=== PATIENT | female | born 1940 | race Caucasian/White ===

== ENCOUNTER 2017-03-14 10:34 | Outpatient (RCR) | payer MEDICARE, BC, SELFPAY ==
[2017-02-20 01:15] VITALS: BP 124/70; BP 152/80
[2017-03-14 12:25] LABS: International Normalized Ratio 3.5; Prothrombin Time (Protime)PT. 33.7 SECONDS (11.7-14.9)
== END 2017-03-14 10:50 | disposition home or self-care (01) ==
LOC: LAB 10:34
PROVIDERS: Family Provider Family Medicine; PCP Family Medicine; Visit Provider Internal Medicine Cardiovascular Disease
DX: I48.3 Typical atrial flutter (principal); Z79.01 Long term (current) 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
CPT/HCPCS: 36415; 85610

== ENCOUNTER 2017-04-17 10:40 | Outpatient (RCR) | payer MEDICARE, BC, SELFPAY ==
[2017-03-31 12:05] LABS: International Normalized Ratio 3.2; Prothrombin Time (Protime)PT. 31.7 SECONDS (11.7-14.9)
[2017-04-07 12:40] LABS: Prothrombin Time (Protime)PT. 29.9 SECONDS (11.7-14.9)
[2017-04-17 11:19] LABS: Prothrombin Time (Protime)PT. 33.7 SECONDS (11.7-14.9)
[2017-04-17 11:27] LABS: International Normalized Ratio 3.5
== END 2017-04-17 11:15 | disposition home or self-care (01) ==
LOC: LAB 10:40
PROVIDERS: Family Provider Family Medicine; PCP Family Medicine; Visit Provider Internal Medicine Cardiovascular Disease
DX: I48.3 Typical atrial flutter (principal); Z79.01 Long term (current) 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
CPT/HCPCS: 36415; 85610

== ENCOUNTER 2017-05-15 11:57 | Outpatient (RCR) | payer MEDICARE, BC, SELFPAY ==
[2017-05-15 12:55] LABS: Prothrombin Time (Protime)PT. 39.3 SECONDS (11.7-14.9)
== END 2017-05-15 12:00 | disposition home or self-care (01) ==
LOC: LAB 11:57
PROVIDERS: Family Provider Family Medicine; PCP Family Medicine; Visit Provider Internal Medicine Cardiovascular Disease
DX: I48.3 Typical atrial flutter (principal); Z79.01 Long term (current) 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
CPT/HCPCS: 36415; 85610

== ENCOUNTER 2017-06-09 10:38 | Outpatient (RCR) | payer MEDICARE, BC, SELFPAY ==
[2017-05-26 11:30] LABS: Prothrombin Time (Protime)PT. 36.3 SECONDS (11.7-14.9)
[2017-05-26 11:32] LABS: International Normalized Ratio 3.6
[2017-06-09 11:31] LABS: International Normalized Ratio 2.7; Prothrombin Time (Protime)PT. 28.9 SECONDS (11.7-14.9)
== END 2017-06-09 11:00 | disposition home or self-care (01) ==
LOC: LAB 10:38
PROVIDERS: Family Provider Family Medicine; PCP Family Medicine; Visit Provider Internal Medicine Cardiovascular Disease
DX: I48.3 Typical atrial flutter (principal); Z79.01 Long term (current) 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
CPT/HCPCS: 36415; 85610

== ENCOUNTER → 2017-06-20 08:43 | Outpatient (CLI) | payer MEDICARE, BC, SELFPAY ==
[2017-06-20 09:13] LABS: Absolute Lymphocyte Count 0.84 X10^3/ul (0.83-4.51); Absolute Neutrophil Count 3.1 X10^3/uL (2.0-7.7); Basophil# 0.07 X10^3/uL; Basophil% 1.3 % (0-1); Eosinophil# 0.28 X10^3/uL; Eosinophils% 5.3 % (0-5); Hematocrit 38.9 % (37-47); Hemoglobin 12.8 g/dl (12.0-15.0); Lymphocyte # 0.84 X10^3/ul (4.0); Mean Corp Hgb Conc 32.9 g/gl (32-36); Mean Corpuscular Hgb 32.8 pg (27.0-32.0); Mean Corpuscular Volume 99.7 fL (81-99); Mean Platelet Vol. 9.9 fl (6.2-12.0); Monocyte# 0.94 X10^3/uL; Monocyte% 17.9 % (0-10); Neutrophil # 3.12 X10^3/uL (2.7-7.7); Neutrophil % 59.3 % (47-70); Platelet Count 224 K/mm3 (150-450); RBC Distribution Width CV 15.4 % (11.6-14.6); RBC Distribution Width SD 56.1 fl (35.1-43.9); White Blood Count 5.3 K/mm3 (4.4-11.0)
[2017-06-20 09:22] LABS: POSITIVE COUNT NO; POSITIVE DIFFERENTIAL NO; POSITIVE MORPHOLOGY NO
[2017-06-20 10:02] LABS: AST(SGOT) 38 U/L (15-37); Alanine Aminotransfer ALT/SGPT 38 U/L (13-56); Albumin, Serum 3.5 g/dL (3.2-5.0); Alkaline Phosphatase 119 U/L (45-117); Anion Gap 6 (5-15); BUN 26 mg/dL (7-18); BUN/Creat Ratio 16.5 RATIO (10-20); Bilirubin, Direct 0.11 mg/dL (0.00-0.30); Calcium,Total 9.1 mg/dL (8.5-10.1); Chloride 109 mmol/L (98-107); Cholesterol 253 mg/dL (200); Creatinine, Serum 1.58 mg/dL (0.55-1.02); EST Glomerular Filtration Rate 34 mL/min (>60); Est Glom Filt Rate - Afr Amer 41 mL/min (>60); Globulin 3.7 g/dL (2.2-4.2); Glucose 87 mg/dL (74-106); High Density Lipoprotein 59 mg/dL; Protein, Total 7.2 g/dL (6.4-8.2); Sodium Level 141 mmol/L (136-145); T4 Free Direct 1.57 ng/dL (0.76-1.46); Thyroid Stim Hormone (TSH) 3.79 uIU/mL (0.358-3.74); Triglycerides 190 mg/dL; Very Low Density Lipoprotein 38 mg/dL (5-40)
== END ==
PROVIDERS: Family Provider Family Medicine; PCP Family Medicine; Visit Provider Internal Medicine Cardiovascular Disease
DX: E78.5 Hyperlipidemia, unspecified (principal); R06.09 Other forms of dyspnea; Z95.2 Presence of prosthetic heart valve; I05.1 Rheumatic mitral insufficiency; R53.83 Other fatigue; G47.10 Hypersomnia, unspecified; I48.92 Unspecified atrial flutter; I35.1 Nonrheumatic aortic (valve) insufficiency
CPT/HCPCS: 36415; 80048; 80061; 80076; 84439; 84443; 85025

== ENCOUNTER → 2017-06-30 09:50 | Outpatient (CLI) | payer MEDICARE, BC, SELFPAY ==
--- NOTE | 2017-06-30 09:51 | ECHOD_ITS ---
Reason For Study: Eval Valve Replacement Procedure This was a 2D Doppler, Color Flow transthoracic echocardiogram. Exam performed in department. Left Ventricle Normal size and thickness. The estimated ejection fraction is 60 %. Septal motion consistent with IVCD. No regional wall motion abnormalities noted. Right Ventricle Normal size and thickness. Normal systolic function. Atria The left atrium is moderately enlarged. Normal right atrium. Normal atrial septum. Mitral Valve Peak transmitral valve gradient 6 mmHg. Mean transmitral valve gradient 2 mmHg. Trivial mitral valve insufficiency. Stable appearing mechanical mitral valve apparatus. Tricuspid Valve Normal tricuspid valve. Mild (1+) tricuspid valve insufficiency. Right ventricular systolic pressure estimated to be 25 mmHg. Aortic Valve Bioprosthetic aortic valve. Pulmonic Valve Normal pulmonic valve. Trivial pulmonic valve insufficiency. Great Vessels Normal aortic root. Normal arch. Normal inferior vena cava. Inferior vena cava collapse with sniff. Pericardium/Pleural No pericardial effusion. MMode/2D Measurements & Calculations LVIDd: 5.3 cm IVSd: 0.86 cm LVOT diam: 2.1 cm LVIDs: 3.2 cm LVPWd: 0.77 cm LVOT area: 3.6 cm2 RVDd: 3.1 cm FS: 38.9 % Ao root diam: 4.0 cm LAV(MOD-bp): 76.3 ml EDV(MOD-sp4): 87.3 ml LA dimension: 3.7 cm LAV(MOD-bp) Indexed: 44.6 ml/m2 ESV(MOD-sp4): 37.9 ml LAV(MOD-sp2): 77.6 ml EF(MOD-sp4): 56.6 % LAV(MOD-sp4): 56.3 ml SV(MOD-sp4): 49.4 ml LA A4 area: 21.9 cm2 RA A4 area: 14.7 cm2 Time Measurements MV dec time: 0.13 sec Doppler Measurements & Calculations MV E max iván: 110.3 cm/sec Lat Peak E' Iván: 3.7 cm/sec Med Peak E' Iván: 3.1 cm/sec MV A max iván: 62.4 cm/sec E/E' lat: 29.5 E/E' med: 35.6 MV E/A: 1.8 MV V2 max: 125.1 cm/sec MV P1/2t max iván: 123.5 cm/sec Ao V2 max: 215.8 cm/sec MV max P.3 mmHg MV P1/2t: 93.7 msec Ao max P.6 mmHg MV V2 mean: 57.7 cm/sec MV dec slope: 386.1 cm/sec2 Ao V2 mean: 144.6 cm/sec MV mean P.6 mmHg MVA(P1/2t): 2.3 cm2 Ao mean P.3 mmHg MV V2 VTI: 47.1 cm Ao V2 VTI: 50.9 cm MVA(VTI): 2.3 cm2 CHRISTINA(I,D): 2.1 cm2 CHRISTINA(V,D): 2.1 cm2 LV V1 max: 128.7 cm/sec SV(LVOT): 108.7 ml PA V2 max: 93.2 cm/sec LV V1 max P.6 mmHg LV V1 mean P.8 mmHg LV V1 mean: 93.4 cm/sec LV V1 VTI: 30.5 cm PI end-d iván: 84.0 cm/sec TR max iván: 221.9 cm/sec TR max P.7 mmHg Interpretation Summary The estimated ejection fraction is 60 %. The left atrium is moderately enlarged. Mild (1+) tricuspid valve insufficiency. Right ventricular systolic pressure estimated to be 25 mmHg. Stable appearing mechanical mitral valve apparatus with peak/mean gradients of 6 and 2 mm Hg respectively. Normal bioprosthetic aortic valve with peak/mean gradients of 19 and 9 mm Hg respectively. Compared to echo report dated 01/21/2016, no appreciable changes noted. Ordering Physician: Reed Monet Referring Physician: Newton Gibbs Performed By: Bella Bush RDCS, RVT
== END ==
PROVIDERS: Family Provider Family Medicine; PCP Family Medicine; Visit Provider Internal Medicine Cardiovascular Disease
DX: Z98.890 Other specified postprocedural states (principal)
CPT/HCPCS: 93306

== ENCOUNTER → 2017-07-04 08:41 | Outpatient (CLI) | payer MEDICARE, BC, SELFPAY ==
--- NOTE | 2017-07-04 10:54 | PFTCOMP ---
COMPLETE PULMONARY FUNCTION TEST INTERPRETATION Brief HPI: Patient is a 76 year old female, currently under the care of Dr. Monet, who presents to [facility] for complete pulmonary function tests secondary to diagnosis of high risk med use. Respiratory therapist reports good effort and reproducible results. Interpretation: Forced expiration spirometry shows no large airways obstructive ventilatory defect with an FEV1 of 101% predicted. There is no significant bronchodilator response by ATS criteria. Spirograms are of good quality and plateau normally. The respiratory flow volume loop shows a normal pattern. Lung volumes by body plethysmography show a normal total lung capacity at or 4.21 L, 92% predicted. All other lung volumes are within normal limits. Diffusion capacity by carbon monoxide is decreased at 44% predicted. The airway resistance is normal. No previous pulmonary function tests were available for review. Impression: Isolated defect in diffusion capacity consistent with pulmonary hypertension or possible medication side effect. Will need to be followed closely if patient continues on amiodarone.
== END ==
PROVIDERS: Family Provider Family Medicine; PCP Family Medicine; Visit Provider Internal Medicine Cardiovascular Disease
DX: I48.92 Unspecified atrial flutter (principal)
CPT/HCPCS: 94060; 94726; 94729

== ENCOUNTER 2017-07-19 11:20 | Outpatient (RCR) | payer MEDICARE, BC, SELFPAY ==
[2017-07-19 13:12] LABS: International Normalized Ratio 3.5
== END 2017-07-19 12:00 | disposition home or self-care (01) ==
LOC: LAB 11:20
PROVIDERS: Family Provider Family Medicine; PCP Family Medicine; Visit Provider Internal Medicine Cardiovascular Disease
DX: I48.3 Typical atrial flutter (principal); Z79.01 Long term (current) 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
CPT/HCPCS: 36415; 85610

== ENCOUNTER 2017-08-14 09:10 | Outpatient (RCR) | payer MEDICARE, BC, SELFPAY ==
[2017-08-14 10:08] LABS: Prothrombin Time (Protime)PT. 40.2 SECONDS (11.7-14.9)
[2017-08-14 10:11] LABS: International Normalized Ratio 4.1
[2017-08-14 10:33] LABS: AST(SGOT) 33 U/L (15-37); Alanine Aminotransfer ALT/SGPT 35 U/L (13-56); Albumin, Serum 3.4 g/dL (3.2-5.0); Alkaline Phosphatase 116 U/L (45-117); Bilirubin, Direct 0.15 mg/dL (0.00-0.30); Cholesterol 198 mg/dL (200); Globulin 3.8 g/dL (2.2-4.2); High Density Lipoprotein 61 mg/dL; Protein, Total 7.2 g/dL (6.4-8.2); Triglycerides 170 mg/dL; Very Low Density Lipoprotein 34 mg/dL (5-40)
== END 2017-08-14 10:00 | disposition home or self-care (01) ==
LOC: LAB 09:10
PROVIDERS: Family Provider Family Medicine; PCP Family Medicine; Visit Provider Internal Medicine Cardiovascular Disease
DX: I48.3 Typical atrial flutter (principal); E78.5 Hyperlipidemia, unspecified; Z95.2 Presence of prosthetic heart valve; Z79.01 Long term (current) 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
CPT/HCPCS: 36415; 80061; 80076; 85610

== ENCOUNTER 2017-09-15 12:32 | Outpatient (RCR) | payer MEDICARE, BC, SELFPAY ==
[2017-08-21 11:15] LABS: Prothrombin Time (Protime)PT. 36.2 SECONDS (11.7-14.9)
[2017-08-21 11:17] LABS: International Normalized Ratio 3.6
[2017-08-28 11:43] LABS: Prothrombin Time (Protime)PT. 30.9 SECONDS (11.7-14.9)
[2017-09-11 12:18] LABS: International Normalized Ratio 2.3
[2017-09-15 14:00] LABS: International Normalized Ratio 2.4; Prothrombin Time (Protime)PT. 26.1 SECONDS (11.7-14.9)
== END 2017-09-15 14:00 | disposition home or self-care (01) ==
LOC: LAB 12:32
PROVIDERS: Family Provider Family Medicine; PCP Family Medicine; Visit Provider Internal Medicine Cardiovascular Disease
DX: I48.3 Typical atrial flutter (principal); Z79.01 Long term (current) 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
CPT/HCPCS: 36415; 85610

== ENCOUNTER 2017-10-20 10:43 | Outpatient (RCR) | payer MEDICARE, BC, SELFPAY ==
[2017-09-22 12:56] LABS: International Normalized Ratio 3.1; Prothrombin Time (Protime)PT. 32.4 SECONDS (11.7-14.9)
[2017-09-22 13:50] LABS: T4 Free Direct 1.42 ng/dL (0.76-1.46); Thyroid Stim Hormone (TSH) 1.79 uIU/mL (0.358-3.74)
[2017-10-06 12:36] LABS: International Normalized Ratio 2.7; Prothrombin Time (Protime)PT. 28.9 SECONDS (11.7-14.9)
[2017-10-20 11:30] LABS: International Normalized Ratio 3.1; Prothrombin Time (Protime)PT. 31.9 SECONDS (11.7-14.9)
== END 2017-10-20 12:00 | disposition home or self-care (01) ==
LOC: LAB 10:43
PROVIDERS: Family Provider Family Medicine; PCP Family Medicine; Visit Provider Internal Medicine Cardiovascular Disease
DX: I48.3 Typical atrial flutter (principal); R06.09 Other forms of dyspnea; R53.83 Other fatigue; G47.10 Hypersomnia, unspecified; E78.5 Hyperlipidemia, unspecified; I48.92 Unspecified atrial flutter; I05.1 Rheumatic mitral insufficiency; I35.1 Nonrheumatic aortic (valve) insufficiency; Z95.2 Presence of prosthetic heart valve; Z98.890 Other specified postprocedural states; Z79.01 Long term (current) 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
CPT/HCPCS: 36415; 84439; 84443; 85610

== ENCOUNTER → 2017-10-26 15:18 | Outpatient (CLI) | payer MEDICARE, BC, SELFPAY | PROVIDERS: Family Provider Family Medicine; PCP Family Medicine; Visit Provider Nurse Practitioner Women's Health | DX: Z78.0 Asymptomatic menopausal state (principal); Z12.31 Encounter for screening mammogram for malignant neoplasm of breast | CPT/HCPCS: 77063; 77067; 77080 ==

== ENCOUNTER 2017-11-10 10:20 | Outpatient (RCR) | payer MEDICARE, BC, SELFPAY ==
[2017-11-10 11:07] LABS: International Normalized Ratio 2.9; Prothrombin Time (Protime)PT. 30.7 SECONDS (11.7-14.9)
== END 2017-11-10 12:00 | disposition home or self-care (01) ==
LOC: LAB 10:20
PROVIDERS: Family Provider Family Medicine; PCP Family Medicine; Visit Provider Internal Medicine Cardiovascular Disease
DX: I48.3 Typical atrial flutter (principal); Z79.01 Long term (current) 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
CPT/HCPCS: 36415; 85610

== ENCOUNTER 2017-12-15 11:06 | Outpatient (RCR) | payer MEDICARE, BC, SELFPAY ==
[2017-11-24 15:06] LABS: International Normalized Ratio 2.9; Prothrombin Time (Protime)PT. 30.3 SECONDS (11.7-14.9)
[2017-12-15 11:34] LABS: International Normalized Ratio 2.6; Prothrombin Time (Protime)PT. 27.7 SECONDS (11.7-14.9)
== END 2017-12-15 12:00 | disposition home or self-care (01) ==
LOC: LAB 11:06
PROVIDERS: Family Provider Family Medicine; PCP Family Medicine; Referring Provider Internal Medicine Cardiovascular Disease; Visit Provider Internal Medicine Cardiovascular Disease
DX: I48.3 Typical atrial flutter (principal); Z79.01 Long term (current) 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
CPT/HCPCS: 36415; 85610

== ENCOUNTER 2018-01-05 11:39 | Outpatient (RCR) | payer MEDICARE, BC, SELFPAY ==
[2017-12-29 12:02] LABS: International Normalized Ratio 2.3
[2018-01-05 12:51] LABS: International Normalized Ratio 2.9; Prothrombin Time (Protime)PT. 30.7 SECONDS (11.7-14.9)
== END 2018-01-19 10:38 | disposition home or self-care (01) ==
LOC: LAB 11:39
PROVIDERS: Family Provider Family Medicine; PCP Family Medicine; Referring Provider Internal Medicine Cardiovascular Disease; Visit Provider Internal Medicine Cardiovascular Disease
DX: I48.3 Typical atrial flutter (principal); Z79.01 Long term (current) 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
CPT/HCPCS: 36415; 85610

== ENCOUNTER 2018-02-09 10:02 | Outpatient (RCR) | payer MEDICARE, BC, SELFPAY ==
[2018-01-05 10:57] VITALS: BMI 27.8
[2018-01-25 09:54] LABS: International Normalized Ratio 2.4; Prothrombin Time (Protime)PT. 26.6 SECONDS (11.7-14.9)
[2018-02-09 11:21] LABS: Prothrombin Time (Protime)PT. 35.2 SECONDS (11.7-14.9)
[2018-02-09 11:24] LABS: International Normalized Ratio 3.5
[2018-02-09 12:20] LABS: AST(SGOT) 28 U/L (15-37); Alanine Aminotransfer ALT/SGPT 24 U/L (13-56); Albumin, Serum 3.6 g/dL (3.2-5.0); Alkaline Phosphatase 116 U/L (45-117); Bilirubin, Direct 0.22 mg/dL (0.00-0.30); Cholesterol 191 mg/dL (200); Globulin 3.7 g/dL (2.2-4.2); High Density Lipoprotein 63 mg/dL; Protein, Total 7.3 g/dL (6.4-8.2); Triglycerides 133 mg/dL; Very Low Density Lipoprotein 27 mg/dL (5-40)
== END 2018-02-09 10:30 | disposition home or self-care (01) ==
LOC: LAB 10:02
PROVIDERS: Physician Assistant Medical; Family Provider Family Medicine; PCP Family Medicine; Referring Provider Internal Medicine Cardiovascular Disease; Visit Provider Internal Medicine Cardiovascular Disease
DX: I48.3 Typical atrial flutter (principal); Z79.01 Long term (current) 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; E78.5 Hyperlipidemia, unspecified
CPT/HCPCS: 36415; 80061; 80076; 85610

== ENCOUNTER 2018-03-16 12:02 | Outpatient (RCR) | payer MEDICARE, BC, SELFPAY ==
[2018-01-05 10:57] VITALS: BMI 27.8
[2018-02-23 10:33] LABS: International Normalized Ratio 3.3; Prothrombin Time (Protime)PT. 34.1 SECONDS (11.7-14.9)
[2018-03-16 12:50] LABS: International Normalized Ratio 3.1
== END 2018-03-16 13:02 | disposition home or self-care (01) ==
LOC: LAB 12:02
PROVIDERS: Family Provider Family Medicine; PCP Family Medicine; Referring Provider Internal Medicine Cardiovascular Disease; Visit Provider Internal Medicine Cardiovascular Disease
DX: I35.1 Nonrheumatic aortic (valve) insufficiency (principal); Z79.01 Long term (current) 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; Z95.2 Presence of prosthetic heart valve
CPT/HCPCS: 36415; 85610

== ENCOUNTER 2018-04-16 10:56 | Outpatient (RCR) | payer MEDICARE, BC, SELFPAY ==
[2018-01-05 10:57] VITALS: BMI 27.8
[2018-04-03 14:06] VITALS: BMI 27.8
[2018-04-06 11:03] LABS: Prothrombin Time (Protime)PT. 36.8 SECONDS (11.7-14.9)
[2018-04-06 11:20] LABS: International Normalized Ratio 3.7
[2018-04-16 11:58] LABS: International Normalized Ratio 2.5; Prothrombin Time (Protime)PT. 27.3 SECONDS (11.7-14.9)
== END 2018-04-19 14:06 | disposition home or self-care (01) ==
LOC: LAB 10:56
PROVIDERS: Family Provider Family Medicine; PCP Family Medicine; Referring Provider Internal Medicine Cardiovascular Disease; Visit Provider Internal Medicine Cardiovascular Disease
DX: I35.1 Nonrheumatic aortic (valve) insufficiency (principal); Z79.01 Long term (current) 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; Z95.2 Presence of prosthetic heart valve
CPT/HCPCS: 36415; 85610

== ENCOUNTER 2018-05-14 11:27 | Outpatient (RCR) | payer MEDICARE, BC, SELFPAY ==
[2018-04-03 14:06] VITALS: BMI 27.8
[2018-04-30 12:37] LABS: International Normalized Ratio 2.4; Prothrombin Time (Protime)PT. 26.4 SECONDS (11.7-14.9)
[2018-05-14 12:44] LABS: International Normalized Ratio 2.8; Prothrombin Time (Protime)PT. 29.2 SECONDS (11.7-14.9)
== END 2018-05-14 12:00 | disposition home or self-care (01) ==
LOC: LAB 11:27
PROVIDERS: Family Provider Family Medicine; PCP Family Medicine; Referring Provider Internal Medicine Cardiovascular Disease; Visit Provider Internal Medicine Cardiovascular Disease
DX: I35.1 Nonrheumatic aortic (valve) insufficiency (principal); Z79.01 Long term (current) 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; Z95.2 Presence of prosthetic heart valve
CPT/HCPCS: 36415; 85610

== ENCOUNTER 2018-06-11 09:21 | Outpatient (RCR) | payer MEDICARE, BC, SELFPAY ==
[2018-04-03 14:06] VITALS: BMI 27.8
[2018-05-28 11:51] LABS: International Normalized Ratio 2.4
[2018-06-11 10:55] LABS: International Normalized Ratio 3.2; Prothrombin Time (Protime)PT. 33.3 SECONDS (11.7-14.9)
== END 2018-06-19 16:00 | disposition home or self-care (01) ==
LOC: LAB 09:21
PROVIDERS: Family Provider Family Medicine; PCP Family Medicine; Referring Provider Internal Medicine Cardiovascular Disease; Visit Provider Internal Medicine Cardiovascular Disease
DX: I35.1 Nonrheumatic aortic (valve) insufficiency (principal); Z79.01 Long term (current) 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; Z95.2 Presence of prosthetic heart valve
CPT/HCPCS: 36415; 85610

== ENCOUNTER 2018-07-17 12:00 | Outpatient (RCR) | payer MEDICARE, BC, SELFPAY ==
[2018-04-03 14:06] VITALS: BMI 27.8
[2018-07-03 12:46] LABS: Prothrombin Time (Protime)PT. 42.2 SECONDS (11.7-14.9)
[2018-07-03 12:55] LABS: International Normalized Ratio 4.4
[2018-07-10 10:31] LABS: International Normalized Ratio 4.2
== END 2018-07-17 13:00 | disposition home or self-care (01) ==
LOC: LAB 12:00
PROVIDERS: Family Provider Family Medicine; PCP Family Medicine; Referring Provider Internal Medicine Cardiovascular Disease; Visit Provider Internal Medicine Cardiovascular Disease
DX: I35.1 Nonrheumatic aortic (valve) insufficiency (principal); Z79.01 Long term (current) 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; Z95.2 Presence of prosthetic heart valve
CPT/HCPCS: 36415; 85610

== ENCOUNTER 2018-07-24 10:49 | Outpatient (RCR) | payer MEDICARE, BC, SELFPAY ==
[2018-04-03 14:06] VITALS: BMI 27.8
[2018-07-24 11:47] LABS: International Normalized Ratio 2.8; Prothrombin Time (Protime)PT. 29.6 SECONDS (11.7-14.9)
== END 2018-08-19 12:00 | disposition home or self-care (01) ==
LOC: LAB 10:49
PROVIDERS: Family Provider Family Medicine; PCP Family Medicine; Referring Provider Internal Medicine Cardiovascular Disease; Visit Provider Internal Medicine Cardiovascular Disease
DX: I35.1 Nonrheumatic aortic (valve) insufficiency (principal); Z79.01 Long term (current) 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; Z95.2 Presence of prosthetic heart valve
CPT/HCPCS: 36415; 85610

== ENCOUNTER → 2018-07-30 12:21 | Outpatient (CLI) | payer MEDICARE, BC, SELFPAY ==
[2018-07-26 11:34] VITALS: BMI 26.5
[2018-07-30 13:38] LABS: International Normalized Ratio 2.7; Prothrombin Time (Protime)PT. 28.5 SECONDS (11.7-14.9)
[2018-07-30 14:01] LABS: T4 Total, Thyroxin 11.2 ug/dL (4.8-13.9); Thyroid Stim Hormone (TSH) 2.11 uIU/mL (0.358-3.74)
--- NOTE | 2018-07-30 14:34 | PFTCOMP ---
COMPLETE PULMONARY FUNCTION TEST INTERPRETATION Brief HPI: Patient is a 77 year old female, currently under the care of Dr. Monet, who presents to [facility] for complete pulmonary function tests secondary to diagnosis of dyspnea and high risk meds. Respiratory therapist reports good effort and reproducible results. Interpretation: Forced expiration spirometry shows no large airways obstructive ventilatory defect with an FEV1 of 113% predicted. There is no significant bronchodilator response by strict ATS criteria. Spirograms are of good quality and plateau normally. The respiratory flow volume loop shows decreased expiratory flow rates at high lung volumes consistent with small airways obstruction. Lung volumes by body plethysmography show a normal total lung capacity at 4.21 L, 96% predicted. All other lung volumes are within normal limits. Diffusion capacity by carbon monoxide is decreased at 51% predicted. The airway resistance is normal. Compared to previous pulmonary function tests from 07/04/2017, there is been a slight increase in DLCO by 10%. Impression: Isolated reduction diffusion capacity consistent with a pulmonary vascular disorder. There has been slight improvement compared to previous study.
== END ==
PROVIDERS: Family Provider Family Medicine; PCP Family Medicine; Referring Provider Internal Medicine Cardiovascular Disease; Visit Provider Internal Medicine Cardiovascular Disease
DX: R06.09 Other forms of dyspnea (principal); I48.92 Unspecified atrial flutter; Z95.2 Presence of prosthetic heart valve
CPT/HCPCS: 36415; 84436; 84443; 85610; 94060; 94726; 94729

== ENCOUNTER → 2018-08-16 10:50 | Outpatient (CLI) | payer MEDICARE, BC, SELFPAY ==
[2018-07-26 11:34] VITALS: BMI 26.5
--- NOTE | 2018-08-16 10:51 | ECHOD_ITS ---
Reason For Study: Valve Replacement Eval Procedure This was a 2D Doppler, Color Flow transthoracic echocardiogram. Exam performed in department. Left Ventricle Mildly dilated left ventricle. The estimated ejection fraction is 55 %. No regional wall motion abnormalities noted. Right Ventricle Normal size and thickness. Normal systolic function. Atria The left atrium is mildly enlarged. Normal right atrium. Normal atrial septum. Mitral Valve Peak transmitral valve gradient 10 mmHg. Mean transmitral valve gradient 2 mmHg. Stable appearing mechanical mitral valve apparatus. Tricuspid Valve Normal tricuspid valve. Mild (1+) tricuspid valve insufficiency. Right ventricular systolic pressure estimated to be 28 mmHg. Aortic Valve Peak aortic valve gradient 16 mmHg. Mean aortic valve gradient 9 mmHg. Stable appearing bioprosthetic aortic valve apparatus. Pulmonic Valve Normal pulmonic valve. Mild (1+) pulmonic valve insufficiency. Great Vessels Normal aortic root. Mild atherosclerosis of the aortic arch. Normal inferior vena cava. Inferior vena cava collapse with sniff. Pericardium/Pleural No pericardial effusion. MMode/2D Measurements & Calculations LVIDd: 5.0 cm IVSd: 1.0 cm LVOT diam: 2.1 cm LVIDs: 3.4 cm LVPWd: 0.96 cm LVOT area: 3.5 cm2 RVDd: 3.0 cm FS: 30.5 % Ao root diam: 3.8 cm LAV(MOD-bp): 79.7 ml LVAd ap4: 25.2 cm2 LAV(MOD-bp) Indexed: 46.0 ml/m2 EDV(MOD-sp4): 70.5 ml LAV(MOD-sp2): 90.7 ml EDV(sp4-el): 71.5 ml LAV(MOD-sp4): 66.3 ml LVAs ap4: 15.4 cm2 ESV(MOD-sp4): 31.7 ml ESV(sp4-el): 32.1 ml EF(MOD-sp4): 55.0 % EF(sp4-el): 55.1 % SV(MOD-sp4): 38.8 ml SV(sp4-el): 39.3 ml LA A4 area: 22.4 cm2 LA dimension(2D): 4.1 cm RA A4 area: 15.8 cm2 Time Measurements MV dec time: 0.13 sec Doppler Measurements & Calculations MV E max iván: 142.4 cm/sec Lat Peak E' Iván: 8.9 cm/sec Med Peak E' Iván: 3.5 cm/sec MV A max iván: 67.9 cm/sec E/E' lat: 16.0 E/E' med: 40.1 MV E/A: 2.1 MV V2 max: 157.6 cm/sec MV P1/2t max iván: 164.6 cm/sec Ao V2 max: 202.1 cm/sec MV max P.9 mmHg MV P1/2t: 76.0 msec Ao max P.3 mmHg MV V2 mean: 67.4 cm/sec Ao V2 mean: 140.9 cm/sec MV mean P.3 mmHg MV dec slope: 634.6 cm/sec2 Ao mean P.7 mmHg MV V2 VTI: 46.8 cm MVA(P1/2t): 2.9 cm2 Ao V2 VTI: 49.8 cm MVA(VTI): 2.3 cm2 CHRISTINA(I,D): 2.1 cm2 CHRISTINA(V,D): 2.1 cm2 LV V1 max: 124.0 cm/sec SV(LVOT): 106.8 ml PA V2 max: 99.2 cm/sec LV V1 max P.2 mmHg LV V1 mean P.2 mmHg LV V1 mean: 85.4 cm/sec LV V1 VTI: 30.5 cm PI end-d iván: 102.1 cm/sec TR max iván: 237.3 cm/sec TR max P.5 mmHg Interpretation Summary Mildly dilated left ventricle. The estimated ejection fraction is 55 %. The left atrium is mildly enlarged. Mild (1+) tricuspid valve insufficiency. Right ventricular systolic pressure estimated to be 28 mmHg. Stable appearing bioprosthetic aortic valve apparatus. Mild (1+) pulmonic valve insufficiency. Compared to echo report dated 06/30/2017, no appreciable changes noted. Ordering Physician: Reed Monet Referring Physician: Newton Fonseca Performed By: Bella Bush RDCS, RVT
== END ==
PROVIDERS: Family Provider Family Medicine; PCP Family Medicine; Referring Provider Internal Medicine Cardiovascular Disease; Visit Provider Internal Medicine Cardiovascular Disease
DX: R06.09 Other forms of dyspnea (principal)
CPT/HCPCS: 93306

== ENCOUNTER 2018-09-17 08:57 | Outpatient (RCR) | payer MEDICARE, BC, SELFPAY ==
[2018-07-26 11:34] VITALS: BMI 26.5
[2018-08-21 10:35] LABS: International Normalized Ratio 2.2; Prothrombin Time (Protime)PT. 24.7 SECONDS (11.7-14.9)
[2018-08-28 11:56] LABS: International Normalized Ratio 2.4; Prothrombin Time (Protime)PT. 26.1 SECONDS (11.7-14.9)
[2018-09-05 10:41] LABS: Prothrombin Time (Protime)PT. 22.8 SECONDS (11.7-14.9)
[2018-09-12 11:57] LABS: International Normalized Ratio 1.9; Prothrombin Time (Protime)PT. 21.9 SECONDS (11.7-14.9)
[2018-09-17 10:10] LABS: Prothrombin Time (Protime)PT. 22.8 SECONDS (11.7-14.9)
== END 2018-09-17 09:00 | disposition home or self-care (01) ==
LOC: LAB 08:57
PROVIDERS: Family Provider Family Medicine; PCP Family Medicine; Referring Provider Internal Medicine Cardiovascular Disease; Visit Provider Internal Medicine Cardiovascular Disease
DX: I35.1 Nonrheumatic aortic (valve) insufficiency (principal); Z79.01 Long term (current) 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; Z95.2 Presence of prosthetic heart valve
CPT/HCPCS: 36415; 85610

== ENCOUNTER 2018-10-18 10:33 | Outpatient (RCR) | payer MEDICARE, BC, SELFPAY ==
[2018-07-26 11:34] VITALS: BMI 26.5
[2018-09-21 10:06] LABS: International Normalized Ratio 2.3; Prothrombin Time (Protime)PT. 24.9 SECONDS (11.7-14.9)
[2018-09-27 10:44] LABS: International Normalized Ratio 2.4
[2018-10-04 12:24] LABS: International Normalized Ratio 2.3; Prothrombin Time (Protime)PT. 24.9 SECONDS (11.7-14.9)
[2018-10-11 12:51] LABS: International Normalized Ratio 2.9; Prothrombin Time (Protime)PT. 30.4 SECONDS (11.7-14.9)
[2018-10-18 11:30] LABS: International Normalized Ratio 2.8; Prothrombin Time (Protime)PT. 29.7 SECONDS (11.7-14.9)
== END 2018-10-18 13:00 | disposition home or self-care (01) ==
LOC: LAB 10:33
PROVIDERS: Family Provider Family Medicine; PCP Family Medicine; Referring Provider Internal Medicine Cardiovascular Disease; Visit Provider Internal Medicine Cardiovascular Disease
DX: I35.1 Nonrheumatic aortic (valve) insufficiency (principal); Z79.01 Long term (current) 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; Z95.2 Presence of prosthetic heart valve
CPT/HCPCS: 36415; 85610

== ENCOUNTER 2018-11-01 10:58 | Outpatient (RCR) | payer MEDICARE, BC, SELFPAY ==
[2018-07-26 11:34] VITALS: BMI 26.5
[2018-11-01 11:45] LABS: International Normalized Ratio 2.9; Prothrombin Time (Protime)PT. 30.6 SECONDS (11.7-14.9)
== END 2018-11-01 13:00 | disposition home or self-care (01) ==
LOC: LAB 10:58
PROVIDERS: Family Provider Family Medicine; PCP Family Medicine; Referring Provider Internal Medicine Cardiovascular Disease; Visit Provider Internal Medicine Cardiovascular Disease
DX: I35.1 Nonrheumatic aortic (valve) insufficiency (principal); Z79.01 Long term (current) 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; Z95.2 Presence of prosthetic heart valve
CPT/HCPCS: 36415; 85610

== ENCOUNTER → 2018-11-02 09:57 | Outpatient (CLI) | payer MEDICARE, BC, SELFPAY ==
[2018-07-26 11:34] VITALS: BMI 26.5
--- NOTE | 2018-11-02 10:34 | BI_ITS ---
MAMMOGRAPHY - BILATERAL SCREENING REASON FOR EXAM: Female, 77 years old. Routine annual screening examination. PERTINENT HISTORY: Aunt with breast cancer. TECHNIQUE: Digital bilateral breast edda (3D mammographic acquisition) in the CC and MLO projections. 2-D mediolateral oblique (MLO) and craniocaudad (CC) views of both breasts were obtained. CAD: Full Field Digital Mammography with Computer Added Detection was performed. COMPARISON: Comparison is made with prior study dated October 26, 2017 and August 05, 2016. FINDINGS: Breast Composition: There are scattered areas of fibroglandular density. There are no dominant masses or suspicious calcifications. No other significant abnormalities are identified. There has been no significant change since the prior study. BI/SCREEN MAMM (CAD) W/EDDA BILAT IMPRESSION: Stable bilateral screening mammogram. Yearly follow-up mammogram recommended. (A) ASSESSMENT CATEGORY: BIRADS Category 1: Negative. A letter regarding these results will be sent to the patient by the facility within 30 days. Approximately 10% of breast cancers are not detected by mammography. A normal mammogram should not delay biopsy of a clinically suspicious abnormality. [id number] Electronically Signed: Walter Vickers, at 11:28 EDT , Service support ,
== END ==
PROVIDERS: Family Provider Family Medicine; PCP Family Medicine; Referring Provider Nurse Practitioner Women's Health; Visit Provider Nurse Practitioner Women's Health
DX: Z12.31 Encounter for screening mammogram for malignant neoplasm of breast (principal); Z80.3 Family history of malignant neoplasm of breast
CPT/HCPCS: 77063; 77067

== ENCOUNTER → 2018-11-19 09:23 | Outpatient (CLI) | payer MEDICARE, BC, SELFPAY ==
[2018-07-26 11:34] VITALS: BMI 26.5
== END ==
PROVIDERS: Family Provider Family Medicine; PCP Family Medicine; Referring Provider Nurse Practitioner Family; Visit Provider Nurse Practitioner Family
DX: I48.92 Unspecified atrial flutter (principal); R00.2 Palpitations
CPT/HCPCS: 93225; 93226

== ENCOUNTER 2018-12-20 10:48 | Outpatient (RCR) | payer MEDICARE, BC, SELFPAY ==
[2018-07-26 11:34] VITALS: BMI 26.5
[2018-11-22 11:39] LABS: International Normalized Ratio 4.7
[2018-11-22 11:41] LABS: Prothrombin Time (Protime)PT. 44.8 SECONDS (11.7-14.9)
[2018-11-29 13:24] LABS: International Normalized Ratio 3.1; Prothrombin Time (Protime)PT. 31.8 SECONDS (11.7-14.9)
[2018-12-13 13:11] LABS: International Normalized Ratio 3.8; Prothrombin Time (Protime)PT. 37.9 SECONDS (11.7-14.9)
[2018-12-20 12:10] LABS: Prothrombin Time (Protime)PT. 37.9 SECONDS (11.7-14.9)
[2018-12-20 12:35] LABS: Anion Gap 6 (5-15); BUN 32 mg/dL (7-18); BUN/Creat Ratio 19.6 RATIO (10-20); Calcium,Total 9.2 mg/dL (8.5-10.1); Chloride 109 mmol/L (98-107); Creatinine, Serum 1.63 mg/dL (0.55-1.02); EST Glomerular Filtration Rate 33 mL/min (>60); Est Glom Filt Rate - Afr Amer 39 mL/min (>60); Glucose 83 mg/dL (74-106); Potassium 4.1 mmol/L (3.5-5.1); Sodium Level 140 mmol/L (136-145)
[2018-12-20 13:18] LABS: International Normalized Ratio 3.8
== END 2018-12-20 18:00 | disposition home or self-care (01) ==
LOC: LAB 10:48
PROVIDERS: Family Provider Family Medicine; PCP Family Medicine; Referring Provider Internal Medicine Cardiovascular Disease; Visit Provider Internal Medicine Cardiovascular Disease
DX: I35.1 Nonrheumatic aortic (valve) insufficiency (principal); Z79.01 Long term (current) 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; Z95.2 Presence of prosthetic heart valve
CPT/HCPCS: 36415; 80048; 85610

== ENCOUNTER 2018-12-28 11:09 | Day surgery (SDC) | payer MEDICARE, BC, SELFPAY ==
[2018-12-03 10:02] VITALS: BMI 26.5
--- NOTE | 2018-12-20 11:15 | RAD_ITS ---
STUDY: X-RAY CHEST REASON FOR EXAM: Female, 78 years old. NO CHEST COMPLAINTS- HAVING A CARDIOVERSION PROCEDURE DONE SOON TECHNIQUE: PA and lateral views of the chest. COMPARISON: July 07, 2015 FINDINGS: Mild chronic interstitial scarring is seen in the bilateral lower lobes. No new opacity is seen. Sternal cerclage wires are present from a prior sternotomy. Normal heart size. Stable mediastinal structures. Stable visualized osseous structures. RAD/Chest PA and Lateral IMPRESSION: No acute process Electronically Signed: Petr Soler MD at 20:15 EDT , Service support ,
--- NOTE | 2018-12-28 10:55 | HP.PCM_ITS ---
History and Physical Date of Admission: 12/28/18 Mrs. 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 She had no associated bypass surgeries. She has no previous coronary disease or stenting. In addition she has had previously known mild aortic insufficiency, and occasional PVCs. Her previous echocardiogram in July 2011 demonstrated an LVEF of 53%, a normal functioning prosthetic #31 mm [place] mitral valve, and 2+ aortic insufficiency. Her RVSP was 27 mmHg. her more recent echocardiogram done after I saw her on 02/11/13 demonstrated an EF of 65%, moderately severe 3+ aortic insufficiency, RVSP of 22 mmHg, and normal functioning prosthetic mitral valve with a peak/mean gradientof 7/2 mmHg respectively. Her echocardiogram in January 2014 demonstrated an LVEF of 65%, normal pulmonary pressures, normal functioning prosthetic mitral valve, and 3+ aortic insufficiency, moderate to severe AI. repeat echocardiogram on 06/10/14 demonstrated an EF of 65%, normal prosthetic mitral valvular gradients, and mild aortic insufficiency. Patient underwent a EGD and see scope Dr. Gerard since her last visit both of which were negative. Patient was found to have significant 3-4+ aortic insufficiency and underwent successful bioprosthetic aortic valvular replacement by Dr. Nunez at [facility] on 01/21/15. Her coronary arteries were normal and did not require bypass surgery. This was complicated by a left pleural effusion which required percutaneous drainage several days after discharge. This was also done by Dr. Nunez at [facility]. Patient is now here for follow-up. She developed atrial flutter prior to cardiac rehab, was placed on beta eloy and amiodarone. She underwent successful DC cardioversion on 07/10/15. She completed all but 3 sessions of cardiac rehab. In early July 2015 she had a spontaneous mechanical fracture of her right lower leg at the ankle and underwent surgical correction. Postoperatively she developed hypotension and her Toprol was held for several days. She was found to have infected ankle hardware, and underwent complete hardware removal. she is now walking under own power and appears that her orthopedic issues have healed. She was on subsequent antibiotics for many weeks.She is now here in follow-up. Her main complaint now is fatigue, shortness of breath. She never completed her sleep study as requested last time. She denies any fevers, chills, chest pain, presyncope or syncope or palpitations. Patient had a repeat echocardiogram on 06/30/17 which demonstrated LVEF of 60%, RVSP of 25 mmHg, normal functioning bioprosthetic aortic valve. Patient is currently battling shingles over her right side, with both cream and Lyrica, and although it is improved since her last visit, it is still present. It occasionally limits her ability to take deep breaths in. She has been struggling with this for many months she has not tried prednisone therapy as of yet. Pulmonary function test on 07/04/2017 which showed a DLCO of 44% predicted. No COPD noted. Normal lung volume. TSH and T4 pending. Her main complaint today is dyspnea on exertion and shortness of breath, which appears to been present for many months. She is no longer on lisinopril but still continues to have a dry hacking cough. Pt denies chest, arm, jaw, or neck discomfort. Her exercise tolerance is stable. Pt denies symptoms of CHF, lightheadedness, dizziness, near syncopal or syncopal episodes. Pt denies edema or claudication issues. Pt. denies orthopnea, PND, fever, chills, blood in urine, blood in stool, or myalgia. She states intermittent palpitations most noted in the evening. She states intermittent fatigue. Intake Vital Signs: See EMR Intake Visit Reasons: DCCV Allergies latex Allergy Itching Penicillins Allergy Rash Medications Aspirin [Aspirin, Baby] 81 mg PO DAILY@0800 08/12/14 [History Confirmed 12/28/18] Acetaminophen [Tylenol Extra Strength] 500 mg PO Q6H PRN PRN 05/25/16 [History Confirmed 12/28/18] Coumadin 1 mg tablet See Rx Instructions PO .COMPLEX #180 tab NS 07/26/18 [Rx Confirmed 12/27/18] Lasix 20 mg tablet 20 mg PO .COMPLEX #90 tab NS 07/26/18 [Rx Confirmed 12/28/18] ascorbic acid (vitamin C) 1,000 mg tablet 1 g PO DAILY tab 07/26/18 [History Confirmed 12/28/18] cholecalciferol (vitamin D3) 1,000 unit (25 mcg) tablet 1,000 unit PO BID tab 07/26/18 [History Confirmed 12/28/18] lysine 500 mg tablet 500 mg PO BID tab 07/26/18 [History Confirmed 12/28/18] simvastatin 20 mg tablet 20 mg PO QPM #90 tab 07/26/18 [Rx Confirmed 12/28/18] Coumadin 3 mg tablet See Rx Instructions PO .COMPLEX #90 tab NS 10/04/18 [Rx Confirmed 12/27/18] Toprol XL 25 mg tablet,extended release 25 mg PO BID #180 tab NS 10/16/18 [Rx C onfirmed 12/28/18] Amiodarone 200 mg tablet 200 mg PO DAILY 11/23/18 [History Confirmed 12/28/18] PFSH Medical History Hyperlipidemia (Chronic) Atrial flutter, paroxysmal (Chronic) 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) Shingles (Acute) 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 (Chronic) Migraines (Chronic) Psoriasis (Chronic) Surgical History History of cardioversion (Chronic 05/26/16) H/O mitral valve replacement (Chronic 07/12/00) H/O aortic valve replacement (Chronic 01/20/15) History of right and left heart catheterization (Chronic 12/26/14) History of thoracentesis (Chronic 02/01/15) Hx of cholecystectomy (Chronic) Right Tibial ORIF (Resolved) Social History Smoking Status: Never smoker alcohol intake: never substance use type: does not use caffeine: Yes what type of physical activity do you participate in: none seatbelt use: sometimes do you feel safe at home: Yes additional social history: - Joey Patient and retired ROS Const Const: Negative for fatigue, weakness, body ache, fever(s), headache(s), chills, frequent falls, night sweats, daytime sleepiness, difficulty sleeping, excessive sweating, weight gain, weight loss, increased appetite, poor appetite or anorexia Eyes Eyes: Negative for blind spots, loss of peripheral vision, transient loss of vision, blurry vision, change in vision, double vision, floaters, tunnel vision or other ENT ENT: Negative for headache(s), dizziness, hearing loss, tinnitus, Nosebleed/epistaxis, balance problems, post nasal drip, lip swelling, tongue swelling, bleeding gums, hoarseness, neck pain, dry mouth or other Cardio Chest Pain: No Palpitations: Yes Edema: Bilateral (Mild, chronic, nonpitting) Muscle aches with walking: None Resp Respiratory: negative for SOB with activity, SOB at rest, SOB orthopnea\SOB lying down, Coughing up blood/hemoptysis, chest congestion, pain on inspiration, snoring, stridor, wheezing, crackles, paroxysmal nocturnal dyspnea or other GI GI: Negative nausea, vomiting, heartburn, constipation, belching, bloating, cramping, vomiting blood/hematemesis, bright, red blood in stools, black,tarry stools, loose stools, Difficulty Swallowing or other : Negative for hematuria, frequent nighttime urination/ nocturia, erectile dysfunction or abnormal vaginal bleeding Musc Musc: Negative for muscle aches/ myalgia, muscle weakness, joint pain or balance problems Skin Skin: Negative redness, non-healing lesions, rash, unusual bruising, skin ulcer, wounds, jaundice or other Neuro Neuro: Negative for dizziness, lightheadedness, near syncope, syncope, orthostatic symptoms, frequent falls, headache(s), weakness, confusion, memory loss, restless legs, blurry vision, double vision, vertigo, seizures, lack of coordination or other Adrian Hematologic/Lymphatic: Negative for easy bleeding, easy bruising, enlarged lymph nodes or other Endo Endo: Positive for fatigue. Negative for cold intolerance, heat intolerance, excessive sweating, flushing, increased thirst/drinking, increased hunger, hair loss, hair growth or other Psych Psych: Negative for anxiety, depression, thoughts of harming anyone, thoughts of harming yourself, visual hallucinations, panic attacks or audible hallucinations Allergy Allergy/Immunology: Negative for throat swelling, Negative for tongue swelling, Negative for hives, Negative for rash, Negative for lip swelling Cardiology Exam Const Appearance: cooperative, healthy appearing and no acute distress Nutritional Appearance: well nourished Orientation: alert, oriented x3 and oriented to person Head Head: normal to inspection, normocephalic and atraumatic Nose: external nose normal Face and Sinus: face symmetric Mouth: oral mucosae normal Eyes General: appearance normal, both eyes and all related structures Eyelids: eyelids normal Conjunctivae: conjunctivae normal Pupils: PERRL and normal by confrontation EOM: EOM intact bilaterally Neck Neck: normal visual inspection and full ROM Carotids: normal carotid upstroke Chest Chest inspection: normal inspection of the chest Auscultation: Bilateral: Clear to Auscultation Cardio Palpation: normal PMI Rate: regular rate Rhythm: regular rhythm Heart sounds: S1 normal and S2 normal, crisp prosthetic click GI GI: normal to inspection, no hepatosplenomegaly and bowel sounds present Neuro General: alert, awake, oriented x3, CN's II-XI intact bilaterally and moves all extremities Skin Skin: no rashes or lesions noted Extremities Pulses: Normal: Right Dorsalis Pedis Pulse, Left Dorsalis Pedis Pulse, Right Radial Pulse, Left Radial Pulse Lower Extremity Edema: None: Bilateral Psych Psychological: normal affect Assessment & Plan 1. Atrial flutter, paroxysmal I48.92 Plan 1. Atrial flutter: She underwent a Holter monitor in November 2018 that showed a trial fibrillation with PVCs. Amiodarone 200 mg was restarted. Her INRs have remained therapeutic. She will proceed with cardioversion. Given her history of mitral valve replacement with a mechanical valve, she will continue with Coumadin therapy. If this is unsuccessful we can consider electrophysiology consult for ablation procedure. 2. Hyperlipidemia: Her most recent LDL was 101 on 02/09/2018, and HDL was 63. Repeat lipids are pending. Continue Zocor. 3. H/O mitral valve replacement Z95.[address] [place] Prosthetic Valve 07/12/2000 @ [facility] History of mitral valve and aortic valve replacement: Her echocardiogram in July 2018 showed ejection fraction of 55% and stable appearing bioprosthetic aortic valve apparatus. Her mitral valve showed peak valve gradient of 10 mmHg and a m cassandra valve gradient 2 mmHg and stable appearing mechanical mitral valve apparatus. She will continue current medical therapy. We will continue to monitor. Thank you for allowing us to participate in the patients plan of care, if you have any questions please do not hesitate to call. This note was generated using a voice recognition system and there may be incorrect words, spelling or punctuation that were not noted when reviewing the office note prior to saving.
[2018-12-28 11:16] VITALS: BMI 26.5
--- NOTE | 2018-12-28 13:06 | CARDIOVERS ---
Cardioversion Cardioversion: DC cardioversion: Patient was brought to the Squaring [facility] Operator holding area in the fasting state.The risk/benefits of the procedure were thoroughly explained the patient and informed consent was obtained. Defibrillator pads were placed in the AP position. With the assistance of Dr. Jhon Butterfield the patient was given 40 mg of IV propofol. Once adequate sedation was obtained, the patient received a single biphasic synchronized shock of 200 J which converted from atrial fibrillation/flutter to sinus bradycardia. This rhythm remained durable, and EKG confirmed sinus bradycardia, no acute changes. The patient spontaneously awoke, moves all 4 extremity's and tolerated the procedure well. Conclusions: Successful Coumadin and amiodarone assisted DC cardioversion with a single biphasic 200 J shockWhich converted her from atrial fibrillation/atrial flutter to normal sinus rhythm/sinus bradycardia. Recommendations: The patient will continue on her current antihypertensive and anticoagulant regimenGoing forward. She will see us in the office in 1 week's time for an EKG. Many thanks to Dr. Jhon Butterfield for his assistance during the cardioversion. Patient tolerated the procedure well. No complications.
--- NOTE | 2018-12-28 13:14 | PRO.PCM_ITS ---
Procedure Report Date of Procedure: 12/28/18 CONSCIOUS SEDATION REPORT DATE OF SERVICE: December 28, 2018 BRIEF HISTORY OF PRESENT ILLNESS: The patient is a 78-year-old female who presented to [facility] for an elective outpatient cardioversion due to underlying atrial fibrillation. The patient did undergo a prior cardioversion in 2017, during which time, she required 40 mg of propofol to achieve an appropriate level of sedation. Her last surface echocardiogram revealed an ejection fraction of approximately 53%. She is currently anticoagulated on Coumadin with an INR of 3.2. She denies any previous anesthetic complications. PHYSICAL EXAMINATION: VITAL SIGNS: Reviewed and were acceptable. GENERAL: The patient is a female, in no apparent distress, speaking in full sentences. HEENT: Normocephalic, atraumatic. Mucous membranes are moist and pink. Good mouth opening noted. Trachea is midline. Good neck mobility. CHEST: S1, S2 irregularly irregular. No murmurs, rubs or gallops were noted. LUNGS: Clear to auscultation bilaterally without appreciable wheezes, rales or rhonchi. ABDOMEN: Soft, nontender, nondistended. Positive bowel sounds. EXTREMITIES: There is no clubbing, cyanosis or edema. ASA Class: II DESCRIPTION OF PROCEDURE: After confirmation of informed consent, the patient's anesthesia plan was reviewed in detail. Propofol was chosen. Risks and benefits were reviewed and the patient agreed to proceed. At 1239, the patient was given 40 mg of propofol. The patient achieved an appropriate level of sedation and was given a 200 joule synchronized cardioversion by Dr. Monet at the bedside. This was successful in achieving normal sinus rhythm. The patient was monitored until 1249, at which time she reached her baseline mental status and function. The patient tolerated the procedure well. COMPLICATIONS: None ESTIMATED BLOOD LOSS: None RECOMMENDATIONS: Okay to recover in usual fashion. Code Visit 9xxxx: Other Procedure See Report - [id number]
== END 2018-12-28 13:55 | disposition home or self-care (01) ==
PROVIDERS: Family Provider Family Medicine; PCP Family Medicine; Referring Provider Internal Medicine Cardiovascular Disease; Visit Provider Internal Medicine Cardiovascular Disease
DX: I48.92 Unspecified atrial flutter (principal); I10 Essential (primary) hypertension; E78.5 Hyperlipidemia, unspecified; E78.00 Pure hypercholesterolemia, unspecified; Z95.2 Presence of prosthetic heart valve; Z79.01 Long term (current) 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; Z79.82 Long term (current) use of aspirin; Z79.899 Other long term (current) drug therapy
CPT/HCPCS: 36416; 71046; 85610; 92960; 93005; J7040

== ENCOUNTER 2019-01-11 12:09 | Outpatient (RCR) | payer MEDICARE, BC, SELFPAY ==
[2018-12-03 10:02] VITALS: BMI 26.5
[2018-12-24 12:44] LABS: Prothrombin Time (Protime)PT. 36.3 SECONDS (11.7-14.9)
[2018-12-24 13:05] LABS: International Normalized Ratio 3.6
[2019-01-04 13:01] LABS: Prothrombin Time (Protime)PT. 38.7 SECONDS (11.7-14.9)
[2019-01-04 13:04] LABS: International Normalized Ratio 3.9
[2019-01-11 13:46] LABS: International Normalized Ratio 3.2; Prothrombin Time (Protime)PT. 32.9 SECONDS (11.7-14.9)
[2019-01-11 13:58] LABS: Anion Gap 7 (5-15); BUN 28 mg/dL (7-18); BUN/Creat Ratio 17.8 RATIO (10-20); Calcium,Total 9.1 mg/dL (8.5-10.1); Chloride 108 mmol/L (98-107); Creatinine, Serum 1.57 mg/dL (0.55-1.02); EST Glomerular Filtration Rate 34 mL/min (>60); Est Glom Filt Rate - Afr Amer 41 mL/min (>60); Glucose 68 mg/dL (74-106); Sodium Level 142 mmol/L (136-145)
== END 2019-01-11 18:00 | disposition home or self-care (01) ==
LOC: LAB 12:09
PROVIDERS: Nurse Practitioner Family; Family Provider Family Medicine; PCP Family Medicine; Referring Provider Internal Medicine Cardiovascular Disease; Visit Provider Internal Medicine Cardiovascular Disease
DX: I35.1 Nonrheumatic aortic (valve) insufficiency (principal); Z79.01 Long term (current) 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; Z95.2 Presence of prosthetic heart valve
CPT/HCPCS: 36415; 80048; 85610

== ENCOUNTER 2019-02-11 11:35 | Outpatient (RCR) | payer MEDICARE, BC, SELFPAY ==
[2019-01-04 13:17] VITALS: BMI 26.5
[2019-01-25 09:17] LABS: International Normalized Ratio 3.7
[2019-01-25 09:29] LABS: Prothrombin Time (Protime)PT. 36.7 SECONDS (11.7-14.9)
[2019-02-01 10:41] LABS: International Normalized Ratio 2.8; Prothrombin Time (Protime)PT. 29.6 SECONDS (11.7-14.9)
[2019-02-11 12:36] LABS: Prothrombin Time (Protime)PT. 31.1 SECONDS (11.7-14.9)
== END 2019-02-11 18:00 | disposition home or self-care (01) ==
LOC: LAB 11:35
PROVIDERS: Family Provider Family Medicine; PCP Family Medicine; Referring Provider Internal Medicine Cardiovascular Disease; Visit Provider Internal Medicine Cardiovascular Disease
DX: I35.1 Nonrheumatic aortic (valve) insufficiency (principal); Z79.01 Long term (current) 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; Z95.2 Presence of prosthetic heart valve
CPT/HCPCS: 36415; 85610

== ENCOUNTER 2019-03-11 11:40 | Outpatient (RCR) | payer MEDICARE, BC, SELFPAY ==
[2019-02-14 11:45] VITALS: BMI 26.5
[2019-02-25 12:47] LABS: Prothrombin Time (Protime)PT. 35.6 SECONDS (11.7-14.9)
[2019-02-25 12:54] LABS: International Normalized Ratio 3.5
[2019-03-11 13:53] LABS: International Normalized Ratio 2.8; Prothrombin Time (Protime)PT. 29.8 SECONDS (11.7-14.9)
== END 2019-03-11 18:00 | disposition home or self-care (01) ==
LOC: LAB 11:40
PROVIDERS: Family Provider Family Medicine; PCP Family Medicine; Referring Provider Internal Medicine Cardiovascular Disease; Visit Provider Internal Medicine Cardiovascular Disease
DX: C47.1 Malignant neoplasm of peripheral nerves of upper limb, including shoulder (principal); R53.83 Other fatigue; E78.5 Hyperlipidemia, unspecified; I48.92 Unspecified atrial flutter; Z79.01 Long term (current) 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; Z98.890 Other specified postprocedural states
CPT/HCPCS: 36415; 85610

== ENCOUNTER 2019-04-01 09:44 | Outpatient (RCR) | payer MEDICARE, BC, SELFPAY ==
[2019-02-28 10:53] VITALS: BMI 27.4
[2019-04-01 11:21] LABS: Prothrombin Time (Protime)PT. 31.5 SECONDS (11.7-14.9)
[2019-04-01 11:49] LABS: AST(SGOT) 24 U/L (15-37); Alanine Aminotransfer ALT/SGPT 26 U/L (13-56); Albumin, Serum 3.5 g/dL (3.2-5.0); Alkaline Phosphatase 85 U/L (45-117); Bilirubin, Direct 0.16 mg/dL (0.00-0.30); Cholesterol 207 mg/dL (200); Globulin 3.8 g/dL (2.2-4.2); High Density Lipoprotein 63 mg/dL; Protein, Total 7.3 g/dL (6.4-8.2); Triglycerides 149 mg/dL; Very Low Density Lipoprotein 30 mg/dL (5-40)
== END 2019-04-01 18:00 | disposition home or self-care (01) ==
LOC: LAB 09:44
PROVIDERS: Family Provider Family Medicine; PCP Family Medicine; Referring Provider Internal Medicine Cardiovascular Disease; Visit Provider Internal Medicine Cardiovascular Disease
DX: R53.83 Other fatigue (principal); G47.10 Hypersomnia, unspecified; E78.5 Hyperlipidemia, unspecified; I48.92 Unspecified atrial flutter; Z79.01 Long term (current) 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; Z98.890 Other specified postprocedural states
CPT/HCPCS: 36415; 80061; 80076; 85610

== ENCOUNTER 2019-05-06 10:46 | Outpatient (RCR) | payer MEDICARE, BC, SELFPAY ==
[2019-02-28 10:53] VITALS: BMI 27.4
[2019-04-22 11:53] LABS: Prothrombin Time (Protime)PT. 36.8 SECONDS (11.7-14.9)
[2019-04-22 11:55] LABS: International Normalized Ratio 3.7
[2019-05-06 11:45] LABS: International Normalized Ratio 3.1; Prothrombin Time (Protime)PT. 32.1 SECONDS (11.7-14.9)
== END 2019-05-06 18:00 | disposition home or self-care (01) ==
LOC: LAB 10:46
PROVIDERS: Family Provider Family Medicine; PCP Family Medicine; Referring Provider Internal Medicine Cardiovascular Disease; Visit Provider Internal Medicine Cardiovascular Disease
DX: G47.10 Hypersomnia, unspecified (principal); R53.83 Other fatigue; E78.5 Hyperlipidemia, unspecified; I48.92 Unspecified atrial flutter; Z79.01 Long term (current) 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; Z98.890 Other specified postprocedural states
CPT/HCPCS: 36415; 85610

== ENCOUNTER 2019-06-03 10:06 | Outpatient (RCR) | payer MEDICARE, BC, SELFPAY ==
[2019-02-28 10:53] VITALS: BMI 27.4
[2019-06-03 11:22] LABS: International Normalized Ratio 2.7; Prothrombin Time (Protime)PT. 27.8 SECONDS (11.7-14.9)
== END 2019-06-20 18:00 | disposition home or self-care (01) ==
LOC: LAB 10:06
PROVIDERS: Family Provider Family Medicine; PCP Family Medicine; Referring Provider Internal Medicine Cardiovascular Disease; Visit Provider Internal Medicine Cardiovascular Disease
DX: R53.83 Other fatigue (principal); G47.10 Hypersomnia, unspecified; E78.5 Hyperlipidemia, unspecified; I48.92 Unspecified atrial flutter; Z79.01 Long term (current) 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; Z98.890 Other specified postprocedural states
CPT/HCPCS: 36415; 85610

== ENCOUNTER 2019-07-01 11:19 | Outpatient (RCR) | payer MEDICARE, BC, SELFPAY ==
[2019-02-28 10:53] VITALS: BMI 27.4
[2019-07-01 12:23] LABS: International Normalized Ratio 2.8; Prothrombin Time (Protime)PT. 28.9 SECONDS (11.7-14.9)
== END 2019-07-01 18:00 | disposition home or self-care (01) ==
LOC: LAB 11:19
PROVIDERS: Family Provider Family Medicine; PCP Family Medicine; Referring Provider Internal Medicine Cardiovascular Disease; Visit Provider Internal Medicine Cardiovascular Disease
DX: I48.92 Unspecified atrial flutter (principal); G47.10 Hypersomnia, unspecified; R53.83 Other fatigue; E78.5 Hyperlipidemia, unspecified; Z79.01 Long term (current) 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; Z98.890 Other specified postprocedural states
CPT/HCPCS: 36415; 85610

== ENCOUNTER → 2019-08-05 | Outpatient (CLI) | payer MEDICARE, BC, SELFPAY ==
[2019-07-04 10:18] VITALS: BMI 27.8
--- NOTE | 2019-08-05 12:59 | PFT ---
INTRODUCTION: The patient is a 78-year-old female that presents for pulmonary function studies secondary to a diagnosis of high risk medication use. Respiratory therapy reports good patient effort. Bronchodilators were used during testing. INTERPRETATION: Forced expiration spirometry demonstrates no evidence of a large airways obstructive ventilatory defect. There was no significant response to aerosolized bronchodilators. Spirograms are of good quality and plateau normally. Body plethysmography was performed and reveals lung volumes to be within normal limits. Diffusing capacity by single breath CO is reduced to 51% of predicted. IMPRESSION: Isolated reduction in diffusing capacity, which has remained stable since PFTs were completed in July 2018.
== END | disposition home or self-care (01) ==
LOC: PSN 07:43
PROVIDERS: PCP Family Medicine; Referring Provider Internal Medicine Cardiovascular Disease; Visit Provider Internal Medicine Cardiovascular Disease
DX: I48.92 Unspecified atrial flutter (principal); Z98.890 Other specified postprocedural states
CPT/HCPCS: 94060; 94726; 94729

== ENCOUNTER → 2019-08-07 10:45 | Outpatient (CLI) | payer MEDICARE, BC, SELFPAY ==
[2019-07-04 10:18] VITALS: BMI 27.8
--- NOTE | 2019-08-07 10:46 | ECHOD_ITS ---
Reason For Study: VALVE REPL Procedure This was a 2D Doppler, Color Flow transthoracic echocardiogram. Exam performed in department. Left Ventricle Mildly dilated left ventricle. The estimated ejection fraction is 55 %. Septal motion consistent with IVCD. There is borderline global hypokinesis of the left ventricle. Right Ventricle Mildly dilated right ventricle. Normal systolic function. Atria The left atrium is severely enlarged. The right atrium is mildly enlarged. Normal atrial septum. Mitral Valve Peak transmitral valve gradient 9 mmHg. Mean transmitral valve gradient 2 mmHg. Trivial mitral valve insufficiency. Stable appearing mechanical mitral valve apparatus. Tricuspid Valve Normal tricuspid valve. Mild (1+) tricuspid valve insufficiency. Right ventricular systolic pressure estimated to be 35 mmHg. Aortic Valve Peak aortic valve gradient 14 mmHg. Mean aortic valve gradient 8 mmHg. Trivial aortic valve insufficiency. Stable appearing bioprosthetic aortic valve apparatus. Pulmonic Valve Normal pulmonic valve. Great Vessels Normal aortic root. Normal arch. Normal inferior vena cava. Inferior vena cava collapse with sniff. Pericardium/Pleural No pericardial effusion. MMode/2D Measurements & Calculations LVIDd: 5.0 cm IVSd: 0.88 cm LVOT diam: 2.0 cm LVIDs: 3.5 cm LVPWd: 1.0 cm LVOT area: 3.2 cm2 RVDd: 3.8 cm FS: 29.5 % Ao root diam: 4.1 cm LAV(MOD-bp): 94.9 ml LVAd ap4: 37.5 cm2 LAV(MOD-bp) Indexed: 55.5 ml/m2 EDV(MOD-sp4): 142.7 ml LAV(MOD-sp2): 89.6 ml EDV(sp4-el): 148.5 ml LAV(MOD-sp4): 94.7 ml LVAs ap4: 21.9 cm2 ESV(MOD-sp4): 61.7 ml ESV(sp4-el): 62.8 ml EF(MOD-sp4): 56.8 % EF(sp4-el): 57.7 % SV(MOD-sp4): 81.0 ml SV(sp4-el): 85.7 ml LA A4 area: 27.3 cm2 LA dimension(2D): 4.1 cm RA A4 area: 18.1 cm2 Time Measurements MV dec time: 0.46 sec Doppler Measurements & Calculations MV E max iván: 134.9 cm/sec Lat Peak E' Iván: 10.2 cm/sec Med Peak E' Iván: 4.8 cm/sec MV A max iván: 47.6 cm/sec E/E' lat: 13.2 E/E' med: 28.2 MV E/A: 2.8 MV V2 max: 150.2 cm/sec Ao V2 max: 186.3 cm/sec LV V1 max: 103.6 cm/sec MV max P.0 mmHg Ao max P.9 mmHg LV V1 max P.3 mmHg MV V2 mean: 61.8 cm/sec Ao V2 mean: 132.1 cm/sec LV V1 mean P.7 mmHg MV mean P.9 mmHg Ao mean P.6 mmHg LV V1 mean: 78.7 cm/sec MV V2 VTI: 42.3 cm Ao V2 VTI: 45.8 cm LV V1 VTI: 24.8 cm MVA(VTI): 1.9 cm2 CHRISTINA(I,D): 1.7 cm2 CHRISTINA(V,D): 1.8 cm2 SV(LVOT): 78.8 ml TR max iván: 253.6 cm/sec MV P1/2t-pr_phl: 143.9 msec TR max P.9 mmHg Interpretation Summary Mildly dilated left ventricle. The estimated ejection fraction is 55 %. There is borderline global hypokinesis of the left ventricle. Mildly dilated right ventricle. The left atrium is severely enlarged. The right atrium is mildly enlarged. Stable appearing and normal functioning mechanical mitral valve apparatus. Mild (1+) tricuspid valve insufficiency. Right ventricular systolic pressure estimated to be 35 mmHg. Stable appearing and normal functioning bioprosthetic aortic valve apparatus. Trivial aortic valve insufficiency. Compared to echo report dated 08/18/2018, no appreciable changes noted. Ordering Physician: Reed Monet Referring Physician: FAN PANDEY Performed By: Estefani Shepherd, LUC, RVT
== END ==
PROVIDERS: PCP Family Medicine; Referring Provider Internal Medicine Cardiovascular Disease; Visit Provider Internal Medicine Cardiovascular Disease
DX: R06.09 Other forms of dyspnea (principal)
CPT/HCPCS: 93306

== ENCOUNTER 2019-08-12 12:09 | Outpatient (RCR) | payer MEDICARE, BC, SELFPAY ==
[2019-07-04 10:18] VITALS: BMI 27.8
--- NOTE | 2019-07-29 11:36 | RAD_ITS ---
STUDY: X-RAY CHEST REASON FOR EXAM: Female, 78 years old. Chest pain/pressure TECHNIQUE: PA and lateral views of the chest. COMPARISON: 12/20/2018 FINDINGS: There are interstitial changes of the lungs. There is no demonstrated pleural abnormality. Sternal cerclage wires and vascular clips are present from a prior sternotomy and coronary artery bypass graft procedure (CABG). Normal mediastinum and katie. Normal visualized pulmonary arteries. Normal visualized aortic arch and descending thoracic aorta. There are diffuse degenerative changes of the visualized thoracic spine. Normal visualized ribs, clavicles, and shoulders. There is no demonstrated abnormality of the visualized soft tissue structures of the upper abdomen. RAD/Chest PA and Lateral IMPRESSION: Chronic interstitial changes, no superimposed acute pulmonary process Electronically Signed: Esa Rangel MD at 19:29 EDT , Service support ,
[2019-07-29 12:25] LABS: International Normalized Ratio 2.4
[2019-07-29 13:03] LABS: T4 Free Direct 1.34 ng/dL (0.76-1.46); Thyroid Stim Hormone (TSH) 3.16 uIU/mL (0.358-3.74)
[2019-08-12 12:36] LABS: Prothrombin Time (Protime)PT. 37.5 SECONDS (11.7-14.9)
[2019-08-12 12:50] LABS: International Normalized Ratio 3.8
== END 2019-08-12 18:00 | disposition home or self-care (01) ==
LOC: LAB 12:09
PROVIDERS: Family Provider Family Medicine; PCP Family Medicine; Referring Provider Internal Medicine Cardiovascular Disease; Visit Provider Internal Medicine Cardiovascular Disease
DX: I48.92 Unspecified atrial flutter (principal); G47.10 Hypersomnia, unspecified; E78.5 Hyperlipidemia, unspecified; R53.83 Other fatigue; Z79.01 Long term (current) 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; Z98.890 Other specified postprocedural states
CPT/HCPCS: 36415; 71046; 84439; 84443; 85610

== ENCOUNTER 2019-09-16 10:13 | Outpatient (RCR) | payer MEDICARE, BC, SELFPAY ==
[2019-07-04 10:18] VITALS: BMI 27.8
[2019-08-26 12:09] LABS: International Normalized Ratio 3.2; Prothrombin Time (Protime)PT. 32.4 SECONDS (11.7-14.9)
[2019-09-16 11:42] LABS: Prothrombin Time (Protime)PT. 30.5 SECONDS (11.7-14.9)
[2019-09-16 12:43] LABS: AST(SGOT) 33 U/L (15-37); Alanine Aminotransfer ALT/SGPT 32 U/L (13-56); Albumin, Serum 3.4 g/dL (3.2-5.0); Alkaline Phosphatase 82 U/L (45-117); Bilirubin, Direct 0.15 mg/dL (0.00-0.30); Cholesterol 189 mg/dL (200); Globulin 3.4 g/dL (2.2-4.2); High Density Lipoprotein 68 mg/dL; Protein, Total 6.8 g/dL (6.4-8.2); Triglycerides 124 mg/dL; Very Low Density Lipoprotein 25 mg/dL (5-40)
== END 2019-09-16 18:00 | disposition home or self-care (01) ==
LOC: LAB 10:13
PROVIDERS: Family Provider Family Medicine; PCP Family Medicine; Referring Provider Internal Medicine Cardiovascular Disease; Visit Provider Internal Medicine Cardiovascular Disease
DX: I48.92 Unspecified atrial flutter (principal); G47.10 Hypersomnia, unspecified; E78.5 Hyperlipidemia, unspecified; R53.83 Other fatigue; Z79.01 Long term (current) 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; Z98.890 Other specified postprocedural states
CPT/HCPCS: 36415; 80061; 80076; 85610

== ENCOUNTER 2019-10-14 10:56 | Outpatient (RCR) | payer MEDICARE, BC, SELFPAY ==
[2019-07-04 10:18] VITALS: BMI 27.8
[2019-10-14 11:19] LABS: International Normalized Ratio 3.3; Prothrombin Time (Protime)PT. 33.5 SECONDS (11.7-14.9)
== END 2019-10-21 18:00 | disposition home or self-care (01) ==
LOC: LAB 10:56
PROVIDERS: Family Provider Family Medicine; PCP Family Medicine; Referring Provider Internal Medicine Cardiovascular Disease; Visit Provider Internal Medicine Cardiovascular Disease
DX: I48.92 Unspecified atrial flutter (principal); I35.1 Nonrheumatic aortic (valve) insufficiency; C47.1 Malignant neoplasm of peripheral nerves of upper limb, including shoulder; E78.5 Hyperlipidemia, unspecified; Z95.2 Presence of prosthetic heart valve; Z79.01 Long term (current) 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; Z98.890 Other specified postprocedural states
CPT/HCPCS: 36415; 85610

== ENCOUNTER → 2019-11-11 15:33 | Outpatient (CLI) | payer MEDICARE, BC, SELFPAY ==
[2019-10-24 13:22] VITALS: BMI 27.8
--- NOTE | 2019-11-11 15:34 | BI_ITS ---
MAMMOGRAPHY - BILATERAL SCREENING REASON FOR EXAM: Female, 78 years old. Routine annual screening examination. PERTINENT HISTORY: Aunt with breast cancer. TECHNIQUE: Digital bilateral breast edda (3D mammographic acquisition) in the CC and MLO projections. 2-D mediolateral oblique (MLO) and craniocaudad (CC) views of both breasts were obtained. CAD: Full Field Digital Mammography with Computer Added Detection was performed. COMPARISON: Comparison is made with prior study dated 11/02/2018 and 10/26/2017. FINDINGS: Breast Composition: There are scattered areas of fibroglandular density. There are no dominant masses or suspicious calcifications. Stable small benign appearing bilateral axillary lymph nodes. No other significant abnormalities are identified. There has been no significant change since the prior study. BI/SCREEN MAMM (CAD) W/EDDA BILAT IMPRESSION: Stable bilateral screening mammogram. Yearly follow-up mammogram recommended. (A) ASSESSMENT CATEGORY: BIRADS Category 2: Benign. A letter regarding these results will be sent to the patient by the facility within 30 days. Approximately 10% of breast cancers are not detected by mammography. A normal mammogram should not delay biopsy of a clinically suspicious abnormality. [id number] Electronically Signed: Walter Vickers, at 8:25 EDT , Service support ,
== END ==
PROVIDERS: PCP Family Medicine; Referring Provider Nurse Practitioner Women's Health; Visit Provider Nurse Practitioner Women's Health
DX: Z12.31 Encounter for screening mammogram for malignant neoplasm of breast (principal); Z79.01 Long term (current) 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; I48.92 Unspecified atrial flutter; I35.1 Nonrheumatic aortic (valve) insufficiency; C47.1 Malignant neoplasm of peripheral nerves of upper limb, including shoulder; E78.5 Hyperlipidemia, unspecified; Z95.2 Presence of prosthetic heart valve; Z98.890 Other specified postprocedural states
CPT/HCPCS: 36415; 77063; 77067; 85610

== ENCOUNTER 2019-11-18 09:49 | Outpatient (RCR) | payer MEDICARE, BC, SELFPAY ==
[2019-07-04 10:18] VITALS: BMI 27.8
[2019-10-24 13:22] VITALS: BMI 27.8
[2019-11-11 12:27] LABS: Prothrombin Time (Protime)PT. 38.5 SECONDS (11.7-14.9)
[2019-11-18 10:21] LABS: International Normalized Ratio 3.4; Prothrombin Time (Protime)PT. 34.1 SECONDS (11.7-14.9)
== END 2019-11-18 18:00 | disposition home or self-care (01) ==
LOC: LAB 09:49
PROVIDERS: Family Provider Family Medicine; PCP Family Medicine; Referring Provider Internal Medicine Cardiovascular Disease; Visit Provider Internal Medicine Cardiovascular Disease
DX: I48.92 Unspecified atrial flutter (principal); I35.1 Nonrheumatic aortic (valve) insufficiency; E78.5 Hyperlipidemia, unspecified; Z95.2 Presence of prosthetic heart valve; Z79.01 Long term (current) 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; Z98.890 Other specified postprocedural states
CPT/HCPCS: 36415; 85610

== ENCOUNTER 2019-12-16 11:56 | Outpatient (RCR) | payer MEDICARE, BC, SELFPAY ==
[2019-11-18 10:40] VITALS: BMI 27.8
[2019-12-02 12:37] LABS: International Normalized Ratio 2.7; Prothrombin Time (Protime)PT. 28.3 SECONDS (11.7-14.9)
[2019-12-16 12:55] LABS: International Normalized Ratio 3.2; Prothrombin Time (Protime)PT. 32.2 SECONDS (11.7-14.9)
== END 2019-12-16 18:00 | disposition home or self-care (01) ==
LOC: LAB 11:56
PROVIDERS: Family Provider Family Medicine; PCP Family Medicine; Referring Provider Specialist; Visit Provider Specialist
DX: I35.1 Nonrheumatic aortic (valve) insufficiency (principal); Z95.2 Presence of prosthetic heart valve; Z79.01 Long term (current) 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
CPT/HCPCS: 36415; 85610

== ENCOUNTER 2020-01-06 09:34 | Outpatient (RCR) | payer MEDICARE, BC, SELFPAY ==
[2019-11-18 10:40] VITALS: BMI 27.8
[2019-12-23 13:31] LABS: Prothrombin Time (Protime)PT. 35.8 SECONDS (11.7-14.9)
[2019-12-23 13:36] LABS: International Normalized Ratio 3.6
[2020-01-06 10:14] LABS: International Normalized Ratio 3.4; Prothrombin Time (Protime)PT. 34.3 SECONDS (11.7-14.9)
== END 2020-01-06 18:00 | disposition home or self-care (01) ==
LOC: LAB 09:34
PROVIDERS: Family Provider Family Medicine; PCP Family Medicine; Referring Provider Specialist; Visit Provider Specialist
DX: I35.1 Nonrheumatic aortic (valve) insufficiency (principal); Z79.01 Long term (current) 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; Z95.2 Presence of prosthetic heart valve
CPT/HCPCS: 36415; 85610

== ENCOUNTER 2020-02-10 11:11 | Outpatient (RCR) | payer MEDICARE, BC, SELFPAY ==
[2019-11-18 10:40] VITALS: BMI 27.8
[2020-01-27 11:41] LABS: International Normalized Ratio 2.6; Prothrombin Time (Protime)PT. 27.4 SECONDS (11.7-14.9)
[2020-02-10 11:47] LABS: Prothrombin Time (Protime)PT. 30.4 SECONDS (11.7-14.9)
== END 2020-02-10 18:00 | disposition home or self-care (01) ==
LOC: LAB 11:11
PROVIDERS: Family Provider Family Medicine; PCP Family Medicine; Referring Provider Specialist; Visit Provider Specialist
DX: I48.91 Unspecified atrial fibrillation (principal); Z79.01 Long term (current) 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; Z95.2 Presence of prosthetic heart valve
CPT/HCPCS: 36415; 85610

== ENCOUNTER → 2020-02-20 11:25 | Outpatient (CLI) | payer MEDICARE, BC, SELFPAY ==
[2020-02-20 10:32] VITALS: BMI 27.6
[2020-02-20 12:06] LABS: Absolute Lymphocyte Count 0.82 X10^3/uL (0.83-4.51); Absolute Neutrophil Count 3.8 X10^3/uL (2.0-7.7); Basophil# 0.08 X10^3/uL; Basophil% 1.4 % (0-1); Eosinophil# 0.29 X10^3/uL; Eosinophils% 5.1 % (0-5); Hematocrit 36.8 % (37-47); Hemoglobin 11.7 g/dL (12.0-15.0); Lymphocyte # 0.82 X10^3/ul (4.0); Lymphocyte % 14.3 % (19-41); Mean Corp Hgb Conc 31.8 g/dL (32-36); Mean Corpuscular Volume 103.7 fL (81-99); Mean Platelet Vol. 10.3 fl (6.2-12.0); Monocyte# 0.78 X10^3/uL; Monocyte% 13.6 % (0-10); NRBC Flagged by Analyzer 0 % (0-5); Neutrophil # 3.75 X10^3/uL (2.7-7.7); Neutrophil % 65.4 % (47-70); Platelet Count 240 K/mm3 (150-450); RBC Distribution Width CV 14.6 % (11.6-14.6); RBC Distribution Width SD 56.1 fl (35.1-43.9); Red Blood Count 3.55 M/mm3 (4.2-5.4); White Blood Count 5.7 K/mm3 (4.4-11.0)
[2020-02-20 12:40] LABS: Vitamin B12 390 pg/mL (211-911); Vitamin D,25 Hydroxy 47.6 ng/mL
== END ==
PROVIDERS: PCP Family Medicine; Referring Provider Nurse Practitioner Family; Visit Provider Nurse Practitioner Family
DX: R53.83 Other fatigue (principal); R06.09 Other forms of dyspnea; I48.92 Unspecified atrial flutter; Z95.2 Presence of prosthetic heart valve; Z79.01 Long term (current) 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; E55.9 Vitamin D deficiency, unspecified
CPT/HCPCS: 36415; 82306; 82607; 85025

== ENCOUNTER 2020-03-02 10:07 | Outpatient (RCR) | payer MEDICARE, BC, SELFPAY ==
[2020-02-20 10:32] VITALS: BMI 27.6
[2020-03-02 10:43] LABS: International Normalized Ratio 2.6; Prothrombin Time (Protime)PT. 27.6 SECONDS (11.7-14.9)
== END 2020-03-02 18:00 | disposition home or self-care (01) ==
LOC: LAB 10:07
PROVIDERS: Family Provider Family Medicine; PCP Family Medicine; Referring Provider Specialist; Visit Provider Specialist
DX: I48.92 Unspecified atrial flutter (principal); Z79.01 Long term (current) 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; Z95.2 Presence of prosthetic heart valve
CPT/HCPCS: 36415; 85610

== ENCOUNTER 2020-04-13 09:56 | Outpatient (RCR) | payer MEDICARE, BC, SELFPAY ==
[2020-02-20 10:32] VITALS: BMI 27.6
[2020-03-23 11:17] LABS: International Normalized Ratio 3.4; Prothrombin Time (Protime)PT. 34.3 SECONDS (11.7-14.9)
[2020-04-13 10:53] LABS: International Normalized Ratio 2.8
[2020-04-13 11:02] LABS: AST(SGOT) 42 U/L (15-37); Alanine Aminotransfer ALT/SGPT 49 U/L (13-56); Albumin, Serum 3.3 g/dL (3.2-5.0); Alkaline Phosphatase 104 U/L (45-117); Cholesterol 204 mg/dL (200); Globulin 3.5 g/dL (2.2-4.2); High Density Lipoprotein 69 mg/dL; Protein, Total 6.8 g/dL (6.4-8.2); Triglycerides 139 mg/dL; Very Low Density Lipoprotein 28 mg/dL (5-40)
== END 2020-04-13 18:00 | disposition home or self-care (01) ==
LOC: LAB 09:56
PROVIDERS: Internal Medicine Cardiovascular Disease; Family Provider Family Medicine; PCP Family Medicine; Referring Provider Specialist; Visit Provider Specialist
DX: I48.92 Unspecified atrial flutter (principal); Z79.01 Long term (current) 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; Z95.2 Presence of prosthetic heart valve; E78.00 Pure hypercholesterolemia, unspecified; E78.5 Hyperlipidemia, unspecified
CPT/HCPCS: 36415; 80061; 80076; 85610

== ENCOUNTER 2020-05-11 10:29 | Outpatient (RCR) | payer MEDICARE, BC, SELFPAY ==
[2020-02-20 10:32] VITALS: BMI 27.6
[2020-05-11 11:32] LABS: Prothrombin Time (Protime)PT. 30.8 SECONDS (11.7-14.9)
== END 2020-05-11 18:00 | disposition home or self-care (01) ==
LOC: LAB 10:29
PROVIDERS: Family Provider Family Medicine; PCP Family Medicine; Referring Provider Specialist; Visit Provider Specialist
DX: I48.92 Unspecified atrial flutter (principal); Z79.01 Long term (current) 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; Z95.2 Presence of prosthetic heart valve
CPT/HCPCS: 36415; 85610

== ENCOUNTER 2020-06-08 09:51 | Outpatient (RCR) | payer MEDICARE, BC, SELFPAY ==
[2020-02-20 10:32] VITALS: BMI 27.6
[2020-06-08 10:26] LABS: International Normalized Ratio 3.1
== END 2020-06-08 18:00 | disposition home or self-care (01) ==
LOC: LAB 09:51
PROVIDERS: Family Provider Family Medicine; PCP Family Medicine; Referring Provider Specialist; Visit Provider Specialist
DX: I48.92 Unspecified atrial flutter (principal); Z95.2 Presence of prosthetic heart valve; Z79.01 Long term (current) 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
CPT/HCPCS: 36415; 85610

== ENCOUNTER 2020-07-06 11:58 | Outpatient (RCR) | payer MEDICARE, BC, SELFPAY ==
[2020-02-20 10:32] VITALS: BMI 27.6
[2020-07-06 13:36] LABS: International Normalized Ratio 3.6; Prothrombin Time (Protime)PT. 34.7 SECONDS (11.7-14.9)
== END 2020-07-06 18:00 | disposition home or self-care (01) ==
LOC: LAB 11:58
PROVIDERS: PCP Family Medicine; Referring Provider Specialist; Visit Provider Specialist
DX: I48.92 Unspecified atrial flutter (principal); Z95.2 Presence of prosthetic heart valve; Z79.01 Long term (current) 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
CPT/HCPCS: 36415; 85610

== ENCOUNTER → 2020-07-27 12:51 | Outpatient (CLI) | payer MEDICARE, BC, SELFPAY ==
[2020-07-21 10:28] VITALS: BMI 27.6
--- NOTE | 2020-07-27 12:52 | ECHOD_ITS ---
Version 2 Reason For Study: Valve replacement Procedure This was a 2D Doppler, Color Flow transthoracic echocardiogram. The study was technically difficult. Exam performed in department. Left Ventricle Normal LV size. Left ventricular systolic function is normal. The estimated ejection fraction is 55 %. Post operative septal motion. No regional wall motion abnormalities noted. Right Ventricle Normal RV size. Normal systolic function. Atria The left atrium is mildly enlarged. Normal right atrium. No doppler evidence for ASD. Mitral Valve Stable appearing mechanical mitral valve apparatus. Trivial transvalvular insufficiency of the mitral valve. Tricuspid Valve Normal tricuspid valve. Mild tricuspid valve insufficiency. Right ventricular systolic pressure estimated to be 28 mmHg. Aortic Valve Stable appearing mechanical aortic valve apparatus. Trivial transvalvular insufficiency of the aortic valve. Pulmonic Valve The pulmonic valve is not well visualized. Mild (1+) pulmonic valve insufficiency. Great Vessels Normal sized aortic root. Pericardium/Pleural No pericardial effusion. MMode/2D Measurements & Calculations LVIDd: 4.8 cm IVSd: 1.3 cm LVOT diam: 2.0 cm LVIDs: 3.5 cm LVPWd: 1.1 cm LVOT area: 3.2 cm2 RVDd: 3.8 cm FS: 26.8 % Ao root diam: 3.8 cm LAV(MOD-bp): 72.4 ml LVAd ap4: 29.1 cm2 LAV(MOD-bp) Indexed: 41.1 ml/m2 LVLd ap4: 7.3 cm LAV(MOD-sp2): 68.0 ml EDV(MOD-sp4): 96.8 ml LAV(MOD-sp4): 77.6 ml EDV(sp4-el): 98.7 ml LVAs ap4: 18.3 cm2 LVLs ap4: 6.3 cm ESV(MOD-sp4): 44.3 ml ESV(sp4-el): 44.6 ml EF(MOD-sp4): 54.3 % EF(sp4-el): 54.8 % SV(MOD-sp4): 52.5 ml SV(sp4-el): 54.1 ml LA A4 area: 24.0 cm2 LA dimension(2D): 4.5 cm RA A4 area: 14.9 cm2 Time Measurements MV dec time: 0.29 sec Doppler Measurements & Calculations MV E max iván: 108.0 cm/sec Lat Peak E' Iván: 11.5 cm/sec Med Peak E' Iván: 3.6 cm/sec MV A max iván: 61.1 cm/sec E/E' lat: 9.4 E/E' med: 29.9 MV E/A: 1.8 MV V2 max: 115.5 cm/sec MV P1/2t max iván: 121.3 cm/sec Ao V2 max: 214.8 cm/sec MV max P.4 mmHg MV P1/2t: 86.8 msec Ao max P.4 mmHg MV V2 mean: 63.7 cm/sec Ao V2 mean: 147.6 cm/sec MV mean P.8 mmHg MV dec slope: 409.3 cm/sec2 Ao mean P.6 mmHg MV V2 VTI: 36.5 cm MVA(P1/2t): 2.5 cm2 Ao V2 VTI: 44.9 cm MVA(VTI): 3.1 cm2 CHRISTINA(I,D): 2.5 cm2 CHRISTINA(V,D): 2.2 cm2 LV V1 max: 143.3 cm/sec SV(LVOT): 112.5 ml PA V2 max: 101.1 cm/sec LV V1 max P.2 mmHg LV V1 mean P.2 mmHg LV V1 mean: 109.3 cm/sec LV V1 VTI: 34.8 cm PI end-d iván: 120.4 cm/sec TR max iván: 248.7 cm/sec TR max P.7 mmHg ECHO/Echo Complete Interpretation Summary The study was technically difficult. Left ventricular systolic function is normal. The estimated ejection fraction is 55 %. Post operative septal motion. The left atrium is mildly enlarged. Stable appearing mechanical mitral valve apparatus. Trivial transvalvular insufficiency of the mitral valve. Mild tricuspid valve insufficiency. Stable appearing mechanical aortic valve apparatus. Trivial transvalvular insufficiency of the aortic valve. Mild (1+) pulmonic valve insufficiency. Right ventricular systolic pressure estimated to be 28 mmHg. Transmitral diastolic flow velocities suggest diastolic dysfunction (pseudonorm al pattern). Ordering Physician: Newton Bush Referring Physician: Newton Freedman Performed By: Bella Bush, LUC, RVT
== END ==
PROVIDERS: PCP Family Medicine; Referring Provider Nurse Practitioner Family; Visit Provider Nurse Practitioner Family
DX: I48.92 Unspecified atrial flutter (principal); Z95.2 Presence of prosthetic heart valve; E78.5 Hyperlipidemia, unspecified; Z79.01 Long term (current) 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
CPT/HCPCS: 93306

== ENCOUNTER → 2020-08-17 10:47 | Outpatient (CLI) | payer MEDICARE, BC, SELFPAY ==
[2020-07-21 10:28] VITALS: BMI 27.6
[2020-08-17 12:30] LABS: AST(SGOT) 45 U/L (15-37); Alanine Aminotransfer ALT/SGPT 59 U/L (13-56); Albumin, Serum 3.4 g/dL (3.2-5.0); Alkaline Phosphatase 115 U/L (45-117); Bilirubin, Direct 0.16 mg/dL (0.00-0.30); Cholesterol 187 mg/dL (200); Globulin 3.5 g/dL (2.2-4.2); High Density Lipoprotein 54 mg/dL; Protein, Total 6.9 g/dL (6.4-8.2); Triglycerides 160 mg/dL; Very Low Density Lipoprotein 32 mg/dL (5-40)
== END ==
PROVIDERS: PCP Family Medicine; Visit Provider Internal Medicine Cardiovascular Disease
DX: E78.5 Hyperlipidemia, unspecified (principal); E78.00 Pure hypercholesterolemia, unspecified
CPT/HCPCS: 36415; 80061; 80076

== ENCOUNTER 2020-08-18 11:13 | Outpatient (RCR) | payer MEDICARE, BC, SELFPAY ==
[2020-02-20 10:32] VITALS: BMI 27.6
[2020-07-21 10:28] VITALS: BMI 27.6
[2020-07-21 12:01] LABS: Prothrombin Time (Protime)PT. 40.8 SECONDS (11.7-14.9)
[2020-07-21 12:05] LABS: International Normalized Ratio 4.3
[2020-07-28 13:56] LABS: International Normalized Ratio 3.1; Prothrombin Time (Protime)PT. 30.8 SECONDS (11.7-14.9)
[2020-08-18 12:51] LABS: International Normalized Ratio 3.2; Prothrombin Time (Protime)PT. 32.2 SECONDS (11.7-14.9)
== END 2020-08-18 18:00 | disposition home or self-care (01) ==
LOC: LAB 11:13
PROVIDERS: PCP Family Medicine; Referring Provider Specialist; Visit Provider Specialist
DX: I48.92 Unspecified atrial flutter (principal); Z95.2 Presence of prosthetic heart valve; Z79.01 Long term (current) 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
CPT/HCPCS: 36415; 85610

== ENCOUNTER 2020-09-11 09:15 | Outpatient (RCR) | payer MEDICARE, BC, SELFPAY ==
[2020-07-21 10:28] VITALS: BMI 27.6
[2020-08-21 11:30] LABS: International Normalized Ratio 2.5; Prothrombin Time (Protime)PT. 26.2 SECONDS (11.7-14.9)
[2020-08-28 11:34] LABS: International Normalized Ratio 2.5; Prothrombin Time (Protime)PT. 26.1 SECONDS (11.7-14.9)
[2020-09-11 09:56] LABS: Prothrombin Time (Protime)PT. 30.4 SECONDS (11.7-14.9)
== END 2020-09-11 18:00 | disposition home or self-care (01) ==
LOC: LAB 09:15
PROVIDERS: PCP Family Medicine; Referring Provider Specialist; Visit Provider Specialist
DX: I48.92 Unspecified atrial flutter (principal); Z95.2 Presence of prosthetic heart valve; Z79.01 Long term (current) 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
CPT/HCPCS: 36415; 85610

== ENCOUNTER 2020-10-20 10:49 | Outpatient (RCR) | payer MEDICARE, BC, SELFPAY ==
[2020-07-21 10:28] VITALS: BMI 27.6
[2020-10-02 10:20] LABS: International Normalized Ratio 1.8; Prothrombin Time (Protime)PT. 20.3 SECONDS (11.7-14.9)
[2020-10-05 12:36] LABS: International Normalized Ratio 2.1; Prothrombin Time (Protime)PT. 22.7 SECONDS (11.7-14.9)
[2020-10-09 11:42] LABS: International Normalized Ratio 2.6; Prothrombin Time (Protime)PT. 26.7 SECONDS (11.7-14.9)
[2020-10-20 12:40] LABS: International Normalized Ratio 2.6; Prothrombin Time (Protime)PT. 27.2 SECONDS (11.7-14.9)
== END 2020-10-20 18:00 | disposition home or self-care (01) ==
LOC: LAB 10:49
PROVIDERS: PCP Family Medicine; Referring Provider Specialist; Visit Provider Specialist
DX: I48.92 Unspecified atrial flutter (principal); Z95.2 Presence of prosthetic heart valve; Z79.01 Long term (current) 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
CPT/HCPCS: 36415; 85610

== ENCOUNTER 2020-11-09 12:05 | Outpatient (RCR) | payer MEDICARE, BC, SELFPAY ==
[2020-10-20 23:23] VITALS: BMI 27.6
[2020-11-02 12:05] LABS: Absolute Lymphocyte Count 0.83 X10^3/uL (0.83-4.51); Absolute Neutrophil Count 4.6 X10^3/uL (2.0-7.7); Basophil# 0.09 X10^3/uL; Basophil% 1.3 % (0-1); Eosinophils% 5.9 % (0-5); Hematocrit 38.9 % (37-47); Hemoglobin 12.2 g/dL (12.0-15.0); Lymphocyte # 0.83 X10^3/ul (0.83-4.51); Lymphocyte % 12.2 % (19-41); Mean Corp Hgb Conc 31.4 g/dL (32-36); Mean Corpuscular Hgb 31.8 pg (27.0-32.0); Mean Corpuscular Volume 101.3 fL (81-99); Mean Platelet Vol. 9.6 fl (6.2-12.0); Monocyte# 0.81 X10^3/uL; Monocyte% 11.9 % (0-10); NRBC Flagged by Analyzer 0 % (0-5); Neutrophil # 4.62 X10^3/uL (2.7-7.7); Neutrophil % 68.1 % (47-70); Platelet Count 261 K/mm3 (150-450); RBC Distribution Width CV 15.2 % (11.6-14.6); RBC Distribution Width SD 56.9 fl (35.1-43.9); Red Blood Count 3.84 M/mm3 (4.2-5.4); White Blood Count 6.8 K/mm3 (4.4-11.0)
[2020-11-02 12:12] LABS: International Normalized Ratio 3.3
[2020-11-02 12:33] LABS: BNP,B-Type NATRIURETIC PEPTIDE 153.6 pg/mL (0-100)
[2020-11-02 12:50] LABS: Anion Gap 6 (5-15); BUN 38 mg/dL (7-18); BUN/Creat Ratio 21.8 RATIO (10-20); Chloride 111 mmol/L (98-107); Creatinine, Serum 1.74 mg/dL (0.55-1.02); EST Glomerular Filtration Rate 30 mL/min (>60); Est Glom Filt Rate - Afr Amer 36 mL/min (>60); Free T3 1.8 pg/mL (2.18-3.98); Glucose 72 mg/dL (74-106); Magnesium 2.3 mg/dL (1.6-2.6); Potassium 3.9 mmol/L (3.5-5.1); Sodium Level 143 mmol/L (136-145); T4 Free Direct 1.31 ng/dL (0.76-1.46); Thyroid Stim Hormone (TSH) 3.94 uIU/mL (0.358-3.74)
[2020-11-09 13:13] LABS: International Normalized Ratio 2.5; Prothrombin Time (Protime)PT. 26.5 SECONDS (11.7-14.9)
== END 2020-11-09 18:00 | disposition home or self-care (01) ==
LOC: LAB 12:05
PROVIDERS: Physician Assistant Medical; PCP Family Medicine; Referring Provider Specialist; Visit Provider Specialist
DX: I48.92 Unspecified atrial flutter (principal); E78.5 Hyperlipidemia, unspecified; R06.00 Dyspnea, unspecified; Z95.2 Presence of prosthetic heart valve; Z79.01 Long term (current) 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
CPT/HCPCS: 36415; 80048; 83735; 83880; 84439; 84443; 84481; 85025; 85610

== ENCOUNTER 2020-11-13 10:14 | Day surgery (SDC) | payer MEDICARE, BC, SELFPAY ==
[2020-11-12 08:01] VITALS: BMI 27.4
--- NOTE | 2020-11-12 18:34 | HP.PCM_ITS ---
History and Physical Date of Admission: 11/13/20 [facility] [address] [place] [address] [phone] OFFICE VISITDate of Service: 11/05/20 MR#:[id number]: DONNA NARANJO IRep #[id number] Provider: AB Fowler RoofAge/Sex: 79/F [facility] HPI History of Present Illness Surgical H&P: Yes Details: Mrs. 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 She had no associated bypass surgeries. She has no previous coronary disease or stenting. In addition she has had previously known mild aortic insufficiency, and occasional PVCs. Patient was found to have significant 3-4+ aortic insufficiency and underwent successful bioprosthetic aortic valvular replacement by Dr. Nunez at [facility] on 01/21/15. Her coronary arteries were normal and did not require bypass surgery. This was complicated by a left pleural effusion which required percutaneous drainage several days after discharge. This was also done by Dr. Nunez at [facility]. Patient is now here for follow-up. She underwent successful DC cardioversion on 07/10/15 and amiodarone assisted cardioversion on 12/28/2018. Patient contacted our office on 11/02/2020 with concerns that her heart was racing. She underwent ECG that showed atrial fibrillation rate of 76 bpm. She denies chest, arm, jaw, or neck discomfort. Her exercise tolerance is stable. She states shortness of breath with activity. She denies symptoms of palpitations, lightheadedness, dizziness, near syncope, or syncopal episodes. She denies claudication issues. She continues with bilateral lower extremity edema in her ankles. She feels this to be worse since last office. She denies orthopnea, PND, cough, blood in urine, blood in stool, epistaxis, or myalgia. She state feeling fatigued, which is unchanged from previous. 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 Medications aspirin 81 mg PO DAILY@0800 08/12/14 [History Confirmed 11/05/20] acetaminophen 500 mg PO Q6H PRN PRN 05/25/16 [History Confirmed 11/05/20] ascorbic acid (vitamin C) 1,000 mg tablet 1 g PO DAILY tab 07/26/18 [History Confirmed 11/05/20] cholecalciferol (vitamin D3) 25 mcg (1,000 unit) tablet 1,000 unit PO BID tab 07/26/18 [History Confirmed 11/05/20] Lasix 20 mg tablet 20 mg PO .COMPLEX #90 tab NS 04/15/20 [Rx Confirmed 11/05/20] amiodarone 200 mg tablet 200 mg PO DAILY #90 tab 04/15/20 [Rx Confirmed 11/05/20] metoprolol succinate 25 mg tablet,extended release 24 hr 25 mg PO DAILY #90 tab 04/15/20 [Rx Confirmed 11/05/20] simvastatin 20 mg tablet 20 mg PO QPM #90 tab 04/15/20 [Rx Confirmed 11/05/20] warfarin 1 mg tablet 1 mg PO .COMPLEX #135 tab 04/22/20 [Rx Confirmed 11/05/20] oxyquinoline 0.025 %-sodium lauryl sulfate 0.01 % vaginal gel 0.025 ea VAGINAL Q2W g 11/02/20 [History Confirmed 11/05/20] PFSH Medical History Atrial flutter, paroxysmal Hyperlipidemia 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 Migraines Nonrheumatic aortic valve insufficiency Psoriasis Rheumatic mitral insufficiency Shingles Surgical History H/O aortic valve replacement (01/20/15) H/O mitral valve replacement (07/12/00) History of cardioversion (12/28/18) History of right and left heart catheterization (12/26/14) History of thoracentesis (02/01/15) Hx of cholecystectomy Right Tibial ORIF Social History Smoking Status: Never smoker alcohol intake: never substance use type: does not use caffeine: Yes what type of physical activity do you participate in: none seatbelt use: sometimes do you feel safe at home: Yes additional social history: - Joey Patient and retired ROS Const Const: Positive for fatigue; Negative for weakness, body ache, fever(s) or chills ENT ENT: Negative for dizziness or Nosebleed/epistaxis Cardio Chest Pain: No Palpitations: No Edema: None Muscle aches with walking: None Resp Respiratory: Positive for SOB with activity; Negative for SOB at rest, SOB orthopnea\SOB lying down, Cough or paroxysmal nocturnal dyspnea GI GI: Negative nausea, vomiting blood/hematemesis, bright, red blood in stools or black,tarry stools : Negative for hematuria or frequent nighttime urination/ nocturia Musc Musc: Negative for muscle aches/ myalgia Skin Skin: Negative non-healing lesions or rash Neuro Neuro: Negative for dizziness, lightheadedness, near syncope, syncope, orthostatic symptoms or weakness Endo Endo: Positive for fatigue Allergy Allergy/Immunology: Negative for rash Cardiology Exam Const Appearance: cooperative, healthy appearing, comfortable and no acute distress Nutritional Appearance: average body habitus and well nourished Orientation: alert, awake and oriented x3 Head Head: normal to inspection Ears: hearing grossly normal bilaterally Nose: external nose normal Face and Sinus: face symmetric Mouth: oral mucosae normal Eyes General: appearance normal, both eyes and all related structures Eyelids: eyelids normal EOM: EOM intact bilaterally Neck Neck: normal visual inspection and no JVD Carotids: normal carotid upstroke Chest Chest inspection: normal inspection of the chest, symmetric chest movement and normal respiratory effort; Negative cough Auscultation: Bilateral: Clear to Auscultation Cardio Rate: regular rate Rhythm: irregular rhythm Heart sounds: S1 normal, S2 normal and crisp prosthetic S1; Negative rub, gallop or murmur GI GI: normal to inspection Neuro General: patient alert, patient awake, patient oriented x3 and CN's II-XI intact bilaterally Skin Skin: no rashes or lesions noted Extremities Pulses: Normal: Right Posterior Tibial Pulse, Left Posterior Tibial Pulse, Right Radial Pulse and Left Radial Pulse Lower Extremity Edema: None: Bilateral Psych Psychological: normal affect Assessment and Plan Assessment and Plan (1) Atrial flutter, paroxysmal: Status: Chronic Plan: She appears to be in an irregular rhythm on exam. Her last ECG on 11/02/2020 showed atrial fibrillation. She has been consistently anticoagulated greater than INR of 2. She will continue to have her INR checked on a weekly basis. She will continue current medical therapy which includes amiodarone for rate and rhythm control, amd Toprol for rate control, and warfarin for CVA protection. She will proceed with cardioversion. (2) H/O mitral valve replacement: Status: Chronic Comment: [address] [place] Prosthetic Valve 07/12/2000 @ [facility] Plan: Her most recent echocardiogram from 07/27/2020 showed ejection unction of 55% and stable appearing mechanical mitral valve apparatus with trivial transvalvular insufficiency of the mitral valve. This remained stable on exam. She will continue current medical therapy and we will continue to monitor. (3) H/O aortic valve replacement: Status: Chronic Comment: 23 On-X Aortic Valve @ [place] 01/20/15 Plan: Her echocardiogram on 07/27/2020 showed ejection unction of 55% and stable appearing mechanical aortic valve apparatus with trivial transvalvular insufficiency of the aortic valve. This too appears stable. She will continue current medical therapy and we will continue to monitor. COVID (Procedure Consent) Procedure Criteria Procedure Criteria: Yes Elective The surgeon/proceduralist and patient have discussed in detail the risk of exposure to and/or potential harm posed by the COVID-19 virus with having a surgery/procedure at this time versus the risk of delaying the surgery/procedure. It is not possible to know either the risk of delaying the surgery or procedure or chance of getting an infection with perfect accuracy, but a joint decision was made between the patient and the surgeon/proceduralist to proceed at this time with the scheduled surgery/procedure as indicated on the consent form. Coding Level of Care Code Off vis,est,level 3 Diagnoses Atrial flutter, paroxysmal I48.92 H/O mitral valve replacement Z95.2 H/O aortic valve replacement Z95.2 Coding Level of Care Code Off vis,est,level 3 Diagnoses Atrial flutter, paroxysmal I48.92 H/O mitral valve replacement Z95.2 H/O aortic valve replacement Z95.2 Supplemental Info Supplemental Information Echocardiogram from 07/27/2020: Interpretation Summary The study was technically difficult. Left ventricular systolic function is normal. The estimated ejection fraction is 55 %. Post operative septal motion. The left atrium is mildly enlarged. Stable appearing mechanical mitral valve apparatus. Trivial transvalvular insufficiency of the mitral valve. Mild tricuspid valve insufficiency. Stable appearing mechanical aortic valve apparatus. Trivial transvalvular insufficiency of the aortic valve. Mild (1+) pulmonic valve insufficiency. Right ventricular systolic pressure estimated to be 28 mmHg. Transmitral diastolic flow velocities suggest diastolic dysfunction (pseudonormal pattern). Heart catheterization from 12/26/2014: CONCLUSIONS: 1. Angiographically normal coronary arteries. 2. Normal pulmonary pressures. 3. Probably 3 to 4+ centrally directed aortic insufficiency. 4. Normal LV function by echocardiogram and indirect assessment of the ascending aortogram. 5. Normal pulmonary capillary wedge pressure. 6. Normal functioning prosthetic [place] mitral valve by both fluoroscopic ev aluation as well as transesophageal echocardiogram gradient assessment. RECOMMENDATIONS: At this point, the patient appears to have symptomatic aortic insufficiency with exertion. Her mitral valve repaired 14 years ago appears to be functioning normally. She has no concomitant coronary artery disease which requires bypassing at this time and her pulmonary pressures are normal. At this point, I believe the patient requires aortic valve replacement either by redo surgical sternotomy or percutaneous TAVR placement. I am unsure whether she is a candidate for this given her previous prosthetic mitral valve, however. Nonetheless, her insurance is somewhat limiting as to where she can go, and the 3 institutions which included on the sheet were [facility], or [facility] do not do TAVR procedures at this time. For that reason, I recommend that she be referred to Dr. Jaycob Nunez to evaluate her candidacy for redo sternotomy and aortic valve replacement to assist with her aortic insufficiency. In the meantime, she will resume her Coumadin and Lovenox therapy this evening to protect her prosthetic mitral valve, and she will continue Lovenox therapy for the next several days with concomitant Coumadin therapy to achieve an INR above 2.5. She will return on Monday for an INR check of 2.5. The sheaths were removed in the laborer tin can and hemostasis obtained. The patient tolerated the procedure well. There were no complications. Labs: LDL Cholesterol 101 mg/dL (0-130) HDL Cholesterol 54 mg/dL (40-) Triglycerides 160 mg/dL (-199) VLDL Cholesterol 32 mg/dL (5-40) Diagnostics: Electrocardiogram Echocardiogram Transesophageal Echocardiogram Stress Echocardiogram Cardiac Catheterization Chest X-Ray Pulmonary: Pulmonary Function Test 11/05/20 [id number]<Electronically signed by Newton Bush NP, NP-C>Date Newton Bush NP [facility]-C Cosigner Signature:Date (if applicable) CC: Dr. Newton Freedman MD ~ Assessment & Plan Addt'l Comments I have re-examined the patient. There are no clinical changes since date of exam.
[2020-11-13 10:25] LABS: INR Fingerstick 3.5; Prothrombin Time Fingerstick 38.1 SEC (11.9-14.4)
--- NOTE | 2020-11-13 12:23 | CARDIOVERS ---
Cardioversion Cardioversion: Date: 11-13-2020 Procedure: Synchronized Biphasic DC Cardioversion Indications: Atrial fibrillation Consent: Per the Patient Anesthesia: per Dr. Butterfield of pulmonology and critical care medicine with propofol 40 mg IV push total Procedure: Synchronized Biphasic DC Cardioversion: 200 J x 1: Result: Sinus rhythm/sinus bradycardia Complications: no apparent complications This note was generated with [employer] software. It may contain incorrect words, spelling, and punctuation that were not noted in checking the note before signing.
--- NOTE | 2020-11-13 13:41 | PRO.PCM_ITS ---
Procedure Report Date of Procedure: 11/13/20 CONSCIOUS SEDATION REPORT DATE OF SERVICE: November 13, 2020 BRIEF HISTORY OF PRESENT ILLNESS: The patient is a 79-year-old female who presented to [facility] for an elective outpatient cardioversion due to underlying atrial fibrillation. The patient did undergo a prior cardioversion in December 2018, during which time, she required 40 mg of propofol to achieve an appropriate level of sedation. Her last surface echocardiogram revealed an ejection fraction of approximately 55%. The patient is systemically anticoagulated on Coumadin with an INR of 3.5 today. She denies any prior anesthetic complications. PHYSICAL EXAMINATION: VITAL SIGNS: Reviewed and were acceptable. GENERAL: The patient is a female, in no apparent distress, speaking in full sentences. HEENT: Normocephalic, atraumatic. Mucous membranes are moist and pink. Good mouth opening noted. Trachea is midline. Good neck mobility. CHEST: S1, S2 irregularly irregular. No murmurs, rubs or gallops were noted. LUNGS: Clear to auscultation bilaterally without appreciable wheezes, rales or rhonchi. ABDOMEN: Soft, nontender, nondistended. Positive bowel sounds. EXTREMITIES: There is no clubbing, cyanosis or edema. ASA Class: II DESCRIPTION OF PROCEDURE: After confirmation of informed consent, the patient's anesthesia plan was reviewed in detail. Propofol was chosen. Risks and benefits were reviewed and the patient agreed to proceed. At 1205, the patient was given 40 mg of p ropofol. The patient achieved an appropriate level of sedation and was given a 200 joule synchronized cardioversion by Dr. Martines at the bedside. This was successful in achieving normal sinus rhythm. The patient was monitored until 1216, at which time she reached her baseline mental status and function. The patient tolerated the procedure well. COMPLICATIONS: None ESTIMATED BLOOD LOSS: None RECOMMENDATIONS: Okay to recover in usual fashion. Procedures Pulmonary CF Procedures Pulmonary: [id number] Con Sedation
== END 2020-11-13 13:10 | disposition home or self-care (01) ==
LOC: CLSP 10:15
PROVIDERS: PCP Family Medicine; Visit Provider Internal Medicine Cardiovascular Disease
DX: I48.92 Unspecified atrial flutter (principal); I35.1 Nonrheumatic aortic (valve) insufficiency; I10 Essential (primary) hypertension; E78.00 Pure hypercholesterolemia, unspecified; Z95.2 Presence of prosthetic heart valve; Z79.01 Long term (current) 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; Z79.82 Long term (current) use of aspirin; Z79.899 Other long term (current) drug therapy
CPT/HCPCS: 36416; 85610; 92960; 93005; J7040

== ENCOUNTER → 2020-11-18 10:37 | Outpatient (CLI) | payer MEDICARE, BC, SELFPAY ==
--- NOTE | 2020-11-18 10:38 | BI_ITS ---
MAMMOGRAPHY - BILATERAL SCREENING REASON FOR EXAM: Female, 80 years old. Routine annual screening examination. PERTINENT HISTORY: Non-contributory. TECHNIQUE: Digital bilateral breast edda (3D mammographic acquisition) in the CC and MLO projections. 2-D mediolateral oblique (MLO) and craniocaudad (CC) views of both breasts were obtained. CAD: Full Field Digital Mammography with Computer Added Detection was performed. COMPARISON: Comparison is made with prior study dated 11/11/2019 11/02/2018. FINDINGS: Breast Composition: There are scattered areas of fibroglandular density. There are no dominant masses or suspicious calcifications. Stable small benign appearing bilateral axillary lymph nodes. No other significant abnormalities are identified. There has been no significant change since the prior study. BI/SCRN MAMM (CAD)W/EDDA BILAT IMPRESSION: Stable bilateral screening mammogram. Yearly follow-up mammogram recommended. (A) ASSESSMENT CATEGORY: BIRADS Category 2: Benign. A letter regarding these results will be sent to the patient by the facility within 30 days. Approximately 10% of breast cancers are not detected by mammography. A normal mammogram should not delay biopsy of a clinically suspicious abnormality. [id number] Electronically Signed: Walter Vickers MD at 12:02 EDT , Service support ,
== END ==
PROVIDERS: PCP Family Medicine; Referring Provider Nurse Practitioner Women's Health; Visit Provider Nurse Practitioner Women's Health
DX: Z12.31 Encounter for screening mammogram for malignant neoplasm of breast (principal)
CPT/HCPCS: 77063; 77067

== ENCOUNTER 2020-12-18 11:19 | Outpatient (RCR) | payer MEDICARE, BC, SELFPAY ==
[2020-11-19 20:44] VITALS: BMI 27.6
[2020-11-20 10:51] LABS: International Normalized Ratio 3.5; Prothrombin Time (Protime)PT. 34.5 SECONDS (11.7-14.9)
[2020-12-04 09:29] LABS: International Normalized Ratio 3.6; Prothrombin Time (Protime)PT. 34.9 SECONDS (11.7-14.9)
[2020-12-18 12:18] LABS: International Normalized Ratio 3.9
== END 2020-12-20 19:47 | disposition home or self-care (01) ==
LOC: LAB 11:19
PROVIDERS: PCP Family Medicine; Referring Provider Specialist; Visit Provider Specialist
DX: I48.92 Unspecified atrial flutter (principal); Z95.2 Presence of prosthetic heart valve; Z79.01 Long term (current) 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
CPT/HCPCS: 36415; 85610

== ENCOUNTER → 2020-12-21 11:20 | Outpatient (CLI) | payer MEDICARE, BC, SELFPAY ==
--- NOTE | 2020-12-21 11:26 | RAD_ITS ---
STUDY: X-RAY CHEST REASON FOR EXAM: Female, 80 years old. amiodarone therapy TECHNIQUE: PA and lateral views of the chest. COMPARISON: 07/29/2019. FINDINGS: Midline sternotomy wires seen. The lungs are normally expanded with mild interstitial prominence and minimal atelectasis involving the bilateral mid lower lung shaikh, stable in the interval. Remainder of the lung parenchyma is clear. There is no demonstrated pleural abnormality. Normal size heart. Normal mediastinum and katie. Normal visualized pulmonary arteries. Normal visualized aortic arch and descending thoracic aorta. Normal visualized thoracic spine. Normal visualized ribs, clavicles, and shoulders. There is no demonstrated abnormality of the visualized soft tissue structures of the upper abdomen. RAD/Chest PA and Lateral IMPRESSION: Chronic interstitial changes and minimal mid lower lung field atelectasis, stable study in the interval. No acute cardiopulmonary disease. Electronically Signed: Vanessa Wilson MD at 0:15 EDT , Service support ,
== END ==
PROVIDERS: Referring Provider Internal Medicine Cardiovascular Disease; Visit Provider Internal Medicine Cardiovascular Disease
DX: R53.83 Other fatigue (principal); E78.5 Hyperlipidemia, unspecified; I48.92 Unspecified atrial flutter; Z95.2 Presence of prosthetic heart valve
CPT/HCPCS: 71046

== ENCOUNTER 2021-01-08 10:49 | Outpatient (RCR) | payer MEDICARE, BC, SELFPAY ==
[2020-12-20 19:47] VITALS: BMI 27.6
[2020-12-25 10:58] LABS: International Normalized Ratio 3.6; Prothrombin Time (Protime)PT. 34.9 SECONDS (11.7-14.9)
[2020-12-25 11:34] LABS: T4 Total, Thyroxin 14.2 ug/dL (4.8-13.9); Thyroid Stim Hormone (TSH) 4.88 uIU/mL (0.358-3.74)
[2021-01-08 11:59] LABS: AST(SGOT) 31 U/L (15-37); Alanine Aminotransfer ALT/SGPT 40 U/L (13-56); Albumin, Serum 3.1 g/dL (3.2-5.0); Alkaline Phosphatase 109 U/L (45-117); Bilirubin, Direct 0.19 mg/dL (0.00-0.30); Cholesterol 179 mg/dL (200); Globulin 3.5 g/dL (2.2-4.2); High Density Lipoprotein 67 mg/dL; Protein, Total 6.6 g/dL (6.4-8.2); Triglycerides 117 mg/dL; Very Low Density Lipoprotein 23 mg/dL (5-40)
== END 2021-01-19 18:00 | disposition home or self-care (01) ==
LOC: LAB 10:49
PROVIDERS: PCP Family Medicine; Referring Provider Internal Medicine Cardiovascular Disease; Visit Provider Internal Medicine Cardiovascular Disease
DX: I48.92 Unspecified atrial flutter (principal); Z95.2 Presence of prosthetic heart valve; Z79.01 Long term (current) 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; E78.5 Hyperlipidemia, unspecified; R53.83 Other fatigue
CPT/HCPCS: 36415; 80061; 80076; 84436; 84443; 85610

== ENCOUNTER → 2021-01-15 | Outpatient (CLI) | payer MEDICARE, BC, SELFPAY | END | disposition home or self-care (01) | LOC: LABSPEC 14:55 | PROVIDERS: Visit Provider Family Medicine | DX: U07.1 COVID-19 (principal) | CPT/HCPCS: 87635; U0005; U0003 ==

== ENCOUNTER 2021-02-09 10:28 | Outpatient (RCR) | payer MEDICARE, BC, SELFPAY ==
[2021-01-20 03:24] VITALS: BMI 27.6
[2021-01-21 09:46] LABS: Prothrombin Time (Protime)PT. 48.4 SECONDS (11.7-14.9)
[2021-01-21 09:50] LABS: International Normalized Ratio 5.4
[2021-01-25 12:35] LABS: International Normalized Ratio 3.4; Prothrombin Time (Protime)PT. 33.6 SECONDS (11.7-14.9)
[2021-02-02 10:52] LABS: International Normalized Ratio 3.6; Prothrombin Time (Protime)PT. 35.3 SECONDS (11.7-14.9)
[2021-02-09 11:19] LABS: International Normalized Ratio 3.4; Prothrombin Time (Protime)PT. 33.8 SECONDS (11.7-14.9)
== END 2021-02-20 18:00 | disposition home or self-care (01) ==
LOC: LAB 10:28
PROVIDERS: Referring Provider Internal Medicine Cardiovascular Disease; Visit Provider Internal Medicine Cardiovascular Disease
DX: I48.92 Unspecified atrial flutter (principal); Z95.2 Presence of prosthetic heart valve; Z79.01 Long term (current) 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
CPT/HCPCS: 36415; 85610

== ENCOUNTER → 2021-02-15 08:07 | Outpatient (CLI) | payer MEDICARE, BC, SELFPAY ==
--- NOTE | 2021-02-16 10:42 | PFT ---
INTRODUCTION: The patient is a 80-year-old female that presents for pulmonary function studies secondary to a diagnosis of shortness of breath. Respiratory therapy reported good patient effort. Bronchodilators were used during testing. INTERPRETATION: Forced expiration spirometry demonstrates no evidence of a large airways obstructive ventilatory defect. There was no significant response to aerosolized bronchodilators. Spirograms are of good quality and plateau normally. Body plethysmography was performed and reveals lung volumes to be within normal limits. Diffusing capacity by single breath CO is reduced at 54% of predicted. IMPRESSION: Isolated moderate reduction in diffusing capacity.
== END ==
PROVIDERS: Visit Provider Internal Medicine Cardiovascular Disease
DX: R53.83 Other fatigue (principal); E78.5 Hyperlipidemia, unspecified; I48.92 Unspecified atrial flutter; Z95.2 Presence of prosthetic heart valve
CPT/HCPCS: 93225; 93226; 94060; 94726; 94729

== ENCOUNTER 2021-03-17 10:33 | Outpatient (RCR) | payer MEDICARE, BC, SELFPAY ==
[2021-02-21 04:21] VITALS: BMI 27.6
[2021-02-23 12:12] LABS: International Normalized Ratio 3.6; Prothrombin Time (Protime)PT. 34.7 SECONDS (11.7-14.9)
[2021-03-03 11:39] LABS: International Normalized Ratio 3.1; Prothrombin Time (Protime)PT. 30.8 SECONDS (11.7-14.9)
[2021-03-17 11:28] LABS: International Normalized Ratio 3.1; Prothrombin Time (Protime)PT. 30.9 SECONDS (11.7-14.9)
== END 2021-03-22 18:00 | disposition home or self-care (01) ==
LOC: LAB 10:33
PROVIDERS: Referring Provider Internal Medicine Cardiovascular Disease; Visit Provider Internal Medicine Cardiovascular Disease
DX: I48.92 Unspecified atrial flutter (principal); Z79.01 Long term (current) 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
CPT/HCPCS: 36415; 85610

== ENCOUNTER 2021-04-06 12:59 | Outpatient (RCR) | payer MEDICARE, BC, SELFPAY ==
[2021-03-23 01:14] VITALS: BMI 27.6
[2021-04-06 13:48] LABS: International Normalized Ratio 2.4; Prothrombin Time (Protime)PT. 25.6 SECONDS (11.7-14.9)
== END 2021-04-06 23:59 | disposition home or self-care (01) ==
LOC: LAB 12:59
PROVIDERS: Referring Provider Internal Medicine Cardiovascular Disease; Visit Provider Internal Medicine Cardiovascular Disease
DX: I48.92 Unspecified atrial flutter (principal); Z79.01 Long term (current) 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
CPT/HCPCS: 36415; 85610

== ENCOUNTER 2021-05-04 12:26 | Outpatient (RCR) | payer MEDICARE, BC, SELFPAY ==
[2021-04-20 09:44] VITALS: BMI 27.6
[2021-04-20 11:39] LABS: Prothrombin Time (Protime)PT. 30.7 SECONDS (11.7-14.9)
[2021-05-04 13:26] LABS: International Normalized Ratio 3.3; Prothrombin Time (Protime)PT. 32.4 SECONDS (11.7-14.9)
== END 2021-05-20 18:00 | disposition home or self-care (01) ==
LOC: LAB 12:26
PROVIDERS: Referring Provider Internal Medicine Cardiovascular Disease; Visit Provider Internal Medicine Cardiovascular Disease
DX: I48.92 Unspecified atrial flutter (principal); Z79.01 Long term (current) 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
CPT/HCPCS: 36415; 85610

== ENCOUNTER 2021-05-25 13:22 | Outpatient (RCR) | payer MEDICARE, BC, SELFPAY ==
[2021-05-21 02:30] VITALS: BMI 27.6
[2021-05-25 13:43] LABS: International Normalized Ratio 2.9; Prothrombin Time (Protime)PT. 29.5 SECONDS (11.7-14.9)
== END 2021-05-25 18:00 | disposition home or self-care (01) ==
LOC: LAB 13:22
PROVIDERS: Referring Provider Internal Medicine Cardiovascular Disease; Visit Provider Internal Medicine Cardiovascular Disease
DX: I48.92 Unspecified atrial flutter (principal); Z79.01 Long term (current) 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
CPT/HCPCS: 36415; 85610

== ENCOUNTER 2021-06-23 12:41 | Outpatient (RCR) | payer MEDICARE, BC, SELFPAY ==
[2021-06-20 03:25] VITALS: BMI 27.6
[2021-06-23 13:56] LABS: Prothrombin Time (Protime)PT. 30.7 SECONDS (11.7-14.9)
== END 2021-06-23 18:00 | disposition home or self-care (01) ==
LOC: LAB 12:41
PROVIDERS: Referring Provider Internal Medicine Cardiovascular Disease; Visit Provider Internal Medicine Cardiovascular Disease
DX: I48.92 Unspecified atrial flutter (principal); Z79.01 Long term (current) 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
CPT/HCPCS: 36415; 85610

== ENCOUNTER → 2021-06-28 | Outpatient (CLI) | payer MEDICARE, BC, SELFPAY ==
[2021-06-28 14:56] LABS: T4 Free Direct 1.33 ng/dL (0.76-1.46); Thyroid Stim Hormone (TSH) 4.68 uIU/mL (0.358-3.74)
== END | disposition home or self-care (01) ==
LOC: LAB 11:24
PROVIDERS: PCP Family Medicine; Referring Provider Nurse Practitioner Family; Visit Provider Nurse Practitioner Family
DX: E78.5 Hyperlipidemia, unspecified (principal); R53.83 Other fatigue; Z79.899 Other long term (current) drug therapy
CPT/HCPCS: 36415; 84439; 84443

== ENCOUNTER 2021-08-18 12:20 | Outpatient (RCR) | payer MEDICARE, BC, SELFPAY ==
[2021-07-20 20:46] VITALS: BMI 27.6
[2021-07-21 13:04] LABS: Prothrombin Time (Protime)PT. 30.6 SECONDS (11.7-14.9)
[2021-07-21 13:30] LABS: AST(SGOT) 32 U/L (15-37); Alanine Aminotransfer ALT/SGPT 33 U/L (13-56); Albumin, Serum 3.3 g/dL (3.2-5.0); Alkaline Phosphatase 111 U/L (45-117); Bilirubin, Direct 0.19 mg/dL (0.00-0.30); Cholesterol 197 mg/dL (200); Globulin 3.5 g/dL (2.2-4.2); High Density Lipoprotein 75 mg/dL; Protein, Total 6.8 g/dL (6.4-8.2); Triglycerides 95 mg/dL; Very Low Density Lipoprotein 19 mg/dL (5-40)
[2021-08-18 12:57] LABS: Prothrombin Time (Protime)PT. 44.4 SECONDS (11.7-14.9)
[2021-08-18 13:50] LABS: International Normalized Ratio 4.8
== END 2021-08-18 23:59 | disposition home or self-care (01) ==
LOC: LAB 12:20
PROVIDERS: PCP Family Medicine; Referring Provider Internal Medicine Cardiovascular Disease; Visit Provider Internal Medicine Cardiovascular Disease
DX: I48.92 Unspecified atrial flutter (principal); Z79.01 Long term (current) 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; E78.00 Pure hypercholesterolemia, unspecified
CPT/HCPCS: 36415; 80061; 80076; 85610

== ENCOUNTER 2021-09-10 12:35 | Outpatient (RCR) | payer MEDICARE, BC, SELFPAY ==
[2021-08-20 07:04] VITALS: BMI 27.6
[2021-08-20 11:25] LABS: International Normalized Ratio 4.1; Prothrombin Time (Protime)PT. 39.4 SECONDS (11.7-14.9)
[2021-08-27 12:21] LABS: International Normalized Ratio 3.3; Prothrombin Time (Protime)PT. 33.3 SECONDS (11.7-14.9)
[2021-09-10 14:38] LABS: International Normalized Ratio 3.7; Prothrombin Time (Protime)PT. 36.2 SECONDS (11.7-14.9)
== END 2021-09-19 02:40 | disposition home or self-care (01) ==
LOC: LAB 12:35
PROVIDERS: PCP Family Medicine; Referring Provider Internal Medicine Cardiovascular Disease; Visit Provider Internal Medicine Cardiovascular Disease
DX: I48.92 Unspecified atrial flutter (principal); Z79.01 Long term (current) 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
CPT/HCPCS: 36415; 85610

== ENCOUNTER 2021-10-08 12:23 | Outpatient (RCR) | payer MEDICARE, BC, SELFPAY ==
[2021-09-19 02:40] VITALS: BMI 27.6
[2021-09-24 10:07] LABS: International Normalized Ratio 3.3; Prothrombin Time (Protime)PT. 33.2 SECONDS (11.7-14.9)
[2021-10-08 13:49] LABS: International Normalized Ratio 3.4; Prothrombin Time (Protime)PT. 33.7 SECONDS (11.7-14.9)
== END 2021-10-08 18:00 | disposition home or self-care (01) ==
LOC: LAB 12:23
PROVIDERS: PCP Family Medicine; Referring Provider Internal Medicine Cardiovascular Disease; Visit Provider Internal Medicine Cardiovascular Disease
DX: I48.92 Unspecified atrial flutter (principal); Z79.01 Long term (current) 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
CPT/HCPCS: 36415; 85610

== ENCOUNTER → 2021-10-15 | Outpatient (CLI) | payer MEDICARE, BC, SELFPAY ==
--- NOTE | 2021-10-15 12:39 | US_ITS ---
STUDY: ULTRASOUND OF THE FEMALE PELVIS - COMPLETE REASON FOR EXAM: Female, 80 years old. AUB -SLIGHT DISCHARGE -- PATIENT HAS A PESSARY TECHNIQUE: Transabdominal TECHNICAL QUALITY: Adequate. COMPARISON: None. FINDINGS: The uterus is anteverted and is in a midline position. The uterus measures 4.8 x 6.3 x 1.9 cm. Normal uterine cervix. There is a pessary in place. The endometrium measures 3.3 mm in thickness, and is hyperechoic. There is no demonstrated endometrial mass. There is no demonstrated myometrial mass. I.U.D. - The patient does not have an I.U.D. The right ovary is visualized. The right ovary measures 2.5 x 1.1 x 1.6 cm. There is no right ovarian cyst or ovarian mass. There is no visualized right adnexal mass or complex lesion. There is normal arterial and normal venous vascularity. The left ovary is non-visualized. There is minimal fluid in the cul-de-sac. The volume of the bladder is 29.22 ml. Polycystic ovary disease: No. US/Pelvic (Non ) IMPRESSION: Nonvisualization of the left ovary secondary to overlying bowel gas. Pessary in a grossly satisfactory position. Electronically Signed: Ruby Dumont MD at 10:10 EDT ,
== END | disposition home or self-care (01) ==
PROVIDERS: PCP Internal Medicine; Visit Provider Urology
DX: N93.9 Abnormal uterine and vaginal bleeding, unspecified (principal)
CPT/HCPCS: 76856

== ENCOUNTER 2021-11-05 09:55 | Outpatient (RCR) | payer MEDICARE, BC, SELFPAY ==
[2021-10-20 23:05] VITALS: BMI 27.6
[2021-10-22 13:26] LABS: International Normalized Ratio 3.7; Prothrombin Time (Protime)PT. 36.3 SECONDS (11.7-14.9)
[2021-11-05 10:36] LABS: Prothrombin Time (Protime)PT. 30.6 SECONDS (11.7-14.9)
== END 2021-11-05 18:00 | disposition home or self-care (01) ==
LOC: LAB 09:55
PROVIDERS: PCP Internal Medicine; Referring Provider Internal Medicine Cardiovascular Disease; Visit Provider Internal Medicine Cardiovascular Disease
DX: I48.92 Unspecified atrial flutter (principal); Z79.01 Long term (current) 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
CPT/HCPCS: 36415; 85610

== ENCOUNTER → 2021-11-30 | Outpatient (CLI) | payer MEDICARE, BC, SELFPAY ==
--- NOTE | 2021-11-30 08:17 | RAD_ITS ---
STUDY: X-RAY - LUMBAR SPINE REASON FOR EXAM: Female, 81 years old. fall, low back pain TECHNIQUE: 3 view(s) of the lumbar spine were obtained. COMPARISON: None FINDINGS: Straightening of lumbar lordosis. Severe anterior osteophyte formation L1-to moderate remainder of lumbar spine. Severe loss of disc space height throughout the lumbar spine. Status post cholecystectomy. RAD/Lumbar Spine 2 or 3 Views IMPRESSION: Severe degenerative disc disease as above. Electronically Signed: Torrey Marsh MD, [place] at 12:15 EDT ,
--- NOTE | 2021-11-30 08:17 | RAD_ITS ---
STUDY: X-RAY - RIGHT KNEE REASON FOR EXAM: Female, 81 years old. fall, right leg pain TECHNIQUE: 4 view(s) of the knee. COMPARISON: None. FINDINGS: Moderate joint space narrowing medial and patellofemoral compartments. Mild joint space narrowing lateral compartment. Moderate chondrocalcinosis periphery of medial and lateral compartments. Soft tissues demonstrate moderate prepatellar soft tissue swelling. There is oblique lucency of the proximal fibular metaphysis medially. This could be due to old fracture. Acute fracture less likely. Distal femur and proximal tibia are intact. RAD/Knee 4 or More Views IMPRESSION: Fracture versus developmental anomaly of the proximal fibular metaphysis. Acute fracture less likely. Tricompartmental osteoarthritis. Chondrocalcinosis. Moderate prepatellar soft tissue swelling. Electronically Signed: Torrey Marsh MD, [place] at 12:17 EDT ,
--- NOTE | 2021-11-30 08:17 | CT_ITS ---
STUDY: CT BRAIN WITHOUT CONTRAST REASON FOR EXAM: Female, 81 years old. Fall, on warfarin, headache RADIATION DOSAGE (If Supplied By Facility): CTDIvol = ( 44.99 ) mGy, DLP = ( 779.24 ) mGycm TECHNIQUE: Transaxial CT imaging of the brain was performed without administration of intravenous contrast material. Individualized dose optimization techniques were used for this CT. COMPARISON: No relevant priors. FINDINGS: Normal soft tissue structures. Normal calvarium. There is mild cerebral atrophy with widening of the extra-axial spaces and ventricular dilatation. Normal white matter tracts of the cerebral hemispheres. Normal basal ganglia and thalami. Normal brainstem. Normal cerebellum. There is no intracranial hemorrhage. There are no findings of an acute ischemic infarction. Atherosclerotic plaque formation of the cavernous portions of the internal carotid arteries. Mucosal thickening of the right sphenoid sinus. CT/Brain/Head without Contrast IMPRESSION: Chronic involutional changes of the brain. Electronically Signed: Walter Vickers MD at 15:05 EDT ,
--- NOTE | 2021-11-30 08:17 | RAD_ITS ---
STUDY: X-RAY - PELVIS AND RIGHT HIP REASON FOR EXAM: Female, 81 years old. fall, right leg pain TECHNIQUE: 3 views of the pelvis and hip. COMPARISON: None. FINDINGS: Moderate joint space narrowing right hip symmetric as compared to left. Mild osteophytic spurring base of right femoral head symmetric as compared to left. Moderate osteophytic spurring right acetabular rim and symmetric as compared to left. No evidence of fracture, subluxation or dislocation. Severe degenerative disc disease L3-S1. RAD/HIP, UNI W/ Pelvis 2-3 Views IMPRESSION: Moderate right hip osteoarthritis as above. Electronically Signed: Torrey Marsh MD, [place] at 12:16 EDT ,
== END | disposition home or self-care (01) ==
LOC: CT 08:15
PROVIDERS: PCP Internal Medicine; Referring Provider Internal Medicine; Visit Provider Internal Medicine
DX: G44.309 Post-traumatic headache, unspecified, not intractable (principal); Z79.01 Long term (current) 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; M25.551 Pain in right hip; M25.561 Pain in right knee; M54.50 Low back pain, unspecified
CPT/HCPCS: 70450; 72100; 73502; 73564

== ENCOUNTER → 2021-12-09 | Outpatient (CLI) | payer MEDICARE, SELFPAY ==
--- NOTE | 2021-12-09 12:23 | BI_ITS ---
MAMMOGRAPHY - BILATERAL SCREENING 3-D TOMOSYNTHESIS REASON FOR EXAM: Female, 81 years old. Routine screening PERTINENT HISTORY: No significant family history. TECHNIQUE: 2-D mammograms and 3-D Tomosynthesis of the breast (s) were performed. CAD was performed. COMPARISON: 11/18/2020 FINDINGS: The breast composition is composed of scattered fibroglandular density. Scattered benign calcifications are seen. No dense spiculated masses or suspicious microcalcifications are identified. No architectural distortion is identified. There is no skin thickening or retraction. There has been no significant change since the prior study. BI/SCRN MAMM (CAD)W/EDDA BILAT IMPRESSION: No mammographic signs of malignancy. Routine yearly mammograms recommended. ASSESSMENT CATEGORY: BIRADS Category 1: Negative. A letter regarding these results will be sent to the patient by the facility within 30 days. FOLLOW UP RECOMMENDATION: Yearly follow up mammogram recommended. (A) Approximately 10% of breast cancers are not detected by mammography. A normal mammogram should not delay biopsy of a clinically suspicious abnormality. Electronically Signed: Esa Rangel MD at 13:18 EDT ,
--- NOTE | 2021-12-09 12:27 | BD_ITS ---
STUDY: DUAL ENERGY X-RAY ABSORPTIOMETRY / DXA REASON FOR EXAM: Female, 81 years old. Postmenopausal TECHNIQUE: Bone Mineral Density (BMD) measurements of lumbar spine and left hip were obtained. COMPARISON: Comparison is made with prior study dated 10/26/2017. FINDINGS: Lumbar Spine (L1-L4): g/cm2 (1.072) / T-score (-0.1) / Z-score (2.7) Findings are suggestive of normal bone density with a low fracture risk. Left Femur Total: g/cm2 (0.781) / T-score (-1.3) / Z-score (0.7) Left Femoral Neck: g/cm2 (0.656) / T-score (-1.7) / Z-score (0.6) The T-Scores on the most recent prior examination were: Lumbar Spine (L1-L4): There has been improvement of bone density since the previous examination. Left Femur Total: which represents an improvement of 3%. BD/Dexa Bone Density Study IMPRESSION: The patient is considered osteopenic as outlined below according to World Eriberto Organization (WHO) criteria with a moderate fracture risk. There has been improvement of bone density since the previous examination. Reference Information: The T-score is the number of standard deviations above or below the standard which is normal for young adults at their peak bone mineral density. The World Health Organization (WHO) interprets the T-scores as follows: Above -1 Normal bone density Between -1 and -2.5 Osteopenia Equal to / or below -2.5 Osteoporosis As a practical clinical guideline, osteopenia may be graded as follows: Mild -1 through -1.5 Moderate -1.6 through -2.0 Severe -2.1 through -2.4 The Z-score is the number of standard deviations above or below age-matched controls. A Z-score of less than -1.5 would be considered abnormal. References: 1. NIH Osteoporosis and Related Bone Diseases www osteo.org 2. International Society for Clinical Densitometry www iscd.org 3. National Osteoporosis Foundation www nof.org Electronically Signed: Walter Vickers MD at 13:26 EDT ,
== END | disposition home or self-care (01) ==
LOC: OPBD 12:20
PROVIDERS: PCP Internal Medicine; Visit Provider Nurse Practitioner Women's Health
DX: Z13.820 Encounter for screening for osteoporosis (principal); Z78.0 Asymptomatic menopausal state; Z12.31 Encounter for screening mammogram for malignant neoplasm of breast
CPT/HCPCS: 77063; 77067; 77080

== ENCOUNTER 2021-12-20 12:08 | Outpatient (RCR) | payer MEDICARE, BC, SELFPAY ==
[2021-11-19 21:37] VITALS: BMI 27.6
[2021-11-26 13:57] LABS: International Normalized Ratio 2.8; Prothrombin Time (Protime)PT. 29.2 SECONDS (11.7-14.9)
[2021-12-20 13:38] LABS: International Normalized Ratio 2.9; Prothrombin Time (Protime)PT. 29.7 SECONDS (11.7-14.9)
== END 2021-12-20 18:00 | disposition home or self-care (01) ==
LOC: LAB 12:08
PROVIDERS: PCP Internal Medicine; Referring Provider Internal Medicine Cardiovascular Disease; Visit Provider Internal Medicine Cardiovascular Disease
DX: I48.92 Unspecified atrial flutter (principal); Z79.01 Long term (current) 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
CPT/HCPCS: 36415; 85610

== ENCOUNTER → 2022-01-11 | Outpatient (CLI) | payer MEDICARE, BC, SELFPAY ==
--- NOTE | 2022-01-11 11:07 | CDU_ITS ---
Reason For Study: Lightheadedness Rt. Velocities/BP Lt. Velocities/BP Prox CCA 74.9/19.2 cm/sec. Prox CCA 68.8/12.7 cm/sec. Mid CCA 69.5/17.5 cm/sec. Mid CCA 53.4/16.0 cm/sec. Dist CCA 55.4/17.6 cm/sec. Dist CCA 52.3/11.7 cm/sec. Prox ICA 46.9/13.8 cm/sec. Prox ICA 55.6/13.8 cm/sec. Mid ICA 82.8/24.2 cm/sec. Mid ICA 60.0/17.1 cm/sec. Dist ICA 67.5/19.8 cm/sec. Dist ICA 79.8/25.3 cm/sec. Rt. ICA/CCA = 1.2. Lt. ICA/CCA = 1.5. Prox ECA 52.5/8.1 cm/sec. Prox ECA 45.7/8.4 cm/sec. Rt. Vert. 34.6/10.9 cm/sec. Lt. Vert. 51.1/11.8 cm/sec. Right Extracranial There is heterogeneous, irregular atherosclerotic plaque noted in the right common carotid artery. There is heterogeneous, irregular atherosclerotic plaque noted in the right internal carotid artery. There is intimal thickening but no significant atherosclerotic plaque noted in the right external carotid artery. Antegrade flow is noted in the right vertebral artery. Left Extracranial There is intimal thickening but no significant atherosclerotic plaque noted in the left common carotid artery. There is heterogeneous, irregular atherosclerotic plaque noted in the left internal carotid artery. There is heterogeneous, irregular atherosclerotic plaque noted in the left external carotid artery. Antegrade flow is noted in the left vertebral artery. Procedure Carotid Duplex [id number]. This is a Carotid Duplex examination using B-mode, color flow and specral Doppler. The exam was diagnostic. Exam performed in department. VL/Carotid Duplex Ultrasound Interpretation Summary Mild (<50%) stenosis right extracranial internal carotid. Mild (<50%) stenosis left extracranial internal carotid. Patent and antegrade vertebrals bilaterally. Ordering Physician: Newton Bush Referring Physician: Marian Jackson Performed By: Jame Jonas RVT
== END | disposition home or self-care (01) ==
LOC: CVS 11:06
PROVIDERS: PCP Internal Medicine; Referring Provider Nurse Practitioner Family; Visit Provider Nurse Practitioner Family
DX: I65.23 Occlusion and stenosis of bilateral carotid arteries (principal); R42 Dizziness and giddiness
CPT/HCPCS: 93880

== ENCOUNTER 2022-01-17 12:07 | Outpatient (RCR) | payer MEDICARE, BC, SELFPAY ==
[2021-12-21 09:40] VITALS: BMI 27.6
[2022-01-17 14:48] LABS: International Normalized Ratio 2.7; Prothrombin Time (Protime)PT. 28.3 SECONDS (11.7-14.9)
== END 2022-01-19 18:00 | disposition home or self-care (01) ==
LOC: LAB 12:07
PROVIDERS: PCP Internal Medicine; Referring Provider Internal Medicine Cardiovascular Disease; Visit Provider Internal Medicine Cardiovascular Disease
DX: I48.92 Unspecified atrial flutter (principal); Z79.01 Long term (current) 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
CPT/HCPCS: 36415; 85610

== ENCOUNTER 2022-01-19 14:30 | Outpatient (RCR) | payer MEDICARE, SELFPAY ==
--- NOTE | 2021-12-14 13:59 | HP.PTEVAL ---
Patient's Visit Information DONNA NARANJO is a 81 year old F referred to Physical Therapy by Dr. 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 Date of Evaluation: 12/14/21 Physical Therapist: Fatuma Guevara DPT - Visit Plan Frequency: 2x /Week Duration: 4 Weeks Plan: Focus on LE and core strength/stabilization- recommended cane for AD. *Allergy to Latex. HEP Given IE: TA Contraction, Bridge, SLR, Hip add - Subjective Fell 2-3 months ago- she turned and lost her balance- her back was bothering her and she was compensating and since then its been her back and her whole right side has been bothering her. She is now having groin pain. She went to see the ortho who took x-rays and medication. She has been taking medication for about 5 days and is unsure if its really helping. She has a lot of groin pains. Today the pain is right in the joint- but it does radiate to the whole leg into the [place]. She has had back pain on/off for a long time. She does have OA with DDD in her lumbar spine. Describes the pain as dull pains. Worst:4/10 Aggravated: walking, standing- and pressure on that leg. That's how her back is as well especially with standing. Ease: sitting down Best: 0/10. As soon as she sits the pain goes away. The back is the same way. She does not use an AD. She broke her right leg in 2016- at the ankle. No N/T in the leg. Sleep: not disturbed. She has had x-rays: Lumbar: Severe degenerative disc disease L3-S1. Hip: moderate OA. Declined injections. She is not very active- they got a puppy so she is more active. PMHx/Meds: no changes since ortho 12/08/21. - Objective Posture: Fh, RS- can correct but does not maintain. Gait: antalgic- no AD- decreased stance on the right LE with trunk lean to the right. HR/TR: able with UE A. SLS: weight shift but does not SLS. Stairs: asc/desc 8 recip with 2 HR- desc turns to the side- asc leans off the right LE. Sensation: WNL to gross touch. ROM: Flexion: 90 degrees, Abd: 30 degrees, IR: neutral, ER: 30 degrees, Extn: 10 degrees. Strength: Core: fair minus, Hip: 4/5 throughout, Knee: 4+/5, Ankle: 5/5. Palpation: tender along ITBand - Special Tests R Hip Scour: Positive R Hip PINKY - Intraarticular Pathology: Positive R Hip FADDIR - Labrum: Positive R Hip Trendelenberg - Glut Medius: Positive - Balance/Special Test Scores Lower Extremity Functional Score: 37 - Goals Goal 1:: Patient will be I with HEP and progression Goal Time Frame: 4-6 Weeks Goal 2:: Patient will ambulate >300 feet with a normalized gait pattern with LRD Goal Time Frame: 4-6 Weeks Goal 3:: Patient will asc/desc 8 recip with 1 HR Goal Time Frame: 4-6 Weeks Goal 4:: Patient will report 80% improvement Goal Time Frame: 4-6 Weeks - Rehabilitation Potential Physical Therapy Diagnosis: Patient presents with hypomobility s/p fall- she has decreased LE and core strength/stabilization, flex and muscular endurance leading to poor posture, decreased proprioception and inability to perform ADL's. Rehabilitation Potential: Fair - Anticipated Interventions Patient/Client Instruction: Educate patient on: Benefits of Fitness Program Therapeutic Exercise to Include: Strength training, Endurance training, Balance training, Coordination, Agility training, Body mechanics, Postural training, Flexibilty training, Gait and locomotor training, Neuromotor development, Dynamic Lumbar Stabilization, Scapular Strength/Stabilization Cryotherapy (ice pack, ice massage): Yes Thermo therapy (hot pack): Yes Thank you for the opportunity to evaluate your patient. For Medicare and Medicare HMO plans, please review the plan of care and approve it. It will need to be FAXED BACK to us at [phone] for Medicare purposes. For Medicare only, by signing this I certify the plan of care. Please let me know if there are questions or concerns regarding this plan of care. Physician Signature: Date:
--- NOTE | 2022-01-19 16:38 | HP.PTDCSUM ---
It has been my pleasure to treat DONNA Guille NARANJO referred by Dr. Hossein Lee DO, with the diagnosis of ITBand Syndrome for a total of 9 visit(s). Discharge Date: Please see the following information for a summary of their discharge status. Subjective: Patient reports that she is doing better- she is wearing a heart monitor for 2 weeks or up to 30 days- due to being winded at home. Her hip is getting better but she knows the OA will make it never great. She is just using the cane in the community but not at home. Right Hip Pain Intensity (Out of 10): 5 % Improvement: 80 Objective/Function: Posture: fair throughout Gait: much improve with straight cane- mild Trendelenburg HR/TR: able with UE A. SLS: weight shift but does not SLS. Stairs: asc/desc 8 recip with 1 Sensation: WNL to gross touch. ROM: Flexion: 90 degrees, Abd: 30 degrees, IR: neutral, ER: 30 degrees, Extn: 10 degrees. Strength: Core: fair minus, Hip: 4+/5 throughout, Knee: 4+/5, Ankle: 5/5. Palpation: tender along ITBand. - Special Tests. R Hip Scour: Positive. R Hip PINKY - Intraarticular Pathology: Positive. R Hip FADDIR - Labrum: Positive. R Hip Trendelenberg - Glut Medius: Positive Goal 1:: Patient will be I with HEP and progression Goal Progress: Goal Met Goal 2:: Patient will ambulate >300 feet with a normalized gait pattern with LRD Goal Progress: Goal Met Goal 3:: Patient will asc/desc 8 recip with 1 HR Goal Progress: Goal Met Goal 4:: Patient will report 80% improvement Goal Progress: Goal Met Plan: 01/19/22: Discharge to I HEP. IE:Focus on LE and core strength/stabilization- recommended cane for AD. *Allergy to Latex. HEP Given IE: TA Contraction, Bridge, SLR, Hip add If there are questions or concerns regarding this patient's physical therapy, please feel free to call me at [phone]. Thank you for the referral of this patient. Sincerely, Fatuma Guevara, DPT Balance/Gait/Functional tests - Balance/Special Test Scores Lower Extremity Functional Score: 20 Tug Test: <20 sec.=mostly independent
== END 2022-01-19 19:00 | disposition home or self-care (01) ==
LOC: PT 14:30
PROVIDERS: PCP Internal Medicine; Referring Provider Orthopaedic Surgery; Visit Provider Orthopaedic Surgery
DX: M76.30 Iliotibial band syndrome, unspecified leg (principal); M70.60 Trochanteric bursitis, unspecified hip
CPT/HCPCS: 97110; 97162; 97164

== ENCOUNTER 2022-01-31 08:26 | Outpatient (RCR) | payer MEDICARE, BC, SELFPAY ==
[2022-01-19 23:13] VITALS: BMI 27.6
[2022-01-31 09:07] LABS: Absolute Lymphocyte Count 1.09 X10^3/uL (0.83-4.51); Absolute Neutrophil Count 4.2 X10^3/uL (2.0-7.7); Basophil# 0.09 X10^3/uL; Basophil% 1.3 % (0-1); Eosinophil# 0.39 X10^3/uL; Eosinophils% 5.8 % (0-5); Hemoglobin 11.1 g/dL (12.0-15.0); Lymphocyte # 1.09 X10^3/ul (0.83-4.51); Lymphocyte % 16.2 % (19-41); Mean Corp Hgb Conc 31.7 g/dL (32-36); Mean Corpuscular Volume 104.2 fL (81-99); Mean Platelet Vol. 9.6 fl (6.2-12.0); Monocyte# 0.91 X10^3/uL; Monocyte% 13.6 % (0-10); NRBC Flagged by Analyzer 0 % (0-5); Neutrophil % 62.7 % (47-70); Platelet Count 258 K/mm3 (150-450); RBC Distribution Width CV 15.8 % (11.6-14.6); RBC Distribution Width SD 60.8 fl (35.1-43.9); Red Blood Count 3.36 M/mm3 (4.2-5.4); White Blood Count 6.7 K/mm3 (4.4-11.0)
[2022-01-31 09:23] LABS: International Normalized Ratio 2.4; Prothrombin Time (Protime)PT. 25.8 SECONDS (11.7-14.9)
[2022-01-31 09:45] LABS: AST(SGOT) 26 U/L (15-37); Alanine Aminotransfer ALT/SGPT 30 U/L (13-56); Albumin, Serum 3.5 g/dL (3.2-5.0); Alkaline Phosphatase 88 U/L (45-117); Anion Gap 3 (5-15); BUN 34 mg/dL (7-18); BUN/Creat Ratio 19.4 RATIO (10-20); Bilirubin, Direct 0.21 mg/dL (0.00-0.30); Calcium,Total 9.4 mg/dL (8.5-10.1); Chloride 111 mmol/L (98-107); Cholesterol 190 mg/dL (200); Creatinine, Serum 1.75 mg/dL (0.55-1.02); EST Glomerular Filtration Rate 30 mL/min (>60); Est Glom Filt Rate - Afr Amer 36 mL/min (>60); Globulin 3.3 g/dL (2.2-4.2); Glucose 92 mg/dL (74-106); High Density Lipoprotein 74 mg/dL; Potassium 4.3 mmol/L (3.5-5.1); Protein, Total 6.8 g/dL (6.4-8.2); Sodium Level 141 mmol/L (136-145); Thyroid Stim Hormone (TSH) 4.79 uIU/mL (0.358-3.74); Triglycerides 111 mg/dL; Very Low Density Lipoprotein 22 mg/dL (5-40)
== END 2022-01-31 18:00 | disposition home or self-care (01) ==
LOC: LAB 08:26
PROVIDERS: Nurse Practitioner Family; PCP Internal Medicine; Referring Provider Internal Medicine Cardiovascular Disease; Visit Provider Internal Medicine Cardiovascular Disease
DX: I48.92 Unspecified atrial flutter (principal); Z79.01 Long term (current) 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; R53.83 Other fatigue; E78.00 Pure hypercholesterolemia, unspecified
CPT/HCPCS: 36415; 80048; 80061; 80076; 84443; 85025; 85610

== ENCOUNTER → 2022-02-02 | Outpatient (CLI) | payer MEDICARE, BC, SELFPAY ==
[2022-02-02 15:56] LABS: Vitamin B12 388 pg/mL (211-911); Vitamin D,25 Hydroxy 56.4 ng/mL
[2022-02-02 16:03] LABS: Ferritin 96 ng/mL (8-252); Free T3 1.9 pg/mL (2.18-3.98); Iron 63 ug/dL (50-170); Iron Binding Capacity,Total 339 ug/dL (250-450); Magnesium 2.6 mg/dL (1.6-2.6); PERCENT IRON SATURATION 18.6 % (15.0-55.0); T4 Total, Thyroxin 12.1 ug/dL (4.8-13.9)
[2022-02-02 16:10] LABS: Homocysteine 19.2 umol/L (3.2-10.7)
== END | disposition home or self-care (01) ==
LOC: BIMLAB 11:59
PROVIDERS: PCP Internal Medicine; Referring Provider Internal Medicine; Visit Provider Internal Medicine
DX: D53.9 Nutritional anemia, unspecified (principal); I48.92 Unspecified atrial flutter; R79.89 Other specified abnormal findings of blood chemistry; I10 Essential (primary) hypertension; M85.80 Other specified disorders of bone density and structure, unspecified site; Z78.0 Asymptomatic menopausal state
CPT/HCPCS: 36415; 82306; 82607; 82728; 82746; 83090; 83540; 83550; 83735; 84436; 84481

== ENCOUNTER 2022-03-08 10:28 | Outpatient (RCR) | payer MEDICARE, BC, SELFPAY ==
[2022-02-20 03:57] VITALS: BMI 27.6
[2022-02-22 11:36] LABS: International Normalized Ratio 2.2; Prothrombin Time (Protime)PT. 24.1 SECONDS (11.7-14.9)
[2022-03-08 11:04] LABS: International Normalized Ratio 2.4
== END 2022-03-08 12:00 | disposition home or self-care (01) ==
LOC: LAB 10:28
PROVIDERS: PCP Internal Medicine; Referring Provider Internal Medicine Cardiovascular Disease; Visit Provider Internal Medicine Cardiovascular Disease
DX: I48.92 Unspecified atrial flutter (principal); Z79.01 Long term (current) 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; Z95.2 Presence of prosthetic heart valve
CPT/HCPCS: 36415; 85610

== ENCOUNTER → 2022-03-08 | Outpatient (CLI) | payer MEDICARE, BC, SELFPAY ==
--- NOTE | 2022-03-08 10:32 | MRI_ITS ---
HISTORY: progressive leg weakness, chronic back pain. TECHNIQUE: Multiplanar and multisequence MR images of the lumbar spine were obtained without intravenous contrast. 135 images. COMPARISON: XR 11/30/2021. FINDINGS: VERTEBRAE: Vertebral body heights maintained. Degenerative bone marrow endplate changes of L1-2, L3-4, L4-5, and L5-S1. ALIGNMENT: No anterior or posterior subluxation. CONUS: Normal morphology and position of the conus medullaris at L1. INTERVERTEBRAL DISCS: Posterior disc bulge osteophyte complexes with facet arthropathy at multiple levels. T12-L1: No significant central canal stenosis. Mild right foraminal narrowing based on the sagittal images. L1-2: Minimal narrowing of the thecal sac. Moderate bilateral foraminal narrowing with probable impingement of the left L1 nerve root. L2-3: Disc bulge eccentric to the left with abutment of the left L3 nerve root and minimal narrowing of the thecal sac. Mild-moderate left and mild right foraminal narrowing. L3-4: Disc bulge with superimposed left subarticular extruded component resulting in left L4 nerve root abutment, moderate central canal stenosis, mild right foraminal narrowing, and severe left foraminal narrowing with left L3 nerve root impingement. L4-5: Right paracentral disc protrusion with abutment of the right L5 nerve root, minimal narrowing of the thecal sac, and moderate bilateral foraminal narrowing. L5-S1: No significant central canal stenosis. Mild bilateral foraminal narrowing. SOFT TISSUES: Mild posterior subcutaneous edema. MRI/Spine Lumbar (Routine) IMPRESSION: Multilevel degenerative disc disease resulting in moderate spinal canal stenosis, severe left foraminal narrowing, and left nerve root impingement at L3-4. Moderate foraminal narrowing with nerve root abutment/impingement at other levels. Electronically Signed: Megan Arroyo MD at 14:52 EST ,
== END | disposition home or self-care (01) ==
LOC: MRI 10:32
PROVIDERS: PCP Internal Medicine; Referring Provider Internal Medicine; Visit Provider Internal Medicine
DX: M51.36 Other intervertebral disc degeneration, lumbar region (principal); I48.92 Unspecified atrial flutter; Z79.01 Long term (current) 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
CPT/HCPCS: 36415; 72148; 85610

== ENCOUNTER → 2022-03-16 | Outpatient (CLI) | payer MEDICARE, BC, SELFPAY ==
[2022-03-16 13:03] LABS: BNP,B-Type NATRIURETIC PEPTIDE 161.6 pg/mL (0-100)
[2022-03-16 13:06] LABS: Anion Gap 9 (5-15); BUN 38 mg/dL (7-18); Chloride 106 mmol/L (98-107); Creatinine, Serum 1.81 mg/dL (0.55-1.02); EST Glomerular Filtration Rate 29 mL/min (>60); Est Glom Filt Rate - Afr Amer 35 mL/min (>60); Glucose 91 mg/dL (74-106); Potassium 4.2 mmol/L (3.5-5.1); Sodium Level 139 mmol/L (136-145)
== END | disposition home or self-care (01) ==
LOC: LAB 11:15
PROVIDERS: PCP Internal Medicine; Referring Provider Nurse Practitioner Family; Visit Provider Nurse Practitioner Family
DX: R06.00 Dyspnea, unspecified (principal); I48.92 Unspecified atrial flutter; Z79.899 Other long term (current) drug therapy
CPT/HCPCS: 36415; 80048; 83880

== ENCOUNTER → 2022-04-05 | Outpatient (CLI) | payer MEDICARE, BC, SELFPAY ==
--- NOTE | 2022-04-05 12:43 | ECHOD_ITS ---
Reason For Study: VALVE EVAL Procedure This was a 2D Doppler, Color Flow transthoracic echocardiogram. The study was technically difficult. Exam performed in department. Left Ventricle Normal LV size. Left ventricular systolic function is normal. The estimated ejection fraction is 55 %. Post operative septal motion. Stage 2 diastolic dysfunction. Right Ventricle Normal RV size. Normal systolic function. Atria The left atrium is moderately enlarged. Normal right atrium. No doppler evidence for ASD. Mitral Valve Stable appearing mechanical mitral valve apparatus. Trivial transvalvular insufficiency of the mitral valve. Tricuspid Valve Normal tricuspid valve. Mild tricuspid valve insufficiency. Right ventricular systolic pressure estimated to be 40 mmHg. Aortic Valve Stable appearing mechanical aortic valve apparatus. Trivial transvalvular insufficiency of the aortic valve. Pulmonic Valve The pulmonic valve is not well visualized. Mild-Moderate (1-2+) pulmonic valve insufficiency. Great Vessels Mildly dilated aortic root. Pericardium/Pleural No pericardial effusion. MMode/2D Measurements & Calculations LVIDd: 5.0 cm IVSd: 1.3 cm LVOT diam: 2.0 cm LVIDs: 3.7 cm LVPWd: 1.0 cm LVOT area: 3.1 cm2 RVDd: 3.5 cm FS: 25.2 % Ao root diam: 4.3 cm LAV(MOD-sp4): 144.0 ml LVAd ap4: 36.3 cm2 LVLd ap4: 8.2 cm EDV(MOD-sp4): 135.7 ml EDV(sp4-el): 136.5 ml LVAs ap4: 19.8 cm2 LVLs ap4: 7.1 cm ESV(MOD-sp4): 48.0 ml ESV(sp4-el): 47.1 ml EF(MOD-sp4): 64.6 % EF(sp4-el): 65.5 % SV(MOD-sp4): 87.7 ml SV(sp4-el): 89.4 ml LA A4 area: 36.6 cm2 LA dimension(2D): 5.1 cm RA A4 area: 17.1 cm2 Time Measurements MV dec time: 0.38 sec Doppler Measurements & Calculations MV E max iván: 95.5 cm/sec Lat Peak E' Iván: 15.6 cm/sec Med Peak E' Iván: 3.1 cm/sec MV A max iván: 56.3 cm/sec E/E' lat: 6.1 E/E' med: 30.5 MV E/A: 1.7 MV V2 max: 159.8 cm/sec Ao V2 max: 223.3 cm/sec MV max P.2 mmHg MV dec slope: 260.0 cm/sec2 Ao max P.1 mmHg MV V2 mean: 72.7 cm/sec Ao V2 mean: 144.9 cm/sec MV mean P.5 mmHg Ao mean P.1 mmHg MV V2 VTI: 53.7 cm Ao V2 VTI: 59.5 cm AV (velocity ratio): 0.77 MVA(VTI): 2.6 cm2 CHRISTINA(I,D): 2.4 cm2 CHRISTINA(V,D): 2.2 cm2 LV V1 max: 163.2 cm/sec SV(LVOT): 140.0 ml PA V2 max: 107.8 cm/sec LV V1 max P.7 mmHg PA V2 mean: 67.4 cm/sec LV V1 mean P.8 mmHg LV V1 mean: 113.0 cm/sec LV V1 VTI: 45.7 cm PI dec slope: 78.5 cm/sec2 TR max iván: 304.7 cm/sec TR max P.1 mmHg ECHO/Echo Complete Interpretation Summary The study was technically difficult. Left ventricular systolic function is normal. The estimated ejection fraction is 55 %. Post operative septal motion. The left atrium is moderately enlarged. Stable appearing mechanical mitral valve apparatus. Trivial transvalvular insufficiency of the mitral valve. Mild tricuspid valve insufficiency. Stable appearing mechanical aortic valve apparatus. Trivial transvalvular insufficiency of the aortic valve. Mild-Moderate (1-2+) pulmonic valve insufficiency. Mildly dilated aortic root. Right ventricular systolic pressure estimated to be 40 mmHg. Stage 2 diastolic dysfunction. Ordering Physician: Newton Bush Referring Physician: Newton Bush Performed By: Kathi Napier RCS
== END | disposition home or self-care (01) ==
LOC: PSN 12:42
PROVIDERS: PCP Internal Medicine; Referring Provider Nurse Practitioner Family; Visit Provider Nurse Practitioner Family
DX: R06.09 Other forms of dyspnea (principal); I48.92 Unspecified atrial flutter; I35.1 Nonrheumatic aortic (valve) insufficiency; Z95.2 Presence of prosthetic heart valve; Z79.01 Long term (current) 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; Z79.899 Other long term (current) drug therapy
CPT/HCPCS: 36415; 85610; 93225; 93226; 93306

== ENCOUNTER 2022-04-14 12:16 | Outpatient (RCR) | payer MEDICARE, BC, SELFPAY ==
[2022-03-23 08:19] VITALS: BMI 27.6
[2022-03-23 14:23] LABS: Prothrombin Time (Protime)PT. 30.5 SECONDS (11.7-14.9)
[2022-04-05 13:38] LABS: International Normalized Ratio 2.3; Prothrombin Time (Protime)PT. 25.3 SECONDS (11.7-14.9)
[2022-04-14 13:23] LABS: International Normalized Ratio 2.8
== END 2022-04-14 18:00 | disposition home or self-care (01) ==
LOC: LAB 12:16
PROVIDERS: PCP Internal Medicine; Referring Provider Internal Medicine Cardiovascular Disease; Visit Provider Internal Medicine Cardiovascular Disease
DX: I48.92 Unspecified atrial flutter (principal); Z95.2 Presence of prosthetic heart valve; Z79.01 Long term (current) 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
CPT/HCPCS: 36415; 85610

== ENCOUNTER 2022-05-06 10:49 | Outpatient (RCR) | payer MEDICARE, BC, SELFPAY ==
[2022-04-19 23:02] VITALS: BMI 27.6
[2022-04-27 15:32] LABS: International Normalized Ratio 2.1; Prothrombin Time (Protime)PT. 23.5 SECONDS (11.7-14.9)
== END 2022-05-20 23:00 | disposition home or self-care (01) ==
LOC: LAB 10:49
PROVIDERS: PCP Internal Medicine; Referring Provider Internal Medicine Cardiovascular Disease; Visit Provider Internal Medicine Cardiovascular Disease
DX: I48.92 Unspecified atrial flutter (principal); Z95.2 Presence of prosthetic heart valve; Z79.01 Long term (current) 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
CPT/HCPCS: 36415; 85610

== ENCOUNTER 2022-06-03 12:48 | Outpatient (RCR) | payer MEDICARE, BC, SELFPAY ==
[2022-05-21 00:33] VITALS: BMI 27.6
[2022-06-03 14:10] LABS: International Normalized Ratio 2.7; Prothrombin Time (Protime)PT. 28.5 SECONDS (11.7-14.9)
== END 2022-06-19 01:21 | disposition home or self-care (01) ==
LOC: LAB 12:48
PROVIDERS: PCP Internal Medicine; Referring Provider Internal Medicine Cardiovascular Disease; Visit Provider Internal Medicine Cardiovascular Disease
DX: I48.92 Unspecified atrial flutter (principal); Z95.2 Presence of prosthetic heart valve; Z79.01 Long term (current) 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
CPT/HCPCS: 36415; 85610

== ENCOUNTER 2022-07-01 11:59 | Outpatient (RCR) | payer MEDICARE, BC, SELFPAY ==
[2022-06-19 01:21] VITALS: BMI 27.6
[2022-07-01 12:36] LABS: International Normalized Ratio 3.2; Prothrombin Time (Protime)PT. 33.2 SECONDS (11.7-14.9)
== END 2022-07-20 18:00 | disposition home or self-care (01) ==
LOC: LAB 11:59
PROVIDERS: PCP Internal Medicine; Referring Provider Internal Medicine Cardiovascular Disease; Visit Provider Internal Medicine Cardiovascular Disease
DX: I48.92 Unspecified atrial flutter (principal); Z95.2 Presence of prosthetic heart valve; Z79.01 Long term (current) 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
CPT/HCPCS: 36415; 85610

== ENCOUNTER 2022-08-09 11:40 | Outpatient (RCR) | payer MEDICARE, BC, SELFPAY ==
[2022-07-21 09:41] VITALS: BMI 27.6
[2022-07-29 12:19] LABS: International Normalized Ratio 6.5
[2022-07-29 12:28] LABS: T4 Free Direct 1.32 ng/dL (0.76-1.46)
[2022-08-01 10:29] LABS: International Normalized Ratio 3.8; Prothrombin Time (Protime)PT. 37.8 SECONDS (11.7-14.9)
[2022-08-09 12:41] LABS: International Normalized Ratio 2.6; Prothrombin Time (Protime)PT. 28.2 SECONDS (11.7-14.9)
== END 2022-08-09 18:00 | disposition home or self-care (01) ==
LOC: LAB 11:40
PROVIDERS: PCP Internal Medicine; Referring Provider Nurse Practitioner Family; Visit Provider Nurse Practitioner Family
DX: I48.92 Unspecified atrial flutter (principal); Z95.2 Presence of prosthetic heart valve; Z79.01 Long term (current) 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
CPT/HCPCS: 36415; 84439; 85610

== ENCOUNTER 2022-08-30 11:36 | Outpatient (RCR) | payer MEDICARE, BC, SELFPAY ==
[2022-08-19 22:22] VITALS: BMI 27.6
[2022-08-30 12:53] LABS: International Normalized Ratio 3.4; Prothrombin Time (Protime)PT. 34.9 SECONDS (11.7-14.9)
== END 2022-09-19 18:00 | disposition home or self-care (01) ==
LOC: LAB 11:36
PROVIDERS: PCP Internal Medicine; Referring Provider Nurse Practitioner Family; Visit Provider Nurse Practitioner Family
DX: I48.92 Unspecified atrial flutter (principal); Z95.2 Presence of prosthetic heart valve; Z79.01 Long term (current) 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
CPT/HCPCS: 36415; 85610

== ENCOUNTER 2022-09-27 10:19 | Outpatient (RCR) | payer MEDICARE, BC, SELFPAY ==
[2022-09-20 00:44] VITALS: BMI 27.6
[2022-09-27 11:50] LABS: International Normalized Ratio 2.9; Prothrombin Time (Protime)PT. 30.5 SECONDS (11.7-14.9)
== END 2022-09-27 18:00 | disposition home or self-care (01) ==
LOC: LAB 10:19
PROVIDERS: PCP Internal Medicine; Referring Provider Nurse Practitioner Family; Visit Provider Nurse Practitioner Family
DX: I48.92 Unspecified atrial flutter (principal); Z95.2 Presence of prosthetic heart valve; Z79.01 Long term (current) 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
CPT/HCPCS: 36415; 85610

== ENCOUNTER 2022-10-25 13:40 | Outpatient (RCR) | payer MEDICARE, BC, SELFPAY ==
[2022-10-20 22:57] VITALS: BMI 27.6
[2022-10-25 15:27] LABS: International Normalized Ratio 2.9
== END 2022-10-25 18:00 | disposition home or self-care (01) ==
LOC: LAB 13:40
PROVIDERS: PCP Internal Medicine; Referring Provider Nurse Practitioner Family; Visit Provider Nurse Practitioner Family
DX: I48.92 Unspecified atrial flutter (principal); Z95.2 Presence of prosthetic heart valve; Z79.01 Long term (current) 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
CPT/HCPCS: 36415; 85610

== ENCOUNTER → 2022-11-03 | Outpatient (CLI) | payer MEDICARE, BC, SELFPAY ==
--- NOTE | 2022-11-03 14:10 | RAD_ITS ---
STUDY: X-RAY - LEFT ANKLE REASON FOR EXAM: Female, 81 years old. L ankle pain x 1 week post fall, potential hematoma/fracture. sw TECHNIQUE: 4 view(s) of the ankle. COMPARISON: None. FINDINGS: Normal visualized distal tibia and fibula. Normal medial and lateral malleoli. Normal tibiotalar articulation and ankle mortise. Normal visualized talus and calcaneus. The visualized subtalar, talonavicular, calcaneocuboid and tarsal articulations are normal. There is no demonstrated fracture. There is diffuse soft tissue swelling. RAD/Ankle min 3 Views IMPRESSION: Normal x-ray examination of the ankle. Electronically Signed: Huey Diaz MD at 17:41 EDT ,
== END | disposition home or self-care (01) ==
LOC: MTRAD 14:10
PROVIDERS: PCP Family Medicine; Visit Provider Family Medicine
DX: M25.572 Pain in left ankle and joints of left foot (principal)
CPT/HCPCS: 73610

== ENCOUNTER → 2022-12-12 | Outpatient (CLI) | payer MEDICARE, BC, SELFPAY ==
--- NOTE | 2022-12-12 08:19 | BI_ITS ---
MAMMOGRAPHY - UNILATERAL SCREENING: RIGHT BREAST REASON FOR EXAM: Female, 82 years old. Routine annual screening examination (unilateral). PERTINENT HISTORY: Aunt with breast cancer. TECHNIQUE: Digital unilateral breast edda (3D mammographic acquisition) in the CC and MLO projections. 2-D mediolateral oblique (MLO) and craniocaudad (CC) views of both breasts were obtained. CAD: Full Field Digital Mammography with Computer Added Detection was performed. COMPARISON: Comparison is made with prior study December 09, 2021 and November 18, 2020. FINDINGS: Breast Composition: There are scattered areas of fibroglandular density. There are no dominant masses or suspicious calcifications. No other significant abnormalities are identified. There has been no significant change since the prior study. BI/SCREEN MAMM (CAD) W/EDDA UNI R IMPRESSION: Stable unilateral screening mammogram. Yearly follow-up mammogram recommended. (A) ASSESSMENT CATEGORY: BIRADS Category 1: Negative. A letter regarding these results will be sent to the patient by the facility within 30 days. Approximately 10% of breast cancers are not detected by mammography. A normal mammogram should not delay biopsy of a clinically suspicious abnormality. [id number] Electronically Signed: Walter Vickers MD at 9:13 EDT ,
== END | disposition home or self-care (01) ==
LOC: OPBI 08:18
PROVIDERS: PCP Family Medicine; Referring Provider Nurse Practitioner Women's Health; Visit Provider Nurse Practitioner Women's Health
DX: Z12.31 Encounter for screening mammogram for malignant neoplasm of breast (principal)
CPT/HCPCS: 77063; 77067

== ENCOUNTER 2022-12-20 09:02 | Outpatient (RCR) | payer MEDICARE, BC, SELFPAY ==
[2022-11-20 02:47] VITALS: BMI 27.6
[2022-11-22 12:28] LABS: International Normalized Ratio 3.7
[2022-12-06 10:07] LABS: International Normalized Ratio 2.4
[2022-12-20 09:53] LABS: International Normalized Ratio 2.4; Prothrombin Time (Protime)PT. 26.7 SECONDS (11.7-14.9)
== END 2022-12-20 18:00 | disposition home or self-care (01) ==
LOC: LAB 09:02
PROVIDERS: PCP Family Medicine; Referring Provider Nurse Practitioner Family; Visit Provider Nurse Practitioner Family
DX: I48.92 Unspecified atrial flutter (principal); Z95.2 Presence of prosthetic heart valve; Z79.01 Long term (current) 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
CPT/HCPCS: 36415; 85610

== ENCOUNTER 2023-01-17 12:52 | Outpatient (RCR) | payer MEDICARE, BC, SELFPAY ==
[2022-12-20 22:50] VITALS: BMI 27.6
[2023-01-03 12:46] LABS: International Normalized Ratio 2.6; Prothrombin Time (Protime)PT. 28.4 SECONDS (11.7-14.9)
[2023-01-17 13:29] LABS: International Normalized Ratio 2.2; Prothrombin Time (Protime)PT. 24.7 SECONDS (11.7-14.9)
== END 2023-01-19 18:00 | disposition home or self-care (01) ==
LOC: LAB 12:52
PROVIDERS: PCP Family Medicine; Referring Provider Nurse Practitioner Family; Visit Provider Nurse Practitioner Family
DX: I48.92 Unspecified atrial flutter (principal); Z95.2 Presence of prosthetic heart valve; Z79.01 Long term (current) 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
CPT/HCPCS: 36415; 85610

== ENCOUNTER → 2023-01-17 | Outpatient (CLI) | payer MEDICARE, BC, SELFPAY ==
[2023-01-17 14:49] LABS: Anion Gap 3 (5-15); BUN 41 mg/dL (7-18); BUN/Creat Ratio 20.9 RATIO (10-20); Calcium,Total 9.3 mg/dL (8.5-10.1); Chloride 109 mmol/L (98-107); Creatinine, Serum 1.96 mg/dL (0.55-1.02); EST Glomerular Filtration Rate 26 mL/min (>60); Est Glom Filt Rate - Afr Amer 32 mL/min (>60); Glucose 95 mg/dL (74-106); Potassium 3.6 mmol/L (3.5-5.1); Sodium Level 140 mmol/L (136-145)
== END | disposition home or self-care (01) ==
LOC: LAB 13:53
PROVIDERS: PCP Family Medicine; Referring Provider Internal Medicine Cardiovascular Disease; Visit Provider Internal Medicine Cardiovascular Disease
DX: R06.00 Dyspnea, unspecified (principal); I10 Essential (primary) hypertension; E78.5 Hyperlipidemia, unspecified; Z79.01 Long term (current) 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
CPT/HCPCS: 36415; 80048

== ENCOUNTER → 2023-01-26 | Outpatient (CLI) | payer MEDICARE, BC, SELFPAY ==
--- NOTE | 2023-01-27 13:39 | PFTCOMP_ITS ---
COMPLETE PULMONARY FUNCTION TEST INTERPRETATION Brief HPI: Patient is an 82-year-old female, currently under the care of Dr. Santizo, who presents to [facility] for complete pulmonary function tests secondary to diagnosis of dyspnea. Respiratory therapist reports good effort and reproducible results. Interpretation: Forced expiration spirometry shows no large airways obstructive ventilatory defect with an FEV1 of 110% predicted. There is no significant bronchodilator response by strict ATS criteria. Spirograms are of good quality and plateau normally. The respiratory flow volume loop shows a normal pattern. Lung volumes by body plethysmography show a normal total lung capacity at 4.22 L, 92% predicted. All other lung volumes are within normal limits. Diffusion capacity by carbon monoxide is decreased at 52% predicted. The airway resistance is normal. Compared to previous pulmonary function tests from 02/15/2021, there has been no significant change. Impression: Isolated reduction diffusion capacity, but no significant change compared to 2020
== END | disposition home or self-care (01) ==
LOC: PSN 07:53
PROVIDERS: PCP Family Medicine; Referring Provider Internal Medicine Cardiovascular Disease; Visit Provider Internal Medicine Cardiovascular Disease
DX: R06.09 Other forms of dyspnea (principal)
CPT/HCPCS: 94060; 94726; 94729

== ENCOUNTER 2023-02-07 13:17 | Outpatient (RCR) | payer MEDICARE, BC, SELFPAY ==
[2023-01-20 03:16] VITALS: BMI 27.6
[2023-01-24 12:38] LABS: International Normalized Ratio 2.7; Prothrombin Time (Protime)PT. 29.3 SECONDS (11.7-14.9)
[2023-01-24 13:17] LABS: AST(SGOT) 25 U/L (15-37); Alanine Aminotransfer ALT/SGPT 22 U/L (13-56); Thyroid Stim Hormone (TSH) 4.81 uIU/mL (0.358-3.74)
[2023-02-07 13:58] LABS: International Normalized Ratio 2.7; Prothrombin Time (Protime)PT. 29.1 SECONDS (11.7-14.9)
== END 2023-02-19 18:00 | disposition home or self-care (01) ==
LOC: LAB 13:17
PROVIDERS: Internal Medicine Cardiovascular Disease; PCP Family Medicine; Referring Provider Nurse Practitioner Family; Visit Provider Nurse Practitioner Family
DX: I48.92 Unspecified atrial flutter (principal); Z95.2 Presence of prosthetic heart valve; Z79.01 Long term (current) 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; E78.5 Hyperlipidemia, unspecified; R06.00 Dyspnea, unspecified; I10 Essential (primary) hypertension
CPT/HCPCS: 36415; 84443; 84450; 84460; 85610

== ENCOUNTER 2023-03-07 09:13 | Outpatient (RCR) | payer MEDICARE, BC, SELFPAY ==
[2023-02-19 20:53] VITALS: BMI 27.6
[2023-03-07 10:27] LABS: International Normalized Ratio 2.6; Prothrombin Time (Protime)PT. 27.7 SECONDS (11.7-14.9)
== END 2023-03-07 18:00 | disposition home or self-care (01) ==
LOC: LAB 09:13
PROVIDERS: PCP Family Medicine; Referring Provider Nurse Practitioner Family; Visit Provider Nurse Practitioner Family
DX: I48.92 Unspecified atrial flutter (principal); Z95.2 Presence of prosthetic heart valve; Z79.01 Long term (current) 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
CPT/HCPCS: 36415; 85610

== ENCOUNTER 2023-04-05 10:02 | Outpatient (RCR) | payer MEDICARE, BC, SELFPAY ==
[2023-03-22 22:41] VITALS: BMI 27.6
[2023-04-05 11:11] LABS: International Normalized Ratio 2.6; Prothrombin Time (Protime)PT. 28.2 SECONDS (11.7-14.9)
== END 2023-04-20 18:00 | disposition home or self-care (01) ==
LOC: LAB 10:02
PROVIDERS: Physician Assistant Medical; PCP Family Medicine; Referring Provider Nurse Practitioner Family; Visit Provider Nurse Practitioner Family
DX: I48.92 Unspecified atrial flutter (principal); Z95.2 Presence of prosthetic heart valve; Z79.01 Long term (current) 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
CPT/HCPCS: 36415; 85610

== ENCOUNTER 2023-05-02 11:37 | Outpatient (RCR) | payer MEDICARE, BC, SELFPAY ==
[2023-04-20 23:50] VITALS: BMI 27.6
[2023-05-02 16:04] LABS: International Normalized Ratio 2.5; Prothrombin Time (Protime)PT. 26.6 SECONDS (11.7-14.9)
== END 2023-05-20 18:00 | disposition home or self-care (01) ==
LOC: LAB 11:37
PROVIDERS: PCP Family Medicine; Referring Provider Nurse Practitioner Family; Visit Provider Nurse Practitioner Family
DX: I48.92 Unspecified atrial flutter (principal); Z95.2 Presence of prosthetic heart valve; Z79.01 Long term (current) 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
CPT/HCPCS: 36415; 85610

== ENCOUNTER 2023-06-14 11:49 | Outpatient (RCR) | payer MEDICARE, BC, SELFPAY ==
[2023-05-20 22:38] VITALS: BMI 27.6
[2023-05-30 11:27] LABS: International Normalized Ratio 2.2; Prothrombin Time (Protime)PT. 24.4 SECONDS (11.7-14.9)
[2023-06-14 12:49] LABS: International Normalized Ratio 2.3; Prothrombin Time (Protime)PT. 24.8 SECONDS (11.7-14.9)
== END 2023-06-20 23:09 | disposition home or self-care (01) ==
LOC: LAB 11:49
PROVIDERS: PCP Family Medicine; Referring Provider Nurse Practitioner Family; Visit Provider Nurse Practitioner Family
DX: I48.92 Unspecified atrial flutter (principal); Z95.2 Presence of prosthetic heart valve; Z79.01 Long term (current) 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
CPT/HCPCS: 36415; 85610

== ENCOUNTER 2023-06-28 12:39 | Outpatient (RCR) | payer MEDICARE, BC, SELFPAY ==
[2023-06-20 23:10] VITALS: BMI 27.6
[2023-06-28 13:43] LABS: International Normalized Ratio 2.9; Prothrombin Time (Protime)PT. 30.2 SECONDS (11.7-14.9)
== END 2023-06-28 18:00 | disposition home or self-care (01) ==
LOC: LAB 12:39
PROVIDERS: PCP Family Medicine; Referring Provider Nurse Practitioner Family; Visit Provider Nurse Practitioner Family
DX: I48.92 Unspecified atrial flutter (principal); Z95.2 Presence of prosthetic heart valve; Z79.01 Long term (current) 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
CPT/HCPCS: 36415; 85610

== ENCOUNTER → 2023-07-12 | Outpatient (CLI) | payer MEDICARE, BC, SELFPAY | END | disposition home or self-care (01) | LOC: CVS 08:19 | PROVIDERS: PCP Family Medicine; Referring Provider Nurse Practitioner Family; Visit Provider Nurse Practitioner Family | DX: I48.92 Unspecified atrial flutter (principal); R00.0 Tachycardia, unspecified; Z79.899 Other long term (current) drug therapy | CPT/HCPCS: 93225; 93226 ==

== ENCOUNTER 2023-08-01 12:13 | Outpatient (RCR) | payer MEDICARE, BC, SELFPAY ==
[2023-07-24 09:38] VITALS: BMI 27.6
[2023-08-01 12:32] LABS: International Normalized Ratio 3.5; Prothrombin Time (Protime)PT. 34.6 SECONDS (11.7-14.9)
== END 2023-08-01 18:00 | disposition home or self-care (01) ==
LOC: LAB 12:13
PROVIDERS: PCP Family Medicine; Referring Provider Nurse Practitioner Family; Visit Provider Nurse Practitioner Family
DX: I48.92 Unspecified atrial flutter (principal); Z95.2 Presence of prosthetic heart valve; Z79.01 Long term (current) 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
CPT/HCPCS: 36415; 85610

== ENCOUNTER 2023-08-29 11:06 | Outpatient (RCR) | payer MEDICARE, BC, SELFPAY ==
[2023-08-20 22:43] VITALS: BMI 27.6
[2023-08-29 12:30] LABS: International Normalized Ratio 2.7; Prothrombin Time (Protime)PT. 28.3 SECONDS (11.7-14.9)
== END 2023-09-20 18:00 | disposition home or self-care (01) ==
LOC: LAB 11:06
PROVIDERS: PCP Family Medicine; Referring Provider Nurse Practitioner Family; Visit Provider Nurse Practitioner Family
DX: I48.92 Unspecified atrial flutter (principal); Z95.2 Presence of prosthetic heart valve; Z79.01 Long term (current) 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
CPT/HCPCS: 36415; 85610

== ENCOUNTER 2023-10-19 12:27 | Outpatient (RCR) | payer MEDICARE, BC, SELFPAY ==
[2023-09-20 21:49] VITALS: BMI 27.6
[2023-09-26 13:30] LABS: International Normalized Ratio 1.8; Prothrombin Time (Protime)PT. 20.3 SECONDS (11.7-14.9)
[2023-09-28 07:54] LABS: International Normalized Ratio 2.2
[2023-10-05 09:57] LABS: International Normalized Ratio 2.3
[2023-10-19 13:15] LABS: International Normalized Ratio 2.4; Prothrombin Time (Protime)PT. 25.9 SECONDS (11.7-14.9)
== END 2023-10-19 18:00 | disposition home or self-care (01) ==
LOC: LAB 12:27
PROVIDERS: PCP Family Medicine; Referring Provider Nurse Practitioner Family; Visit Provider Nurse Practitioner Family
DX: I48.92 Unspecified atrial flutter (principal); Z95.2 Presence of prosthetic heart valve; Z79.01 Long term (current) 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
CPT/HCPCS: 36415; 85610

== ENCOUNTER 2023-11-02 12:51 | Outpatient (RCR) | payer MEDICARE, BC, SELFPAY ==
[2023-10-22 04:06] VITALS: BMI 27.6
[2023-11-02 13:24] LABS: International Normalized Ratio 2.7; Prothrombin Time (Protime)PT. 28.9 SECONDS (11.7-14.9)
== END 2023-11-02 18:00 | disposition home or self-care (01) ==
LOC: LAB 12:51
PROVIDERS: PCP Family Medicine; Referring Provider Nurse Practitioner Family; Visit Provider Nurse Practitioner Family
DX: I48.92 Unspecified atrial flutter (principal); Z95.2 Presence of prosthetic heart valve; Z79.01 Long term (current) 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
CPT/HCPCS: 36415; 85610

== ENCOUNTER → 2023-12-20 | Outpatient (CLI) | payer MEDICARE, BC, SELFPAY ==
--- NOTE | 2023-12-20 13:08 | BI_ITS ---
MAMMOGRAPHY - BILATERAL SCREENING REASON FOR EXAM: Female, 83 years old. Routine annual screening examination. PERTINENT HISTORY: Aunt with breast cancer. TECHNIQUE: Digital bilateral breast edda (3D mammographic acquisition) in the CC and MLO projections. 2-D mediolateral oblique (MLO) and craniocaudad (CC) views of both breasts were obtained. CAD: Full Field Digital Mammography with Computer Added Detection was performed. COMPARISON: Comparison is made with prior study December 12, 2022 and December 10, 2019. FINDINGS: Breast Composition: There are scattered areas of fibroglandular density. There are no dominant masses or suspicious calcifications. Stable small fat-containing bilateral axillary lymph nodes. No other significant abnormalities are identified. There has been no significant change since the prior study. BI/SCRN MAMM (CAD)W/EDDA BILAT IMPRESSION: Stable bilateral screening mammogram. Yearly follow-up mammogram recommended. (A) ASSESSMENT CATEGORY: BIRADS Category 2: Benign. A letter regarding these results will be sent to the patient by the facility within 30 days. Approximately 10% of breast cancers are not detected by mammography. A normal mammogram should not delay biopsy of a clinically suspicious abnormality. [id number] Electronically Signed: Walter Vickers MD at 14:01 EDT ,
== END | disposition home or self-care (01) ==
LOC: OPBI 13:08
PROVIDERS: PCP Family Medicine; Referring Provider Nurse Practitioner Women's Health; Visit Provider Nurse Practitioner Women's Health
DX: Z12.31 Encounter for screening mammogram for malignant neoplasm of breast (principal)
CPT/HCPCS: 77063; 77067

== ENCOUNTER 2023-12-21 13:04 | Outpatient (RCR) | payer MEDICARE, BC, SELFPAY ==
[2023-11-21 04:11] VITALS: BMI 27.6
[2023-11-23 14:09] LABS: International Normalized Ratio 2.5; Prothrombin Time (Protime)PT. 26.8 SECONDS (11.7-14.9)
[2023-12-21 14:14] LABS: International Normalized Ratio 3.1; Prothrombin Time (Protime)PT. 31.9 SECONDS (11.7-14.9)
== END 2023-12-21 18:00 | disposition home or self-care (01) ==
LOC: LAB 13:04
PROVIDERS: PCP Family Medicine; Referring Provider Nurse Practitioner Family; Visit Provider Nurse Practitioner Family
DX: I48.92 Unspecified atrial flutter (principal); Z95.2 Presence of prosthetic heart valve; Z79.01 Long term (current) 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
CPT/HCPCS: 36415; 85610

== ENCOUNTER → 2023-12-28 | Outpatient (CLI) | payer MEDICARE, BC, SELFPAY ==
[2023-12-28 13:39] LABS: Absolute Lymphocyte Count 1.05 X10^3/uL (0.83-4.51); Absolute Neutrophil Count 4.8 X10^3/uL (2.0-7.7); Basophil# 0.07 X10^3/uL; Eosinophil# 0.32 X10^3/uL; Eosinophils% 4.5 % (0-5); Hematocrit 35.5 % (37-47); Hemoglobin 11.3 g/dL (12.0-15.0); Lymphocyte # 1.05 X10^3/ul (0.83-4.51); Lymphocyte % 14.7 % (19-41); Mean Corp Hgb Conc 31.8 g/dL (32-36); Mean Corpuscular Volume 106.9 fL (81-99); Mean Platelet Vol. 9.5 fl (6.2-12.0); Monocyte# 0.94 X10^3/uL; Monocyte% 13.1 % (0-10); NRBC Flagged by Analyzer 0 % (0-5); Neutrophil # 4.76 X10^3/uL (2.7-7.7); Neutrophil % 66.4 % (47-70); Platelet Count 239 K/mm3 (150-450); RBC Distribution Width CV 15.3 % (11.6-14.6); RBC Distribution Width SD 60.4 fl (35.1-43.9); Red Blood Count 3.32 M/mm3 (4.2-5.4); White Blood Count 7.2 K/mm3 (4.4-11.0)
[2023-12-28 14:00] LABS: BNP,B-Type NATRIURETIC PEPTIDE 620.7 pg/mL (0-100)
[2023-12-28 14:11] LABS: ALB/GLOB Ratio 1.2 RATIO (0.9-2.4); AST(SGOT) 27 U/L (15-37); Alanine Aminotransfer ALT/SGPT 23 U/L (13-56); Albumin, Serum 3.7 g/dL (3.2-5.0); Alkaline Phosphatase 85 U/L (45-117); Anion Gap 4 (5-15); BUN 37 mg/dL (7-18); BUN/Creat Ratio 20.3 RATIO (10-20); Calcium,Total 9.3 mg/dL (8.5-10.1); Chloride 111 mmol/L (98-107); Creatinine, Serum 1.82 mg/dL (0.55-1.02); EST Glomerular Filtration Rate 28 mL/min (>60); Est Glom Filt Rate - Afr Amer 34 mL/min (>60); Globulin 3.2 g/dL (2.2-4.2); Glucose 87 mg/dL (74-106); Magnesium 2.8 mg/dL (1.6-2.6); Potassium 4.6 mmol/L (3.5-5.1); Protein, Total 6.9 g/dL (6.4-8.2); Sodium Level 141 mmol/L (136-145); T4 Free Direct 1.01 ng/dL (0.76-1.46)
== END | disposition home or self-care (01) ==
PROVIDERS: PCP Family Medicine; Referring Provider Nurse Practitioner Family; Visit Provider Nurse Practitioner Family
DX: R06.00 Dyspnea, unspecified (principal); I48.0 Paroxysmal atrial fibrillation
CPT/HCPCS: 36415; 80053; 83735; 83880; 84439; 84443; 85025

== ENCOUNTER → 2024-01-12 | Outpatient (CLI) | payer MEDICARE, BC, SELFPAY ==
--- NOTE | 2024-01-12 08:50 | ECHOD_ITS ---
Reason For Study: SOB Procedure This was a 2D Doppler, Color Flow transthoracic echocardiogram. Exam performed in department. Left Ventricle Normal LV size. Mild assymetric septal hypertrophy. The estimated ejection fraction is 15-20 %. Severe global left ventricular systolic dysfunction. Right Ventricle Normal RV size. Normal systolic function. Atria The left atrium is moderately enlarged. The right atrium is mildly enlarged. Mitral Valve Trivial mitral valve insufficiency. Stable appearing mechanical mitral valve apparatus. Tricuspid Valve Normal tricuspid valve. Mild to moderate (1-2+) tricuspid valve insufficiency. Pulmonary artery systolic pressure is 28 mmHg. Aortic Valve Mild (1+) aortic valve insufficiency. Stable appearing mechanical aortic valve apparatus. Pulmonic Valve Normal pulmonic valve. Mild (1+) pulmonic valve insufficiency. Great Vessels Mildly dilated aortic root. Pericardium/Pleural No pericardial effusion. MMode/2D Measurements & Calculations LVIDd: 5.2 cm IVSd: 1.2 cm LVOT diam: 2.0 cm LVIDs: 4.3 cm LVPWd: 0.93 cm LVOT area: 3.3 cm2 RVDd: 3.6 cm FS: 16.3 % Ao root diam: 4.1 cm LAV(MOD-bp): 110.2 ml LVAd ap4: 29.9 cm2 LAV(MOD-bp) Indexed: 66.9 ml/m2 LVLd ap4: 7.1 cm LAV(MOD-sp2): 100.9 ml EDV(MOD-sp4): 105.6 ml LAV(MOD-sp4): 105.4 ml EDV(sp4-el): 107.2 ml LVAs ap4: 26.7 cm2 LVLs ap4: 6.9 cm ESV(MOD-sp4): 87.1 ml ESV(sp4-el): 88.0 ml EF(MOD-sp4): 17.5 % EF(sp4-el): 17.9 % LVAd ap2: 36.7 cm2 SV(MOD-sp4): 18.5 ml SV(MOD-sp2): 41.6 ml LVLd ap2: 7.8 cm SI(MOD-sp4): 11.2 ml/m2 SI(MOD-sp2): 25.3 ml/m2 EDV(MOD-sp2): 144.9 ml EDV(sp2-el): 145.5 ml LVAs ap2: 30.9 cm2 LVLs ap2: 7.6 cm ESV(MOD-sp2): 103.2 ml ESV(sp2-el): 106.6 ml EF(MOD-sp2): 28.7 % SV(sp4-el): 19.2 ml LA dimension(2D): 4.4 cm LA A4 area: 29.0 cm2 RA A4 area: 23.0 cm2 Doppler Measurements & Calculations MV E max iván: 114.7 cm/sec Lat Peak E' Iván: 7.2 cm/sec Med Peak E' Iván: 3.4 cm/sec E/E' lat: 16.0 E/E' med: 34.2 MV V2 max: 122.5 cm/sec MV P1/2t max iván: 118.6 cm/sec Ao V2 max: 137.5 cm/sec MV max P.0 mmHg MV P1/2t: 61.4 msec Ao max P.6 mmHg MV V2 mean: 82.7 cm/sec MV dec slope: 565.8 cm/sec2 Ao V2 mean: 95.9 cm/sec MV mean P.0 mmHg Ao mean P.4 mmHg MV V2 VTI: 17.4 cm MVA(P1/2t): 3.6 cm2 Ao V2 VTI: 21.0 cm MVA(VTI): 4.1 cm2 AV (velocity ratio): 1.0 CHRISTINA(I,D): 3.4 cm2 CHRISTINA(V,D): 3.2 cm2 LV V1 max: 134.2 cm/sec SV(LVOT): 71.6 ml PA V2 max: 67.4 cm/sec LV V1 max P.2 mmHg PA V2 mean: 44.4 cm/sec LV V1 mean P.1 mmHg LV V1 mean: 95.4 cm/sec LV V1 VTI: 21.9 cm TR max iván: 250.7 cm/sec TR max P.3 mmHg ECHO/Echo Complete Interpretation Summary The estimated ejection fraction is 15-20 %. Severe global left ventricular systolic dysfunction. Mild assymetric septal hypertrophy. The left atrium is moderately enlarged. The right atrium is mildly enlarged. Stable appearing mechanical mitral valve apparatus. Stable appearing mechanical aortic valve apparatus. Mild (1+) aortic valve insufficiency. Mildly dilated aortic root. Compared to prior echo, the LV function has worsened. Ordering Physician: Newton Bush Referring Physician: NURY GARNICA Performed By: Kathi Napier RCS
== END | disposition home or self-care (01) ==
LOC: CVS 08:49
PROVIDERS: PCP Family Medicine; Referring Provider Nurse Practitioner Family; Visit Provider Nurse Practitioner Family
DX: R06.00 Dyspnea, unspecified (principal); I48.0 Paroxysmal atrial fibrillation
CPT/HCPCS: 93225; 93226; 93306

== ENCOUNTER 2024-02-10 01:07 | Emergency (ER) | payer MEDICARE, BC, SELFPAY ==
[2024-02-10 01:08] VITALS: BP 122/92; PULSE 100; RESP 18; TEMP 37.6; O2SAT 96; BMI 25.7
[2024-02-10 01:49] LABS: Absolute Lymphocyte Count 0.69 X10^3/uL (0.83-4.51); Absolute Neutrophil Count 7.7 X10^3/uL (2.0-7.7); Basophil# 0.04 X10^3/uL; Basophil% 0.4 % (0-1); Eosinophil# 0.26 X10^3/uL; Eosinophils% 2.6 % (0-5); Hematocrit 33.5 % (37-47); Lymphocyte # 0.69 X10^3/ul (0.83-4.51); Lymphocyte % 6.9 % (19-41); Mean Corp Hgb Conc 32.8 g/dL (32-36); Mean Corpuscular Hgb 34.1 pg (27.0-32.0); Mean Corpuscular Volume 103.7 fL (81-99); Mean Platelet Vol. 9.7 fl (6.2-12.0); Monocyte# 1.22 X10^3/uL; Monocyte% 12.2 % (0-10); NRBC Flagged by Analyzer 0 % (0-5); Neutrophil # 7.72 X10^3/uL (2.7-7.7); Neutrophil % 77.3 % (47-70); Platelet Count 228 K/mm3 (150-450); RBC Distribution Width CV 14.6 % (11.6-14.6); RBC Distribution Width SD 56.1 fl (35.1-43.9); Red Blood Count 3.23 M/mm3 (4.2-5.4)
--- NOTE | 2024-02-10 01:50 | RAD_ITS ---
INDICATION: cough EXAMINATION/TECHNIQUE: X-RAY - XR Chest 2 Views COMPARISON: Prior study dated: 12/21/2020 FINDINGS: LINES/DEVICES: None. LUNGS: No consolidation. No pneumothorax. MEDIASTINUM: Aorta is atherosclerotic. CARDIAC SILHOUETTE: Enlarged. Stable size. Sternal wires. Valve prosthesis. BONES AND SOFT TISSUES: No acute abnormalities. RAD/Chest PA and Lateral IMPRESSION: No evidence of active intrathoracic disease. Electronically Signed: Estefani Mayes MD at 2:09 EST ,
--- NOTE | 2024-02-10 01:56 | EDS_ITS ---
HPI History of Present Illness Chief Complaint: Cold Sx Informant: patient, spouse/S.O. and family Narrative Narrative: Here with spouse 2 children for evaluation. Nonproductive cough for the past week. Subjective fevers and chills. Increasing dyspnea. No wheeze. No asthma or COPD history. No tobacco history. She is on warfarin history of paroxysmal A-fib and mechanical valve. INR checked today was 3.7. Sick contacts with spouse. She had 1 posttussive emesis today. No hematemesis. No diarrhea. No urinary symptoms. 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 RUIZ (dyspnea on exertion) Lichen sclerosus Cystocele with uterine descensus Shingles Hypersomnia, unspecified Migraines Psoriasis 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 Hyperlipidemia Atrial flutter, paroxysmal 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 Home Medications ?Medication ?Instructions ?Recorded ?Last Taken ?Type aspirin 81 mg chewable tablet 81 mg PO DAILY@0800 15 11/13/20 History ascorbic acid (vitamin C) 1,000 mg 1 g PO DAILY 07/26/18 Unknown History tablet BP Machine and Cuff #1 ea 02/24/21 Unknown Rx acetaminophen 650 mg 1,300 mg PO Q12H 01/03/22 Unknown History tablet,extended release cholecalciferol (vitamin D3) 125 125 mcg PO DAILY 01/03/22 Unknown History mcg (5,000 unit) tablet losartan 25 mg tablet 25 mg PO DAILY #90 tabs 05/02/23 Unknown Rx simvastatin 20 mg tablet 20 mg PO QPM #90 tabs 05/02/23 Unknown Rx enoxaparin 60 mg/0.6 mL 60 mg subcut Q12H PRN 12/28/23 Unknown History subcutaneous syringe warfarin 1 mg tablet 1 mg PO .COMPLEX #180 tabs 12/28/23 Unknown Rx furosemide 20 mg tablet (Lasix) 40 mg (2 x 20 mg) PO DAILY #90 tabs 12/29/23 Unknown Rx metoprolol tartrate 100 mg tablet 100 mg PO BID #180 tabs 01/22/24 Unknown Rx amiodarone 200 mg tablet 200 mg PO QDAY #30 tabs 01/26/24 Unknown Rx Allergy/AdvReac Type Severity Reaction Status Date / Time latex Allergy Itching Verified 02/10/24 01:12 Penicillins Allergy Rash Verified 02/10/24 01:12 Family History Other Adopted Surgical History History of mitral valve replacement with mechanical valve (~07/12/00) History of mechanical aortic valve replacement (~01/20/15) History of surgery on arm History of right and left heart catheterization (12/26/14) History of thoracentesis (02/01/15) Hx of cholecystectomy Right Tibial ORIF History of cardioversion (12/28/18) H/O mitral valve replacement (07/12/00) H/O aortic valve replacement (01/20/15) Social History household members: significant other housing: house current occupational status: retired current occupation: worked at [employer] sexually active: Yes Smoking Status: Never smoker Electronic Cigarette Use: not used alcohol intake: never substance use type: does not use caffeine: Yes what type of physical activity do you participate in: none seatbelt use: sometimes do you feel safe at home: Yes additional social history: - Joey Patient and retired ROS ROS ED Constitutional Constitutional ED: Reports chills and fever(s); Denies sweats ENT ENT ED: Denies sore throat Cardiovascular Cardiovascular: Denies chest pain, leg edema, palpitations or racing heartbeat Respiratory/Chest Respiratory/Chest: Reports cough and dyspnea; Denies dyspnea on exertion Gastrointestinal Gastrointestinal: Reports vomiting; Denies abdominal pain, diarrhea or nausea Genitourinary Genitourinary ED: Denies dysuria, hematuria or urinary frequency Musculoskeletal Musculoskeletal: Denies back pain, extremity pain or neck pain Integumentary Denies rash or wounds Neurologic Neurologic: Denies headache(s), paresthesias or weakness EXAM Physical Exam Const Vital Signs: 02/10/24 01:08 02/10/24 01:12 02/10/24 03:08 Temperature 99.7 F H Temperature Source Oral Pulse Rate 100 90 Respiratory Rate 18 16 Respiratory Effort Normal Respiratory Pattern Normal Blood Pressure 122/92 H 123/74 H Blood Pressure Mean 102 90 Pulse Ox 96 98 Oxygen Delivery Method Room Air Room Air 02/10/24 03:14 Temperature 98.9 F Temperature Source Pulse Rate 93 Respiratory Rate 108 H Respiratory Effort Respiratory Pattern Blood Pressure 123/74 H Blood Pressure Mean 90 Pulse Ox 98 Oxygen Delivery Method Positive well nourished and well developed General Appearance ED: well developed and NAD HEENT Reports moist mucous membranes normocephalic and atraumatic Eyes General Eye ED: Yes normal appearance of both eyes Neck full ROM Chest Wall Chest: Negative for tenderness Resp normal respiratory effort and normal air movement Effort and Inspection: symmetric chest movement; Negative for respiratory distress Cardio regular rate, regular rhythm and no murmurs Peripheral Pulses: pulses 2+ throughout GI normal to inspection, nondistended, normoactive bowel sounds and non-tender Palpation: Negative for guarding or rebound tenderness present Extremity normal to inspection General Extremety ED: Negative for edema or tenderness General Extremity: Negative for edema Neuro oriented x3 and no sensory deficits noted Sensorium / Orientation: awake and alert Skin no rashes or lesions noted and no wounds MDM MDM MDM Narrative Medical decision making narrative: Interventions / MDM: Differential diagnosis: Viral upper respiratory infection, CKD, chronic anticoagulation Diagnosis considered but do not suspect: PE however on chronic anticoagulation reported INR of 3.7 outpatient. My EKG interpretation: N/A Imaging independently reviewed and interpreted by myself: 2 view chest x-ray: No acute process also read by radiology. External documents reviewed: N/A Test considered but not ordered:N/A ED course: Temp of 99.7 on arrival. 96% room air. No respiratory distress. Family concerns with symptoms and underlying health problems. Chest x-ray ordered basic labs ordered COVID flu and RSV ordered. INR reported 3.7 today. Chest x-ray negative. Labs are stable creatinine 2.08. White count normal at 10. COVID, influenza, RSV negative. I discussed viral syndrome with patient and family. Discussed adjunct therapies with vapor rubs and emitted fires. Per spouse primary care office has sent in for cough suppressants to her pharmacy yesterday. Outpatient follow-up with return precautions. All questions were answered. Re-evaluation: stable Disposition discussed with patient/family/significant other: Patient and family Case discussed with consulting clinician: N/A This note was generated with [employer] dictation software. It may contain incorrect words, spelling, and punctuation that were not noted in checking the note before signing. Lab Data Attestation: I reviewed the patient's lab results. Labs: Laboratory Results - last 24 hr 02/10/24 01:43 WBC 10.0 RBC 3.23 L Hgb 11.0 L Hct 33.5 L MCV 103.7 H MCH 34.1 H MCHC 32.8 RDW Std Deviation 56.1 H RDW Coeff of Stefan 14.6 Plt Count 228 MPV 9.7 Immature Gran % (Auto) 0.600 Neut % (Auto) 77.3 H Lymph % (Auto) 6.9 L [place] % (Auto) 12.2 H Eos % (Auto) 2.6 Baso % (Auto) 0.4 Absolute Neuts (auto) 7.7 Absolute Lymphs (auto) 0.69 L Nucleated RBC % 0 Sodium 141 Potassium 3.8 Chloride 110 H Carbon Dioxide 23.0 Anion Gap 7 BUN 47 H Creatinine 2.08 H Estim Creat Clear Calc 19.00 Est GFR (MDRD) Af Amer 29 L Est GFR (MDRD) Non-Af 24 L BUN/Creatinine Ratio 22.6 H Glucose 106 Calcium 9.5 Radiography Diagnostic Testing: Clinical Impression(s) from Imaging Studies Chest X-Ray 02/10/24 01:50 IMPRESSION: No evidence of active intrathoracic disease. Electronically Signed: Estefani Mayes MD at 2:09 EST , Discharge Plan Triage Chief Complaint: Cold Sx ED Provider: Avtar Ervin Dx/Rx/DC Orders Clinical Impression: Viral URI with cough, CKD (chronic kidney disease) Instructions: ED URI, Viral, No Abx (Adult) Prescriptions: No Action ascorbic acid (vitamin C) 1,000 mg tablet 1 g PO DAILY acetaminophen 650 mg tablet extended release 1,300 mg PO Q12H cholecalciferol (vitamin D3) 125 mcg (5,000 unit) tablet 125 mcg PO DAILY enoxaparin 60 mg/0.6 mL syringe 60 mg subcut Q12H PRN aspirin 81 MG tablet,chewable 81 mg PO DAILY@0800 [place] Comments[place] [place] Machine and Cuff See Rx Instructions .Route .MEDSUPPLY Qty: 1 0RF Rx Instructions: Monitor BP and HR losartan 25 mg tablet 25 mg PO DAILY Qty: 90 3RF simvastatin 20 mg tablet 20 mg PO QPM Qty: 90 4RF Rx Instructions: Use acct. number [id number] for proper billing (pt has 2 accounts) warfarin 1 mg tablet 1 mg PO .COMPLEX Qty: 180 3RF Protocol: Dose Management Condition: Monday Dose/Route: 1 mg Instruction: 1 x 1 mg tablet Condition: Monday Dose/Route: 2 mg Instruction: 2 x 1 mg tablets Condition: Monday Dose/Route: 2 mg Instruction: 2 x 1 mg tablets Condition: Monday Dose/Route: 2 mg Instruction: 2 x 1 mg tablets Condition: Dose/Route: 2 mg Instruction: 2 x 1 mg tablets Condition: Monday Dose/Route: 1 mg Instruction: 1 x 1 mg tablet Condition: Monday Dose/Route: 1 mg Instruction: 1 x 1 mg tablet Protocol Text: Adjustment Start Date: Monday02/09/24 INR Value: 3.8 INR Date: 02/09/24 Recheck Date: 02/15/24 Rx Instructions: 1.5 mg (1.5 tablets) every Monday; 2 tablets (2mg) all other days of the week OR DIRECTED; Use acct. number [id number] for proper billing furosemide [Lasix] 20 mg tablet 40 mg PO DAILY Qty: 90 3RF metoprolol tartrate 100 mg tablet 100 mg PO BID Qty: 180 3RF amiodarone 200 mg tablet 200 mg PO QDAY Qty: 30 11RF Primary Care Provider: Mireille Scales Referrals: Mireille Scales MD [Primary Care Provider] - 1 Week Activity Restrictions/Additional Instructions: Chest x-ray negative for any pneumonia findings. Labs normal white count 10. Creatinine 2 today. Continue oral fluids for hydration. COVID, influenza, RSV negative. Discussed using vapor rubs and humidifier to help with cough symptoms. Follow- up with your doctor. Print Language: Greenlandic Disposition Disposition: Home, Self Care Discharge Date/Time: 02/10/24 03:17
[2024-02-10 02:07] LABS: Anion Gap 7 (5-15); BUN 47 mg/dL (7-18); BUN/Creat Ratio 22.6 RATIO (10-20); Calcium,Total 9.5 mg/dL (8.5-10.1); Chloride 110 mmol/L (98-107); Creatinine, Serum 2.08 mg/dL (0.55-1.02); EST Glomerular Filtration Rate 24 mL/min (>60); Est Glom Filt Rate - Afr Amer 29 mL/min (>60); Glucose 106 mg/dL (74-106); Potassium 3.8 mmol/L (3.5-5.1); Sodium Level 141 mmol/L (136-145)
[2024-02-10 03:08] VITALS: BP 123/74; PULSE 90; RESP 16; O2SAT 98
[2024-02-10 03:14] VITALS: BP 123/74; PULSE 93; RESP 108; TEMP 37.2; O2SAT 98
== END 2024-02-10 03:17 | disposition home or self-care (01) ==
PROVIDERS: Emergency Provider Emergency Medicine; PCP Family Medicine; Visit Provider Emergency Medicine
DX: J06.9 Acute upper respiratory infection, unspecified (principal); N18.9 Chronic kidney disease, unspecified
CPT/HCPCS: 71046; 80048; 85025; 87631; 99283; A4216

== ENCOUNTER 2024-02-19 13:03 | Outpatient (RCR) | payer MEDICARE, BC, SELFPAY ==
[2023-12-21 20:51] VITALS: BMI 27.6
[2024-01-25 13:02] LABS: International Normalized Ratio 2.7; Prothrombin Time (Protime)PT. 28.4 SECONDS (11.7-14.9)
[2024-02-01 12:13] LABS: International Normalized Ratio 2.3; Prothrombin Time (Protime)PT. 25.4 SECONDS (11.7-14.9)
[2024-02-09 12:21] LABS: International Normalized Ratio 3.8; Prothrombin Time (Protime)PT. 36.8 SECONDS (11.7-14.9)
[2024-02-15 13:28] LABS: International Normalized Ratio 4.4; Prothrombin Time (Protime)PT. 41.5 SECONDS (11.7-14.9)
[2024-02-19 14:52] LABS: International Normalized Ratio 4.7; Prothrombin Time (Protime)PT. 45.4 SECONDS (11.7-14.9)
== END 2024-02-19 18:00 | disposition home or self-care (01) ==
LOC: LAB 13:03
PROVIDERS: Internal Medicine Cardiovascular Disease; PCP Family Medicine; Referring Provider Nurse Practitioner Family; Visit Provider Nurse Practitioner Family
DX: I48.92 Unspecified atrial flutter (principal); Z95.2 Presence of prosthetic heart valve; Z79.01 Long term (current) 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

== ENCOUNTER 2024-03-14 12:54 | Outpatient (RCR) | payer MEDICARE, BC, SELFPAY ==
[2024-02-21 04:26] VITALS: BMI 27.6
[2024-02-22 08:31] LABS: International Normalized Ratio 1.8
[2024-02-23 11:23] LABS: International Normalized Ratio 1.7; Prothrombin Time (Protime)PT. 20.1 SECONDS (11.7-14.9)
[2024-02-26 11:39] LABS: International Normalized Ratio 2.2; Prothrombin Time (Protime)PT. 24.9 SECONDS (11.7-14.9)
[2024-03-04 12:54] LABS: Prothrombin Time (Protime)PT. 47.1 SECONDS (11.7-14.9)
[2024-03-04 13:14] LABS: International Normalized Ratio 4.9
[2024-03-08 13:34] LABS: Prothrombin Time (Protime)PT. 42.8 SECONDS (11.7-14.9)
[2024-03-08 13:58] LABS: International Normalized Ratio 4.4
[2024-03-14 13:34] LABS: International Normalized Ratio 3.1; Prothrombin Time (Protime)PT. 32.6 SECONDS (11.7-14.9)
== END 2024-03-14 18:00 | disposition home or self-care (01) ==
LOC: LAB 12:54
PROVIDERS: PCP Family Medicine; Referring Provider Nurse Practitioner Family; Visit Provider Nurse Practitioner Family
DX: Z95.2 Presence of prosthetic heart valve; Z79.01 Long term (current) 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; I48.19 Other persistent atrial fibrillation
CPT/HCPCS: 36415; 85610

== ENCOUNTER 2024-04-15 11:57 | Outpatient (RCR) | payer MEDICARE, BC, SELFPAY ==
[2024-03-23 02:00] VITALS: BMI 27.6
[2024-03-28 14:40] LABS: Prothrombin Time (Protime)PT. 23.2 SECONDS (11.7-14.9)
[2024-04-01 12:31] LABS: International Normalized Ratio 2.7; Prothrombin Time (Protime)PT. 28.9 SECONDS (11.7-14.9)
[2024-04-15 12:44] LABS: International Normalized Ratio 3.2; Prothrombin Time (Protime)PT. 33.2 SECONDS (11.7-14.9)
== END 2024-04-19 18:00 | disposition home or self-care (01) ==
LOC: LAB 11:57
PROVIDERS: PCP Family Medicine; Referring Provider Nurse Practitioner Family; Visit Provider Nurse Practitioner Family
DX: I48.92 Unspecified atrial flutter (principal); Z95.2 Presence of prosthetic heart valve; Z79.01 Long term (current) 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
CPT/HCPCS: 36415; 85610

== ENCOUNTER 2024-05-16 13:15 | Outpatient (RCR) | payer MEDICARE, BC, SELFPAY ==
[2024-04-20 04:52] VITALS: BMI 27.6
[2024-05-16 13:48] LABS: International Normalized Ratio 4.1; Prothrombin Time (Protime)PT. 40.6 SECONDS (11.7-14.9)
== END 2024-05-16 18:00 | disposition home or self-care (01) ==
LOC: LAB 13:15
PROVIDERS: PCP Family Medicine; Referring Provider Nurse Practitioner Family; Visit Provider Nurse Practitioner Family
DX: I48.19 Other persistent atrial fibrillation (principal); Z95.2 Presence of prosthetic heart valve; Z79.01 Long term (current) 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
CPT/HCPCS: 36415; 85610

== ENCOUNTER → 2024-05-16 | Outpatient (CLI) | payer MEDICARE, BC, SELFPAY ==
--- NOTE | 2024-05-16 13:30 | ECHOL_ITS ---
Reason For Study Reason For Study: CHF Procedure This was a limited 2D transthoracic echocardiogram. Exam performed in department. Left Ventricle Normal LV size. Mild concentric left ventricular hypertrophy. The left ventricular ejection fraction is 40 %. There is mild to moderate global hypokinesis of the left ventricle. Right Ventricle Normal RV size. Normal systolic function. Atria The left atrium is moderately enlarged. Normal right atrium. Mitral Valve Stable appearing mechanical mitral valve apparatus. Aortic Valve Bioprosthetic aortic valve. Pulmonic Valve Normal pulmonic valve. Pericardium/Pleural No pericardial effusion. MMode/2D Measurements & Calculations LVIDd: 5.4 cm IVSd: 1.2 cm LVOT diam: 2.0 cm LVIDs: 4.0 cm LVPWd: 1.4 cm LVOT area: 3.0 cm2 FS: 25.9 % LAV(MOD-bp): 81.8 ml SV(MOD-sp4): 57.9 ml LVAd ap4: 35.4 cm2 LAV(MOD-bp) Indexed: 51.4 ml/m2 LVLd ap4: 8.1 cm SI(MOD-sp4): 36.4 ml/m2 LAV(MOD-sp2): 76.8 ml EDV(MOD-sp4): 130.0 ml LAV(MOD-sp4): 81.4 ml EDV(sp4-el): 131.0 ml LVAs ap4: 24.2 cm2 LVLs ap4: 7.1 cm ESV(MOD-sp4): 72.1 ml ESV(sp4-el): 70.8 ml EF(MOD-sp4): 44.5 % EF(sp4-el): 46.0 % SV(sp4-el): 60.2 ml LA A4 area: 25.4 cm2 RA A4 area: 17.0 cm2 ECHO/Echo, Limited Study Interpretation Summary Normal LV size. Mild concentric left ventricular hypertrophy. The left ventricular ejection fraction is 40 %. There is mild to moderate global hypokinesis of the left ventricle. Stable appearing mechanical mitral valve apparatus. Bioprosthetic aortic valve. Ordering Physician: Newton Bush Referring Physician: Newton Bush Performed By: Kathi Napier RCS
== END | disposition home or self-care (01) ==
LOC: CVS 13:29
PROVIDERS: PCP Family Medicine; Referring Provider Nurse Practitioner Family; Visit Provider Nurse Practitioner Family
DX: I42.8 Other cardiomyopathies (principal)
CPT/HCPCS: 93308

== ENCOUNTER 2024-06-07 10:25 | Outpatient (RCR) | payer MEDICARE, BC, SELFPAY ==
[2024-05-20 22:15] VITALS: BMI 27.6
[2024-05-24 14:07] LABS: International Normalized Ratio 3.3; Prothrombin Time (Protime)PT. 34.1 SECONDS (11.7-14.9)
[2024-06-07 11:20] LABS: International Normalized Ratio 3.4; Prothrombin Time (Protime)PT. 35.4 SECONDS (11.7-14.9)
== END 2024-06-19 18:00 | disposition home or self-care (01) ==
LOC: LAB 10:25
PROVIDERS: PCP Family Medicine; Referring Provider Nurse Practitioner Family; Visit Provider Nurse Practitioner Family
DX: Z95.2 Presence of prosthetic heart valve; Z79.01 Long term (current) 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; I48.19 Other persistent atrial fibrillation
CPT/HCPCS: 36415; 85610

== ENCOUNTER 2024-07-12 13:00 | Outpatient (RCR) | payer MEDICARE, BC, SELFPAY ==
[2024-06-19 21:34] VITALS: BMI 27.6
[2024-06-28 11:24] LABS: International Normalized Ratio 2.8; Prothrombin Time (Protime)PT. 30.2 SECONDS (11.7-14.9)
[2024-06-28 12:11] LABS: Absolute Lymphocyte Count 0.83 X10^3/uL (0.83-4.51); Absolute Neutrophil Count 5.4 X10^3/uL (2.0-7.7); Basophil% 1.2 % (0-1); Eosinophil# 0.39 X10^3/uL; Eosinophils% 4.8 % (0-5); Hematocrit 34.3 % (37-47); Hemoglobin 11.3 g/dL (12.0-15.0); Lymphocyte # 0.83 X10^3/ul (0.83-4.51); Lymphocyte % 10.2 % (19-41); Mean Corp Hgb Conc 32.9 g/dL (32-36); Mean Corpuscular Hgb 33.7 pg (27.0-32.0); Mean Corpuscular Volume 102.4 fL (81-99); Mean Platelet Vol. 9.6 fl (6.2-12.0); Monocyte# 1.37 X10^3/uL; Monocyte% 16.8 % (0-10); NRBC Flagged by Analyzer 0 % (0-5); Neutrophil # 5.43 X10^3/uL (2.7-7.7); Neutrophil % 66.5 % (47-70); Platelet Count 281 K/mm3 (150-450); RBC Distribution Width CV 14.2 % (11.6-14.6); RBC Distribution Width SD 53.1 fl (35.1-43.9); Red Blood Count 3.35 M/mm3 (4.2-5.4); White Blood Count 8.2 K/mm3 (4.4-11.0)
[2024-06-28 13:00] LABS: Anion Gap 14 (5-15); BUN 59 mg/dL (4-19); BUN/Creat Ratio 21.5 RATIO (10-20); Calcium,Total 10.1 mg/dL (7.6-11.0); Carbon Dioxide 21.4 mmol/L (21.0-32.0); Chloride 104 mmol/L (98-108); Creatinine, Serum 2.75 mg/dL (0.70-1.20); EST Glomerular Filtration Rate 17 (>60); Glucose 83 mg/dL (70-99); Pro- Brain NATRIURETIC PEPTIDE 4501 pg/mL (<=1800); Sodium Level 139 mmol/L (133-145)
[2024-07-05 12:55] LABS: International Normalized Ratio 3.9; Prothrombin Time (Protime)PT. 38.7 SECONDS (11.7-14.9)
[2024-07-05 13:24] LABS: Anion Gap 12 (5-15); BUN 62 mg/dL (4-19); BUN/Creat Ratio 22.3 RATIO (10-20); Calcium,Total 11.2 mg/dL (7.6-11.0); Carbon Dioxide 26.5 mmol/L (21.0-32.0); Chloride 100 mmol/L (98-108); Creatinine, Serum 2.79 mg/dL (0.70-1.20); EST Glomerular Filtration Rate 16 (>60); Glucose 93 mg/dL (70-99); Potassium 4.2 mmol/L (3.3-5.1); Sodium Level 139 mmol/L (133-145)
[2024-07-12 13:52] LABS: Prothrombin Time (Protime)PT. 32.1 SECONDS (11.7-14.9)
== END 2024-07-12 18:00 | disposition home or self-care (01) ==
LOC: LAB 13:00
PROVIDERS: PCP Family Medicine; Referring Provider Nurse Practitioner Gerontology; Visit Provider Nurse Practitioner Family
DX: I48.19 Other persistent atrial fibrillation (principal); Z95.2 Presence of prosthetic heart valve; Z79.01 Long term (current) 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; R06.09 Other forms of dyspnea
CPT/HCPCS: 36415; 80048; 83880; 85025; 85610

== ENCOUNTER → 2024-07-19 | Outpatient (CLI) | payer MEDICARE, BC, SELFPAY ==
[2024-07-19 14:44] LABS: Anion Gap 11 (5-15); BUN 50 mg/dL (4-19); BUN/Creat Ratio 19.2 RATIO (10-20); Calcium,Total 12.3 mg/dL (7.6-11.0); Carbon Dioxide 23.4 mmol/L (21.0-32.0); Chloride 106 mmol/L (98-108); EST Glomerular Filtration Rate 18 (>60); Glucose 88 mg/dL (70-99); Potassium 4.1 mmol/L (3.3-5.1); Sodium Level 140 mmol/L (133-145)
== END | disposition home or self-care (01) ==
LOC: LAB 13:18
PROVIDERS: PCP Family Medicine; Referring Provider Nurse Practitioner Gerontology; Visit Provider Nurse Practitioner Gerontology
DX: N28.9 Disorder of kidney and ureter, unspecified (principal)
CPT/HCPCS: 36415; 80048

== ENCOUNTER 2024-08-13 12:27 | Outpatient (RCR) | payer MEDICARE, BC, SELFPAY ==
[2024-07-20 22:10] VITALS: BMI 27.6
[2024-07-26 10:24] LABS: Prothrombin Time (Protime)PT. 47.4 SECONDS (11.7-14.9)
[2024-08-02 13:42] LABS: International Normalized Ratio 3.9; Prothrombin Time (Protime)PT. 39.4 SECONDS (11.7-14.9)
[2024-08-09 12:49] LABS: Prothrombin Time (Protime)PT. 41.6 SECONDS (11.7-14.9)
[2024-08-09 12:55] LABS: International Normalized Ratio 4.2
[2024-08-13 14:13] LABS: International Normalized Ratio 3.7; Prothrombin Time (Protime)PT. 37.5 SECONDS (11.7-14.9)
== END 2024-08-13 18:00 | disposition home or self-care (01) ==
LOC: LAB 12:27
PROVIDERS: Internal Medicine Cardiovascular Disease; PCP Family Medicine; Referring Provider Nurse Practitioner Gerontology; Visit Provider Nurse Practitioner Family
DX: I48.92 Unspecified atrial flutter (principal); Z95.2 Presence of prosthetic heart valve; Z79.01 Long term (current) 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
CPT/HCPCS: 36415; 85610

== ENCOUNTER 2024-09-03 11:05 | Outpatient (RCR) | payer MEDICARE, BC, SELFPAY ==
[2024-08-21 13:28] LABS: Hematocrit 32.8 % (37-47); Hemoglobin 10.6 g/dL (12.0-15.0); Immature Granulocytes Count 0.070 X10^3/uL (0.0-0.0); Mean Corp Hgb Conc 32.3 g/dL (32-36); Mean Corpuscular Volume 104.8 fL (81-99); Mean Platelet Vol. 9.6 fl (6.2-12.0); NRBC Flagged by Analyzer 0 % (0-5); Platelet Count 269 K/mm3 (150-450); RBC Distribution Width CV 15.9 % (11.6-14.6); RBC Distribution Width SD 61.3 fl (35.1-43.9); Red Blood Count 3.13 M/mm3 (4.2-5.4); White Blood Count 10.1 K/mm3 (4.4-11.0)
[2024-08-21 13:39] LABS: Prothrombin Time (Protime)PT. 28.0 SECONDS (11.7-14.9)
[2024-08-21 14:03] LABS: Anion Gap 11 (5-15); BUN 65 mg/dL (4-19); BUN/Creat Ratio 17.5 RATIO (10-20); Calcium,Total 10.3 mg/dL (7.6-11.0); Carbon Dioxide 24.2 mmol/L (21.0-32.0); Chloride 107 mmol/L (98-108); Glucose 89 mg/dL (70-99); Potassium 4.5 mmol/L (3.3-5.1); Pro- Brain NATRIURETIC PEPTIDE 2111 pg/mL (<=1800)
[2024-08-26 13:12] LABS: Prothrombin Time (Protime)PT. 26.2 SECONDS (11.7-14.9)
[2024-08-26 13:29] LABS: AST(SGOT) 33 U/L (<=31); Alanine Aminotransfer ALT/SGPT 17 U/L (<=34); Albumin, Serum 4.2 g/dL (3.4-4.8); Alkaline Phosphatase 90 U/L (35-104); Anion Gap 14 (5-15); BUN 52 mg/dL (4-19); BUN/Creat Ratio 17.5 RATIO (10-20); Calcium,Total 10.6 mg/dL (7.6-11.0); Carbon Dioxide 21.3 mmol/L (21.0-32.0); Chloride 104 mmol/L (98-108); Globulin 3.0 g/dL (2.2-4.2); Glucose 97 mg/dL (70-99); Magnesium 2.6 mg/dL (1.5-2.2); Potassium 4.2 mmol/L (3.3-5.1)
[2024-09-03 11:49] LABS: Prothrombin Time (Protime)PT. 28.2 SECONDS (11.7-14.9)
== END 2024-09-19 21:11 | disposition home or self-care (01) ==
LOC: LAB 11:05
PROVIDERS: PCP Family Medicine; Referring Provider Nurse Practitioner Gerontology; Visit Provider Nurse Practitioner Family
DX: Z79.01 Long term (current) 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; I48.92 Unspecified atrial flutter; Z95.2 Presence of prosthetic heart valve; N28.9 Disorder of kidney and ureter, unspecified; R06.09 Other forms of dyspnea; Z79.899 Other long term (current) drug therapy
CPT/HCPCS: 36415; 80048; 80053; 83735; 83880; 84443; 85025; 85610

== ENCOUNTER → 2024-09-10 | Outpatient (CLI) | payer MEDICARE, BC, SELFPAY ==
--- NOTE | 2024-09-10 06:51 | ECHOL_ITS ---
Reason For Study : Re evaluate EF Procedure This was a limited 2D transthoracic echocardiogram. Exam performed in department. Left Ventricle Normal LV size. Moderate concentric left ventricular hypertrophy. The left ventricular ejection fraction is 30 %. There is moderate to severe global hypokinesis of the left ventricle. Right Ventricle Normal RV size. Normal systolic function. Mitral Valve Stable appearing mechanical mitral valve apparatus. Tricuspid Valve Normal tricuspid valve. Moderate (2+) tricuspid valve insufficiency. Pulmonary artery systolic pressure is 56 mmHg. Aortic Valve Bioprosthetic aortic valve. Great Vessels Normal aortic root. Pericardium/Pleural No pericardial effusion. MMode/2D Measurements & Calculations LVIDd: 4.5 cm IVSd: 1.4 cm LVAd ap4: 29.8 cm2 LVIDs: 4.0 cm LVPWd: 1.4 cm LVLd ap4: 7.6 cm FS: 11.3 % EDV(MOD-sp4): 95.9 ml EDV(sp4-el): 99.2 ml LVAs ap4: 23.5 cm2 LVLs ap4: 7.0 cm ESV(MOD-sp4): 66.3 ml ESV(sp4-el): 67.0 ml EF(MOD-sp4): 30.9 % EF(sp4-el): 32.4 % SV(MOD-sp4): 29.6 ml SV(MOD-sp2): 21.6 ml LVAd ap2: 25.1 cm2 LVLd ap2: 7.1 cm SI(MOD-sp4): 18.6 ml/m2 SI(MOD-sp2): 13.6 ml/m2 EDV(MOD-sp2): 74.0 ml EDV(sp2-el): 75.7 ml LVAs ap2: 20.9 cm2 LVLs ap2: 6.8 cm ESV(MOD-sp2): 52.4 ml ESV(sp2-el): 54.6 ml EF(MOD-sp2): 29.2 % SV(sp4-el): 32.1 ml Doppler Measurements & Calculations TR max paris: 356.1 cm/sec TR max P.7 mmHg ECHO/Echo, Limited Study Interpretation Summary Normal LV size. The left ventricular ejection fraction is 30 %. Moderate concentric left ventricular hypertrophy. There is moderate to severe global hypokinesis of the left ventricle. Pulmonary artery systolic pressure is 56 mmHg. Ordering Physician: Newton Bush Referring Physician: Mireille Scales Performed By: Bella Bush RVT, RDCS and Student
--- OUTSIDE RECORDS SUMMARY | 2024-09-10 06:55 | XMS RPT_ITS | CCD ---
Author Organization [facility] ion [facility] Care Team Providers Care Bridge Painter Name Role Phone Vi HILL, Scarlett Rojas Unavailable Unavailable SERGIO Hooker, Kylah Goldberg Unavailable Unavailabl livier Hooker RN, Kylah M Unavailable Unavailabl livier Hooker RN, Kylah M Unavailable Unavailabl e [facility] Nurse Unavailable Unavailable SERGIO Hooker, Kylah M Unavailable UnavailScarlett Ventura RN A Unavailable Unavailable SERGIO Hooker, Kylah M Unavailable Unavailabl livier Hooker RN, Kylah M Unavailable Unavailabl livier Lebron RN, Scarlett A Unavailable Unavailable SERGIO Hooker, Kylah M Unavailable Unavailabl livier Hooker RN, Kylah M Unavailable Unavailabl e DeFinis, Harumi Y Unavailable Unavailable DeFinis, Harumi Y Unavailable Unavailable DeFinis, Harumi Y Unavailable Unavailable Hassan, Chetna Unavailable Unavailable BETH CONDON (GLAZE HANDLER) Unavailable Unavailable Hassan, Chetna Unavailable Unavailable SERGIO Hooker, Kylah M Unavailable Unavailjeb Hooker RN, Kylah M Unavailable Unavailabl livier Hooker RN, Kylah M Unavailable Unavailabl livier Hooker RN, Kylah M Unavailable Unavailabl e Care Physician, No Primary Primary Care Provider Unavailable Dr. oJey Martines Referring Provider Dr. Joey Martines Other Provider Dr. Jhon Butterfield Attending Provider Dr. Alfa Freedman Referring Provider Roof GLAZE HANDLER, GLAZE HANDLER-Leyda Fowler Attending Provider Care Physician, No Primary Primary Care Provider Unavailable Dr. Alfa Oakes Primary Care Provider [phone] Dr. Alfa Oakes Attending Provider Dr. Alfa Oakes Referring Provider Dr. Marian Jackson Attending Provider Care Physician, No Primary Referring Provider Un available Roseanna GLAZE HANDLER, GLAZE HANDLER-C Beth Attending Provider Dr. Marian Jackson Primary Care Provider Dr. Marian Jackson Referring Provider [phone] Dr. Hossein Lee Attending Provider Dr. Alfa Oakes Primary Care Provider Dr. Alfa Oakes Primary Care Provider Dr. Alfa Oakes Referring Provider 1([facility])[phone] Dr. Marian Jackson Attending Provider 1([facility]) Care Physician, No Primary Referring Provider Un available [place] GLAZE HANDLER, GLAZE HANDLER-C Beth Attending Provider Dr. Marian Jackson Primary Care Provider Dr. Marian Jackson Referring Provider 1([facility]) Dr. Hossein Lee Attending Provider 1([facility])[phone] Roof GLAZE HANDLER, GLAZE HANDLER-C Alfa Fowler Attending Provider 1([facility])[phone] Dr. Reggie Garcia Attending Provider 1([facility])[phone] Marian Jackson Attending Provider 1([facility]) [phone] [facility] GLAZE HANDLER, GLAZE HANDLER-C Alfa Janeth Referring Provider 1([facility])[phone] Dr. Tunde Monet Attending Provider 1([facility])[phone] Dr. Alex Sol Attending Provider 1([facility])[phone] Marian Jackson Primary Care Provider Care Physician, No Primary Referring Provider Un available Dr. Marian Jackson Primary Care Provider Dr. Marian Jackson Referring Provider [phone] Dr. Marian Jackson Attending Provider [phone] Dr. Marian Jackson Primary Care Provider Dr. Marian Jackson Referring Provider [phone] Dr. Joey Martines Attending Provider FELIPA James Referring Provider Dr. Marian Jackson Primary Care Provider Dr. Marian Jackson Attending Provider [phone] Dr. Marian Jackson Referring Provider [phone] Dr. Joey Martines Attending Provider [phone] FELIPA James Referring Provider Roof GLAZE HANDLER, GLAZE HANDLER-Leyda Fowler Attending Provider Dr. Tunde Monet Attending Provider [phone] Dr. Alex Sol Attending Provider [phone] Dr. Marian Jackson Primary Care Provider Dr. Marian Jackson Referring Provider [phone] Dr. Joey Martines Attending Provider [phone] Dr. Marian Jackson Primary Care Provider Roof GLAZE HANDLER, GLAZE HANDLER-Leyda Fowler Attending Provider Dr. Marian Jackson Primary Care Provider Dr. Marian Jackson Attending Provider [phone] Care Physician, No Primary Referring Provider Un available Roof GLAZE HANDLER, GLAZE HANDLER-Leyda Fowler Attending Provider Dr. Marian Jackson Primary Care Provider Dr. Marian Jackson Referring Provider [phone] [place] [facility] GLAZE HANDLER, GLAZE HANDLER-Leyda De La Paz Attending Provider DO Dee Azevedo Primary Care Provider Care Physician, No Primary Referring Provider Un available Roof GLAZE HANDLER, GLAZE HANDLER-Leyda Fowler Attending Provider Dr. Marian Jackson Primary Care Provider Dr. Marian Jackson Referring Provider Roseanna GLAZE HANDLER, GLAZE HANDLER-C Beth Attending Provider [phone] DO Dee Azevedo Primary Care Provider DO Dee Azevedo Referring Provider Sukhdev, Dr. Montero Attending Provider Sukhdev, Dr. Montero Referring Provider Sukhdev, Dr. Montero Other Provider Dr. Vlad Orellana Attending Provider DO Dee Azevedo Primary Care Provider DO Dee Azevedo Primary Care Provider Sukhdev, Dr. Montero Referring Provider Sukhdev, Dr. Montero Other Provider Dr. Vlad Orellana Attending Provider Nahun GORE, Mireille Primary Care Provider [phone] Nahun GORE, Mireille Referring Provider [phone] Alfa Spears Attending Provider Dr. Avtar Ervin DO Attending Provider Dr. Avtar Ervin DO Emergency Provider Roof Alfa BERGER Referring Provider Dr. Kylah Santizo MD Other Provider Becca Azevedo DO Primary Care Provider Ebenezer GORE, Dr. Johnson Attending Provider NAHUN GORE, MIREILLE Primary Care Physician [phone] MIREILLE GARNICA MD Primary Care Unavailable LINA ALCANTARA DO Consulting Unavailable JAIME GORE, EMMANUEL Rojas Admitting Unavailable JAIME GORE, EMMANUEL Rojas Attending Unavailable MIREILLE GARNICA MD Primary Care Unavailable JAIME GORE, EMMANUEL Rojas Attending Unavailable Nahun MD, Chalon Primary Care Provider Nahun GORE, Chalon Referring Provider [phone] Roof GLAZE HANDLER-C, Alfa H Attending Provider [phone] Roof GLAZE HANDLER-C, Alfa H Referring Provider [phone] Sukhdev GORE, Dr. Montero Other Provider [phone] Louie GLAZE HANDLER-C, Cortez Attending Provider [phone] Louie GLAZE HANDLER-C, Cortez Referring Provider [phone] Nahun GORE, [facility] Primary Care Provider [phone] Nahun GORE, Mireille Referring Provider [phone] Roof GLAZE HANDLER-C, Alfa Fowler Attending Provider [phone] Roof GLAZE HANDLER-C, Alfa H Referring Provider [phone] Sukhdev GORE, Dr. Montero Other Provider [phone] Colleen Alegria Attending Unavailable Nahun, Chalon Primary Care Unavailable Alex Sol Attending Unavailable Anhun, Chalon Primary Care Unavailable Roof GLAZE HANDLER, Alfa Fowler Attending Unavailable Roof GLAZE HANDLER, Alfa Fowler Referring Unavailable Sukhdev, Yklah Consulting Unavailable Nahun, Chalon Primary Care Unavailable Roof GLAZE HANDLER, Alfa Fowler Referring Unavailable Roof GLAZE HANDLER, Alfa Fowler Attending Unavailable Nahun, Chalon Primary Care Unavailable Nahun, Chalon Primary Care Unavailable Roof GLAZE HANDLER, Alfa Fowler Attending Unavailable Louie GLAZE HANDLER, Cortez Referring Unavailable Sukhdev, Kylah Consulting Unavailable Roof GLAZE HANDLER, Alfa Fowler Attending Unavailable Nahun, Chalon Referring Unavailable Nahun, Chalon Primary Care Unavailable Roof GLAZE HANDLER, Alfa Fowler Attending Unavailable Nahun, Chalon Referring Unavailable Nahun, Chalon Primary Care Unavailable Roof GLAZE HANDLER, Alfa Fowler Attending Unavailable Nahun, Chalon Primary Care Unavailable Nahun, Chalon Referring Unavailable Nahun, Chalon Primary Care Unavailable Louie GLAZE HANDLER, Cortez Attending Unavailable Nahun, Chalon Referring Unavailable Roof GLAZE HANDLER, Alfa H Referring Unavailable Roof GLAZE HANDLER, Alfa Fowler Attending Unavailable Nahun, Chalon Primary Care Unavailable Nahun, Chalon Primary Care Unavailable Roof GLAZE HANDLER, Alfa Fowler Attending Unavailable Louie GLAZE HANDLER, Cortez Referring Unavailable Sukhdev, Kylah Consulting Unavailable Roberto Carlos VSC, Becca Primary Care Unavailable Roof GLAZE HANDLER, Alfa H Referring Unavailable Roof GLAZE HANDLER, Alfa Fowler Attending Unavailable Sukhdev, Kylah Consulting Unavailable Roberto Carlos VSC, Becca Primary Care Unavailable Roof GLAZE HANDLER, Alfa H Referring Unavailable Roof GLAZE HANDLER, Alfa H Attending Unavailable Sukhdev, Kylah Consulting Unavailable Roof GLAZE HANDLER, Alfa H Referring Unavailable Roof GLAZE HANDLER, Alfa H Attending Unavailable Nahun, Chalon Primary Care Unavailable Roberto Carlos VSC, Becca Primary Care Unavailable Roof GLAZE HANDLER, Alfa H Referring Unavailable Roof GLAZE HANDLER, Alfa H Attending Unavailable Sukhdev, Kylah Consulting Unavailable Roberto Carlos VSC, Becca Primary Care Unavailable Roseanna GLAZE HANDLER, Beth Attending Unavailable [place] GLAZE HANDLER, Beth Referring Unavailable Roof GLAZE HANDLER, Alfa H Referring Unavailable Roof GLAZE HANDLER, Alfa H Attending Unavailable Nahun, Chalon Primary Care Unavailable Roberto Carlos VSC, Becca Primary Care Unavailable Roof GLAZE HANDLER, Alfa H Referring Unavailable Roof GLAZE HANDLER, Alfa H Attending Unavailable Sukhdev, Kylah Consulting Unavailable Nahun, Chalon Primary Care Unavailable Roof GLAZE HANDLER, Alfa H Attending Unavailable Louie GLAZE HANDLER, Cortez Referring Unavailable Sukhdev, Kylah Consulting Unavailable Roof GLAZE HANDLER, Alfa H Referring Unavailable Roof GLAZE HANDLER, Alfa H Attending Unavailable Nahun, Chalon Primary Care Unavailable Sukhdev, Kylah Consulting Unavailable Nahun, Chalon Primary Care Unavailable Louie GLAZE HANDLER, Cortez Referring Unavailable Louie GLAZE HANDLER, Cortez Attending Unavailable Roberto Carlos VSC, Becca Referring Unavailable Roof GLAZE HANDLER, Alfa H Attending Unavailable Nahun, Chalon Primary Care Unavailable Roof GLAZE HANDLER, Alfa H Attending Unavailable Nahun, Chalon Primary Care Unavailable Nahun, Chalon Referring Unavailable Roof GLAZE HANDLER, Alfa H Referring Unavailable Roof GLAZE HANDLER, Alfa H Attending Unavailable Nahun, Chalon Primary Care Unavailable Sukhdev, Kylah Consulting Unavailable Roof GLAZE HANDLER, Alfa H Referring Unavailable Roof GLAZE HANDLER, Alfa H Attending Unavailable Sukhdev, Kylah Consulting Unavailable Nahun, Chalon Primary Care Unavailable Avtar Ervin Attending Unavailable Nahun, Chalon Primary Care Unavailable Roof GLAZE HANDLER, Alfa H Attending Unavailable Nahun, Chalon Referring Unavailable Nahun, Chalon Primary Care Unavailable Allergies Allergy Classification Reported Allergen(s) Allergy Type Date of Onset Reaction(s) Facility (20 sources) atorvastatin drug allergy 6 myalgias [facility] Work Phone: (20 sources) Penicillins (Antibiotic) drug allergy 1 Hives [facility] Work Phone: (1 source) ampicillin; 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: [AMPICILLIN] Drug Allergy 6 AOF [facility] Repository (20 sources) Latex; 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: [LATEX] Propensity to adverse reactions to drug (disorder) 6 Eruption of skin (disorder) [facility] Repository (20 sources) Penicillins; 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: [PENICILLINS] Propensity to adverse reactions to drug (disorder) 6 AOF, Rash [facility] Repository (6 sources) Amiodarone Drug Allergy 1 shortness of breath with senior care use [facility] Work Phone: (2 sources) Penicillin; 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: [penicillins] Drug Allergy Unknown [facility] Medications Current Medications Medication Drug Class(es) Dates Sig (Normalized) Sig (Original) 8 hr acetaminophen 650 mg extended release oral tablet (20 sources) Start: 06-17-2024 Tylenol 8 HR Arthritis Pain 650 mg oral tablet, extended release Dose : 1,300 mg = 2 tab(s), Oral, BID Start Date: 06/17/24 Status: Ordered Repeat number: 1 Start: 01-03-2022 take 2 tablets by mo uth every twelve hours Acetaminophen 650 mg tablet extended release Active 1300 mg PO Q12H January 03, 2022 1:00am Start: 01-03-2022 take 1300 mg by mout h every twelve hours Acetaminophen Active 1300 MG PO Q12H January 03, 2022 1:00am Start: 07-30-2015 End: 01-03-2022 take 1 tablet by mouth every six hours as needed for pain Acetaminophen 500 MG tablet Discontinued 500 mg PO EVERY 6 HOURS NEEDED as needed for Pain May 25, 2016 12:00am January 03, 2022 12:37pm Start: 07-30-2015 TYLENOL 325 MG TABS as needed ACETAMINOPHEN [id number] Scarlett Lebron RN amiodarone hydrochloride 200 mg oral tablet (20 sources) Antiarrhythmic Start: 01-26-2024 take 1 tablet by mouth once daily Amiodarone 200 mg tablet Active 200 mg PO daily 30 January 26, 2024 1:00am Start: 05-02-2023 End: 07-24-2023 take 2 tablets by mouth once daily Amiodarone 200 mg tablet Discontinued 100 mg PO DAILY 45 3 May 02, 2023 3:10pm July 24, 2023 11:05am Use acct. number [id number] for proper billing (pt has 2 accounts) Start: 05-02-2023 Amiodarone Act jolie 100 MG PO DAILY 45 May 02, 2023 3:10pm Use acct. number [id number] for proper billing (pt has 2 accounts) Start: 01-19-2022 End: 05-02-2023 Amiodarone 200 mg tablet Discontinued 100 mg PO DAILY 45 March 16, 2022 11:55am May 02, 2023 3:14pm Order Number: [id number] Start: 01-19-2022 End: 05-02-2023 take 100 mg by mouth once daily Amiodarone Discontinue d 100 MG PO DAILY 45 March 16, 2022 11:55am May 02, 2023 3:14pm Order Number: [id number] Start: 11-23-2018 End: 01-19-2022 take 1 tablet by mouth once daily Amiodarone 200 mg tablet Discontinued 200 mg PO DAILY 90 4 March 18, 2021 2:48pm June 28, 2021 10:35am Start: 07-07-2017 End: 07-26-2018 Amiodarone (Pacerone) 200 mg tablet Discontinued 100 mg PO .COMPLEX 45 3 July 26, 2018 11:46am July 26, 2018 12:19pm Bill 's 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 [employer] 100 mg PO daily: NEEDS PACERONE NELLY, pt cannot tolerate generic Start: 07-07-2017 End: 07-26-2018 take 100 mg by mouth once daily Amiodarone Discontinue d 100 MG PO .COMPLEX 1 July 07, 2017 12:50pm July 26, 2018 11:54am 100 mg PO daily: NEEDS PACERONE NELLY, pt cannot tolerate generic Start: 06-01-2015 End: 07-07-2017 take 1 tablet by mouth once daily Amiodarone 200 mg tablet Discontinued 200 mg PO .COMPLEX 90 3 June 28, 2017 10:47am July 07, 2017 12:50pm 200 mg PO daily: NEEDS PACERONE NELLY, pt cannot tolerate generic Start: 06-01-2015 AMIODARONE HCL 200 MG TABS Two tablets by mouth three times daily for five days then AMIODARONE HCL [id number] Kylah Hooker RN ascorbic acid 1000 mg oral tablet (20 sources) Vitamin C Start: 07-26-2018 take 1 g by mouth once daily Ascorbic Acid (Vitamin C) 1,000 mg tablet Active 1 g PO DAILY July 26, 2018 12:00am Start: 07-26-2018 take 1 g by mouth once daily A scorbic Acid (Vitamin C) Active 1 GM PO DAILY July 26, 2018 12:00am aspirin 81 mg chewable tablet (20 sources) Platelet Aggregation Inhibitor, Nonsteroidal Anti-inflammatory Drug Start: 08-12-2014 take 1 tablet by mouth once daily Aspirin 81 MG tablet,chewable Active 81 mg PO DAILY@0800 August 12, 2014 12:00am Start: 12-10-2007 take 1 tablet by derrick th once daily ECOTRIN LOW STRENGTH 81 MG TBEC One tablet by mouth daily ASPIRIN [id number] Denisemichael Resendez Start: 12-10-2007 take 1 tablet by derrick th once daily ECOTRIN LOW STRENGTH 81 MG TBEC One tablet by mouth daily ASPIRIN [id number] Kylah Hooker RN Aspirin EC 81 mg oral delaye d release tablet (2 sources) Start: 06-17-2024 Aspirin EC 81 mg oral delayed release tablet Dose : 81 mg = 1 tab(s), Oral, qDay Start Date: 06/17/24 Status: Ordered Repeat number: 1 BP Machine and Cuff (20 sources) Start: 02-24-2021 BP Machine and Cuff Active 0 .Route .MEDSUPPLY 1 0 February 24, 2021 1:04pm 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 Monitor BP and HR Start: 02-24-2021 BP Machine and Cuff Active 0 .Route .MEDSUPPLY February 24, 2021 12:04pm Monitor BP and HR Start: 02-24-2021 BP Machine and Cuff Active 0 .Route .MEDSUPPLY 1 February 24, 2021 1:04pm Monitor BP and HR Start: 02-22-2021 End: 02-24-2021 BP Machine and Cuff Disconti nued 0 .Route .MEDSUPPLY 1 0 February 22, 2021 5:23pm February 24, 2021 1:04pm 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 Monitor BP and HR Start: 02-22-2021 End: 02-24-2021 BP Machine and Cuff Disconti nued 0 .Route .MEDSUPPLY 1 February 22, 2021 4:23pm February 24, 2021 12:04pm Monitor BP and HR Start: 02-22-2021 End: 02-24-2021 BP Machine and Cuff Disconti nued 0 .Route .MEDSUPPLY 1 February 22, 2021 5:23pm February 24, 2021 1:04pm Monitor BP and HR Start: 02-22-2021 End: 02-22-2021 BP Machine and Cuff Disconti nued 0 .Route .MEDSUPPLY 1 February 22, 2021 5:21pm February 22, 2021 5:23pm Monitor BP and HR Start: 02-22-2021 End: 02-22-2021 BP Machine and Cuff Disconti nued 0 .Route .MEDSUPPLY 1 February 22, 2021 1:00am February 22, 2021 5:23pm 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 Monitor BP and HR Start: 02-22-2021 End: 02-22-2021 BP Machine and Cuff Disconti nued 0 .Route .MEDSUPPLY 1 February 22, 2021 12:00am February 22, 2021 4:23pm Monitor BP and HR Start: 02-22-2021 End: 02-22-2021 BP Machine and Cuff Disconti nued 0 .Route .MEDSUPPLY 1 February 22, 2021 1:00am February 22, 2021 5:23pm Monitor BP and HR cholecalciferol 0.125 mg oral capsule (20 sources) Vitamin D Start: 05-09-2024 cholecalcifero l 125 mcg (5000 intl units) oral capsule Dose : 125 mcg = 1 cap(s), Oral, qDay, 0 Refill(s) Start Date: 05/09/24 Status: Ordered Repeat number: 1 Start: 01-03-2022 take 1 tablet by derrick th once daily Cholecalciferol (Vitamin D3) 125 mcg (5,000 unit) tablet Active 125 ug PO DAILY January 03, 2022 1:00am Start: 07-26-2018 End: 09-28-2021 take 1 tablet by mouth twice daily Cholecalciferol (Vitamin D3) 1,000 unit tablet Discontinued 1000 U PO TWICE A DAY July 26, 2018 12:00am September 28, 2021 10:00am 0.6 ml enoxaparin sodium 100 mg/ml prefilled syringe (20 sources) Low Molecular Weight Heparin Start: 02-22-2024 Enoxaparin 60 mg/0.6 mL syringe Active 60 mg SC .COMPLEX as needed for Bridging 07 23February 22, 2024 10:20am 60 mg subcutaneously every 12 hours for low INR bridging: patient has TWO mechanical heart valves PRN; Start: 09-26-2023 End: 02-22-2024 Enoxaparin 60 mg/0.6 mL syri nge Discontinued 60 mg SC Q12H as needed December 28, 2023 12:41pm February 22, 2024 10:22am Start: 01-22-2016 End: 05-02-2016 ENOXAPARIN SODIUM 60 MG/0.6M L SOLN inject subcu twice daily on Monday01/25/16 for surgery on Monday01/26/16 and then postop as directed ENOXAPARIN SODIUM [id number] Reed Monet MD Start: 07-30-2015 End: 08-11-2015 LOVENOX 60 MG/0.6ML SOLN Pt actually taking 70 mg sc twice daily until INR it therapeutic ENOXAPARIN SODIUM [id number] Kylah Hooker RN Start: 07-30-2015 End: 08-11-2015 LOVENOX 60 MG/0.6ML SOLN Pt actually taking 70 mg sc twice daily until INR it therapeutic ENOXAPARIN SODIUM [id number] Kylah Hooker RN Start: 07-30-2015 LOVENOX 60 MG/ 0.6ML SOLN Pt actually taking 70 mg sc twice daily until INR it therapeutic ENOXAPARIN SODIUM [id number] Reed Monet MD Start: 07-30-2015 End: 08-11-2015 LOVENOX 60 MG/0.6ML SOLN Pt actually taking 70 mg sc twice daily until INR it therapeutic ENOXAPARIN SODIUM [id number] Kylah Hooker RN Start: 07-30-2015 LOVENOX 60 MG/ 0.6ML SOLN Pt actually taking 70 mg sc twice daily until INR it therapeutic ENOXAPARIN SODIUM [id number] Reed Monet MD Start: 12-16-2014 LOVENOX 80 MG/ 0.8ML SOLN one injection twice daily as directed ENOXAPARIN SODIUM [id number] Reed Monet MD Start: 12-16-2014 LOVENOX 80 MG/ 0.8ML SOLN one injection twice daily as directed ENOXAPARIN SODIUM [id number] Kylah Hooker RN Start: 12-16-2014 End: 02-09-2015 LOVENOX 80 MG/0.8ML SOLN one injection twice daily as directed ENOXAPARIN SODIUM [id number] Reed Monet MD Start: 12-16-2014 LOVENOX 80 MG/ 0.8ML SOLN one injection twice daily as directed ENOXAPARIN SODIUM [id number] Reed Monet MD Start: 12-16-2014 LOVENOX 80 MG/ 0.8ML SOLN one injection twice daily as directed ENOXAPARIN SODIUM [id number] Kylah Hooker RN Start: 12-16-2014 End: 02-09-2015 LOVENOX 80 MG/0.8ML SOLN one injection twice daily as directed ENOXAPARIN SODIUM [id number] Reed Monet MD Start: 01-27-2014 End: 02-09-2015 LOVENOX 80 MG/0.8ML SOLN one injection twice daily as directed ENOXAPARIN SODIUM [id number] Reed Monet MD Start: 01-27-2014 take 1 tablet by derrick th twice daily LOVENOX 80 MG/0.8ML SOLN One tablet by mouth twice daily ENOXAPARIN SODIUM [id number] Kylah Hooker RN Start: 01-27-2014 End: 12-16-2014 LOVENOX 80 MG/0.8ML SOLN One subcutaneous injection twice daily. ENOXAPARIN SODIUM [id number] Reed Monet MD Start: 01-27-2014 LOVENOX 80 MG/ 0.8ML SOLN One subcutaneous injection twice daily. ENOXAPARIN SODIUM [id number] Reed Monet MD Start: 01-27-2014 take 1 tablet by derrick th twice daily LOVENOX 80 MG/0.8ML SOLN One tablet by mouth twice daily ENOXAPARIN SODIUM [id number] Kylah Hooker RN Start: 01-27-2014 End: 12-16-2014 LOVENOX 80 MG/0.8ML SOLN One subcutaneous injection twice daily. ENOXAPARIN SODIUM [id number] Reed Monet MD Start: 01-27-2014 LOVENOX 80 MG/ 0.8ML SOLN One subcutaneous injection twice daily. ENOXAPARIN SODIUM [id number] Reed Monet MD furosemide 40 mg oral tablet (20 sources) Loop Diuretic Start: 03-29-2024 Furosemide 40 mg tablet Active 40 mg PO .COMPLEX 90 March 29, 2024 1:00am 40 mg orally DAILY: Pharmacy Please use account [id number]; Start: 12-29-2023 End: 03-29-2024 take 2 tablets by mouth once daily Furosemide (Lasix) 20 mg tablet Discontinued 40 mg PO DAILY December 29, 2023 12:01pm March 29, 2024 12:05pm Start: 06-19-2017 End: 12-29-2023 take 1 tablet by mouth once daily Furosemide (Lasix) 20 mg tablet Discontinued 20 mg PO DAILY May 02, 2023 3:10pm December 29, 2023 12:02pm Start: 12-12-2016 take 1 tablet by derrick th once daily LASIX 20 MG TABS One tablet by mouth daily FUROSEMIDE [id number] Reed Monet MD Vitamin C 250 mg oral tablet (2 sources) Start: 06-17-2024 Vitamin C 250 mg oral tablet Dose : 500 mg = 2 tab(s), Oral, qDay Start Date: 06/17/24 Status: Ordered Repeat number: 1 warfarin sodium 1 mg oral tablet (20 sources) Vitamin K Antagonist Start: 05-20-2024 End: 05-21-2024 take 1.5 mg by mouth once daily Warfarin 1 mg tablet Active 1 mg PO .COMPLEX 180 3 May 21, 2024 9:49am 1.5 mg (1.5 tablets) every day; OR DIRECTED; Use acct. number [id number] for proper billing Please contact the information source for Protocol details. Start: 05-09-2024 warfarin 1 mg oral tablet Dose : 1.5 mg = 1.5 tab(s), Oral, qDay, 0 Refill(s) Start Date: 05/09/24 Status: Ordered Repeat number: 1 Start: 12-28-2023 End: 05-20-2024 take 2 tablets by mouth every week Warfarin 1 mg tablet Discontinued 1 mg PO .COMPLEX 180 3 December 28, 2023 1:56pm May 20, 2024 3:20pm 1.5 mg (1.5 tablets) every Monday; 2 tablets (2mg) all other days of the week OR DIRECTED; Use acct. number [id number] for proper billing Please contact the information source for Protocol details. Start: 09-28-2021 End: 05-02-2023 take 1.5 mg by mouth once daily Warfarin Discontinued 1.5 MG PO .COMPLEX 120 March 16, 2022 11:57am May 02, 2023 3:13pm 1.5 mg orally; 1.5 mg daily or as directed; Order Number: [id number] Start: 09-28-2021 End: 12-28-2023 Warfarin 1 mg tablet Discont inued 1 mg PO .COMPLEX 135 3 May 02, 2023 3:13pm December 28, 2023 1:57pm 1 mg orally 1.5 mg (1.5 tablets) every day except 2 tablets (2mg) on Tuesdays; OR DIRECTED; Use acct. number [id number] for proper billing (pt has 2 accounts) Please contact the information source for Protocol details. Start: 04-22-2020 End: 05-02-2023 take 1.5 mg by mouth once daily Warfarin 1 mg tablet Discontinued 1 mg PO DAILY 135 4 March 18, 2021 2:47pm September 28, 2021 10:03am Pt agrees to generic:aware brand no longer made 1.5 mg daily or as directed Please contact the information source for Protocol details. Start: 09-26-2019 End: 04-22-2020 Warfarin 3 mg tablet Discont inued 3 mg PO .COMPLEX 90 3 April 22, 2020 2:05pm April 22, 2020 2:08pm pt aware Name brand no longer made 3 mg PO 1.5 mg daily or as directed; Please contact the information source for Protocol details. Start: 09-23-2019 End: 04-22-2020 Warfarin 1 mg tablet Discont inued 1 mg PO .COMPLEX 180 3 April 15, 2020 2:26pm April 22, 2020 2:08pm Pt agrees to generic:aware brand no longer made 1 mg PO 1.5 mg daily except on Wednesdays, take 3mg or as directed Please contact the information source for Protocol details. Start: 09-11-2019 End: 09-23-2019 take 1.5 mg by mouth every month Warfarin (Coumadin) 1 mg tablet Discontinued 1.5 mg PO .COMPLEX 180 3 September 11, 2019 12:23pm September 23, 2019 10:36am 1.5 mg on ANDRADE, MO, TU, TH, FR, SA 3 mg on WE Please contact the information source for Protocol details. Start: 06-28-2017 End: 09-11-2019 Warfarin (Coumadin) 1 mg tab let Discontinued 1.5 mg PO .COMPLEX December 29, 2017 3:20pm July 26, 2018 11:54am 1.5 mg PO 5XW: Coumadin must be NELLY, pt cannot take generic Please contact the information source for Protocol details. Start: 06-28-2017 End: 09-23-2019 take 1 tablet by mouth every month Warfarin 3 mg tablet Discontinued 3 mg PO .COMPLEX 48 3 September 18, 2019 12:02pm September 23, 2019 10:39am Coumadin 3 mg (0.5 Tab) on ANDRADE, MO, TU, TH, FR, SA Coumadin 3 mg (1 Tab) on WE Please contact the information source for Protocol details. Start: 06-14-2017 End: 06-28-2017 take 1.5 mg by mouth five times weekly Warfarin (Coumadin) 1 mg tablet Discontinued 1.5 mg PO 5 times per week 45 0 June 28, 2017 10:14am June 28, 2017 10:54am Start: 05-25-2016 End: 06-14-2017 Warfarin 3 MG tablet Discont inued 3 mg PO DIRECTED May 25, 2016 12:00am June 14, 2017 6:39pm Please contact the information source for Protocol details. Start: 08-10-2015 COUMADIN 3 MG TABS Take as directed: 3.5 mg daily WARFARIN SODIUM [id number] Chante Paige RN Start: 07-23-2015 End: 06-19-2017 take 1 mg by mouth once daily Warfarin 2 MG tablet Dis continued 1 mg PO DAILY July 23, 2015 12:00am June 19, 2017 1:20pm Please contact the information source for Protocol details. Start: 07-23-2015 End: 06-19-2017 take 1 mg by mouth once daily Warfarin Discontinued 1 MG PO DAILY July 23, 2015 12:00am June 19, 2017 1:20pm Start: 04-02-2013 COUMADIN 1 MG TABS NELLY take as directed: 1.5mg x3 days a week and 3mg x 4 days a week WARFARIN SODIUM [id number] Reed Monet MD Start: 11-23-2012 COUMADIN 1 MG TABS 3.5 mg daily four days per week; take 4 mg the other 3 days per week NELLY WARFARIN SODIUM [id number] Reed Monet MD Start: 11-23-2012 COUMADIN 3 MG TABS 3.5 mg daily four days per week; take 4 mg the other 3 days per week WARFARIN SODIUM [id number] Reed Monet MD Start: 08-01-2012 COUMADIN 1 MG TABS 3.5 mg every day: use with 2 mg tablets to = 3.5 NELLY WARFARIN SODIUM [id number] Alex Sol MD Start: 05-02-2011 End: 06-19-2015 COUMADIN 2 MG TABS 3 tablets by mouth Monday, 2 tablets by mouth Monday thru Monday in the [id number] generic WARFARIN SODIUM [id number] Kylah Hooker RN Start: 04-20-2010 End: 09-18-2019 take 1 tablet by mouth two times weekly Warfarin (Coumadin) 3 mg tablet Discontinued 3 mg PO TWICE A WEEK 30 0 June 28, 2017 10:11am June 28, 2017 10:54am Start: 04-20-2010 COUMADIN 1 MG TABS take as directed WARFARIN SODIUM [id number] Kylah Hooker RN Start: 04-20-2010 End: 07-30-2015 COUMADIN 4 MG TABS One table t by mouth four days a week and one and one half tablet three days a week. Take as directed WARFARIN SODIUM [id number] Reed Monet MD Start: 04-20-2010 End: 01-18-2016 take 1 tablet by mouth once daily COUMADIN 4 MG TABS NELLY One tablet by mouth daily WARFARIN SODIUM [id number] Reed Monet MD Completed/Discontinued Medications Medication Drug Class(es) Dates Sig (Normalized) Sig (Original) atorvastatin 80 mg oral tablet (20 sources) HMG-CoA Reductase Inhibitor Start: 04-20-2010 End: 06-19-2015 take 1 tablet by mouth once daily LIPITOR 80 MG TABS One tablet by mouth daily NELLY ATORVASTATIN CALCIUM [id number] Reed Monet MD calcium carbonate / vitamin D (20 sources) Start: 07-24-2007 End: 01-29-2013 take 1 tablet by mouth twice daily CALCIUM CARBONATE-VITAMIN D 600-125 MG-UNIT TABS One tablet by mouth twice daily CALCIUM CARBONATE-VITAMIN D [id number] Reed Monet MD Start: 07-24-2007 take 1 tablet by derrick th twice daily CALCIUM CARBONATE-VITAMIN D 600-125 MG-UNIT TABS One tablet by mouth twice daily CALCIUM CARBONATE-VITAMIN D [id number] Denise Resendez Start: 07-24-2007 End: 01-29-2013 take 1 tablet by mouth twice daily CALCIUM CARBONATE-VITAMIN D 600-125 MG-UNIT TABS One tablet by mouth twice daily CALCIUM CARBONATE-VITAMIN D [id number] Reed Monet MD Start: 07-24-2007 take 1 tablet by derrick th twice daily CALCIUM CARBONATE-VITAMIN D 600-125 MG-UNIT TABS One tablet by mouth twice daily CALCIUM CARBONATE-VITAMIN D [id number] Denise Resendez clobetasol propionate 0.0005 mg/mg topical ointment (20 sources) Corticosteroid Start: 11-09-2020 End: 09-28-2021 Clobetasol 0.05 % ointment Discontinued 1 NMA TOPICAL .COMPLEX 15 November 09, 2020 12:00am September 28, 2021 10:00am 1 applic topical apply bid X 2 weeks, daily X 2 weeks then prn. Small amount and massge in; Start: 10-24-2019 End: 02-20-2020 Clobetasol 0.05 % cream Disc ontinued 1 NMA TOPICAL .COMPLEX 15 October 24, 2019 12:00am February 20, 2020 11:34am 1 applic TOPICAL apply thin layer as directed bid X 2 weeks then daily X 2 weeks; apply thin layer; massage in to cover area Start: 01-29-2013 CLOBEX SPRAY L IQD take as directed CLOBETASOL PROPIONATE LIQD [id number] Reed Monet MD Start: 01-29-2013 End: 01-27-2014 CLOBEX SPRAY LIQD take as di rected CLOBETASOL PROPIONATE LIQD [id number] Reed Monet MD Start: 01-29-2013 CLOBEX SPRAY L IQD take as directed CLOBETASOL PROPIONATE LIQD [id number] Reed Monet MD Start: 01-29-2013 End: 01-27-2014 CLOBEX SPRAY LIQD take as di rected CLOBETASOL PROPIONATE LIQD [id number] Reed Monet MD desonide 0.5 mg/ml topical cream (20 sources) Corticosteroid Start: 01-07-2002 End: 01-29-2013 DESOWEN CREAM W/CETAPHIL LOT 0.05 % KIT Take as directed DESONIDE CREA-MOISTURIZING LOT [id number] Reed Monet MD Start: 01-07-2002 End: 01-29-2013 DESOWEN CREAM W/CETAPHIL LOT 0.05 % KIT Take as directed DESONIDE CREA-MOISTURIZING LOT [id number] Reed Monet MD Start: 01-07-2002 DESOWEN CREAM W/CETAPHIL LOT 0.05 % KIT Take as directed DESONIDE CREA-MOISTURIZING LOT [id number] Denise Resendez oxyquinoline sulfate 0.74975 mg/mg / sodium dodecyl sulfate 0.0001 mg/mg vaginal gel (20 sources) Start: 11-02-2020 End: 09-28-2021 Oxyquinoline-Sod.Lauryl Sulf at (Trimo-Jacinto Jelly) 0.025-0.01 % gel Discontinued 0.025 NMA VAGINAL every 2 weeks November 02, 2020 12:00am September 28, 2021 10:00am Start: 11-02-2020 End: 09-28-2021 Oxyquinoline-Sod.Lauryl Sulf at (Trimo-Jacinto Jelly) 0.025-0.01 % gel Discontinued 0.025 EACH VAGINAL every 2 weeks November 02, 2020 12:00am September 28, 2021 10:00am estrogens, conjugated (fci) 0.625 mg/ml vaginal cream (20 sources) Estrogen Start: 04-03-2019 End: 02-20-2020 Conjugated Estrogens (Premarin) 0.625 mg/gram cream Discontinued 0.625 mg VAGINAL DAILY April 03, 2019 1:00am February 20, 2020 11:34am off 5 days; repeat cycle hydroCHLOROthiazide 12.5 mg oral tablet (20 sources) Thiazide Diuretic Start: 01-27-2014 End: 07-30-2015 take 1 tablet by mouth once daily HYDROCHLOROTHIAZIDE 12.5 MG TABS One tablet by mouth daily HYDROCHLOROTHIAZIDE [id number] Scarlett Lebron RN ketoconazole 20 mg/ml medicated shampoo (20 sources) Azole Antifungal Start: 01-07-2002 End: 01-29-2013 NIZORAL 2 % SHAM Take as directed KETOCONAZOLE [id number] Denise Resendez Start: 01-07-2002 NIZORAL 2 % SH AM Take as directed KETOCONAZOLE [id number] Denise Resendez Start: 01-07-2002 End: 01-29-2013 NIZORAL 2 % SHAM Take as dir ected KETOCONAZOLE [id number] Reed Monet MD LACTOBACILLUS CAPS (20 sources) Start: 12-16-2014 End: 02-09-2015 take 1 tablet by mouth once daily ACIDOPHILUS CAPS One tablet by mouth daily LACTOBACILLUS CAPS [id number] Reed Monet MD Start: 12-16-2014 take 1 tablet by derrick th once daily ACIDOPHILUS CAPS One tablet by mouth daily LACTOBACILLUS CAPS [id number] Reed Monet MD Start: 12-16-2014 take 1 tablet by derrick th once daily ACIDOPHILUS CAPS One tablet by mouth daily LACTOBACILLUS CAPS [id number] Reed Monet MD Start: 12-16-2014 End: 02-09-2015 take 1 tablet by mouth once daily ACIDOPHILUS CAPS One tablet by mouth daily LACTOBACILLUS CAPS [id number] Reed Monet MD LACTOBACILLUS CAPS (10 sources) Start: 12-16-2014 take 1 tablet by mouth once daily ACIDOPHILUS CAPS One tablet by mouth daily LACTOBACILLUS CAPS [id number] Reed Monet MD Start: 12-16-2014 End: 02-09-2015 take 1 tablet by mouth once daily ACIDOPHILUS CAPS One tablet by mouth daily LACTOBACILLUS CAPS [id number] Reed Monet MD Start: 12-16-2014 take 1 tablet by derrick th once daily ACIDOPHILUS CAPS One tablet by mouth daily LACTOBACILLUS CAPS [id number] Reed Monet MD Start: 12-16-2014 End: 02-09-2015 take 1 tablet by mouth once daily ACIDOPHILUS CAPS One tablet by mouth daily LACTOBACILLUS CAPS [id number] Reed Monet MD lisinopril 2.5 mg oral tablet (20 sources) Angiotensin Converting Enzyme Inhibitor Start: 04-20-2010 End: 02-09-2015 ZESTRIL 2.5 MG TABS on hold post AVR LISINOPRIL [id number] Reed Monet MD losartan potassium 25 mg oral tablet (20 sources) Angiotensin 2 Receptor Eloy Start: 01-17-2023 End: 03-29-2024 take 1 tablet by mouth once daily Losartan 25 mg tablet Discontinued 25 mg PO DAILY 90 May 02, 2023 3:11pm March 29, 2024 12:09pm Start: 01-17-2023 End: 02-06-2023 Losartan 25 mg tablet Discon tinued 25 mg PO DAILY 30 0 January 17, 2023 1:00am February 06, 2023 12:50pm Pt waiting to see response before 90 day RX lysine 500 mg oral tablet (20 sources) Start: 07-26-2018 End: 02-28-2019 take 1 tablet by mouth twice daily Lysine 500 mg tablet Discontinued 500 mg PO TWICE A DAY July 26, 2018 11:44am February 28, 2019 12:06pm Start: 12-22-2017 End: 07-26-2018 take 1 tablet by mouth once daily Lysine 500 mg tablet Discontinued 500 mg PO DAILY December 22, 2017 12:00am July 26, 2018 11:46am metoprolol tartrate 50 mg oral tablet (20 sources) beta-Adrenergic Eloy Start: 05-07-2024 End: 05-13-2024 take 1 tablet by mouth twice daily Metoprolol Tartrate 50 mg tablet Discontinued 50 mg PO TWICE A DAY 180 May 07, 2024 2:39pm May 13, 2024 3:02pm Start: 01-22-2024 End: 05-07-2024 take 1 tablet by mouth twice daily Metoprolol Tartrate 100 mg tablet Discontinued 100 mg PO TWICE A DAY 180 January 22, 2024 1:00am May 07, 2024 2:40pm Start: 01-15-2024 End: 01-22-2024 take 2 tablets by mouth twice daily Metoprolol Tartrate 50 mg tablet Discontinued 50 mg PO .COMPLEX 180 January 15, 2024 5:00pm January 22, 2024 12:03pm 50 mg orally twice a day, this is a dose increase; Use acct. number [id number] for proper billing (pt has 2 accounts); Start: 09-26-2023 End: 01-15-2024 take 2 tablets by mouth twice daily Metoprolol Tartrate 25 mg tablet Discontinued 37.5 mg PO .COMPLEX 270 September 26, 2023 1:46pm January 15, 2024 5:01pm 37.5 mg orally twice a day, this is a dose increase; Use acct. number [id number] for proper billing (pt has 2 accounts) Start: 08-07-2023 End: 09-26-2023 Metoprolol Tartrate 25 mg ta blet Discontinued 37.5 mg PO TWICE A DAY 270 3 September 26, 2023 1:44pm September 26, 2023 1:47pm this is a dose increase Start: 08-01-2023 End: 08-07-2023 take 1 tablet by mouth twice daily Metoprolol Tartrate 25 mg tablet Discontinued 25 mg PO TWICE A DAY 180 August 01, 2023 12:00am August 07, 2023 12:08pm Start: 07-24-2023 End: 08-01-2023 take 1 tablet by mouth twice daily Metoprolol Succinate 25 mg tablet extended release 24 hr Discontinued 25 mg PO TWICE A DAY 180 July 24, 2023 11:10am August 01, 2023 3:52pm Start: 07-05-2023 End: 07-24-2023 take 1 tablet by mouth every twenty-four hours at bedtime Metoprolol Succinate 25 mg tablet extended release 24 hr Discontinued 25 mg PO AT BEDTIME 1 July 05, 2023 12:00am July 24, 2023 11:07am Start: 09-28-2021 End: 01-19-2022 take 2 tablets by mouth once daily Metoprolol Succinate (Toprol Xl) 25 mg tablet extended release 24 hr Discontinued 12.5 mg PO DAILY September 28, 2021 10:00am January 19, 2022 5:30pm Must be name brand: generic causes palpitations. Start: 03-22-2021 End: 09-28-2021 take 1 tablet by mouth once daily Metoprolol Succinate (Toprol Xl) 25 mg tablet extended release 24 hr Discontinued 25 mg PO DAILY 90 3 March 25, 2021 10:09am September 28, 2021 10:03am Must be name brand: generic causes palpitations. 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 Start: 06-28-2017 End: 10-16-2018 take 1 tablet by mouth every twenty-four hours Metoprolol Succinate (Toprol Xl) 25 mg tablet extended release 24 hr Discontinued 25 mg PO .COMPLEX 90 3 July 26, 2018 11:49am October 16, 2018 9:49am BILL 's INSURANCE [employer] 25 mg PO daily: must be NAME BRAND TOPROL, pt cannot tolerate generic Start: 06-27-2017 End: 07-26-2018 take 1 tablet by mouth once daily Metoprolol Succinate 25 mg tablet extended release 24 hr Discontinued 25 mg PO daily 30 0 June 28, 2017 10:22am June 28, 2017 10:54am Start: 06-14-2017 End: 06-27-2017 take 2 tablets by mouth once daily Metoprolol Succinate 50 mg tablet extended release 24 hr Discontinued 25 mg PO DAILY 45 3 June 20, 2017 10:29am June 27, 2017 4:29pm NELLY Start: 07-31-2015 take 1 tablet by derrick th once daily TOPROL XL 50 MG [id number] (ER) One half tablet by mouth daily METOPROLOL SUCCINATE [id number] Torrey BRODERICK Start: 07-31-2015 take 1 tablet by derrick th once daily TOPROL XL 50 MG [id number] (ER) One half tablet by mouth daily METOPROLOL SUCCINATE [id number] Kylah Hooker RN Start: 07-31-2015 take 1 tablet by derrick th once daily TOPROL XL 50 MG [id number] (ER) One half tablet by mouth daily METOPROLOL SUCCINATE [id number] Torrey Michael ENVIRONMENTAL OFFICER-C Start: 07-31-2015 take 1 tablet by derrick th once daily TOPROL XL 50 MG [id number] (ER) One half tablet by mouth daily METOPROLOL SUCCINATE [id number] Kylah Hooker RN Start: 05-16-2014 End: 06-14-2017 Metoprolol Succinate 50 MG t ablet Discontinued 25 mg PO DAILY May 16, 2014 12:00am June 14, 2017 6:44pm Start: 04-20-2010 End: 06-27-2017 take 25 mg by mouth once daily Metoprolol Succinate Di scontinued 25 MG PO DAILY June 14, 2017 6:41pm June 20, 2017 10:30am Start: 04-20-2010 End: 07-30-2015 take 1 tablet by mouth twice daily TOPROL XL 50 MG [id number] One tablet by mouth twice daily METOPROLOL SUCCINATE [id number] Scarlett Lebron RN Start: 04-20-2010 take 1 tablet by derrick th once daily TOPROL XL 50 MG [id number] One tablet by mouth daily METOPROLOL SUCCINATE [id number] Reed Monet MD Start: 04-20-2010 End: 07-30-2015 take 1 tablet by mouth twice daily TOPROL XL 50 MG [id number] One tablet by mouth twice daily METOPROLOL SUCCINATE [id number] Scarlett Lerbon RN Start: 04-20-2010 take 1 tablet by derrick th twice daily TOPROL XL 50 MG [id number] One tablet by mouth twice daily METOPROLOL SUCCINATE [id number] Reed Monet MD Start: 04-20-2010 take 1 tablet by derrick th twice daily TOPROL XL 50 MG [id number] One half tablet by mouth twice daily METOPROLOL SUCCINATE [id number] Reed Monet MD Start: 04-20-2010 take 1 tablet by derrick th once daily TOPROL XL 50 MG [id number] One tablet by mouth daily METOPROLOL SUCCINATE [id number] Reed Monet MD Start: 04-20-2010 End: 07-30-2015 take 1 tablet by mouth twice daily TOPROL XL 50 MG [id number] One tablet by mouth twice daily METOPROLOL SUCCINATE [id number] Scarlett Lebron RN Start: 04-20-2010 take 1 tablet by derrick th twice daily TOPROL XL 50 MG [id number] One tablet by mouth twice daily NELLY METOPROLOL SUCCINATE [id number] Reed Monet MD Start: 04-20-2010 take 1 tablet by derrick th twice daily TOPROL XL 50 MG [id number] One half tablet by mouth twice daily METOPROLOL SUCCINATE [id number] Reed Monet MD mometasone furoate 0.001 mg/mg topical ointment (20 sources) Corticosteroid Start: 01-07-2002 End: 01-29-2013 ELOCON 0.1 % OINT Take as directed MOMETASONE FUROATE [id number] Reed Monet MD Start: 01-07-2002 End: 01-29-2013 ELOCON 0.1 % OINT Take as di rected MOMETASONE FUROATE [id number] Reed Monet MD Start: 01-07-2002 ELOCON 0.1 % O INT Take as directed MOMETASONE FUROATE [id number] Denise Resendez Start: 01-07-2002 End: 01-29-2013 ELOCON 0.1 % OINT Take as di rected MOMETASONE FUROATE [id number] Reed Monet MD Start: 01-07-2002 ELOCON 0.1 % O INT Take as directed MOMETASONE FUROATE [id number] Denise Resendez MULTIPLE VITAMIN (20 sources) Start: 02-06-2015 End: 07-16-2015 take 1 tablet by mouth once daily MULTIVITAMINS TABS One tablet by mouth daily MULTIPLE VITAMIN Chante Paige RN Start: 02-06-2015 take 1 tablet by derrick th once daily MULTIVITAMINS TABS One tablet by mouth daily MULTIPLE VITAMIN Kylah Hooker RN Start: 02-06-2015 take 1 tablet by derrick th once daily MULTIVITAMINS TABS One tablet by mouth daily MULTIPLE VITAMIN Kylah Hooker RN Start: 02-06-2015 End: 07-16-2015 take 1 tablet by mouth once daily MULTIVITAMINS TABS One tablet by mouth daily MULTIPLE VITAMIN Chante Paige RN olopatadine 1 mg/ml ophthalmic solution (20 sources) Histamine-1 Receptor Inhibitor Start: 01-07-2002 End: 07-26-2011 PATANOL 0.1 % SOLN 1 drop OU QD OLOPATADINE HCL [id number] Denise Resendez Start: 01-07-2002 PATANOL 0.1 % SOLN 1 drop OU QD OLOPATADINE HCL [id number] Denise Resendez Start: 01-07-2002 End: 07-26-2011 PATANOL 0.1 % SOLN 1 drop OU QD OLOPATADINE HCL [id number] Valeriy Gonzalez MD Start: 01-07-2002 PATANOL 0.1 % SOLN 1 drop OU QD OLOPATADINE HCL [id number] Denise Resendez Start: 01-07-2002 End: 07-26-2011 PATANOL 0.1 % SOLN 1 drop OU QD OLOPATADINE HCL [id number] Valeriy Gonzalez MD pregabalin 75 mg oral capsule (20 sources) Start: 12-22-2017 End: 04-03-2018 take 1 capsule by mouth twice daily Pregabalin (Lyrica) 75 mg capsule Discontinued 75 mg PO TWICE A DAY December 22, 2017 12:00am April 03, 2018 2:28pm simvastatin 20 mg oral tablet (20 sources) HMG-CoA Reductase Inhibitor Start: 05-09-2024 simvastatin 20 mg oral tablet Dose : 20 mg = 1 tab(s), Oral, qHS, 0 Refill(s) Start Date: 05/09/24 Status: Ordered Repeat number: 1 Start: 05-02-2023 End: 07-17-2024 take 2 tablets by mouth once daily in the evening Simvastatin 20 mg tablet Discontinued 20 mg PO EVERY EVENING 90 4 July 11, 2024 4:09pm July 17, 2024 8:06am Use acct. number [id number] for proper billing (pt has 2 accounts) Start: 07-03-2017 End: 05-02-2023 take 1 tablet by mouth once daily in the evening Simvastatin 20 mg tablet Discontinued 20 mg PO EVERY EVENING 90 4 March 18, 2021 2:47pm March 16, 2022 11:59am triamcinolone acetonide 5 mg/ml topical cream (20 sources) Corticosteroid Start: 04-17-2023 End: 12-28-2023 Triamcinolone Acetonide 0.5 % cream Discontinued 1 NMA TOPICAL TWICE A DAY 15 7 2 September 26, 2023 1:23pm December 28, 2023 12:42pm peasized amount as instructed Start: 10-26-2022 End: 01-17-2023 Triamcinolone Acetonide 0.5 % cream Discontinued 1 NMA TOPICAL TWICE A DAY 15 7 2 October 26, 2022 12:26pm January 17, 2023 2:15pm peasized amount as instructed Start: 11-22-2021 End: 01-17-2023 Triamcinolone Acetonide 0.5 % cream Discontinued 1 NMA TOPICAL TWICE A DAY 15 7 2 November 22, 2021 12:00am October 26, 2022 12:26pm peasized amount as instructed Start: 01-07-2002 End: 06-02-2014 TRIAMCINOLONE ACETONIDE 0.1 % OINT Apply as directed TRIAMCINOLONE ACETONIDE [id number] Denise Resendez Vitamin B Complex (20 sources) Start: 02-02-2022 End: 01-17-2023 take 1 tablet by mouth once daily Vitamin B Complex Discontinued 1 TABLET PO DAILY February 02, 2022 1:00am January 17, 2023 2:14pm Start: 02-02-2022 End: 01-17-2023 take 1 tablet by mouth once daily Vitamin B Complex Discontinued 1 TABLET PO DAILY February 02, 2022 12:00am January 17, 2023 1:14pm Start: 02-02-2022 take 1 tablet by derrick th once daily Vitamin B Complex Active 1 TABLET PO DAILY February 02, 2022 1:00am Start: 02-02-2022 take 1 tablet by derrick th once daily Vitamin B Complex Active 1 TABLET PO DAILY February 02, 2022 12:00am Vitamin B Complex tablet (6 sources) Start: 02-02-2022 End: 01-17-2023 Vitamin B Complex tablet Dis continued 1 {tbl} PO DAILY February 02, 2022 1:00am January 17, 2023 2:14pm Start: 02-02-2022 End: 01-17-2023 Vitamin B Complex tablet Dis continued 1 {tbl} PO DAILY February 02, 2022 1:00am January 17, 2023 2:14pm Problems Active Problems Problem Classification Problem Date Documented Da te Episodic/Chronic Administrative/social admission (7 sources) Persons encountering health services in other specified circumstances; 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: [Other reasons for seeking consultation] Episodic Allergic reactions (2 sources) Allergy status to penicillin; 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: [Latex allergy status] Onset: 5 Episodic Cardiac dysrhythmias (20 sources) Ventricular premature beats; 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: [Atrial flutter] Onset: 1 04-28-2010 Chronic Cardiac dysrhythmias (20 sources) Palpitations; 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: [Tachycardia, unspecified] Onset: 3 01-29-2013 Episodic Chronic kidney disease (6 sources) Chronic kidney disease; 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: [Chronic kidney disease, unspecified] 02-18-2024 Chronic Conditions associated with dizziness or vertigo (20 sources) Lightheadedness; 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: [Dizziness and giddiness] Episodic Congestive heart failure; nonhypertensive (1 source) Chronic systolic (congestive) heart failure; 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: [Chronic systolic (congestive) heart failure] Onset: 5 Chronic Deficiency and other anemia (8 sources) Nutritional anemia, unspecified; 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: [Unspecified deficiency anemia] Episodic Disorders of lipid metabolism (20 sources) Hyperlipidemia; 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: [Hyperlipidemia, unspecified] Onset: 1 04-28-2010 Chronic Comment on above: Last lipids 02/09/20 22 that I have on record total cholesterol 190 HDL 74 LDL 94 triglycerides 111. This represents adequate control for someone with no known atherosclerotic disease. E Codes: Fall (10 sources) Unspecified fall, initial encounter; 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: [Unspecified fall] Episodic Essential hypertension (20 sources) Hypertensive disorder; 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: [Essential (primary) hypertension] 09-28-2021 Chronic Genitourinary symptoms and ill-defined conditions (20 sources) History of urinary tract infection; 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: [Personal history of urinary (tract) infections] 09-28-2021 Episodic Gout and other crystal arthropathies (20 sources) Chondrocalcinosis of knee joint; 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: [Other chondrocalcinosis, unspecified knee] Chronic Headache; including migraine (10 sources) Post-traumatic headache, unspecified, not intractable; 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: [Post-traumatic headache, unspecified] Episodic Heart valve disorders (20 sources) Aortic valve regurgitation; 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: [Mitral valve disorder] Onset: 1 Resolved: 6 12-15-2014 Chronic Comment on above: [address] [place] Prosth etic Valve 07/12/2000 @ [facility] 23 On-X Aortic Valve @ [facility] 01/20/15 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 with complications and secondary hypertension (1 source) Hypertensive heart disease with heart failure; 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: [Hypertensive heart disease with heart failure] Onset: 5 Chronic Osteoarthritis (20 sources) Osteoarthritis of right hip joint; 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: [Unilateral primary osteoarthritis, right hip] Onset: 5 Chronic Other aftercare (20 sources) Other 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) drug therapy; 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: [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 Other bone disease and musculoskeletal deformities (20 sources) Postmenopausal osteopenia; 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: [Other specified disorders of bone density and structure, unspecified site] 12-15-2021 Episodic Comment on above: Moderate fx risk. re peat BMD in 2 years. calcium, vit D3 and weight bearing exercise. fu with PCP for management. Other bone disease and musculoskeletal deformities (2 sources) Osteopenia 08-14-2015 Episodic Other bone disease and musculoskeletal deformities (1 source) Other specified disorders of bone density and structure, unspecified site; 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: [Other specified disorders of bone density and structure, unspecified site] Onset: 5 Episodic Other connective tissue disease (20 sources) History of osteopenia; 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: [Personal history of other diseases of the musculoskeletal system and connective tissue] 09-28-2021 Episodic Other connective tissue disease (20 sources) Trochanteric bursitis; 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: [Trochanteric bursitis, unspecified hip] 12-08-2021 Episodic Other connective tissue disease (20 sources) Iliotibial band friction syndrome; 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: [Iliotibial band syndrome, unspecified leg] 12-08-2021 Episodic Other connective tissue disease (10 sources) Trochanteric bursitis, unspecified hip; 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: [Enthesopathy of hip region] Episodic Other connective tissue disease (10 sources) Iliotibial band syndrome, unspecified leg; 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: [Other disorders of muscle, ligament, and fascia] Episodic Other connective tissue disease (8 sources) Other symptoms and signs involving the musculoskeletal system; 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: [Other musculoskeletal symptoms referable to limbs] Episodic Other connective tissue disease (6 sources) H/O: back problem; 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: [Personal history of other diseases of the musculoskeletal system and connective tissue] 09-28-2021 Episodic Other diseases of kidney and ureters (5 sources) Renal impairment; 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: [Disorder of kidney and ureter, unspecified] 07-10-2024 Episodic Other diseases of kidney and ureters (1 source) Disorder of kidney and ureter, unspecified; 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: [Disorder of kidney and ureter, unspecified] Onset: 5 Episodic Other female genital disorders (15 sources) Other specified noninflammatory disorders of vagina; 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: [Leukorrhea, not specified as infective] Episodic Other female genital disorders (9 sources) Other specified noninflammatory disorders of vulva and perineum; 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: [Other specified noninflammatory disorders of vulva and perineum] Episodic Other gastrointestinal disorders (20 sources) H/O: gallstones; 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: [Personal history of other diseases of the digestive system] 09-28-2021 Episodic Other lower respiratory disease (20 sources) Dyspnea on exertion; 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: [Snoring] Onset: 5 12-16-2014 Episodic Other lower respiratory disease (8 sources) Other forms of dyspnea; 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: [Other respiratory abnormalities] Onset: 5 03-16-2022 Episodic Other lower respiratory disease (1 source) Dyspnea, unspecified; 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: [Dyspnea, unspecified] Onset: 5 Episodic Other nervous system disorders (20 sources) H/O: cataract; 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: [Personal history of other diseases of the nervous system and sense organs] 09-28-2021 Episodic Other non-epithelial cancer of skin (20 sources) History of malignant neoplasm of skin; 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: [Personal history of other malignant neoplasm of skin] 09-28-2021 Episodic Other non-traumatic joint disorders (10 sources) Pain in right knee; 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: [Pain in joint, lower leg] Episodic Other non-traumatic joint disorders (10 sources) Pain in right hip; 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: [Pain in joint, pelvic region and thigh] Episodic Other skin disorders (20 sources) Lichen sclerosus et atrophicus; 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: [Lichen sclerosus et atrophicus] 11-09-2020 Chronic Comment on above: clobetesol Other upper respiratory infections (6 sources) Viral upper respiratory tract infection; 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: [Acute upper respiratory infection, unspecified] 02-18-2024 Episodic Keiry-; endo-; and myocarditis; cardiomyopathy (except that caused by tuberculosis or sexually transmitted disease) (7 sources) Cardiomyopathy; 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: [Cardiomyopathy, unspecified] Onset: 5 02-12-2024 Chronic Prolapse of female genital organs (20 sources) Uterovaginal prolapse; 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: [Uterovaginal prolapse, unspecified] Chronic Comment on above: pessary Residual codes; unclassified (20 sources) Hypersomnia; 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: [Hypersomnia, unspecified] 06-19-2017 Chronic Residual codes; unclassified (1 source) Acquired absence of other specified parts of digestive tract; 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: [Acquired absence of other specified parts of digestive tract] Onset: 5 Episodic Spondylosis; intervertebral disc disorders; other back problems (20 sources) Degeneration of lumbar intervertebral disc; 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: [Other intervertebral disc degeneration, lumbar region] Chronic Spondylosis; intervertebral disc disorders; other back problems (20 sources) Low back pain; 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: [Chronic lumbosacral pain] Episodic Unclassified (16 sources) Replacement of mitral valve ; 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: [Other specified postprocedural states] Onset: 3 01-29-2013 Unclassified (16 sources) Replacement of aortic valve ; 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: [Presence of prosthetic heart valve] Onset: 5 02-06-2015 Unclassified (10 sources) Long-term drug therapy; 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: [Other 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) drug therapy] Onset: 1 04-28-2010 Unclassified (10 sources) Warfarin therapy started; 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: [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] Onset: 5 08-27-2014 Unclassified (1 source) Unknown / UNK(Unknown) Onset: 7 Unclassified (20 sources) H/O: back problem; 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: [History of back problems] 09-28-2021 Unclassified (2 sources) I48.19 - Other persistent atrial fibrillation,Z95.2 - Presence of prosthetic heart valve,I42.9 - Cardiomyopathy, unspecified Unclassified (2 sources) Mitral valve prosthesis, device (physical object) 01-20-2015 Comment on above: normal functioning S t Diego MV inserted in 2000 Unclassified (2 sources) Right handed 01-20-2015 Unclassified (2 sources) Other persistent atrial fibrillation; 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: [Other persistent atrial fibrillation] Onset: 5 Unclassified (1 source) Cough, unspecified; 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: [Cough, unspecified] Onset: 5 Past or Other Problems Problem Classification Problem Date Documented Da te Episodic/Chronic Coma, stupor, brain damage (20 sources) Daytime somnolence; 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: [Somnolence] Onset: 05-02-2016 05-02-2016 Episodic Malaise and fatigue (20 sources) Other fatigue; 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: [Fatigue] Onset: 12-16-2014 12-16-2014 Episodic Other lower respiratory disease (5 sources) Snoring; 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: [Snoring] Onset: 05-02-2016 05-02-2016 Episodic Other nutritional; endocrine; and metabolic disorders (20 sources) Body mass index (BMI) 25.0-25.9, adult; 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: [Body mass index (BMI) 25.0-25.9, adult] Onset: 01-29-2013 01-29-2013 Episodic Other screening for suspected conditions (not mental disorders or infectious disease) (20 sources) Raised TSH level; 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: [Other specified abnormal findings of blood chemistry] Onset: 01-08-2024 Episodic Results Test Name Value Interpretation Reference Range Facility Prothrombin Time w/INRon INR Coag (PPP) [Relative time] 2.6 {INR} Normal [facility] Comment on above: Performed By: #### L [id number] #### [facility] [address] [place], [address] PT Coag (PPP) [Time] 28.2 s High 11.7-14.9 [facility] Comment on above: Performed By: #### L [id number] #### [facility] [address] [place], [address] Cardiology Visit Reporton Cardiology Visit Report [facility] [address] [place], [place] [address] OFFICE VISIT Date of Service: 08/26/24 MR#: [id number] Acct: [id number] Name: DONNA NARANJO I Rep #: [id number] : 1940 Provider: AB manrique Age/Sex: 83/F Location: [email or web address] Status: Signed HPI HPI History of Present Illness Details: This is an 83-year-old female who presents to the office today for cardiovascular follow-up visit. She has a past medical history significant for rheumatic heart disease status post mitral and aortic valve replacements with prosthetic valves. She has history of paroxysmal atrial fibrillation/flutte r. She has had multiple cardioversions done in the past. Echocardiogram in April 2024 showed an ejection fraction of 40% and stable mechanical mitral valve apparatus. She proceed with EP evaluation and atrial fibrillation ablation in June [address] De La Cruz at [facility]. She denies chest, arm, jaw, or neck discomfort. She denies palpitations. She denies bilateral lower extremity edema. She denies claudication. She states shortness of breath with activity. She denies shortness of breath at rest, orthopnea, or PND. She denies chronic cough. She denies significant, sudden weight gain. She acknowledges occasional lightheadedness. She denies dizziness, near-syncope, or syncope. She denies blood in urine, blood in stool, or epistaxis. He denies fever with chills. She denies myalgia. She acknowledges fatigue and weakness since atrial fibrillation ablation. Her exercise level has remained stable. 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 Accompanied by: Is patient in pain?: No Allergies latex Allergy (Verified 08/26/24 11:03) Itching Penicillins Allergy (Verified 08/26/24 11:03) Rash Medications ???Medication ???Instructions ???Recorded ???Confirmed ???Type aspirin 81 mg chewable tablet 81 mg PO DAILY@0800 08/12/1408/26 History ascorbic acid (vitamin C) 1,000 mg 1 g PO DAILY 07/26/18 08/26/24 H istory tablet BP Machine and Cuff #1 ea 02/24/21 06/28/24 Rx acetaminophen 650 mg 1,300 mg PO Q12H 01/03/22 08/26/24 History tablet,extended release cholecalciferol (vitamin D3) 125 125 mcg PO DAILY 01/03/22 08/26/24 History mcg (5,000 unit) tablet amiodarone 200 mg tablet 200 mg PO QDAY #30 tabs 01/26/24 0 08/26/24 Rx enoxaparin 60 mg/0.6 mL 60 mg (0.6 mL) subcut .COMPLEX PRN 02/22/24 08/26/24 Rx subcutaneous syringe Bridging #6 mL furosemide 40 mg tablet 40 mg PO .COMPLEX #90 tabs 5 08/26/24 Rx losartan 25 mg tablet 25 mg PO DAILY #90 tabs 03/29/24 0 08/26/24 Rx Held on 08/26/24. Instructions: Kidney function warfarin 1 mg tablet 1 mg PO .COMPLEX #180 tabs 5 08/26/24 Rx simvastatin 20 mg tablet 20 mg PO QPM #90 tabs 07/17/2409/13 Rx Ejection fraction %: 40 Have you fallen in the past year?: No PFSH Medical History Fatigue Bradycardia Sacroiliitis Dyspnea on exertion Low back pain Lightheadedness Osteopenia after menopause Right knee DJD Chondrocalcinosis of knee Lumbar degenerative disc disease 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 Greater trochanteric bursitis Elevated TSH History of skin cancer Hx of osteopenia Hx of gallstones Hx of cataract Hx: UTI (urinary tract infection) History of back problems senior care current use of amiodarone RUIZ (dyspnea on exertion) Lichen sclerosus Cystocele with uterine descensus Shingles Hypersomnia, unspecified Migraines Psoriasis 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 Hyperlipidemia Atrial flutter, paroxysmal 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 Surgical History History of cardiac ablation for atrial fibrillation (07/01/24) History of mitral valve replacement with mechanical valve ( 07/12/00) History of mechanical aortic valve replacement ( 01/20/15) History of surgery on arm History of right and left heart catheterization (12/26/14) History of thoracentesis (02/01/15) Hx of cholecystectomy Right Tibial ORIF History of cardioversion (12/28/18) H/O mitral valve replacement (07/12/00) H/O aortic valve replacement (01/20/15) Family History Other Adopted Social History household members: significant other housing: house current occupational status: retired current occupati (more content not included)... Normal [facility] Comprehensive Metabolic Prof ilon 08-26-2024 Albumin [Mass/Vol] 4.2 g/dL Normal 3.4-4.8 [facility] Comment on above: Performed By: #### L [id number] #### [facility] [address] [place], [address] Albumin/Globulin [Mass ratio] 1.4 {ratio} Normal 0.9-2.4 [facility] Comment on above: Performed By: #### L [id number] #### [facility] [address] [place], [address] ALK PHOS 90 U/L Normal 35-104 [facility] Comment on above: Performed By: #### [id number] #### [facility] [address] [place], [address] ALT [Catalytic activity/Vol] 17 U/L Normal <=34 [facility] Comment on above: Performed By: #### [id number] #### [facility] [address] [place], [address] AST [Catalytic activity/Vol] 33 U/L High <=31 [facility] Comment on above: Performed By: #### [id number] #### [facility] [address] [place], [address] Bilirubin [Mass/Vol] 0.61 mg/dL Normal 0.00-1.30 [facility] Comment on above: Performed By: #### L [id number] #### [facility] [address] [place], [address] BUN/CRE 17.5 RATIO Normal 10-20 [facility] Comment on above: Performed By: #### L [id number] #### [facility] [address] [place], [address] Calcium [Mass/Vol] 10.6 mg/dL Normal 7.6-11.0 [facility] Comment on above: Performed By: #### L [id number] #### [facility] [address] [place], [address] Chloride [Moles/Vol] 104 mmol/L Normal 98-108 [facility] Comment on above: Performed By: #### L [id number] #### [facility] [address] [place], [address] CO2 [Moles/Vol] 21.3 mmol/L Normal 21.0-32.0 [facility] Comment on above: Performed By: #### L [id number] #### [facility] [address] [place], [address] Creatinine [Mass/Vol] 2.98 mg/dL High 0.70-1.20 [facility] Comment on above: Performed By: #### L [id number] #### [facility] [address] [place], [address] GAP 14 Normal 5-15 [facility] Comment on above: Performed By: #### L [id number] #### [facility] [address] [place], [address] GFR/1.73 sq M.predicted among non-blacks MDRD (S/P/Bld) [Vol rate/Area] 15 mL/min/{1.73_m2} Low >60 [facility] Comment on above: Result Comment: mL/m in/1.73m2 CKD-EPI Creatinine Equation (2020) Performed By: #### L [id number] #### [facility] [address] [place], [address] Globulin (S) [Mass/Vol] 3.0 g/dL Normal 2.2-4.2 [facility] Comment on above: Performed By: #### L [id number] #### [facility] [address] [place], [address] Glucose [Mass/Vol] 97 mg/dL Normal 70-99 [facility] Comment on above: Performed By: #### L [id number] #### [facility] [address] [place], [address] Potassium [Moles/Vol] 4.2 mmol/L Normal 3.3-5.1 [facility] Comment on above: Performed By: #### L [id number] #### [facility] [address] [place], [address] Sodium [Moles/Vol] 140 mmol/L Normal 133-145 [facility] Comment on above: Performed By: #### L [id number] #### [facility] [address] [place], [address] T PROT 7.2 g/dL Normal 5.9-8.4 [facility] Comment on above: Performed By: #### L [id number] #### [facility] [address] [place], [address] Urea nitrogen [Mass/Vol] 52 mg/dL High 4-19 [facility] Comment on above: Performed By: #### L [id number] #### [facility] [address] [place], [address] Magnesiumon 07-07-2025 Magnesium [Mass/Vol] 2.6 mg/dL High 1.5-2.2 [facility] Comment on above: Performed By: #### L [id number] #### [facility] [address] [place], [address] Prothrombin Time w/INRon INR Coag (PPP) [Relative time] 2.4 {INR} Normal [facility] Comment on above: Performed By: #### L [id number] #### [facility] [address] [place], [address] PT Coag (PPP) [Time] 26.2 s High 11.7-14.9 [facility] Comment on above: Performed By: #### L [id number] #### [facility] [address] [place], [address] Absolute lymphocyte countOrd ered By: Cortez Louie on 08-21-2024 Lymphocytes Auto (Unsp spec) [#/Vol] 0.75 10*3/uL Low 0.83-4.51 [facility] Absolute neutrophil countOrd ered By: Cortez Louie on 08-21-2024 Neutrophils (Bld) [#/Vol] 6.4 10*3/uL 2.0-7.7 [facility] Anion gap in Serum or Plasma Ordered By: Cortez Louie on 08-21-2024 Anion gap [Moles/Vol] 11 mmol/L 5-15 [facility] Automated lymphocyte count a s percentage of total leukocytesOrdered By: Cortez Louie on 08-21-2024 Lymphocytes/100 WBC Auto (Unsp spec) 7.5 % Low 19-41 [facility] BUN/creatinine ratioOrdered By: Cortez Louie on 08-21-2024 Urea nitrogen/Creatinine [Mass ratio] 17.5 mg/mg 10- [facility] Basic Metabolic Profile (BMP )on 08-21-2024 BUN/CRE 17.5 RATIO Normal - [facility] Comment on above: Performed By: #### L [id number] #### [facility] [address] [place], [address] Calcium [Mass/Vol] 10.3 mg/dL Normal 7.6-11.0 [facility] Comment on above: Performed By: #### L [id number] #### [facility] [address] [place], [address] Chloride [Moles/Vol] 107 mmol/L Normal 98-108 [facility] Comment on above: Performed By: #### L [id number] #### [facility] [address] [place], [address] CO2 [Moles/Vol] 24.2 mmol/L Normal 21.0-32.0 [facility] Comment on above: Performed By: #### L [id number] #### [facility] [address] [place], [address] Creatinine [Mass/Vol] 3.72 mg/dL High 0.70-1.20 [facility] Comment on above: Performed By: #### L [id number] #### [facility] [address] [place], [address] GAP 11 Normal 5-15 [facility] Comment on above: Performed By: #### L [id number] #### [facility] [address] [place], [address] GFR/1.73 sq M.predicted among non-blacks MDRD (S/P/Bld) [Vol rate/Area] 12 mL/min/{1.73_m2} Low >60 [facility] Comment on above: Result Comment: mL/m in/1.73m2 CKD-EPI Creatinine Equation (2020) Performed By: #### L [id number] #### [facility] [address] [place], [address] Glucose [Mass/Vol] 89 mg/dL Normal 70-99 [facility] Comment on above: Performed By: #### L [id number] #### [facility] [address] [place], [address] Potassium [Moles/Vol] 4.5 mmol/L Normal 3.3-5.1 [facility] Comment on above: Performed By: #### L [id number] #### [facility] [address] [place], [address] Sodium [Moles/Vol] 143 mmol/L Normal 133-145 [facility] Comment on above: Performed By: #### L [id number] #### [facility] [address] [place], [address] Urea nitrogen [Mass/Vol] 65 mg/dL High 4-19 [facility] Comment on above: Performed By: #### L [id number] #### [facility] [address] [place], [address] Basophil percentageOrdered B y: Cortez Louie on 08-21-2024 Basophils/100 WBC (Bld) 0.6 % 0-1 [facility] CBC W/Diff, Automatedon Absolute Lymph 0.75 X10 3/uL Low 0.83-4.51 [facility] Comment on above: Performed By: #### L [id number] #### [facility] [address] [place], [address] Absolute Neut 6.4 X10 3/uL Normal 2.0-7.7 [facility] Comment on above: Performed By: #### L [id number] #### [facility] [address] [place], [address] Basophils/100 WBC (Bld) 0.6 % Normal 0-1 [facility] Comment on above: Performed By: #### L [id number] #### [facility] [address] [place], [address] Eosinophils/100 WBC (Bld) 14.5 % High 0-5 [facility] Comment on above: Performed By: #### L [id number] #### [facility] [address] [place], [address] Erythrocyte distribution width (RBC) [Ratio] 15.9 % High 11.6-14.6 [facility] Comment on above: Performed By: #### L [id number] #### [facility] [address] [place], [address] Hematocrit (Bld) [Volume fraction] 32.8 % Low 37-47 [facility] Comment on above: Performed By: #### L [id number] #### [facility] [address] [place], [address] Hemoglobin (Bld) [Mass/Vol] 10.6 g/dL Low 12.0-15.0 [facility] Comment on above: Performed By: #### L [id number] #### [facility] [address] [place], [address] IG% 0.700 Normal 0.0-0.9 [facility] Comment on above: Result Comment: IG% - Immature Granulocytes (promyelocytes, myelocytes and metamyelocytes) > 1% indicates that a LEFT SHIFT is Present. Performed By: #### L [id number] #### [facility] [address] [place], [address] Lymphocytes/100 WBC (Bld) 7.5 % Low 19-41 [facility] Comment on above: Performed By: #### L [id number] #### [facility] [address] [place], [address] MCH (RBC) [Entitic mass] 33.9 pg High 27.0-32.0 [facility] Comment on above: Performed By: #### L [id number] #### [facility] [address] [place], [address] MCHC (RBC) [Mass/Vol] 32.3 g/dL Normal 32-36 [facility] Comment on above: Performed By: #### L [id number] #### [facility] [address] [place], [address] MCV (RBC) [Entitic vol] 104.8 fL High 81-99 [facility] Comment on above: Performed By: #### L [id number] #### [facility] [address] [place], [address] Monocytes/100 WBC (Bld) 13.3 % High 0-10 [facility] Comment on above: Performed By: #### L [id number] #### [facility] [address] [place], [address] Neutrophils/100 WBC (Bld) 63.4 % Normal 47-70 [facility] Comment on above: Performed By: #### L [id number] #### [facility] [address] [place], [address] Nucleated RBC (Bld) [#/Vol] 0 10*3/uL Normal 0-5 [facility] Comment on above: Performed By: #### L [id number] #### [facility] [facility] [address] [place], [address] Platelet mean volume (Bld) [Entitic vol] 9.6 fL Normal 6.2-12.0 [facility] Comment on above: Performed By: #### L 300.3900 #### [facility] [address] [place], [address] Platelets (Bld) [#/Vol] 269 10*3/uL Normal 150-450 [facility] Comment on above: Performed By: #### L 300.3900 #### [facility] [address] [place], [address] RBC (Bld) [#/Vol] 3.13 10*6/uL Low 4.2-5.4 [facility] Comment on above: Performed By: #### L 300.3900 #### [facility] [address] [place], [address] RDW SD 61.3 fl High 35.1-43.9 [facility] Comment on above: Performed By: #### L 300.3900 #### [facility] [address] [place], [address] WBC (Bld) [#/Vol] 10.1 10*3/uL Normal 4.4-11.0 [facility] Comment on above: Performed By: #### L 300.3900 #### [facility] [address] [place], [address] Carbon dioxide, total [Moles /volume] in Central venous bloodOrdered By: Cortez Louie on 08-21-2024 CO2 [Moles/Vol] 24.2 mmol/L 21.0-32.0 [facility] Chloride assayOrdered By: Lei Louie on 08-21-2024 Chloride [Moles/Vol] 107 mmol/L 98-108 [facility] Eosinophil percentageOrdered By: Cortez Louie on 08-21-2024 Eosinophils/100 WBC (Bld) 14.5 % High 0-5 [facility] Erythrocyte distribution wid th ratioOrdered By: Cortez Louie on 08-21-2024 Erythrocyte distribution width (RBC) [Ratio] 15.9 % High 11.6-14.6 [facility] Erythrocyte distribution wid th standard deviationOrdered By: Cortez Louie on 08-21-2024 Erythrocyte distribution width (RBC) [Ratio] 61.3 fl High 35.1-43.9 [facility] Glomerular filtration rate ( GFR) estimation/1.73 sq m using serum, plasma, or whole bOrdered By: Cortez Louie on 08-21-2024 GFR/1.73 sq M.predicted among non-blacks MDRD (S/P/Bld) [Vol rate/Area] 12 mL/min/{1.73_m2} Low >60 [facility] Comment on above: mL/min/1.73m2 CKD-EP I Creatinine Equation (2020) Hematocrit Auto (Bld) [Volum e fraction]Ordered By: Cortez Louie on 08-21-2024 Hematocrit (Bld) [Volume fraction] 32.8 % Low 37-47 [facility] Hemoglobin measurementOrdere d By: Cortez Louie on 08-21-2024 Hemoglobin (Bld) [Mass/Vol] 10.6 g/dL Low 12.0-15.0 [facility] Immature granulocytes/100 WB C Auto (Bld)Ordered By: Cortez Louie on 08-21-2024 Immature granulocytes/100 WBC (Bld) 0.700 % 0.0-0.9 [facility] Comment on above: IG% - Immature Granu locytes (promyelocytes, myelocytes and metamyelocytes) > 1% indicates that a LEFT SHIFT is Present. International normalized rat io (INR) calculationOrdered By: Coretz Louie on 08-21-2024 INR Coag (Bld) [Relative time] 2.6 {INR} [facility] L503.7505on 08-21-2024 Natriuretic peptide B (Bld) [Mass/Vol] 2111 pg/mL High <=1800 [facility] Comment on above: Result Comment: Hear t Failure Unlikely: < 300 pg/mL Heart Failure Likely < 50 Years: > 450 pg/mL 50-75 Years: > 900 pg/mL >75 Years: > 1800 pg/mL Performed By: #### L 300.9364 #### [facility] [place], [address] MCV (mean corpuscular volume ) determinationOrdered By: Cortez Louie on 08-21-2024 MCV (RBC) [Entitic vol] 104.8 fL High 81-99 [facility] Mean corpuscular hemoglobin (MCH) determinationOrdered By: Cortez Louie on 08-21-2024 MCH (RBC) [Entitic mass] 33.9 pg High 27.0-32.0 [facility] Mean corpuscular hemoglobin concentration (MCHC) determinationOrdered By: Cortez Louie on 08-21-2024 MCHC (RBC) [Mass/Vol] 32.3 g/dL 32-36 [facility] Mean platelet volume determi nationOrdered By: Cortez Louie on 08-21-2024 Platelet mean volume (Bld) [Entitic vol] 9.6 fL 6.2-12.0 [facility] Monocyte percentageOrdered B y: Cortez Louie on 08-21-2024 Monocytes/100 WBC (Bld) 13.3 % High 0-10 [facility] Natriuretic peptide.B prohor rolanda N-Terminal [Mass/volume] in Serum or PlasmaOrdered By: Cortez Louie on 08-21-2024 Natriuretic peptide.B prohormone N-Terminal [Mass/Vol] 2111 pg/mL High <1800 [facility] Comment on above: Heart Failure Unlike ly: < 300 pg/mLHeart Failure Likely< 50 Years: > 450 pg/mL50-75 Years: > 900 pg/mL>75 Years: > 1800 pg/mL Neutrophil percentageOrdered By: Cortez Louie on 08-21-2024 Neutrophils/100 WBC (Bld) 63.4 % 47-70 [facility] Nucleated red blood cell per centageOrdered By: Cortez Louie on 08-21-2024 Nucleated RBC/100 WBC (Bld) [Ratio] 0 % 0-5 [facility] Platelet countOrdered By: Lei Louie on 08-21-2024 Platelets (Bld) [#/Vol] 269 10*3/uL 150-450 [facility] Potassium measurement (mass/ volume)Ordered By: Cortez Louie on 08-21-2024 Potassium (Unsp spec) [Mass/Vol] 4.5 mmol/L 3.3-5.1 [facility] Prothrombin Time w/INRon INR Coag (PPP) [Relative time] 2.6 {INR} Normal [facility] Comment on above: Performed By: #### L 300.3900 #### [facility] [address] [place], [place], [id number] PT Coag (PPP) [Time] 28.0 s High 11.7-14.9 [facility] Comment on above: Performed By: #### L 300.3900 #### [facility] [address] [place], [place], [id number] Prothrombin timeOrdered By: Cortez Louie on 08-21-2024 PT Coag (PPP) [Time] 28.0 s High 11.7-14.9 [facility] RBC Auto (Bld) [#/Vol]Ordere d By: Cortez Louie on 08-21-2024 RBC (Bld) [#/Vol] 3.13 10*6/uL Low 4.2-5.4 [facility] Serum creatinine measurement (mass/volume)Ordered By: Cortez Louie on 08-21-2024 Creatinine [Mass/Vol] 3.72 mg/dL High 0.70-1.20 [facility] Serum glucose measurement (m ass/volume)Ordered By: Cortez Louie on 08-21-2024 Glucose [Mass/Vol] 89 mg/dL 70-99 [facility] Serum or plasma calcium geoffrey urement (mass/volume)Ordered By: Cortez Louie on 08-21-2024 Calcium [Mass/Vol] 10.3 mg/dL 7.6-11.0 [facility] Serum or plasma urea nitroge n measurement (mass/volume)Ordered By: Cortez Louie on 08-21-2024 Urea nitrogen [Mass/Vol] 65 mg/dL High 4-19 [facility] Sodium levelOrdered By: Sarita Louie on 08-21-2024 Sodium [Moles/Vol] 143 mmol/L 133-145 [facility] TSH DL <= 0.005 mIU/L QnOrde red By: Cortez Louie on 08-21-2024 TSH Qn 3.540 uIU/mL 0.300-4.200 [facility] Thyroid Stim Hormone (TSH)on 08-21-2024 TSH 3.540 uIU/mL Normal 0.300-4.200 [facility] Comment on above: Performed By: #### L 300.3900 #### [facility] [address] [place], [place], [id number] White blood cell (WBC) count Ordered By: Cortez Louie on 08-21-2024 WBC (Bld) [#/Vol] 10.1 10*3/uL 4.4-11.0 [facility] International normalized rat io (INR) calculationOrdered By: Alfa Bush on 08-13-2024 INR Coag (Bld) [Relative time] 3.7 {INR} [facility] Prothrombin Time w/INRon INR Coag (PPP) [Relative time] 3.7 {INR} Normal [facility] Comment on above: Performed By: #### L 300.3900 #### [facility] [address] [place], [address] PT Coag (PPP) [Time] 37.5 s High 11.7-14.9 [facility] Comment on above: Performed By: #### L 300.3900 #### [facility] [address] [place], [address] Prothrombin timeOrdered By: Alfa Bush on 08-13-2024 PT Coag (PPP) [Time] 37.5 s High 11.7-14.9 [facility] Prothrombin Time w/INRon INR Coag (PPP) [Relative time] 4.2 {INR} Invalid Interpretation Code [facility] Comment on above: Order Comment: Comme nts: STANDING ORDER Result Comment: CRIT ICAL VALUE CALLED TO RICHIE HILL ([facility]) 08/09/24 1254 Handy Mena. RESULTS READ BACK BY SAME. Performed By: #### L 300.3900 #### [facility] [address] [place], [address] PT Coag (PPP) [Time] 41.6 s High 11.7-14.9 [facility] Comment on above: Order Comment: Comme nts: STANDING ORDER Performed By: #### L 300.3900 #### [facility] [address] [place], [address] Prothrombin Time w/INRon INR Coag (PPP) [Relative time] 3.9 {INR} Normal [facility] Comment on above: Performed By: #### L 300.3900 #### [facility] [address] [place], [address] PT Coag (PPP) [Time] 39.4 s High 11.7-14.9 [facility] Comment on above: Performed By: #### L 300.3900 #### [facility] [address] [place], [address] Prothrombin Time w/INRon INR Coag (PPP) [Relative time] 5.0 {INR} Invalid Interpretation Code [facility] Comment on above: Order Comment: CRITI PAUL VALUE CALLED TO [facility]07/26/24 1412 Aislinn Cardenas.RESULTS READ BACK BY LNOLT Performed By: #### L 300.3900 #### [facility] [address] [place], [address] PT Coag (PPP) [Time] 47.4 s High 11.7-14.9 [facility] Comment on above: Order Comment: CRITI PAUL VALUE CALLED TO [facility]07/26/24 Ho2 Aislinn Cardenas.RESULTS READ BACK BY LNOLT Performed By: #### L 300.3900 #### [facility] [address] [place], [address] Anion gap in Serum or Plasma Ordered By: Cortez Louie on 07-19-2024 Anion gap [Moles/Vol] 11 mmol/L 07-04 [facility] BUN/creatinine ratioOrdered By: Cortez Louie on 07-19-2024 Urea nitrogen/Creatinine [Mass ratio] 19.2 mg/mg 12-09 [facility] Basic Metabolic Profile (BMP )on 07-19-2024 BUN/CRE 19.2 RATIO Normal 12-09 [facility] Comment on above: Performed By: #### L 300.3900 #### [facility] [address] [place], [phone] Calcium [Mass/Vol] 12.3 mg/dL High 7.6-11.0 [facility] Comment on above: Performed By: #### L 300.3900 #### [facility] [address] [place], [address] Chloride [Moles/Vol] 106 mmol/L Normal 98-108 [facility] Comment on above: Performed By: #### L 300.3900 #### [facility] [address] [place], [address] CO2 [Moles/Vol] 23.4 mmol/L Normal 21.0-32.0 [facility] Comment on above: Performed By: #### L 300.3900 #### [facility] [address] [place], [address] Creatinine [Mass/Vol] 2.60 mg/dL High 0.70-1.20 [facility] Comment on above: Performed By: #### L 300.3900 #### [facility] [address] [place], [address] GAP 11 Normal 5-15 [facility] Comment on above: Performed By: #### L 300.3900 #### [facility] [address] [place], [address] GFR/1.73 sq M.predicted among non-blacks MDRD (S/P/Bld) [Vol rate/Area] 18 mL/min/{1.73_m2} Low >60 [facility] Comment on above: Result Comment: mL/m in/1.73m2 CKD-EPI Creatinine Equation (2020) Performed By: #### L 300.3900 #### [facility] [address] [place], [address] Glucose [Mass/Vol] 88 mg/dL Normal 70-99 [facility] Comment on above: Performed By: #### L 300.3900 #### [facility] [address] [place], [address] Potassium [Moles/Vol] 4.1 mmol/L Normal 3.3-5.1 [facility] Comment on above: Performed By: #### L 300.3900 #### [facility] [address], [address] Sodium [Moles/Vol] 140 mmol/L Normal 133-145 [facility] Comment on above: Performed By: #### L 300.3900 #### [facility] [address], [address] Urea nitrogen [Mass/Vol] 50 mg/dL High 4-19 [facility] Comment on above: Performed By: #### L 300.3900 #### [facility] [address] [place], [address] Carbon dioxide, total [Moles /volume] in Central venous bloodOrdered By: Cortez Louie on 07-19-2024 CO2 [Moles/Vol] 23.4 mmol/L 21.0-32.0 [facility] Chloride assayOrdered By: Lei Louie on 07-19-2024 Chloride [Moles/Vol] 106 mmol/L 98-108 [facility] Glomerular filtration rate ( GFR) estimation/1.73 sq m using serum, plasma, or whole bOrdered By: Cortez Louie on 07-19-2024 GFR/1.73 sq M.predicted among non-blacks MDRD (S/P/Bld) [Vol rate/Area] 18 mL/min/{1.73_m2} Low >60 [facility] Comment on above: mL/min/1.73m2 CKD-EP I Creatinine Equation (2020) Potassium measurement (mass/ volume)Ordered By: Cortez Louie on 07-19-2024 Potassium (Unsp spec) [Mass/Vol] 4.1 mmol/L 3.3-5.1 [facility] Serum creatinine measurement (mass/volume)Ordered By: Cortez Louie on 07-19-2024 Creatinine [Mass/Vol] 2.60 mg/dL High 0.70-1.20 [facility] Serum glucose measurement (m ass/volume)Ordered By: Cortez Louie on 07-19-2024 Glucose [Mass/Vol] 88 mg/dL 70-99 [facility] Serum or plasma calcium geoffrey urement (mass/volume)Ordered By: Cortez Louie on 07-19-2024 Calcium [Mass/Vol] 12.3 mg/dL High 7.6-11.0 [facility] Serum or plasma urea nitroge n measurement (mass/volume)Ordered By: Cortez Louie on 07-19-2024 Urea nitrogen [Mass/Vol] 50 mg/dL High 06-08 [facility] Sodium levelOrdered By: Sarita Louie on 07-19-2024 Sodium [Moles/Vol] 140 mmol/L 133-145 [facility] Basic Metabolic Profile (BMP )on 07-12-2024 BUN Normal 06-08 [facility] Comment on above: Result Comment: PT R EFUSED Performed By: #### L 300.3900 #### [facility] [address] [place], [address] BUN/CRE Normal - [facility] Comment on above: Result Comment: PT R EFUSED Performed By: #### L 300.3900 #### [facility] [address] [place], [address] Calcium Normal 7.6-11.0 [facility] Comment on above: Result Comment: PT R EFUSED Performed By: #### L 300.3900 #### [facility] [address] [place], [address] CL Normal 98-108 [facility] Comment on above: Result Comment: PT R EFUSED Performed By: #### L 300.3900 #### [facility] [address] [place], [address] CO2 Normal 21.0-32.0 [facility] Comment on above: Result Comment: PT R EFUSED Performed By: #### L 300.3900 #### [facility] [address] [place], [address] CREAT,SERUM Normal 0.70-1.20 [facility] Comment on above: Result Comment: PT R EFUSED Performed By: #### L 300.3900 #### [facility] [address] [place], [address] eGFR Normal >60 [facility] Comment on above: Result Comment: PT R EFUSED Performed By: #### L 300.3900 #### [facility] [address] [place], [address] GAP Normal 5-15 [facility] Comment on above: Result Comment: PT R EFUSED Performed By: #### L 300.3900 #### [facility] [address] [place], [address] GLU Normal 70-99 [facility] Comment on above: Result Comment: PT R EFUSED Performed By: #### L 300.3900 #### [facility] [address] [place], [address] Potassium Normal 3.3-5.1 [facility] Comment on above: Result Comment: PT R EFUSED Performed By: #### L 300.3900 #### [facility] [address] [place], [address] Basic Metabolic Profile (BMP) Normal 133-145 [facility] Comment on above: Result Comment: PT R EFUSED Performed By: #### L 300.3900 #### [facility] [address] [place], [address] International normalized rat io (INR) calculationOrdered By: Cortez Louie on 07-12-2024 INR Coag (Bld) [Relative time] 3.0 {INR} [facility] Prothrombin Time w/INRon INR Coag (PPP) [Relative time] 3.0 {INR} Normal [facility] Comment on above: Performed By: #### L 300.3900 #### [facility] [address] [place], [address] PT Coag (PPP) [Time] 32.1 s High 11.7-14.9 [facility] Comment on above: Performed By: #### L 300.3900 #### [facility] [address] [place], [address] Prothrombin timeOrdered By: Cortez Louie on 07-12-2024 PT Coag (PPP) [Time] 32.1 s High 11.7-14.9 [facility] Anion gap in Serum or Plasma Ordered By: Cortez Louie on 07-05-2024 Anion gap [Moles/Vol] 12 mmol/L - [facility] BUN/creatinine ratioOrdered By: Cortez Louie on 07-05-2024 Urea nitrogen/Creatinine [Mass ratio] 22.3 mg/mg High - [facility] Basic Metabolic Profile (BMP )on 07-05-2024 BUN/CRE 22.3 RATIO High 12-09 [facility] Comment on above: Order Comment: DO AL AMARI WITH BMP Performed By: #### L 100.0100, L500.2500 #### [facility] [address] [place], [address] Calcium [Mass/Vol] 11.2 mg/dL High 7.6-11.0 [facility] Comment on above: Order Comment: DO AL AMARI WITH BMP Performed By: #### L 100.0100, L500.2500 #### [facility] [address] [place], [address] Chloride [Moles/Vol] 100 mmol/L Normal 98-108 [facility] Comment on above: Order Comment: DO AL AMARI WITH BMP Performed By: #### L 100.0100, L500.2500 #### [facility] [address] [place], [address] CO2 [Moles/Vol] 26.5 mmol/L Normal 21.0-32.0 [facility] Comment on above: Order Comment: DO AL AMARI WITH BMP Performed By: #### L 100.0100, L500.2500 #### [facility] [address] [place], [address] Creatinine [Mass/Vol] 2.79 mg/dL High 0.70-1.20 [facility] Comment on above: Order Comment: DO AL AMARI WITH BMP Performed By: #### L 100.0100, L500.2500 #### [facility] [address] [place], [address] GAP 12 Normal 5-15 [facility] Comment on above: Order Comment: DO AL AMARI WITH BMP Performed By: #### L 100.0100, L500.2500 #### [facility] [address] [place], [address] GFR/1.73 sq M.predicted among non-blacks MDRD (S/P/Bld) [Vol rate/Area] 16 mL/min/{1.73_m2} Low >60 [facility] Comment on above: Order Comment: DO AL AMARI WITH BMP Result Comment: mL/m in/1.73m2 CKD-EPI Creatinine Equation (2020) Performed By: #### L 100.0100, L500.2500 #### [facility] [address] [place], [address] Glucose [Mass/Vol] 93 mg/dL Normal 70-99 [facility] Comment on above: Order Comment: DO AL AMARI WITH BMP Performed By: #### L 100.0100, L500.2500 #### [facility] [address] [place], [address] Potassium [Moles/Vol] 4.2 mmol/L Normal 3.3-5.1 [facility] Comment on above: Order Comment: DO AL AMARI WITH BMP Performed By: #### L 100.0100, L500.2500 #### [facility] [address] [place], [address] Sodium [Moles/Vol] 139 mmol/L Normal 133-145 [facility] Comment on above: Order Comment: DO AL AMARI WITH BMP Performed By: #### L 100.0100, L500.2500 #### [facility] [address], [address] Urea nitrogen [Mass/Vol] 62 mg/dL High 4-19 [facility] Comment on above: Order Comment: DO AL AMARI WITH BMP Performed By: #### L 100.0100, L500.2500 #### [facility] [address] [place], [address] Carbon dioxide, total [Moles /volume] in Central venous bloodOrdered By: Cortez Louie on 07-05-2024 CO2 [Moles/Vol] 26.5 mmol/L 21.0-32.0 [facility] Chloride assayOrdered By: Lei Louie on 07-05-2024 Chloride [Moles/Vol] 100 mmol/L 98-108 [facility] Glomerular filtration rate ( GFR) estimation/1.73 sq m using serum, plasma, or whole bOrdered By: Cortez Louie on 07-05-2024 GFR/1.73 sq M.predicted among non-blacks MDRD (S/P/Bld) [Vol rate/Area] 16 mL/min/{1.73_m2} Low >60 [facility] Comment on above: mL/min/1.73m2 CKD-EP I Creatinine Equation (2020) Potassium measurement (mass/ volume)Ordered By: Cortez Louie on 07-05-2024 Potassium (Unsp spec) [Mass/Vol] 4.2 mmol/L 3.3-5.1 [facility] Prothrombin Time w/INRon INR Coag (PPP) [Relative time] 3.9 {INR} Normal [facility] Comment on above: Order Comment: Comme nts: DO ALONG WITH BMP Performed By: #### L 100.0100, L500.2500 #### [facility] [address] [place], [address] PT Coag (PPP) [Time] 38.7 s High 11.7-14.9 [facility] Comment on above: Order Comment: Comme nts: DO ALONG WITH BMP Performed By: #### L 100.0100, L500.2500 #### [facility] [address] [place], [address] Serum creatinine measurement (mass/volume)Ordered By: Cortez Louie on 07-05-2024 Creatinine [Mass/Vol] 2.79 mg/dL High 0.70-1.20 [facility] Serum glucose measurement (m ass/volume)Ordered By: Cortez Louie on 07-05-2024 Glucose [Mass/Vol] 93 mg/dL 70-99 [facility] Serum or plasma calcium geoffrey urement (mass/volume)Ordered By: Cortez Louie on 07-05-2024 Calcium [Mass/Vol] 11.2 mg/dL High 7.6-11.0 [facility] Serum or plasma urea nitroge n measurement (mass/volume)Ordered By: Cortez Louie on 07-05-2024 Urea nitrogen [Mass/Vol] 62 mg/dL High 4-19 [facility] Sodium levelOrdered By: Sarita Louie on 07-05-2024 Sodium [Moles/Vol] 139 mmol/L 133-145 [facility] .Auto Diffon 07-02-2024 Basophil, Absolute 0.0 10 3/mcL Normal 0.0-0.3 [facility] Comment on above: Performed By: #### A SEDRICK, CBC, ADIFF #### [address] [address] Basophils/100 WBC (Bld) 0.2 % Normal 0.0-2.5 [facility] Comment on above: Performed By: #### A SEDRICK, CBC, ADIFF #### [address] [address] Eosinophil, Absolute 0.0 10 3/mcL Normal 0.0-0.7 [facility] Comment on above: Performed By: #### A SEDRICK, CBC, ADIFF #### [address] [address] Eosinophils/100 WBC (Bld) 0.0 % Normal 0.0-6.[address] [facility] Comment on above: Performed By: #### A SEDRICK, CBC, ADIFF #### [facility] [address] [place] [address] Lymphocyte, Absolute 0.4 10 3/mcL Low 0.9-4.3 [facility] Comment on above: Performed By: #### A SEDRICK, CBC, ADIFF #### [facility] [address] [place] [address] Lymphocytes/100 WBC (Bld) 9.4 % Low 20.0-40.[address] [facility] Comment on above: Performed By: #### A SEDRICK, CBC, ADIFF #### [facility] [address] [place] [address] Monocyte, Absolute 0.1 10 3/mcL Normal 0.1-1.4 [facility] Comment on above: Performed By: #### A SEDRICK, CBC, ADIFF #### [address] [address] Monocytes/100 WBC (Bld) 1.1 % Low 2.0-13.0 [facility] Comment on above: Performed By: #### A SEDRICK, CBC, ADIFF #### [facility] [address] [place] [address] Neutrophils/100 WBC (Bld) 89.3 % High 50.0-75.[address] [facility] Comment on above: Performed By: #### A SEDRICK, CBC, ADIFF #### [address] [address] .GFRon 07-02-2024 Estimated Glomerular Filtration Rate 18 ml/min/1.73sqm [facility] MAIN Comment on above: Result Comment: Stages of Chronic Kidney Disease (CKD) Stage Description eGFR(ml/min/1.73 sq.m.) CKD 1 Normal kidney function or >=90 normal kindney function with possible kidney damage (ex. Proteinuria) CKD 2 Kidney damage with mild loss 60-89 of kidney function CKD 3a Mild to moderate loss of kidney 45-59 function CKD 3b Moderate to severe loss of 30-44 of kindey function CKD 4 Severe loss of kidney function 15-29 CKD 5 Kidney failure <15 Note: (go live 2024) the eGFR calculation was updated to the 2020 CKD-EPI creatinine equation without a race factor to calculate the eGFR results. Performed By: #### A SEDRICK, CBC, ADIFF #### [address] [address] .NEUABSon 07-02-2024 Neutrophil, Absolute 4.1 10 3/mcL Normal 2.3-8.1 [facility] MAIN Comment on above: Performed By: #### A SEDRICK, CBC, ADIFF #### [address] [address] BMPon 07-02-2024 BUN/Creatinine Ratio 23.1 ratio High 10.0-22.0 [facility] MAIN Comment on above: Performed By: #### A SEDRICK, CBC, ADIFF #### [address] [address] Calcium [Mass/Vol] 9.4 mg/dL Normal 8.7-10.4 [facility] MAIN Comment on above: Performed By: #### A SEDRICK, CBC, ADIFF #### [address] [address] Chloride [Moles/Vol] 109 mmol/L Normal 98-110 [facility] MAIN Comment on above: Performed By: #### A SEDRICK, CBC, ADIFF #### [address] [address] CO2 [Moles/Vol] 22 mmol/L Normal 22-[address] [facility] MAIN Comment on above: Performed By: #### A SEDRICK, CBC, ADIFF #### [address] [address] Creatinine [Mass/Vol] 2.64 mg/dL High 0.50-1.20 [facility] MAIN Comment on above: Result Comment: Test ing performed on [employer] analyzer using enzymatic creatinine methodology. Performed By: #### A SEDIRCK, CBC, ADIFF #### [address] [address] Electrolyte Balance 8.0 mEq/L Normal 4.0-15.0 [facility] MAIN Comment on above: Performed By: #### A SEDRICK, CBC, ADIFF #### [address] [address] Glucose [Mass/Vol] 128 mg/dL High 82-115 [facility] MAIN Comment on above: Performed By: #### A SEDRICK, CBC, ADIFF #### [address] [address] Potassium [Moles/Vol] 4.5 mmol/L Normal 3.5-5.0 [facility] MAIN Comment on above: Performed By: #### A SEDRICK, CBC, ADIFF #### [address] [address] Sodium [Moles/Vol] 139 mmol/L Normal 136-145 [facility] MAIN Comment on above: Performed By: #### A SEDRICK, CBC, ADIFF #### [address] [address] Urea nitrogen [Mass/Vol] 61.0 mg/dL High 8.0-22.[address] [facility] MAIN Comment on above: Performed By: #### A SEDRICK, CBC, ADIFF #### [address] [address] CBCon 07-02-2024 Erythrocyte distribution width (RBC) [Ratio] 14.8 % Normal 11.5-15.[address] [facility] MAIN Comment on above: Order Comment: order ed secondary to warfarin order Performed By: #### A SEDRICK, CBC, ADIFF #### [address] [address] Hematocrit (Bld) [Volume fraction] 28.5 % Low 34.0-46.[address] [facility] MAIN Comment on above: Order Comment: order ed secondary to warfarin order Performed By: #### A SEDRICK, CBC, ADIFF #### [address] [address] Hgb 9.6 G/dL Low 12.0-16.[address] [facility] MAIN Comment on above: Order Comment: order ed secondary to warfarin order Performed By: #### A SEDRICK, CBC, ADIFF #### [address] [address] MCH (RBC) [Entitic mass] 34.4 pg High 27.0-33.[address] [facility] MAIN Comment on above: Order Comment: order ed secondary to warfarin order Performed By: #### A SEDRICK CBC, ADIFF #### [place] [address] MCHC 33.8 G/dL Normal 32.0-36.[address] [facility] MAIN Comment on above: Order Comment: order ed secondary to warfarin order Performed By: #### A SEDRICK CBC, ADIFF #### [place] [address] MCV (RBC) [Entitic vol] 101.9 fL High 80.0-99.0 [facility] MAIN Comment on above: Order Comment: order ed secondary to warfarin order Performed By: #### A SEDRICK CBC, ADIFF #### [place] [address] Platelet 227 10 3/mcL Normal 150-[address] [facility] MAIN Comment on above: Order Comment: order ed secondary to warfarin order Performed By: #### A SEDRICK CBC, ADIFF #### [place] [address] Platelet mean volume (Bld) [Entitic vol] 7.5 fL Normal 6.6-10.[address] [facility] MAIN Comment on above: Order Comment: order ed secondary to warfarin order Performed By: #### A SEDRICK CBC, ADIFF #### [place] [address] RBC 2.80 10 6/mcL Low 4.10-5.[address] [facility] MAIN Comment on above: Order Comment: order ed secondary to warfarin order Performed By: #### A SEDRICK CBC, ADIFF #### [place] [address] WBC 4.6 10 3/mcL Normal 4.5-10.[address] [facility] MAIN Comment on above: Order Comment: order ed secondary to warfarin order Performed By: #### A SEDRICK CBC, ADIFF #### [place] [address] LABORATORYOrdered By: SYSTEM SYSTEM on 07-02-2024 Basophils (Bld) [#/Vol] 0.0 103/mcL Normal 0.0 - 0.3 10^3/mcL AH Workflow SS Basophils/100 WBC (Bld) 0.2 % Normal 0.0 - 2.5 % AH Workflow SS Calcium [Mass/Vol] 9.4 mg/dL Normal 8.7 - 10. 4 mg/dL ADM SS Chloride [Moles/Vol] 109 mmol/L Normal 98 - 11 0 mEq/L ADM SS CO2 [Moles/Vol] 22 mmol/L Normal 22 - 32 mEq/L ADM SS Creatinine [Mass/Vol] 2.64 mg/dL High 0.50 - 1.20 mg/dL ADM SS Comment on above: Interpretive Data: T esting performed on [employer] analyzer using enzymatic creatinine methodology. Electrolyte Balance 8.0 mEq/L Normal 4.0 - 15 .0 mEq/L ADM SS Eosinophils (Bld) [#/Vol] 0.0 103/mcL Normal 0.0 - 0.7 10^3/mcL Workflow SS Eosinophils/100 WBC (Bld) 0.0 % Normal 0.0 - 6.0 % Workflow SS Erythrocyte distribution width (RBC) [Ratio] 14.8 % Normal 11.5 - 15.5 % Workflow SS Estimated Glomerular Filtration Rate 18 ml/min/1.73sqm Invalid Interpretation Code Chemistry S Comment on above: Interpretive Data: Stages of Chronic Kidney Disease (CKD) Stage Description eGFR(ml/min/1.73 sq.m.) CKD 1 Normal kidney function or >=90 normal kindney function with possible kidney damage (ex. Proteinuria) CKD 2 Kidney damage with mild loss 60-89 of kidney function CKD 3a Mild to moderate loss of kidney 45-59 function CKD 3b Moderate to severe loss of 30-44 of kindey function CKD 4 Severe loss of kidney function 15-29 CKD 5 Kidney failure <15 Note: (go live 2024) the eGFR calculation was updated to the 2020 CKD-EPI creatinine equation without a race factor to calculate the eGFR results. Glucose [Mass/Vol] 128 mg/dL High 82 - 115 mg/dL ADM SS Hematocrit (Bld) [Volume fraction] 28.5 % Low 34.0 - 46.0 % Workflow SS Hemoglobin (Bld) [Mass/Vol] 9.6 G/dL Low 12.0 - 16.0 G/dL Workflow SS Lymphocytes (Bld) [#/Vol] 0.4 103/mcL Low 0.9 - 4.3 10^3/mcL AH Workflow SS Lymphocytes/100 WBC (Bld) 9.4 % Low 20.0 - 40.0 % Workflow SS MCH (RBC) [Entitic mass] 34.4 pg High 27. 0 - 33.0 pg AH Workflow SS MCHC 33.8 G/dL Normal 32.0 - 36.0 G/dL Workflow SS MCV (RBC) [Entitic vol] 101.9 fL High 80.0 - 99.0 fL Workflow SS Monocytes (Bld) [#/Vol] 0.1 103/mcL Normal 0.1 - 1.4 10^3/mcL Workflow SS Monocytes/100 WBC (Bld) 1.1 % Low 2.0 - 13.0 % AH Workflow SS Neutrophils (Bld) [#/Vol] 4.1 103/mcL Normal 2.3 - 8.1 10^3/mcL Workflow SS Neutrophils/100 WBC (Bld) 89.3 % High 50.0 - 75.0 % Workflow SS Platelet mean volume (Bld) [Entitic vol] 7.5 fL Normal 6.6 - 10.5 fL Workflow SS Platelets (Bld) [#/Vol] 227 103/mcL Normal 150 - 450 10^3/mcL Workflow SS Potassium [Moles/Vol] 4.5 mmol/L Normal 3.5 - 5.0 mEq/L ADM SS PT Coag (PPP) [Time] 35.6 s High 9.0 - 1 4.4 seconds [facility] Comment on above: Interpretive Data: E ffective 09/04/07, Protime results may be affected by some antibiotics (i.e. Ciprofloxacin, Azithromycin, Bactrim) which may potentiate the action of oral anticoagulants, with further increases in Protime/INR. PT International Ratio 3.1 ratio Invalid Interpretation Code [facility] Comment on above: Interpretive Data: Lowell gomez [employer] (CHEST, 1992, 102:312S-25S) recommended therapeutic range for oral anticoagulant therapy is: LOW RISK: Prophylaxis of venous thrombosis INR: 2.0-3.0 Treatment of pulmonary embolism 2.0-3.0 Prevention of systemic embolism 2.0-3.0 HIGH RISK: Mechanical prosthetic valves 2.5-3.5 RBC (Bld) [#/Vol] 2.80 106/mcL Low 4.10 - 5.3 0 10^6/mcL Workflow SS Sodium [Moles/Vol] 139 mmol/L Normal 136 - 145 mEq/L AH ADM SS Urea nitrogen [Mass/Vol] 61.0 mg/dL High 8.0 - 22.0 mg/dL AH ADM SS Urea nitrogen/Creatinine [Mass ratio] 23.1 ratio High 10.0 - 22.0 ratio AH ADM SS WBC (Bld) [#/Vol] 4.6 103/mcL Normal 4.5 - 10.8 10^3/mcL AH Workflow SS PROon 07-02-2024 INR Coag (PPP) [Relative time] 3.1 {INR} Normal [facility] MAIN Comment on above: Order Comment: order ed secondary to warfarin order Result Comment: [employer] (CHEST, 1992, 102:312S-25S) recommended therapeutic range for oral anticoagulant therapy is: LOW RISK: Prophylaxis of venous thrombosis INR: 2.0-3.0 Treatment of pulmonary embolism 2.0-3.0 Prevention of systemic embolism 2.0-3.0 HIGH RISK: Mechanical prosthetic valves 2.5-3.5 Performed By: #### A SEDRICK, CBC, ADIFF #### [place] [address] PT Coag (PPP) [Time] 35.6 s High 9.0-14.4 [facility] MAIN Comment on above: Order Comment: order ed secondary to warfarin order Result Comment: Effe ctive 09/04/07, Protime results may be affected by some antibiotics (i.e. Ciprofloxacin, Azithromycin, Bactrim) which may potentiate the action of oral anticoagulants, with further increases in Protime/INR. Performed By: #### A SEDRICK, CBC, ADIFF #### [address] [address] .GFRon 07-01-2024 Estimated Glomerular Filtration Rate 19 ml/min/1.73sqm [facility] MAIN Comment on above: Result Comment: Stages of Chronic Kidney Disease (CKD) Stage Description eGFR(ml/min/1.73 sq.m.) CKD 1 Normal kidney function or >=90 normal kindney function with possible kidney damage (ex. Proteinuria) CKD 2 Kidney damage with mild loss 60-89 of kidney function CKD 3a Mild to moderate loss of kidney 45-59 function CKD 3b Moderate to severe loss of 30-44 of kindey function CKD 4 Severe loss of kidney function 15-29 CKD 5 Kidney failure <15 Note: (go live 2024) the eGFR calculation was updated to the 2020 CKD-EPI creatinine equation without a race factor to calculate the eGFR results. Performed By: #### P RO, ABSGEL, BMP, ABOGEL, GFR #### [address] [address] ABO/Rh (Gel)on 07-01-2024 ABO/Rh Interp Positive Invalid Interpretation Code [facility] MAIN Comment on above: Performed By: #### A SEDRICK, CBC, ADIFF #### [address] [address] ABS (Gel)on 07-01-2024 ABSC Interp (Gel) Negative Normal [facility] MAIN Comment on above: Performed By: #### A SEDRICK, CBC, ADIFF #### [address] [address] BMPon 07-01-2024 BUN/Creatinine Ratio 20.7 ratio Normal 10.0-22.0 [facility] MAIN Comment on above: Performed By: #### P RO, ABSGEL, BMP, ABOGEL, GFR #### [address] [address] Calcium [Mass/Vol] 8.5 mg/dL Low 8.7-10.4 [facility] MAIN Comment on above: Performed By: #### P RO, ABSGEL, BMP, ABOGEL, GFR #### [address] [address] Chloride [Moles/Vol] 112 mmol/L High 98-110 [facility] MAIN Comment on above: Performed By: #### P RO, ABSGEL, BMP, ABOGEL, GFR #### [address] [address] CO2 [Moles/Vol] 20 mmol/L Low 22-[address] [facility] MAIN Comment on above: Performed By: #### P RO, ABSGEL, BMP, ABOGEL, GFR #### [address] [address] Creatinine [Mass/Vol] 2.51 mg/dL High 0.50-1.20 [facility] MAIN Comment on above: Result Comment: Test ing performed on [employer] analyzer using enzymatic creatinine methodology. Performed By: #### P RO, ABSGEL, BMP, ABOGEL, GFR #### [address] [address] Electrolyte Balance 12.0 mEq/L Normal 4.0-15.0 [facility] MAIN Comment on above: Performed By: #### P RO, ABSGEL, BMP, ABOGEL, GFR #### [address] [address] Glucose [Mass/Vol] 69 mg/dL Low 82-115 [facility] MAIN Comment on above: Performed By: #### P RO, ABSGEL, BMP, ABOGEL, GFR #### [address] [address] Potassium [Moles/Vol] 3.0 mmol/L Low 3.5-5.0 [facility] MAIN Comment on above: Performed By: #### P RO, ABSGEL, BMP, ABOGEL, GFR #### [address] [address] Sodium [Moles/Vol] 144 mmol/L Normal 136-145 [facility] MAIN Comment on above: Performed By: #### P RO, ABSGEL, BMP, ABOGEL, GFR #### [address] [address] Urea nitrogen [Mass/Vol] 52.0 mg/dL High 8.0-22.[address] [facility] MAIN Comment on above: Performed By: #### P RO, ABSGEL, BMP, ABOGEL, GFR #### [address] [address] LABORATORYOrdered By: Stacy Worthington on 07-01-2024 ABO and Rh group Nom (Bld) Blood group A Rh(D) positive Invalid Interpretation Code AH BB Auto SS Blood group antibody screen Ql Negative ABSC (07/01/24 12:14 PM) Normal AH BB Auto SS LABORATORYOrdered By: [employer] SYSTEM on 07-01-2024 Calcium [Mass/Vol] 8.5 mg/dL Low 8.7 - 10. 4 mg/dL ADM SS Chloride [Moles/Vol] 112 mmol/L High 98 - 11 0 mEq/L ADM SS CO2 [Moles/Vol] 20 mmol/L Low 22 - 32 mEq/L ADM SS Creatinine [Mass/Vol] 2.51 mg/dL High 0.50 - 1.20 mg/dL ADM SS Comment on above: Interpretive Data: T esting performed on [employer] analyzer using enzymatic creatinine methodology. Electrolyte Balance 12.0 mEq/L Normal 4.0 - 15 .0 mEq/L ADM SS Estimated Glomerular Filtration Rate 19 ml/min/1.73sqm Invalid Interpretation Code Chemistry S Comment on above: Interpretive Data: Stages of Chronic Kidney Disease (CKD) Stage Description eGFR(ml/min/1.73 sq.m.) CKD 1 Normal kidney function or >=90 normal kindney function with possible kidney damage (ex. Proteinuria) CKD 2 Kidney damage with mild loss 60-89 of kidney function CKD 3a Mild to moderate loss of kidney 45-59 function CKD 3b Moderate to severe loss of 30-44 of kindey function CKD 4 Severe loss of kidney function 15-29 CKD 5 Kidney failure <15 Note: (go live 2024) the eGFR calculation was updated to the 2020 CKD-EPI creatinine equation without a race factor to calculate the eGFR results. Glucose [Mass/Vol] 69 mg/dL Low 82 - 115 mg/dL ADM SS Potassium [Moles/Vol] 3.0 mmol/L Low 3.5 - 5.0 mEq/L ADM SS PT Coag (PPP) [Time] 29.1 s High 9.0 - 1 4.4 seconds [facility] SS Comment on above: Interpretive Data: E ffective 09/04/07, Protime results may be affected by some antibiotics (i.e. Ciprofloxacin, Azithromycin, Bactrim) which may potentiate the action of oral anticoagulants, with further increases in Protime/INR. PT International Ratio 2.5 ratio Invalid Interpretation Code [facility] SS Comment on above: Interpretive Data: T patricia [employer] (CHEST, 1992, 102:312S-25S) recommended therapeutic range for oral anticoagulant therapy is: LOW RISK: Prophylaxis of venous thrombosis INR: 2.0-3.0 Treatment of pulmonary embolism 2.0-3.0 Prevention of systemic embolism 2.0-3.0 HIGH RISK: Mechanical prosthetic valves 2.5-3.5 Sodium [Moles/Vol] 144 mmol/L Normal 136 - 145 mEq/L ADM SS Urea nitrogen [Mass/Vol] 52.0 mg/dL High 8.0 - 22.0 mg/dL AH ADM SS Urea nitrogen/Creatinine [Mass ratio] 20.7 ratio Normal 10.0 - 22.0 ratio AH ADM SS PROon 07-01-2024 INR Coag (PPP) [Relative time] 2.5 {INR} Normal [facility] MAIN Comment on above: Result Comment: [employer] (CHEST, 1992, 102:312S-25S) recommended therapeutic range for oral anticoagulant therapy is: LOW RISK: Prophylaxis of venous thrombosis INR: 2.0-3.0 Treatment of pulmonary embolism 2.0-3.0 Prevention of systemic embolism 2.0-3.0 HIGH RISK: Mechanical prosthetic valves 2.5-3.5 Performed By: #### A SEDRICK, CBC, ADIFF #### [address] [address] PT Coag (PPP) [Time] 29.1 s High 9.0-14.4 [facility] MAIN Comment on above: Result Comment: Effe ctive 09/04/07, Protime results may be affected by some antibiotics (i.e. Ciprofloxacin, Azithromycin, Bactrim) which may potentiate the action of oral anticoagulants, with further increases in Protime/INR. Performed By: #### A SEDRICK, CBC, ADIFF #### [address] [address] 12 Lead EKG performed [place] [facility] [place] 06-28-2024 12 Lead EKG performed by [facility] [address] [place] [address] 12 Lead EKG performed by [facility] 06/28/24 0600 MR#: [id number] Acct: [id number] Name: DONNA NARANJO I Rep #: [id number] : 1940 83 From: Cortez Louie NP [employer]C Attending Dr: Cortez Louie, [employer] Status: DEP A MB Ordering Dr: Cortez Louie NP [employer] Date: 06/28/24 [place] [facility] Sex: F C Admitted: BMS/12 Lead EKG performed by [facility] ECG Report Interpretation -------Sinus Rhythm -Intraventricular conduction defect and left axis -possible anterior fascicular block consider ventricular hypertrophy. - Anteroseptal -lateral infarct Old. -Nonspecific ST depression -Seen with left ventricular hypertrophy (strain). ABNORMAL Electronically signed on 07/02/2024 at 08:13 by Alex [employer] Version [id number] 07/02/2416 Date Cortez Louie [employer] CC: Dr. Mireille Garnica MD Date Dictated: 06/28/24599 Date Transcribed: 06/28/24599 Lead Qa Analyst: GENNARO Signed Normal [facility] Absolute lymphocyte countOrd ered By: Cortez Louie on 06-28-2024 Lymphocytes Auto (Unsp spec) [#/Vol] 0.83 10*3/uL 0.83-4.51 [facility] Absolute neutrophil countOrd ered By: Cortez Louie on 06-28-2024 Neutrophils (Bld) [#/Vol] 5.4 10*3/uL 2.0-7.7 [facility] Automated lymphocyte count a s percentage of total leukocytesOrdered By: Cortez Louie on 06-28-2024 Lymphocytes/100 WBC Auto (Unsp spec) 10.2 % Low 19-41 [facility] Basic Metabolic Profile (BMP )on 06-28-2024 BUN/CRE 21.5 RATIO High 10-20 [facility] Comment on above: Performed By: #### L [id number] #### [facility] [address] [place], [address] Calcium [Mass/Vol] 10.1 mg/dL Normal 7.6-11.0 [facility] Comment on above: Performed By: #### L [id number] #### [facility] [address] [place], [address] Chloride [Moles/Vol] 104 mmol/L Normal 98-108 [facility] Comment on above: Performed By: #### L [id number] #### [facility] [address] [place], [address] CO2 [Moles/Vol] 21.4 mmol/L Normal 21.0-32.0 [facility] Comment on above: Performed By: #### L [id number] #### [facility] [address] [place], [address] Creatinine [Mass/Vol] 2.75 mg/dL High 0.70-1.20 [facility] Comment on above: Performed By: #### L [id number] #### [facility] [address] [place], [address] GAP 14 Normal 5-15 [facility] Comment on above: Performed By: #### L [id number] #### [facility] [address] [place], [address] GFR/1.73 sq M.predicted among non-blacks MDRD (S/P/Bld) [Vol rate/Area] 17 mL/min/{1.73_m2} Low >60 [facility] Comment on above: Result Comment: mL/m in/1.73m2 CKD-EPI Creatinine Equation (2020) Performed By: #### L [id number] #### [facility] [address] [place], [address] Glucose [Mass/Vol] 83 mg/dL Normal 70-99 [facility] Comment on above: Performed By: #### L [id number] #### [facility] [address] [place], [address] Potassium [Moles/Vol] 4.0 mmol/L Normal 3.3-5.1 [facility] Comment on above: Performed By: #### L [id number] #### [facility] [address], [address] Sodium [Moles/Vol] 139 mmol/L Normal 133-145 [facility] Comment on above: Performed By: #### L [id number] #### [facility] [address] [place], [address] Urea nitrogen [Mass/Vol] 59 mg/dL High 4-19 [facility] Comment on above: Performed By: #### L [id number] #### [facility] [address] [place], [address] Basophil percentageOrdered B y: Cortez Louie on 06-28-2024 Basophils/100 WBC (Bld) 1.2 % High 0-1 [facility] CBC W/Diff, Automatedon 05-0 Absolute Lymph 0.83 X10 3/uL Normal 0.83-4.51 [facility] Comment on above: Performed By: #### L [id number] #### [facility] [address] [place], [address] Absolute Neut 5.4 X10 3/uL Normal 2.0-7.7 [facility] Comment on above: Performed By: #### L 300.3900 #### [facility] [address] [place], [address] Basophils/100 WBC (Bld) 1.2 % High 0-1 [facility] Comment on above: Performed By: #### L [id number] #### [facility] [address] [place], [address] Eosinophils/100 WBC (Bld) 4.8 % Normal 0-5 [facility] Comment on above: Performed By: #### L [id number] #### [facility] [address] [place], [address] Erythrocyte distribution width (RBC) [Ratio] 14.2 % Normal 11.6-14.6 [facility] Comment on above: Performed By: #### L [id number] #### [facility] [address] [place], [address] Hematocrit (Bld) [Volume fraction] 34.3 % Low 37-47 [facility] Comment on above: Performed By: #### L [id number] #### [facility] [address] [place], [address] Hemoglobin (Bld) [Mass/Vol] 11.3 g/dL Low 12.0-15.0 [facility] Comment on above: Performed By: #### L 300.3900 #### [facility] [address] [place], [address] IG% 0.500 Normal 0.0-0.9 [facility] Comment on above: Result Comment: IG% - Immature Granulocytes (promyelocytes, myelocytes and metamyelocytes) > 1% indicates that a LEFT SHIFT is Present. Performed By: #### L [id number] #### [facility] [address] [place], [address] Lymphocytes/100 WBC (Bld) 10.2 % Low 19-41 [facility] Comment on above: Performed By: #### L [id number] #### [facility] [address] [place], [address] MCH (RBC) [Entitic mass] 33.7 pg High 27.0-32.0 [facility] Comment on above: Performed By: #### L [id number] #### [facility] [address] [place], [address] MCHC (RBC) [Mass/Vol] 32.9 g/dL Normal 32-36 [facility] Comment on above: Performed By: #### L [id number] #### [facility] [address] [place], [address] MCV (RBC) [Entitic vol] 102.4 fL High 81-99 [facility] Comment on above: Performed By: #### L [id number] #### [facility] [address] [place], [address] Monocytes/100 WBC (Bld) 16.8 % High 0-10 [facility] Comment on above: Performed By: #### L [id number] #### [facility] [address] [place], [address] Neutrophils/100 WBC (Bld) 66.5 % Normal 47-70 [facility] Comment on above: Performed By: #### L [id number] #### [facility] [place], [address] Nucleated RBC (Bld) [#/Vol] 0 10*3/uL Normal 0-5 [facility] Comment on above: Performed By: #### L [id number] #### [facility] [place], [address] Platelet mean volume (Bld) [Entitic vol] 9.6 fL Normal 6.2-12.0 [facility] Comment on above: Performed By: #### L 300.3900 #### [facility] [address] [place], [address] Platelets (Bld) [#/Vol] 281 10*3/uL Normal 150-450 [facility] Comment on above: Performed By: #### L 300.3900 #### [facility] [address] [place], [address] RBC (Bld) [#/Vol] 3.35 10*6/uL Low 4.2-5.4 [facility] Comment on above: Performed By: #### L 300.3900 #### [facility] [address] [place], [address] RDW SD 53.1 fl High 35.1-43.9 [facility] Comment on above: Performed By: #### L 300.3900 #### [facility] [address] [place], [address] WBC (Bld) [#/Vol] 8.2 10*3/uL Normal 4.4-11.0 [facility] Comment on above: Performed By: #### L 300.3900 #### [facility] [address] [place], [address] Cardiology Visit Reporton Cardiology Visit Report [facility] [address] [place], [place] [address] OFFICE VISIT Date of Service: 06/28/24 MR#: [id number] Acct: [id number] Name: DONNA NARANJO I Rep #: [id number] : 1940 Provider: AB rivas Age/Sex: 83/F Location: [facility] Status: Signed HPI HPI History of Present Illness Details: This is an 83-year-old female who presents to the office today for cardiovascular follow-up visit. She has a past medical history significant for rheumatic heart disease status post mitral and aortic valve replacements with prosthetic valves. She has history of paroxysmal atrial fibrillation/flutte r. She has had multiple cardioversions done in the past. Echocardiogram in April 2024 showed an ejection fraction of 40% and stable mechanical mitral valve apparatus. From a cardiac standpoint, the patient is doing well. She does have occasional palpitations-she describes this as a rapid/heart beat. She states she is scheduled for an ablation at [facility] on Monday. She denies chest pain, pressure or heaviness. She does have SOB with exertion-this is nothing new or worsening. She denies Orthopnea, and PND. She does not have bleeding issues; no blood in urine, stool, or nosebleeds. She does acknowledge fatigue. She denies myalgias, or claudication. She does not have edema, or sudden weight gain. She does have occasional lightheadedness with quick positional changes. She denies dizziness, syncopal or near syncopal episodes, and headaches. Intake Vital Signs 12/28/23 11:25 05/07/24 13:05 06/28/24 06:00 Height 5 ft 3 in 5 ft 3 in 5 ft 3 in Weight: 138 lb BMI 24.4 BP 114/76 Blood Pressure Location Lt brachial Position Sitting Respiration 18 Pulse 89 Pulse Source Monitor Pulse Oximetry (%) 96 Intake Visit Reasons: 6 M Intelligence Research Specialist Required: No Is patient in pain?: No Allergies latex Allergy (Verified 06/28/24 12:34) Itching Penicillins Allergy (Verified 06/28/24 12:34) Rash Medications ???Medication ???Instructions ???Recorded ???Confirmed ???Type aspirin 81 mg chewable tablet 81 mg PO DAILY@0800 08/12/1406/28 History ascorbic acid (vitamin C) 1,000 mg 1 g PO DAILY 07/26/18 06/28/24 H istory tablet BP Machine and Cuff #1 ea 02/24/21 06/28/24 Rx acetaminophen 650 mg 1,300 mg PO Q12H 01/03/22 06/28/24 History tablet,extended release cholecalciferol (vitamin D3) 125 125 mcg PO DAILY 01/03/22 06/28/24 History mcg (5,000 unit) tablet simvastatin 20 mg tablet 20 mg PO QPM #90 tabs 05/02/2311/14 Rx amiodarone 200 mg tablet 200 mg PO QDAY #30 tabs 01/26/24 0 06/28/24 Rx enoxaparin 60 mg/0.6 mL 60 mg (0.6 mL) subcut .COMPLEX PRN 02/22/24 06/28/24 Rx subcutaneous syringe Bridging #6 mL furosemide 40 mg tablet 40 mg PO .COMPLEX #90 tabs 5 06/28/24 Rx losartan 25 mg tablet 25 mg PO DAILY #90 tabs 03/29/24 0 06/28/24 Rx warfarin 1 mg tablet 1 mg PO .COMPLEX #180 tabs 5 06/28/24 Rx Ejection fraction %: 40 Have you fallen in the past year?: Yes PFSH Medical History Fatigue Bradycardia Sacroiliitis Dyspnea on exertion Low back pain Lightheadedness Osteopenia after menopause Right knee DJD Chondrocalcinosis of knee Lumbar degenerative disc disease 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 Greater trochanteric bursitis Elevated TSH History of skin cancer Hx of osteopenia Hx of gallstones Hx of cataract Hx: UTI (urinary tract infection) History of back problems senior care current use of amiodarone RUIZ (dyspnea on exertion) Lichen sclerosus Cystocele with uterine descensus Shingles Hypersomnia, unspecified Migraines Psoriasis 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 Hyperlipidemia Atrial flutter, paroxysmal 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 Surgical History History of mitral valve replacement with mechanical valve ( 07/12/00) History of mechanical aortic valve replacement ( 01/20/15) History of surgery on arm History of right and left heart catheterization (12/26/14) History of thoracentesis (02/01/15) Hx of cholecystectomy Right Tibial ORIF History of cardioversion (12/28/18) H/O mitral valve replacement (07/12/00) H/O aortic valve replacement (01/20/15) Family History Other Adopted Social History household members: significant other housing: house current occupational status: retired current occupation: worked at [employer] sexually active: Yes Smoking Status: Never smoker Elec (more content not included)... Normal [facility] Eosinophil percentageOrdered By: Cortez Louie on 06-28-2024 Eosinophils/100 WBC (Bld) 4.8 % 0-5 [facility] Erythrocyte distribution wid th ratioOrdered By: Cortez Louie on 06-28-2024 Erythrocyte distribution width (RBC) [Ratio] 14.2 % 11.6-14.6 [facility] Erythrocyte distribution wid th standard deviationOrdered By: Cortez Louie on 06-28-2024 Erythrocyte distribution width (RBC) [Ratio] 53.1 fl High 35.1-43.9 [facility] Hematocrit Auto (Bld) [Volum e fraction]Ordered By: Cortez Louie on 06-28-2024 Hematocrit (Bld) [Volume fraction] 34.3 % Low 37-47 [facility] Hemoglobin measurementOrdere d By: Cortez Louie on 06-28-2024 Hemoglobin (Bld) [Mass/Vol] 11.3 g/dL Low 12.0-15.0 [facility] Immature granulocytes/100 WB C Auto (Bld)Ordered By: Cortez Louie on 06-28-2024 Immature granulocytes/100 WBC (Bld) 0.500 % 0.0-0.9 [facility] Comment on above: IG% - Immature Granu locytes (promyelocytes, myelocytes and metamyelocytes) > 1% indicates that a LEFT SHIFT is Present. L503.7505on 06-28-2024 Natriuretic peptide B (Bld) [Mass/Vol] 4501 pg/mL High <=1800 [facility] Comment on above: Result Comment: Hear t Failure Unlikely: < 300 pg/mL Heart Failure Likely < 50 Years: > 450 pg/mL 50-75 Years: > 900 pg/mL >75 Years: > 1800 pg/mL Performed By: #### L 300.3900 #### [facility] [address] [place], [address] MCV (mean corpuscular volume ) determinationOrdered By: Cortez Louie on 06-28-2024 MCV (RBC) [Entitic vol] 102.4 fL High 81-99 [facility] Mean corpuscular hemoglobin (MCH) determinationOrdered By: Cortez Louie on 06-28-2024 MCH (RBC) [Entitic mass] 33.7 pg High 27.0-32.0 [facility] Mean corpuscular hemoglobin concentration (MCHC) determinationOrdered By: Cortez Louie on 06-28-2024 MCHC (RBC) [Mass/Vol] 32.9 g/dL 32-36 [facility] Mean platelet volume determi nationOrdered By: Cortez Louie on 06-28-2024 Platelet mean volume (Bld) [Entitic vol] 9.6 fL 6.2-12.0 [facility] Monocyte percentageOrdered B y: Cortez Louie on 06-28-2024 Monocytes/100 WBC (Bld) 16.8 % High 0-10 [facility] Natriuretic peptide.B prohor rolanda N-Terminal [Mass/volume] in Serum or PlasmaOrdered By: Cortez Louie on 06-28-2024 Natriuretic peptide.B prohormone N-Terminal [Mass/Vol] 4501 pg/mL High <1800 [facility] Comment on above: Heart Failure Unlike ly: < 300 pg/mLHeart Failure Likely< 50 Years: > 450 pg/mL50-75 Years: > 900 pg/mL>75 Years: > 1800 pg/mL Neutrophil percentageOrdered By: Cortez Louie on 06-28-2024 Neutrophils/100 WBC (Bld) 66.5 % 47-70 [facility] Nucleated red blood cell per centageOrdered By: Cortez Louie on 06-28-2024 Nucleated RBC/100 WBC (Bld) [Ratio] 0 % 0-5 [facility] Platelet countOrdered By: Lei Louie on 06-28-2024 Platelets (Bld) [#/Vol] 281 10*3/uL 150-450 [facility] Prothrombin Time w/INRon INR Coag (PPP) [Relative time] 2.8 {INR} Normal [facility] Comment on above: Performed By: #### L 300.3900 #### [facility] [address] [place], [place], [id number] PT Coag (PPP) [Time] 30.2 s High 11.7-14.9 [facility] Comment on above: Performed By: #### L 300.3900 #### [facility] [address] [place], [address] RBC Auto (Bld) [#/Vol]Ordere d By: Cortez Louie on 06-28-2024 RBC (Bld) [#/Vol] 3.35 10*6/uL Low 4.2-5.4 [facility] White blood cell (WBC) count Ordered By: Cortez Louie on 06-28-2024 WBC (Bld) [#/Vol] 8.2 10*3/uL 4.4-11.0 [facility] .Auto Diffon 06-17-2024 Basophil, Absolute 0.1 10 3/mcL Normal 0.0-0.3 [facility] Comment on above: Performed By: #### G FR, CBC, ADIFF, ANEU, BMP #### [address] [address] Basophils/100 WBC (Bld) 1.4 % Normal 0.0-2.5 [facility] Comment on above: Performed By: #### G FR, CBC, ADIFF, ANEU, BMP #### [address] [address] Eosinophil, Absolute 0.4 10 3/mcL Normal 0.0-0.7 [facility] Comment on above: Performed By: #### G FR, CBC, ADIFF, ANEU, BMP #### [address] [address] Eosinophils/100 WBC (Bld) 6.5 % High 0.0-6.[address] [facility] Comment on above: Performed By: #### G FR, CBC, ADIFF, ANEU, BMP #### [address] [address] Lymphocyte, Absolute 0.7 10 3/mcL Low 0.9-4.3 [facility] Comment on above: Performed By: #### G FR, CBC, ADIFF, ANEU, BMP #### [address] [address] Lymphocytes/100 WBC (Bld) 11.8 % Low 20.0-40.[address] [facility] Comment on above: Performed By: #### G FR, CBC, ADIFF, ANEU, BMP #### [address] [address] Monocyte, Absolute 1.1 10 3/mcL Normal 0.1-1.4 [facility] Comment on above: Performed By: #### G FR, CBC, ADIFF, ANEU, BMP #### [address] [address] Monocytes/100 WBC (Bld) 18.0 % High 2.0-13.0 [facility] Comment on above: Performed By: #### G FR, CBC, ADIFF, ANEU, BMP #### [address] [address] Neutrophils/100 WBC (Bld) 62.3 % Normal 50.0-75.[address] [facility] Comment on above: Performed By: #### G FR, CBC, ADIFF, ANEU, BMP #### [address] [address] .GFRon 06-17-2024 Estimated Glomerular Filtration Rate 20 ml/min/1.73sqm Normal [facility] Comment on above: Result Comment: Stages of Chronic Kidney Disease (CKD) Stage Description eGFR(ml/min/1.73 sq.m.) CKD 1 Normal kidney function or >=90 normal kindney function with possible kidney damage (ex. Proteinuria) CKD 2 Kidney damage with mild loss 60-89 of kidney function CKD 3a Mild to moderate loss of kidney 45-59 function CKD 3b Moderate to severe loss of 30-44 of kindey function CKD 4 Severe loss of kidney function 15-29 CKD 5 Kidney failure <15 Note: (go live 2024) the eGFR calculation was updated to the 2020 CKD-EPI creatinine equation without a race factor to calculate the eGFR results. Performed By: #### G FR, CBC, ADIFF, ANEU, BMP #### [address] [address] .NEUABSon 06-17-2024 Neutrophil, Absolute 3.9 10 3/mcL Normal 2.3-8.1 [facility] Comment on above: Performed By: #### G FR, CBC, ADIFF, ANEU, BMP #### [address] [address] BMPon 06-17-2024 BUN/Creatinine Ratio 25.0 ratio High 10.0-22.0 [facility] Comment on above: Performed By: #### G FR, CBC, ADIFF, ANEU, BMP #### [address] [address] Calcium [Mass/Vol] 9.6 mg/dL Normal 8.7-10.4 [facility] Comment on above: Performed By: #### G FR, CBC, ADIFF, ANEU, BMP #### [address] [address] Chloride [Moles/Vol] 106 mmol/L Normal 98-110 [facility] Comment on above: Performed By: #### G FR, CBC, ADIFF, ANEU, BMP #### [address] [address] CO2 [Moles/Vol] 25 mmol/L Normal 22-[address] [facility] Comment on above: Performed By: #### G FR, CBC, ADIFF, ANEU, BMP #### [place] [id number] Creatinine [Mass/Vol] 2.32 mg/dL High 0.50-1.20 [facility] Comment on above: Result Comment: Test ing performed on [employer] analyzer using enzymatic creatinine methodology. Performed By: #### G FR, CBC, ADIFF, ANEU, BMP #### [place] [address] Electrolyte Balance 10.0 mEq/L Normal 4.0-15.0 [facility] Comment on above: Performed By: #### G FR, CBC, ADIFF, ANEU, BMP #### [place] [address] Glucose [Mass/Vol] 92 mg/dL Normal 82-115 [facility] Comment on above: Performed By: #### G FR, CBC, ADIFF, ANEU, BMP #### [place] [id number] Potassium [Moles/Vol] 5.0 mmol/L Normal 3.5-5.0 [facility] Comment on above: Performed By: #### G FR, CBC, ADIFF, ANEU, BMP #### [place] [id number] Sodium [Moles/Vol] 141 mmol/L Normal 136-145 [facility] Comment on above: Performed By: #### G FR, CBC, ADIFF, ANEU, BMP #### [facility] [address] [place], [place] [address] Urea nitrogen [Mass/Vol] 58.0 mg/dL High 8.0-22.[address] [facility] Comment on above: Performed By: #### G FR, CBC, ADIFF, ANEU, BMP #### [place] [address] CBCon 06-17-2024 Erythrocyte distribution width (RBC) [Ratio] 14.3 % Normal 11.5-15.[address] [facility] Comment on above: Performed By: #### G FR, CBC, ADIFF, ANEU, BMP #### [place] [address] Hematocrit (Bld) [Volume fraction] 34.9 % Normal 34.0-46.[address] [facility] Comment on above: Performed By: #### G FR, CBC, ADIFF, ANEU, BMP #### [place] [address] Hgb 11.6 G/dL Low 12.0-16.[address] [facility] Comment on above: Performed By: #### G FR, CBC, ADIFF, ANEU, BMP #### [place] [address] MCH (RBC) [Entitic mass] 33.7 pg High 27.0-33.[address] [facility] Comment on above: Performed By: #### G FR, CBC, ADIFF, ANEU, BMP #### [place] [address] MCHC 33.2 G/dL Normal 32.0-36.[address] [facility] Comment on above: Performed By: #### G FR, CBC, ADIFF, ANEU, BMP #### [place] [address] MCV (RBC) [Entitic vol] 101.4 fL High 80.0-99.0 [facility] Comment on above: Performed By: #### G FR, CBC, ADIFF, ANEU, BMP #### [place] [address] Platelet 273 10 3/mcL Normal 150-[address] [facility] Comment on above: Performed By: #### G FR, CBC, ADIFF, ANEU, BMP #### [facility] [address] [place] [address] Platelet mean volume (Bld) [Entitic vol] 7.4 fL Normal 6.6-10.[address] [facility] Comment on above: Performed By: #### G FR, CBC, ADIFF, ANEU, BMP #### [facility] [address] [place] [address] RBC 3.44 10 6/mcL Low 4.10-5.[address] [facility] Comment on above: Performed By: #### G FR, CBC, ADIFF, ANEU, BMP #### [facility] [address] [place] [address] WBC 6.2 10 3/mcL Normal 4.5-10.[address] [facility] Comment on above: Performed By: #### G FR, CBC, ADIFF, ANEU, BMP #### [place] [id number] LABORATORYOrdered By: SYSTEM SYSTEM on 06-17-2024 Basophils (Bld) [#/Vol] 0.1 103/mcL Normal 0.0 - 0.3 10^3/mcL [facility] Workflow SS Basophils/100 WBC (Bld) 1.4 % Normal 0.0 - 2.5 % [facility] Workflow [facility] Calcium [Mass/Vol] 9.6 mg/dL Normal 8.7 - 10. 4 mg/dL ADM SS Chloride [Moles/Vol] 106 mmol/L Normal 98 - 11 0 mEq/L AH ADM SS CO2 [Moles/Vol] 25 mmol/L Normal 22 - 32 mEq/L ADM SS Creatinine [Mass/Vol] 2.32 mg/dL High 0.50 - 1.20 mg/dL AH ADM SS Comment on above: Interpretive Data: T esting performed on [employer] analyzer using enzymatic creatinine methodology. Electrolyte Balance 10.0 mEq/L Normal 4.0 - 15 .0 mEq/L AH ADM SS Eosinophils (Bld) [#/Vol] 0.4 103/mcL Normal 0.0 - 0.7 10^3/mcL [facility] Workflow [facility] Eosinophils/100 WBC (Bld) 6.5 % High 0.0 - 6.0 % AH Workflow SS Erythrocyte distribution width (RBC) [Ratio] 14.3 % Normal 11.5 - 15.5 % AH Workflow SS Estimated Glomerular Filtration Rate 20 ml/min/1.73sqm Invalid Interpretation Code Chemistry S Comment on above: Interpretive Data: Stages of Chronic Kidney Disease (CKD) Stage Description eGFR(ml/min/1.73 sq.m.) CKD 1 Normal kidney function or >=90 normal kindney function with possible kidney damage (ex. Proteinuria) CKD 2 Kidney damage with mild loss 60-89 of kidney function CKD 3a Mild to moderate loss of kidney 45-59 function CKD 3b Moderate to severe loss of 30-44 of kindey function CKD 4 Severe loss of kidney function 15-29 CKD 5 Kidney failure <15 Note: (go live 2024) the eGFR calculation was updated to the 2020 CKD-EPI creatinine equation without a race factor to calculate the eGFR results. Glucose [Mass/Vol] 92 mg/dL Normal 82 - 115 mg/dL ADM SS Hematocrit (Bld) [Volume fraction] 34.9 % Normal 34.0 - 46.0 % AH Workflow SS Hemoglobin (Bld) [Mass/Vol] 11.6 G/dL Low 12.0 - 16.0 G/dL AH Workflow SS Lymphocytes (Bld) [#/Vol] 0.7 103/mcL Low 0.9 - 4.3 10^3/mcL [facility] Workflow SS Lymphocytes/100 WBC (Bld) 11.8 % Low 20.0 - 40.0 % AH Workflow SS MCH (RBC) [Entitic mass] 33.7 pg High 27. 0 - 33.0 pg AH Workflow SS MCHC 33.2 G/dL Normal 32.0 - 36.0 G/dL AH Workflow SS MCV (RBC) [Entitic vol] 101.4 fL High 80.0 - 99.0 fL AH Workflow SS Monocytes (Bld) [#/Vol] 1.1 103/mcL Normal 0.1 - 1.4 10^3/mcL AH Workflow SS Monocytes/100 WBC (Bld) 18.0 % High 2.0 - 13.0 % AH Workflow SS Neutrophils (Bld) [#/Vol] 3.9 103/mcL Normal 2.3 - 8.1 10^3/mcL AH Workflow SS Neutrophils/100 WBC (Bld) 62.3 % Normal 50.0 - 75.0 % AH Workflow SS Platelet mean volume (Bld) [Entitic vol] 7.4 fL Normal 6.6 - 10.5 fL Workflow SS Platelets (Bld) [#/Vol] 273 103/mcL Normal 150 - 450 10^3/mcL AH Workflow SS Potassium [Moles/Vol] 5.0 mmol/L Normal 3.5 - 5.0 mEq/L ADM SS RBC (Bld) [#/Vol] 3.44 106/mcL Low 4.10 - 5.3 0 10^6/mcL Workflow SS Sodium [Moles/Vol] 141 mmol/L Normal 136 - 145 mEq/L ADM SS Urea nitrogen [Mass/Vol] 58.0 mg/dL High 8.0 - 22.0 mg/dL ADM SS Urea nitrogen/Creatinine [Mass ratio] 25.0 ratio High 10.0 - 22.0 ratio ADM SS WBC (Bld) [#/Vol] 6.2 103/mcL Normal 4.5 - 10.8 10^3/mcL Workflow SS International normalized rat io (INR) calculationOrdered By: Alfa Bush on 06-07-2024 INR Coag (Bld) [Relative time] 3.4 {INR} [facility] Prothrombin Time w/INRon INR Coag (PPP) [Relative time] 3.4 {INR} Normal [facility] Comment on above: Performed By: #### L 300.3900 #### [facility] [address] [place], [address] PT Coag (PPP) [Time] 35.4 s High 11.7-14.9 [facility] Comment on above: Performed By: #### L 300.3900 #### [facility] [address] [place], [place], [address] Prothrombin timeOrdered By: Alfa Bush on 06-07-2024 PT Coag (PPP) [Time] 35.4 s High 11.7-14.9 [facility] Prothrombin Time w/INRon INR Coag (PPP) [Relative time] 3.3 {INR} Normal [facility] Comment on above: Performed By: #### L 300.3900 #### [facility] [address] [place], [address] PT Coag (PPP) [Time] 34.1 s High 11.7-14.9 [facility] Comment on above: Performed By: #### L 300.3900 #### [facility] [address] [place], [place], [address] Echo, Limited Studyon 2024 Echo, Limited Study [facility] [address] [place] [address] Echo, Limited Study 05/16/24 1358 MR#: [id number] Acct: [id number] Name: DONNA NARANJO I Rep #: [id number] : 1940 83 From: Alex Sol MD Attending Dr: Alfa Bush GLAZE HANDLER-C Status: REG CLI Ordering Dr: Alfa Bush GLAZE HANDLER GLAZE HANDLER-C Date: 05/16/24 Location: [facility] Sex: F C Admitted: Reason For Study Reason For Study: CHF Procedure This was a limited 2D transthoracic echocardiogram. Exam performed in department. Left Ventricle Normal LV size. Mild concentric left ventricular hypertrophy. The left ventricular ejection fraction is 40 %. There is mild to moderate global hypokinesis of the left ventricle. Right Ventricle Normal RV size. Normal systolic function. Atria The left atrium is moderately enlarged. Normal right atrium. Mitral Valve Stable appearing mechanical mitral valve apparatus. Aortic Valve Bioprosthetic aortic valve. Pulmonic Valve Normal pulmonic valve. Pericardium/Pleural No pericardial effusion. MMode/2D Measurements Calculations LVIDd: 5.4 cm IVSd: 1.2 cm LVOT diam: 2.0 cm LVIDs: 4.0 cm LVPWd: 1.4 cm LVOT area: 3.0 cm2 FS: 25.9 % __ LAV(MOD-bp): 81.8 ml SV(MOD-sp4): 57.9 ml LVAd ap4: 35.4 cm2 LAV(MOD-bp) Indexed: 51.4 ml/m2 LVLd ap4: 8.1 cm SI(MOD-sp4): 36.4 ml/m2 LAV(MOD-sp2): 76.8 ml EDV(MOD-sp4): 130.0 ml LAV(MOD-sp4): 81.4 ml EDV(sp4-el): 131.0 ml LVAs ap4: 24.2 cm2 LVLs ap4: 7.1 cm ESV(MOD-sp4): 72.1 ml ESV(sp4-el): 70.8 ml EF(MOD-sp4): 44.5 % EF(sp4-el): 46.0 % __ SV(sp4-el): 60.2 ml LA A4 area: 25.4 cm2 RA A4 area: 17.0 cm2 ECHO/Echo, Limited Study Interpretation Summary Normal LV size. Mild concentric left ventricular hypertrophy. The left ventricular ejection fraction is 40 %. There is mild to moderate global hypokinesis of the left ventricle. Stable appearing mechanical mitral valve apparatus. Bioprosthetic aortic valve. __ Ordering Physician: Alfa Bush Referring Physician: Alfa Bush Performed By: Kathi Napier RCS 05/16/24 1546 Date Alex Sol MD CC: AB Bush; Dr. Mireille Garnica MD Date Dictated: 05/16/24 1358 Date Transcribed: 05/16/24 1546 Lead Qa Analyst: Signed Normal [facility] International normalized rat io (INR) calculationOrdered By: Alfa Bush on 05-16-2024 INR Coag (Bld) [Relative time] 4.1 {INR} High [facility] Limited echocardiogram repor tOrdered By: Alex Sol on 05-16-2024 Study report [facility] [address] [place] [address] Echo, Limited Study 05/16/24 1358 MR#: [id number] Acct: [id number] Name: DONNA NARANJO I Rep #:[id number] : 1940 83 From: Alex House Attending Dr: AB Salazar Sta tus: REG CLI Ordering Dr: Alfa Bush NP Date: 05/16/24 Location: [facility] Sex: F C Admitted: Reason For Study Reason For Study: CHF Procedure This was a limited 2D transthoracic echocardiogram. Exam performed in department. Left Ventricle Normal LV size. Mild concentric left ventricular hypertrophy. The left ventricular ejection fraction is 40 %. There is mild to moderate global hypokinesis of the left ventricle. Right Ventricle Normal RV size. Normal systolic function. Atria The left atrium is moderately enlarged. Normal right atrium. Mitral Valve Stable appearing mechanical mitral valve apparatus. Aortic Valve Bioprosthetic aortic valve. Pulmonic Valve Normal pulmonic valve. Pericardium/Pleural No pericardial effusion. MMode/2D Measurements & Calculations LVIDd: 5.4 cm IVSd: 1.2 cm LVOT diam: 2.0 cm LVIDs: 4.0 cm LVPWd: 1.4 cm LVOT area: 3.0 cm2 FS: 25.9 % ____ LAV(MOD-bp): 81.8 ml SV(MOD-sp4): 57.9 ml LVAd ap4: 35.4 cm2 LAV(MOD-bp) Indexed: 51.4 ml/m2 LVLd ap4: 8.1 cm SI(MOD-sp4): 36.4 ml/m2 LAV(MOD-sp2): 76.8 ml EDV(MOD-sp4): 130.0 ml LAV(MOD-sp4): 81.4 ml EDV(sp4-el): 131.0 ml LVAs ap4: 24.2 cm2 LVLs ap4: 7.1 cm ESV(MOD-sp4): 72.1 ml ESV(sp4-el): 70.8 ml EF(MOD-sp4): 44.5 % EF(sp4-el): 46.0 % ____ SV(sp4-el): 60.2 ml LA A4 area: 25.4 cm2 RA A4 area: 17.0 cm2 ECHO/Echo, Limited Study Interpretation Summary Normal LV size. Mild concentric left ventricular hypertrophy. The left ventricular ejection fraction is 40 %. There is mild to moderate global hypokinesis of the left ventricle. Stable appearing mechanical mitral valve apparatus. Bioprosthetic aortic valve. __ Ordering Physician: Alfa Bush Referring Physician: Alfa Bush Performed By: Kathi Napier RCS 05/16/24 1546 Date _ Alex Sol MD CC: GLAZE HANDLER-C Alfa Bush; Dr. Mireille Garnica MD ~ Date Dictated: 05/16/24 1358 Date Transcribed: 05/16/241545 Lead Qa Analyst: Signed [facility] Work Phone: Prothrombin Time w/INRon INR Coag (PPP) [Relative time] 4.1 {INR} Invalid Interpretation Code [facility] Comment on above: Order Comment: CRITI PAUL VALUE CALLED TO SHANIA AIMEE05/16/24 1351 Aislinn Cardenas.RESULTS READ BACK BY SAME. Performed By: #### L 300.3900 #### [facility] [address] [place], [address] PT Coag (PPP) [Time] 40.6 s High 11.7-14.9 [facility] Comment on above: Order Comment: CRITI PAUL VALUE CALLED TO SHANIA YU05/16/24 [facility] Aislinn Cardenas.RESULTS READ BACK BY SAME. Performed By: #### L 300.3900 #### [facility] [address] [place], [address] Prothrombin timeOrdered By: Alfa Bush on 05-16-2024 PT Coag (PPP) [Time] 40.6 s High 11.7-14.9 [facility] International normalized rat io (INR) calculationOrdered By: Alfa Bush on 04-15-2024 INR Coag (Bld) [Relative time] 3.2 {INR} [facility] Prothrombin Time w/INRon INR Coag (PPP) [Relative time] 3.2 {INR} Normal [facility] Comment on above: Performed By: #### L 300.3900 #### [facility] [address] [place], [place], [address] (690) PT Coag (PPP) [Time] 33.2 s High 11.7-14.9 [facility] Comment on above: Performed By: #### L 300.3900 #### [facility] [address] [place], [address] Prothrombin timeOrdered By: Alfa Bush on 04-15-2024 PT Coag (PPP) [Time] 33.2 s High 11.7-14.9 [facility] 12 Lead EKG performed [place] [facility] [place] 04-11-2024 12 Lead EKG performed by [facility] [address] [place] [address] 12 Lead EKG performed by [facility] 04/11/24 1051 MR#: [id number] Acct: [id number] Name: DONNA NARANJO I Rep #: [id number] : 1940 83 From: Alfa Bush GLAZE HANDLER GLAZE HANDLER-C Attending Dr: Alfa Bush, GLAZE HANDLER-C Status: DEP AMB Ordering Dr: Alfa Bush NP GLAZE HANDLER-C Date: 04/11/24 [place] [facility] [place] Sex: F C Admitted: [facility]12 Lead EKG performed by [facility] ECG Report Interpretation -------Atrial Rhythm -First degree A-V block P:QRS - 1:1, Abnormal P axis, H Rate 83 Mona = 238-Intraventricula r conduction defect and left axis -possible anterior fascicular block consider ventricular hypertrophy. -Anteroseptal infarct -age undetermined. ABNORMAL Electronically signed on 04/12/2024 at 12:02 by Alex Solwood Software Version [id number] 04/12/24 1203 Date Alfa BERGER CC: Dr. Mireille Garnica MD Date Dictated: 04/11/241050 Date Transcribed: 04/11/241050 Lead Qa Analyst: BRENT Signed Normal [facility] Cardiology Visit Reporton Cardiology Visit Report [facility] [address] [place] [address] OFFICE VISIT Date of Service: 04/11/24 MR#: [id number] Acct: [id number] Name: DONNA NARANJO I Rep #: [id number] : 1940 Provider: AB manrique Age/Sex: 83/F Location[place] [facility] Status: Signed HPI HPI History of Present Illness Details: This lady has past medical history significant for rheumatic heart disease status post mitral and aortic valve replacements with prosthetic valves. She has history of paroxysmal atrial fibrillation/flutte r. She has had multiple cardioversions done in the past. She denies chest, arm, jaw, or chest discomfort. She acknowledges palpitations that she describes as fast. She acknowledges bilateral lower extremity edema that is improving with Lasix. She denies claudication. She continues with shortness of breath with activity. She does not feel this to be worsening. She denies shortness of breath at rest or Ortho pi???a. She acknowledges nausea. She denies lightheadedness, dizziness, near-syncope, or syncope. She continues with fatigue. Intake Vital Signs 02/09/24 10:41 04/11/24 10:06 Height 5 ft 3 in 5 ft 3 in Weight: 141 lb BMI 25.0 BP 98/60 Blood Pressure Location Lt brachial Position Sitting Respiration 16 Pulse 84 Pulse Source NIBP Intake Visit Reasons: 2 M FU Intelligence Research Specialist Required: No Accompanied by: Is patient in pain?: No Allergies latex Allergy (Verified 04/11/24 10:11) Itching Penicillins Allergy (Verified 04/11/24 10:11) Rash Medications ???Medication ???Instructions ???Recorded ???Confirmed ???Type aspirin 81 mg chewable tablet 81 mg PO DAILY@0800 08/12/1404/11 History ascorbic acid (vitamin C) 1,000 mg 1 g PO DAILY 07/26/18 04/11/24 H istory tablet BP Machine and Cuff #1 ea 02/24/21 01/12/24 Rx acetaminophen 650 mg 1,300 mg PO Q12H 01/03/22 04/11/24 History tablet,extended release cholecalciferol (vitamin D3) 125 125 mcg PO DAILY 01/03/22 04/11/24 History mcg (5,000 unit) tablet simvastatin 20 mg tablet 20 mg PO QPM #90 tabs 05/02/23 Rx warfarin 1 mg tablet 1 mg PO .COMPLEX #180 tabs 4 04/11/24 Rx metoprolol tartrate 100 mg tablet 100 mg PO BID #180 tabs 01/22/24 04/11/24 Rx amiodarone 200 mg tablet 200 mg PO QDAY #30 tabs 01/26/24 0 04/11/24 Rx enoxaparin 60 mg/0.6 mL 60 mg (0.6 mL) subcut .COMPLEX PRN 02/22/24 04/11/24 Rx subcutaneous syringe Bridging #6 mL furosemide 40 mg tablet 40 mg PO .COMPLEX #90 tabs 5 04/11/24 Rx losartan 25 mg tablet 25 mg PO DAILY #90 tabs 03/29/24 0 04/11/24 Rx Ejection fraction %: 15 (15-20) Have you fallen in the past year?: Yes (Tripped and fell) PFSH Medical History Fatigue Bradycardia Sacroiliitis Dyspnea on exertion Low back pain Lightheadedness Osteopenia after menopause Right knee DJD Chondrocalcinosis of knee Lumbar degenerative disc disease 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 Greater trochanteric bursitis Elevated TSH History of skin cancer Hx of osteopenia Hx of gallstones Hx of cataract Hx: UTI (urinary tract infection) History of back problems senior care current use of amiodarone RUIZ (dyspnea on exertion) Lichen sclerosus Cystocele with uterine descensus Shingles Hypersomnia, unspecified Migraines Psoriasis 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 Hyperlipidemia Atrial flutter, paroxysmal 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) 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 Surgical History History of mitral valve replacement with mechanical valve ( 07/12/00) History of mechanical aortic valve replacement ( 01/20/15) History of surgery on arm History of right and left heart catheterization (12/26/14) History of thoracentesis (02/01/15) Hx of cholecystectomy Right Tibial ORIF History of cardioversion (12/28/18) H/O mitral valve replacement (07/12/00) H/O aortic valve replacement (01/20/15) Family History Other Adopted Social History household members: significant other housing: house current occupational status: retired current occupation: worked at [employer] sexually active: Yes Smoking Status: Never smoker Electronic Cigarette Use: not used alcohol intake: never substance use type: does not use caffeine: Yes what type of physical activity do you participate in: none seatbelt use: sometimes do you feel safe at home: Yes additional social history: - Joey Patient and retired ROS Const Const: Positive for fatigue and weakness Eyes Eyes: Negative (more content not included)... Normal [facility] Prothrombin Time w/INRon INR Coag (PPP) [Relative time] 2.7 {INR} Normal [facility] Comment on above: Performed By: #### L 300.3900 #### [facility] [address] [place], [address] PT Coag (PPP) [Time] 28.9 s High 11.7-14.9 [facility] Comment on above: Performed By: #### L 300.3900 #### [facility] [address] [place], [address] Prothrombin Time w/INRon INR Coag (PPP) [Relative time] 2.0 {INR} Normal [facility] Comment on above: Performed By: #### L 300.3900 #### [facility] [address] [place], [address] PT Coag (PPP) [Time] 23.2 s High 11.7-14.9 [facility] Comment on above: Performed By: #### L 300.3900 #### [facility] [address] [place], [address] International normalized rat io (INR) calculationOrdered By: Alfa Bush on 03-14-2024 INR Coag (Bld) [Relative time] 3.1 {INR} [facility] Prothrombin Time w/INRon INR Coag (PPP) [Relative time] 3.1 {INR} Normal [facility] Comment on above: Performed By: #### L 300.3900 #### [facility] [address] [place], [address] PT Coag (PPP) [Time] 32.6 s High 11.7-14.9 [facility] Comment on above: Performed By: #### L 300.3900 #### [facility] [address] [place], [address] Prothrombin timeOrdered By: Alfa Bush on 03-14-2024 PT Coag (PPP) [Time] 32.6 s High 11.7-14.9 [facility] Prothrombin Time w/INRon INR Coag (PPP) [Relative time] 4.4 {INR} Invalid Interpretation Code [facility] Comment on above: Result Comment: CRIT ICAL VALUE CALLED TO Monroe YU 03/08/24 1357 Carla Reis. RESULTS READ BACK BY . Performed By: #### L 300.3900 #### [facility] [address] [place], [address] PT Coag (PPP) [Time] 42.8 s High 11.7-14.9 [facility] Comment on above: Performed By: #### L 300.3900 #### [facility] [address] [place], [address] Prothrombin Time w/INRon INR Coag (PPP) [Relative time] 4.9 {INR} Invalid Interpretation Code [facility] Comment on above: Result Comment: CRIT ICAL VALUE CALLED TO Jessica CHAPPELL RN 03/04/24 1313 Carla Reis. RESULTS READ BACK BY . Performed By: #### L 300.3900 #### [facility] [address] [place], [address] PT Coag (PPP) [Time] 47.1 s High 11.7-14.9 [facility] Comment on above: Performed By: #### L 300.3900 #### [facility] [address] [place], [address] Prothrombin Time w/INRon INR Coag (PPP) [Relative time] 2.2 {INR} Normal [facility] Comment on above: Performed By: #### L 300.3900 #### [facility] [address] [place], [address] PT Coag (PPP) [Time] 24.9 s High 11.7-14.9 [facility] Comment on above: Performed By: #### L 300.3900 #### [facility] [address] [place], [address] Prothrombin Time w/INRon INR Coag (PPP) [Relative time] 1.7 {INR} Normal [facility] Comment on above: Performed By: #### L 300.3900 #### [facility] [address] [place], [address] PT Coag (PPP) [Time] 20.1 s High 11.7-14.9 [facility] Comment on above: Performed By: #### L 300.3900 #### [facility] [address] [place], [address] Prothrombin Time w/INRon INR Coag (PPP) [Relative time] 1.8 {INR} Normal [facility] Comment on above: Performed By: #### L 300.3900 #### [facility] [address] [place], [address] PT Coag (PPP) [Time] 21.0 s High 11.7-14.9 [facility] Comment on above: Performed By: #### L 300.3900 #### [facility] [address] [place], [address] International normalized rat io (INR) calculationOrdered By: Alfa Bush on 02-19-2024 INR Coag (Bld) [Relative time] 4.7 {INR} High [facility] Prothrombin Time w/INRon INR Coag (PPP) [Relative time] 4.7 {INR} Invalid Interpretation Code [facility] Comment on above: Performed By: #### L 300.3900 #### [facility] [address] [place], [address] PT Coag (PPP) [Time] 45.4 s High 11.7-14.9 [facility] Comment on above: Performed By: #### L 300.3900 #### [facility] [address] [place], [address] Prothrombin timeOrdered By: Alfa Bush on 02-19-2024 PT Coag (PPP) [Time] 45.4 s High 11.7-14.9 [facility] Prothrombin Time w/INRon INR Coag (PPP) [Relative time] 4.4 {INR} Invalid Interpretation Code [facility] Comment on above: Order Comment: Comme nts: STANDING ORDER: Fax to [phone] VALUE CALLED TO VIDAL JONES02/15/24 Guero Cardenas.RESULTS READ BACK BY SAME. Performed By: #### L 300.3900 #### [facility] [address] [place], [address] PT Coag (PPP) [Time] 41.5 s High 11.7-14.9 [facility] Comment on above: Order Comment: Comme nts: STANDING ORDER: Fax to [phone] VALUE CALLED TO VIDAL JONES02/15/24 1332 Aislinn Cardenas.RESULTS READ BACK BY SAME. Performed By: #### L 300.3900 #### [facility] [address] [place], [address] Absolute neutrophil countOrd ered By: Avtar Ervin on 02-10-2024 Neutrophils (Bld) [#/Vol] 7.7 10*3/uL 2.0-7.7 [facility] Basic Metabolic Profile (BMP )on 02-10-2024 BUN/CRE 22.6 RATIO High 10-20 [facility] Comment on above: Performed By: #### L 100.0100, L500.2500 #### [facility] [address] [place], [address] CA,Total 9.5 mg/dL Normal 8.5-10.1 [facility] Comment on above: Performed By: #### L 100.0100, L500.2500 #### [facility] [address] [place], [address] Chloride [Moles/Vol] 110 mmol/L High 98-107 [facility] Comment on above: Performed By: #### L 100.0100, L500.2500 #### [facility] [address] [place], [address] CO2 [Moles/Vol] 23.0 mmol/L Normal 21.0-32.0 [facility] Comment on above: Performed By: #### L 100.0100, L500.2500 #### [facility] [address] [place], [address] Creatinine [Mass/Vol] 2.08 mg/dL High 0.55-1.02 [facility] Comment on above: Result Comment: The validity of the calculated GFR GFRAA in patients over 70 years has not been determined. Clinical correlation is essential. Performed By: #### L 100.0100, L500.2500 #### [facility] [address] [place], [address] ECRCL 19.00 ml/min Normal [facility] Comment on above: Performed By: #### L 100.0100, L500.2500 #### [facility] [address] [place], [address] EST GFR - AA 29 mL/min Low >60 [facility] Comment on above: Result Comment: Afri can S[place] GFR Calc Performed By: #### L 100.0100, L500.2500 #### [facility] [address] [place], [address] GAP 7 Normal 5-15 [facility] Comment on above: Performed By: #### L 100.0100, L500.2500 #### [facility] [address] [place], [address] GFR/1.73 sq M.predicted among non-blacks MDRD (S/P/Bld) [Vol rate/Area] 24 mL/min/{1.73_m2} Low >60 [facility] Comment on above: Result Comment: Non- GFR Calc Performed By: #### L 100.0100, L500.2500 #### [facility] [address] [place], [address] Glucose [Mass/Vol] 106 mg/dL Normal 74-106 [facility] Comment on above: Result Comment: Fast ing Glucose result from 100 to 125 mg/dL suggests IMPAIRED HOMEOSTASIS per A.D.A. criteria. Performed By: #### L 100.0100, L500.2500 #### [facility] [address] [place], [address] Potassium [Moles/Vol] 3.8 mmol/L Normal 3.5-5.1 [facility] Comment on above: Performed By: #### L 100.0100, L500.2500 #### [facility] [address] [place], [address] Sodium [Moles/Vol] 141 mmol/L Normal 136-145 [facility] Comment on above: Performed By: #### L 100.0100, L500.2500 #### [facility] [address] [place], [address] Urea nitrogen [Mass/Vol] 47 mg/dL High 09-06 [facility] Comment on above: Performed By: #### L 100.0100, L500.2500 #### [facility] [address] [place], [address] Basophil percentageOrdered B y: Avtar Ervin on 02-10-2024 Basophils/100 WBC (Bld) 0.4 % 0-1 [facility] Blood urea nitrogen (BUN)/cr eatinine ratioOrdered By: Avtar Ervin on 02-10-2024 Urea nitrogen/Creatinine [Mass ratio] 22.6 mg/mg High - [facility] CBC W/Diff, Automatedon 01-21 Absolute Lymph 0.69 X10 3/uL Low 0.83-4.51 [facility] Comment on above: Performed By: #### L 100.0100, L500.2500 #### [facility] [address] [place], [address] Absolute Neut 7.7 X10 3/uL Normal 2.0-7.7 [facility] Comment on above: Performed By: #### L 100.0100, L500.2500 #### [facility] [address] [place], [address] Basophils/100 WBC (Bld) 0.4 % Normal 0-1 [facility] Comment on above: Performed By: #### L 100.0100, L500.2500 #### [facility] [address] [place], [address] Eosinophils/100 WBC (Bld) 2.6 % Normal 0-5 [facility] Comment on above: Performed By: #### L 100.0100, L500.2500 #### [facility] [address] [place], [address] Erythrocyte distribution width (RBC) [Ratio] 14.6 % Normal 11.6-14.6 [facility] Comment on above: Performed By: #### L 100.0100, L500.2500 #### [facility] [address] [place], [address] Hematocrit (Bld) [Volume fraction] 33.5 % Low 37-47 [facility] Comment on above: Performed By: #### L 100.0100, L500.2500 #### [facility] [address] [place], [address] Hemoglobin (Bld) [Mass/Vol] 11.0 g/dL Low 12.0-15.0 [facility] Comment on above: Performed By: #### L 100.0100, L500.2500 #### [facility] [address] [place], [address] IG% 0.600 Normal 0.0-0.9 [facility] Comment on above: Result Comment: IG% - Immature Granulocytes (promyelocytes, myelocytes and metamyelocytes) > 1% indicates that a LEFT SHIFT is Present. Performed By: #### L 100.0100, L500.2500 #### [facility] [address] [place], [address] Lymphocytes/100 WBC (Bld) 6.9 % Low 19-41 [facility] Comment on above: Performed By: #### L 100.0100, L500.2500 #### [facility] [address] [place], [address] MCH (RBC) [Entitic mass] 34.1 pg High 27.0-32.0 [facility] Comment on above: Performed By: #### L 100.0100, L500.2500 #### [facility] [address] [place], [address] MCHC (RBC) [Mass/Vol] 32.8 g/dL Normal 32-36 [facility] Comment on above: Performed By: #### L 100.0100, L500.2500 #### [facility] [address] [place], [address] MCV (RBC) [Entitic vol] 103.7 fL High 81-99 [facility] Comment on above: Performed By: #### L 100.0100, L500.2500 #### [facility] [address] [place], [address] Monocytes/100 WBC (Bld) 12.2 % High 0-10 [facility] Comment on above: Performed By: #### L 100.0100, L500.2500 #### [facility] [address] [place], [address] Neutrophils/100 WBC (Bld) 77.3 % High 47-70 [facility] Comment on above: Performed By: #### L 100.0100, L500.2500 #### [facility] [address] [place], [address] Nucleated RBC (Bld) [#/Vol] 0 10*3/uL Normal 0-5 [facility] Comment on above: Performed By: #### L 100.0100, L500.2500 #### [facility] [address] [place], [address] Platelet mean volume (Bld) [Entitic vol] 9.7 fL Normal 6.2-12.0 [facility] Comment on above: Performed By: #### L 100.0100, L500.2500 #### [facility] [address] [place], [address] Platelets (Bld) [#/Vol] 228 10*3/uL Normal 150-450 [facility] Comment on above: Performed By: #### L 100.0100, L500.2500 #### [facility] [address] [place], [address] RBC (Bld) [#/Vol] 3.23 10*6/uL Low 4.2-5.4 [facility] Comment on above: Performed By: #### L 100.0100, L500.2500 #### [facility] [address] [place], [address] RDW SD 56.1 fl High 35.1-43.9 [facility] Comment on above: Performed By: #### L 100.0100, L500.2500 #### [facility] [address] [place], [address] WBC (Bld) [#/Vol] 10.0 10*3/uL Normal 4.4-11.0 [facility] Comment on above: Performed By: #### L 100.0100, L500.2500 #### [facility] [address], [address] Carbon dioxide measurementOr dered By: Avtar Schroeder 02-10-2024 CO2 [Moles/Vol] 23.0 mmol/L 21.0-32.0 [facility] Chest PA and Lateralon 02-09 Chest PA and Lateral [facility] Imaging Services [address] [place] [address] Chest PA and Lateral MR#: [id number] Acct: [id number] Name: DONNA NARANJO I Rep #: [id number] : 1940 F 83 From: [facility] PCP: Dr. Mireille Garnica MD Status: PRE ER Study: Chest PA and Lateral Date of Exam: 02/10/24 Exam# [id number] Ordering Dr: Avtar Ervin DO -[id number] INDICATION: cough EXAMINATION/TECHNIQ UE: X-RAY - XR Chest 2 Views COMPARISON: Prior study dated: 12/21/2020 FINDINGS: LINES/DEVICES: None. LUNGS: No consolidation. No pneumothorax. MEDIASTINUM: Aorta is atherosclerotic. CARDIAC SILHOUETTE: Enlarged. Stable size. Sternal wires. Valve prosthesis. BONES AND SOFT TISSUES: No acute abnormalities. RAD/Chest PA and Lateral IMPRESSION: No evidence of active intrathoracic disease. Electronically Signed: Estefani Mayes MD at 2:09 EST , CC: Dr. Mireille Garnica MD; Dr. Avtar Ervin DO Lead Qa Analyst: Signed Normal [facility] Chloride measurementOrdered By: Avtar Ervin on 02-10-2024 Chloride [Moles/Vol] 110 mmol/L High 98-107 [facility] Emergency Department Summary on 02-10-2024 Emergency Department Summary [facility] Medical Records Department [address] [place] [address] Emergency Department Summary 02/10/24 MR#: [id number] Acct: [id number] Name: DONNA NARANJO I Rep #: [id number] : 1940 83 From: Avtar Bustamante PCP: Dr. Mireille Garnica MD Status:DEP ER Location: ED HPI History of Present Illness Chief Complaint: Cold Sx Informant: patient, spouse/S.O. and family Narrative Narrative: Here with spouse 2 children for evaluation. Nonproductive cough for the past week. Subjective fevers and chills. Increasing dyspnea. No wheeze. No asthma or COPD history. No tobacco history. She is on warfarin history of paroxysmal A-fib and mechanical valve. INR checked today was 3.7. Sick contacts with spouse. She had 1 posttussive emesis today. No hematemesis. No diarrhea. No urinary symptoms. Prior similar symptoms: Yes PFSH PFSH Medical History Fatigue Bradycardia Sacroiliitis Dyspnea on exertion Low back pain Lightheadedness Osteopenia after menopause Right knee DJD Chondrocalcinosis of knee Lumbar degenerative disc disease 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 Greater trochanteric bursitis Elevated TSH History of skin cancer Hx of osteopenia Hx of gallstones Hx of cataract Hx: UTI (urinary tract infection) History of back problems senior care current use of amiodarone RUIZ (dyspnea on exertion) Lichen sclerosus Cystocele with uterine descensus Shingles Hypersomnia, unspecified Migraines Psoriasis 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 Hyperlipidemia Atrial flutter, paroxysmal 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) 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 Home Medications ???Medication ???Instructions ???Recorded ???Last Taken ???Type aspirin 81 mg chewable tablet 81 mg PO DAILY@0800 15 11/13/20 History ascorbic acid (vitamin C) 1,000 mg 1 g PO DAILY 07/26/18 Unknown History tablet BP Machine and Cuff #1 ea 02/24/21 Unknown Rx acetaminophen 650 mg 1,300 mg PO Q12H 01/03/22 Unknown History tablet,extended release cholecalciferol (vitamin D3) 125 125 mcg PO DAILY 01/03/22 Unknown History mcg (5,000 unit) tablet losartan 25 mg tablet 25 mg PO DAILY #90 tabs 05/02/23 Unknown Rx simvastatin 20 mg tablet 20 mg PO QPM #90 tabs 05/02/23 Unknown Rx enoxaparin 60 mg/0.6 mL 60 mg subcut Q12H PRN 12/28/23 Unknown History subcutaneous syringe warfarin 1 mg tablet 1 mg PO .COMPLEX #180 tabs 12/28/23 Unknown Rx furosemide 20 mg tablet (Lasix) 40 mg (2 x 20 mg) PO DAILY #90 tabs 12/29/23 Unknown Rx metoprolol tartrate 100 mg tablet 100 mg PO BID #180 tabs 01/22/24 Unknown Rx amiodarone 200 mg tablet 200 mg PO QDAY #30 tabs 01/26/24 Unknown Rx Allergy/AdvReac Type Severity Reaction Status Date / Time latex Allergy Itching Verified 02/10/24 01:12 Penicillins Allergy Rash Verified 02/10/24 01:12 Family History Other Adopted Surgical History History of mitral valve replacement with mechanical valve ( 07/12/00) History of mechanical aortic valve replacement ( 01/20/15) History of surgery on arm History of right and left heart catheterization (12/26/14) History of thoracentesis (02/01/15) Hx of cholecystectomy Right Tibial ORIF History of cardioversion (12/28/18) H/O mitral valve replacement (07/12/00) H/O aortic valve replacement (01/20/15) Social History household members: significant other housing: house current occupational status: retired current occupation: worked at [employer] sexually active: Yes Smoking Status: Never smoker Electronic Cigarette Use: not used alcohol intake: never substance use type: does not use caffeine: Yes what type of physical activity do you participate in: none seatbelt use: sometimes do you feel safe at home: Yes additional social history: - Joey Patient and retired ROS [facility] [employer] [employer] [facility] ED Constitutional Constitutional ED: Reports chills and fever(s); Denies sweats ENT ENT ED: Denies sore throat Cardiovascular Cardiovascular: Denies chest pain, leg edema, palpitations or racing heartbeat Respiratory/Chest Respiratory/Chest: Reports cough and dyspnea; Denies dyspnea on exertion Gastrointestinal Gastrointestinal: Reports vomiting; Denies abdominal pain, diarrhea or nausea Genitourinary Genitourinary ED: Denies dysuria, hematuria or urinary frequency Musculoskeletal Musculoskeletal: Denies back pain, extremity pain or neck pain Integumentary Denies rash or wounds Neurologic Neurologic: Denies headache(s), paresthesias or weakness EXAM Physical Exam Const Vital Signs: 02/10/24 (more content not included)... Normal [facility] Eosinophil percentageOrdered By: Avtar Ervin on 02-10-2024 Eosinophils/100 WBC (Bld) 2.6 % 0-5 [facility] Erythrocyte distribution wid th ratioOrdered By: Avtar Ervin on 02-10-2024 Erythrocyte distribution width (RBC) [Ratio] 14.6 % 11.6-14.6 [facility] Erythrocyte distribution wid th standard deviationOrdered By: Avtar Ervin on 02-10-2024 Erythrocyte distribution width (RBC) [Entitic vol] 56.1 fL High 35.1-43.9 [facility] Estimated glomerular filtrat ion rate (GFR) AmericanOrdered By: Avtar Ervin on 02-10-2024 Estimated GFR (MDRD) Amer 29 mL/min Low >60 [facility] Comment on above: GFR Calc Estimation of creatinine emmy aranceOrdered By: Avtar Ervin on 02-10-2024 Estimated Creatinine Clearance Calc 19.00 ml/min [facility] Glomerular filtration rate ( GFR) estimationOrdered By: Avtar Ervin on 02-10-2024 Estimated GFR (MDRD) Non-Af Amer 24 mL/min Low >60 [facility] Comment on above: Non- GFR Calc Glucose measurementOrdered B y: Avtar Ervin on 02-10-2024 Glucose [Mass/Vol] 106 mg/dL 74-106 [facility] Comment on above: Fasting Glucose resu lt from 100 to 125 mg/dL suggests IMPAIRED HOMEOSTASIS per A.D.A. criteria. Hematocrit Auto (Bld) [Volum e fraction]Ordered By: Avtar Ervin on 02-10-2024 Hematocrit (Bld) [Volume fraction] 33.5 % Low 37-47 [facility] Hemoglobin measurementOrdere d By: Avtar Ervin on 02-10-2024 Hemoglobin (Bld) [Mass/Vol] 11.0 g/dL Low 12.0-15.0 [facility] Immature granulocytes/100 WB C Auto (Bld)Ordered By: Avtar Ervin on 02-10-2024 Immature granulocytes/100 WBC (Bld) 0.600 % 0.0-0.9 [facility] Comment on above: IG% - Immature Granu locytes (promyelocytes, myelocytes and metamyelocytes) > 1% indicates that a LEFT SHIFT is Present. Influenza virus A and B and SARS-CoV-2 (COVID-19) and Respiratory syncytial virus RNAOrdered By: Avtar Ervin on 02-10-2024 SARS-CoV-2 (COVID-19) RNA DIGNA+probe Ql (Unsp spec) [facility] Lymphocytes Auto (Unsp spec) [#/Vol]Ordered By: Avtar Ervin on 02-10-2024 Lymphocytes (Bld) [#/Vol] 0.69 10*3/uL Low 0.83-4.51 [facility] Lymphocytes/100 WBC Auto (Un sp spec)Ordered By: Avtar Ervin on 02-10-2024 Lymphocytes/100 WBC (Bld) 6.9 % Low 19-41 [facility] M100.678on 02-10-2024 M100.678 Pending SARS-CoV-2 (COVID 19) Negative INFLUENZA A Negative INFLUENZA B Negative RSV PCR Negative Normal [facility] Comment on above: Performed By: #### L 300.5304 #### [facility] [address] [place] [address], [id number] MCV (mean corpuscular volume ) determinationOrdered By: Avtar Ervin on 02-10-2024 MCV (RBC) [Entitic vol] 103.7 fL High 81-99 [facility] Mean corpuscular hemoglobin (MCH) determinationOrdered By: Avtar Ervin on 02-10-2024 MCH (RBC) [Entitic mass] 34.1 pg High 27.0-32.0 [facility] Mean corpuscular hemoglobin concentration (MCHC) determinationOrdered By: Avtar Ervin on 02-10-2024 MCHC (RBC) [Mass/Vol] 32.8 g/dL 32-36 [facility] Mean platelet volume determi nationOrdered By: Avtar Ervin on 02-10-2024 Platelet mean volume (Bld) [Entitic vol] 9.7 fL 6.2-12.0 [facility] Monocyte percentageOrdered B y: Avtar Ervin on 02-10-2024 Monocytes/100 WBC (Bld) 12.2 % High 0-10 [facility] Neutrophil percentageOrdered By: Avtar Ervin on 02-10-2024 Neutrophils/100 WBC (Bld) 77.3 % High 47-70 [facility] Nucleated red blood cell per centageOrdered By: Avtar Le on 02-10-2024 Nucleated RBC/100 WBC (Bld) [Ratio] 0 % 0-5 [facility] Platelet countOrdered By: Alan elmore Aziza on 02-10-2024 Platelets (Bld) [#/Vol] 228 10*3/uL 150-450 [facility] Potassium measurementOrdered By: Avtar Ervin on 02-10-2024 Potassium [Moles/Vol] 3.8 mmol/L 3.5-5.1 [facility] RBC Auto (Bld) [#/Vol]Ordere d By: Avtar Le on 02-10-2024 RBC (Bld) [#/Vol] 3.23 10*6/uL Low 4.2-5.4 [facility] Serum anion gap measurementO rdered By: Avtar Ervin on 02-10-2024 Anion gap [Moles/Vol] 7 mmol/L 5-15 [facility] Serum or plasma calcium geoffrey urement (mass/volume)Ordered By: Avtar Ervin on 02-10-2024 Calcium [Mass/Vol] 9.5 mg/dL 8.5-10.1 [facility] Serum or plasma creatinine m easurement (mass/volume)Ordered By: Avtar Ervin on 02-10-2024 Creatinine [Mass/Vol] 2.08 mg/dL High 0.55-1.02 [facility] Comment on above: The validity of the calculated GFR & GFRAA in patients over 70 years has not been determined. Clinical correlation is essential. Serum or plasma urea nitroge n measurement (mass/volume)Ordered By: Avtar Ervin on 02-10-2024 Urea nitrogen [Mass/Vol] 47 mg/dL High 7-18 [facility] Sodium levelOrdered By: Avtar Ervin on 02-10-2024 Sodium [Moles/Vol] 141 mmol/L 136-145 [facility] White blood cell (WBC) count Ordered By: Avtar Ervin on 02-10-2024 WBC (Bld) [#/Vol] 10.0 10*3/uL 4.4-11.0 [facility] 12 Lead [place] [facility] [place]-09-2024 12 Lead EKG performed by [facility] [address] [place] [address] 12 Lead EKG performed by [facility] 02/09/24 0834 MR#: [id number] Acct: [id number] Name: DONNA NARANJO I Rep #: [id number] : 1940 83 From: Alfa Bush GLAZE HANDLER GLAZE HANDLER-C Attending Dr: Alfa Bush, GLAZE HANDLER-C Status: DEP AMB Ordering Dr: Alfa Bush GLAZE HANDLER GLAZE HANDLER-C Date: 02/09/24 [place] [facility] Sex: F C Admitted: BMS/12 Lead EKG performed by [facility] ECG Report Interpretation -------Atrial Fibrillation Rate 99-Nonspecific QRS widening and anterior fascicular block. -Poor R-wave progression -nonspecific -consider old anterior infarct. -Nonspecific ST depression + Nonspecific T-abnormality -Nondiagnostic. ABNORMAL compared to 08/21/2023 ECG no significant changesElectronical ly signed on 02/26/2024 at 11:[address] Douglas Oglesby Software Version 8610 02/26/24 1125 Date Alfa Bush GLAZE HANDLER GLAZE HANDLER-C CC: Dr. Mireille Garnica MD Date Dictated: 02/09/24833 Date Transcribed: 02/09/24833 Lead Qa Analyst: BRENT Signed Normal [facility] Cardiology Visit Reporton Cardiology Visit Report [facility] [address] [place] [address] OFFICE VISIT Date of Service: 02/09/24 MR#: [id number] Acct: [id number] Name: DONNA NARANJO I Rep #: [id number] : 1940 Provider: AB manrique Age/Sex: 83/F [place] [facility] Status: Signed HPI HPI History of Present Illness Details: This lady has past medical history significant for rheumatic heart disease status post mitral and aortic valve replacements with prosthetic valves. She has history of paroxysmal atrial fibrillation/flutte r. She has had multiple cardioversions done in the past. She denies chest, arm, jaw, or chest discomfort. She denies palpitations. She acknowledges bilateral lower extreme edema that is worse on the left than the right. She denies claudication. She continues with shortness of breath with activity. She does not feel this to be worsening. She denies shortness of breath at rest or Ortho pi???a. She acknowledges nausea. She denies lightheadedness, dizziness, near-syncope, or syncope. She continues with fatigue. Intake Vital Signs 01/12/24 10:29 02/09/24 10:41 Height 5 ft 3 in 5 ft 3 in Weight: 139 lb BMI 24.6 BP 92/61 Blood Pressure Location Lt brachial Position Sitting Respiration 18 Pulse 93 Pulse Source Monitor Pulse Oximetry (%) 96 Oxygen Delivery Method room air Intake Visit Reasons: 4 W FU Intelligence Research Specialist Required: No Accompanied by: Is patient in pain?: No Allergies latex Allergy (Verified 02/10/24 01:12) Itching Penicillins Allergy (Verified 02/10/24 01:12) Rash Medications ???Medication ???Instructions ???Recorded ???Confirmed ???Type aspirin 81 mg chewable tablet 81 mg PO DAILY@0800 08/12/14 02/09/24 History ascorbic acid (vitamin C) 1,000 mg 1 g PO DAILY 07/26/18 02/09/24 History tablet BP Machine and Cuff #1 ea 02/24/21 01/12/24 Rx acetaminophen 650 mg 1,300 mg PO Q12H 01/03/22 02/09/24 History tablet,extended release cholecalciferol (vitamin D3) 125 125 mcg PO DAILY 01/03/22 02/09/24 History mcg (5,000 unit) tablet losartan 25 mg tablet 25 mg PO DAILY #90 tabs 05/02/23 02/09/24 Rx simvastatin 20 mg tablet 20 mg PO QPM #90 tabs 05/02/23 02/09/24 Rx enoxaparin 60 mg/0.6 mL 60 mg subcut Q12H PRN 12/28/23 02/09/24 History subcutaneous syringe warfarin 1 mg tablet 1 mg PO .COMPLEX #180 tabs 12/28/23 02/09/24 Rx furosemide 20 mg tablet (Lasix) 40 mg (2 x 20 mg) PO DAILY #90 tabs 12/29/23 02/09/24 Rx metoprolol tartrate 100 mg tablet 100 mg PO BID #180 tabs 01/22/24 02/09/24 Rx amiodarone 200 mg tablet 200 mg PO QDAY #30 tabs 01/26/24 02/09/24 Rx Have you fallen in the past year?: No PFSH Medical History Fatigue Bradycardia Sacroiliitis Dyspnea on exertion Low back pain Lightheadedness Osteopenia after menopause Right knee DJD Chondrocalcinosis of knee Lumbar degenerative disc disease 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 Greater trochanteric bursitis Elevated TSH History of skin cancer Hx of osteopenia Hx of gallstones Hx of cataract Hx: UTI (urinary tract infection) History of back problems senior care current use of amiodarone RUIZ (dyspnea on exertion) Lichen sclerosus Cystocele with uterine descensus Shingles Hypersomnia, unspecified Migraines Psoriasis 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 Hyperlipidemia Atrial flutter, paroxysmal 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 Surgical History History of mitral valve replacement with mechanical valve ( 07/12/00) History of mechanical aortic valve replacement ( 01/20/15) History of surgery on arm History of right and left heart catheterization (12/26/14) History of thoracentesis (02/01/15) Hx of cholecystectomy Right Tibial ORIF History of cardioversion (12/28/18) H/O mitral valve replacement (07/12/00) H/O aortic valve replacement (01/20/15) Family History Other Adopted Social History household members: significant other housing: house current occupational status: retired current occupation: worked at [employer] sexually active: Yes Smoking Status: Never smoker Electronic Cigarette Use: not used alcohol intake: never substance use type: does not use caffeine: Yes what type of physical activity do you participate in: none seatbelt use: sometimes do you feel safe at home: Yes additional social history: - Joey Patient and retired ROS Const Const: Positive for fatigue and weakness ENT ENT: Negative for dizziness or balance (more content not included)... Normal [facility] Prothrombin Time w/INRon INR Coag (PPP) [Relative time] 3.8 {INR} Normal [facility] Comment on above: Performed By: #### L 300.3900 #### [facility] [address] [place], [address] PT Coag (PPP) [Time] 36.8 s High 11.7-14.9 [facility] Comment on above: Performed By: #### L 300.3900 #### [facility] [address] [place], [address] Prothrombin Time w/INRon INR Coag (PPP) [Relative time] 2.3 {INR} Normal [facility] Comment on above: Performed By: #### L 300.3900 #### [facility] [address] [place], [address] PT Coag (PPP) [Time] 25.4 s High 11.7-14.9 [facility] Comment on above: Performed By: #### L 300.3900 #### [facility] [address] [place], [address] Prothrombin Time w/INRon INR Coag (PPP) [Relative time] 2.7 {INR} Normal [facility] Comment on above: Performed By: #### L 300.3900 #### [facility] [address] [place], [place], [address] PT Coag (PPP) [Time] 28.4 s High 11.7-14.9 [facility] Comment on above: Performed By: #### L 429.3902 #### [facility] [address] [place], [address] Cardiology Visit Reporton Cardiology Visit Report [facility] [address] [place] [address] OFFICE VISIT Date of Service: 01/12/24 MR#: [id number] Acct: [id number] Name: DONNA NARANJO I Rep #: [id number] : 1940 Provider: AB manrique Age/Sex: 83/F [place] [facility] Status: Signed HPI HPI History of Present Illness Details: This lady has past medical history significant for rheumatic heart disease status post mitral and aortic valve replacements with prosthetic valves. She has history of paroxysmal atrial fibrillation/flutte r. She has had multiple cardioversions done in the past. She underwent an echocardiogram on 01/12/2024. Phone call was received from cardiovascular diagnostic department expressing concerns that ejection fraction is reduced compared to previous. Patient was asked to present to the office. Twelve-lead ECG showed sinus rhythm with rate variation at 100 bpm. She acknowledges ongoing weakness, nausea, and lightheadedness since last office visit. She denies any new chest pain. She continues with shortness of breath with activity. She is overall all concerned that symptoms seem to progress since office visit. Intake Vital Signs 12/28/23 11:25 01/12/24 10:29 Height 5 ft 3 in 5 ft 3 in Weight: 141 lb 140 lb BMI 25.0 24.7 BP 111/71 110/74 Blood Pressure Location Lt brachial Lt brachial Position Sitting Sitting Respiration 18 18 Pulse 99 107 H Pulse Source NIBP Monitor Pulse Oximetry (%) 96 Intake Visit Reasons: F/U ABN ACHO - OK PER [employer] Intelligence Research Specialist Required: No Is patient in pain?: No Allergies latex Allergy (Verified 01/12/24 10:29) Itching Penicillins Allergy (Verified 01/12/24 10:29) Rash Medications ???Medication ???Instructions ???Recorded ???Confirmed ???Type aspirin 81 mg chewable tablet 81 mg PO DAILY@0800 08/12/14 01/12/24 History ascorbic acid (vitamin C) 1,000 mg 1 g PO DAILY 07/26/18 01/12/24 History tablet BP Machine and Cuff #1 ea 02/24/21 01/12/24 Rx acetaminophen 650 mg 1,300 mg PO Q12H 01/03/22 01/12/24 History tablet,extended release cholecalciferol (vitamin D3) 125 125 mcg PO DAILY 01/03/22 01/12/24 History mcg (5,000 unit) tablet losartan 25 mg tablet 25 mg PO DAILY #90 tabs 05/02/23 01/12/24 Rx simvastatin 20 mg tablet 20 mg PO QPM #90 tabs 05/02/23 01/12/24 Rx metoprolol tartrate 25 mg tablet 37.5 mg (1.5 x 25 mg) PO .COMPLEX 09/26/23 01/12/24 Rx #270 tabs enoxaparin 60 mg/0.6 mL 60 mg subcut Q12H PRN 12/28/23 01/12/24 History subcutaneous syringe warfarin 1 mg tablet 1 mg PO .COMPLEX #180 tabs 12/28/23 01/12/24 Rx furosemide 20 mg tablet (Lasix) 40 mg (2 x 20 mg) PO DAILY #90 tabs 12/29/23 01/12/24 Rx Have you fallen in the past year?: No PFSH Medical History (Updated 12/28/23 @ 13:16 by Alfa Bush GLAZE HANDLER, GLAZE HANDLER-C) Fatigue Bradycardia Sacroiliitis Dyspnea on exertion Low back pain Lightheadedness Osteopenia after menopause Right knee DJD Chondrocalcinosis of knee Lumbar degenerative disc disease 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 Greater trochanteric bursitis Elevated TSH History of skin cancer Hx of osteopenia Hx of gallstones Hx of cataract Hx: UTI (urinary tract infection) 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 RUIZ (dyspnea on exertion) Lichen sclerosus Cystocele with uterine descensus Shingles Hypersomnia, unspecified Migraines Psoriasis 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 Hyperlipidemia Atrial flutter, paroxysmal 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) 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 Surgical History History of mitral valve replacement with mechanical valve ( 07/12/00) History of mechanical aortic valve replacement ( 01/20/15) History of surgery on arm History of right and left heart catheterization (12/26/14) History of thoracentesis (02/01/15) Hx of cholecystectomy Right Tibial ORIF History of cardioversion (12/28/18) H/O mitral valve replacement (07/12/00) H/O aortic valve replacement (01/20/15) Family History Other Adopted Social History household members: significant other housing: house current occupational status: retired current occupation: worked at [employer] sexually active: Yes Smoking Status: Never smoker Electronic Cigarette Use: not used alcohol intake: never substance use type: does not use caffeine: Yes what type of physical activity do you participate in: none seatbelt use: sometimes do you feel safe at home: Yes additional social history: - Joey Patient and retired ROS Const Const: Po (more content not included)... Normal [facility] Echo Completeon 01-12-2024 Echo Complete [facility] [address] [place] [address] Echo Complete 01/12/24 0906 MR#: [id number] Acct: [id number] Name: DONNA NARANJO I Rep #: [id number] : 1940 83 From: Colleen Alegria MD Attending Dr: MARTY SalazarC Status: REG CLI Ordering Dr: Alfa Bush NP GLAZE HANDLER-C Date: 01/12/24 Location: [facility] Sex: F C Admitted: Reason For Study: SOB Procedure This was a 2D Doppler, Color Flow transthoracic echocardiogram. Exam performed in department. Left Ventricle Normal LV size. Mild assymetric septal hypertrophy. The estimated ejection fraction is 15-20 %. Severe global left ventricular systolic dysfunction. Right Ventricle Normal RV size. Normal systolic function. Atria The left atrium is moderately enlarged. The right atrium is mildly enlarged. Mitral Valve Trivial mitral valve insufficiency. Stable appearing mechanical mitral valve apparatus. Tricuspid Valve Normal tricuspid valve. Mild to moderate (1-2+) tricuspid valve insufficiency. Pulmonary artery systolic pressure is 28 mmHg. Aortic Valve Mild (1+) aortic valve insufficiency. Stable appearing mechanical aortic valve apparatus. Pulmonic Valve Normal pulmonic valve. Mild (1+) pulmonic valve insufficiency. Great Vessels Mildly dilated aortic root. Pericardium/Pleural No pericardial effusion. MMode/2D Measurements Calculations LVIDd: 5.2 cm IVSd: 1.2 cm LVOT diam: 2.0 cm LVIDs: 4.3 cm LVPWd: 0.93 cm LVOT area: 3.3 cm2 RVDd: 3.6 cm FS: 16.3 % Ao root diam: 4.1 cm LAV(MOD-bp): 110.2 ml LVAd ap4: 29.9 cm2 LAV(MOD-bp) Indexed: 66.9 ml/m2 LVLd ap4: 7.1 cm LAV(MOD-sp2): 100.9 ml EDV(MOD-sp4): 105.6 ml LAV(MOD-sp4): 105.4 ml EDV(sp4-el): 107.2 ml LVAs ap4: 26.7 cm2 LVLs ap4: 6.9 cm ESV(MOD-sp4): 87.1 ml ESV(sp4-el): 88.0 ml EF(MOD-sp4): 17.5 % EF(sp4-el): 17.9 % LVAd ap2: 36.7 cm2 SV(MOD-sp4): 18.5 ml SV(MOD-sp2): 41.6 ml LVLd ap2: 7.8 cm SI(MOD-sp4): 11.2 ml/m2 SI(MOD-sp2): 25.3 ml/m2 EDV(MOD-sp2): 144.9 ml EDV(sp2-el): 145.5 ml LVAs ap2: 30.9 cm2 LVLs ap2: 7.6 cm ESV(MOD-sp2): 103.2 ml ESV(sp2-el): 106.6 ml EF(MOD-sp2): 28.7 % SV(sp4-el): 19.2 ml LA dimension(2D): 4.4 cm LA A4 area: 29.0 cm2 RA A4 area: 23.0 cm2 Doppler Measurements Calculations MV E max paris: 114.7 cm/sec Lat Peak E' Paris: 7.2 cm/sec Med Peak E' Paris: 3.4 cm/sec E/E' lat: 16.0 E/E' med: 34.2 MV V2 max: 122.5 cm/sec MV P1/2t max paris: 118.6 cm/sec Ao V2 max: 137.5 cm/sec MV max P.0 mmHg MV P1/2t: 61.4 msec Ao max P.6 mmHg MV V2 mean: 82.7 cm/sec MV dec slope: 565.8 cm/sec2 Ao V2 mean: 95.9 cm/sec MV mean P.0 mmHg Ao mean P.4 mmHg MV V2 VTI: 17.4 cm MVA(P1/2t): 3.6 cm2 Ao V2 VTI: 21.0 cm MVA(VTI): 4.1 cm2 AV (velocity ratio): 1.0 CHRISTINA(I,D): 3.4 cm2 CHRISTINA(V,D): 3.2 cm2 LV V1 max: 134.2 cm/sec SV(LVOT): 71.6 ml PA V2 max: 67.4 cm/sec LV V1 max P.2 mmHg PA V2 mean: 44.4 cm/sec LV V1 mean P.1 mmHg LV V1 mean: 95.4 cm/sec LV V1 VTI: 21.9 cm TR max paris: 250.7 cm/sec TR max P.3 mmHg ECHO/Echo Complete Interpretation Summary The estimated ejection fraction is 15-20 %. Severe global left ventricular systolic dysfunction. Mild assymetric septal hypertrophy. The left atrium is moderately enlarged. The right atrium is mildly enlarged. Stable appearing mechanical mitral valve apparatus. Stable appearing mechanical aortic valve apparatus. Mild (1+) aortic valve insufficiency. Mildly dilated aortic root. Compared to prior echo, the LV function has worsened. __ Ordering Physician: Alfa Bush Referring Physician: MIREILLE GARNICA Performed By: Kathi Napier RCS 01/12/24 1531 Date Colleen Alegria MD CC: GLAZE HANDLER-C Alfa Bush; Dr. Mireille Garnica MD Date Dictated: 01/12/24905 Date Transcribed: 01/12/241530 Lead Qa Analyst: Signed Normal [facility] BNP,B-Type NATRIURETIC PEPTI Lauri 12-28-2023 Natriuretic peptide B (Bld) [Mass/Vol] 620.7 pg/mL High 0-100 [facility] Comment on above: Performed By: #### L 300.3900 #### [facility] [address] [place], [address] CBC W/Diff, Automatedon 11-0 Absolute Lymph 1.05 X10 3/uL Normal 0.83-4.51 [facility] Comment on above: Performed By: #### L 300.3900 #### [facility] [address] [place], [address] Absolute Neut 4.8 X10 3/uL Normal 2.0-7.7 [facility] Comment on above: Performed By: #### L 300.3900 #### [facility] [address] [place], [address] Basophils/100 WBC (Bld) 1.0 % Normal 0-1 [facility] Comment on above: Performed By: #### L 300.3900 #### [facility] [address] [place], [address] Eosinophils/100 WBC (Bld) 4.5 % Normal 0-5 [facility] Comment on above: Performed By: #### L 300.3900 #### [facility] [address] [place], [address] Erythrocyte distribution width (RBC) [Ratio] 15.3 % High 11.6-14.6 [facility] Comment on above: Performed By: #### L 300.3900 #### [facility] [address] [place], [address] Hematocrit (Bld) [Volume fraction] 35.5 % Low 37-47 [facility] Comment on above: Performed By: #### L 300.3900 #### [facility] [address] [place], [address] Hemoglobin (Bld) [Mass/Vol] 11.3 g/dL Low 12.0-15.0 [facility] Comment on above: Performed By: #### L 300.3900 #### [facility] [address] [place], [address] IG% 0.300 Normal 0.0-0.9 [facility] Comment on above: Result Comment: IG% - Immature Granulocytes (promyelocytes, myelocytes and metamyelocytes) > 1% indicates that a LEFT SHIFT is Present. Performed By: #### L 300.3900 #### [facility] [address] [place], [address] Lymphocytes/100 WBC (Bld) 14.7 % Low 19-41 [facility] Comment on above: Performed By: #### L 300.3900 #### [facility] [address] [place], [address] MCH (RBC) [Entitic mass] 34.0 pg High 27.0-32.0 [facility] Comment on above: Performed By: #### L 300.3900 #### [facility] [address] [place], [address] MCHC (RBC) [Mass/Vol] 31.8 g/dL Low 32-36 [facility] Comment on above: Performed By: #### L 300.3900 #### [facility] [address] [place], [address] MCV (RBC) [Entitic vol] 106.9 fL High 81-99 [facility] Comment on above: Performed By: #### L 300.3900 #### [facility] [address] [place], [address] Monocytes/100 WBC (Bld) 13.1 % High 0-10 [facility] Comment on above: Performed By: #### L 300.3900 #### [facility] [address] [place], [address] Neutrophils/100 WBC (Bld) 66.4 % Normal 47-70 [facility] Comment on above: Performed By: #### L 300.3900 #### [facility] [address] [place], [address] Nucleated RBC (Bld) [#/Vol] 0 10*3/uL Normal 0-5 [facility] Comment on above: Performed By: #### L 300.3900 #### [facility] [address] [place], [address] Platelet mean volume (Bld) [Entitic vol] 9.5 fL Normal 6.2-12.0 [facility] Comment on above: Performed By: #### L 300.3900 #### [facility] [address] [place], [address] Platelets (Bld) [#/Vol] 239 10*3/uL Normal 150-450 [facility] Comment on above: Performed By: #### L 300.3900 #### [facility] [address] [place], [address] RBC (Bld) [#/Vol] 3.32 10*6/uL Low 4.2-5.4 [facility] Comment on above: Performed By: #### L 300.3900 #### [facility] [address] [place], [address] RDW SD 60.4 fl High 35.1-43.9 [facility] Comment on above: Performed By: #### L 300.3900 #### [facility] [address] [place], [address] WBC (Bld) [#/Vol] 7.2 10*3/uL Normal 4.4-11.0 [facility] Comment on above: Performed By: #### L 300.3900 #### [facility] [address] [place], [address] Cardiology Visit Reporton Cardiology Visit Report [facility] [address] [place], [place] [address] OFFICE VISIT Date of Service: 12/28/23 MR#: [id number] Acct: [id number] Name: DONNA NARANJO I Rep #: [id number] : 1940 Provider: AB manrique Age/Sex: 83/F Location[place] [facility] Status: Signed HPI HPI History of Present Illness Details: This lady has past medical history significant for rheumatic heart disease status post mitral and aortic valve replacements with prosthetic valves. She has history of paroxysmal atrial fibrillation/flutte r. She has had multiple cardioversions done in the past. She denies chest, arm, jaw, or neck discomfort. She denies palpitations. She continues with bilateral lower extremity edema. She denies claudication. She states shortness of breath with activity. She had to stop 3 times walking to our office to catch her breath. She denies shortness of breath at rest, orthopnea, or PND. She denies chronic cough. She denies significant, sudden weight gain. She denies lightheadedness, dizziness, near-syncope, or syncope. She denies blood in urine, blood in stool, or epistaxis. He denies fever with chills. She denies myalgia. She states fatigue. Her exercise level has remained stable. Intake Vital Signs 07/24/23 10:26 12/28/23 11:25 Height 5 ft 3 in 5 ft 3 in Weight: 141 lb BMI 25.0 BP 111/71 Blood Pressure Location Lt brachial Position Sitting Respiration 18 Pulse 99 Pulse Source NIBP Intake Visit Reasons: 3 m fu Intelligence Research Specialist Required: No Accompanied by: Is patient in pain?: No Allergies latex Allergy (Verified 12/28/23 11:40) Itching Penicillins Allergy (Verified 12/28/23 11:40) Rash Medications ???Medication ???Instructions ???Recorded ???Confirmed ???Type aspirin 81 mg chewable tablet 81 mg PO DAILY@0800 08/12/12/28/23 History ascorbic acid (vitamin C) 1,000 mg 1 g PO DAILY 07/26/18 12/28/23 History tablet BP Machine and Cuff #1 ea 02/24/21 11/23/22 Rx acetaminophen 650 mg 1,300 mg PO Q12H 01/03/22 12/28/23 History tablet,extended release cholecalciferol (vitamin D3) 125 125 mcg PO DAILY 01/03/22 12/28/23 History mcg (5,000 unit) tablet furosemide 20 mg tablet (Lasix) 20 mg PO DAILY #90 tabs 05/02/23 12/28/23 Rx losartan 25 mg tablet 25 mg PO DAILY #90 tabs 05/02/23 12/28/23 Rx simvastatin 20 mg tablet 20 mg PO QPM #90 tabs 05/02/23 12/28/23 Rx metoprolol tartrate 25 mg tablet 37.5 mg (1.5 x 25 mg) PO .COMPLEX 09/26/23 12/28/23 Rx #270 tabs enoxaparin 60 mg/0.6 mL 60 mg subcut Q12H PRN 12/28/23 History subcutaneous syringe warfarin 1 mg tablet 1 mg PO .COMPLEX #180 tabs 12/28/23 Rx Ejection fraction %: 55 Have you fallen in the past year?: No PFSH Medical History (Updated 12/28/23 @ 13:16 by Alfa Bush NP, GLAZE HANDLER-C) Fatigue Bradycardia Sacroiliitis Dyspnea on exertion Low back pain Lightheadedness Osteopenia after menopause Right knee DJD Chondrocalcinosis of knee Lumbar degenerative disc disease 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 Greater trochanteric bursitis Elevated TSH History of skin cancer Hx of osteopenia Hx of gallstones Hx of cataract Hx: UTI (urinary tract infection) 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 RUIZ (dyspnea on exertion) Lichen sclerosus Cystocele with uterine descensus Shingles Hypersomnia, unspecified Migraines Psoriasis 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 Hyperlipidemia Atrial flutter, paroxysmal 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 Surgical History History of mitral valve replacement with mechanical valve ( 07/12/00) History of mechanical aortic valve replacement ( 01/20/15) History of surgery on arm History of right and left heart catheterization (12/26/14) History of thoracentesis (02/01/15) Hx of cholecystectomy Right Tibial ORIF History of cardioversion (12/28/18) H/O mitral valve replacement (07/12/00) H/O aortic valve replacement (01/20/15) Family History Other Adopted Social History household members: significant other housing: house current occupational status: retired current occupation: worked at [employer] sexually active: Yes Smoking Status: Never smoker Electronic Cigarette Use: not used alcohol intake: never substance use type: does not use caffeine: Yes what type of physical activity do you participate in: none seatbelt use: sometimes do you feel safe at home: Yes additional social history: - Joey Patient and retired ROS Const Const: Positive f (more content not included)... Normal [facility] Comprehensive Metabolic Prof [place] 12-28-2023 Albumin [Mass/Vol] 3.7 g/dL Normal 3.2-5.0 [facility] Comment on above: Performed By: #### L 300.3900 #### [facility] [address] [place], [address] Albumin/Globulin [Mass ratio] 1.2 {ratio} Normal 0.9-2.4 [facility] Comment on above: Performed By: #### L 300.3900 #### [facility] [address] [place], [address] ALK P 85 U/L Normal 45-117 [facility] Comment on above: Performed By: #### L 300.3900 #### [facility] [address] [place], [address] ALT [Catalytic activity/Vol] 23 U/L Normal 13-56 [facility] Comment on above: Performed By: #### L 300.3900 #### [facility] [address] [place], [address] AST [Catalytic activity/Vol] 27 U/L Normal 15-37 [facility] Comment on above: Performed By: #### L 300.3900 #### [facility] [address] [place], [address] Bilirubin [Mass/Vol] 0.80 mg/dL Normal 0.20-1.00 [facility] Comment on above: Result Comment: For patients on eltrombopag therapy, use of [place] TBIL is not recommended. Performed By: #### L 300.3900 #### [facility] [address] [place], [address] BUN/CRE 20.3 RATIO High 10-20 [facility] Comment on above: Performed By: #### L 300.3900 #### [facility] [address] [place], [address] CA,Total 9.3 mg/dL Normal 8.5-10.1 [facility] Comment on above: Performed By: #### L 300.3900 #### [facility] [address] [place], [address] Chloride [Moles/Vol] 111 mmol/L High 98-107 [facility] Comment on above: Performed By: #### L 300.3900 #### [facility] [address] [place], [address] CO2 [Moles/Vol] 26.0 mmol/L Normal 21.0-32.0 [facility] Comment on above: Performed By: #### L 300.3900 #### [facility] [address] [place], [address] Creatinine [Mass/Vol] 1.82 mg/dL High 0.55-1.02 [facility] Comment on above: Result Comment: The validity of the calculated GFR GFRAA in patients over 70 years has not been determined. Clinical correlation is essential. Performed By: #### L 300.3900 #### [facility] [address] [place], [address] EST GFR - AA 34 mL/min Low >60 [facility] Comment on above: Result Comment: Afri can [place] GFR Calc Performed By: #### L 300.3900 #### [facility] [address] [place], [address] GAP 4 Low 5-15 [facility] Comment on above: Performed By: #### L 300.3900 #### [facility] [address] [place], [address] GFR/1.73 sq M.predicted among non-blacks MDRD (S/P/Bld) [Vol rate/Area] 28 mL/min/{1.73_m2} Low >60 [facility] Comment on above: Result Comment: Non- GFR Calc Performed By: #### L 300.3900 #### [facility] [address] [place], [address] Globulin (S) [Mass/Vol] 3.2 g/dL Normal 2.2-4.2 [facility] Comment on above: Performed By: #### L 300.3900 #### [facility] [address] [place], [address] Glucose [Mass/Vol] 87 mg/dL Normal 74-106 [facility] Comment on above: Performed By: #### L 300.3900 #### [facility] [address] [place], [address] Potassium [Moles/Vol] 4.6 mmol/L Normal 3.5-5.1 [facility] Comment on above: Performed By: #### L 300.3900 #### [facility] [address] [place], [address] Sodium [Moles/Vol] 141 mmol/L Normal 136-145 [facility] Comment on above: Performed By: #### L 300.3900 #### [facility] [address] [place], [address] T PROT 6.9 g/dL Normal 6.4-8.2 [facility] Comment on above: Performed By: #### L 300.3900 #### [facility] [address] [place], [address] Urea nitrogen [Mass/Vol] 37 mg/dL High 7-18 [facility] Comment on above: Performed By: #### L 300.3900 #### [facility] [address] [place], [address] Magnesiumon 12-28-2023 Magnesium [Mass/Vol] 2.8 mg/dL High 1.6-2.6 [facility] Comment on above: Performed By: #### L 300.3900 #### [facility] [address] [place], [address] T4 Free Directon 12-28-2023 T4 FREE DIRECT 1.01 ng/dL Normal 0.76-1.46 [facility] Comment on above: Performed By: #### L 100.0100, L500.2500 #### [facility] [address] [place], [address] Thyroid Stim Hormone (TSH)on 12-28-2023 TSH 2.570 uIU/mL Normal 0.358-3.740 [facility] Comment on above: Performed By: #### L 100.0100, L500.2500 #### [facility] [address] [place], [address] Prothrombin Time w/INRon INR Coag (PPP) [Relative time] 3.1 {INR} Normal [facility] Comment on above: Performed By: #### L 100.0100, L500.2500 #### [facility] [address] [place], [address] PT Coag (PPP) [Time] 31.9 s High 11.7-14.9 [facility] Comment on above: Performed By: #### L 100.0100, L500.2500 #### [facility] [address] [place], [address] SCRN MAMM (CAD)W/EDDA BILATo n 12-20-2023 SCRN MAMM (CAD)W/EDDA BILAT [facility] Imaging Services [address] [place] [address] SCRN MAMM (CAD)W/EDDA BILAT MR#: [id number] Acct: [id number] Name: DONNA NARANJO I Rep #: [id number] : 1940 F 83 From: Walter henao MD PCP: Becca Azevedo DO Status: REG CLI Study: SCRN MAMM (CAD)W/EDDA BILAT Date of Exam: 11/22 Exam# [id number] Ordering Dr: Beth Condon NP, NP -[id number] MAMMOGRAPHY - BILATERAL SCREENING REASON FOR EXAM: Female, 83 years old. Routine annual screening examination. PERTINENT HISTORY: Aunt with breast cancer. TECHNIQUE: Digital bilateral breast edda (3D mammographic acquisition) in the CC and MLO projections. 2-D mediolateral oblique (MLO) and craniocaudad (CC) views of both breasts were obtained. CAD: Full Field Digital Mammography with Computer Added Detection was performed. COMPARISON: Comparison is made with prior study December 12, 2022 and December 10, 2019. FINDINGS: Breast Composition: There are scattered areas of fibroglandular density. There are no dominant masses or suspicious calcifications. Stable small fat-containing bilateral axillary lymph nodes. No other significant abnormalities are identified. There has been no significant change since the prior study. BI/SCRN MAMM (CAD)W/EDDA BILAT IMPRESSION: Stable bilateral screening mammogram. Yearly follow-up mammogram recommended. (A) ASSESSMENT CATEGORY: BIRADS Category 2: Benign. A letter regarding these results will be sent to the patient by the facility within 30 days. Approximately 10% of breast cancers are not detected by mammography. A normal mammogram should not delay biopsy of a clinically suspicious abnormality. [id number] Electronically Signed: Walter Vickers MD at 14:01 EDT , CC: AB Condon; Becca Azevedo DO Lead Qa Analyst: Signed Normal [facility] Prothrombin Time w/INRon INR Coag (PPP) [Relative time] 2.5 {INR} Normal [facility] Comment on above: Performed By: #### L 300.3900 #### [facility] [address] [place], [address] PT Coag (PPP) [Time] 26.8 s High 11.7-14.9 [facility] Comment on above: Performed By: #### L 300.3900 #### [facility] [address] [place], [address] Prothrombin Time w/INRon INR Coag (PPP) [Relative time] 2.7 {INR} Normal [facility] Comment on above: Performed By: #### L 300.3900 #### [facility] [address] [place], [address] PT Coag (PPP) [Time] 28.9 s High 11.7-14.9 [facility] Comment on above: Performed By: #### L 300.3900 #### [facility] [address] [place], [address] Prothrombin Time w/INRon INR Coag (PPP) [Relative time] 2.4 {INR} Normal [facility] Comment on above: Performed By: #### L 300.3900 #### [facility] [address] [place], [address] PT Coag (PPP) [Time] 25.9 s High 11.7-14.9 [facility] Comment on above: Performed By: #### L 300.3900 #### [facility] [address] [place], [address] Prothrombin Time w/INRon INR Coag (PPP) [Relative time] 2.3 {INR} Normal [facility] Comment on above: Performed By: #### L 100.0100, L500.2500 #### [facility] [address] [place], [address] PT Coag (PPP) [Time] 25.0 s High 11.7-14.9 [facility] Comment on above: Performed By: #### L 100.0100, L500.2500 #### [facility] [address] [place], [address] Prothrombin Time w/INRon - INR Coag (PPP) [Relative time] 2.2 {INR} Normal [facility] Comment on above: Performed By: #### L 300.3900 #### [facility] [address] [place], [address] PT Coag (PPP) [Time] 24.0 s High 11.7-14.9 [facility] Comment on above: Performed By: #### L 300.3900 #### [facility] [address] [place], [address] Prothrombin Time w/INRon INR Coag (PPP) [Relative time] 1.8 {INR} Normal [facility] Comment on above: Performed By: #### L 100.0100, L500.2500 #### [facility] [address] [place], [address] PT Coag (PPP) [Time] 20.3 s High 11.7-14.9 [facility] Comment on above: Performed By: #### L 100.0100, L500.2500 #### [facility] [address] [place], [address] Laboratory - CoagulationOrde red By: Alfa Bush on 06-14-2023 INR Coag (Bld) [Relative time] 2.3 {INR} [facility] PT Coag (PPP) [Time] 24.8 s 11.7-14.9 [facility] Laboratory - CoagulationOrde red By: Alfa Bush on 05-02-2023 INR Coag (Bld) [Relative time] 2.5 {INR} [facility] PT Coag (PPP) [Time] 26.6 s 11.7-14.9 [facility] Laboratory - CoagulationOrde red By: Chante Cao on 04-05-2023 INR Coag (Bld) [Relative time] 2.6 {INR} [facility] PT Coag (PPP) [Time] 28.2 s 11.7-14.9 [facility] International normalized rat io (INR) calculationOrdered By: Alfa Bush on 03-07-2023 INR Coag (PPP) [Relative time] 2.6 {INR} [facility] - CoagulationOrde red By: Alfa Bush on 03-07-2023 PT Coag (PPP) [Time] 27.7 s 11.7-14.9 [facility] - CoagulationOrde red By: Alfa Bush on 02-07-2023 PT Coag (PPP) [Time] 29.1 s 11.7-14.9 [facility] Whole blood international no rmalized ratio (INR)Ordered By: Alfa Bush on 02-07-2023 INR Coag (Bld) [Relative time] 2.7 {INR} [facility] INR in Blood by Coagulation assayOrdered By: Kylah Santizo on 01-24-2023 INR Coag (Bld) [Relative time] 2.7 {INR} [facility] Laboratory - Chemistry and C hemistry - challengeOrdered By: Kylah Santizo on 01-24-2023 ALT [Catalytic activity/Vol] 22 U/L 13-56 [facility] - CoagulationOrde red By: Kylah Santizo on 01-24-2023 PT Coag (PPP) [Time] 29.3 s 11.7-14.9 [facility] No Panel InformationOrdered By: Kylah Santizo on 01-24-2023 Thyroid Stimulating Hormone (TSH) 4.81 uIU/mL 0.358-3.74 [facility] Thin prep Papanicolaou smear with manual screeningOrdered By: Kylah Santizo on 01-24-2023 Thin prep Papanicolaou smear with manual screening 25 U/L 15-37 [facility] Basophil percentageOrdered B y: Kylah Santizo on 01-17-2023 Chloride [Moles/Vol] 109 mmol/L 98-107 [facility] Glucose [Mass/Vol] 95 mg/dL 74-106 [facility] Potassium [Moles/Vol] 3.6 mmol/L 3.5-5.1 [facility] Sodium [Moles/Vol] 140 mmol/L 136-145 [facility] INR in Blood by Coagulation assayOrdered By: Alfa Bush on 01-17-2023 INR Coag (Bld) [Relative time] 2.2 {INR} [facility] Laboratory - Chemistry and C hemistry - challengeOrdered By: Kylah Santizo on 01-17-2023 CO2 [Moles/Vol] 28.0 mmol/L 21.0-32.0 [facility] Urea nitrogen/Creatinine [Mass ratio] 20.9 mg/mg 10-20 [facility] Laboratory - CoagulationOrde red By: Alfa Bush on 01-17-2023 PT Coag (PPP) [Time] 24.7 s 11.7-14.9 [facility] No Panel InformationOrdered By: Kylah Santizo on 01-17-2023 Estimated GFR (MDRD) Amer 32 mL/min >60 [facility] Comment on above: GFR Calc Estimated GFR (MDRD) Non-Af Amer 26 mL/min >60 [facility] Comment on above: Non- GFR Calc Serum or plasma calcium geoffrey urement (mass/volume)Ordered By: Kylah Santizo on 01-17-2023 Calcium [Mass/Vol] 9.3 mg/dL 8.5-10.1 [facility] Serum or plasma creatinine m easurement (mass/volume)Ordered By: Kylah Santizo on 01-17-2023 Creatinine [Mass/Vol] 1.96 mg/dL 0.55-1.02 [facility] Comment on above: The validity of the calculated GFR & GFRAA in patients over 70 years has not been determined. Clinical correlation is essential. Serum or plasma urea nitroge n measurement (mass/volume)Ordered By: Kylah Santizo on 01-17-2023 Urea nitrogen [Mass/Vol] 41 mg/dL 7-18 [facility] Thin prep Papanicolaou smear with manual screeningOrdered By: Kylah Santizo on 01-17-2023 Thin prep Papanicolaou smear with manual screening 3 5-15 [facility] INR in Blood by Coagulation assayOrdered By: Alfa Bush on 12-20-2022 INR Coag (Bld) [Relative time] 2.4 {INR} [facility] Laboratory - CoagulationOrde red By: Alfa Bush on 12-20-2022 PT Coag (PPP) [Time] 26.7 s 11.7-14.9 [facility] INR in Blood by Coagulation assayOrdered By: Alfa Bush on 12-06-2022 INR Coag (Bld) [Relative time] 2.4 {INR} [facility] Laboratory - CoagulationOrde red By: Alfa Bush on 12-06-2022 PT Coag (PPP) [Time] 26.0 s 11.7-14.9 [facility] INR in Blood by Coagulation assayOrdered By: Alfa Bush on 10-25-2022 INR Coag (Bld) [Relative time] 2.9 {INR} [facility] Laboratory - CoagulationOrde red By: Alfa Bush on 10-25-2022 PT Coag (PPP) [Time] 31.0 s 11.7-14.9 [facility] INR in Blood by Coagulation assayOrdered By: Alfa Bush on 09-27-2022 INR Coag (Bld) [Relative time] 2.9 {INR} [facility] Laboratory - CoagulationOrde red By: Alfa Bush on 09-27-2022 PT Coag (PPP) [Time] 30.5 s 11.7-14.9 [facility] INR in Blood by Coagulation assayOrdered By: Alfa Bush on 08-30-2022 INR Coag (Bld) [Relative time] 3.4 {INR} [facility] Laboratory - CoagulationOrde red By: Alfa Bush on 08-30-2022 PT Coag (PPP) [Time] 34.9 s 11.7-14.9 [facility] INR in Blood by Coagulation assayOrdered By: Alfa Bush on 08-09-2022 INR Coag (Bld) [Relative time] 2.6 {INR} [facility] Laboratory - CoagulationOrde red By: Alfa Bush on 08-09-2022 PT Coag (PPP) [Time] 28.2 s 11.7-14.9 [facility] Laboratory - Chemistry and C hemistry - challengeOrdered By: Alfa Bush on 07-29-2022 Free T4 [Mass/Vol] 1.32 ng/dL 0.76-1.46 [facility] No Panel Informationon 07-29 INR International Normalized Ratio 6.5 [facility] INR in Blood by Coagulation assayOrdered By: Dr. Martines on 07-01-2022 INR Coag (Bld) [Relative time] 3.2 {INR} [facility] Laboratory - CoagulationOrde red By: Dr. Martines on 07-01-2022 PT Coag (PPP) [Time] 33.2 s 11.7-14.9 [facility] INR in Blood by Coagulation assayOrdered By: Dr. Martines on 06-03-2022 INR Coag (Bld) [Relative time] 2.7 {INR} [facility] Laboratory - CoagulationOrde red By: Dr. Martines on 06-03-2022 PT Coag (PPP) [Time] 28.5 s 11.7-14.9 [facility] INR in Blood by Coagulation assayOrdered By: Dr. Martines on 05-06-2022 INR Coag (Bld) [Relative time] 3.0 {INR} [facility] Laboratory - CoagulationOrde red By: Dr. Martines on 05-06-2022 PT Coag (PPP) [Time] 31.0 s 11.7-14.9 [facility] INR in Blood by Coagulation assayOrdered By: Dr. Martines on 04-14-2022 INR Coag (Bld) [Relative time] 2.8 {INR} [facility] Laboratory - CoagulationOrde red By: Dr. Martines on 04-14-2022 PT Coag (PPP) [Time] 29.0 s 11.7-14.9 [facility] INR in Blood by Coagulation assayOrdered By: Dr. Martines on 04-05-2022 INR Coag (Bld) [Relative time] 2.3 {INR} [facility] Laboratory - CoagulationOrde red By: Dr. Martines on 04-05-2022 PT Coag (PPP) [Time] 25.3 s 11.7-14.9 [facility] INR in Blood by Coagulation assayOrdered By: Dr. Martines on 03-23-2022 INR Coag (Bld) [Relative time] 3.0 {INR} [facility] Laboratory - CoagulationOrde red By: Dr. Martines on 03-23-2022 PT Coag (PPP) [Time] 30.5 s 11.7-14.9 [facility] Basophil percentageOrdered B y: Alfa Bush on 03-16-2022 Chloride [Moles/Vol] 106 mmol/L 98-107 [facility] Glucose [Mass/Vol] 91 mg/dL 74-106 [facility] Potassium [Moles/Vol] 4.2 mmol/L 3.5-5.1 [facility] Sodium [Moles/Vol] 139 mmol/L 136-145 [facility] Laboratory - Chemistry and C hemistry - challengeOrdered By: Alfa Bush on 03-16-2022 CO2 [Moles/Vol] 24.0 mmol/L 21.0-32.0 [facility] Natriuretic peptide B (Bld) [Mass/Vol] 161.6 pg/mL 0-100 [facility] Urea nitrogen/Creatinine [Mass ratio] 21.0 mg/mg 10-20 [facility] No Panel InformationOrdered By: Alfa Bush on 03-16-2022 Estimated GFR (MDRD) Amer 35 mL/min >60 [facility] Comment on above: GFR Calc Estimated GFR (MDRD) Non-Af Amer 29 mL/min >60 [facility] Comment on above: Non- GFR Calc Serum or plasma calcium geoffrey urement (mass/volume)Ordered By: Alfa Bush on 03-16-2022 Calcium [Mass/Vol] 10.0 mg/dL 8.5-10.1 [facility] Serum or plasma creatinine m easurement (mass/volume)Ordered By: Alfa Bush on 03-16-2022 Creatinine [Mass/Vol] 1.81 mg/dL 0.55-1.02 [facility] Comment on above: The validity of the calculated GFR & GFRAA in patients over 70 years has not been determined. Clinical correlation is essential. Serum or plasma urea nitroge n measurement (mass/volume)Ordered By: Alfa Bush on 03-16-2022 Urea nitrogen [Mass/Vol] 38 mg/dL 7-18 [facility] Thin prep Papanicolaou smear with manual screeningOrdered By: Alfa Bush on 03-16-2022 Thin prep Papanicolaou smear with manual screening 9 5-15 [facility] INR in Blood by Coagulation assayOrdered By: Dr. Martines on 03-08-2022 INR Coag (Bld) [Relative time] 2.4 {INR} [facility] Laboratory - CoagulationOrde red By: Dr. Martines on 03-08-2022 PT Coag (PPP) [Time] 26.0 s 11.7-14.9 [facility] Iron measurement (mass/mass) Ordered By: Dr. Jackson on 02-02-2022 Iron (Unsp spec) [Mass/Mass] 63 ug/dL 50-170 [facility] Laboratory - Chemistry and C hemistry - challengeOrdered By: Dr. Jackson on 02-02-2022 Cobalamin (Vitamin B12) [Mass/Vol] 388 pg/mL 211-911 [facility] Magnesium [Mass/Vol] 2.6 mg/dL 1.6-2.6 [facility] T4 [Mass/Vol] 12.1 ug/dL 4.8-13.9 [facility] No Panel InformationOrdered By: Dr. Jackson on 02-02-2022 Free Triiodothyronine (T3) pg/dL 1.9 pg/mL 2.18-3.98 [facility] Homocysteine 19.2 umol/L 3.2-10.7 [facility] Total Iron Binding Capacity 339 ug/dL 250-450 [facility] Vitamin D 25-Hydroxy 56.4 ng/mL [facility] Comment on above: Vitamin D 25(OH) Sta tus Range Deficiency <20 ng/mL (50nmol/L) Insufficiency 20 - 30 ng/mL (50 - 75 nmol/L) Sufficiency 30 - 100 ng/mL (75 - 250 nmol/L) Toxicity >100 ng/mL (>250 nmol/L) Serum or plasma ferritin lee surement (mass/volume)Ordered By: Dr. Jackson on 02-02-2022 Ferritin [Mass/Vol] 96 ng/mL 8-252 [facility] Serum or plasma folate measu rement (mass/volume)Ordered By: Dr. Jackson on 02-02-2022 Folate [Mass/Vol] 8.30 ng/mL 3.1-55.4 [facility] Serum or plasma iron saturat ion measurement (mass fraction)Ordered By: Dr. Jackson on 02-02-2022 Iron saturation [Mass fraction] 18.6 % 15.0-55.0 [facility] Absolute lymphocyte countOrd ered By: Alfa Bush on 01-31-2022 Lymphocytes Auto (Unsp spec) [#/Vol] 1.09 10*3/uL 0.83-4.51 [facility] Basophil percentageOrdered B y: Alfa Bush on 01-31-2022 Basophils/100 WBC (Bld) 1.3 % 0-1 [facility] Bilirubin [Mass/Vol] 0.70 mg/dL 0.20-1.00 [facility] Comment on above: For patients on eltr ombopag therapy, use of [place] TBIL is not recommended. Chloride [Moles/Vol] 111 mmol/L 98-107 [facility] Cholesterol [Mass/Vol] 190 mg/dL <200 [facility] Comment on above: <200 mg/dL Desirable 200-240 mg/dL Borderline >240 mg/dL High Risk Eosinophils/100 WBC (Bld) 5.8 % 0-5 [facility] Glucose [Mass/Vol] 92 mg/dL 74-106 [facility] Neutrophils (Bld) [#/Vol] 4.2 10*3/uL 2.0-7.7 [facility] Neutrophils/100 WBC (Bld) 62.7 % 47-70 [facility] Potassium [Moles/Vol] 4.3 mmol/L 3.5-5.1 [facility] Protein [Mass/Vol] 6.8 g/dL 6.4-8.2 [facility] Sodium [Moles/Vol] 141 mmol/L 136-145 [facility] Triglyceride [Mass/Vol] 111 mg/dL <199 [facility] Comment on above: The drugs N-Acetylcy steine and Metamizole may falsely depress this assay.Serum Triglycerides Reference Interval Normal <150 mg/dL Borderline high 150 - 199 mg/dL High 200 - 499 mg/dL Very High > or = 500 mg/dL WBC (Bld) [#/Vol] 6.7 10*3/uL 4.4-11.0 [facility] Blood erythrocytes count (nu mber/volume)Ordered By: Alfa Bush on 01-31-2022 RBC (Bld) [#/Vol] 3.36 10*6/uL 4.2-5.4 [facility] Blood hemoglobin measurement (mass/volume)Ordered By: Alfa Bush on 01-31-2022 Hemoglobin (Bld) [Mass/Vol] 11.1 g/dL 12.0-15.0 [facility] Blood lymphocytes/100 leukoc ytesOrdered By: Alfa Bush on 01-31-2022 Lymphocytes/100 WBC (Bld) 16.2 % 19-41 [facility] Blood monocytes/100 leukocyt esOrdered By: Alfa Bush on 01-31-2022 Monocytes/100 WBC (Bld) 13.6 % 0-10 [facility] Blood platelet mean volumeOr dered By: Alfa Bush on 01-31-2022 Platelet mean volume (Bld) [Entitic vol] 9.6 fL 6.2-12.0 [facility] Determination of erythrocyte mean corpuscular volume (MCV)Ordered By: Alfa Bush on 01-31-2022 MCV (RBC) [Entitic vol] 104.2 fL 81-99 [facility] Direct bilirubinOrdered By: Alfa Bush on 01-31-2022 Bilirubin.direct [Mass/Vol] 0.21 mg/dL 0.00-0.30 [facility] Hematocrit Auto (Bld) [Volum e fraction]Ordered By: Alfa Bush on 01-31-2022 Hematocrit (Bld) [Volume fraction] 35.0 % 37-47 [facility] INR in Blood by Coagulation assayOrdered By: Alfa Bush on 01-31-2022 INR Coag (Bld) [Relative time] 2.4 {INR} [facility] Laboratory - Chemistry and C hemistry - challengeOrdered By: Alfa Bush on 01-31-2022 ALP [Catalytic activity/Vol] 88 U/L 45-117 [facility] ALT [Catalytic activity/Vol] 30 U/L 13-56 [facility] CO2 [Moles/Vol] 27.0 mmol/L 21.0-32.0 [facility] Globulin (S) [Mass/Vol] 3.3 g/dL 2.2-4.2 [facility] Urea nitrogen/Creatinine [Mass ratio] 19.4 mg/mg 10-20 [facility] Laboratory - CoagulationOrde red By: Alfa Bush on 01-31-2022 PT Coag (PPP) [Time] 25.8 s 11.7-14.9 [facility] Laboratory - Hematology and Cell countsOrdered By: Alfa Bush on 01-31-2022 Erythrocyte distribution width (RBC) [Entitic vol] 60.8 fL 35.1-43.9 [facility] Erythrocyte distribution width (RBC) [Ratio] 15.8 % 11.6-14.6 [facility] Immature granulocytes/100 WBC (Bld) 0.400 % 0.0-0.9 [facility] Comment on above: IG% - Immature Granu locytes (promyelocytes, myelocytes and metamyelocytes) > 1% indicates that a LEFT SHIFT is Present. MCH (RBC) [Entitic mass] 33.0 pg 27.0-32.0 [facility] Nucleated RBC/100 WBC (Bld) [Ratio] 0 % 0-5 [facility] MCHC Auto (RBC) [Mass/Vol]Or dered By: Alfa Bush on 01-31-2022 MCHC (RBC) [Mass/Vol] 31.7 g/dL 32-36 [facility] No Panel InformationOrdered By: Alfa Bush on 01-31-2022 Estimated GFR (MDRD) Amer 36 mL/min >60 [facility] Comment on above: GFR Calc Estimated GFR (MDRD) Non-Af Amer 30 mL/min >60 [facility] Comment on above: Non- GFR Calc Thyroid Stimulating Hormone (TSH) 4.79 uIU/mL 0.358-3.74 [facility] Platelets bldOrdered By: Tatiana Bush on 01-31-2022 Platelets (Bld) [#/Vol] 258 10*3/uL 150-450 [facility] Serum or plasma albumin geoffrey urement (mass/volume)Ordered By: Alfa Bush on 01-31-2022 Albumin [Mass/Vol] 3.5 g/dL 3.2-5.0 [facility] Serum or plasma calcium geoffrey urement (mass/volume)Ordered By: Alfa Bush on 01-31-2022 Calcium [Mass/Vol] 9.4 mg/dL 8.5-10.1 [facility] Serum or plasma cholesterol in HDL measurement (mass/volume)Ordered By: Alfa Bush on 01-31-2022 Cholesterol in HDL [Mass/Vol] 74 mg/dL >40 [facility] Comment on above: The drugs N-Acetylcy steine and Metamizole may falsely depress this assay. Reference Range HDL <40 mg/dL Low HDL Cholesterol HDL >or= 60 mg/dL High HDL Cholesterol Serum or plasma cholesterol in VLDL measurement (mass/volume)Ordered By: Alfa Bush on 01-31-2022 Cholesterol in VLDL [Mass/Vol] 22 mg/dL 5-40 [facility] Serum or plasma creatinine m easurement (mass/volume)Ordered By: Alfa Bush on 01-31-2022 Creatinine [Mass/Vol] 1.75 mg/dL 0.55-1.02 [facility] Comment on above: The validity of the calculated GFR & GFRAA in patients over 70 years has not been determined. Clinical correlation is essential. Serum or plasma low density lipoprotein (LDL) cholesterol measurement (mass/volume)Ordered By: Alfa Buhs on 01-31-2022 Cholesterol in LDL [Mass/Vol] 94 mg/dL 0-130 [facility] Serum or plasma urea nitroge n measurement (mass/volume)Ordered By: Alfa Bush on 01-31-2022 Urea nitrogen [Mass/Vol] 34 mg/dL 7-18 [facility] Thin prep Papanicolaou smear with manual screeningOrdered By: Alfa Bush on 01-31-2022 Thin prep Papanicolaou smear with manual screening 26 U/L 15-37 [facility] Thin prep Papanicolaou smear with manual screening 3 5-15 [facility] INR in Blood by Coagulation assayOrdered By: Dr. Martines on 01-17-2022 INR Coag (Bld) [Relative time] 2.7 {INR} [facility] Laboratory - CoagulationOrde red By: Dr. Martines on 01-17-2022 PT Coag (PPP) [Time] 28.3 s 11.7-14.9 [facility] INR in Blood by Coagulation assayOrdered By: Dr. Martines on 12-20-2021 INR Coag (Bld) [Relative time] 2.9 {INR} [facility] Laboratory - CoagulationOrde red By: Dr. Martines on 12-20-2021 PT Coag (PPP) [Time] 29.7 s 11.7-14.9 [facility] INR in Blood by Coagulation assayon 11-26-2021 INR Coag (Bld) [Relative time] 2.8 {INR} [facility] Work Phone: Laboratory - Coagulationon 1 PT Coag (PPP) [Time] 29.2 s 11.7-14.9 [facility] Work Phone: INR in Blood by Coagulation assayon 11-05-2021 INR Coag (Bld) [Relative time] 3.0 {INR} [facility] Work Phone: Laboratory - Coagulationon 0 11-05-2021 PT Coag (PPP) [Time] 30.6 s 11.7-14.9 [facility] Work Phone: INR in Blood by Coagulation assayon 10-08-2021 INR Coag (Bld) [Relative time] 3.4 {INR} [facility] Work Phone: Laboratory - Coagulationon 0 10-08-2021 PT Coag (PPP) [Time] 33.7 s 11.7-14.9 [facility] Work Phone: INR in Blood by Coagulation assayon 09-10-2021 INR Coag (Bld) [Relative time] 3.7 {INR} [facility] Work Phone: Laboratory - Coagulationon 0 09-10-2021 PT Coag (PPP) [Time] 36.2 s 11.7-14.9 [facility] Work Phone: INR in Blood by Coagulation assayon 08-18-2021 INR Coag (Bld) [Relative time] 4.8 {INR} [facility] Work Phone: Comment on above: CRITICAL VALUE VERIF IED. [facility]08/18/21 1350 [address].RESULTS READ BACK BY SAME . Laboratory - Coagulationon 0 08-18-2021 PT Coag (PPP) [Time] 44.4 s 11.7-14.9 [facility] Work Phone: No Panel Informationon 08-18 INR International Normalized Ratio 4.5 [facility] Work Phone: Basophil percentageon 2021 Bilirubin [Mass/Vol] 0.60 mg/dL 0.20-1.00 [facility] Work Phone: Comment on above: For patients on eltr ombopag therapy, use of [place] TBIL is not recommended. Cholesterol [Mass/Vol] 197 mg/dL <[address] [facility] Work Phone: Comment on above: <200 mg/dL Desirable 200-240 mg/dL Borderline >240 mg/dL High Risk Protein [Mass/Vol] 6.8 g/dL 6.4-8.2 [facility] Work Phone: Triglyceride [Mass/Vol] 95 mg/dL <199 [facility] Work Phone: [phone] Comment on above: The drugs N-Acetylcy steine and Metamizole may falsely depress this assay.Serum Triglycerides Reference Interval Normal <150 mg/dL Borderline high 150 - 199 mg/dL High 200 - 499 mg/dL Very High > or = 500 mg/dL Direct bilirubinon Bilirubin.direct [Mass/Vol] 0.19 mg/dL 0.00-0.30 [facility] Work Phone: Laboratory - Chemistry and C hemistry - challengeon 07-21-2021 ALP [Catalytic activity/Vol] 111 U/L 45-117 [facility] Work Phone: [phone] ALT [Catalytic activity/Vol] 33 U/L 13-56 [facility] Work Phone: [phone] Globulin (S) [Mass/Vol] 3.5 g/dL 2.2-4.2 [facility] Work Phone: [phone] Serum or plasma albumin geoffrey urement (mass/volume)on 07-21-2021 Albumin [Mass/Vol] 3.3 g/dL 3.2-5.0 [facility] Work Phone: Serum or plasma cholesterol in HDL measurement (mass/volume)on 07-21-2021 Cholesterol in HDL [Mass/Vol] 75 mg/dL >40 [facility] Work Phone: Comment on above: The drugs N-Acetylcy steine and Metamizole may falsely depress this assay. Reference Range HDL <40 mg/dL Low HDL Cholesterol HDL >or= 60 mg/dL High HDL Cholesterol Serum or plasma cholesterol in VLDL measurement (mass/volume)on 07-21-2021 Cholesterol in VLDL [Mass/Vol] 19 mg/dL 5-40 [facility] Work Phone: Serum or plasma low density lipoprotein (LDL) cholesterol measurement (mass/volume)on 07-21-2021 Cholesterol in LDL [Mass/Vol] 103 mg/dL 0-130 [facility] Work Phone: [phone] Thin prep Papanicolaou smear with manual screeningon 07-21-2021 Thin prep Papanicolaou smear with manual screening 32 U/L 15-37 [facility] Work Phone: [phone] Laboratory - Chemistry and C hemistry - challengeon 06-28-2021 Free T4 [Mass/Vol] 1.33 ng/dL 0.76-1.46 [facility] Work Phone: [phone] No Panel Informationon 06-28 Thyroid Stimulating Hormone (TSH) 4.68 uIU/mL 0.358-3.74 [facility] Work Phone: INR in Blood by Coagulation assayon 06-23-2021 INR Coag (Bld) [Relative time] 3.0 {INR} [facility] Work Phone: Laboratory - Coagulationon 0 06-23-2021 PT Coag (PPP) [Time] 30.7 s 11.7-14.9 [facility] Work Phone: INR in Blood by Coagulation assayon 05-25-2021 INR Coag (Bld) [Relative time] 2.9 {INR} [facility] Work Phone: Laboratory - Coagulationon 0 05-25-2021 PT Coag (PPP) [Time] 29.5 s 11.7-14.9 [facility] Work Phone: INR in Blood by Coagulation assayon 05-04-2021 INR Coag (Bld) [Relative time] 3.3 {INR} [facility] Work Phone: Laboratory - Coagulationon 0 05-04-2021 PT Coag (PPP) [Time] 32.4 s 11.7-14.9 [facility] Work Phone: INR in Blood by Coagulation assayon 04-06-2021 INR Coag (Bld) [Relative time] 2.4 {INR} [facility] Work Phone: Laboratory - Coagulationon 0 04-06-2021 PT Coag (PPP) [Time] 25.6 s 11.7-14.9 [facility] Work Phone: INR in Blood by Coagulation assayon 03-17-2021 INR Coag (Bld) [Relative time] 3.1 {INR} [facility] Work Phone: Laboratory - Coagulationon 0 03-17-2021 PT Coag (PPP) [Time] 30.9 s 11.7-14.9 [facility] Work Phone: INR in Blood by Coagulation assayon 02-09-2021 INR Coag (Bld) [Relative time] 3.4 {INR} [facility] Work Phone: Laboratory - Coagulationon 1 04-12-2020 PT Coag (PPP) [Time] 33.8 s 11.7-14.9 [facility] Work Phone: Lab Report: Prothrombin Time w/INRon 04-17-2017 Coagulation tissue factor induced in platelet poor plasma 33.7 s High 11.7-14.9 [facility] Work Phone: [phone] INR in blood by coagulation 3.5 {INR} Critically high [facility] Work Phone: [phone] Lab Report: Prothrombin Time w/INRon 04-07-2017 Coagulation tissue factor induced in platelet poor plasma 29.9 s High 11.7-14.9 [facility] Work Phone: [phone] INR in blood by coagulation 3.0 {INR} Invalid Interpretation Code [facility] Work Phone: [phone] Lab Report: Prothrombin Time w/INRon 03-31-2017 Coagulation tissue factor induced in platelet poor plasma 31.7 s High 11.7-14.9 [facility] Work Phone: [phone] INR in blood by coagulation 3.2 {INR} Invalid Interpretation Code [facility] Work Phone: [phone] Lab Report: Prothrombin Time w/INRon 03-14-2017 Coagulation tissue factor induced in platelet poor plasma 33.7 s High 11.7-14.9 [facility] Work Phone: [phone] INR in blood by coagulation 3.5 {INR} Critically high [facility] Work Phone: [phone] Lab Report: Prothrombin Time w/INRon 02-14-2017 Coagulation tissue factor induced in platelet poor plasma 31.5 s High 11.7-14.9 [facility] Work Phone: [phone] INR in blood by coagulation 3.2 {INR} Invalid Interpretation Code [facility] Work Phone: [phone] Coumadin Management: Dejuan schneider Calcon 01-16-2017 INR Coag RelTime (Bld) [facility] lab Invalid Interpretation Code [facility] Work Phone: [phone] INR Coag RelTime (Bld) 2.5 to 3.5 Invalid Interpretation Code [facility] Work Phone: [phone] INR Coag RelTime (PPP) 3.4 {INR} Invalid Interpretation Code [facility] Work Phone: [phone] Prothrombin time (PT) Coag time (PPP) 32.9 s Invalid Interpretation Code [facility] Work Phone: [phone] Lab Report: Prothrombin Time w/INRon 01-16-2017 Prothrombin time (PT) Coag time (PPP) 32.9 s High 11.7-14.9 [facility] Work Phone: [phone] Coumadin Management: Warfari n Calcon 12-12-2016 INR Coag RelTime (Bld) 2.5 to 3.5 Invalid Interpretation Code [facility] Work Phone: [phone] INR Coag RelTime (Bld) Hospital lab Invalid Interpretation Code [facility] [employer] Work Phone: [phone] INR Coag RelTime (PPP) 2.8 {INR} Invalid Interpretation Code [facility] [employer] Work Phone: [phone] international normalized ratio (INR) range 2.5 to 3.5 Invalid Interpretation Code [facility] Work Phone: [phone] Prothrombin time (PT) Coag time (PPP) 28.2 s Invalid Interpretation Code [facility] [employer] Work Phone: [phone] Lab Report: Prothrombin Time w/INRon 12-12-2016 Prothrombin time (PT) Coag time (PPP) 28.2 s High 11.7-14.9 [facility] [employer] Work Phone: [phone] Office Visiton 12-12-2016 Dietary management education, guidance, and counseling (procedure) yes Invalid Interpretation Code [facility] Work Phone: [phone] Documentation of current medications (procedure) Done Invalid Interpretation Code [facility] [employer] Work Phone: [phone] Fall risk assessment No Invalid Interpretation Code [facility] Work Phone: [phone] Protein mass conc Done Invalid Interpretation Code [facility] Work Phone: Replaced Document: Dorota Whitney 12-12-2016 EKG QRS axis -46 deg Invalid Interpretation Code [employer] Phone: [phone] electrocardiogram interpretation Sinus Rhythm -First degree A-V block Mona = 242-Left axis -anterior fascicular block. -Anteroseptal infarct -age undetermined. -Nonspecific ST depression -Nondiagnostic. ABNORMAL Invalid Interpretation Code [facility] Work Phone: [phone] GE use only - for [employer] import when terms are not otherwise specified 477 ms Invalid Interpretation Code [facility] Work Phone: [phone] Interpretation Sinus Rhythm -First degree A-V block Mona = 242-Left axis -anterior fascicular block. -Anteroseptal infarct -age undetermined. -Nonspecific ST depression -Nondiagnostic. ABNORMAL Invalid Interpretation Code [employer] Phone: [phone] P [place] 90 deg Invalid Interpretation Code [employer] Phone: [phone] P wave axis, electrocardiogram 90 deg Invalid Interpretation Code [facility] Work Phone: [phone] [place] Interval 242 ms Invalid Interpretation Code [employer] Phone: [phone] [place] interval, electrocardiogram 242 ms Invalid Interpretation Code [employer] Phone: [phone] Pulse (Heart Rate) 79 /min Invalid Interpretation Code [employer] Phone: [phone] QRS axis, electrocardiogram -46 deg Invalid Interpretation Code [employer] Phone: [phone] QRS Duration 124 ms Invalid Interpretation Code [employer] Phone: [phone] QRS duration, electrocardiogram 124 ms Invalid Interpretation Code [employer] Phone: [phone] QT Interval new path ms Invalid Interpretation Code [employer] Phone: [phone] QT interval, electrocardiogram new path ms Invalid Interpretation Code [employer] Phone: [phone] QTc Rowe 477 ms Invalid Interpretation Code [employer] Phone: [phone] T [place] 16 deg Invalid Interpretation Code [employer] Phone: [phone] T wave axis, electrocardiogram 16 deg Invalid Interpretation Code [employer] Phone: Chart Maintenanceon 11-18-19 17 Left ventricular Ejection fraction 60 % Invalid Interpretation Code [facility] Work Phone: [phone] Coumadin Management: Warnerari jennie Calcon 11-11-2016 Coagulation tissue factor induced in platelet poor plasma 0 s Invalid Interpretation Code [facility] Work Phone: [phone] INR Coag RelTime (PPP) 3.0 {INR} [facility] Work Phone: [phone] INR in blood by coagulation 2.5 to 3.5 Invalid Interpretation Code [facility] Work Phone: [phone] INR in blood by coagulation Hospital lab Invalid Interpretation Code [facility] Work Phone: [phone] INR in blood by coagulation 3.0 {INR} Invalid Interpretation Code [facility] Work Phone: [phone] international normalized ratio (INR) range 2.5 to 3.5 [facility] Work Phone: [phone] Lab Report: Lipid Profileon 11-11-2016 Cholesterol 218 mg/dL High 200 [facility] Work Phone: [phone] HDL Cholesterol 58 mg/dL Invalid Interpretation Code [facility] Work Phone: [phone] LDL Cholesterol 134 mg/dL High 0-130 [facility] Work Phone: [phone] Triglyceride 130 mg/dL Invalid Interpretation Code [facility] Work Phone: [phone] very low density lipoproteins 26 mg/dL Invalid Interpretation Code 5-40 [facility] Work Phone: [phone] Lab Report: Liver Profileon 11-11-2016 Globulin mass conc (S) 3.6 g/dL High 2.3-3.5 [facility] Work Phone: [phone] Lab Report: Prothrombin Time w/INRon 11-11-2016 Coagulation tissue factor induced in platelet poor plasma 30.2 s High 11.7-14.9 [facility] Work Phone: [phone] Replaced Document: Liver Pro fileon 11-11-2016 Alanine aminotransferase (ALT) 30 U/L Invalid Interpretation Code 12-78 [facility] Work Phone: [phone] Albumin 3.3 g/dL Low 3.4-5.0 [facility] Work Phone: [phone] Alkaline phosphatase (ALP) 108 U/L Invalid Interpretation Code 45-117 [facility] Work Phone: [phone] ALP enzyme act/vol (Bld) 108 U/L Invalid Interpretation Code 45-117 [facility] Work Phone: [phone] Aspartate aminotransferase (AST) 30 U/L Invalid Interpretation Code 15-37 [facility] Work Phone: [phone] Bilirubin (direct) 0.12 mg/dL Invalid Interpretation Code 0.00-0.30 [facility] Work Phone: [phone] Bilirubin (total) 0.50 mg/dL Invalid Interpretation Code 0.20-1.00 [facility] Work Phone: [phone] Globulin 3.6 g/dL High 2.3-3.5 [facility] Work Phone: [phone] Protein 6.9 g/dL Invalid Interpretation Code 6.4-8.2 [facility] Work Phone: [phone] Coumadin Management: Dejuan schneider Calcon 10-25-2016 Coagulation tissue factor induced in platelet poor plasma 30.5 s Invalid Interpretation Code [facility] Work Phone: [phone] INR in blood by coagulation Hospital lab Invalid Interpretation Code [facility] Work Phone: [phone] INR in blood by coagulation 3.1 {INR} Invalid Interpretation Code [facility] Work Phone: [phone] INR in blood by coagulation 2.5 to 3.5 Invalid Interpretation Code [facility] Work Phone: [phone]) Lab Report: Prothrombin Time w/INRon 10-25-2016 Coagulation tissue factor induced in platelet poor plasma 30.5 s High 11.7-14.9 [facility] Work Phone: [phone] Coumadin Management: Warnerari n Calcon 09-27-2016 INR Coag RelTime (Bld) Hospital lab [facility] Work Phone: [phone] INR Coag RelTime (PPP) 3.5 {INR} [facility] Work Phone: [phone] international normalized ratio (INR) range 2.5 to 3.5 [facility] Work Phone: [phone] Prothrombin time (PT) Coag time (PPP) 33.5 s [facility] Work Phone: [phone]) Lab Report: Prothrombin Time w/INRon 09-27-2016 Prothrombin time (PT) Coag time (PPP) 33.5 s High 11.7-14.9 [facility] Work Phone: [phone] Coumadin Management: Dejuan schneider Calcon 08-29-2016 INR Coag RelTime (Bld) Hospital lab [facility] Work Phone: [phone] INR Coag RelTime (PPP) 2.5 {INR} [facility] Work Phone: [phone] international normalized ratio (INR) range 2.5 to 3.5 [facility] Work Phone: [phone] Prothrombin time (PT) Coag time (PPP) 26.3 s [facility] Work Phone: [phone] Lab Report: Prothrombin Time w/INRon 08-29-2016 Prothrombin time (PT) Coag time (PPP) 26.3 s High 11.7-14.9 [facility] Work Phone: [phone] Coumadin Management: Dejuan schneider Calcon 08-02-2016 INR Coag RelTime (Bld) Hospital lab [facility] Work Phone: [phone] INR Coag RelTime (PPP) 2.7 {INR} [facility] Work Phone: [phone] international normalized ratio (INR) range 2.5 to 3.5 [facility] Work Phone: [phone] Prothrombin time (PT) Coag time (PPP) 27.4 s [facility] Work Phone: [phone] Lab Report: Prothrombin Time w/INRon 08-02-2016 Prothrombin time (PT) Coag time (PPP) 27.4 s High 11.7-14.9 [facility] Work Phone: [phone] Coumadin Management: Dejuan schneider Calcon 07-11-2016 Coagulation tissue factor induced in platelet poor plasma 26.8 s Invalid Interpretation Code [facility] Work Phone: [phone] INR in blood by coagulation Hospital lab Invalid Interpretation Code [facility] Work Phone: [phone] INR in blood by coagulation 2.6 {INR} Invalid Interpretation Code [facility] Work Phone: [phone] INR in blood by coagulation 2.5 to 3.5 Invalid Interpretation Code [facility] Work Phone: [phone] Lab Report: Prothrombin Time w/INRon 07-11-2016 Coagulation tissue factor induced in platelet poor plasma 26.8 s High 11.7-14.9 [facility] Work Phone: [phone] Coumadin Management: Warfari n Calcon 06-20-2016 Coagulation tissue factor induced in platelet poor plasma 27.5 s Invalid Interpretation Code [facility] Work Phone: [phone] INR in blood by coagulation Hospital lab Invalid Interpretation Code [facility] Work Phone: [phone] INR in blood by coagulation 2.7 {INR} Invalid Interpretation Code [facility] Work Phone: [phone] INR in blood by coagulation 2.5 to 3.5 Invalid Interpretation Code [facility] Work Phone: [phone] Lab Report: Prothrombin Time w/INRon 06-20-2016 Coagulation tissue factor induced in platelet poor plasma 27.5 s High 11.7-14.9 [facility] Work Phone: [phone] Replaced Document: Dorota Chaves CG Observationson 06-02-2016 EKG QRS axis -31 deg [facility] Work Phone: [phone] electrocardiogram interpretation Marked atrial Bradycardia P:QRS - 1:1, Abnormal P axis, H Rate 48-Anteroseptal infarct -age undetermined. ABNORMAL Invalid Interpretation Code [facility] Work Phone: [phone] GE use only - for [employer] import when terms are not otherwise specified 489 ms Invalid Interpretation Code [facility] Work Phone: [phone] Interpretation Marked atrial Bradycardia P:QRS - 1:1, Abnormal P axis, H Rate 48-Anteroseptal infarct -age undetermined. ABNORMAL [place] [employer] [facility] Work Phone: [phone] P [place] -45 deg [facility] Work Phone: [phone] P wave axis, electrocardiogram -45 deg Invalid Interpretation Code [facility] Work Phone: [phone] [place] Interval 146 ms [facility] Work Phone: [phone] [place] interval, electrocardiogram 146 ms Invalid Interpretation Code [facility] Work Phone: [phone] Pulse (Heart Rate) 48 /min Invalid Interpretation Code [facility] Work Phone: [phone] QRS axis, electrocardiogram -31 deg Invalid Interpretation Code [facility] Work Phone: [phone] QRS Duration 118 ms [facility] Work Phone: [phone] QRS duration, electrocardiogram 118 ms Invalid Interpretation Code [facility] Work Phone: [phone] QT Interval new path ms [facility] Work Phone: [phone] QT interval, electrocardiogram new path ms Invalid Interpretation Code [facility] Work Phone: [phone] QTc Rowe 489 ms [facility] Work Phone: [phone] T [place] -1 deg [facility] Work Phone: [phone] T wave axis, electrocardiogram -1 deg Invalid Interpretation Code [facility] Work Phone: [phone] Lab Report: Prothrombin Time [facility] 05-26-2016 Coagulation tissue factor induced in platelet poor plasma 42.9 s High 11.9-14.4 [facility] Work Phone: [phone] Lab Report: Basic Metabolic Profile (BMP)on 05-20-2016 Anion gap 9 mmol/L Invalid Interpretation Code 5-15 [facility] Work Phone: [phone] Anion gap 4 molar conc 9 Invalid Interpretation Code 5-15 [facility] Work Phone: [phone] Anion gap molar conc 9 mmol/L 5-[address] [facility] Work Phone: [phone] BUN/Creatinine Ratio 20.0 RATIO Invalid Interpretation Code 10-20 [facility] Work Phone: [phone] Calcium 8.6 mg/dL Invalid Interpretation Code 8.5-10.1 [facility] Work Phone: [phone] Chloride 105 mmol/L Invalid Interpretation Code 98-107 [facility] Work Phone: [phone] CO2 25.0 mmol/L Invalid Interpretation Code 21.0-32.0 [facility] Work Phone: [phone] CO2 ppres (BldV) 25.0 mmol/L Invalid Interpretation Code 21.0-32.0 [facility] Work Phone: [phone] Creatinine 1.40 mg/dL High 0.55-1.02 [facility] Work Phone: [phone] eGFR (non-black) 39 mL/min/{1.73_m2} Low >60 [facility] Work Phone: [phone] eGFR (non-black) 47 mL/min/{1.73_m2} Low >60 [facility] Work Phone: [phone] EST GFR - AA 47 mL/min Low >60 [facility] Work Phone: [phone] Glucose 75 mg/dL Invalid Interpretation Code 70-110 [facility] Work Phone: [phone] Glucose mass conc 75 mg/dL Invalid Interpretation Code 70-110 [facility] Work Phone: [phone] Potassium 4.1 mmol/L Invalid Interpretation Code 3.5-5.1 [employer] Phone: [phone] Sodium 139 mmol/L Invalid Interpretation Code 136-145 [facility] Phone: [phone] Urea nitrogen 28 mg/dL High 7-18 [facility] Phone: [phone] Office Visiton 05-02-2016 Documentation of current medications (procedure) Done Invalid Interpretation Code [facility] Work Phone: [phone] Fall risk assessment Yes Invalid Interpretation Code [employer] Phone: [phone] Protein mass conc Done [employer] Phone: [phone] Lab Report: Lipid Profileon 01-13-2016 Cholesterol 197 mg/dL Invalid Interpretation Code 200 [employer] Phone: [phone] HDL Cholesterol 40 mg/dL Invalid Interpretation Code [employer] Phone: [phone] LDL Cholesterol 124 mg/dL Invalid Interpretation Code 0-130 [employer] Phone: [phone] Triglyceride 165 mg/dL Invalid Interpretation Code [facility] Work Phone: [phone] very low density lipoproteins 33 mg/dL Invalid Interpretation Code 5-40 [facility] Work Phone: [phone]) Lab Report: Liver Profileon 01-13-2016 Alanine aminotransferase (ALT) 15 U/L Invalid Interpretation Code 12-78 [facility] Work Phone: [phone] Albumin 2.9 g/dL Low 3.4-5.0 [facility] Work Phone: [phone] Alkaline phosphatase (ALP) 164 U/L High 45-117 [facility] Work Phone: [phone] ALP enzyme act/vol (Bld) 164 U/L High 45-117 [facility] Work Phone: [phone] Aspartate aminotransferase (AST) 17 U/L Invalid Interpretation Code 15-37 [facility] Work Phone: [phone] Bilirubin (direct) 0.12 mg/dL Invalid Interpretation Code 0.00-0.30 [facility] Work Phone: [phone] Bilirubin (total) 0.40 mg/dL Invalid Interpretation Code 0.20-1.00 [facility] Work Phone: [phone] Globulin 4.2 g/dL High 2.3-3.5 [facility] Work Phone: [phone] Globulin mass conc (S) 4.2 g/dL High 2.3-3.5 [facility] Work Phone: [phone] Protein 7.1 g/dL Invalid Interpretation Code 6.4-8.2 [facility] Work Phone: [phone] Office Visiton 08-17-2015 Tobacco smoking status NHIS Tobacco smoking status IAIS Invalid Interpretation Code [facility] Work Phone: [phone] Tobacco smoking status NHIS Never smoker Invalid Interpretation Code [facility] Work Phone: [phone] Tobacco use [facility] Never smoker Invalid Interpretation Code [facility] Work Phone: [phone] Clinical Lists 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: 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 08-11-2015 Left ventricular Ejection fraction 65 % Invalid Interpretation Code [facility] Work Phone: [phone] Lab Report: T4 Total, Thyrox inon 06-05-2015 Thyroxine (T4) 13.0 ug/dL Invalid Interpretation Code 4.8-13.9 [facility] Work Phone: [phone]) Lab Report: Thyroid Stim Hor rolanda (TSH)on 06-05-2015 Thyroid stimulating hormone (TSH) 4.86 u[iU]/mL High 0.358-3.74 [facility] Work Phone: [phone] Office Visiton 02-09-2015 General cardiovascular disease 10Y risk [#] Pray.D'Agostino 5 % Invalid Interpretation Code [facility] Work Phone: [phone] Lab Report: Blood Gas Specim en Typeon 12-26-2014 arterial blood gas MARISEL Invalid Interpretation Code [facility] Work Phone: [phone] BLD GAS TYPE MARISEL Invalid Interpretation Code [facility] Work Phone: [phone]) Lab Report: HH, Hemoglobin A ND Hematocriton 12-26-2014 Hematocrit (HCT) 33.9 % Low 37-47 [facility] Work Phone: [phone] Hematocrit Volume Fraction (Bld) 33.9 % Low 37-47 [facility] Work Phone: [phone] Hemoglobin (HGB) 11.1 g/dL Low 12.0-15.0 [facility] Work Phone: [phone]) Lab Report: PO2 I-Johanne Oxygen in arterial blood 67 mm[Hg] Low 75-100 [facility] Work Phone: [phone] Oxygen ppres (Bld) 67 mm[Hg] Low 75-100 [facility] Work Phone: [phone]) Lab Report: SO2 ISTATon 11-0 O2 saturation 93 % Low 95-99 [facility] Work Phone: [phone] SaO2% mass fraction (BldA) 93 % Low 95-99 [facility] Work Phone: [phone]) Lab Report: VBG PO2 I-Johanne 12-26-2014 oxygen, partial pressure, venous blood 37 mm[Hg] Invalid Interpretation Code 25-40 [facility] Work Phone: [phone] VBG PO2 I-STAT 37 mm[Hg] Invalid Interpretation Code 25-40 [facility] Work Phone: [phone] Lab Report: VBG SO2 ISTATon 12-26-2014 saturation venous oxygen 70 % Invalid Interpretation Code 50-70 [facility] Work Phone: [phone] VBG SO2 ISTAT 70 % Invalid Interpretation Code 50-70 [facility] Work Phone: [phone] Lab Report: CBC-Complete Blo od Cnt No Diffon 12-16-2014 Erythrocyte distribution width Auto Ratio (RBC) 54.0 fL High 35.1-43.9 [facility] Work Phone: [phone] Erythrocyte distribution width Ratio (RBC) 15.0 % High 11.6-14.6 [facility] Work Phone: [phone] Erythrocyte distribution width Ratio (RBC) 54.0 fL High 35.1-43.9 [facility] Work Phone: [phone] Erythrocytes (RBC) 4.02 10*6/uL Low 4.2-5.[address] [facility] Work Phone: [phone] MCH 32.1 pg High 27.0-32.0 [facility] Work Phone: [phone] MCH Entitic mass (RBC) 32.1 pg High 27.0-32.0 [facility] Work Phone: [phone] MCHC 32.6 G/GL Invalid Interpretation Code 32-36 [facility] Work Phone: [phone] MCHC mass conc (RBC) 32.6 G/GL 32-[address] [facility] Work Phone: [phone] MCV 98.5 fL Invalid Interpretation Code 81-99 [facility] Work Phone: [phone] MCV Entitic volume (RBC) 98.5 fL 81-99 [facility] Work Phone: [phone] Platelet mean volume Entitic volume (Bld) 9.7 fL 6.2-12.0 [facility] Work Phone: [phone] Platelets 232 10*3/mm3 Invalid Interpretation Code 150-450 [facility] Work Phone: [phone] Platelets #/vol (Bld) 232 10*3/mm3 150-450 [facility] Work Phone: [phone] PMV by Fredis 9.7 fL Invalid Interpretation Code 6.2-12.0 [facility] Work Phone: [phone] RBC #/vol (Bld) 4.02 10*6/uL Low 4.2-5.4 [facility] Work Phone: [phone] RDW SD 54.0 fL High 35.1-43.9 [facility] Work Phone: [phone] RDW-CA 15.0 % High 11.6-14.6 [facility] Work Phone: [phone] red blood cell distribution width, size density 54.0 fL High 35.1-43.9 [facility] Work Phone: [phone] WBC #/vol (Bld) 6.9 10*3/uL 4.4-11.0 [facility] Work Phone: [phone] WBC (Leukocytes) 6.9 10*3/uL Invalid Interpretation Code 4.4-11.0 [facility] Work Phone: [phone] Lab Report: Partial Thrombop last Timeon 12-16-2014 aPTT 43.7 s High 24.1-36.2 [facility] Work Phone: [phone] Office Visiton 06-02-2014 Dietary management education, guidance, and counseling (procedure) yes Invalid Interpretation Code [facility] Work Phone: [phone] Office Visiton 01-27-2014 cardiac risk group B Invalid Interpretation Code [facility] Work Phone: [phone] Replaced Document: Janaemark E CG Observationson 01-23-2012 Pulse (Heart Rate) 430 ms Invalid Interpretation Code [facility] Work Phone: [phone] Vital Signs Date Time Vital Sign Value Performing Clinician Facility 08-26-2024 11:09-0400 Body height 160.02 cm Mireille Garnica MD Work Phone: [facility] 08-26-2024 11:09-0400 Body mass index (BMI) [Ratio] 23 kg/m2 Mireille Garnica MD Work Phone: [facility] 08-26-2024 11:09-0400 Body weight 58.96 kg Mireille Garnica MD Work Phone: [facility] 08-26-2024 11:09-0400 Diastolic blood pressure 67 mm[Hg] Mireille Garnica MD Work Phone: [facility] 08-26-2024 11:09-0400 Heart rate 91 /min Mireille Garnica MD Work Phone: [facility] 08-26-2024 11:09-0400 Respiratory rate 16 /min Mireille Garnica MD Work Phone: [facility] 08-26-2024 11:09-0400 Systolic blood pressure 108 mm[Hg] Mireille Garnica MD Work Phone: [facility] 07-20-2024 22:10-0400 Body mass index (BMI) [Ratio] 27.6 kg/m2 Mireille Garnica MD Work Phone: [facility] 07-02-2024 04:01-0400 Body temperature 97.34 [degF] EMMANUEL DE LA CRUZ MD [facility] 07-02-2024 04:01-0400 Diastolic Blood Pressure Non-Invasive 62 mm[Hg] EMMANUEL DE LA CRUZ MD [facility] 07-02-2024 04:01-0400 Heart rate 70 /min EMMANUEL DE LA CRUZ MD [facility] 07-02-2024 04:01-0400 Systolic Blood Pressure Non-Invasive 123 mm[Hg] EMMANUEL DE LA CRUZ MD [facility] 07-02-2024 02:11-0400 Heart rate 55 /min EMMANUEL DE LA CRUZ MD [facility] 07-02-2024 02:11-0400 Respiratory rate 12 /min EMMANUEL DE LA CRUZ MD [address] [place] [id number] 07-01-2024 23:00-0400 Heart rate 64 /min EMMANUEL DE LA CRUZ MD [address] [place] [address] 07-01-2024 21:46-0400 Respiratory rate 16 /min EMMANUEL DE LA CRUZ MD [address] [place] [address] 07-01-2024 19:41-0400 Body temperature 97.7 [degF] EMMANUEL DE LA CRUZ MD [address] [place] [address] 07-01-2024 19:41-0400 Diastolic Blood Pressure Non-Invasive 52 mm[Hg] EMMANUEL DE LA CRUZ MD [address] [place] [address] 07-01-2024 19:41-0400 Heart rate 60 /min EMMANUEL DE LA CRUZ MD [address] [place] [address] 07-01-2024 19:41-0400 Reason For Taking VItal Signs EMMANUEL DE LA CRUZ MD [address] [place] [address] 07-01-2024 19:41-0400 Systolic Blood Pressure Non-Invasive 119 mm[Hg] EMMANUEL DE LA CRUZ MD [address] [place] [address] 07-01-2024 15:40-0400 Diastolic Blood Pressure Non-Invasive 51 mm[Hg] EMMANUEL DE LA CRUZ MD [address] [place] [address] 07-01-2024 15:40-0400 Systolic Blood Pressure Non-Invasive 127 mm[Hg] EMMANUEL DE LA CRUZ MD [address] [place] [address] 07-01-2024 14:50-0400 Body temperature 96.62 [degF] EMMANUEL DE LA CRUZ MD [address] [place] [address] 07-01-2024 14:40-0400 Respiratory Rate - Anes 11 br/min EMMANUEL DE LA CRUZ MD [address] [place] [address] 07-01-2024 14:35-0400 Body temperature 96.73 [degF] EMMANUEL DE LA CRUZ MD [address] [place] [address] 07-01-2024 14:35-0400 Respiratory Rate - Anes 12 br/min EMMANUEL DE LA CRUZ MD [address] [place] [address] 07-01-2024 14:30-0400 Body temperature 96.75 [degF] EMMANUEL DE LA CRUZ MD [address] [place] [address] 07-01-2024 14:30-0400 Respiratory Rate - Anes 12 br/min EMMANUEL DE LA CRUZ MD [address] [place] [address] 07-01-2024 14:25-0400 Body temperature 96.66 [degF] EMMANUEL DE LA CRUZ MD [address] [place] [address] 07-01-2024 11:05-0400 Body height 157.5 cm EMMANUEL DE LA CRUZ MD [address] [place] [address] 07-01-2024 11:05-0400 Body temperature 97.88 [degF] EMMANUEL DE LA CRUZ MD [address] [place] [address] 07-01-2024 11:05-0400 Body weight 61.6 kg EMMANUEL DE LA CRUZ MD [address] [place] [address] 07-01-2024 11:05-0400 Heart rate 108 /min EMMANUEL DE LA CRUZ MD [address] [place] [address] 06-28-2024 06:00-0400 Body mass index (BMI) [Ratio] 24.4 kg/m2 Mireille Garnica MD Work Phone: [facility] 06-28-2024 06:00-0400 Body weight 62.59 kg Mireille Garnica MD Work Phone: [facility] 06-28-2024 06:00-0400 Diastolic blood pressure 76 mm[Hg] Mireille Garnica MD Work Phone: [facility] 06-28-2024 06:00-0400 Heart rate 89 /min Mireille Garnica MD Work Phone: [facility] 06-28-2024 06:00-0400 Respiratory rate 18 /min Mireille Garnica MD Work Phone: [facility] 06-28-2024 06:00-0400 SaO2% (BldA) [Mass fraction] 96 % Mireille Garnica MD Work Phone: [facility] 06-28-2024 06:00-0400 Systolic blood pressure 114 mm[Hg] Mireille Garnica MD Work Phone: [facility] 06-19-2024 21:34-0400 Body mass index (BMI) [Ratio] 27.6 kg/m2 Mireille Garnica MD Work Phone: [facility] 06-17-2024 09:17-0400 Blood Pressure Cuff Size EMMANUEL DE LA CRUZ MD [address] [place] [address] 06-17-2024 09:17-0400 Blood Pressure Location EMMANUEL DE LA CRUZ MD [address] [place] [address] 06-17-2024 09:17-0400 Blood Pressure Method EMMANUEL DE LA CRUZ MD [address] [place] [address] 06-17-2024 09:17-0400 Body height 156.2 cm EMMANUEL DE LA CRUZ MD [address] [place] [address] 06-17-2024 09:17-0400 Body temperature 97.88 [degF] EMMANUEL DE LA CRUZ MD [address] [place] [address] 06-17-2024 09:17-0400 Body weight 63.7 kg EMMANUEL DE LA CRUZ MD [address] [place] [address] 06-17-2024 09:17-0400 Body weight 26.11 kg/m2 EMMANUEL DE LA CRUZ MD [address] [place] [address] 06-17-2024 09:17-0400 Diastolic Blood Pressure Non-Invasive 64 mm[Hg] EMMANUEL DE LA CRUZ MD [address] [place] [address] 06-17-2024 09:17-0400 Heart rate 46 /min EMMANUEL DE LA CRUZ MD [address] [place] [address] 06-17-2024 09:17-0400 Systolic Blood Pressure Non-Invasive 136 mm[Hg] EMMANUEL DE LA CRUZ MD [facility] 05-20-2024 22:15-0400 Body mass index (BMI) [Ratio] 27.6 kg/m2 Mireille Garnica MD Work Phone: [facility] 05-07-2024 13:05-0400 Body height 160.02 cm Mireille Garnica MD Work Phone: [facility] 04-20-2024 04:52-0500 Body mass index (BMI) [Ratio] 27.6 kg/m2 Mireille Garnica MD Work Phone: [facility] 04-11-2024 10:06-0500 Body mass index (BMI) [Ratio] 25 kg/m2 Mireille Garnica MD Work Phone: [facility] 04-11-2024 10:06-0500 Body weight 63.95 kg Mireille Garnica MD Work Phone: [facility] 04-11-2024 10:06-0500 Diastolic blood pressure 60 mm[Hg] Mireille Garnica MD Work Phone: [facility] 04-11-2024 10:06-0500 Heart rate 84 /min Mireille Garnica MD Work Phone: [facility] 04-11-2024 10:06-0500 Respiratory rate 16 /min Mireille Garnica MD Work Phone: [facility] 04-11-2024 10:06-0500 Systolic blood pressure 98 mm[Hg] Mireille Garnica MD Work Phone: [facility] 03-23-2024 14:00-0500 Body mass index (BMI) [Ratio] 27.6 kg/m2 Mireille Garnica MD Work Phone: [facility] 02-21-2024 04:26-0500 Body mass index (BMI) [Ratio] 27.6 kg/m2 Mireille Garnica MD Work Phone: [facility] 02-10-2024 03:14-0500 Body temperature 98.9 [degF] Mireille Garnica MD Work Phone: [facility] 02-10-2024 03:14-0500 Diastolic blood pressure 74 mm[Hg] Mireille Garnica MD Work Phone: [facility] 02-10-2024 03:14-0500 Heart rate 93 /min Mireille Garnica MD Work Phone: [facility] 02-10-2024 03:14-0500 Respiratory rate 108 /min Mireille Garnica MD Work Phone: [facility] 02-10-2024 03:14-0500 SaO2% (BldA) [Mass fraction] 98 % Mireille Garnica MD Work Phone: [facility] 02-10-2024 03:14-0500 Systolic blood pressure 123 mm[Hg] Mireille Garnica MD Work Phone: [facility] 02-10-2024 01:08-0500 Body mass index (BMI) [Ratio] 25.7 kg/m2 Mireille Garnica MD Work Phone: [facility] 02-10-2024 01:08-0500 Body weight 65.72 kg Mireille Garnica MD Work Phone: [facility] 02-09-2024 10:41-0500 Body mass index (BMI) [Ratio] 24.6 kg/m2 Mireille Garnica MD Work Phone: [facility] 02-09-2024 10:41-0500 Body weight 63.04 kg Mireille Garnica MD Work Phone: [facility] 02-09-2024 10:41-0500 Diastolic blood pressure 61 mm[Hg] Mireille Garnica MD Work Phone: [facility] 02-09-2024 10:41-0500 Heart rate 93 /min Mireille Garnica MD Work Phone: [facility] 02-09-2024 10:41-0500 Respiratory rate 18 /min Mireille Garnica MD Work Phone: [facility] 02-09-2024 10:41-0500 SaO2% (BldA) [Mass fraction] 96 % Mireille Garnica MD Work Phone: [facility] 02-09-2024 10:41-0500 Systolic blood pressure 92 mm[Hg] Mireille Garnica MD Work Phone: [facility] 12-21-2023 20:51-0400 Body mass index (BMI) [Ratio] 27.6 kg/m2 Mireille Garnica MD Work Phone: [facility] 05-20-2023 22:38-0400 Body mass index (BMI) [Ratio] 27.6 kg/m2 [facility] 04-20-2023 23:50-0500 Body mass index (BMI) [Ratio] 27.6 kg/m2 DO Dee Azevedo Work Phone: [facility] 03-22-2023 22:41-0500 Body mass index (BMI) [Ratio] 27.6 kg/m2 DO Dee Azevedo Work Phone: [facility] 02-19-2023 20:53-0500 Body mass index (BMI) [Ratio] 27.6 kg/m2 Dr. Marian Jackson Work Phone: [facility] 01-20-2023 03:16-0500 Body mass index (BMI) [Ratio] 27.6 kg/m2 No Primary Care Physician [facility] 01-17-2023 12:52-0500 Body height 160.02 cm No Primary Care Physician [facility] 01-17-2023 12:52-0500 Body mass index (BMI) [Ratio] 23.7 kg/m2 No Primary Care Physician [facility] 01-17-2023 12:52-0500 Body weight 60.78 kg No Primary Care Physician [facility] 01-17-2023 12:52-0500 Diastolic blood pressure 70 mm[Hg] No Primary Care Physician [facility] 01-17-2023 12:52-0500 Heart rate 46 /min No Primary Care Physician [facility] 01-17-2023 12:52-0500 Respiratory rate 18 /min No Primary Care Physician [facility] 01-17-2023 12:52-0500 SaO2% (BldA) [Mass fraction] 93 % No Primary Care Physician [facility] 01-17-2023 12:52-0500 Systolic blood pressure 163 mm[Hg] No Primary Care Physician [facility] 12-20-2022 22:50-0400 Body mass index (BMI) [Ratio] 27.6 kg/m2 No Primary Care Physician [facility] 11-23-2022 09:18-0400 Body height 160.02 cm No Primary Care Physician [facility] 11-23-2022 09:18-0400 Body mass index (BMI) [Ratio] 22.6 kg/m2 No Primary Care Physician [facility] 11-23-2022 09:18-0400 Body weight 58.11 kg No Primary Care Physician [facility] 11-23-2022 09:18-0400 Diastolic blood pressure 72 mm[Hg] No Primary Care Physician [facility] 11-23-2022 09:18-0400 Systolic blood pressure 134 mm[Hg] No Primary Care Physician [facility] 11-20-2022 02:47-0400 Body mass index (BMI) [Ratio] 27.6 kg/m2 No Primary Care Physician [facility] 10-20-2022 22:57-0400 Body mass index (BMI) [Ratio] 27.6 kg/m2 Dr. Marian Jackson Work Phone: [facility] 10-18-2022 13:02-0400 Body height 160.[address] Marian Jackson Work Phone: [facility] 10-18-2022 13:02-0400 Body mass index (BMI) [Ratio] 23.3 kg/m2 Dr. Marian Jackson Work Phone: [facility] 10-18-2022 13:02-0400 Body weight 59.[address] Marian Jackson Work Phone: [facility] 10-18-2022 13:02-0400 Diastolic blood pressure 65 mm[Hg] Dr. Marian Jackson Work Phone: [facility] 10-18-2022 13:02-0400 Heart rate 45 /min Dr. Marian Jackson Work Phone: [facility] 10-18-2022 13:02-0400 Respiratory rate 18 /min Dr. Marian Jackson Work Phone: [facility] 10-18-2022 13:02-0400 SaO2% (BldA) [Mass fraction] 96 % Dr. Marian Jackson Work Phone: [facility] 10-18-2022 13:02-0400 Systolic blood pressure 156 mm[Hg] Dr. Marian Jackson Work Phone: [facility] 09-20-2022 00:44-0400 Body mass index (BMI) [Ratio] 27.6 kg/m2 Dr. Marian Jackson Work Phone: [facility] 08-19-2022 22:22-0400 Body mass index (BMI) [Ratio] 27.6 kg/m2 Dr. Marian Jackson Work Phone: [facility] 07-21-2022 09:41-0400 Body mass index (BMI) [Ratio] 27.6 kg/m2 Dr. Marian Jackson Work Phone: [facility] 06-19-2022 01:21-0400 Body mass index (BMI) [Ratio] 27.6 kg/m2 Dr. Marian Jackson Work Phone: [facility] 05-21-2022 00:33-0400 Body mass index (BMI) [Ratio] 27.6 kg/m2 Dr. Marian Jackson Work Phone: [facility] 04-19-2022 23:02-0500 Body mass index (BMI) [Ratio] 27.6 kg/m2 Dr. Marian Jackson Work Phone: [facility] 03-23-2022 08:19-0500 Body mass index (BMI) [Ratio] 27.6 kg/m2 Dr. Marian Jackson Work Phone: [facility] 03-16-2022 13:25-0500 Body height 160.02 cm No Primary Care Physician [facility] 03-16-2022 13:25-0500 Body mass index (BMI) [Ratio] 24.1 kg/m2 No Primary Care Physician [facility] 03-16-2022 13:25-0500 Body weight 61.91 kg No Primary Care Physician [facility] 03-16-2022 09:54-0500 Body mass index (BMI) [Ratio] 23.9 kg/m2 No Primary Care Physician [facility] 03-16-2022 09:54-0500 Body weight 61.23 kg No Primary Care Physician [facility] 03-16-2022 09:54-0500 Diastolic blood pressure 64 mm[Hg] No Primary Care Physician [facility] 03-16-2022 09:54-0500 Heart rate 59 /min No Primary Care Physician [facility] 03-16-2022 09:54-0500 Respiratory rate 18 /min No Primary Care Physician [facility] 03-16-2022 09:54-0500 SaO2% (BldA) [Mass fraction] 94 % No Primary Care Physician [facility] 03-16-2022 09:54-0500 Systolic blood pressure 142 mm[Hg] No Primary Care Physician [facility] 02-20-2022 03:57-0500 Body mass index (BMI) [Ratio] 27.6 kg/m2 No Primary Care Physician [facility] 02-02-2022 11:01-0500 Body height 160.02 cm No Primary Care Physician [facility] Work Phone: 02-02-2022 11:01-0500 Body mass index (BMI) [Ratio] 24.6 kg/m2 No Primary Care Physician [facility] 02-02-2022 11:01-0500 Body temperature 96.6 [degF] No Primary Care Physician [facility] 02-02-2022 11:01-0500 Body weight 63.04 kg No Primary Care Physician [facility] 02-02-2022 11:01-0500 Diastolic blood pressure 68 mm[Hg] No Primary Care Physician [facility] 02-02-2022 11:01-0500 Heart rate 76 /min No Primary Care Physician [facility] 02-02-2022 11:01-0500 Respiratory rate 16 /min No Primary Care Physician [facility] 02-02-2022 11:01-0500 SaO2% (BldA) [Mass fraction] 99 % No Primary Care Physician [facility] 02-02-2022 11:01-0500 Systolic blood pressure 120 mm[Hg] No Primary Care Physician [facility] 01-19-2022 23:13-0500 Body mass index (BMI) [Ratio] 27.6 kg/m2 No Primary Care Physician [facility] 01-03-2022 11:26-0500 Body height 160.[address] Alfa Oakes Work Phone: [facility] Work Phone: 01-03-2022 11:26-0500 Body mass index (BMI) [Ratio] 24.7 kg/m2 Dr. Alfa Oakes Work Phone: [facility] 01-03-2022 11:26-0500 Body weight 63.[address] Alfa Oakes Work Phone: [facility] 01-03-2022 11:26-0500 Diastolic blood pressure 70 mm[Hg] Dr. Alfa Oakes Work Phone: [facility] 01-03-2022 11:26-0500 Heart rate 56 /min Dr. Alfa Oakes Work Phone: [facility] 01-03-2022 11:26-0500 Respiratory rate 20 /min Dr. Alfa Oakes Work Phone: [facility] 01-03-2022 11:26-0500 Systolic blood pressure 140 mm[Hg] Dr. Alfa Oakes Work Phone: [facility] 12-21-2021 09:40-0400 Body mass index (BMI) [Ratio] 27.6 kg/m2 Dr. Alfa Oakes Work Phone: [facility] 12-09-2021 12:23-0400 Body height 160.[address] Alfa Oakes Work Phone: [facility] Work Phone: 11-24-2021 11:19-0400 Body height 160.[address] Alfa Oakes Work Phone: [facility] Work Phone: 11-24-2021 11:19-0400 Body mass index (BMI) [Ratio] 24.7 kg/m2 Dr. Alfa Oakes Work Phone: [facility] 11-24-2021 11:19-0400 Body temperature 97.3 [degF] Dr. Alfa Oakes Work Phone: [facility] 11-24-2021 11:19-0400 Body weight 63.[address] Alfa Oakes Work Phone: [facility] 11-24-2021 11:19-0400 Diastolic blood pressure 64 mm[Hg] Dr. Alfa Oakes Work Phone: [facility] 11-24-2021 11:19-0400 Heart rate 60 /min Dr. Alfa Oakes Work Phone: [facility] 11-24-2021 11:19-0400 Respiratory rate 14 /min Dr. Alfa Oakes Work Phone: [facility] 11-24-2021 11:19-0400 SaO2% (BldA) [Mass fraction] 96 % Dr. Alfa Oakes Work Phone: [facility] 11-24-2021 11:19-0400 Systolic blood pressure 138 mm[Hg] Dr. Alfa Oakes Work Phone: [facility] 11-22-2021 09:27-0400 Body mass index (BMI) [Ratio] 25.2 kg/m2 Dr. Alfa Oakes Work Phone: [facility] 11-22-2021 09:27-0400 Body weight 64.[address] Alfa Oakes Work Phone: [facility] 11-22-2021 09:27-0400 Diastolic blood pressure 59 mm[Hg] Dr. Alfa Oakes Work Phone: [facility] 11-22-2021 09:27-0400 Systolic blood pressure 133 mm[Hg] Dr. Alfa Oakes Work Phone: [facility] 11-19-2021 21:37-0400 Body mass index (BMI) [Ratio] 27.6 kg/m2 Dr. Alfa Oakes Work Phone: [facility] 10-20-2021 23:05-0400 Body mass index (BMI) [Ratio] 27.6 kg/m2 Dr. Alfa Oakes Work Phone: [facility] Work Phone: 09-28-2021 09:55-0400 Body height 160.[address] Alfa Oakes Work Phone: [facility] Work Phone: 09-28-2021 09:55-0400 Body mass index (BMI) [Ratio] 26 kg/m2 Dr. Alfa Oakes Work Phone: [facility] Work Phone: 09-28-2021 09:55-0400 Body temperature 96.8 [degF] Dr. Alfa Oakes Work Phone: [facility] Work Phone: 09-28-2021 09:55-0400 Body weight 66.[address] Alfa Oakes Work Phone: [facility] Work Phone: 09-28-2021 09:55-0400 Diastolic blood pressure 78 mm[Hg] Dr. Alfa Oakes Work Phone: [facility] Work Phone: 09-28-2021 09:55-0400 Heart rate 78 /min Dr. Alfa Oakes Work Phone: [facility] Work Phone: 09-28-2021 09:55-0400 Respiratory rate 16 /min Dr. Alfa Oakes Work Phone: [facility] Work Phone: 09-28-2021 09:55-0400 SaO2% (BldA) [Mass fraction] 98 % Dr. Alfa Oakes Work Phone: [facility] Work Phone: 09-28-2021 09:55-0400 Systolic blood pressure 118 mm[Hg] Dr. Alfa Oakes Work Phone: [facility] Work Phone: 09-19-2021 02:40-0400 Body mass index (BMI) [Ratio] 27.6 kg/m2 Dr. Alfa Oakes Work Phone: [facility] Work Phone: 08-20-2021 07:04-0400 Body mass index (BMI) [Ratio] 27.6 kg/m2 Dr. Alfa Freedman Work Phone: [facility] Work Phone: 07-20-2021 20:46-0400 Body mass index (BMI) [Ratio] 27.6 kg/m2 Dr. Alfa Freedman Work Phone: [facility] Work Phone: 06-28-2021 10:30-0400 Body height 160.[address] Alfa Freedman Work Phone: [facility] Work Phone: 06-28-2021 10:30-0400 Body mass index (BMI) [Ratio] 26.7 kg/m2 Dr. Alfa Freedman Work Phone: [facility] Work Phone: 06-28-2021 10:30-0400 Body weight 68.[address] Alfa Freedman Work Phone: [facility] Work Phone: 06-28-2021 10:30-0400 Diastolic blood pressure 71 mm[Hg] Dr. Alfa Freedman Work Phone: [facility] Work Phone: 06-28-2021 10:30-0400 Heart rate 69 /min Dr. Alfa Freedman Work Phone: [facility] Work Phone: 06-28-2021 10:30-0400 Respiratory rate 18 /min Dr. Alfa Freedman Work Phone: [facility] Work Phone: 06-28-2021 10:30-0400 SaO2% (BldA) [Mass fraction] 94 % Dr. Alfa Freedman Work Phone: [facility] Work Phone: 06-28-2021 10:30-0400 Systolic blood pressure 135 mm[Hg] Dr. Alfa Freedman Work Phone: [facility] Work Phone: 06-28-2021 10:30-0400 Body height 160.[address] Alfa Freedman Work Phone: [facility] Work Phone: 06-28-2021 10:30-0400 Body mass index (BMI) [Ratio] 26.7 kg/m2 Dr. Alfa Freedman Work Phone: [facility] Work Phone: 06-28-2021 10:30-0400 Body weight 68.[address] Alfa Freedman Work Phone: [facility] Work Phone: 06-28-2021 10:30-0400 Diastolic blood pressure 71 mm[Hg] Dr. Alfa Freedman Work Phone: [facility] Work Phone: 06-28-2021 10:30-0400 Heart rate 69 /min Dr. Alfa Freedman Work Phone: [facility] Work Phone: 06-28-2021 10:30-0400 Respiratory rate 18 /min Dr. Alfa Freedman Work Phone: [facility] Work Phone: 06-28-2021 10:30-0400 SaO2% (BldA) [Mass fraction] 94 % Dr. Alfa Freedman Work Phone: [facility] Work Phone: 06-28-2021 10:30-0400 Systolic blood pressure 135 mm[Hg] Dr. Alfa Freedman Work Phone: [facility] Work Phone: 06-20-2021 03:25-0400 Body mass index (BMI) [Ratio] 27.6 kg/m2 Dr. Alfa Freedman Work Phone: [facility] Work Phone: 05-21-2021 02:30-0400 Body mass index (BMI) [Ratio] 27.6 kg/m2 [facility] Work Phone: 04-20-2021 09:44-0500 Body mass index (BMI) [Ratio] 27.6 kg/m2 Dr. Alfa Freedman Work Phone: [facility] Work Phone: 04-20-2021 08:44-0500 Body mass index (BMI) [Ratio] 27.6 kg/m2 No Primary Care Physician [facility] Work Phone: 03-23-2021 00:14-0500 Body mass index (BMI) [Ratio] 27.6 kg/m2 No Primary Care Physician [facility] Work Phone: 02-21-2021 03:21-0500 Body mass index (BMI) [Ratio] 27.6 kg/m2 No Primary Care Physician [facility] Work Phone: 01-20-2021 02:24-0500 Body mass index (BMI) [Ratio] 27.6 kg/m2 No Primary Care Physician [facility] Work Phone: 12-27-2016 10:52-0500 BP Diastolic 68 mm[Hg] [facility]ad[facility] Work Phone: 12-27-2016 10:52-0500 BP Systolic 140 mm[Hg[facility] Work Phone: 12-27-2016 10:52-0500 Pulse (Heart Rate) 52 /min [facility] Work Phone: 12-27-2016 10:52-0500 Respiratory Rate 20 /min [facility] Work Phone: 12-12-2016 16:06-0400 Heart rate 79 /min [facility] Work Phone: 12-12-2016 13:06-0400 BMI (Body Mass Index) 25.29 kg/m2 [facility] Work Phone: 12-12-2016 13:06-0400 BP Diastolic 64 mm[Hg] [facility] Work Phone: 12-12-2016 13:06-0400 BP Systolic 124 mm[Hg] [facility] Work Phone: 12-12-2016 13:06-0400 Height 165.1 cm [facility] Work Phone: 12-12-2016 13:06-0400 Pulse (Heart Rate) 78 /min [facility] Work Phone: 12-12-2016 13:06-0400 Respiratory Rate 18 /min [facility] Work Phone: 12-12-2016 13:06-0400 Weight 68.95 kg [facility] Work Phone: 06-02-2016 10:58-0400 Heart rate 48 /min [facility] Work Phone: 05-02-2016 12:55-0400 BMI (Body Mass Index) 23.13 kg/m2 [facility] Work Phone: 05-02-2016 12:55-0400 BP Diastolic 60 mm[Hg] [facility] Work Phone: 05-02-2016 12:55-0400 BP Systolic 120 mm[Hg] [facility] Work Phone: 05-02-2016 12:55-0400 Height 165.1 cm [facility] Work Phone: 05-02-2016 12:55-0400 Pulse (Heart Rate) 74 /min [facility] Work Phone: 05-02-2016 12:55-0400 Pulse Oximetry 97 % [facility] Work Phone: 05-02-2016 12:55-0400 Respiratory Rate 18 /min [facility] Work Phone: 05-02-2016 12:55-0400 Weight 63.05 kg [facility] Work Phone: 01-18-2016 09:01-0500 BSA (Body Surface Area) 1.7 m2 [facility] Work Phone: 08-17-2015 08:56-0400 Pulse Oximetry 98 % [facility] Work Phone: 01-23-2012 13:30-0500 Heart rate 430 ms [facility] Work Phone: Encounters Encounter Date Encounter Type Care Provider Facility Start: 09-10-2024 ambulatory Alfa Bush NP Facility :[facility] Start: 09-03-2024 ambulatory Chalon Nahun Facility:[facility] Start: 08-26-2024 End: 08-26-2024 Patient encounter procedure Alfa Bush NP-C -[facility] Work Phone: Start: 08-26-2024 End: 08-26-2024 ambulatory Mireille Garnica MD Work Phone: [facility] Start: 08-21-2024 Registered Recurring Alfa Bush [employer]- C -Laboratory Work Phone: Start: 08-13-2024 End: 08-13-2024 ambulatory Mireille Garnica MD Work Phone: -Laboratory Start: 08-13-2024 End: 08-13-2024 Discharged Recurring Alfa Bush [employer]-C -Laboratory Work Phone: Start: 07-19-2024 End: 07-19-2024 ambulatory Mireille Garnica MD Work Phone: [facility] Work Phone: Start: 07-19-2024 End: 07-19-2024 Patient encounter procedure Cortez Louie NP-C -Laboratory Work Phone: Start: 07-19-2024 End: 07-19-2024 ambulatory Mireille Garnica Facility:[facility] Start: 07-12-2024 End: 07-12-2024 ambulatory Mireille Garnica MD Work Phone: [facility] Work Phone: Start: 07-12-2024 End: 07-12-2024 Discharged Recurring Alfa Bush [employer]-C -Laboratory Work Phone: Start: 07-01-2024 End: 07-02-2024 ambulatory MIREILLE GARNICA MD Facility:[facility] Start: 07-01-2024 End: 07-02-2024 Observation EMMANUEL DE LA CRUZ MD [facility] Start: 06-28-2024 End: 06-28-2024 Patient encounter procedure Cortez Louie NP-C -[facility] Work Phone: Start: 06-28-2024 End: 06-28-2024 ambulatory Mireille Garnica Facility:[facility] Start: 06-17-2024 End: 06-17-2024 Admission to establishment EMMANUEL DE LA CRUZ MD [facility] Start: 06-17-2024 End: 06-17-2024 ambulatory MIREILLE GARNICA MD Facility:[facility] Start: 06-07-2024 End: 06-19-2024 ambulatory Alfa Bush [employer] Facility:[facility] Start: 06-07-2024 End: 06-19-2024 Discharged Recurring Alfa Bush [employer]-C -Laboratory Work Phone: Start: 05-16-2024 Non-patient / Non-visit [facility] Start: 05-16-2024 End: 05-16-2024 Patient encounter procedure Alfa Bush [employer]-C -Cardi[facility] Work Phone: Start: 05-16-2024 End: 05-16-2024 Discharged Recurring Alfa Janeth Rachelle [employer]-C -Laboratory Work Phone: Start: 05-16-2024 End: 05-16-2024 ambulatory Mireille Garnica MD Work Phone: [facility] Work Phone: Start: 05-16-2024 End: 05-16-2024 ambulatory Alfa Bush [employer] Facility:[facility] Start: 05-07-2024 End: 05-07-2024 Patient encounter procedure Alfa Janeth Rachelle [employer]-C -[facility] Work Phone: Start: 05-07-2024 End: 05-07-2024 ambulatory Alfa H Rachelle [employer] [facility] Start: 04-15-2024 End: 04-19-2024 ambulatory Alfa H Roof [employer] Facility:[facility] Start: 04-15-2024 End: 04-19-2024 Discharged Recurring Alfa Bush [employer]-C -Laboratory Work Phone: Start: 04-11-2024 End: 04-11-2024 Patient encounter procedure Alfa Bush [employer]-C -[facility] Work Phone: Start: 04-11-2024 End: 04-11-2024 ambulatory Alfa Bush [employer] Facility:[facility] Start: 03-14-2024 End: 03-14-2024 ambulatory Alfa Bush [employer] Facility:[facility] Start: 03-14-2024 End: 03-14-2024 Discharged Recurring Alfa Bush [employer]-C -Laboratory Work Phone: Start: 02-19-2024 End: 02-19-2024 ambulatory Becca Roberto Carlos [facility] Facility:[facility] Start: 02-19-2024 End: 02-19-2024 Discharged Recurring Alfa Bush [employer]-C -Laboratory Work Phone: Start: 02-10-2024 End: 02-10-2024 Emergency department patient visit Dr. Avtar Bustamante -Emergency Department Work Phone: Start: 02-09-2024 End: 02-09-2024 Patient encounter procedure Alfa Bush [employer]-C -[facility] Work Phone: Start: 02-09-2024 End: 02-09-2024 ambulatory Alfa Bush [employer] Facility:[facility] Start: 01-12-2024 End: 01-12-2024 ambulatory Alfa Bush [employer] Facility:[facility] Start: 01-12-2024 ambulatory Colleen Alegria [facility] Start: 01-12-2024 End: 01-12-2024 ambulatory Alfa Fowler Roof [employer] Facility:[facility] Start: 12-28-2023 End: 12-28-2023 ambulatory Becca Roberto Carlos [facility]SC Facility:[facility] Start: 12-28-2023 End: 12-28-2023 ambulatory Alfa Fowler Roof [employer] Facility:[facility] Start: 12-21-2023 End: 12-21-2023 ambulatory Becca Roberto Carlos [facility] Facility:[facility] Start: 12-20-2023 End: 12-20-2023 ambulatory Becca Roberto Carlos [facility] Facility:[facility] Start: 11-02-2023 End: 11-02-2023 ambulatory Becca Roberto Carlos [facility] Facility:[facility] Start: 10-19-2023 End: 10-19-2023 ambulatory Becca Azevedo [facility] Facility:[facility] Start: 06-14-2023 End: 06-20-2023 ambulatory [facility] Work Phone: Start: 06-14-2023 End: 06-20-2023 Discharged Recurring [facility] Work Phone: Start: 05-02-2023 End: 05-20-2023 ambulatory DO Dee Azevedo Work Phone: [facility] Work Phone: Start: 05-02-2023 End: 05-20-2023 Discharged Recurring DO Dee Azevedo Work Phone: [facility] Work Phone: Start: 04-05-2023 End: 04-20-2023 ambulatory DO Dee Azevedo Work Phone: [facility] Work Phone: Start: 04-05-2023 End: 04-20-2023 Discharged Recurring DO Dee Azevedo Work Phone: [facility] Work Phone: Start: 03-07-2023 End: 03-07-[address] Marian Jackson Work Phone: [facility] Work Phone: Start: 03-07-2023 End: 03-07-[address] Marian Jackson Work Phone: [facility] Work Phone: Start: 02-07-2023 End: 02-19-[address] Marian Jackson Work Phone: [facility] Work Phone: Start: 01-27-2023 Non-patient / Non-visit [facility] Start: 01-26-2023 End: 01-26-2023 ambulatory No Primary Care Physician [facility] Work Phone: Start: 01-26-2023 End: 01-26-2023 Patient encounter procedure No Primary Care Physician [facility]-Pulmonary Services/Neurology Work Phone: Start: 01-24-2023 Registered Recurring No Primar y Care Physician [facility]-Laboratory Work Phone: Start: 01-17-2023 End: 01-17-2023 Patient encounter procedure No Primary Care Physician [facility] Work Phone: Start: 01-17-2023 End: 01-19-2023 ambulatory No Primary Care Physician [facility] Work Phone: Start: 01-17-2023 End: 01-19-2023 Discharged Recurring No Primary Care Physician [facility]-Laboratory Work Phone: Start: 12-20-2022 End: 12-20-2022 ambulatory No Primary Care Physician [facility] Work Phone: Start: 12-20-2022 End: 12-20-2022 Discharged Recurring No Primary Care Physician [facility]-Laboratory Work Phone: Start: 12-12-2022 End: 12-12-2022 ambulatory No Primary Care Physician [facility] Work Phone: Start: 12-12-2022 End: 12-12-2022 Patient encounter procedure No Primary Care Physician [facility]-Outpatient Breast Imaging Work Phone: Start: 12-06-2022 Registered Recurring No Primar y Care Physician [facility]-Laboratory Work Phone: Start: 11-23-2022 End: 11-23-2022 Patient encounter procedure No Primary Care Physician [facility] Work Phone: Start: 11-03-2022 End: 11-03-[address] Marian Jackson Work Phone: [facility] Work Phone: Start: 11-03-2022 End: 11-03-[address] Marian Jackson Work Phone: [facility] Work Phone: Start: 10-25-2022 End: 10-25-2022 Discharged Recurring No [facility] Start: 10-25-[address] Carolyn Jackson [facility] Start: 10-18-2022 End: 10-18-[address] Marian Jackson Work Phone: [facility] Work Phone: Start: 09-27-2022 End: 09-27-[address] Marian Jackson Work Phone: [facility] Work Phone: Start: 09-27-2022 End: 09-27-[address] [facility] Start: 08-30-2022 End: 09-19-[address] Marian Jackson [facility] Start: 08-09-2022 End: 08-09-[address] Marian Jackson Work Phone: [facility] Work Phone: Start: 08-09-2022 End: 08-09-[address] [facility] Start: 07-29-2022 Non-patient / Non-visit Dr. Swann Work Phone: [facility] Work Phone: Start: 07-01-2022 End: 07-20-[address] Marian Jackson Work Phone: [facility] Work Phone: Start: 07-01-2022 End: 07-20-[address] Marian Jackson Work Phone: [facility]-Laboratory Start: 06-03-2022 End: 06-19-[address] Marian Jackson Work Phone: [facility] Work Phone: Start: 06-03-2022 End: 06-19-[address] Marian Jackson Work Phone: [facility]Laboratory Start: 05-06-2022 End: 05-20-[address] Marian Jackson Work Phone: [facility] Work Phone: Start: 05-06-2022 End: 05-20-[address] Marian Jackson Work Phone: [facility]Laboratory Start: 04-14-2022 End: 04-14-2022 ambulatory No Primary Care Physician [facility] Work Phone: Start: 04-14-2022 End: 04-14-2022 Discharged Recurring No Primary Care Physician [facility]Laboratory Start: 04-08-2022 Non-patient / Non-visit No Mona grider Care Physician [facility] Start: 04-05-2022 Non-patient / Non-visit No Mona grider Care Physician [facility] Start: 04-05-2022 End: 04-05-2022 ambulatory No Primary Care Physician [facility] Work Phone: Start: 04-05-2022 End: 04-05-2022 Patient encounter procedure No Primary Care Physician [facility]-Pulmonary Services/Neurology Start: 04-05-2022 Registered Recurring No Primar y Care Physician [facility]Laboratory Start: 03-23-[address] Carolyn Jackson Work Phone: [facility]Laboratory Start: 03-16-2022 End: 03-16-2022 Patient encounter procedure No Primary Care Physician [facility] Start: 03-16-2022 End: 03-16-[address] Marian Jackson Work Phone: [facility] Work Phone: Start: 03-16-2022 End: 03-16-2022 Patient encounter procedure No Primary Care Physician [facility]-Laboratory Start: 03-16-2022 End: 03-16-2022 Patient encounter procedure No Primary Care Physician [facility] Start: 03-08-2022 End: 03-08-2022 Patient encounter procedure No Primary Care Physician [facility] Start: 03-08-2022 End: 03-08-2022 ambulatory No Primary Care Physician [facility] Work Phone: Start: 03-08-2022 End: 03-08-[address] Marian Jackson Work Phone: [facility]Laboratory Start: 03-08-2022 Registered Recurring No Primar y Care Physician [facility]Laboratory Start: 02-09-2022 Non-patient / Non-visit No Mona cheo Care Physician [facility] Start: 02-02-2022 End: 02-02-2022 ambulatory No Primary Care Physician [facility] Work Phone: Start: 02-02-2022 End: 02-02-2022 Patient encounter procedure No Primary Care Physician [facility]-Laboratory, [facility] Start: 02-02-2022 End: 02-02-2022 Patient encounter procedure No Primary Care Physician [facility] Start: 01-31-2022 End: 01-31-2022 ambulatory No Primary Care Physician [facility] Work Phone: Start: 01-31-2022 End: 01-31-2022 Discharged Recurring No Primary Care Physician [facility]-Laboratory Start: 01-31-2022 Registered Recurring No Primar y Care Physician [facility]-Laboratory Start: 01-19-2022 End: 01-19-[address] Alfa Oakes Work Phone: [facility] Work Phone: Start: 01-19-2022 End: 01-19-[address] Alfa Oakes Work Phone: [facility]-Physical Therapy Start: 01-19-[address] Alfa Oakes Work Phone: [facility]-Physical Therapy Start: 01-17-2022 End: 01-19-[address] Alfa Oakes Work Phone: [facility] Work Phone: Start: 01-17-2022 End: 01-19-[address] Alfa Oakes Work Phone: [facility]Laboratory Start: 01-17-[address] Alfa Oakes Work Phone: [facility]Laboratory Start: 01-11-[address] Alfa sweet Work Phone: [facility]-Cardiovascular Services Start: 01-11-2022 Non-patient / Non-visit Dr. Reva Oakes Work Phone: [facility] Start: 01-11-2022 End: 01-11-[address] Alfa Oakes Work Phone: [facility] Work Phone: Start: 01-11-2022 End: 01-11-[address] Alfa Oakes Work Phone: [facility]-Cardiovascular Services Start: 01-10-[address] Alfa Oakes Work Phone: [facility]-Physical Therapy Start: 01-03-2022 End: 01-03-[address] Alfa Oakes Work Phone: [facility] Start: 12-20-2021 End: 12-20-[address] Alfa Oakes Work Phone: [facility] Work Phone: Start: 12-20-2021 End: 12-20-[address] Alfa Oakes Work Phone: [facility]-Laboratory Start: 12-16-[address] Alfa Oakes Work Phone: [facility]-Physical Therapy Start: 12-14-[address] Alfa Oakes Work Phone: [facility]-Physical Therapy Start: 12-09-2021 End: 12-09-[address] Alfa Oakes Work Phone: [facility] Work Phone: Start: 12-09-2021 End: 12-09-[address] Alfa Oakes Work Phone: [facility]-Outpatient Bone Densitometry Start: 12-08-2021 End: 12-08-[address] Alfa Oakes Work Phone: [facility] Start: 11-30-2021 End: 11-30-[address] Alfa Oakes Work Phone: [facility] Work Phone: Start: 11-30-2021 End: 11-30-[address] Alfa Oakes Work Phone: [facility] Start: 11-26-[address] Alfa Oakes Work Phone: [facility]-Laboratory Start: 11-24-2021 End: 11-24-[address] Alfa Oakes Work Phone: [facility] Internal Medicine Start: 11-22-2021 End: 11-22-[address] Alfa Oakes Work Phone: [facility] Start: 11-05-2021 End: 11-05-[address] Alfa Oakes Work Phone: [facility] Work Phone: Start: 11-05-2021 End: 11-05-[address] Alfa Oakes Work Phone: [facility]-Laboratory Start: 10-15-2021 End: 10-15-[address] Alfa Oakes Work Phone: [facility] Start: 10-08-2021 End: 10-08-[address] Alfa Oakes Work Phone: [facility]Laboratory Start: 09-28-2021 End: 09-28-[address] Alfa Oakes Work Phone: [facility] Internal Medicine Start: 09-10-2021 End: 09-19-[address] [facility] Start: 08-18-2021 Non-patient / Non-visit Dr. Reva Freedman Work Phone: [facility] Start: 08-18-2021 End: 08-18-[address] [facility] Start: 06-28-2021 End: 06-28-[address] Alfa Freedman Work Phone: [facility] Start: 06-23-2021 End: 06-23-[address] Alfa Freedman Work Phone: [facility]Laboratory Start: 06-23-[address] Alfa Freedman Work Phone: [facility]Labor[facility] Start: 05-25-2021 End: 05-25-2021 Discharged Recurring [facility]Labor[facility] Start: 05-04-2021 End: 05-20-2021 Discharged Recurring No Primary Care Physician [facility]Laboratory Start: 04-06-2021 End: 04-06-2021 Discharged Recurring No Primary Care Physician [facility]Laboratory Start: 03-17-2021 End: 03-22-2021 Discharged Recurring No Primary Care Physician [facility]Laboratory Start: 02-16-2021 Non-patient / Non-visit No Mona cheo Care Physician [facility] Start: 02-15-2021 Patient encounter procedure No Primary Care Physician [facility]-Pulmonary Services/Neurology Start: 02-09-2021 End: 02-20-2021 Discharged Recurring No Primary Care Physician [facility]Laboratory Start: 08-02-2016 End: 08-03-2016 Ambulatory BETH ([employer]) [facility] Procedures Date Procedure Procedure Detail Performing Clinician Start: 06-28-2024 Evaluation of diagnostic study results Mireille Garnica MD Work Phone: Start: 04-11-2024 Evaluation of diagnostic study results Mireille Garnica MD Work Phone: Start: 02-10-2024 SARS-CoV-2, Influenza & RSV (PCR) Mireille Garnica MD Work Phone: Start: 02-10-2024 X-ray of chest, PA and lateral views Mireille Garnica MD Work Phone: Start: 02-09-2024 Evaluation of diagnostic study results Mireille Garnica MD Work Phone: Start: 12-12-2022 Screening mammography of right breast No Primary Care Physician Start: 11-03-[address] Marian Jackson Work Phone: Start: 03-16-2022 X-ray of lumbar spine, two or three views No Primary Care Physician Start: 03-08-2022 MRI of lumbar spine No Primary Care Physician Start: 12-09-2021 Dual energy X-ray absorptiometry Dr. Alfa Oakes Work Phone: Start: 12-09-[address] Alfa Oakes Work Phone: Start: 11-30-2021 CT of head without contrast Dr. Alfa Oakes Work Phone: Start: 11-30-2021 Radiologic examination of knee Dr. Alfa Oakes Work Phone: Start: 11-30-2021 X-ray of lumbar spine, two or three views Dr. Alfa Oakes Work Phone: Start: 11-30-2021 Plain x-ray of pelvis and lower extremity Dr. Alfa Oakes Work Phone: Start: 10-15-[address] Alfa Oakes Work Phone: Start: 02-20-2021 Cataract extraction and insertion of intraocular lens EMMANUEL DE LA CRUZ MD Start: 11-13-2020 Cardioversion EMMANUEL DE LA CRUZ MD Start: 12-12-2016 End: 12-12-2016 GREDA Monet MD Work Phone: Start: 12-12-2016 End: 12-12-2016 Follow Up Appt 6 months Reed Monet MD Work Phone: Start: 12-12-2016 End: 12-12-2016 Follow Up BP Check Reed Monet MD Work Phone: Start: 12-12-2016 End: 12-12-2016 Dietary management education, guidance, and counseling Chetna Hassan Start: 12-12-2016 End: 12-12-2016 GERDA Monet MD Work Phone: Start: 12-12-2016 End: 12-12-2016 Follow Up Appt 6 months Reed Monet MD Work Phone: Start: 12-12-2016 End: 12-12-2016 Follow Up BP Check Reed Monet MD Work Phone: Start: 06-02-2016 End: 06-02-2016 Ecg routine ecg w/least 12 lds w/i&r Reed Monet MD Work Phone: Start: 06-02-2016 End: 06-02-2016 Electrocardiogram, complete Rede Monet MD Work Phone: Start: 05-20-2016 End: 05-20-2016 Nurse, Teaching, Wound Check (no charge) Reed Monet MD Work Phone: Start: 05-20-2016 End: 05-20-2016 Nurse, Teaching, Wound Check (no charge) Reed Monet MD Work Phone: Start: 05-17-2016 End: 05-20-2016 *BMP Reed Monet MD Work Phone: Start: 05-17-2016 End: 05-20-2016 *BMP Reed Monet MD Work Phone: Start: 05-02-2016 End: 12-12-2016 Cardioversion Reed Monet MD Work Phone: Start: 05-02-2016 End: 05-02-2016 GERDA Monet MD Work Phone: Start: 05-02-2016 End: 05-02-2016 Follow Up Appt 6 months Reed Monet MD Work Phone: Start: 05-02-2016 End: 05-06-2016 INR in Platelet poor plasma by Coagulation assay Reed Monet MD Work Phone: Start: 05-02-2016 End: 12-12-2016 Cardioversion Reed Monet MD Work Phone: Start: 05-02-2016 End: 05-06-2016 Coagulation factor induced.INR assay in platelet poor plasma Reed Monet MD Work Phone: Start: 05-02-2016 End: 05-02-2016 GERDA Monet MD Work Phone: Start: 05-02-2016 End: 05-02-2016 Follow Up Appt 6 months Reed Monet MD Work Phone: Start: 01-18-2016 End: 04-28-2016 GERDA Monet MD Work Phone: Start: 01-18-2016 End: 01-21-2016 Ecg routine ecg w/least 12 lds w/i&r Reed Monet MD Work Phone: Start: 01-18-2016 End: 01-21-2016 Echocardiography Reed Monet MD Work Phone: Start: 01-18-2016 End: 04-28-2016 Follow Up Appt 3 months Reed Monte MD Work Phone: Start: 01-18-2016 End: 01-18-2016 INR in Platelet poor plasma by Coagulation assay Reed Monet MD Work Phone: Start: 01-18-2016 End: 01-18-2016 Coagulation factor induced.INR assay in platelet poor plasma Reed Monet MD Work Phone: Start: 01-18-2016 End: 04-28-2016 GERDA Monet MD Work Phone: Start: 01-18-2016 End: 01-21-2016 Echocardiography Reed Monet MD Work Phone: Start: 01-18-2016 End: 01-21-2016 Electrocardiogram, complete Reed Moent MD Work Phone: Start: 01-18-2016 End: 04-28-2016 Follow Up Appt 3 months Reed Monet MD Work Phone: Start: 01-13-2016 End: 01-13-2016 *Hepatic Function Panel Reed Monet MD Work Phone: Start: 01-13-2016 End: 01-13-2016 Lipid 1996 panel - Serum or Plasma Reed Monet MD Work Phone: Start: 01-13-2016 End: 01-13-2016 *Hepatic Function Panel Reed Monet MD Work Phone: Start: 01-13-2016 End: 01-13-2016 Lipid panel [AGGREGATE] Reed Monet MD Work Phone: Start: 08-17-2015 End: 08-17-2015 GERDA Monet MD Work Phone: Start: 08-17-2015 End: 08-17-2015 Ecg routine ecg w/least 12 lds w/i&r Reed Monet MD Work Phone: Start: 08-17-2015 End: 08-17-2015 Follow Up Appt 6 months Reed Monet MD Work Phone: Start: 08-17-2015 End: 08-17-2015 GERDA Monet MD Work Phone: Start: 08-17-2015 End: 08-17-2015 Electrocardiogram, complete Reed Monet MD Work Phone: Start: 08-17-2015 End: 08-17-2015 Follow Up Appt 6 months Reed Monet MD Work Phone: Start: 08-10-2015 End: 11-06-2015 *Hepatic Function Panel Reed Monet MD Work Phone: Start: 08-10-2015 End: 11-06-2015 Lipid 1996 panel - Serum or Plasma Reed Monet MD Work Phone: Start: 08-10-2015 End: 11-06-2015 *Hepatic Function Panel Reed Monet MD Work Phone: Start: 08-10-2015 End: 11-06-2015 Lipid panel [AGGREGATE] Reed Monet MD Work Phone: Start: 07-31-2015 End: 07-31-2015 SNOMED-CT: [id number] Report of clinical encounter Kylah Hooker RN Start: 07-31-2015 End: 07-31-2015 SNOMED-CT: [id number] Report of clinical encounter Kylah Hooker RN Start: 07-03-2015 End: 07-16-2015 Ecg routine ecg w/least 12 lds w/i&r Reed Monet MD Work Phone: Start: 07-03-2015 End: 07-16-2015 Electrocardiogram, complete Reed Monet MD Work Phone: Start: 06-19-2015 End: 06-22-2015 GERDA Monet MD Work Phone: Start: 06-19-2015 End: 06-22-2015 Follow Up Appt 3 months Reed Monet MD Work Phone: Start: 06-19-2015 End: 06-22-2015 GERDA Monet MD Work Phone: Start: 06-19-2015 End: 06-22-2015 Follow Up Appt 3 months Reed Monet MD Work Phone: Start: 06-09-2015 End: 06-22-2015 Follow Up BP Check Reed Monet MD Work Phone: Start: 06-09-2015 End: 06-22-2015 Follow Up BP Check Reed Monet MD Work Phone: Start: 06-05-2015 End: 06-22-2015 *BMP Reed Monet MD Work Phone: Start: 06-05-2015 End: 07-13-2015 Cardioversion Reed Monet MD Work Phone: Start: 06-05-2015 End: 06-22-2015 Chest x-ray Reed Monet MD Work Phone: Start: 06-05-2015 End: 06-05-2015 Ecg routine ecg w/least 12 lds w/i&r Reed Monet MD Work Phone: Start: 06-05-2015 End: 06-18-2015 INR in Platelet poor plasma by Coagulation assay Reed Monet MD Work Phone: Start: 06-05-2015 End: 06-22-2015 *BMP Reed Monet MD Work Phone: Start: 06-05-2015 End: 07-13-2015 Cardioversion Reed Monet MD Work Phone: Start: 06-05-2015 End: 06-22-2015 Chest x-ray Reed Monet MD Work Phone: Start: 06-05-2015 End: 06-18-2015 Coagulation factor induced.INR assay in platelet poor plasma Reed Monet MD Work Phone: Start: 06-05-2015 End: 06-05-2015 Electrocardiogram, complete Reed Monet MD Work Phone: Start: 06-01-2015 End: 06-05-2015 Thyrotropin [Units/volume] in Serum or Plasma Reed Monet MD Work Phone: Start: 06-01-2015 End: 06-05-2015 Thyroxine (T4) [Mass/volume] in Serum or Plasma Reed Monet MD Work Phone: Start: 06-01-2015 End: 06-05-2015 Thyrotropin [Units/volume] in Serum or Plasma Reed Monet MD Work Phone: Start: 06-01-2015 End: 06-05-2015 Thyroxine (T4) Reed Monet MD Work Phone: Start: 03-30-2015 End: 03-30-2015 Ecg routine ecg w/least 12 lds w/i&r Reed Monet MD Work Phone: Start: 03-30-2015 End: 03-30-2015 Thyroid stimulating hormone (TSH) Reed Monet MD Work Phone: Start: 02-09-2015 End: 03-30-2015 Cardiac Rehab Reed Monet MD Work Phone: Start: 02-09-2015 End: 02-09-2015 DJN Reed Monet MD Work Phone: Start: 02-09-2015 End: 02-09-2015 Follow Up Appt 6 months Reed Monet MD Work Phone: Start: 02-09-2015 End: 03-30-2015 Cardiac Rehab Reed Monet MD Work Phone: Start: 02-09-2015 End: 02-09-2015 DJN Reed Monet MD Work Phone: Start: 02-09-2015 End: 02-09-2015 Follow Up Appt 6 months Reed Monet MD Work Phone: Start: 02-06-2015 Replacement of aortic valve Aortic valve replacement Chetna Hassan Start: 02-06-2015 Replacement of aortic valve Aortic valve replacement Kylah Hooker RN Start: 02-03-2015 End: 02-06-2015 *Hepatic Function Panel Chante Cao PA-C Work Phone: Start: 02-03-2015 End: 02-06-2015 Lipid 1996 panel - Serum or Plasma Chante Cao PA-C Work Phone: Start: 02-03-2015 End: 02-06-2015 *Hepatic Function Panel Chante Cao PA-C Work Phone: Start: 02-03-2015 End: 02-06-2015 Lipid panel [AGGREGATE] Chante Cao PA-C Work Phone: Start: 01-21-2015 Aortic valve replacement and aortoplasty EMMANUEL DE LA CRUZ MD Comment on above: 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, inserti on of v - wire TPW's Start: 12-26-2014 End: 01-23-2015 Thoracic Surgery Referral Reed schneider MD Work Phone: Start: 12-26-2014 End: 01-23-2015 Thoracic Surgery Referral Reed schneider MD Work Phone: Start: 12-16-2014 End: 12-17-2014 *BMP Reed Monet MD Work Phone: Start: 12-16-2014 End: 12-16-2014 aPTT in Platelet poor plasma by Coagulation assay Reed Monet MD Work Phone: Start: 12-16-2014 End: 12-16-2014 CBC W Auto Differential panel - Blood Reed Monet MD Work Phone: Start: 12-16-2014 End: 12-17-2014 Chest x-ray Reed Monet MD Work Phone: Start: 12-16-2014 End: 12-16-2014 RAFAELN Reed Monet MD Work Phone: Start: 12-16-2014 End: 12-17-2014 Documentation of current medications Reed Monet MD Work Phone: Start: 12-16-2014 End: 12-16-2014 Ecg routine ecg w/least 12 lds w/i&r Reed Monet MD Work Phone: Start: 12-16-2014 End: 12-30-2014 Echocardiography Reed Monet MD Work Phone: Start: 12-16-2014 End: 12-16-2014 Follow Up Appt 2 months Reed Monet MD Work Phone: Start: 12-16-2014 End: 12-16-2014 INR in Platelet poor plasma by Coagulation assay Reed Monet MD Work Phone: Start: 12-16-2014 End: 12-30-2014 Left & Right Heart Cath Reed Monet MD Work Phone: Start: 12-16-2014 End: 12-30-2014 Transesophageal echocardiogram (CINTHIA) Reed Monet MD Work Phone: Start: 12-16-2014 End: 12-17-2014 *BMP Reed Monet MD Work Phone: Start: 12-16-2014 End: 12-16-2014 aPTT Reed Monet MD Work Phone: Start: 12-16-2014 End: 12-16-2014 CBC W Auto Differential panel - Blood Reed Monet MD Work Phone: Start: 12-16-2014 End: 12-17-2014 Chest x-ray Reed Monet MD Work Phone: Start: 12-16-2014 End: 12-16-2014 DJN Reed Monet MD Work Phone: Start: 12-16-2014 End: 12-17-2014 Documentation of current medications Reed Monet MD Work Phone: Start: 12-16-2014 End: 12-30-2014 Echocardiography Reed Monet MD Work Phone: Start: 12-16-2014 End: 12-16-2014 Electrocardiogram, complete Reed Monet MD Work Phone: Start: 12-16-2014 End: 12-16-2014 Follow Up Appt 2 months Reed Monet MD Work Phone: Start: 12-16-2014 End: 12-16-2014 INR in Platelet poor plasma by Coagulation assay Reed Monet MD Work Phone: Start: 12-16-2014 End: 12-30-2014 Left & Right Heart Cath Reed Monet MD Work Phone: Start: 12-16-2014 End: 12-30-2014 Transesophageal echocardiogram (CINTHIA) Reed Monet MD Work Phone: Start: 08-15-2014 End: 09-19-2014 Nurse, Teaching, Wound Check (no charge) Reed Monet MD Work Phone: Start: 08-15-2014 End: 09-19-2014 Nurse, Teaching, Wound Check (no charge) Reed Monet MD Work Phone: Start: 07-21-2014 End: 08-04-2014 Echocardiography Reed Monet MD Work Phone: Start: 07-21-2014 End: 08-04-2014 Lipid 1996 panel - Serum or Plasma Reed Monet MD Work Phone: Start: 07-21-2014 End: 08-04-2014 Echocardiography Reed Monet MD Work Phone: Start: 07-21-2014 End: 08-04-2014 Lipid panel [AGGREGATE] Reed Monet MD Work Phone: Start: 07-07-2014 End: 07-07-2014 DJN Reed Monet MD Work Phone: Start: 07-07-2014 End: 07-07-2014 Follow Up Appt 6 months Reed Monet MD Work Phone: Start: 07-07-2014 End: 07-07-2014 GERDA Monet MD Work Phone: Start: 07-07-2014 End: 07-07-2014 Follow Up Appt 6 months Reed Monet MD Work Phone: Start: 06-03-2014 End: 06-11-2014 Echocardiography Reed Monet MD Work Phone: Start: 06-02-2014 End: 06-11-2014 Echocardiography Reed Monet MD Work Phone: Start: 06-02-2014 End: 06-02-2014 Follow Up Appt 6 months Reed Monet MD Work Phone: Start: 06-02-2014 End: 06-24-2014 Stress Echocardiogram (treadmill) Reed Monet MD Work Phone: Start: 06-02-2014 End: 08-11-2014 Xtrnl mobile cv telemetry w/i&report 30 days Reed Monet MD Work Phone: Start: 06-02-2014 End: 06-02-2014 Dietary management education, guidance, and counseling Kylah Hooker RN Start: 06-02-2014 End: 06-24-2014 Echocardiography Reed Monet MD Work Phone: Start: 06-02-2014 End: 06-02-2014 Follow Up Appt 6 months Reed Monet MD Work Phone: Start: 06-02-2014 End: 08-11-2014 Remote 30 day ecg rev/report Reed Monet MD Work Phone: Start: 01-27-2014 End: 01-27-2014 GERDA Monet MD Work Phone: Start: 01-27-2014 End: 01-31-2014 Echocardiography Reed Monet MD Work Phone: Start: 01-27-2014 End: 01-27-2014 Follow Up Appt 1 year Yusuf Feliciano Work Phone: Start: 01-27-2014 End: 01-27-2014 GERDA Monet MD Work Phone: Start: 01-27-2014 End: 01-31-2014 Echocardiography Reed Monet MD Work Phone: Start: 01-27-2014 End: 01-27-2014 Follow Up Appt 1 year Yusuf Feliciano Work Phone: Start: 09-20-2013 End: 12-09-2013 *Hepatic Function Panel Reed Monet MD Work Phone: Start: 09-20-2013 End: 12-09-2013 Lipid 1996 panel - Serum or Plasma Reed Monet MD Work Phone: Start: 09-20-2013 End: 12-09-2013 *Hepatic Function Panel Reed Monet MD Work Phone: Start: 09-20-2013 End: 12-09-2013 Lipid panel [AGGREGATE] Reed Monet MD Work Phone: Start: 02-20-2013 End: 04-02-2013 *Hepatic Function Panel Joey Martines MD Start: 02-20-2013 End: 04-02-2013 Lipid 1996 panel - Serum or Plasma Joey Martines MD Start: 02-20-2013 End: 04-02-2013 *Hepatic Function Panel Joey Martines MD Start: 02-20-2013 End: 04-02-2013 Lipid panel [AGGREGATE] Joey Martines MD Start: 01-29-2013 End: 01-29-2013 GERDA Monet MD Work Phone: Start: 01-29-2013 End: 01-21-2014 Echocardiography Reed Monet MD Work Phone: Start: 01-29-2013 Replacement of mitral valve MITRAL VALVE REPLACEMENT, HX OF Chetna Hassan Start: 01-29-2013 End: 01-29-2013 DJN Reed Monet MD Work Phone: Start: 01-29-2013 End: 01-21-2014 Echocardiography Reed Monet MD Work Phone: Start: 01-29-2013 Replacement of mitral valve MITRAL VALVE REPLACEMENT, HX OF Kylah Hooker RN Start: 08-08-2012 End: 08-29-2012 *Hepatic Function Panel Valeriy Gonzalez MD Start: 08-08-2012 End: 08-29-2012 Lipid 1996 panel - Serum or Plasma Valeriy Gonzalez MD Start: 08-08-2012 End: 08-29-2012 *Hepatic Function Panel Valeriy Gonzalez MD Start: 08-08-2012 End: 08-29-2012 Lipid panel [AGGREGATE] Valeriy Gonzalez MD Start: 01-25-2012 End: 06-22-2012 *Hepatic Function Panel Valeriy Gonzalez MD Start: 01-25-2012 End: 06-22-2012 Lipid 1996 panel - Serum or Plasma Valeriy Gonzalez MD Start: 01-25-2012 End: 06-22-2012 *Hepatic Function Panel Valeriy Gonzalez MD Start: 01-25-2012 End: 06-22-2012 Lipid panel [AGGREGATE] Valeriy Gonzalez MD Start: 01-23-2012 End: 01-24-2012 Ecg routine ecg w/least 12 lds w/i&r Valeriy Gonzalez MD Start: 01-23-2012 End: 01-23-2012 Follow Up Appt 1 year Valeriy Gonzalez MD Start: 01-23-2012 End: 01-24-2012 Electrocardiogram, complete Valeriy W Nicolozakes MD Start: 01-23-2012 End: 01-23-2012 Follow Up Appt 1 year Valeriy Gonzalez MD Start: 07-26-2011 End: 08-22-2011 Echocardiography Valeriy Gonzalez MD Start: 07-26-2011 End: 07-26-2011 Follow Up Appt 6 months Valeriy Gonzalez MD Start: 07-26-2011 End: 08-22-2011 Echocardiography Valeriy Gonzalez MD Start: 07-26-2011 End: 07-26-2011 Follow Up Appt 6 months Valeriy Gonzalez MD Start: 06-27-2011 End: 06-30-2011 *Hepatic Function Panel Valeriy Gonzalez MD Start: 06-27-2011 End: 06-30-2011 Lipid 1996 panel - Serum or Plasma Valeriy Gonzalez MD Start: 06-27-2011 End: 06-30-2011 *Hepatic Function Panel Valeriy Gonzalez MD Start: 06-27-2011 End: 06-30-2011 Lipid panel [AGGREGATE] Valeriy Gonzalez MD Start: 04-25-2011 End: 04-25-2011 INR in Platelet poor plasma by Coagulation assay Valeriy Gonzalez MD Start: 04-25-2011 End: 04-25-2011 Coagulation factor induced.INR assay in platelet poor plasma Valeriy Gonzalez MD Start: 02-21-2000 History of mitral valve replacement EMMANUEL DE LA CRUZ MD Cardiac catheterization Cardiac catheterization 1 EMMANUEL DE LA CRUZ MD Comment on above: Normal coronary arteries 12/26/14 severe AI Cholecystectomy EMMANUEL DE LA CRUZ MD H/O: surgery History of surge ry on lower extremity Dr. Alfa Oakes Work Phone: Open reduction of fracture with internal fixation EMMANUEL DE LA CRUZ MD Comment on above: right leg right wrist Plan of Treatment Date Care Activity Detail Author Start: 08-26-2024 Evaluation of diagnostic study results [facility] Start: 02-12-2024 Patient referral [facility] Work Phone: Start: 02-10-2024 [facility] Start: 03-16-2022 Patient referral [facility] Work Phone: Start: 12-09-2021 Dual energy X-ray absorptiometry Dexa Bone Density Study [facility] Work Phone: Start: 12-09-2021 DXA Bone [Mass/Area] Bone density [facility] Work Phone: Start: 12-08-2021 Patient referral [facility] Work Phone: Start: 06-19-2017 End: 06-19-2017 Appointment Appointment [facility] Work Phone: Start: 12-27-2016 End: 12-27-2016 Appointment Appointment [facility] Work Phone: Start: 12-12-2016 End: 12-12-2016 Appointment Appointment [facility] Work Phone: Start: 12-12-2016 End: 12-12-2016 GERDA LORENZ [facility] Work Phone: Start: 12-12-2016 End: 12-12-2016 Follow Up Appt 6 months Follow Up Appt 6 months [facility] Work Phone: Start: 12-12-2016 End: 12-12-2016 Follow Up BP Check Follow Up BP Check [facility] Work Phone: Start: 12-12-2016 End: 12-12-2016 GERDA LORENZ [facility] Work Phone: Start: 12-12-2016 End: 12-12-2016 Follow Up Appt 6 months Follow Up Appt 6 months [facility] Work Phone: Start: 12-12-2016 End: 12-12-2016 Follow Up BP Check Follow Up BP Check [facility] Phone: Start: 11-21-2016 End: 11-21-2016 Appointment Appointment [facility] Work Phone: Start: 2016 End: 2016 Appointment Appointment [facility] Work Phone: Start: 2016 End: 2016 Appointment Appointment [facility] Work Phone: Start: 11-07-2016 End: 01-13-2016 *Hepatic Function Panel *Hepatic Function Panel [facility] Work Phone: Start: 11-07-2016 End: 01-13-2016 Lipid panel [AGGREGATE] *Lipid Profile CC PCP [employer] [facility] Work Phone: Start: 11-07-2016 End: 01-13-2016 *Hepatic Function Panel *Hepatic Function Panel [employer] [facility] Work Phone: Start: 11-07-2016 End: 01-13-2016 Lipid panel [AGGREGATE] *Lipid Profile CC PCP [employer] [facility] Work Phone: Start: 06-02-2016 End: 06-02-2016 Ecg routine ecg w/least 12 lds w/i&r EKG (In office) [employer] [facility] Work Phone: Start: 06-02-2016 End: 06-02-2016 Electrocardiogram, complete EKG (In office) [employer] [facility] Work Phone: Start: 05-17-2016 End: 05-20-2016 *BMP *BMP [employer] [facility] Work Phone: Start: 05-17-2016 End: 05-20-2016 *BMP *BMP [employer] [facility] Work Phone: Start: 05-02-2016 End: 05-02-2016 Cardioversion Cardioversion [facility] Work Phone: Start: 05-02-2016 End: 05-02-2016 GERDA LORENZ [facility] Work Phone: Start: 05-02-2016 End: 05-02-2016 Follow Up Appt 6 months Follow Up Appt 6 months [facility] Phone: Start: 05-02-2016 End: 05-06-2016 INR Coag RelTime (PPP) *PT/INR - Standing Order [employer] [facility] Work Phone: Start: 05-02-2016 End: 05-20-2016 Cardioversion Cardioversion [facility] Work Phone: Start: 05-02-2016 End: 05-06-2016 Coagulation factor induced.INR assay in platelet poor plasma *PT/INR - Standing Order [employer] Phone: Start: 05-02-2016 End: 05-02-2016 GERDA GERDA [facility] Work Phone: Start: 05-02-2016 End: 05-02-2016 Follow Up Appt 6 months Follow Up Appt 6 months [facility] Phone: Start: 01-18-2016 End: 04-28-2016 GERDA LORENZ [employer] Phone: Start: 01-18-2016 End: 01-21-2016 Ecg routine ecg w/least 12 lds w/i&r EKG (In office) [employer] Phone: Start: 01-18-2016 End: 01-18-2016 Echocardiography Echocardiogram (complete) [employer] Phone: Start: 01-18-2016 End: 04-28-2016 Follow Up Appt 3 months Follow Up Appt 3 months [facility] Phone: Start: 01-18-2016 End: 01-18-2016 INR Coag RelTime (PPP) *PT/INR [employer] Work Phone: Start: 01-18-2016 End: 01-18-2016 Coagulation factor induced.INR assay in platelet poor plasma *PT/INR [employer] Phone: Start: 01-18-2016 End: 04-28-2016 GERDA LORENZ [facility] Work Phone: Start: 01-18-2016 End: 01-18-2016 Echocardiography Echocardiogram (complete) [employer] Phone: Start: 01-18-2016 End: 01-21-2016 Electrocardiogram, complete EKG (In office) [facility] Work Phone: Start: 01-18-2016 End: 04-28-2016 Follow Up Appt 3 months Follow Up Appt 3 months [employer] Work Phone: Start: 08-17-2015 End: 08-17-2015 GERDA LORENZ [facility] Work Phone: Start: 08-17-2015 End: 08-17-2015 Ecg routine ecg w/least 12 lds w/i&r EKG (In office) [employer] Phone: Start: 08-17-2015 End: 08-17-2015 Follow Up Appt 6 months Follow Up Appt 6 months [employer] Work Phone: Start: 08-17-2015 End: 08-17-2015 GERDA LORENZ [facility] Work Phone: Start: 08-17-2015 End: 08-17-2015 Electrocardiogram, complete EKG (In office) [facility] Work Phone: Start: 08-17-2015 End: 08-17-2015 Follow Up Appt 6 months Follow Up Appt 6 months [employer] [facility] Work Phone: Start: 08-10-2015 End: 11-06-2015 *Hepatic Function Panel *Hepatic Function Panel [employer] [facility] Work Phone: Start: 08-10-2015 End: 11-06-2015 Lipid panel [AGGREGATE] *Lipid Profile CC PCP [facility] Work Phone: Start: 08-10-2015 End: 11-06-2015 *Hepatic Function Panel *Hepatic Function Panel [employer] [facility] Work Phone: Start: 08-10-2015 End: 11-06-2015 Lipid panel [AGGREGATE] *Lipid Profile CC PCP [employer] [facility] Work Phone: Start: 07-03-2015 End: 06-05-2015 Ecg routine ecg w/least 12 lds w/i&r EKG (In office) [facility] Work Phone: Start: 07-03-2015 End: 06-05-2015 Electrocardiogram, complete EKG (In office) [employer] [facility] Work Phone: Start: 06-19-2015 End: 06-22-2015 GERDA LORENZ [employer] [facility] Work Phone: Start: 06-19-2015 End: 06-22-2015 Follow Up Appt 3 months Follow Up Appt 3 months [employer] Work Phone: Start: 06-19-2015 End: 06-22-2015 GERDA LORENZ [employer] [facility] Work Phone: Start: 06-19-2015 End: 06-22-2015 Follow Up Appt 3 months Follow Up Appt 3 months [employer] [facility] Work Phone: Start: 06-09-2015 End: 06-22-2015 Follow Up BP Check Follow Up BP Check [employer] [facility] Work Phone: Start: 06-09-2015 End: 06-22-2015 Follow Up BP Check Follow Up BP Check [employer] [facility] Work Phone: Start: 06-05-2015 End: 06-22-2015 *BMP *BMP [employer] [facility] Work Phone: Start: 06-05-2015 End: 06-05-2015 Cardioversion Cardioversion [facility] Work Phone: Start: 06-05-2015 End: 06-22-2015 Chest x-ray X-Ray, Chest, PA & Lateral [facility] Work Phone: Start: 06-05-2015 End: 06-05-2015 Ecg routine ecg w/least 12 lds w/i&r EKG (In office) [facility] Work Phone: Start: 06-05-2015 End: 06-18-2015 INR Coag RelTime (PPP) *PT/INR [facility] Work Phone: Start: 06-05-2015 End: 06-22-2015 *BMP *BMP [facility] Work Phone: Start: 06-05-2015 End: 06-05-2015 Cardioversion Cardioversion [facility] Work Phone: Start: 06-05-2015 End: 06-22-2015 Chest x-ray X-Ray, Chest, PA & Lateral [facility] Work Phone: Start: 06-05-2015 End: 06-18-2015 Coagulation factor induced.INR assay in platelet poor plasma *PT/INR [facility] Work Phone: Start: 06-05-2015 End: 06-05-2015 Electrocardiogram, complete EKG (In office) [facility] Work Phone: Start: 06-01-2015 End: 06-05-2015 Thyroid stimulating hormone (TSH) *TSH [facility] Work Phone: Start: 06-01-2015 End: 06-05-2015 Thyroxine (T4) *T4 (Total) [facility] Work Phone: Start: 06-01-2015 End: 06-05-2015 Thyroid stimulating hormone (TSH) *TSH [facility] Work Phone: Start: 06-01-2015 End: 06-05-2015 Thyroxine (T4) *T4 (Total) [facility] Work Phone: Start: 03-30-2015 End: 03-30-2015 Ecg routine ecg w/least 12 lds w/i&r EKG (In office) [facility] Work Phone: Start: 03-30-2015 End: 03-30-2015 Electrocardiogram, complete EKG (In office) [facility] Work Phone: Start: 02-09-2015 End: 02-10-2015 Cardiac Rehab Cardiac Rehab [address] [place], [address] [facility] Work Phone: Start: 02-09-2015 End: 02-09-2015 DJJennie LORENZ [facility] Work Phone: Start: 02-09-2015 End: 02-09-2015 Follow Up Appt 6 months Follow Up Appt 6 months [facility] Work Phone: Start: 02-09-2015 End: 02-10-2015 Cardiac Rehab Cardiac Rehab [address] [place], [address] [facility] Work Phone: Start: 02-09-2015 End: 02-09-2015 DJJennie LORENZ [facility] Work Phone: Start: 02-09-2015 End: 02-09-2015 Follow Up Appt 6 months Follow Up Appt 6 months [facility] Work Phone: Start: 02-03-2015 End: 02-06-2015 *Hepatic Function Panel *Hepatic Function Panel [facility] Work Phone: Start: 02-03-2015 End: 02-06-2015 Lipid panel [AGGREGATE] *Lipid Profile CC PCP [facility] Work Phone: Start: 02-03-2015 End: 02-06-2015 *Hepatic Function Panel *Hepatic Function Panel [facility] Work Phone: Start: 02-03-2015 End: 02-06-2015 Lipid panel [AGGREGATE] *Lipid Profile CC PCP [facility] Work Phone: Start: 12-26-2014 End: 12-26-2014 Thoracic Surgery Referral Thoracic Surgery Referral Jaycob Nunez, [address] [place], [address] [facility] Work Phone: Start: 12-26-2014 End: 12-26-2014 Thoracic Surgery Referral Thoracic Surgery Referral Jaycob Nunez, [address] [place], [address] [facility] Work Phone: Start: 12-16-2014 End: 12-17-2014 *BMP *BMP [facility] Work Phone: Start: 12-16-2014 End: 12-16-2014 aPTT *PTT-Partial Thromboplastin Time [facility] Work Phone: Start: 12-16-2014 End: 12-16-2014 CBC W Auto Differential panel - Blood *CBC without Diff [facility] Work Phone: Start: 12-16-2014 End: 12-17-2014 Chest x-ray X-Ray, Chest, PA & Lateral [facility] Work Phone: Start: 12-16-2014 End: 12-16-2014 DJN DJN [facility] Work Phone: Start: 12-16-2014 End: 12-16-2014 Ecg routine ecg w/least 12 lds w/i&r EKG (In office) [facility] Work Phone: Start: 12-16-2014 End: 12-16-2014 Echocardiography Echocardiogram (complete) [facility] Work Phone: Start: 12-16-2014 End: 12-16-2014 Follow Up Appt 2 months Follow Up Appt 2 months [facility] Work Phone: Start: 12-16-2014 End: 12-16-2014 INR Coag RelTime (PPP) *PT/INR [facility] Work Phone: Start: 12-16-2014 End: 12-16-2014 Left & Right Heart Cath Left & Right Heart Cath [facility] Work Phone: Start: 12-16-2014 End: 12-16-2014 Transesophageal echocardiogram (CINTHIA) Transesophageal echocardiogram (CINTHIA) [facility] Work Phone: Start: 12-16-2014 End: 12-17-2014 *BMP *BMP [facility] Work Phone: Start: 12-16-2014 End: 12-16-2014 aPTT *PTT-Partial Thromboplastin Time [facility] Work Phone: Start: 12-16-2014 End: 12-16-2014 aPTT Coag time (PPP) *PTT-Partial Thromboplastin Time [facility] Work Phone: Start: 12-16-2014 End: 12-16-2014 CBC W Auto Differential panel - Blood *CBC without Diff [facility] Work Phone: Start: 12-16-2014 End: 12-17-2014 Chest x-ray X-Ray, Chest, PA & Lateral [facility] Work Phone: Start: 12-16-2014 End: 12-16-2014 Coagulation factor induced.INR assay in platelet poor plasma *PT/INR [facility] Work Phone: Start: 12-16-2014 End: 12-16-2014 DJN DJN [facility] Work Phone: Start: 12-16-2014 End: 12-16-2014 Echocardiography Echocardiogram (complete) [facility] Work Phone: Start: 12-16-2014 End: 12-16-2014 Electrocardiogram, complete EKG (In office) [facility] Work Phone: Start: 12-16-2014 End: 12-16-2014 Follow Up Appt 2 months Follow Up Appt 2 months [facility] Work Phone: Start: 12-16-2014 End: 12-16-2014 Left & Right Heart Cath Left & Right Heart Cath [facility] Work Phone: Start: 12-16-2014 End: 12-16-2014 Transesophageal echocardiogram (CINTHIA) Transesophageal echocardiogram (CINTHIA) [employer] [facility] Work Phone: Start: 07-21-2014 End: 08-04-2014 *Hepatic Function Panel *Hepatic Function Panel [facility] Work Phone: Start: 07-21-2014 End: 08-04-2014 Lipid panel [AGGREGATE] *Lipid Profile CC PCP [facility] Work Phone: Start: 07-21-2014 End: 08-04-2014 *Hepatic Function Panel *Hepatic Function Panel [facility] Work Phone: Start: 07-21-2014 End: 08-04-2014 Lipid panel [AGGREGATE] *Lipid Profile CC PCP [facility] Work Phone: Start: 07-07-2014 End: 07-07-2014 DJN DJN [facility] Work Phone: Start: 07-07-2014 End: 07-07-2014 Follow Up Appt 6 months Follow Up Appt 6 months [facility] Work Phone: Start: 07-07-2014 End: 07-07-2014 DJN DJN [employer] [facility] Work Phone: Start: 07-07-2014 End: 07-07-2014 Follow Up Appt 6 months Follow Up Appt 6 months [facility] Work Phone: Start: 06-03-2014 End: 06-03-2014 Echocardiography Echocardiogram (complete) [facility] Work Phone: Start: 06-02-2014 End: 06-02-2014 DJN DJN [facility] Work Phone: Start: 06-02-2014 End: 06-03-2014 Echocardiography Echocardiogram (complete) [facility] Work Phone: Start: 06-02-2014 End: 06-02-2014 Follow Up Appt 6 months Follow Up Appt 6 months [facility] Work Phone: Start: 06-02-2014 End: 06-02-2014 Stress Echocardiogram (treadmill) Stress Echocardiogram (treadmill) [employer] [facility] Work Phone: Start: 06-02-2014 End: 06-02-2014 r mobile cv telemetry w/i&report 30 days 30 Day Holter Monitor [facility] Work Phone: Start: 06-02-2014 End: 06-02-2014 GERDA GERDA [facility] Work Phone: Start: 06-02-2014 End: 06-02-2014 Echocardiography Echocardiogram (complete) [employer] Phone: Start: 06-02-2014 End: 06-02-2014 Follow Up Appt 6 months Follow Up Appt 6 months [facility] Phone: Start: 06-02-2014 End: 06-02-2014 Remote 30 day ecg rev/report 30 Day Holter Monitor [employer] Phone: Start: 06-02-2014 End: 06-02-2014 Stress Echocardiogram (treadmill) Stress Echocardiogram (treadmill) [employer] Phone: Start: 01-27-2014 End: 01-27-2014 GERDA GERDA [employer] Phone: Start: 01-27-2014 End: 01-27-2014 Echocardiography Echocardiogram (complete) [employer] Phone: Start: 01-27-2014 End: 01-27-2014 Follow Up Appt 1 year Follow Up Appt 1 year [employer] [facility] Work Phone: Start: 01-27-2014 End: 01-27-2014 GERDA GERDA [facility] Work Phone: Start: 01-27-2014 End: 01-27-2014 Echocardiography Echocardiogram (complete) [employer] Phone: Start: 01-27-2014 End: 01-27-2014 Follow Up Appt 1 year Follow Up Appt 1 year [facility] Work Phone: Start: 09-20-2013 End: 12-09-2013 *Hepatic Function Panel *Hepatic Function Panel [facility] Phone: Start: 09-20-2013 End: 12-09-2013 Lipid panel [AGGREGATE] *Lipid Profile CC PCP [employer] Phone: Start: 09-20-2013 End: 12-09-2013 *Hepatic Function Panel *Hepatic Function Panel [facility] Phone: Start: 09-20-2013 End: 12-09-2013 Lipid panel [AGGREGATE] *Lipid Profile CC PCP [facility] Work Phone: Start: 02-20-2013 End: 04-02-2013 *Hepatic Function Panel *Hepatic Function Panel [facility] Work Phone: Start: 02-20-2013 End: 04-02-2013 Lipid panel [AGGREGATE] *Lipid Profile CC PCP [facility] Work Phone: Start: 02-20-2013 End: 04-02-2013 *Hepatic Function Panel *Hepatic Function Panel [facility] Work Phone: Start: 02-20-2013 End: 04-02-2013 Lipid panel [AGGREGATE] *Lipid Profile CC PCP [facility] Work Phone: Start: 01-29-2013 End: 01-29-2013 DJN DJN [facility] Work Phone: Start: 01-29-2013 End: 01-29-2013 Echocardiography Echocardiogram (complete) [facility] Work Phone: Start: 01-29-2013 End: 01-29-2013 Follow Up Appt 1 year Follow Up Appt 1 year [facility] Work Phone: Start: 01-29-2013 End: 01-29-2013 DJN DJN [facility] Work Phone: Start: 01-29-2013 End: 01-29-2013 Echocardiography Echocardiogram (complete) [facility] Work Phone: Start: 01-29-2013 End: 01-29-2013 Follow Up Appt 1 year Follow Up Appt 1 year [facility] Work Phone: Start: 08-08-2012 End: 08-29-2012 *Hepatic Function Panel *Hepatic Function Panel [facility] Work Phone: Start: 08-08-2012 End: 08-29-2012 Lipid panel [AGGREGATE] *Lipid Profile [facility] Work Phone: Start: 08-08-2012 End: 08-29-2012 *Hepatic Function Panel *Hepatic Function Panel [facility] Work Phone: Start: 08-08-2012 End: 08-29-2012 Lipid panel [AGGREGATE] *Lipid Profile [facility] Work Phone: Start: 01-25-2012 End: 06-22-2012 *Hepatic Function Panel *Hepatic Function Panel [facility] Work Phone: Start: 01-25-2012 End: 06-22-2012 Lipid panel [AGGREGATE] *Lipid Profile [facility] Work Phone: Start: 01-25-2012 End: 06-22-2012 *Hepatic Function Panel *Hepatic Function Panel [facility] Work Phone: Start: 01-25-2012 End: 06-22-2012 Lipid panel [AGGREGATE] *Lipid Profile [facility] Work Phone: Start: 01-23-2012 End: 01-24-2012 Ecg routine ecg w/least 12 lds w/i&r EKG (In office) [facility] Work Phone: Start: 01-23-2012 End: 01-23-2012 Follow Up Appt 1 year Follow Up Appt 1 year [facility] Work Phone: Start: 01-23-2012 End: 01-24-2012 Electrocardiogram, complete EKG (In office) [facility] Work Phone: Start: 01-23-2012 End: 01-23-2012 Follow Up Appt 1 year Follow Up Appt 1 year [facility] Work Phone: Start: 07-26-2011 End: 08-01-2011 Echocardiography Echocardiogram (complete) [facility] Work Phone: Start: 07-26-2011 End: 07-26-2011 Follow Up Appt 6 months Follow Up Appt 6 months [facility] Work Phone: Start: 07-26-2011 End: 08-01-2011 Echocardiography Echocardiogram (complete) [facility] Work Phone: Start: 07-26-2011 End: 07-26-2011 Follow Up Appt 6 months Follow Up Appt 6 months [facility] Work Phone: Start: 06-27-2011 End: 06-30-2011 *Hepatic Function Panel *Hepatic Function Panel [facility] Work Phone: Start: 06-27-2011 End: 06-30-2011 Lipid panel [AGGREGATE] *Lipid Profile [facility] Work Phone: Start: 06-27-2011 End: 06-30-2011 *Hepatic Function Panel *Hepatic Function Panel [facility] Work Phone: Start: 06-27-2011 End: 06-30-2011 Lipid panel [AGGREGATE] *Lipid Profile [facility] Work Phone: Start: 04-25-2011 End: 04-25-2011 INR Coag RelTime (PPP) *PT/INR [facility] Work Phone: Start: 04-25-2011 End: 04-25-2011 Coagulation factor induced.INR assay in platelet poor plasma *PT/INR [facility] Work Phone: 24 Hour ECG [facility] Alanine aminotransfe rase [Enzymatic activity/volume] in Serum or Plasma [facility] Aspartate aminotrans ferase [Enzymatic activity/volume] in Serum or Plasma [facility] Comprehensive metabo lic 2000 panel - Serum or Plasma [facility] DXA Bone [Mass/Area] Bone density [facility] Work Phone: Magnesium measurement [facility] Measurement of respi ratory function [facility] MG Breast - bilatera l Screening [facility] Work Phone: MR Lumbar spine [facility] Work Phone: Patient Education [facility] Work Phone: Patient referral [facility] Work Phone: Thyroid stimulating hormone measurement [facility] [facility] Immunizations Immunization Date Immunization Notes Care Provider Sonia miguel 12-23-2021 Influenza, high dose seasonal Mireille Garnica MD Work Phone: [facility] 12-23-2021 influenza, high dose seasonal, preservative-free No Primary Care Physician [facility] 02-02-2021 influenza, injectabl e, quadrivalent, preservative free Dr. Marian Jackson Work Phone: [facility] 02-02-2021 influenza, seasonal, injectable Dr. Alfa Oakes Work Phone: [facility] 06-05-2020 Covid (Moderna) Dr. Alfa kraft Work Phone: [facility] 05-08-2020 Covid (Moderna) Dr. Alfa kraft Work Phone: [facility] 12-27-2019 influenza, injectabl e, quadrivalent, preservative free Dr. Marian Jackson Work Phone: [facility] 12-27-2019 influenza, seasonal, injectable Dr. Alfa Oakes Work Phone: [facility] 12-20-2019 influenza, injectabl e, quadrivalent, preservative free Dr. Marian Jackson Work Phone: [facility] 12-20-2019 influenza, seasonal, injectable Dr. Alfa Oakes Work Phone: [facility] 12-07-2018 influenza, injectabl e, quadrivalent, preservative free Dr. Marian Jackson Work Phone: [facility] 12-07-2018 influenza, seasonal, injectable Dr. Alfa Oakes Work Phone: [facility] 11-29-[address] Alfa Oakes Work Phone: [facility] 12-07-2017 influenza, injectabl e, quadrivalent, preservative free Dr. Marian Jackson Work Phone: [facility] 12-07-2017 influenza, seasonal, injectable Dr. Alfa Oakes Work Phone: [facility] 12-07-2017 pneumococcal conjuga te vaccine, [address] Alfa Oakes Work Phone: [facility] 01-06-2017 influenza, injectabl e, quadrivalent, preservative free Dr. Marian Jackson Work Phone: [facility] 01-06-2017 influenza, seasonal, injectable Dr. Alfa Oakes Work Phone: [facility] 12-22-2015 influenza, injectabl e, quadrivalent, preservative free Dr. Marian Jackson Work Phone: [facility] 12-22-2015 influenza, seasonal, injectable Dr. Alfa Oakes Work Phone: [facility] 12-22-2014 influenza, injectabl e, quadrivalent, preservative free Dr. Marian Jackson Work Phone: [facility] 12-22-2014 influenza, seasonal, injectable Dr. Alfa Oakes Work Phone: [facility] 12-13-2012 influenza, injectabl e, quadrivalent, preservative free Dr. Marian Jackson Work Phone: [facility] 12-13-2012 influenza, seasonal, injectable Dr. Alfa Oakes Work Phone: [facility] 12-30-2011 influenza, injectabl e, quadrivalent, preservative free Dr. Marian Jackson Work Phone: [facility] 12-30-2011 influenza, seasonal, injectable Dr. Alfa Oakes Work Phone: [facility] Payers Date Payer Category Payer Unknown [id number] 2024 Private Health Insurance [id number] 2023 Self-pay [id number] 2020 Private Health Insurance [facility] [id number] 2016 Unknown [id number] 2003 Unknown [id number] 1940 Unknown [id number] 2.16.8 40.1.988272.3.579.2.627 1940 Unknown [id number] 2.16.8 40.1.072845.3.579.2.627 Unknown [id number] 2.16.8 40.1.551840.3.579.2.462 Unknown [id number] 2.16.8 40.1.198865.3.579.2.462 Unknown [id number] 2.16.8 40.1.727773.3.579.2.462 Unknown [id number] 2.16.8 40.1.305160.3.579.2.462 Unknown [id number] 2.16.8 40.1.825519.3.579.2.462 Unknown [id number] 2.16.8 40.1.448782.3.579.2.462 Unknown [id number] 2.16.8 40.1.550495.3.579.2.462 Unknown [id number] 2.16.8 40.1.789544.3.579.2.462 Unknown [id number] 2.16.8 40.1.425132.3.579.2.462 Unknown [id number] 2.16.8 40.1.222129.3.579.2.462 Unknown [id number] 2.16.8 40.1.916718.3.579.2.462 Unknown [id number] 2.16.8 40.1.621390.3.579.2.462 Unknown [id number] 2.16.8 40.1.611913.3.579.2.462 Unknown [id number] 2.16.8 40.1.965004.3.579.2.462 Unknown [id number] 2.16.8 40.1.124359.3.579.2.462 Unknown [id number] 2.16.8 40.1.735764.3.579.2.462 Unknown [id number] 2.16.8 40.1.049306.3.579.2.462 Unknown [id number] 2.16.8 40.1.418754.3.579.2.462 Unknown [id number] 2.16.8 40.1.177964.3.579.2.462 Unknown [id number] 2.16.8 40.1.700870.3.579.2.462 Unknown [id number] 2.16.8 40.1.254774.3.579.2.462 Unknown [id number] 2.16.8 40.1.259810.3.579.2.462 Unknown [id number] 2.16.8 40.1.858201.3.579.2.462 Unknown [id number] 2.16.8 40.1.296605.3.579.2.462 Unknown [id number] 2.16.8 40.1.047511.3.579.2.462 Unknown [id number] 2.16.8 40.1.962715.3.579.2.462 Unknown [id number] 2.16.8 40.1.935351.3.579.2.462 Social History Date Type Detail Facility Start: 12-21-2020 End: 01-17-2023 Tobacco smoking status IAIS Unknown if ever smoked [facility] Start: 12-28-2018 Non-smoker [facility] Start: 1940 Sex Assigned At Female [facility] Start: 05-07-2024 End: 05-22-2024 Tobacco smoking status NHIS Never smoked tobacco (finding) [facility] Start: 01-16-2015 End: 05-20-2024 Sex Female (finding) [facility] Sexual Orientation Moira Janeth teixeira Medical Equipment Procedure Code Equipment Code Equipment Origin al Text Equipment Identifier Dates [facility] heart valve FDA Start: 07-12-2000 [facility] heart valve FDA Start: 07-12-2000 [facility] heart valve FDA Start: 07-12-2000 [facility] heart valve FDA Start: 07-12-2000 [facility] heart valve FDA Start: 07-12-2000 [facility] heart valve FDA Start: 07-12-2000 [facility] heart valve FDA Start: 07-12-2000 [facility] heart valve FDA Start: 07-12-2000 [facility] heart valve FDA Start: 07-12-2000 [facility] heart valve FDA Start: 07-12-2000 [facility] heart valve FDA Start: 07-12-2000 [facility] heart valve FDA Start: 07-12-2000 [facility] heart valve FDA Start: 07-12-2000 [facility] heart valve FDA Start: 07-12-2000 [facility] heart valve FDA Start: 07-12-2000 [facility] heart valve FDA Start: 07-12-2000 [facility] heart valve FDA Start: 07-12-2000 [facility] prost[facility] heart valve FDA Start: 07-12-2000 [facility] heart valve FDA Start: 07-12-2000 [facility] heart valve FDA Start: 07-12-2000 [facility] heart valve FDA Start: 07-12-2000 [facility] prost[facility] heart valve FDA Start: 07-12-2000 [facility] prost[facility] heart valve FDA Start: 07-12-2000 [facility] heart valve FDA Start: 07-12-2000 [facility] prost[facility] heart valve FDA Start: 07-12-2000 Functional Status Date Assessment Result Facility 07-02-2024 Functional Status Room check performed [facility] 07-02-2024 Functional Status [facility] 07-02-2024 Functional Status [facility] 07-01-2024 Functional Status Hospital bed [facility] 07-01-2024 Functional Status Patient Identi fied Identification band, Verbal [facility] 07-01-2024 Functional Status Maintained [facility] 06-17-2024 Functional Status Sensory Deficits None A [facility] Mental Status Date Assessment Result Facility 07-02-2024 Mental Status Oriented x 4 [facility] 07-02-2024 Mental Status [facility] 07-01-2024 Mental Status Orientation Asse ssment Oriented x 4 [facility] 02-10-2024 Cognitive function Level Of Cons ciousness Awake;Alert;Appropriate [facility] Work Phone: Clinical Notes 07-12-2000 to 07-02-2024 Note Date & Type Note Facility 07-02-2024 Hospital Discharg e instructions Patient Education 07/02/2024 08:40:23 3-- EP Study/Ablation (11/2017) (CUSTOM) ELECTROPHYSIOLOGY STUDY/ABLATION Discharge Instructions DIET INSTRUCTIONS Resume diet as prior to procedure ACTIVITIES Do not drive FOR 24 HOURS No heavy lifting GREATER THAN 10 POUNDS or pushing or straining FOR 4 DAYS BATHING/SHOWERING May tub bathe in 4 days Do not sit in hot tub, whirlpool, or swim for 4 days May shower today WOUND CARE You may go home with a Band-Aid over your procedure site. Keep this Band-Aid on for the next 24 hours and then remove it leaving the site open to air. Some degree of bruising and tenderness is normal around the procedure site. It will take a while for any bruising to completely resolve. Keep your site clean and dry. You need to report the following to your pug machine operator: ?Any draining or oozing from the site ?Any swelling at the site ?Any increased pain or tenderness at the site ?Any numbness in your leg where the procedure was done ?Any sign of infection WATCH FOR SIGNS OF INFECTION: Elevated temperature above 100.5 Redness or swelling Increased pain Foul odor or drainage. If you have any questions, please call your doctor at the number listed on your follow up instructions. Follow all instructions given to you by your physician. Document Released: 02/06/2006 Document Revised: 01/23/2013 Document Reviewed: 02/07/2014 ExitCare Patient Information 2015 [employer] This information is not intended to replace advice given to you by your health care provider. Make sure you discuss any questions you have with your health care provider. Follow Up Care 05/22/2024 16:26:38 With:EMMANUEL DE LA CRUZ MD Address: [address] [place] [address] [address] [facility] [place] [address]- [phone] When:08/21/2024 14:45:00 [facility] 07-02-2024 Discharge summary Date of Service 07/02/2022 Discharge Diagnosis Persistent atrial fibrillation Hospital Course 83-year-old female with past medical significant for persistent atrial fibrillation. She underwent successful pulmonary vein and posterior wall isolation on 07/01/2022 tolerating the procedure well. She will be discharged home to follow as an outpatient. Allergies Latex Rash penicillin Unknown Procedures Pulmonary vein and posterior wall isolation. 07/01/2022 Consults No qualifying data available. Physical Exam Vitals and Measurements T: 36.3 C (Skin) TMIN: 35.88 C TMAX: 36.6 C (Oral) HR: 70 RR: 12 BP: 123/62 SpO2: 96% HT: 157.5 cm WT: 61.6 kg Weight Dosing Weight: 61.6 kg (07/01/24) Physical Exam: General: well appearing, no acute distress Respiratory: normal chest wall expansion, CTA B, no r/r/w, no rubs Cardiovascular: RRR, no m/r/g, Normal S1 and S2 Abdomen: Soft, non-tender, non-distended, normal bowel sounds in all quadrants, no hepatosplenomegaly, no tympany Integumentary: warm, dry, and pink, with no rash, purpura, or petechia Neurological: 2+ patellar reflexes, Cranial Nerves II-XII grossly intact, no tics, normal sensation to pressure and light touch Code Status No qualifying data available. Admission Date 07/01/2022 Discharge Date 07/02/2022 Medications Changed furosemide (furosemide 40 mg oral tablet)1 tab(s) by mouth two (2) times a day. Unchanged acetaminophen (Tylenol 8 HR Arthritis Pain 650 mg oral tablet, extended release)2 tab(s) by mouth two (2) times a day. amiodarone (amiodarone 200 mg oral tablet)1 tab(s) by mouth once a day (in the morning). ascorbic acid (Vitamin C 250 mg oral tablet)2 tab(s) by mouth once a day. aspirin (Aspirin EC 81 mg oral delayed release tablet)1 tab(s) by mouth once a day. cholecalciferol (cholecalciferol 125 mcg (5000 intl units) oral capsule)1 cap by mouth once a day. losartan (losartan 25 mg oral tablet)1 tab(s) by mouth every day. simvastatin (simvastatin 20 mg oral tablet)1 tab(s) by mouth daily at bedtime. warfarin (warfarin 1 mg oral tablet)1.5 tab(s) by mouth once a day. Follow Up Follow Up with EMMANUEL DE LA CRUZ MD When:08/21/2024 02:45 PM EDT Where:[address] [facility] [address] [place] [address]- [phone] Follow Up Appointments No qualifying data available. Follow Up Labs/Studies Discharge Labs No Follow-up Labs Discharge Studies No Follow-up Studies Discharge Diet Discharge Diet - Ordered -- No changes were made to your diet during your hospital stay. Please resume your pre hospitalization diet on discharge., 07/02/24 15:29:00 EDT Discharge Activity Discharge Activity - Ordered -- Resume your pre-hospitalization activity, 07/02/24 15:29:00 EDT Condition on Discharge Good Discharge Disposition Home Digitally Signed by EMMANUEL DE LA CRUZ MD on 07/02/2024 10:33 AM [facility] 07-02-2024 Summary of episod e note Discharge Instructions Thank you for allowing [facility] to assist you with your healthcare needs. The following is important discharge information regarding your hospital visit. Your Care Team MIREILLE GARNICA MD What to do next Scheduled Follow-Up Appointments Appointment Type When With Where Contact Information StatusCV OV 08/21/2024 02:45 PM EDT DIA DE LA CRUZ [facility] Confirmed Follow Up Appointments Follow Up with EMMANUEL DE LA CRUZ MD When:08/21/2024 02:45 PM EDT Where:[address] [facility] [address] [facility] [place] [address]- [phone] Allergies Latex Rash penicillin Unknown Medications Please ask your primary doctor or pharmacist before taking any other medication not listed, including over the counter drugs, herbal medications, vitamins and or supplements as they may interact with your home medications. What How Much When Instructions Last Dose Changed furosemide (furosemide 40 mg oral tablet) 1 tab(s) by mouth Two (2) times a day Unchanged acetaminophen (Tylenol 8 HR Arthritis Pain 650 mg oral tablet, extended release) 2 tab(s) by mouth Two (2) times a day Unchanged amiodarone (amiodarone 200 mg oral tablet) 1 tab(s) by mouth Once a day (in the morning) Unchanged ascorbic acid (Vitamin C 250 mg oral tablet) 2 tab(s) by mouth Once a day Unchanged aspirin (Aspirin EC 81 mg oral delayed release tablet) 1 tab(s) by mouth Once a day Unchanged cholecalciferol (cholecalciferol 125 mcg (5000 intl units) oral capsule) 1 cap by mouth Once a day Unchanged losartan (losartan 25 mg oral tablet) 1 tab(s) by mouth Every day Unchanged simvastatin (simvastatin 20 mg oral tablet) 1 tab(s) by mouth Daily at bedtime Unchanged warfarin (warfarin 1 mg oral tablet) 1.5 tab(s) by mouth Once a day Please take this list to your next doctor s visit. Bring all medications you take, including over the counter medications, herbals and other supplements with you to your doctor s visit. Patients and families are reminded to discard old lists and to update any records with all medication providers or retail pharmacies. Education Materials ELECTROPHYSIOLOGY STUDY/ABLATION Discharge Instructions DIET INSTRUCTIONS Resume diet as prior to procedure ACTIVITIES Do not drive FOR 24 HOURS No heavy lifting GREATER THAN 10 POUNDS or pushing or straining FOR 4 DAYS BATHING/SHOWERING May tub bathe in 4 days Do not sit in hot tub, whirlpool, or swim for 4 days May shower today WOUND CARE You may go home with a Band-Aid over your procedure site. Keep this Band-Aid on for the next 24 hours and then remove it leaving the site open to air. Some degree of bruising and tenderness is normal around the procedure site. It will take a while for any bruising to completely resolve. Keep your site clean and dry. You need to report the following to your pug machine operator: ? Any draining or oozing from the site ? Any swelling at the site ? Any increased pain or tenderness at the site ? Any numbness in your leg where the procedure was done ? Any sign of infection WATCH FOR SIGNS OF INFECTION: Elevated temperature above 100.5 Redness or swelling Increased pain Foul odor or drainage. If you have any questions, please call your doctor at the number listed on your follow up instructions. Follow all instructions given to you by your physician. Document Released: 02/06/2006 Document Revised: 01/23/2013 Document Reviewed: 02/07/2014 ExitCare Patient Information 2015 [employer] This information is not intended to replace advice given to you by your health care provider. Make sure you discuss any questions you have with your health care provider. Additional Information VACCINATE! IT SAVES LIVES! Members of the community who have not yet received the COVID-19 vaccine and would like to receive it can visit one of [facility] vaccine clinics. There are many vaccine clinic locations within the [facility]. For locations and available times, please visit https://gettheshot.coronavirus.o hio.gov/. It is important to note that some COVID mobile vaccine clinics are held outdoors and may be canceled in rainy or stormy conditions. To learn more about pediatric vaccinations (ages 5-11), we invite you to visit the [facility] webpage. [email or web address].[email or web address].org/p [email or web address]-Pqdlx-[email or web address] [email or web address].[email or web address] To learn more about the COVID-19 vaccine, we invite you to visit the CDC website for a list of frequently asked questions.https://www.cdc.gov/co ronavirus/2019-ncov/vaccines/faq .html [facility] Patient Portal Access Instructions: Stay connected with your healthcare team and access your personal medical information anytime with the [employer] Patient Portal. Please follow the directions below to create your [employer] account: 1.Access the email account you provided upon registration to the hospital/physician office.2.Look for an invitation email from [facility].3.Open the email and access the invitation link: Accept Invitation to [employer].4.Fill in the required shaikh to create your account. To access your account, visit [email or web address]. Click the blue button labeled Access Patient Portal and then log in with the username and password that you created in the steps above. You will be able to view your test results, lab results, a summary of your visits, upcoming appointments and more. There is also a convenient messaging option where you can send secure messages to your provider. In addition, you will have the ability to download any documents or summaries to your computer and/or send the information securely to a physician. Remember that your healthcare information is confidential, so carefully consider who you will allow to register on the [facility] Patient Portal for access to your information. You can also access the [facility] Patient Portal on the [employer] angela. Simply click on Patient Portal and then log into your account. If you would like to receive a full copy of your medical records, please contact the [facility] Medical Records Department by calling [phone], Monday through Monday between 8 a.m. and 4:30 p.m. HOW TO SAFELY DISPOSE OF PRESCRIPTION MEDICATIONS Please use one of the following methods to safely dispose of your unused medications. 1.Use a drug disposal kit: the drug disposal pouch allows you to safely discard your old and unused drugs. Ask your nurse to give you one when you are discharged.2.Visit a local take-back location: Many local pharmacies and police departments have programs that collect old and unwanted prescription drugs. Call your local pharmacy or go to http://ShangPin.Skip Hop/9X7Br1d to find one close to you.3.Make use of household items: Use cat litter or old coffee grounds to dispose medications if other options are not available. Mix your drugs with these household products, seal them in an airtight container and throw it into the garbage. Call [facility]: [phone] to be sure your drugs can be disposed of in this way. Some medicines may require a different approach.4.Never flush your medications down the toilet. IF YOU HAVE BEEN PRESCRIBED AN OPIOID FOR PAIN If you have been prescribed an opioid (such as hydrocodone, oxycodone or morphine), it is critical to understand the possible side effects and risks of opioid pain medications. Even when taken as directed, opioids can have several side effects including: Tolerance, meaning you might need to take more of a medication for the same pain relief. Nausea, vomiting and/or constipation. Sleepiness, dizziness, dry mouth, confusion, depression or itching. Physical dependence, meaning you have withdrawal symptoms when a medication is stopped, can develop within a few days. KNOW YOUR RESPONSIBILITIES It is important to know exactly how much and how often to take the opioid pain medications you are prescribed. Never take opioids in higher amounts or more often than prescribed. Do not combine opioids with alcohol or other drugs that cause drowsiness, such as benzodiazepines, also known as benzos, including diazepam and alprazolam, muscle relaxants or sleep aids. Never sell or share prescription opioids. This is illegal. Store opioids in a secure place and out of reach of others (including children, family, friends and visitors). The last page of this document has been signed and retained as a CHART COPY. Signatures Patient Education Materials 3-- EP Study/Ablation (11/2017) (CUSTOM) Medication Leaflets My discharge plan and instructions have been reviewed and explained to me and I,MARCELLA DONNA I understand my current condition and have read and understand these discharge instructions. I have received a written copy of the plan/instructions. If I have questions, I am aware that I should contact my doctor. Patient/Service Dispatcher Signature: Date/Time: Relationship to Patient: Witness Name/Signature: Date/Time: [facility] 07-02-2024 Note Exam Date Time Procedure Performing Provider Status 07/02/24 4:07 AM Electrocardiogram - EKG - CV TATIANA POE MD; Auth (Verified) ECG Final Report SINUS RHYTHM WITH FIRST DEGREE AV BLOCK LEFT ANTERIOR FASCICULAR BLOCK POOR R-WAVE PROGRESSION Electronic Signature: ALFA POE MD 07/02/2024 23:18:03 [id number] Anesthesiology Consult note Patient: DONNA NARANJO I Age: 83 years Sex: Female : 1940 Associated Diagnoses: None Author: LINA ALCANTARA DO Postoperative Information Post Operative Info: Post op day: Post Anesthesia Care Unit. Patient location: PACU. Assessment Postanesthesia assessment Vitals: Vital signs from flowsheet : Vital Signs 07/01/2024 19:41 EDT Temperature Skin 36.5 DegC Heart Rate Monitored 60 bpm Respiratory Rate 16 br/min Systolic Blood Pressure Non-Invasive 119 mmHg Diastolic Blood Pressure Non-Invasive 52 mmHg LOW Reason For Taking VItal Signs Routine 07/01/2024 15:40 EDT Heart Rate Monitored 52 bpm LOW Respiratory Rate 16 br/min Systolic Blood Pressure Non-Invasive 127 mmHg Diastolic Blood Pressure Non-Invasive 51 mmHg LOW 07/01/2024 15:27 EDT Respiratory Rate 16 br/min Systolic Blood Pressure Non-Invasive 128 mmHg Diastolic Blood Pressure Non-Invasive 37 mmHg 07/01/2024 15:22 EDT Heart Rate Monitored 53 bpm LOW Respiratory Rate 16 br/min 07/01/2024 15:14 EDT Heart Rate Monitored 51 bpm LOW Respiratory Rate 18 br/min Systolic Blood Pressure Non-Invasive 133 mmHg Diastolic Blood Pressure Non-Invasive 41 mmHg 07/01/2024 14:55 EDT Heart Rate Monitored 55 bpm LOW Respiratory Rate 14 br/min Systolic Blood Pressure Non-Invasive 125 mmHg Diastolic Blood Pressure Non-Invasive 47 mmHg 07/01/2024 14:50 EDT Temperature Skin 35.9 DegC Heart Rate Monitored 54 bpm LOW Respiratory Rate 16 br/min Systolic Blood Pressure Non-Invasive 126 mmHg Diastolic Blood Pressure Non-Invasive 41 mmHg 07/01/2024 14:40 EDT Heart Rate Monitored 49 bpm bpm Respiratory Rate - Anes 11 br/min br/min 07/01/2024 14:35 EDT Temperature (Route Not Specified) 35.96 DegC DegC Heart Rate Monitored 47 bpm bpm Respiratory Rate - Anes 12 br/min br/min 07/01/2024 14:30 EDT Temperature (Route Not Specified) 35.97 DegC DegC Heart Rate Monitored 48 bpm bpm Respiratory Rate - Anes 12 br/min br/min 07/01/2024 14:26 EDT Systolic Blood Pressure Non-Invasive 104 mmHg mmHg Diastolic Blood Pressure Non-Invasive 57 mmHg mmHg 07/01/2024 14:25 EDT Temperature (Route Not Specified) 35.92 DegC DegC Heart Rate Monitored 79 bpm bpm Respiratory Rate - Anes 12 br/min br/min 07/01/2024 14:20 EDT Temperature (Route Not Specified) 35.93 DegC DegC Heart Rate Monitored 81 bpm bpm Respiratory Rate - Anes 12 br/min br/min 07/01/2024 14:15 EDT Temperature (Route Not Specified) 35.98 DegC DegC Heart Rate Monitored 81 bpm bpm Respiratory Rate - Anes 12 br/min br/min 07/01/2024 14:10 EDT Temperature (Route Not Specified) 35.93 DegC DegC Heart Rate Monitored 83 bpm bpm Respiratory Rate - Anes 12 br/min br/min 07/01/2024 14:05 EDT Temperature (Route Not Specified) 35.88 DegC DegC Heart Rate Monitored 81 bpm bpm Respiratory Rate - Anes 12 br/min br/min 07/01/2024 14:00 EDT Temperature (Route Not Specified) 35.89 DegC DegC Heart Rate Monitored 81 bpm bpm Respiratory Rate - Anes 12 br/min br/min 07/01/2024 13:55 EDT Temperature (Route Not Specified) 35.95 DegC DegC Heart Rate Monitored 83 bpm bpm Respiratory Rate - Anes 12 br/min br/min 07/01/2024 13:50 EDT Temperature (Route Not Specified) 35.97 DegC DegC Heart Rate Monitored 82 bpm bpm Respiratory Rate - Anes 12 br/min br/min 07/01/2024 13:45 EDT Temperature (Route Not Specified) 35.94 DegC DegC Heart Rate Monitored 95 bpm bpm Respiratory Rate - Anes 10 br/min br/min 07/01/2024 13:40 EDT Temperature (Route Not Specified) 35.89 DegC DegC Heart Rate Monitored 80 bpm bpm Respiratory Rate - Anes 10 br/min br/min 07/01/2024 13:35 EDT Temperature (Route Not Specified) 35.92 DegC DegC Heart Rate Monitored 80 bpm bpm Respiratory Rate - Anes 10 br/min br/min 07/01/2024 13:30 EDT Temperature (Route Not Specified) 35.94 DegC DegC Heart Rate Monitored 83 bpm bpm Respiratory Rate - Anes 10 br/min br/min 07/01/2024 13:25 EDT Temperature (Route Not Specified) 35.98 DegC DegC Heart Rate Monitored 82 bpm bpm Respiratory Rate - Anes 10 br/min br/min 07/01/2024 13:20 EDT Temperature (Route Not Specified) 36.1 DegC DegC Heart Rate Monitored 85 bpm bpm Respiratory Rate - Anes 10 br/min br/min 07/01/2024 13:16 EDT Systolic Blood Pressure Non-Invasive 103 mmHg mmHg Diastolic Blood Pressure Non-Invasive 69 mmHg mmHg 07/01/2024 13:15 EDT Temperature (Route Not Specified) 36.16 DegC DegC Heart Rate Monitored 86 bpm bpm Respiratory Rate - Anes 10 br/min br/min 07/01/2024 13:11 EDT Systolic Blood Pressure Non-Invasive 129 mmHg mmHg Diastolic Blood Pressure Non-Invasive 106 mmHg mmHg 07/01/2024 13:10 EDT Heart Rate Monitored 111 bpm bpm Respiratory Rate - Anes 9 br/min br/min 07/01/2024 13:08 EDT Systolic Blood Pressure Non-Invasive 103 mmHg mmHg Diastolic Blood Pressure Non-Invasive 65 mmHg mmHg 07/01/2024 13:06 EDT Systolic Blood Pressure Non-Invasive 127 mmHg mmHg Diastolic Blood Pressure Non-Invasive 79 mmHg mmHg 07/01/2024 13:05 EDT Heart Rate Monitored 82 bpm bpm Respiratory Rate - Anes 0 br/min br/min 07/01/2024 11:05 EDT Temperature Oral 36.6 DegC Apical Heart Rate 108 bpm HI Respiratory Rate 18 br/min Systolic Blood Pressure Non-Invasive 122 mmHg Diastolic Blood Pressure Non-Invasive 70 mmHg , Oxygen Therapy : Oxygen Therapy & Oxygenation Information 07/01/2024 19:41 EDT Oxygen Therapy Room air Oxygen Saturation 96 % 07/01/2024 19:00 EDT Oxygen Therapy Room air 07/01/2024 18:50 EDT Oxygen Therapy Room air 07/01/2024 18:20 EDT Oxygen Therapy Room air 07/01/2024 17:15 EDT Oxygen Therapy Room air 07/01/2024 16:43 EDT Oxygen Therapy Room air 07/01/2024 15:40 EDT Oxygen Therapy Room air Oxygen Saturation 97 % 07/01/2024 15:27 EDT Oxygen Therapy Room air Oxygen Saturation 96 % 07/01/2024 15:22 EDT Oxygen Therapy Room air Oxygen Saturation 96 % 07/01/2024 15:14 EDT Oxygen Therapy Room air Oxygen Saturation 96 % 07/01/2024 14:55 EDT Oxygen Therapy Room air Oxygen Saturation 95 % 07/01/2024 14:50 EDT Oxygen Therapy Room air Oxygen Saturation 93 % 07/01/2024 14:40 EDT Oxygen Saturation 99 % % 07/01/2024 14:35 EDT Oxygen Saturation 99 % % 07/01/2024 14:30 EDT Oxygen Saturation 99 % % 07/01/2024 14:25 EDT Oxygen Saturation 100 % % 07/01/2024 14:20 EDT Oxygen Saturation 98 % % 07/01/2024 14:15 EDT Oxygen Saturation 99 % % 07/01/2024 14:10 EDT Oxygen Saturation 99 % % 07/01/2024 14:05 EDT Oxygen Saturation 99 % % 07/01/2024 14:00 EDT Oxygen Saturation 99 % % 07/01/2024 13:55 EDT Oxygen Saturation 98 % % 07/01/2024 13:50 EDT Oxygen Saturation 98 % % 07/01/2024 13:45 EDT Oxygen Saturation 98 % % 07/01/2024 13:40 EDT Oxygen Saturation 99 % % 07/01/2024 13:35 EDT Oxygen Saturation 98 % % 07/01/2024 13:30 EDT Oxygen Saturation 98 % % 07/01/2024 13:25 EDT Oxygen Saturation 99 % % 07/01/2024 13:20 EDT Oxygen Saturation 99 % % 07/01/2024 13:15 EDT Oxygen Saturation 99 % % 07/01/2024 13:10 EDT Oxygen Saturation 100 % % 07/01/2024 13:05 EDT Oxygen Saturation 96 % % 07/01/2024 11:05 EDT Oxygen Therapy Room air Oxygen Saturation 95 % . Mental status: at preoperative baseline. Respiratory function: respirations are non-labored, Stable. Respiratory support: none. CV function: Stable. Cardiovascular support: none. Pain: Satisfactory. Nausea status: Satisfactory. Postoperative hydration status: within normal limits. Notes: Patient is sufficiently recovered from anesthesia to participate in the evaluation. No follow-up care needed. No complications post-anesthesia.. Digitally Signed by LINA ALCANTARA DO on 07/01/2024 07:47 PM [id number] Note* Exam Date Time Procedure Performing Provider Status 07/01/24 1:01 PM Ablation CV EMMANUEL DE LA CRUZ MD; Aut h (Verified) [id number] Anesthesiology Consult note Patient: DONNA NARANJO I Age: 83 years Sex: Female : 1940 Associated Diagnoses: None Author: LINA ALCANTARA DO Preoperative Information NPO greater than 8 hours food and greater than 2 hours liquid Anesthesia history Patient's history: negative. Health Status Allergies: Allergic Reactions (Selected) Severity Not Documented Latex- Rash. Penicillin- Unknown., Allergies (2) ActiveSeverityReaction LatexRash penicillinUnknown Current medications: (Selected) Inpatient Medications Ordered NS 1,000 mL: 50 mL/hr, Intravenous, Stop: 07/01/24 23:59:00 EDT Documented Medications Documented Aspirin EC 81 mg oral delayed release tablet: 81 mg, 1 tab(s), Oral, qDay Tylenol 8 HR Arthritis Pain 650 mg oral tablet, extended release: 1,300 mg, 2 tab(s), Oral, BID Vitamin C 250 mg oral tablet: 500 mg, 2 tab(s), Oral, qDay amiodarone 200 mg oral tablet: 200 mg, 1 tab(s), Oral, qAM, 0 Refill(s) cholecalciferol 125 mcg (5000 intl units) oral capsule: 125 mcg, 1 cap(s), Oral, qDay, 0 Refill(s) furosemide 40 mg oral tablet: 40 mg, 1 tab(s), Oral, BID, 30 tab(s), 0 Refill(s) furosemide 40 mg oral tablet: 40 mg, 1 tab(s), Oral, qDay, 0 Refill(s) losartan 25 mg oral tablet: 25 mg, 1 tab(s), Oral, Daily, 100 tab(s), 0 Refill(s) simvastatin 20 mg oral tablet: 20 mg, 1 tab(s), Oral, qHS, 0 Refill(s) warfarin 1 mg oral tablet: 1.5 mg, 1.5 tab(s), Oral, qDay, 0 Refill(s), Medications (1) Active Scheduled: (0) Continuous: (1) NS (0.9% nacl) 1,000 mL 1,000 mL, Intravenous, 50 mL/hr PRN: (0) Problem list: Medical Aortic insufficiency with aortic stenosis / SNOMED CT 136547886 / Confirmed Cardiac catheterization / SNOMED CT 82676752 / Confirmed Dyspnea on effort / SNOMED CT [id number] / Confirmed Aortic valve replaced / SNOMED CT 5192976428 / Confirmed Mitral valve replaced / SNOMED CT 5150360412 / Confirmed Hyperlipidemia / SNOMED CT 49892076 / Confirmed Tachycardia / SNOMED CT 9616736304 / Confirmed Mitral valve prosthesis / SNOMED CT 34745517 / Confirmed Osteopenia / SNOMED CT 580104638 / Confirmed Palpitations / SNOMED CT [id number] / Confirmed Right hand dominant / SNOMED CT [id number] / Confirmed Resolved: Beta eloy identification / SNOMED CT 238662669 Resolved: Bleeding diathesis / SNOMED CT 158693696 Resolved: C. difficile diarrhea / SNOMED CT 7620236874, Active Problems (21) AF (atrial fibrillation) Aortic insufficiency with aortic stenosis Aortic valve replaced Arthritis Back pain Cardiac catheterization Cardiomyopathy Chronic systolic heart failure Dizziness Dyspnea on effort Hyperlipidemia Long-term use of aspirin therapy Mitral valve prosthesis Mitral valve replaced On anticoagulant therapy Osteopenia Palpitations Right hand dominant Tachyarrhythmia Tachycardia Wears partial dentures Histories Past Medical History: Active Mitral valve prosthesis ([id number]) Comments: 01/20/2015 EST 17:31 LITO COLES APRN-MELISSA normal functioning [facility] [place] MV inserted in 2000 Cardiac catheterization ([id number]) Comments: 01/20/2015 EST 17:33 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 difficile diarrhea (5750004951): Resolved. Bleeding diathesis (865970174): Resolved. 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 Family History: Patient was adopted. Emphysema of lung Brother Heart disease Mother Brother Aneurysm Brother Procedure history: Cataract extraction and implantation of intraocular lens ([id number]) in 2021 at 81 Years. Cardioversion ([id number]) on 11/13/2020 at 79 Years. Aortic valve replacement and aortoplasty ([id number]) on 01/21/2015 at 74 Years. Comments: 01/22/2015 3:25 SERGIO Anthony 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, insertion of v - wire TPW's History of mitral valve replacement ([id number]) in 2000 at 60 Years. Cholecystectomy (66219373). ORIF - Open reduction and internal fixation of fracture (304591028). Comments: 06/17/2024 9:37 SERGIO Garcia right wrist ORIF - Open reduction and internal fixation of fracture ([id number]). Comments: 06/17/2024 9:37 SERGIO Garcia right leg Social History: Social & Psychosocial Habits Alcohol 05/22/2024 Use: Never 06/17/2024Risk Assessment: Denies Alcohol Use Substance Abuse 05/22/2024 Use: Never 06/17/2024Risk Assessment: Denies Substance Abuse Tobacco 05/22/2024 Tobacco Use: Never (less than 100 in l 06/17/2024Risk Assessment: Denies Tobacco Use Home/Environment 06/17/2024 Living situation: Home/Independent Safe place to go: Yes Domestic Concerns None Current Home Treatments Blood Pressure monitoring Special Services and Community Resources None Marital Status of Patient if Patient Independent Adult: Nutrition/Health 05/22/2024 Caffeine intake amount: 20 oz pop daily Physical Examination Vital Signs (last 24 hrs) Last Charted Temp Oral36.6 DegC (JULY 01 11:05) Heart Rate ApicalH 108 bpm (JULY 01 11:05) AJZ092 mmHg (JULY 01 11:) DBP70 mmHg (JULY 01 11:05) General: Alert and oriented. Airway: Mallampati classification: II (soft palate, fauces, uvula visible). Dentition Evaluation: Intact. Respiratory: Lungs are clear to auscultation, Respirations are non-labored. Cardiovascular: Normal rate, Regular rhythm. Heart Sounds: Normal. Neurologic: Alert, Oriented. Review / Management Results review: No qualifying data available . Documentation reviewed: Current records. Assessment and Plan [place] [employer]esthesi[employer] (ASA) physical status classification: Class III. Anesthetic Preoperative Plan Premedication: intravenous. Anesthetic technique: General. Induction: intravenously. Maintenance airway: Oral endotracheal tube. Special Monitoring: Arterial line. Postoperative pain management: Per surgeon. Risks discussed: nausea, vomiting, headache, sore throat, dental injury, hypotension, allergic reaction, serious complications. Informed consent: signed by patient. Notes: Patient seen and evaluated pre-operatively by Anesthesiologist. ASA 3 or greater due to the following comorbidities: AI s/p AVR, MR s/p MVR, A fib, HTN, tachycardia induced cardiomyopathy. Digitally Signed by LINA ALCANTARA DO on 07/01/2024 11:43 AM [id number] Note* Exam Date Time Procedure Performing Provider Status 07/01/24 11:37 AM Electrocardiogram - EKG - CV REVA POE MD; Auth (Verified) ECG Final Report ATRIAL FIBRILLATION WITH OCCASIONAL VENTRICULAR PREMATURE COMPLEXES LEFT ANTERIOR FASCICULAR BLOCK LEFT VENTRICULAR HYPERTROPHY AND ST-T CHANGE Electronic Signature: ALFA POE MD 07/02/2024 23:12:18 [id number] Evaluation note* Diagnosis Onset Date Resolution Status Admit Date RUIZ (dyspnea on exertion) acute June 28, 2024 10:51am History of mechanical aortic valve replacement January, acute June 28, 2024 10:51am History of mitral valve replacement with mechanical valve Jun, 2000 acute June 28, 2024 10 :51am Atrial fibrillation chronic June 282024 10:51am Hyperlipidemia chronic June 28, 2 025 10:51am 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 chronic 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 June 28, 2024 10 :51am [facility] Work Phone: 1(420) 466-119005-09-2025 Evaluation note* Diagnosis Onset Date Resolution Status Admit Date RUIZ (dyspnea on exertion) acute June 28, 2024 10:51am History of mechanical aortic valve replacement January, acute June 28, 2024 10:51am History of mitral valve replacement with mechanical valve Jun, 2000 acute June 28, 2024 10 :51am Atrial fibrillation chronic June 282024 10:51am Hyperlipidemia chronic June 28, 025 10:51am 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 chronic June 28 10:51am 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) 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 chronic June 28, 2024 10 :51am Bradycardia acute August 26 10:53am RUIZ (dyspnea on exertion) acute August 26, 2024 10:53am History of mechanical aortic valve replacement January, acute August 26, 2024 10:53am History of mitral valve replacement with mechanical valve Jun, 2000 acute August 26, 2024 10:53am Renal insufficiency acute August 26, 2024 10:53am Atrial fibrillation chronic August 26, 2024 10:53am Hyperlipidemia chronic August 26, 2024 10:53am 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 chronic August 26 10:53am 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) 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 chronic August 26, 2024 10:53am [facility] Work Phone: 1(107) 658-810912-08-2023 Procedure [facility] 01-20-2015 Evaluation note* Diagnosis Onset Date Resolution Status 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 Atrial flutter, paroxysmal c hronic H/O aortic valve replacement January 20, 2015 chronic H/O mitral valve replacement July 12, 2000 chronic Hyperlipidemia [facility] Work Phone: 1(806) 282-994712-01-2015 Evaluation note* Diagnosis Onset Date Resolution Status Encounter for routine gynecological examination noneactive History of mechanical aortic valve replacement Lisbet r, 2014 acute History of mitral valve repl acement with mechanical valve Jun, 2000 acute Atrial flutter, paroxysmal c hronic Hyperlipidemia chronic 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 [facility] Work Phone: 1(150) 130-929412-01-2015 Evaluation note* Diagnosis Onset Date Resolution Status History of mechanical aortic valve replacement 2014 acute History of mitral valve repl acement with mechanical valve Jun, 2000 acute Atrial flutter, paroxysmal c hronic Hyperlipidemia chronic 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 [facility] Work Phone: 1(282) 290-640012-01-2015 Evaluation note* Diagnosis Onset Date Resolution Status Admit Date History of mechanical aortic valve replacement January,February 09, 2024 10:36am History of mitral valve replacement with mechanical valve Jun, 2000February 08 024 10:36am Atrial fibrillation chronic 2023 10:36am Hyperlipidemia chronic January 212023 10:36am 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 chronic January 10:36am 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) 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 February 08 10:36am History of mechanical aortic valve replacement January,April 11, 2024 10:04am History of mitral valve replacement with mechanical valve Jun, 2000April 11 10:04am Atrial fibrillation chronic 2024 10:04am Hyperlipidemia chronic March 242024 10:04am 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 chronic March 10:04am 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 April 11 10:04am [facility] Work Phone: 1(912) 126-927412-01-2015 Evaluation note* Diagnosis Onset Date Resolution Status Admit Date History of mechanical aortic valve replacement January,April 11, 2024 10:04am History of mitral valve replacement with mechanical valve Jun, 2000April 11 10:04am Atrial fibrillation chronic 2024 10:04am Hyperlipidemia chronic March 242024 10:04am 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 chronic March 10:04am 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) 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 chronic April 11 10:04am RUIZ (dyspnea on exertion) acute June 28, 2024 10:51am History of mechanical aortic valve replacement January,June 28, 2024 10:51am History of mitral valve replacement with mechanical valve Jun, 2000 acute June 28, 2024 10 :51am Atrial fibrillation chronic June 282024 10:51am Hyperlipidemia chronic June 28, 2 025 10:51am 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 chronic 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 June 28, 2024 10 :51am [facility] Work Phone: 1(221) 555-351205-23-2001 Evaluation note* Diagnosis Onset Date Resolution Status Bradycardia 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 Atrial flutter, paroxysmal c hronic Hyperlipidemia chronic H/O mitral valve replacement July 12, 2000 resolved Encounter for routine gynecological examination noneactive History of mechanical aortic valve replacement Decemb r, 2014 acute History of mitral valve repl acement with mechanical valve Jun, 2000 acute Atrial flutter, paroxysmal c hronic Hyperlipidemia chronic 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 [facility] Work Phone: Evaluation + Plan note Future Appointments Appointment Date:07/01/2024 01:00:00 PM Scheduled Provider: Location:[facility] Appointment Type:EP Ablation PF-Ensite Appointment Date:08/21/2024 02:45:00 PM Scheduled Provider:DIA DE LA CRUZ Location:[facility] Appointment Type:[facility] evaluation + Plan note Future Appointments Appointment Date:08/21/2024 02:45:00 PM Scheduled Provider:DIA DE LA CRUZ Location:[facility] Appointment Type:[facility] evaluation noteNo assessment information available [facility] Work Phone: evaluation note* Diagnosis Onset Date Resolution Status Elevated TSH acute Atrial flutter, paroxysmal c hronic Low back pain noneactive Establishing care with new doctor, encounter for noneactive Vaginal discharge noneactive [facility] Work Phone: evaluation note* Diagnosis Onset Date Resolution Status Elevated TSH acute Atrial flutter, paroxysmal c hronic Low back pain noneactive Establishing care with new doctor, encounter for noneactive Vaginal discharge noneactive Cystocele with uterine descensus acute Vulvar irritation noneactive Encounter for routine gynecological examination noneactive 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 Low back pain noneactive Right knee pain noneactive Post-traumatic headache none active Right hip pain noneactive Fall noneactive [facility] Work Phone: Evaluation note* Diagnosis Onset Date Resolution Status Elevated TSH acute Atrial flutter, paroxysmal c hronic Low back pain noneactive Establishing care with new doctor, encounter for noneactive Vaginal discharge noneactive Cystocele with uterine descensus acute Vulvar irritation noneactive Encounter for routine gynecological examination noneactive 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) 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 chronic Low back pain noneactive Right knee pain noneactive Post-traumatic headache none active Right hip pain noneactive Fall noneactive Chondrocalcinosis of knee ac sun'aq Degenerative joint disease of right hip acute Greater trochanteric bursitis acute IT band syndrome acute Lumbar degenerative disc disease acute Right knee DJD acute [facility] Work Phone: Evaluation note* Diagnosis Onset Date Resolution Status Elevated TSH acute Atrial flutter, paroxysmal c hronic Low back pain noneactive Establishing care with new [place], encounter for noneactive Vaginal discharge noneactive Cystocele with uterine descensus acute Vulvar irritation noneactive Encounter for routine gyneco logical examination noneactive 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) 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 chronic Low back pain noneactive Right knee pain noneactive Post-traumatic headache none active Right hip pain noneactive Fall noneactive Chondrocalcinosis of knee ac sun'aq Degenerative joint disease of right hip acute Greater trochanteric bursitis acute IT band syndrome acute Lumbar degenerative disc disease acute Right knee DJD acute Fatigue acute senior care current use of amiodarone acute Atrial flutter, paroxysmal c hronic Hyperlipidemia chronic Lightheadedness chronic H/O aortic valve replacement January 20, 2015 resolved H/O mitral valve replacement July 12, 2000 resolved [facility] Work Phone: Evaluation note* Diagnosis Onset Date Resolution Status Cystocele with uterine descensus acute Vulvar irritation noneactive Encounter for routine gyneco logical examination noneactive 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) 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 chronic Low back pain noneactive Right knee pain noneactive Post-traumatic headache none active Right hip pain noneactive Fall noneactive Chondrocalcinosis of knee ac sun'aq Degenerative joint disease of right hip acute Greater trochanteric bursitis acute IT band syndrome acute Lumbar degenerative disc disease acute Right knee DJD acute 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 Atrial flutter, paroxysmal c hronic Hyperlipidemia chronic Lightheadedness chronic H/O aortic valve replacement January 20, 2015 resolved H/O mitral valve replacement July 12, 2000 resolved Elevated TSH acute Lumbar degenerative disc disease acute Atrial flutter, paroxysmal c hronic Macrocytic anemia noneactive Vaginal discharge noneactive Bilateral leg weakness nonea ctive [facility] Work Phone: Evaluation note* Diagnosis Onset Date Resolution Status Cystocele with uterine descensus acute Vulvar irritation noneactive Encounter for routine gynecological examination noneactive 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) 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 chronic Low back pain noneactive Right knee pain noneactive Post-traumatic headache none active Right hip pain noneactive Fall noneactive Chondrocalcinosis of knee ac sun'aq Degenerative joint disease of right hip acute Greater trochanteric bursitis acute IT band syndrome acute Lumbar degenerative disc disease acute Right knee DJD acute Fatigue acute senior care current use of amiodarone acute Atrial flutter, paroxysmal c hronic Hyperlipidemia chronic Lightheadedness chronic H/O mitral valve replacement July 12, 2000 resolved Elevated TSH acute Lumbar degenerative disc disease acute Atrial flutter, paroxysmal c hronic Macrocytic anemia noneactive Vaginal discharge noneactive Bilateral leg weakness nonea ctive Dyspnea on exertion acute 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 Atrial flutter, paroxysmal c hronic Hyperlipidemia chronic H/O mitral valve replacement July 12, 2000 resolved Sacroiliitis acute [facility] Work Phone: Evaluation note* Diagnosis Onset Date Resolution Status 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 Low back pain noneactive Right knee pain noneactive Post-traumatic headache none active Right hip pain noneactive Fall noneactive Chondrocalcinosis of knee ac sun'aq Degenerative joint disease of right hip acute Greater trochanteric bursitis acute IT band syndrome acute Lumbar degenerative disc disease acute Right knee DJD acute 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 Atrial flutter, paroxysmal c hronic Hyperlipidemia chronic Lightheadedness chronic H/O mitral valve replacement July 12, 2000 resolved Elevated TSH acute Lumbar degenerative disc disease acute Atrial flutter, paroxysmal c hronic Macrocytic anemia noneactive Vaginal discharge noneactive Bilateral leg weakness nonea ctive Dyspnea on exertion acute Fatigue acute senior care current use of amiodarone acute Atrial flutter, paroxysmal c hronic Hyperlipidemia chronic H/O mitral valve replacement July 12, 2000 resolved Sacroiliitis acute [facility] Work Phone: Evaluation note* Diagnosis Onset Date Resolution Status Chondrocalcinosis of knee ac sun'aq Degenerative joint disease of right hip acute Greater trochanteric bursitis acute IT band syndrome acute Lumbar degenerative disc disease acute Right knee DJD acute Fatigue acute senior care current use of amiodarone acute Atrial flutter, paroxysmal c hronic Hyperlipidemia chronic Lightheadedness chronic H/O mitral valve replacement July 12, 2000 resolved Elevated TSH acute Lumbar degenerative disc disease acute Atrial flutter, paroxysmal c hronic Macrocytic anemia noneactive Vaginal discharge noneactive Bilateral leg weakness nonea ctive Dyspnea on exertion acute Fatigue acute senior care current use of amiodarone acute Atrial flutter, paroxysmal c hronic Hyperlipidemia chronic H/O mitral valve replacement July 12, 2000 resolved Sacroiliitis acute [facility] Work Phone: Evaluation note* Diagnosis Onset Date Resolution Status 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 Atrial flutter, paroxysmal c hronic Hyperlipidemia chronic Lightheadedness chronic H/O mitral valve replacement July 12, 2000 resolved Elevated TSH acute Lumbar degenerative disc disease acute Atrial flutter, paroxysmal c hronic Macrocytic anemia noneactive Vaginal discharge noneactive Bilateral leg weakness nonea ctive Dyspnea on exertion acute Fatigue acute senior care current use of amiodarone acute Atrial flutter, paroxysmal c hronic Hyperlipidemia chronic H/O mitral valve replacement July 12, 2000 resolved Sacroiliitis acute [facility] Work Phone: Evaluation note* Diagnosis Onset Date Resolution Status Elevated TSH acute Lumbar degenerative disc disease acute Atrial flutter, paroxysmal c hronic Macrocytic anemia noneactive Vaginal discharge noneactive Bilateral leg weakness nonea ctive Dyspnea on exertion acute 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 Atrial flutter, paroxysmal c hronic Hyperlipidemia chronic H/O mitral valve replacement July 12, 2000 resolved Sacroiliitis acute [facility] Work Phone: Evaluation note* Diagnosis Onset Date Resolution Status Dyspnea on exertion acute Fatigue acute senior care current use of amiodarone acute Atrial flutter, paroxysmal c hronic Hyperlipidemia chronic H/O mitral valve replacement July 12, 2000 resolved Sacroiliitis acute [facility] Work Phone: Evaluation note* Diagnosis Onset Date Resolution Status Bradycardia acute Fatigue acute senior care current use of amiodarone acute Atrial flutter, paroxysmal c hronic Hyperlipidemia chronic H/O mitral valve replacement July 12, 2000 resolved [facility] Work Phone: Evaluation note* Diagnosis Onset Date Resolution Status Bradycardia acute Fatigue acute senior care current use of amiodarone acute Atrial flutter, paroxysmal c hronic Hyperlipidemia chronic H/O mitral valve replacement July 12, 2000 resolved Lichen sclerosus acute Encounter for routine gynecological examination noneactive [facility] Work Phone: Hospital course Narrative No data available for this section [facility] Discharge instructions No data available for this section [facility] Progress note No data available for this section [facility] Reason for referral (narrative)[facility] Summary Purpose Family History No Family History Records Found Relationship Condition Age at Onset Recorded Date/T hardeep Not Specified Adopted Unknown Advance Directives No Advanced Directives Records Found Advance Directive Response Recorded Date/ Time Advance Directives No October 10:46am Living Will No November 13, 2020 10:46am Power of Hot [place] Worker No October 10:46am Advance Directive Response Recorded Date/ Time Advance Directives No June 08 022 2:07pm Living Will No June 08, 2021 2:07pm Power of [employer] [place] Worker No June 08 2:07pm Advance Directive Response Recorded Date/ Time Advance Directives No June 08 1:07pm Living Will No June 08, 2021 1:07pm Power of [employer] [place] Worker No June 08 1:07pm Advance Directive Response Recorded Date/ Time Advance Directives No March 09, 2022 1:08pm Living Will No March 09 1:08pm Power of [employer] [place] Worker No March 09, 2022 1:08pm Advance Directive Response Recorded Date/ Time Advance Directives No March 09, 2022 2:08pm Living Will No March 09 2:08pm Power of [place] Worker No March 09, 2022 2:08pm Advance Directive Response Recorded Date/ Time Advance Directives No May 07, 2 025 1:05pm Living Will No February 20 5:26am Do you have a Healthcare Power of [employer] [place] Worker? No February 21, 2024 5:26am Living Will No March 23 3:00am Do you have a Healthcare Power of [place] Worker? No March 23, 2024 3:00am Living Will No April 20, 2024 5:52am Do you have a Healthcare Power of [employer] [place] Worker? No April 20, 2024 5:52am Living Will No March 09 2:08pm Do you have a Healthcare Power of [employer] [place] Worker? No March 09, 2022 2:08pm Living Will No February 09, 024 2:13am Do you have a Healthcare Power of [employer] [place] Worker? No February 10, 2024 2:13am Advance Directive Response Recorded Date/ Time Advance Directives No May 07, 2 025 1:05pm Living Will No March 23 3:00am Do you have a Healthcare Power of [employer] [place] Worker? No March 23, 2024 3:00am Living Will No April 20, 2024 5:52am Do you have a Healthcare Power of [employer] [place] Worker? No April 20, 2024 5:52am Living Will No May 20, 2024 10:15pm Do you have a Healthcare Power of [employer] [place] Worker? No May 20, 2024 10:15pm Living Will No June 19, 2024 9:34pm Do you have a Healthcare Power of [employer] [place] Worker? No June 19, 2024 9:34pm Advance Directive Response Recorded Date/ Time Advance Directives No May 07, 2 025 1:05pm Living Will No April 20, 2024 5:52am Do you have a Healthcare Power of [employer] [place] Worker? No April 20, 2024 5:52am Living Will No May 20, 2024 10:15pm Do you have a Healthcare Power of [employer] [place] Worker? No May 20, 2024 10:15pm Living Will No July 20, 2024 1 0:10pm Do you have a Healthcare Power of [employer] [place] Worker? No July 20, 2024 10:10pm Living Will No June 19, 2024 9:34pm Do you have a Healthcare Power of [place] Worker? 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 Atrial flutter, paroxysmal H/O aortic valve replacement H/O mitral valve replacement Hyperlipidemia Chief Complaint S/O S/O S/O S/O 6 m fu E ORDERS Reason for Visit 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 Atrial flutter, paroxysmal H/O aortic valve replacement H/O mitral valve replacement Hyperlipidemia Chief Complaint S/O S/O S/O 6 m fu E ORDERS S/O Reason for Visit 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 Atrial flutter, paroxysmal H/O aortic valve replacement H/O mitral valve replacement Hyperlipidemia Chief Complaint S/O S/O 6 m fu E ORDERS S/O S/O Reason for Visit 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 Atrial flutter, paroxysmal H/O aortic valve replacement H/O mitral valve replacement Hyperlipidemia Chief Complaint 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 RX HERE Reason for Visit Elevated TSH Atrial flutter, paroxysmal Low back pain Establishing care with new doctor, encounter for Vaginal discharge Cystocele with uterine descensus Vulvar irritation Encounter for routine gynecological examination 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) 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 Low back pain Right knee pain Post-traumatic headache Right hip pain Fall Chondrocalcinosis of knee Degenerative joint disease of right hip Greater trochanteric bursitis IT band syndrome Lumbar degenerative disc disease Right knee DJD 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 Atrial flutter, paroxysmal Hyperlipidemia Lightheadedness H/O aortic valve replacement H/O mitral valve replacement Chief 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 RX HERE S/O R/S 3 M FU Reason for Visit Cystocele with uteri ne descensus Vulvar irritation Encounter for routine gynecological examination 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) 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 Low back pain Right knee pain Post-traumatic headache Right hip pain Fall Chondrocalcinosis of knee Degenerative joint disease of right hip Greater trochanteric bursitis IT band syndrome Lumbar degenerative disc disease Right knee DJD 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 Atrial flutter, paroxysmal Hyperlipidemia Lightheadedness H/O aortic valve replacement H/O mitral valve replacement Elevated TSH Lumbar degenerative disc disease Atrial flutter, paroxysmal Macrocytic anemia Vaginal discharge Bilateral leg weakness Chief Complaint 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 RX HERE S/O R/S 3 M FU S/O CHRONIC BACK PAIN 6 wk fu E ORDERS SPINAL STENOSIS Rm 5 xray Reason for Visit Cystocele with uteri ne descensus Vulvar irritation Encounter for routine gynecological examination 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) 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 Low back pain Right knee pain Post-traumatic headache Right hip pain Fall Chondrocalcinosis of knee Degenerative joint disease of right hip Greater trochanteric bursitis IT band syndrome Lumbar degenerative disc disease Right knee DJD 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 Atrial flutter, paroxysmal Hyperlipidemia Lightheadedness H/O mitral valve replacement Elevated TSH Lumbar degenerative disc disease Atrial flutter, paroxysmal Macrocytic anemia Vaginal discharge Bilateral leg weakness Dyspnea on exertion 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 Atrial flutter, paroxysmal Hyperlipidemia H/O mitral valve replacement Sacroiliitis Chief Complaint HURT BACK AND RIGHT 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 Low back pain Right knee pain Post-traumatic headache Right hip pain Fall Chondrocalcinosis of knee Degenerative joint disease of right hip Greater trochanteric bursitis IT band syndrome Lumbar degenerative disc disease Right knee DJD 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 Atrial flutter, paroxysmal Hyperlipidemia Lightheadedness H/O mitral valve replacement Elevated TSH Lumbar degenerative disc disease Atrial flutter, paroxysmal Macrocytic anemia Vaginal discharge Bilateral leg weakness Dyspnea on exertion 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 RX HERE S/O R/S 3 M FU S/O CHRONIC BACK PAIN 6 wk fu E ORDERS SPINAL STENOSIS Rm 5 xray S/O Reason for Visit Chondrocalcinosis of knee Degenerative joint disease of right hip Greater trochanteric bursitis IT band syndrome Lumbar degenerative disc disease Right knee DJD 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 Atrial flutter, paroxysmal Hyperlipidemia Lightheadedness H/O mitral valve replacement Elevated TSH Lumbar degenerative disc disease Atrial flutter, paroxysmal Macrocytic anemia Vaginal discharge Bilateral leg weakness Dyspnea on exertion 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 Atrial flutter, paroxysmal Hyperlipidemia H/O mitral valve replacement Sacroiliitis Chief Complaint S/O 6 M FU LIGHTHEADEDNESS, LT CAROTID STENOSIS LIGHTHEADEDNESS/DIZZINESS S/O IT BAND UNSPECIFIED. 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 Atrial flutter, paroxysmal Hyperlipidemia H/O mitral valve replacement Sacroiliitis Chief Complaint S/O R/S 3 M FU 30 DAY MONITOR S/O CHRONIC BACK PAIN 6 wk fu E ORDERS SPINAL STENOSIS Rm 5 xray 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 Amb Documentation S/O S/O Reason for Visit Elevated TSH Lumbar degenerative disc disease Atrial flutter, paroxysmal Macrocytic anemia Vaginal discharge Bilateral leg weakness Dyspnea on exertion 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 Atrial flutter, paroxysmal Hyperlipidemia H/O mitral valve replacement Sacroiliitis Chief Complaint S/O CHRONIC BACK PAIN 6 wk fu E ORDERS SPINAL STENOSIS Rm 5 xray CARE HOME DRUG THERAPY Amb Documentation S/O S/O S/O Reason for Visit Dyspnea on exertion 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 Atrial flutter, paroxysmal Hyperlipidemia H/O mitral valve replacement Sacroiliitis Chief Complaint 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 THERA PY Amb Documentation S/O S/O S/O S/O Chief Complaint S/O S/O S/O S/O 1 Y FU// PREV PFM Reason for Visit Bradycardia 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 Atrial flutter, paroxysmal Hyperlipidemia H/O mitral valve replacement Chief Complaint S/O S/O S/O 1 Y FU// PREV PFM S/O E ORDER Reason for Visit Bradycardia 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 Atrial flutter, paroxysmal Hyperlipidemia H/O mitral valve replacement Chief Complaint S/O S/O 1 Y FU// PREV PFM S/O E ORDER 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 Reason for Visit Bradycardia 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 Atrial flutter, paroxysmal Hyperlipidemia H/O mitral valve replacement Lichen sclerosus Encounter for routine gynecological examination Chief Complaint S/O S/O 1 Y FU// PREV PFM S/O E ORDER 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 S/O Reason for Visit Bradycardia 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 Atrial flutter, paroxysmal Hyperlipidemia H/O mitral valve replacement Lichen sclerosus Encounter for routine gynecological examination Chief Complaint S/O 1 Y FU// PREV PFM S/O E ORDER 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 S/O S/O 3 M FU E-ORDER Reason for Visit 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 Atrial flutter, paroxysmal Hyperlipidemia H/O mitral valve replacement Encounter for routine gynecological examination History of mechanical aortic valve replacement History of mitral valve replacement with mechanical valve Atrial flutter, paroxysmal Hyperlipidemia 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) 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 Chief Complaint 1 Y FU// PREV PFM S/O E ORDER 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 S/O S/O 3 M FU E-ORDER S/O Dyspnea, unspecified Dyspnea, unspecified Reason for Visit Bradycardia 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 care current use of amiodarone Atrial flutter, paroxysmal Hyperlipidemia H/O mitral valve replacement Encounter for routine gynecological examination History of mechanical aortic valve replacement History of mitral valve replacement with mechanical valve Atrial flutter, paroxysmal Hyperlipidemia 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 Chief Complaint 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 S/O S/O 3 M FU E-ORDER Dyspnea, unspecified Dyspnea, unspecified S/O S/O Reason for Visit Encounter for routin e gynecological examination History of mechanical aortic valve replacement History of mitral valve replacement with mechanical valve Atrial flutter, paroxysmal Hyperlipidemia 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) 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 Chief Complaint S/O 3 M FU E-ORDER Dyspnea, unspecified Dyspnea, unspecified S/O S/O S/O Reason for Visit History of mechanica l aortic valve replacement History of mitral valve replacement with mechanical valve Atrial flutter, paroxysmal Hyperlipidemia 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 Chief Complaint Dyspnea, unspecified Dyspnea, unspecified S/O S/O S/O S/O Chief Complaint Admit Date 4 W FU February 09, 2024 10:36am cold February 10, 2024 1:07am S/O February 19, 2024 1:03pm S/O March 14, 2024 1 2:54pm 2 M FU April 11, 2024 10:04am S/O April 15, 2024 11:57am Bradycardia May 07, 2024 2:2 1pm S/O May 16, 2024 1:1 5pm CHF (DOES NOT WANT AVANI ISAIAH) May 16, 2024 1:28pm Reason for Visit Admit Date History of mechanical aortic valve repla cement February 09, 2024 10:36am History of mitral valve replacement with mechanical valve February 09, 2024 10:36am Atrial fibrillation February 09, 2024 10:36am Hyperlipidemia February 09, 2024 10:36am 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 February 09, 2024 10:36am 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) use of anticoagulant s February 09, 2024 10:36am History of mechanical aortic valve repla cement April 11, 2024 10:04am History of mitral valve replacement with mechanical valve April 11, 2024 10:04am Atrial fibrillation April 11, 2024 10:04am Hyperlipidemia April 11, 2024 10:04am 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 April 11, 2024 10:04am 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) use of anticoagulant s April 11, 2024 10:04am Chief Complaint Admit Date 2 M FU April 11, 2024 10:04am S/O April 15, 2024 11:57am Bradycardia May 07, 2024 2:2 1pm S/O May 16, 2024 1:1 5pm CHF (DOES NOT WANT AVANI ISAIAH) May 16, 2024 1:28pm S/O June 07, 2024 10: 25am 6 M FU June 28, 2024 10:51a m S/O/ADDITL MAGDY LOUIE 07/05/24 July 12, 2024 1:00pm EORDER July 19, 2024 1:17p m Reason for Visit Admit Date History of mechanical aortic valve repla cement April 11, 2024 10:04am History of mitral valve replacement with mechanical valve April 11, 2024 10:04am Atrial fibrillation April 11, 2024 10:04am Hyperlipidemia April 11, 2024 10:04am 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 April 11, 2024 10:04am 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) use of anticoagulant s April 11, 2024 10:04am RUIZ (dyspnea on exertion) June 28, 2024 10:51am History of mechanical aortic valve repla cement June 28, 2024 10:51am History of mitral valve replacement with mechanical valve June 28, 2024 10:51am Atrial fibrillation June 28, 2024 10:51a m Hyperlipidemia June 28, 2024 10:51a m 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 June 28, 2024 10:51a 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 June 28, 2024 10:51am Chief Complaint Admit Date Bradycardia May 07, 2024 2:2 1pm S/O May 16, 2024 1:1 5pm CHF (DOES NOT WANT AVANI ISAIAH) May 16, 2024 1:28pm S/O June 07, 2024 10: 25am 6 M FU June 28, 2024 10:51a m S/O/ADDITL EOGIRMA LOUIE 07/05/24 July 12, 2024 1:00pm EORDER July 19, 2024 1:17p m S/O/ADDITL MAGDY LOUIE 07/05/24 August 13, 2024 12:27pm Reason for Visit Admit Date RUIZ (dyspnea on exertion) June 28, 2024 10:51am History of mechanical aortic valve repla cement June 28, 2024 10:51am History of mitral valve replacement with mechanical valve June 28, 2024 10:51am Atrial fibrillation June 28, 2024 10:51a m Hyperlipidemia June 28, 2024 10:51a m 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 June 28, 2024 10:51a 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 June 28, 2024 10:51am Chief Complaint Admit Date Bradycardia May 07, 2024 2:2 1pm S/O May 16, 2024 1:1 5pm CHF (DOES NOT WANT AVANI ISAIAH) May 16, 2024 1:28pm S/O June 07, 2024 10: 25am 6 M FU June 28, 2024 10:51a m S/O/ADDITL EORDER CORTEZ LOUIE 07/05/24 July 12, 2024 1:00pm EORDER July 19, 2024 1:17p m S/O/ADDITL EORDER CORTEZ LOUIE 07/05/24 August 13, 2024 12:27pm S/O/ADDITL EORDER CORTEZ LOUIE 07/05/24 August 21, 2024 12:42pm 2 M FU August 26, 2024 10:53 am Reason for Visit Admit Date RUIZ (dyspnea on exertion) June 28, 2024 10:51am History of mechanical aortic valve repla cement June 28, 2024 10:51am History of mitral valve replacement with mechanical valve June 28, 2024 10:51am Atrial fibrillation June 28, 2024 10:51a m Hyperlipidemia June 28, 2024 10:51a m 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 June 28, 2024 10:51a 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 June 28, 2024 10:51am Bradycardia August 26, 2024 10:53 am RUIZ (dyspnea on exertion) August 26, 2024 10:53am History of mechanical aortic valve repla cement August 26, 2024 10:53am History of mitral valve replacement with mechanical valve August 26, 2024 10:53am Renal insufficiency August 26, 2024 10:53 am Atrial fibrillation August 26, 2024 10:53 am Hyperlipidemia August 26, 2024 10:53 am 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 August 26, 2024 10:53 a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 August 26, 2024 10:53am Additional Source Comments INFORMATION SOURCE (unrecogn ized section and content) DATE CREATED AUTHOR 08/16/2017 [facility] DATE CREATED AUTHOR AUTHOR'S ORGANIZ ATION 07/09/2024 [facility] DATE CREATED AUTHOR AUTHOR'S ORGANIZ ATION 09/06/2024 [facility] Goals (unrecognized section and content) Goals may be documented in a n alternate sectionGoals may be documented in an alternate sectionGoals may be documented in an alternate sectionGoals may be documented in an alternate sectionGoals may be documented in an alternate sectionGoals may be documented in an alternate sectionGoals may be documented in an alternate sectionGoals may be documented in an alternate sectionGoals may be documented in an alternate sectionGoals may be documented in an alternate sectionGoals may be documented in an alternate sectionGoals may be documented in an alternate sectionGoals may be documented in an alternate sectionGoals may be documented in an alternate sectionGoals may be documented in an alternate sectionGoals may be documented in an alternate sectionGoals may be documented in an alternate sectionGoals may be documented in an alternate sectionGoals may be documented in an alternate sectionGoals may be documented in an alternate sectionGoals may be documented in an alternate sectionGoals may be documented in an alternate sectionGoals may be documented in an alternate sectionGoals may be documented in an alternate sectionGoals may be documented in an alternate sectionGoals may be documented in an alternate sectionGoals may be documented in an alternate sectionGoals may be documented in an alternate sectionGoals may be documented in an alternate sectionGoals may be documented in an alternate sectionGoals may be documented in an alternate sectionGoals may be documented in an alternate sectionGoals may be documented in an alternate sectionGoals may be documented in an alternate sectionGoals may be documented in an alternate sectionGoals may be documented in an alternate section No data available for this section No data available for this sectionGoals may be documented in an alternate sectionGoals may be documented in an alternate sectionGoals may be documented in an alternate sectionGoals may be documented in an alternate section Care Teams (unrecognized sec tion and content) Team Status: Active Member Role Status Dates Dee Azevedo DO Primary Care Provider Active Team Status: Inactive Member Role Status Dates Alfa Bush GLAZE HANDLER, GLAZE HANDLER-C Attending Provider, Referring Pro vider Active Dr. Kylah Santizo MD Other Provider Active Dee Azevedo DO Primary Care Provider Active Team Status: Active Member Role Status Dates Dee Azevedo DO Primary Care Provider Active Dr. Kylah Santizo MD Referring Provider, Other Provid er Active Dr. Vlad Orellana MD Attending Provider Active Team Status: Inactive Member Role Status Dates Dee Azevedo DO Primary Care Provider Active Dr. Kylah Santizo MD Attending Provider, Referring Pr ovider Active Team Status: Inactive Member Role Status Dates No Primary Care Physician Referring Provider Active Alfa Bush GLAZE HANDLER, GLAZE HANDLER-C Attending Provider Active Dr. Marian Jackson MD Primary Care Provider Active Team Status: Active Member Role Status Dates Dr. Marian Jackson MD Primary Care Provider, Attendi ng Provider Active Team Status: Inactive Member Role Status Dates Dr. Marian Jackson MD Primary Care Provider Active Alfa Bush GLAZE HANDLER, GLAZE HANDLER-C Attending Provider, Referring Pro vider Active Dr. Kylah Santizo MD Other Provider Active Team Status: Active Member Role Status Dates Dr. Marian Jackson MD Primary Care Provider Active Alfa Bush GLAZE HANDLER, GLAZE HANDLER-C Attending Provider, Referring Pro vider Active Dr. Kylah Santizo MD Other Provider Active Team Status: Inactive Member Role Status Dates Dee Azevedo DO Primary Care Provider, Attending Provider Active Team Status: Active Member Role Status Dates Dr. Marian Jackson MD Primary Care Provider Active Team Status: Inactive Member Role Status Dates Dr. Joey Martines MD Attending Provider, Referring Provider Active Dr. Marian Jackson MD Primary Care Provider Active Alfa Bush GLAZE HANDLER, GLAZE HANDLER-C Other Provider Active Team Status: Active Member Role Status Dates Dr. Marian Jackson MD Primary Care Provider Active Dr. Joey Martines MD Attending Provider Active Team Status: Active Member Role Status Dates Dr. Marian Jackson MD Primary Care Provider Active Alfa Bush GLAZE HANDLER, GLAZE HANDLER-C Attending Provider Active Team Status: Inactive Member Role Status Dates Dr. Marian Jackson MD Primary Care Provider Active Alfa Bush GLAZE HANDLER, GLAZE HANDLER-C Attending Provider, Referring Pro vider Active Team Status: Inactive Member Role Status Dates No Primary Care Physician Referring Provider Active Beth Condon GLAZE HANDLER, GLAZE HANDLER-C Attending Provider Active Dr. Marian Jackson MD Primary Care Provider Active Team Status: Inactive Member Role Status Dates Dr. Marian Jackson MD Primary Care Pro vider, Attending Provider, Referring Provider Active Team Status: Inactive Member Role Status Dates Dr. Marian Jackson MD Primary Care Provider, Referri ng Provider Active Dr. Hossein Lee DO Attending Provider Active Team Status: Active Member Role Status Dates Dr. Marian Jackson MD Primary Care Provider Active Dr. Reggie Garcia MD Attending Provider Active Alfa Bush GLAZE HANDLER, GLAZE HANDLER-C Referring Provider Active Team Status: Inactive Member Role Status Dates Dr. Marian Jackson MD Primary Care Provider, Referri ng Provider Active Alfa Bush GLAZE HANDLER, GLAZE HANDLER-C Attending Provider Active Team Status: Inactive Member Role Status Dates Dr. Marian Jackson MD Primary Care Provider, Referri ng Provider Active Dr. Tunde Monet DO Attending Provider Active Team Status: Inactive Member Role Status Dates Dr. Marian Jackson MD Primary Care Provider Active Dr. Alex Sol MD Attending Provider Active Team Status: Inactive Member Role Status Dates Dr. Joey Martines MD Attending Provider, Referring Provider Active Dr. Marian Jackson MD Primary Care Provider Active Team Status: Inactive Member Role Status Dates Dr. Marian Jackson MD Primary Care Provider Active Beth Condon GLAZE HANDLER, GLAZE HANDLER-C Attending Provider Active Team Status: Inactive Member Role Status Dates Dr. Marian Jackson MD Primary Care Provider Active Dr. Hossein Lee DO Attending Provider, Referring Provider Active Team Status: Active Member Role Status Dates Dr. Marian Jackson MD Primary Care Provider Active Alfa Bush GLAZE HANDLER, GLAZE HANDLER-C Attending Provider, Referring Pro vider Active Team Status: Active Member Role Status Dates Dr. Joey Martines MD Attending Provider, Referring Provider Active Dr. Marian Jackson MD Primary Care Provider Active Alfa Bush GLAZE HANDLER, GLAZE HANDLER-C Other Provider Active Team Status: Active Member Role Status Dates Dr. Marian Jackson MD Primary Care Provider Active Dr. Joey Martines MD Attending Provider Active Chante Cao PA, PA Referring Provider Active Team Status: Inactive Member Role Status Dates Dr. Marian Jackson MD Referring Provider Active Beth Condon GLAZE HANDLER, GLAZE HANDLER-C Attending Provider Active Dee Azevedo DO Primary Care Provider Active Team Status: Active Member Role Status Dates Alfa Bush GLAZE HANDLER, GLAZE HANDLER-C Attending Provider, Referring Pro vider Active Dr. Kylah Santizo MD Other Provider Active Dee Azevedo DO Primary Care Provider Active Team Status: Inactive Member Role Status Dates Dee Azevedo DO Primary Care Provider Active Beth Condon GLAZE HANDLER, GLAZE HANDLER-C Attending Provider, Referring Provider Active Team Status: Inactive Member Role Status Dates Dee Azevedo DO Primary Care Provider, Referring Provider Active Dr. Kylah Santizo MD Attending Provider Active Team Status: Active Member Role Status Charles Garnica MD Primary Care Provider Active Team Status: Inactive Member Role Status Charles Garnica MD Primary Care Provider Active St art: February 09, 2024 End: February 09, 2024 Mireille Garnica MD Referring Provider Active Start : February 09, 2024 End: February 09, 2024 Alfa Bush GLAZE HANDLER, GLAZE HANDLER-C Attending Provider Active S tart: February 09, 2024 End: February 09, 2024 Team Status: Inactive Member Role Status Charles Garnica MD Primary Care Provider Active St art: February 10, 2024 End: February 10, 2024 Dr. Avtar Ervin DO Attending Provider Active Start : February 10, 2024 End: February 10, 2024 Dr. Avtar Ervin DO Emergency Provider Active Start : February 10, 2024 End: February 10, 2024 Team Status: Inactive Member Role Status Dates Alfa Bush GLAZE HANDLER, GLAZE HANDLER-C Attending Provider Active S tart: February 19, 2024 End: February 19, 2024 Alfa Bush GLAZE HANDLER, GLAZE HANDLER-C Referring Provider Active S tart: February 19, 2024 End: February 19, 2024 Dr. Kylah Santizo MD Other Provider Active Star t: February 19, 2024 End: February 19, 2024 [facility] Active Start: February 19, 2024 End: February 19, 2024 Team Status: Inactive Member Role Status Charles Bush GLAZE HANDLER, GLAZE HANDLER-C Attending Provider Active S tart: March 14, 2024 End: March 14, 2024 Alfa Bush GLAZE HANDLER, GLAZE HANDLER-C Referring Provider Active S tart: March 14, 2024 End: March 14, 2024 Dr. Kylah Santizo MD Other Provider Active Star t: March 14, 2024 End: March 14, 2024 Mireille Garnica MD Primary Care Provider Active St art: March 14, 2024 End: March 14, 2024 Team Status: Inactive Member Role Status Charles Garnica MD Primary Care Provider Active St art: April 11, 2024 End: April 11, 2024 Mireille Garnica MD Referring Provider Active Start : April 11, 2024 End: April 11, 2024 Alfa Bush GLAZE HANDLER, GLAZE HANDLER-C Attending Provider Active S tart: April 11, 2024 End: April 11, 2024 Team Status: Inactive Member Role Status Dates Alfa Bush GLAZE HANDLER, GLAZE HANDLER-C Attending Provider Active S tart: April 15, 2024 End: April 19, 2024 Alfa Bush GLAZE HANDLER, GLAZE HANDLER-C Referring Provider Active S tart: April 15, 2024 End: April 19, 2024 Dr. Kylah Santizo MD Other Provider Active Star t: April 15, 2024 End: April 19, 2024 Mireille Garnica MD Primary Care Provider Active St art: April 15, 2024 End: April 19, 2024 Team Status: Inactive Member Role Status Charles Garnica MD Primary Care Provider Active St art: May 07, 2024 End: May 07, 2024 Mireille Garnica MD Referring Provider Active Start : May 07, 2024 End: May 07, 2024 Alfa Bush GLAZE HANDLER, GLAZE HANDLER-C Attending Provider Active S tart: May 07, 2024 End: May 07, 2024 Team Status: Inactive Member Role Status Dates Alfa Bush GLAZE HANDLER, GLAZE HANDLER-C Attending Provider Active S tart: May 16, 2024 End: May 16, 2024 Alfa Bush GLAZE HANDLER, GLAZE HANDLER-C Referring Provider Active S tart: May 16, 2024 End: May 16, 2024 Dr. Kylah Santizo MD Other Provider Active Star t: May 16, 2024 End: May 16, 2024 Mireille Garnica MD Primary Care Provider Active St art: May 16, 2024 End: May 16, 2024 Team Status: Active Member Role Status Charles Garnica MD Primary Care Provider Active St art: May 16, 2024 Alfa Bush GLAZE HANDLER, GLAZE HANDLER-C Attending Provider Active S tart: May 16, 2024 Alfa Bush GLAZE HANDLER, GLAZE HANDLER-C Referring Provider Active S tart: May 16, 2024 Team Status: Active Member Role Status Charles Garnica MD Primary Care Provider Active St art: May 16, 2024 Dr. Alex Sol MD Attending Provider Active S tart: May 16, 2024 Team Status: Inactive Member Role Status Charles Garnica MD Primary Care Provider Active St art: May 16, 2024 End: May 16, 2024 Alfa Bush GLAZE HANDLER, GLAZE HANDLER-C Attending Provider Active S tart: May 16, 2024 End: May 16, 2024 Alfa Bush GLAZE HANDLER, GLAZE HANDLER-C Referring Provider Active S tart: May 16, 2024 End: May 16, 2024 Team Status: Inactive Member Role Status Dates Alfa Bush GLAZE HANDLER, GLAZE HANDLER-C Attending Provider Active S tart: June 07, 2024 End: June 19, 2024 Alfa Bush GLAZE HANDLER, GLAZE HANDLER-C Referring Provider Active S tart: June 07, 2024 End: June 19, 2024 Dr. Kylah Santizo MD Other Provider Active Star t: June 07, 2024 End: June 19, 2024 Mireille Garnica MD Primary Care Provider Active St art: June 07, 2024 End: June 19, 2024 Team Status: Inactive Member Role Status Charles Garnica MD Primary Care Provider Active St art: June 28, 2024 End: June 28, 2024 Mireille Garnica MD Referring Provider Active Start : June 28, 2024 End: June 28, 2024 Cortez Louie NP, GLAZE HANDLER-C Attending Provider Active Start: June 28, 2024 End: June 28, 2024 Team Status: Inactive Member Role Status Charles Bush GLAZE HANDLER, GLAZE HANDLER-C Attending Provider Active S tart: July 12, 2024 End: July 12, 2024 Dr. Kylah Santizo MD Other Provider Active Star t: July 12, 2024 End: July 12, 2024 Mireille Garnica MD Primary Care Provider Active St art: July 12, 2024 End: July 12, 2024 Cortez Louie GLAZE HANDLER, GLAZE HANDLER-C Referring Provider Active Start: July 12, 2024 End: July 12, 2024 Team Status: Active Member Role Status Charles Garnica MD Primary Care Provider Active St art: July 19, 2024 Cortez Louie GLAZE HANDLER, GLAZE HANDLER-C Attending Provider Active Start: July 19, 2024 Cortez Louie GLAZE HANDLER, GLAZE HANDLER-C Referring Provider Active Start: July 19, 2024 Team Status: Inactive Member Role Status Charles Garnica MD Primary Care Provider Active St art: July 19, 2024 End: July 19, 2024 Cortez Louie GLAZE HANDLER, GLAZE HANDLER-C Attending Provider Active Start: July 19, 2024 End: July 19, 2024 Cortez Louie GLAZE HANDLER, GLAZE HANDLER-C Referring Provider Active Start: July 19, 2024 End: July 19, 2024 Team Status: Active Member Role/Relationship Status Charles Garnica MD Primary Care Provider Active Team Status: Inactive Member Role/Relationship Status Charles Garnica MD Primary Care Provider Active St art: May 07, 2024 End: May 07, 2024 Mireille Garnica MD Referring Provider Active Start : May 07, 2024 End: May 07, 2024 Alfa Bush GLAZE HANDLER, GLAZE HANDLER-C Attending Provider Active S tart: May 07, 2024 End: May 07, 2024 Team Status: Inactive Member Role/Relationship Status Charles Bush GLAZE HANDLER, GLAZE HANDLER-C Attending Provider Active S tart: May 16, 2024 End: May 16, 2024 Alfa Bush GLAZE HANDLER, GLAZE HANDLER-C Referring Provider Active S tart: May 16, 2024 End: May 16, 2024 Dr. Kylah Santizo MD Other Provider Active Star t: May 16, 2024 End: May 16, 2024 Mireille Garnica MD Primary Care Provider Active St art: May 16, 2024 End: May 16, 2024 Team Status: Inactive Member Role/Relationship Status Charles Garnica MD Primary Care Provider Active St art: May 16, 2024 End: May 16, 2024 Alfa Bush GLAZE HANDLER, GLAZE HANDLER-C Attending Provider Active S tart: May 16, 2024 End: May 16, 2024 Alfa Bush GLAZE HANDLER, GLAZE HANDLER-C Referring Provider Active S tart: May 16, 2024 End: May 16, 2024 Team Status: Active Member Role/Relationship Status Charles Garnica MD Primary Care Provider Active St art: May 16, 2024 Dr. Alex Sol MD Attending Provider Active S tart: May 16, 2024 Team Status: Inactive Member Role/Relationship Status Charles Bush GLAZE HANDLER, GLAZE HANDLER-C Attending Provider Active S tart: June 07, 2024 End: June 19, 2024 Alfa Bush GLAZE HANDLER, GLAZE HANDLER-C Referring Provider Active S tart: June 07, 2024 End: June 19, 2024 Dr. Kylah Santizo MD Other Provider Active Star t: June 07, 2024 End: June 19, 2024 Mireille Garnica MD Primary Care Provider Active St art: June 07, 2024 End: June 19, 2024 Team Status: Inactive Member Role/Relationship Status Dates Mireille Garnica MD Primary Care Provider Active St art: June 28, 2024 End: June 28, 2024 Mireille Garnica MD Referring Provider Active Start : June 28, 2024 End: June 28, 2024 Cortez Louie GLAZE HANDLER, GLAZE HANDLER-C Attending Provider Active Start: June 28, 2024 End: June 28, 2024 Team Status: Inactive Member Role/Relationship Status Dates Alfa Bush GLAZE HANDLER, GLAZE HANDLER-C Attending Provider Active S tart: July 12, 2024 End: July 12, 2024 Dr. Kylah Santizo MD Other Provider Active Star t: July 12, 2024 End: July 12, 2024 Mireille Garnica MD Primary Care Provider Active St art: July 12, 2024 End: July 12, 2024 Cortez Louie GLAZE HANDLER, GLAZE HANDLER-C Referring Provider Active Start: July 12, 2024 End: July 12, 2024 Team Status: Inactive Member Role/Relationship Status Charles Garnica MD Primary Care Provider Active St art: July 19, 2024 End: July 19, 2024 Cortez Louie GLAZE HANDLER, GLAZE HANDLER-C Attending Provider Active Start: July 19, 2024 End: July 19, 2024 Cortez Louie GLAZE HANDLER, GLAZE HANDLER-C Referring Provider Active Start: July 19, 2024 End: July 19, 2024 Team Status: Inactive Member Role/Relationship Status Dates Alfa Bush GLAZE HANDLER, GLAZE HANDLER-C Attending Provider Active S tart: August 13, 2024 End: August 13, 2024 Dr. Kylah Santizo MD Other Provider Active Star t: August 13, 2024 End: August 13, 2024 Mireille Garnica MD Primary Care Provider Active St art: August 13, 2024 End: August 13, 2024 Cortez Louie GLAZE HANDLER, GLAZE HANDLER-C Referring Provider Active Start: August 13, 2024 End: August 13, 2024 Team Status: Active Member Role/Relationship Status Dates Alfa Bush NP, GLAZE HANDLER-C Attending Provider Active S tart: August 21, 2024 Dr. Kylah Santizo MD Other Provider Active Star t: August 21, 2024 Mireille Garnica MD Primary Care Provider Active St art: August 21, 2024 Cortez Louie GLAZE HANDLER, GLAZE HANDLER-C Referring Provider Active Start: August 21, 2024 Team Status: Inactive Member Role/Relationship Status Dates Mireille Garnica MD Primary Care Provider Active St art: August 26, 2024 End: August 26, 2024 Mireille Garnica MD Referring Provider Active Start : August 26, 2024 End: August 26, 2024 Alfa Bush GLAZE HANDLER, GLAZE HANDLER-C Attending Provider Active S tart: August 26, 2024 End: August 26, 2024 FOR RECORDS PERTAINING TO PATIENTS WHO ARE OR HAVE BEEN ENROLLED IN A CHEMICAL DEPENDENCY/SUBSTANCEABUSE PROGRAM, SOME INFORMATION MAY BE OMITTED. This clinical summary was aggregated from multiple sources. Caution should be exercised in using it in the provision of clinical care. This summary normalizes information from multiple sources, and as a consequence, information in this document may materially change the coding, format and clinical context of patient data. In addition, data may be omitted in some cases. CLINICAL DECISIONS SHOULD BE BASED ON THE PRIMARY CLINICAL RECORDS. [facility] [employer] provides no warranty or guarantee of the accuracy or completeness of information in this document.
== END | disposition home or self-care (01) ==
LOC: CVS 06:51
PROVIDERS: PCP Family Medicine; Referring Provider Nurse Practitioner Family; Visit Provider Nurse Practitioner Family
DX: R06.09 Other forms of dyspnea (principal); Z95.2 Presence of prosthetic heart valve
CPT/HCPCS: 93308

== ENCOUNTER → 2024-09-21 | Outpatient (CLI) | payer MEDICARE, BC, SELFPAY ==
--- NOTE | 2024-09-21 07:40 | US_ITS ---
PROCEDURE: KIDNEY AND BLADDER 09/21/2024 REASON FOR EXAM: CKD 4 Elevated BUN and creatinine TECHNIQUE: KIDNEY AND BLADDER FINDINGS: Right kidney measures 9.1 x 4.3 x 3.7 cm. No hydronephrosis, calculi, or suspicious mass lesion. Cortex measures 1.6 cm. There is a simple 1.8 cm exophytic cyst. Left kidney measures 8.6 x 3.9 x 4 cm. No hydronephrosis, calculi or mass. Cortex measures 1.1 cm, no suspicious solid or cystic mass. Bladder is incompletely distended with capacity measuring 78 mm. No wall thickness is noted there is evidence of echogenic debris within the urine which raises a possibility of proteinuria which can be seen with inflammatory process. Please correlate with urinalysis US/Kidney and Bladder IMPRESSION: No obstructive uropathy or suspicious solid renal lesion. Simple right renal c yst, no specific follow-up needed. Echogenic debris within the urine suggests the possibility of inflammation. Pl ease correlate with urinalysis Reading Location: [id number]
--- OUTSIDE RECORDS SUMMARY | 2024-09-21 10:05 | XMS RPT_ITS | CCD ---
Author Organization [facility] Care Team Providers Care Division Engineer Name Role Phone Vi HILL, Scarlett Rojas Unavailable Unavailable Morro RN, Kylah M Unavailable Unavailabl e Morro RN, Kylah M Unavailable Unavailabl livier Hooker RN, Kylah M Unavailable Unavailabl e [facility] Nurse Unavailable Unavailable SERGIO Hooker, Kylah M Unavailable Unavailjeb Lebron RN, Scarlett A Unavailable Unavailable SERGIO Hooker, Kylah M Unavailable Unavailabl livier Hooker RN, Kylah M Unavailable Unavailabl livier Lebron RN, Scarlett A Unavailable Unavailable SERGIO Hooker, Kylah M Unavailable Unavailabl e Morro RN, Kylah M Unavailable Unavailabl e DeFinis, Harumi Y Unavailable Unavailable DeFinis, Harumi Y Unavailable Unavailable DeFinis, Harumi Y Unavailable Unavailable Hassan, Chetna Unavailable Unavailable BETH CONDON (SALES TRAINEE) Unavailable Unavailable Hassan, Chetna Unavailable Unavailable SERGIO Hooker, Kylah M Unavailable Unavailabl e Morro, RN, Kylah M Unavailable Unavailabl livier Hooker RN, Kylah M Unavailable Unavailabl e Morro RN, Kylah M Unavailable Unavailabl e Care Physician, No Primary Primary Care Provider Unavailable Dr. Joey Martines Referring Provider Dr. Joey Martines Other Provider Dr. Jhon Butterfield Attending Provider Dr. Alfa Freedman Referring Provider Roof SALES TRAINEE, SALES TRAINEE-Leyda Fowler Attending Provider Care Physician, No Primary Primary Care Provider Unavailable Dr. Alfa Oakes Primary Care Provider [phone] Dr. Alfa Oakes Attending Provider [phone] Dr. Alfa Oakes Referring Provider Dr. Marian Jackson Attending Provider [phone] Care Physician, No Primary Referring Provider Un available Roseanna SALES TRAINEE, SALES TRAINEE-C Beth Attending Provider [phone] Dr. Marian Jackson Primary Care Provider Dr. Marian Jackson Referring Provider [phone] Dr. Hossein Lee Attending Provider Dr. Alfa Oakes Primary Care Provider Dr. Alfa Oakes Primary Care Provider Dr. Alfa Oakes Referring Provider Dr. Marian Jackson Attending Provider [phone] Care Physician, No Primary Referring Provider Un available Onaka SALES TRAINEE, SALES TRAINEE-C Beth Attending Provider [phone] Dr. Marian Jackson Primary Care Provider Dr. Marian Jackson Referring Provider [phone] Dr. Hossein Lee Attending Provider [phone] Roof SALES TRAINEE, SALES TRAINEE-C Alfa Fowler Attending Provider 1([facility])[phone] Dr. Reggie Garcia Attending Provider [phone] Marian Jackson Attending Provider 1([facility]) [phone] Roof SALES TRAINEE, SALES TRAINEE-C Alfa Fowler Referring Provider 1([facility])[phone] Dr. Tunde Monet Attending Provider [phone] Dr. Alex Sol Attending Provider Dr. Marian Jackson Primary Care Provider Care Physician, No Primary Referring Provider Un available Dr. Marian Jackson Primary Care Provider Dr. Marian Jackson Referring Provider [phone] Dr. Marian Jackson Attending Provider [phone] Dr. Marian Jackson Primary Care Provider Dr. Marian Jackson Referring Provider Dr. Joey Martines Attending Provider [phone] FELIPA James Referring Provider Dr. Marian Jackson Primary Care Provider Dr. Marian Jackson Attending Provider [phone] Dr. Marian Jackson Referring Provider [phone] Dr. Joey Martines Attending Provider [phone] FELIPA James Referring Provider Roof SALES TRAINEE, SALES TRAINEE-C Alfa Fowler Attending Provider Dr. Tunde Monet Attending Provider [phone] Dr. Alex Sol Attending Provider Dr. Marian Jackson Primary Care Provider Dr. Marian Jackson Referring Provider [phone] Dr. Joey Martines Attending Provider Dr. Marian Jackson Primary Care Provider Roof SALES TRAINEE, SALES TRAINEE-C Alfa Fowler Attending Provider Dr. Marian Jackson Primary Care Provider Dr. Marian Jackson Attending Provider [phone] Care Physician, No Primary Referring Provider Un available Roof SALES TRAINEE, SALES TRAINEE-Leyda Fowler Attending Provider Dr. Marian Jackson Primary Care Provider Dr. Marian Jackson Referring Provider [phone] Roseanna SALES TRAINEE, SALES TRAINEE-C Beth Attending Provider [phone] DO Dee Azevedo Primary Care Provider Care Physician, No Primary Referring Provider Un available Roof SALES TRAINEE, SALES TRAINEE-C Alfa Fowler Attending Provider Dr. Marian Jackson Primary Care Provider Dr. Marian Jackson Referring Provider [phone] Roseanna SALES TRAINEE, SALES TRAINEE-C Beth Attending Provider [phone] DO eDe Azevedo Primary Care Provider DO Dee Azevedo [...] GORE, Mireille Primary Care Provider [phone] Mireille Garnica MD Referring Provider [phone] Roof SALES TRAINEE-C, Alfa Fowler Attending Provider Dr. Avtar Erivn DO Attending Provider [phone] Dr. Avtar Ervin DO Emergency Provider Roof SALES TRAINEE-C, Alfa Fowler Referring Provider Sukhdev GORE, Dr. Montero Other Provider Becca Azevedo DO Primary Care Provider Ebenezer GORE, Dr. Johnson Attending Provider [phone] NAHUN GORE, MIREILLE Primary Care Physician [phone] NAUHN GORE, MIREILLE Primary Care Unavailable LINA ALCANTARA DO Consulting Unavailable JAIME GORE, EMMANUEL Rojas Admitting Unavailable JAIME GORE, EMMANUEL Rojas Attending Unavailable NAHUN GORE, MIREILLE Primary Care Unavailable JAIME GORE, EMMANUEL Rojas Attending Unavailable Nahun GORE, Mireille Primary Care Provider [phone] Mireille Garnica MD Referring Provider [phone] Roof SALES TRAINEE-C, Alfa H Attending Provider [phone] Roof SALES TRAINEE-C, Alfa H Referring Provider [phone] Sukhdev GORE, Dr. Montero Other Provider [phone] Louie SALES TRAINEE-C, Hien Attending Provider [phone] Louie SALES TRAINEE-C, Hien Referring Provider [phone] Nahun GORE, Mireille Primary Care Provider [phone] Nahun GORE, Mireille Referring Provider Roof SALES TRAINEE-C, Alfa H Attending Provider [phone] Roof SALES TRAINEE-C, Alfa H Referring Provider [phone] Sukhdev GORE, Dr. Montero Other Provider [phone] Roof SALES TRAINEE-C, Alfa H Attending Provider [phone] Roof SALES TRAINEE-C, Alfa H Referring Provider [phone] Sukhdev GORE, Dr. Montero Other Provider [phone] [facility] Primary [facility] Provider [phone] Nahun GORE, Mireille Referring Provider [phone] Elda GORE, Dr. Langley Attending Provider Ebenezer GORE, Dr. Johnson Attending Provider [phone] Roof SALES TRAINEE, Alfa Fowler Attending Unavailable Roof SALES TRAINEE, Alfa H Referring Unavailable Roberto Carlos, Becca Primary Care Unavailable Sukhdev, Kylah Consulting Unavailable Roof SALES TRAINEE, Alfa Fowler Attending Unavailable Roof SALES TRAINEE, Alfa H Referring Unavailable Nahun, Chalon Primary Care Unavailable Roof SALES TRAINEE, Alfa H Attending Unavailable Louie SALES TRAINEEHien Referring Unavailable Nahun, Chalon Primary Care Unavailable Sukhdev, Kylah Consulting Unavailable Belal, Duaneouk Attending Unavailable Nahun, Chalon Primary Care Unavailable Alex Sol Attending Unavailable Nahun, Chalon Primary Care Unavailable Roof SALES TRAINEE, Alfa H Attending Unavailable Nahun, Chalon Referring Unavailable Nahun, Chalon Primary Care Unavailable Roof SALES TRAINEE, Alfa H Attending Unavailable Nahun, Chalon Referring Unavailable Nahun, Chalon Primary Care Unavailable Roof SALES TRAINEE, Alfa H Attending Unavailable Nahun, Chalon Referring Unavailable Nahun, Chalon Primary Care Unavailable Roof SALES TRAINEE, Alfa H Attending Unavailable Nahun, Chalon Referring Unavailable Nahun, Chalon Primary Care Unavailable Roof SALES TRAINEE, Alfa H Attending Unavailable Roof SALES TRAINEE, Alfa Fowler Referring Unavailable Nahun, Chalon Primary Care Unavailable Roof SALES TRAINEE, Alfa Fowler Attending Unavailable Louie SALES TRAINEE, Hien Referring Unavailable Nahun, Chalon Primary Care Unavailable Sukhdev, Kylah Consulting Unavailable Roof SALES TRAINEE, Alfa Fowler Attending Unavailable Roof SALES TRAINEE, Alfa H Referring Unavailable Roberto Carlos, Becca Primary Care Unavailable Sukhdev, Kylah Consulting Unavailable Onaka SALES TRAINEE, Beth Attending Unavailable Roseanna SALES TRAINEE, Beth Referring Unavailable Roberto Carlos, Becca Primary Care Unavailable Roof SALES TRAINEE, Alfa Fowler Attending Unavailable Roof SALES TRAINEE, Alfa H Referring Unavailable Roberto Carlos, Becca Primary Care Unavailable Sukhdev, Kylah Consulting Unavailable Roof SALES TRAINEE, Alfa Fowler Attending Unavailable Roof SALES TRAINEE, Alfa H Referring Unavailable Nahun, Chalon Primary Care Unavailable Roof SALES TRAINEE, Alfa Fowler Attending Unavailable Roof SALES TRAINEE, Alfa H Referring Unavailable Nahun, Chalon Primary Care Unavailable Louie SALES TRAINEE, Hien Attending Unavailable Louie SALES TRAINEE, Hien Referring Unavailable Nahun, Chalon Primary Care Unavailable Roof SALES TRAINEE, Alfa Fowler Attending Unavailable Nahun, Chalon Primary Care Unavailable Sukhdev, Kylah Consulting Unavailable Louie SALES TRAINEE, Hien Referring Unavailable Roof SALES TRAINEE, Alfa Fowler Attending Unavailable Roof SALES TRAINEE, Alfa Fowler Referring Unavailable Nahun, Chalon Primary Care Unavailable Sukhdev, Kylah Consulting Unavailable Roof SALES TRAINEE, Alfa Fowler Attending Unavailable Roof SALES TRAINEE, Alfa Fowler Referring Unavailable Nahun, Chalon Primary Care Unavailable Sukhdev, Kylah Consulting Unavailable Roof SALES TRAINEE, Alfa Fowler Attending Unavailable Roof SALES TRAINEE, Alfa Fowler Referring Unavailable Roberto Carlos, Becca Primary Care Unavailable Sukhdev, Kylah Consulting Unavailable Roof SALES TRAINEE, Alfa Fowler Attending Unavailable Nahun, Chalon Referring Unavailable Nahun, Chalon Primary Care Unavailable Roof SALES TRAINEE, Alfa Fowler Attending Unavailable Roberto Carlos, Becca Referring Unavailable Nahun, Chalon Primary Care Unavailable Roof SALES TRAINEE, Alfa Fowler Attending Unavailable Roof SALES TRAINEE, Alfa Fowler Referring Unavailable Nahun, Chalon Primary Care Unavailable Sukhdev, Kylah Consulting Unavailable Roof SALES TRAINEE, Alfa Fowler Attending Unavailable Roof SALES TRAINEE, Alfa Fowler Referring Unavailable Nahun, Chalon Primary Care Unavailable Sukhdev, Kylah Consulting Unavailable Nahun, Chalon Primary Care Unavailable Avtar Ervin Attending Unavailable Louie SALES TRAINEE, Hien Attending Unavailable Nahun, Chalon Referring Unavailable Nahun, Chalon Primary Care Unavailable [place]ene[place] Attending Unavailable Nahun, Chalon Primary Care Unavailable Allergies Allergy Classification Reported Allergen(s) Allergy Type Date of Onset Reaction(s) Facility (20 sources) atorvastatin drug allergy 04-29-201 6 myalgias [facility] Work Phone: (20 sources) Penicillins (Antibiotic) drug allergy 1 Hives [facility] Work Phone: (1 source) ampicillin; 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: [AMPICILLIN] Drug Allergy 6 AOF [facility] Repository (20 sources) Latex; 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: [LATEX] Propensity to adverse reactions to drug (disorder) 6 Eruption of skin (disorder) [facility] Repository (20 sources) Penicillins; 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: [PENICILLINS] Propensity to adverse reactions to drug (disorder) 6 AOF, Rash [facility] Repository (6 sources) Amiodarone Drug Allergy 1 shortness of breath with medical terminologist use [facility] Work Phone: (2 sources) Penicillin; 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: [penicillins] Drug Allergy Unknown [facility] Medications Current Medications Medication Drug Class(es) [...] TYLENOL 325 MG TABS as needed ACETAMINOPHEN [id number] Scarlett Lebron RN amiodarone hydrochloride 200 mg [...] July 24, 2023 11:05am Use acct. number [id number] for proper billing (pt has 2 accounts) Start: 05-02-2023 Amiodarone Act jolie 100 MG PO DAILY 45 May 02, 2023 3:10pm Use acct. number [id number] for proper billing (pt has 2 accounts) Start: 01-19-2022 End: 05-02-2023 Amiodarone 200 mg tablet Discontinued 100 mg PO DAILY 45 March 16, 2022 11:55am May 02, 2023 3:14pm Order Number: [id number] Start: 01-19-2022 End: 05-02-2023 take 100 mg by mouth once daily Amiodarone Discontinue d 100 MG PO DAILY 45 March 16, 2022 11:55am May 02, 2023 3:14pm Order Number: [id number] Start: 11-23-2018 End: 01-19-2022 take 1 tablet by mouth once daily Amiodarone 200 mg tablet Discontinued 200 mg PO DAILY 90 4 March 18, 2021 2:48pm June 28, 2021 10:35am Start: 07-07-2017 End: 07-26-2018 Amiodarone (Pacerone) 200 mg tablet Discontinued 100 mg PO .COMPLEX 45 3 July 26, 2018 11:46am July 26, 2018 12:19pm Bill 's INSURANCE [employer] [facility] 100 mg PO daily: NEEDS PACERONE NELLY, [...] daily for five days then AMIODARONE HCL [id number] Kylah Hooker RN ascorbic acid 1000 mg [...] TBEC One tablet by mouth daily ASPIRIN [id number] Denise Resendez Start: 12-10-2007 take 1 tablet by derrick th once daily ECOTRIN LOW STRENGTH 81 MG TBEC One tablet by mouth daily ASPIRIN [id number] Kylah Hooker RN Aspirin EC 81 mg oral delaye d release tablet (2 sources) Start: 06-17-2024 Aspirin EC 81 mg oral delayed release tablet Dose : 81 mg = 1 tab(s), Oral, qDay Start Date: 06/17/24 Status: Ordered Repeat number: 1 BP Machine and Cuff (20 sources) Start: 02-24-2021 BP Machine and Cuff Active 0 .Route .MEDSUPPLY 1 February 24, 2021 1:04pm 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 Monitor BP and HR Start: 02-24-2021 BP Machine and Cuff Active 0 .Route .MEDSUPPLY February 24, 2021 12:04pm Monitor BP and HR Start: 02-24-2021 BP Machine and Cuff Active 0 .Route .MEDSUPPLY February 24, 2021 1:04pm Monitor BP and [...] .Route .MEDSUPPLY 1 0 February 22, 2021 1:00am February 22, 2021 5:23pm 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 Monitor BP and HR Start: 02-22-2021 End: 02-22-2021 BP Machine and Cuff Disconti nued 0 .Route .MEDSUPPLY February 22, 2021 12:00am February 22, 2021 [...] Start: 01-03-2022 take 1 tablet by derrick once daily Cholecalciferol (Vitamin D3) 125 mcg [...] mg SC .COMPLEX as needed for Bridging 6 February 22, 2024 10:20am 60 mg subcutaneously every [...] and then postop as directed ENOXAPARIN SODIUM [id number] Reed Monet MD Start: 07-30-2015 End: 08-11-2015 LOVENOX 60 MG/0.6ML SOLN Pt actually taking 70 mg sc twice daily until INR it therapeutic ENOXAPARIN SODIUM [id number] Kylah Hooker RN Start: 07-30-2015 End: 08-11-2015 LOVENOX 60 MG/0.6ML SOLN Pt actually taking 70 mg sc twice daily until INR it therapeutic ENOXAPARIN SODIUM [id number] Kylah Hooker RN Start: 07-30-2015 LOVENOX 60 MG/ 0.6ML SOLN Pt actually taking 70 mg sc twice daily until INR it therapeutic ENOXAPARIN SODIUM [id number] Reed Monet MD Start: 07-30-2015 End: 08-11-2015 LOVENOX 60 MG/0.6ML SOLN Pt actually taking 70 mg sc twice daily until INR it therapeutic ENOXAPARIN SODIUM [id number] Kylah Hooker RN Start: 07-30-2015 LOVENOX 60 MG/ 0.6ML SOLN Pt actually taking 70 mg sc twice daily until INR it therapeutic ENOXAPARIN SODIUM [id number] Reed Monet MD Start: 12-16-2014 LOVENOX 80 MG/ 0.8ML SOLN one injection twice daily as directed ENOXAPARIN SODIUM [id number] Reed Monet MD Start: 12-16-2014 LOVENOX 80 MG/ 0.8ML SOLN one injection twice daily as directed ENOXAPARIN SODIUM [id number] Kylah Hooker RN Start: 12-16-2014 End: 02-09-2015 LOVENOX 80 MG/0.8ML SOLN one injection twice daily as directed ENOXAPARIN SODIUM [id number] Reed Monet MD Start: 12-16-2014 LOVENOX 80 MG/ 0.8ML SOLN one injection twice daily as directed ENOXAPARIN SODIUM [id number] Reed Monet MD Start: 12-16-2014 LOVENOX 80 MG/ 0.8ML SOLN one injection twice daily as directed ENOXAPARIN SODIUM [id number] Kylah Hooker RN Start: 12-16-2014 End: 02-09-2015 LOVENOX 80 MG/0.8ML SOLN one injection twice daily as directed ENOXAPARIN SODIUM [id number] Reed Monet MD Start: 01-27-2014 End: 02-09-2015 LOVENOX 80 MG/0.8ML SOLN one injection twice daily as directed ENOXAPARIN SODIUM [id number] Reed Monet MD Start: 01-27-2014 take 1 tablet by derrick th twice daily LOVENOX 80 MG/0.8ML SOLN One tablet by mouth twice daily ENOXAPARIN SODIUM [id number] Kylah Hooker RN Start: 01-27-2014 End: 12-16-2014 LOVENOX 80 MG/0.8ML SOLN One subcutaneous injection twice daily. ENOXAPARIN SODIUM [id number] Reed Monet MD Start: 01-27-2014 LOVENOX 80 MG/ 0.8ML SOLN One subcutaneous injection twice daily. ENOXAPARIN SODIUM [id number] Reed Monet MD Start: 01-27-2014 take 1 tablet by derrick th twice daily LOVENOX 80 MG/0.8ML SOLN One tablet by mouth twice daily ENOXAPARIN SODIUM [id number] Kylah Hooker RN Start: 01-27-2014 End: 12-16-2014 LOVENOX 80 MG/0.8ML SOLN One subcutaneous injection twice daily. ENOXAPARIN SODIUM [id number] Reed Monet MD Start: 01-27-2014 LOVENOX 80 MG/ 0.8ML SOLN One subcutaneous injection twice daily. ENOXAPARIN SODIUM [id number] Reed Monet MD furosemide 40 mg oral tablet (20 sources) Loop Diuretic Start: 03-29-2024 Furosemide 40 mg tablet Active 40 mg PO .COMPLEX 90 March 29, 2024 1:00am 40 mg orally DAILY: Pharmacy Please use account [id number]; Start: 12-29-2023 End: 03-29-2024 take 2 tablets [...] TABS One tablet by mouth daily FUROSEMIDE [id number] Reed Monet MD Vitamin C 250 mg oral tablet (2 sources) Start: 06-17-2024 Vitamin C 250 mg oral tablet Dose : 500 mg = 2 tab(s), Oral, qDay Start Date: 06/17/24 Status: Ordered Repeat number: 1 warfarin sodium 1 mg oral tablet (20 sources) Vitamin K Antagonist Start: 05-20-2024 End: 09-16-2024 take 1.5 mg by mouth once daily Warfarin 1 mg tablet Active 1 mg PO .COMPLEX 180 3 September 16, 2024 2:07pm 1.5 mg (1.5 tablets) every day; OR DIRECTED; Use acct. number [id number] for proper billing Please contact the information [...] the week OR DIRECTED; Use acct. number [id number] for proper billing Please contact the information source for Protocol details. Start: 09-28-2021 End: 05-02-2023 take 1.5 mg by mouth once daily Warfarin Discontinued 1.5 MG PO .COMPLEX 120 March 16, 2022 11:57am May 02, 2023 3:13pm 1.5 mg orally; 1.5 mg daily or as directed; Order Number: [id number] Start: 09-28-2021 End: 12-28-2023 Warfarin 1 mg tablet Discont inued 1 mg PO .COMPLEX 135 May 02, 2023 3:13pm December 28, 2023 1:57pm 1 mg orally 1.5 mg (1.5 tablets) every day except 2 tablets (2mg) on Tuesdays; OR DIRECTED; Use acct. number [id number] for proper billing (pt has 2 accounts) [...] as directed: 3.5 mg daily WARFARIN SODIUM [id number] Chante Paige RN Start: 07-23-2015 End: 06-19-2017 [...] x 4 days a week WARFARIN SODIUM [id number] Reed Monet MD Start: 11-23-2012 COUMADIN 1 MG TABS 3.5 mg daily four days per week; take 4 mg the other 3 days per week NELLY WARFARIN SODIUM [id number] Reed Monet MD Start: 11-23-2012 COUMADIN 3 MG TABS 3.5 mg daily four days per week; take 4 mg the other 3 days per week WARFARIN SODIUM [id number] Reed Monet MD Start: 08-01-2012 COUMADIN 1 MG TABS 3.5 mg every day: use with 2 mg tablets to = 3.5 NELLY WARFARIN SODIUM [id number] Alex Sol MD Start: 05-02-2011 End: 06-19-2015 COUMADIN 2 MG TABS 3 tablets by mouth Monday, 2 tablets by mouth Monday thru Monday in the [id number] generic WARFARIN SODIUM [id number] Kylah Hooker RN Start: 04-20-2010 End: 09-18-2019 take 1 tablet by mouth two times weekly Warfarin (Coumadin) 3 mg tablet Discontinued 3 mg PO TWICE A WEEK 30 0 June 28, 2017 10:11am June 28, 2017 10:54am Start: 04-20-2010 COUMADIN 1 MG TABS take as directed WARFARIN SODIUM [id number] Kylah Hooker RN Start: 04-20-2010 End: 07-30-2015 COUMADIN 4 MG TABS One table t by mouth four days a week and one and one half tablet three days a week. Take as directed WARFARIN SODIUM [id number] Reed Monet MD Start: 04-20-2010 End: 01-18-2016 take 1 tablet by mouth once daily COUMADIN 4 MG TABS NELLY One tablet by mouth daily WARFARIN SODIUM [id number] Reed Monet MD Completed/Discontinued Medications Medication Drug Class(es) Dates Sig (Normalized) Sig (Original) atorvastatin 80 mg oral tablet (20 sources) HMG-CoA Reductase Inhibitor Start: 04-20-2010 End: 06-19-2015 take 1 tablet by mouth once daily LIPITOR 80 MG TABS One tablet by mouth daily NELLY ATORVASTATIN CALCIUM [id number] Reed Monet MD calcium carbonate / vitamin D (20 sources) Start: 07-24-2007 End: 01-29-2013 take 1 tablet by mouth twice daily CALCIUM CARBONATE-VITAMIN D 600-125 MG-UNIT TABS One tablet by mouth twice daily CALCIUM CARBONATE-VITAMIN D [id number] Reed Monet MD Start: 07-24-2007 take 1 tablet by derrick twice daily CALCIUM CARBONATE-VITAMIN D 600-125 MG-UNIT TABS One tablet by mouth twice daily CALCIUM CARBONATE-VITAMIN D [id number] Denise Resendez Start: 07-24-2007 End: 01-29-2013 take 1 tablet by mouth twice daily CALCIUM CARBONATE-VITAMIN D 600-125 MG-UNIT TABS One tablet by mouth twice daily CALCIUM CARBONATE-VITAMIN D [id number] Reed Monet MD Start: 07-24-2007 take 1 tablet by derrick twice daily CALCIUM CARBONATE-VITAMIN D 600-125 MG-UNIT TABS One tablet by mouth twice daily CALCIUM CARBONATE-VITAMIN D [id number] Denise Resendez clobetasol propionate 0.0005 mg/mg topical [...] IQD take as directed CLOBETASOL PROPIONATE LIQD [id number] Reed Monet MD Start: 01-29-2013 End: 01-27-2014 CLOBEX SPRAY LIQD take as di rected CLOBETASOL PROPIONATE LIQD [id number] Reed Monet MD Start: 01-29-2013 CLOBEX SPRAY L IQD take as directed CLOBETASOL PROPIONATE LIQD [id number] Reed Monet MD Start: 01-29-2013 End: 01-27-2014 CLOBEX SPRAY LIQD take as di rected CLOBETASOL PROPIONATE LIQD [id number] Reed Monet MD desonide 0.5 mg/ml topical cream (20 sources) Corticosteroid Start: 01-07-2002 End: 01-29-2013 DESOWEN CREAM W/CETAPHIL LOT 0.05 % KIT Take as directed DESONIDE CREA-MOISTURIZING LOT [id number] Reed Monet MD Start: 01-07-2002 End: 01-29-2013 DESOWEN CREAM W/CETAPHIL LOT 0.05 % KIT Take as directed DESONIDE CREA-MOISTURIZING LOT [id number] Reed Monet MD Start: 01-07-2002 DESOWEN CREAM W/CETAPHIL LOT 0.05 % KIT Take as directed DESONIDE CREA-MOISTURIZING LOT [id number] Denise Resendez oxyquinoline sulfate 0.81534 mg/mg / sodium dodecyl sulfate 0.0001 mg/mg [...] 12:00am September 28, 2021 10:00am estrogens, conjugated (assisted) 0.625 mg/ml vaginal cream (20 sources) Estrogen [...] TABS One tablet by mouth daily HYDROCHLOROTHIAZIDE [id number] Scarlett Lebron RN ketoconazole 20 mg/ml medicated shampoo (20 sources) Azole Antifungal Start: 01-07-2002 End: 01-29-2013 NIZORAL 2 % SHAM Take as directed KETOCONAZOLE [id number] Denise Resendez Start: 01-07-2002 NIZORAL 2 % SH AM Take as directed KETOCONAZOLE [id number] Denise Goldberg Resendez Start: 01-07-2002 End: 01-29-2013 NIZORAL 2 % SHAM Take as dir ected KETOCONAZOLE [id number] Reed Monet MD LACTOBACILLUS CAPS (20 sources) Start: 12-16-2014 End: 02-09-2015 take 1 tablet by mouth once daily ACIDOPHILUS CAPS One tablet by mouth daily LACTOBACILLUS CAPS [id number] Reed Monet MD Start: 12-16-2014 take 1 tablet by derrick th once daily ACIDOPHILUS CAPS One tablet by mouth daily LACTOBACILLUS CAPS [id number] Reed Monet MD Start: 12-16-2014 take 1 tablet by derrick th once daily ACIDOPHILUS CAPS One tablet by mouth daily LACTOBACILLUS CAPS [id number] Reed Monet MD Start: 12-16-2014 End: 02-09-2015 take 1 tablet by mouth once daily ACIDOPHILUS CAPS One tablet by mouth daily LACTOBACILLUS CAPS [id number] Reed Monet MD LACTOBACILLUS CAPS (10 sources) Start: 12-16-2014 take 1 tablet by mouth once daily ACIDOPHILUS CAPS One tablet by mouth daily LACTOBACILLUS CAPS [id number] Reed Monet MD Start: 12-16-2014 End: 02-09-2015 take 1 tablet by mouth once daily ACIDOPHILUS CAPS One tablet by mouth daily LACTOBACILLUS CAPS [id number] Reed Monet MD Start: 12-16-2014 take 1 tablet by derrick th once daily ACIDOPHILUS CAPS One tablet by mouth daily LACTOBACILLUS CAPS [id number] Reed Monet MD Start: 12-16-2014 End: 02-09-2015 take 1 tablet by mouth once daily ACIDOPHILUS CAPS One tablet by mouth daily LACTOBACILLUS CAPS [id number] Reed Monet MD lisinopril 2.5 mg oral tablet (20 sources) Angiotensin Converting Enzyme Inhibitor Start: 04-20-2010 End: 02-09-2015 ZESTRIL 2.5 MG TABS on hold post AVR LISINOPRIL [id number] Reed Monet MD losartan potassium 25 mg oral tablet (20 sources) Angiotensin 2 Receptor Eloy Start: 01-17-2023 End: 03-29-2024 take 1 tablet by mouth once daily Losartan 25 mg tablet Discontinued 25 mg PO DAILY 90 3 May 02, 2023 3:11pm March 29, 2024 [...] 50 mg PO TWICE A DAY 180 3 May 07, 2024 2:39pm May 13, 2024 3:02pm Start: 01-22-2024 End: 05-07-2024 take 1 tablet by mouth twice daily Metoprolol Tartrate 100 mg tablet Discontinued 100 mg PO TWICE A DAY 180 3 January 22, 2024 1:00am May 07, 2024 2:40pm Start: 01-15-2024 End: 01-22-2024 take 2 tablets by mouth twice daily Metoprolol Tartrate 50 mg tablet Discontinued 50 mg PO .COMPLEX 180 3 January 15, 2024 5:00pm January 22, 2024 12:03pm 50 mg orally twice a day, this is a dose increase; Use acct. number [id number] for proper billing (pt has 2 accounts); Start: 09-26-2023 End: 01-15-2024 take 2 tablets by mouth twice daily Metoprolol Tartrate 25 mg tablet Discontinued 37.5 mg PO .COMPLEX 270 September 26, 2023 1:46pm January 15, 2024 5:01pm 37.5 mg orally twice a day, this is a dose increase; Use acct. number [id number] for proper billing (pt has 2 accounts) Start: 08-07-2023 End: 09-26-2023 Metoprolol Tartrate 25 mg ta blet Discontinued 37.5 mg PO TWICE A DAY 270 September 26, 2023 1:44pm September 26, 2023 [...] hr Discontinued 25 mg PO DAILY 90 March 25, 2021 10:09am September 28, 2021 10:03am Must be name brand: generic causes palpitations. 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 Start: 07-31-2015 take 1 tablet by derrick th once daily TOPROL XL 50 MG [id number] (ER) One half tablet by mouth daily METOPROLOL SUCCINATE [id number] Kylah Hooker RN Start: 07-31-2015 take 1 tablet by derrick th once daily TOPROL XL 50 MG [id number] (ER) One half tablet by mouth daily METOPROLOL SUCCINATE [id number] 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 Michael 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 Start: 07-31-2015 take 1 tablet by derrick th once daily TOPROL XL 50 MG [id number] (ER) One half tablet by mouth daily METOPROLOL SUCCINATE [id number] Kylah Hooker RN Start: 05-16-2014 End: 06-14-2017 [...] mouth twice daily TOPROL XL 50 MG [id number] One tablet by mouth twice daily METOPROLOL SUCCINATE [id number] Scarlett Lebron RN Start: 04-20-2010 take 1 tablet by derrick th once daily TOPROL XL 50 MG [id number] One tablet by mouth daily METOPROLOL SUCCINATE [id number] Reed Monet MD Start: 04-20-2010 End: 07-30-2015 take 1 tablet by mouth twice daily TOPROL XL 50 MG [id number] One tablet by mouth twice daily METOPROLOL SUCCINATE [id number] Scarlett Lebron RN Start: 04-20-2010 take 1 tablet by derrick th twice daily TOPROL XL 50 MG [id number] One tablet by mouth twice daily METOPROLOL SUCCINATE [id number] Reed Monet MD Start: 04-20-2010 take 1 tablet by derrick th twice daily TOPROL XL 50 MG [id number] One half tablet by mouth twice daily METOPROLOL SUCCINATE [id number] Reed Monet MD Start: 04-20-2010 take 1 tablet by derrick th once daily TOPROL XL 50 MG [id number] One tablet by mouth daily METOPROLOL SUCCINATE [id number] Reed Monet MD Start: 04-20-2010 End: 07-30-2015 take 1 tablet by mouth twice daily TOPROL XL 50 MG [id number] One tablet by mouth twice daily METOPROLOL SUCCINATE [id number] Scarlett Lebron RN Start: 04-20-2010 take 1 tablet by derrick th twice daily TOPROL XL 50 MG [id number]-[id number] One tablet by mouth twice daily METOPROLOL SUCCINATE [id number] Reed Monet MD Start: 04-20-2010 take 1 tablet by derrick th twice daily TOPROL XL 50 MG [id number] One half tablet by mouth twice daily METOPROLOL SUCCINATE [id number] Reed Monet MD mometasone furoate 0.001 mg/mg topical ointment (20 sources) Corticosteroid Start: 01-07-2002 End: 01-29-2013 ELOCON 0.1 % OINT Take as directed MOMETASONE FUROATE [id number] Reed Monet MD Start: 01-07-2002 End: 01-29-2013 ELOCON 0.1 % OINT Take as di rected MOMETASONE FUROATE [id number] Reed Monet MD Start: 01-07-2002 ELOCON 0.1 % O INT Take as directed MOMETASONE FUROATE [id number] Denise Resendez Start: 01-07-2002 End: 01-29-2013 ELOCON 0.1 % OINT Take as di rected MOMETASONE FUROATE [id number] Reed Monet MD Start: 01-07-2002 ELOCON 0.1 % O INT Take as directed MOMETASONE FUROATE [id number] Denise Resendez MULTIPLE VITAMIN (20 sources) Start: [...] SOLN 1 drop OU QD OLOPATADINE HCL [id number] Denise Resendez Start: 01-07-2002 PATANOL 0.1 % SOLN 1 drop OU QD OLOPATADINE HCL [id number] Denise Resendez Start: 01-07-2002 End: 07-26-2011 PATANOL 0.1 % SOLN 1 drop OU QD OLOPATADINE HCL [id number] Valeriy Gonzalez MD Start: 01-07-2002 PATANOL 0.1 % SOLN 1 drop OU QD OLOPATADINE HCL [id number] Denise Resendez Start: 01-07-2002 End: 07-26-2011 PATANOL 0.1 % SOLN 1 drop OU QD OLOPATADINE HCL [id number] Valeriy Gonzalez MD pregabalin 75 mg oral [...] July 17, 2024 8:06am Use acct. number [id number] for proper billing (pt has 2 accounts) [...] % OINT Apply as directed TRIAMCINOLONE ACETONIDE [id number] [facility] Vitamin B Complex (20 sources) Start: 02-02-2022 [...] 02, 2022 12:00am Vitamin B Complex tablet (8 sources) Start: 02-02-2022 End: 01-17-2023 Vitamin B [...] to penicillin; 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: [Latex allergy status] Onset: Episodic Cardiac dysrhythmias (20 sources) Ventricular premature beats; 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: [Atrial flutter] Onset: 1 04-28-2010 Chronic Cardiac dysrhythmias (20 sources) Palpitations; 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: [Tachycardia, unspecified] Onset: 3 01-29-2013 Episodic Chronic kidney disease (8 sources) Chronic kidney disease; 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: [Chronic kidney [...] @ [facility] 23 On-X Aortic Valve @ [facility] 01/20/15 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 with complications and secondary hypertension (1 source) Hypertensive heart disease with heart failure; 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: [Hypertensive heart disease with heart failure] Onset: 5 Chronic Malaise and fatigue (20 sources) Other fatigue; 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: [Fatigue] Onset: 5 12-16-2014 Episodic Osteoarthritis (20 sources) Osteoarthritis of right hip joint; 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: [Unilateral primary osteoarthritis, right hip] Onset: 5 Chronic Other aftercare (20 sources) Other [facility] (current) drug therapy; 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: [[facility] (current) 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] Onset: 1 04-28-2010 Episodic Other aftercare (20 sources) Long-term current use of anticoagulant; 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: [[facility] (current) 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] 02-14-2017 Episodic Other aftercare (20 sources) Drug therapy finding; 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: [Other medical terminologist (current) drug therapy] 06-28-2021 Episodic Comment on above: Will DC amiodarone a nd trial rate control and titrate to symptoms. Other aftercare (16 sources) [facility] (current) 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; 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: [Long-term (current) 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] Onset: 5 Episodic Other aftercare (1 source) Encounter for therapeutic drug level monitoring; 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: [Encounter for therapeutic drug level monitoring] Onset: 5 Episodic Other aftercare (1 source) [facility] (current) use of aspirin; 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: [[facility] (current) use of aspirin] Onset: 5 Episodic Other aftercare (6 sources) Long-term current use of amiodarone; 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: [Other medical terminologist (current) drug therapy] 07-24-2023 Episodic Comment on [...] to limbs] Episodic Other connective tissue disease (8 sources) H/O: back problem; 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: [Personal history of other diseases of the musculoskeletal system and connective tissue] 09-28-2021 Episodic Other diseases of kidney and ureters (9 sources) Renal impairment; 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: [Disorder of kidney and ureter, unspecified] 07-10-2024 Episodic Other diseases of kidney and ureters (1 source) Disorder of kidney and ureter, unspecified; 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: [Disorder of kidney and ureter, unspecified] Onset: Episodic Other female genital disorders (15 sources) [...] source) Dyspnea, unspecified; 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: [Dyspnea, unspecified] Onset: Episodic Other nervous system disorders (20 sources) [...] joint, pelvic region and thigh] Episodic Other screening for suspected conditions (not mental disorders or infectious disease) (20 sources) Raised TSH level; 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: [Other specified abnormal findings of blood chemistry] Onset: 4 Episodic Other skin disorders (20 sources) Lichen sclerosus et atrophicus; 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: [Lichen sclerosus et atrophicus] 11-09-2020 Chronic Comment on above: clobetesol Other upper respiratory infections (8 sources) Viral upper respiratory tract infection; 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: [Acute upper respiratory infection, unspecified] 02-18-2024 Episodic Keiry-; endo-; and myocarditis; cardiomyopathy (except that caused by tuberculosis or sexually transmitted disease) (9 sources) Cardiomyopathy; 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: [Cardiomyopathy, unspecified] Onset: 5 [...] (10 sources) Long-term drug therapy; 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: [Other [facility] (current) drug therapy] Onset: 1 04-28-2010 Unclassified (10 sources) Warfarin therapy started; 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: [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] Onset: 5 08-27-2014 [...] somnolence; 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: [Somnolence] Onset: 05-02-2016 05-02-2016 Episodic Other lower respiratory disease (5 sources) Snoring; 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: [Snoring] Onset: 05-02-2016 05-02-2016 Episodic Other nutritional; endocrine; and metabolic disorders (20 sources) Body mass index (BMI) 25.0-25.9, adult; 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: [Body mass index (BMI) 25.0-25.9, adult] Onset: 01-29-2013 01-29-2013 Episodic Results Test Name Value Interpretation Reference Range Facility Echo, Limited Studyon 2024 Echo, Limited Study [facility] [address] [place] [address] Echo, Limited Study 09/10/24 0705 MR#: [id number] Acct: [id number] Name: DONNA NARANJO I Rep #: [id number] : 1940 83 From: Alex Sol MD Attending Dr: Alfa Bush, SALES TRAINEE-C Status: REG CLI Ordering Dr: Alfa Bush SALES TRAINEE SALES TRAINEE-C Date: 09/10/24 Location: CVS Sex: F C Admitted: Reason For Study : Re evaluate EF Procedure This was a limited 2D transthoracic echocardiogram. Exam performed in department. Left Ventricle Normal LV size. Moderate concentric left ventricular hypertrophy. The left ventricular ejection fraction is 30 %. There is moderate to severe global hypokinesis of the left ventricle. Right Ventricle Normal RV size. Normal systolic function. Mitral Valve Stable appearing mechanical mitral valve apparatus. Tricuspid Valve Normal tricuspid valve. Moderate (2+) tricuspid valve insufficiency. Pulmonary artery systolic pressure is 56 mmHg. Aortic Valve Bioprosthetic aortic valve. Great Vessels Normal aortic root. Pericardium/Pleural No pericardial effusion. MMode/2D Measurements Calculations LVIDd: 4.5 cm IVSd: 1.4 cm LVAd ap4: 29.8 cm2 LVIDs: 4.0 cm LVPWd: 1.4 cm LVLd ap4: 7.6 cm FS: 11.3 % EDV(MOD-sp4): 95.9 ml EDV(sp4-el): 99.2 ml LVAs ap4: 23.5 cm2 LVLs ap4: 7.0 cm ESV(MOD-sp4): 66.3 ml ESV(sp4-el): 67.0 ml EF(MOD-sp4): 30.9 % EF(sp4-el): 32.4 % __ SV(MOD-sp4): 29.6 ml SV(MOD-sp2): 21.6 ml LVAd ap2: 25.1 cm2 LVLd ap2: 7.1 cm SI(MOD-sp4): 18.6 ml/m2 SI(MOD-sp2): 13.6 ml/m2 EDV(MOD-sp2): 74.0 ml EDV(sp2-el): 75.7 ml LVAs ap2: 20.9 cm2 LVLs ap2: 6.8 cm ESV(MOD-sp2): 52.4 ml ESV(sp2-el): 54.6 ml EF(MOD-sp2): 29.2 % __ SV(sp4-el): 32.1 ml Doppler Measurements Calculations TR max paris: 356.1 cm/sec TR max P.7 mmHg ECHO/Echo, Limited Study Interpretation Summary Normal LV size. The left ventricular ejection fraction is 30 %. Moderate concentric left ventricular hypertrophy. There is moderate to severe global hypokinesis of the left ventricle. Pulmonary artery systolic pressure is 56 mmHg. __ Ordering Physician: Alfa Bush Referring Physician: Mireille Garnica Performed By: Bella Bush RVT, RDCS and Student 09/10/24900 Date Alex Sol MD CC: SALES TRAINEE-C Alfa Bush; Dr. Mireille Garnica MD Date Dictated: 09/10/24704 Date Transcribed: 09/10/24900 Python Engineer: Signed Normal [facility] Limited echocardiogram repor tOrdered By: Alex Sol on 09-10-2024 Study report [facility] [address] [place] [address] Echo, Limited Study 09/10/24704 MR#: [id number] Acct: [id number] Name: DONNA NARANJO I Rep #:[id number] : 1940 83 From: Alex House Attending Dr: AB Salazar [facility] tus: SHAQUILLE CLI Ordering Dr: Alfa Bush NP Date: 09/10/24 Location: [facility] Sex: F C Admitted: Reason For Study : Re evaluate EF Procedure This was a limited 2D transthoracic echocardiogram. Exam performed in department. Left Ventricle Normal LV size. Moderate concentric left ventricular hypertrophy. The left ventricular ejection fraction is 30 %. There is moderate to severe global hypokinesis of the left ventricle. Right Ventricle Normal RV size. Normal systolic function. Mitral Valve Stable appearing mechanical mitral valve apparatus. Tricuspid Valve Normal tricuspid valve. Moderate (2+) tricuspid valve insufficiency. Pulmonary artery systolic pressure is 56 mmHg. Aortic Valve Bioprosthetic aortic valve. Great Vessels Normal aortic root. Pericardium/Pleural No pericardial effusion. MMode/2D Measurements & Calculations LVIDd: 4.5 cm IVSd: 1.4 cm LVAd ap4: 29.8 cm2 LVIDs: 4.0 cm LVPWd: 1.4 cm LVLd ap4: 7.6 cm FS: 11.3 % EDV(MOD-sp4): 95.9 ml EDV(sp4-el): 99.2 ml LVAs ap4: 23.5 cm2 LVLs ap4: 7.0 cm ESV(MOD-sp4): 66.3 ml ESV(sp4-el): 67.0 ml EF(MOD-sp4): 30.9 % EF(sp4-el): 32.4 % __ SV(MOD-sp4): 29.6 ml SV(MOD-sp2): 21.6 ml LVAd ap2: 25.1 cm2 LVLd ap2: 7.1 cm SI(MOD-sp4): 18.6 ml/m2 SI(MOD-sp2): 13.6 ml/m2 EDV(MOD-sp2): 74.0 ml EDV(sp2-el): 75.7 ml LVAs ap2: 20.9 cm2 LVLs ap2: 6.8 cm ESV(MOD-sp2): 52.4 ml ESV(sp2-el): 54.6 ml EF(MOD-sp2): 29.2 % ____ SV(sp4-el): 32.1 ml Doppler Measurements & Calculations TR max paris: 356.1 cm/sec TR max P.7 mmHg ECHO/Echo, Limited Study Interpretation Summary Normal LV size. The left ventricular ejection fraction is 30 %. Moderate concentric left ventricular hypertrophy. There is moderate to severe global hypokinesis of the left ventricle. Pulmonary artery systolic pressure is 56 mmHg. __ Ordering Physician: Alfa Bush Referring Physician: Mireille Garnica Performed By: Bella Bush RVT, RDCS and Student 09/10/24900 Date _ Alex Sol MD CC: SALES TRAINEE-C Alfa Bush; Dr. Mireille Garnica MD ~ Date Dictated: 09/10/24704 Date Transcribed: 09/10/24900 Python Engineer: Signed [facility] Work Phone: International normalized rat io (INR) calculationOrdered By: Alfa Bush on 09-03-2024 INR Coag (Bld) [Relative time] 2.6 {INR} [facility] Prothrombin Time w/INRon INR Coag (PPP) [Relative time] 2.6 {INR} Normal [facility] Comment on above: Performed By: #### L 300.3900 #### [facility] [address] [place], [place], [address] PT Coag (PPP) [Time] 28.2 s High 11.7-14.9 [facility] Comment on above: Performed By: #### L 300.3900 #### [facility] [address] [place], [place], [address] Prothrombin timeOrdered By: Alfa Bush on 09-03-2024 PT Coag (PPP) [Time] 28.2 s High 11.7-14.9 [facility] Anion gap in Serum or Plasma Ordered By: Alfa Bush on 08-26-2024 Anion gap [Moles/Vol] 14 mmol/L 5-15 [facility] BUN/creatinine ratioOrdered By: Alfa Bush on 08-26-2024 Urea nitrogen/Creatinine [Mass ratio] 17.5 mg/mg 10-20 [facility] Bilirubin, totalOrdered By: Alfa Bush on 08-26-2024 Bilirubin [Mass/Vol] 0.61 mg/dL 0.00-1.30 [facility] Carbon dioxide, total [Moles /volume] in Central venous bloodOrdered By: Alfa Bush on 08-26-2024 CO2 [Moles/Vol] 21.3 mmol/L 21.0-32.0 [facility] Cardiology Visit Reporton Cardiology Visit Report [facility] [address] [place] [address] OFFICE VISIT Date of Service: 08/26/24 MR#: [id number] Acct: [id number] Name: DONNA NARANJO I Rep #: [id number] : 1940 Provider: AB manrique Age/Sex: 83/F [place] [facility] [place] Status: Signed HPI HPI History of Present [...] [address] De La Cruz at [facility]. 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 Normal [facility] Chloride assayOrdered By: eRva Bush on 08-26-2024 Chloride [Moles/Vol] 104 mmol/L 98-108 [facility] Comprehensive Metabolic Prof ilon 08-26-2024 Albumin [Mass/Vol] 4.2 g/dL Normal 3.4-4.8 [facility] Comment on above: Performed By: #### L 300.3900 #### [facility] [address] [place], [address] Albumin/Globulin [Mass ratio] 1.4 {ratio} Normal 0.9-2.4 [facility] Comment on above: Performed By: #### L 300.3900 #### [facility] [address] [place], [address] ALK PHOS 90 U/L Normal 35-104 [facility] Comment on above: Performed By: #### L 300.3900 #### [facility] [address] [place], [address] ALT [Catalytic activity/Vol] 17 U/L Normal <=34 [facility] Comment on above: Performed By: #### L 300.3900 #### [facility] [address] [place], [address] AST [Catalytic activity/Vol] 33 U/L High <=31 [facility] Comment on above: Performed By: #### L 300.3900 #### [facility] [address] [place], [address] Bilirubin [Mass/Vol] 0.61 mg/dL Normal 0.00-1.30 [facility] Comment on above: Performed By: #### L 300.3900 #### [facility] [address] [place], [address] BUN/CRE 17.5 RATIO Normal 10-20 [facility] Comment on above: Performed By: #### L 300.3900 #### [facility] [address] [place], [address] Calcium [Mass/Vol] 10.6 mg/dL Normal 7.6-11.0 [facility] Comment on above: Performed By: #### L 300.3900 #### [facility] [address] [place], [address] Chloride [Moles/Vol] 104 mmol/L Normal 98-108 [facility] Comment on above: Performed By: #### L 300.3900 #### [facility] [address] [place], [address] CO2 [Moles/Vol] 21.3 mmol/L Normal 21.0-32.0 [facility] Comment on above: Performed By: #### L 300.3900 #### [facility] [address] [place], [address] Creatinine [Mass/Vol] 2.98 mg/dL High 0.70-1.20 [facility] Comment on above: Performed By: #### L 300.3900 #### [facility] [address] [place], [address] GAP 14 Normal 5-15 [facility] Comment on above: Performed By: #### L 300.3900 #### [facility] [address] [place], [address] GFR/1.73 sq M.predicted among non-blacks MDRD (S/P/Bld) [Vol rate/Area] 15 mL/min/{1.73_m2} Low >60 [facility] Comment on above: Result Comment: mL/m in/1.73m2 CKD-EPI Creatinine Equation (2020) Performed By: #### L 300.3900 #### [facility] [address] [place], [address] Globulin (S) [Mass/Vol] 3.0 g/dL Normal 2.2-4.2 [facility] Comment on above: Performed By: #### L 300.3900 #### [facility] [address] [place], [address] Glucose [Mass/Vol] 97 mg/dL Normal 70-99 [facility] Comment on above: Performed By: #### L 300.3900 #### [facility] [address] [place], [address] Potassium [Moles/Vol] 4.2 mmol/L Normal 3.3-5.1 [facility] Comment on above: Performed By: #### L 300.3900 #### [facility] [address] [place], [address] Sodium [Moles/Vol] 140 mmol/L Normal 133-145 [facility] Comment on above: Performed By: #### L 300.3900 #### [facility] [address] [place], [address] T PROT 7.2 g/dL Normal 5.9-8.4 [facility] Comment on above: Performed By: #### L 300.3900 #### [facility] [address] [place], [address] Urea nitrogen [Mass/Vol] 52 mg/dL High 4-19 [facility] Comment on above: Performed By: #### L 300.3900 #### [facility] [address] [place], [address] Glomerular filtration rate ( GFR) estimation/1.73 sq m using serum, plasma, or whole bOrdered By: Alfa Bush on 08-26-2024 GFR/1.73 sq M.predicted among non-blacks MDRD (S/P/Bld) [Vol rate/Area] 15 mL/min/{1.73_m2} Low >60 [facility] Comment on above: mL/min/1.73m2 CKD-EP I Creatinine Equation (2020) Laboratory - Chemistry and C hemistry - challengeOrdered By: Alfa Bush on 08-26-2024 AST [Catalytic activity/Vol] 33 U/L High <32 [facility] Magnesiumon 08-26-2024 Magnesium [Mass/Vol] 2.6 mg/dL High 1.5-2.2 [facility] Comment on above: Performed By: #### L 300.3900 #### [facility] [address] [place], [address] Magnesium measurement (mass/ volume)Ordered By: Alfa Bush on 08-26-2024 Magnesium (Unsp spec) [Mass/Vol] 2.6 mg/dL High 1.5-2.2 [facility] Potassium measurement (mass/ volume)Ordered By: Alfa Bush on 08-26-2024 Potassium (Unsp spec) [Mass/Vol] 4.2 mmol/L 3.3-5.1 [facility] Prothrombin Time w/INRon INR Coag (PPP) [Relative time] 2.4 {INR} Normal [facility] Comment on above: Performed By: #### L 300.3900 #### [facility] [address] [place], [address] PT Coag (PPP) [Time] 26.2 s High 11.7-14.9 [facility] Comment on above: Performed By: #### L 300.3900 #### [facility] [address] [place], [address] Serum creatinine measurement (mass/volume)Ordered By: Alfa Bush on 08-26-2024 Creatinine [Mass/Vol] 2.98 mg/dL High 0.70-1.20 [facility] Serum globulin measurementOr dered By: Alfa Bush on 08-26-2024 Globulin (S) [Mass/Vol] 3.0 g/dL 2.2-4.2 [facility] Serum glucose measurement (m ass/volume)Ordered By: Alfa Bush on 08-26-2024 Glucose [Mass/Vol] 97 mg/dL 70-99 [facility] Serum or plasma alanine perry otransferase (ALT) measurementOrdered By: Alfa Bush on 08-26-2024 ALT [Catalytic activity/Vol] 17 U/L <35 [facility] Serum or plasma albumin geoffrey urement (mass/volume)Ordered By: Alfa Bush on 08-26-2024 Albumin [Mass/Vol] 4.2 g/dL 3.4-4.8 [facility] Serum or plasma albumin/glob ulin mass ratioOrdered By: Alfa Bush on 08-26-2024 Albumin/Globulin [Mass ratio] 1.4 {ratio} 0.9-2.4 [facility] Serum or plasma alkaline dom sphatase measurementOrdered By: Alfa Bush on 08-26-2024 ALP [Catalytic activity/Vol] 90 U/L 35-104 [facility] Serum or plasma calcium geoffrey urement (mass/volume)Ordered By: Alfa Bush on 08-26-2024 Calcium [Mass/Vol] 10.6 mg/dL 7.6-11.0 [facility] Serum or plasma urea nitroge n measurement (mass/volume)Ordered By: Alfa Bush on 08-26-2024 Urea nitrogen [Mass/Vol] 52 mg/dL High 4-19 [facility] Sodium levelOrdered By: Alfa Bush on 08-26-2024 Sodium [Moles/Vol] 140 mmol/L 133-145 [facility] Total proteinOrdered By: Tatiana Bush on 08-26-2024 Protein [Mass/Vol] 7.2 g/dL 5.9-8.4 [facility] Absolute lymphocyte countOrd ered By: Hien Louie on 08-21-2024 Lymphocytes Auto (Unsp spec) [#/Vol] 0.75 10*3/uL Low 0.83-4.51 [facility] Absolute neutrophil countOrd ered By: Hien Louie on 08-21-2024 Neutrophils (Bld) [#/Vol] 6.4 10*3/uL 2.0-7.7 [facility] Anion gap in Serum or Plasma Ordered By: Hien Louie on 08-21-2024 Anion gap [Moles/Vol] 11 mmol/L 5-15 [facility] Automated lymphocyte count a s percentage of total leukocytesOrdered By: Hien Louie on 08-21-2024 Lymphocytes/100 WBC Auto (Unsp spec) 7.5 % Low 19-41 [facility] BUN/creatinine ratioOrdered By: Hien Louie on 08-21-2024 Urea nitrogen/Creatinine [Mass ratio] 17.5 mg/mg 10- [facility] Basic Metabolic Profile (BMP )on 08-21-2024 BUN/CRE 17.5 RATIO Normal - [facility] Comment on above: Performed By: #### L 300.3900 #### [facility] [address] [place], [address] Calcium [Mass/Vol] 10.3 mg/dL Normal 7.6-11.0 [facility] Comment on above: Performed By: #### L 300.3900 #### [facility] [address] [place], [address] Chloride [Moles/Vol] 107 mmol/L Normal 98-108 [facility] Comment on above: Performed By: #### L 300.3900 #### [facility] [address] [place], [address] CO2 [Moles/Vol] 24.2 mmol/L Normal 21.0-32.0 [facility] Comment on above: Performed By: #### L 300.3900 #### [facility] [address] [place], [address] Creatinine [Mass/Vol] 3.72 mg/dL High 0.70-1.20 [facility] Comment on above: Performed By: #### L 300.3900 #### [facility] [address] [place], [address] GAP 11 Normal 5-15 [facility] Comment on above: Performed By: #### L 300.3900 #### [facility] [address] [place], [address] GFR/1.73 sq M.predicted among non-blacks MDRD (S/P/Bld) [Vol rate/Area] 12 mL/min/{1.73_m2} Low >60 [facility] Comment on above: Result Comment: mL/m in/1.73m2 CKD-EPI Creatinine Equation (2020) Performed By: #### L 300.3900 #### [facility] [address] [place], [address] Glucose [Mass/Vol] 89 mg/dL Normal 70-99 [facility] Comment on above: Performed By: #### L 300.3900 #### [facility] [address] [place], [address] Potassium [Moles/Vol] 4.5 mmol/L Normal 3.3-5.1 [facility] Comment on above: Performed By: #### L 300.3900 #### [facility] [address] [place], [address] Sodium [Moles/Vol] 143 mmol/L Normal 133-145 [facility] Comment on above: Performed By: #### L 300.3900 #### [facility] [address] [place], [address] Urea nitrogen [Mass/Vol] 65 mg/dL High 4-19 [facility] Comment on above: Performed By: #### L 300.3900 #### [facility] [address] [place], [address] Basophil percentageOrdered B y: Hien Louie on 08-21-2024 Basophils/100 WBC (Bld) 0.6 % 0-1 [facility] CBC W/Diff, Automatedon Absolute Lymph 0.75 X10 3/uL Low 0.83-4.51 [facility] Comment on above: Performed By: #### L 300.3900 #### [facility] [address] [place], [address] Absolute Neut 6.4 X10 3/uL Normal 2.0-7.7 [facility] Comment on above: Performed By: #### L 300.3900 #### [facility] [address] [place], [address] Basophils/100 WBC (Bld) 0.6 % Normal 0-1 [facility] Comment on above: Performed By: #### L 300.3900 #### [facility] [address] [place], [address] Eosinophils/100 WBC (Bld) 14.5 % High 0-5 [facility] Comment on above: Performed By: #### L 300.3900 #### [facility] [address] [place], [address] Erythrocyte distribution width (RBC) [Ratio] 15.9 % High 11.6-14.6 [facility] Comment on above: Performed By: #### L 300.3900 #### [facility] [address] [place], [address] Hematocrit (Bld) [Volume fraction] 32.8 % Low 37-47 [facility] Comment on above: Performed By: #### L 300.3900 #### [facility] [address] [place], [address] Hemoglobin (Bld) [Mass/Vol] 10.6 g/dL Low 12.0-15.0 [facility] Comment on above: Performed By: #### L 300.3900 #### [facility] [address] [place], [address] IG% 0.700 Normal 0.0-0.9 [facility] Comment on above: Result Comment: IG% - Immature Granulocytes (promyelocytes, myelocytes and metamyelocytes) > 1% indicates that a LEFT SHIFT is Present. Performed By: #### L 300.3900 #### [facility] [address] [place], [address] Lymphocytes/100 WBC (Bld) 7.5 % Low 19-41 [facility] Comment on above: Performed By: #### L 300.3900 #### [facility] [address] [place], [address] MCH (RBC) [Entitic mass] 33.9 pg High 27.0-32.0 [facility] Comment on above: Performed By: #### L 300.3900 #### [facility] [address] [place], [address] MCHC (RBC) [Mass/Vol] 32.3 g/dL Normal 32-36 [facility] Comment on above: Performed By: #### L 300.3900 #### [facility] [address] [place], [address] MCV (RBC) [Entitic vol] 104.8 fL High 81-99 [facility] Comment on above: Performed By: #### L 300.3900 #### [facility] [address] [place], [address] Monocytes/100 WBC (Bld) 13.3 % High 0-10 [facility] Comment on above: Performed By: #### L 300.3900 #### [facility] [address] [place], [address] Neutrophils/100 WBC (Bld) 63.4 % Normal 47-70 [facility] Comment on above: Performed By: #### L 300.3900 #### [facility] [address] [place], [address] Nucleated RBC (Bld) [#/Vol] 0 10*3/uL Normal 0-5 [facility] Comment on above: Performed By: #### L 300.3900 #### [facility] [address] [place], [address] Platelet mean volume (Bld) [Entitic vol] 9.6 fL Normal 6.2-12.0 [facility] Comment on above: Performed By: #### L 300.3900 #### [facility] [address] [place], [address] Platelets (Bld) [#/Vol] 269 10*3/uL Normal 150-450 [facility] Comment on above: Performed By: #### L 300.3900 #### [facility] [address] [place], [address] RBC (Bld) [#/Vol] 3.13 10*6/uL Low 4.2-5.4 [facility] Comment on above: Performed By: #### L 300.3900 #### [facility] [address] [place], [address] RDW SD 61.3 fl High 35.1-43.9 [facility] Comment on above: Performed By: #### L 300.3900 #### [facility] [address] [place], [address] WBC (Bld) [#/Vol] 10.1 10*3/uL Normal 4.4-11.0 [facility] Comment on above: Performed By: #### L 300.3900 #### [facility] [address] [place], [address] Carbon dioxide, total [Moles /volume] in Central venous bloodOrdered By: Hien Louie on 08-21-2024 CO2 [Moles/Vol] 24.2 mmol/L 21.0-32.0 [facility] Chloride assayOrdered By: Lei Louie on 08-21-2024 Chloride [Moles/Vol] 107 mmol/L 98-108 [facility] Eosinophil percentageOrdered By: Hien Louie on 08-21-2024 Eosinophils/100 WBC (Bld) 14.5 % High 0-5 [facility] Erythrocyte distribution wid th ratioOrdered By: Hien Louie on 08-21-2024 Erythrocyte distribution width (RBC) [Ratio] 15.9 % High 11.6-14.6 [facility] Erythrocyte distribution wid th standard deviationOrdered By: Hien Louie on 08-21-2024 Erythrocyte distribution width (RBC) [Ratio] 61.3 fl High 35.1-43.9 [facility] Glomerular filtration rate ( GFR) estimation/1.73 sq m using serum, plasma, or whole bOrdered By: Hien Louie on 08-21-2024 GFR/1.73 sq M.predicted among non-blacks MDRD (S/P/Bld) [Vol rate/Area] 12 mL/min/{1.73_m2} Low >60 [facility] Comment on above: mL/min/1.73m2 CKD-EP I Creatinine Equation (2020) Hematocrit Auto (Bld) [Volum e fraction]Ordered By: Hien Louie on 08-21-2024 Hematocrit (Bld) [Volume fraction] 32.8 % Low 37-47 [facility] Hemoglobin measurementOrdere d By: Hien Louie on 08-21-2024 Hemoglobin (Bld) [Mass/Vol] 10.6 g/dL Low 12.0-15.0 [facility] Immature granulocytes/100 WB C Auto (Bld)Ordered By: Hien Louie on 08-21-2024 Immature granulocytes/100 WBC (Bld) 0.700 % 0.0-0.9 [facility] Comment on above: IG% - Immature Granu locytes (promyelocytes, myelocytes and metamyelocytes) > 1% indicates that a LEFT SHIFT is Present. International normalized rat io (INR) calculationOrdered By: Hien Louie on 08-21-2024 INR Coag (Bld) [Relative time] 2.6 {INR} [facility] L503.7505on 08-21-2024 Natriuretic peptide B (Bld) [Mass/Vol] 2111 pg/mL High <=1800 [facility] Comment on above: Result Comment: Hear t Failure Unlikely: < 300 pg/mL Heart Failure Likely < 50 Years: > 450 pg/mL 50-75 Years: > 900 pg/mL >75 Years: > 1800 pg/mL Performed By: #### L 300.3900 #### [facility] [address] [place], [address] MCV (mean corpuscular volume ) determinationOrdered By: Hien Louie on 08-21-2024 MCV (RBC) [Entitic vol] 104.8 fL High 81-99 [facility] Mean corpuscular hemoglobin (MCH) determinationOrdered By: Hien Louie on 08-21-2024 MCH (RBC) [Entitic mass] 33.9 pg High 27.0-32.0 [facility] Mean corpuscular hemoglobin concentration (MCHC) determinationOrdered By: Hien Louie on 08-21-2024 MCHC (RBC) [Mass/Vol] 32.3 g/dL 32-36 [facility] Mean platelet volume determi nationOrdered By: Hien Louie on 08-21-2024 Platelet mean volume (Bld) [Entitic vol] 9.6 fL 6.2-12.0 [facility] Monocyte percentageOrdered B y: Hien Louie on 08-21-2024 Monocytes/100 WBC (Bld) 13.3 % High 0-10 [facility] Natriuretic peptide.B prohor rolanda N-Terminal [Mass/volume] in Serum or PlasmaOrdered By: Hien Louie on 08-21-2024 Natriuretic peptide.B prohormone N-Terminal [Mass/Vol] 2111 pg/mL High <1800 [facility] Comment on above: Heart Failure Unlike ly: < 300 pg/mLHeart Failure Likely< 50 Years: > 450 pg/mL50-75 Years: > 900 pg/mL>75 Years: > 1800 pg/mL Neutrophil percentageOrdered By: Hien oLuie on 08-21-2024 Neutrophils/100 WBC (Bld) 63.4 % 47-70 [facility] Nucleated red blood cell per centageOrdered By: Hien Louie on 08-21-2024 Nucleated RBC/100 WBC (Bld) [Ratio] 0 % 0-5 [facility] Platelet countOrdered By: Lei Louie on 08-21-2024 Platelets (Bld) [#/Vol] 269 10*3/uL 150-450 [facility] Potassium measurement (mass/ volume)Ordered By: Hien Louie on 08-21-2024 Potassium (Unsp spec) [Mass/Vol] 4.5 mmol/L 3.3-5.1 [facility] Prothrombin Time w/INRon INR Coag (PPP) [Relative time] 2.6 {INR} Normal [facility] Comment on above: Performed By: #### L 300.3900 #### [facility] [address] [place], [address] PT Coag (PPP) [Time] 28.0 s High 11.7-14.9 [facility] Comment on above: Performed By: #### L 300.3900 #### [facility] [address] [place], [address] Prothrombin timeOrdered By: Hien Louie on 08-21-2024 PT Coag (PPP) [Time] 28.0 s High 11.7-14.9 [facility] RBC Auto (Bld) [#/Vol]Ordere d By: Hien Louie on 08-21-2024 RBC (Bld) [#/Vol] 3.13 10*6/uL Low 4.2-5.4 [facility] Serum creatinine measurement (mass/volume)Ordered By: Hien Louie on 08-21-2024 Creatinine [Mass/Vol] 3.72 mg/dL High 0.70-1.20 [facility] Serum glucose measurement (m ass/volume)Ordered By: Hien Louie on 08-21-2024 Glucose [Mass/Vol] 89 mg/dL 70-99 [facility] Serum or plasma calcium geoffrey urement (mass/volume)Ordered By: Hien Louie on 08-21-2024 Calcium [Mass/Vol] 10.3 mg/dL 7.6-11.0 [facility] Serum or plasma urea nitroge n measurement (mass/volume)Ordered By: Hien Louie on 08-21-2024 Urea nitrogen [Mass/Vol] 65 mg/dL High 4-19 [facility] Sodium levelOrdered By: Sarita Louie on 08-21-2024 Sodium [Moles/Vol] 143 mmol/L 133-145 [facility] TSH DL <= 0.005 mIU/L QnOrde red By: Hien Louie on 08-21-2024 TSH Qn 3.540 uIU/mL 0.300-4.200 [facility] Thyroid Stim Hormone (TSH)on 08-21-2024 TSH 3.540 uIU/mL Normal 0.300-4.200 [facility] Comment on above: Performed By: #### L 300.3900 #### [facility] [address] [place], [address] White blood cell (WBC) count Ordered By: Hien Louie on 08-21-2024 WBC (Bld) [#/Vol] 10.1 10*3/uL 4.4-11.0 [facility] International normalized rat io (INR) calculationOrdered By: Alfa Bush on 08-13-2024 INR Coag (Bld) [Relative time] 3.7 {INR} [facility] Prothrombin Time w/INRon INR Coag (PPP) [Relative time] 3.7 {INR} Normal [facility] Comment on above: Performed By: #### L 300.3900 #### [facility] [address] [place], [address] PT Coag (PPP) [Time] 37.5 s High 11.7-14.9 [facility] Comment on above: Performed By: #### L 300.3900 #### [facility] [address] [place], [address] Prothrombin timeOrdered By: Alfa Bush on 08-13-2024 PT Coag (PPP) [Time] 37.5 s High 11.7-14.9 [facility] Prothrombin Time w/INRon INR Coag (PPP) [Relative time] 4.2 {INR} Invalid Interpretation Code [facility] Comment on above: Order Comment: Comme nts: STANDING ORDER Result Comment: CRIT ICAL VALUE CALLED TO RICHIE HILL ([facility]) 08/09/24 1254 Handy Mena. RESULTS READ BACK BY SAME. Performed By: #### L 300.3900 #### [facility] [address] [place], [address] PT Coag (PPP) [Time] 41.6 s High 11.7-14.9 [facility] Comment on above: Order Comment: Comme nts: STANDING ORDER Performed By: #### L 300.3900 #### [facility] [address] [place], [address] Prothrombin Time w/INRon INR Coag (PPP) [Relative time] 3.9 {INR} Normal [facility] Comment on above: Performed By: #### L 300.3900 #### [facility] [address] [place], [address] PT Coag (PPP) [Time] 39.4 s High 11.7-14.9 [facility] Comment on above: Performed By: #### L 300.3900 #### [facility] [address] [place], [address] Prothrombin Time w/INRon INR Coag (PPP) [Relative time] 5.0 {INR} Invalid Interpretation Code [facility] Comment on above: Order Comment: CRITI PAUL VALUE CALLED TO BETO07/26/24 Ho2 Aislinn Cardenas.RESULTS READ BACK BY LNOLT Performed By: #### L 300.3900 #### [facility] [address] [place], [address] PT Coag (PPP) [Time] 47.4 s High 11.7-14.9 [facility] Comment on above: Order Comment: CRITI PAUL VALUE CALLED TO BETO07/26/24 1412 Aislinn Cardenas.RESULTS READ BACK BY LNOLT Performed By: #### L 300.3900 #### [facility] [address] [place], [address] Anion gap in Serum or Plasma Ordered By: Hien Luoie on 07-19-2024 Anion gap [Moles/Vol] 11 mmol/L 07-04 [facility] BUN/creatinine ratioOrdered By: Hien Louie on 07-19-2024 Urea nitrogen/Creatinine [Mass ratio] 19.2 mg/mg 12-09 [facility] Basic Metabolic Profile (BMP )on 07-19-2024 BUN/CRE 19.2 RATIO Normal 12-09 [facility] Comment on above: Performed By: #### L 300.3900 #### [facility] [address] [place], [address] Calcium [Mass/Vol] 12.3 mg/dL High 7.6-11.0 [facility] Comment on above: Performed By: #### L 300.3900 #### [facility] [address] [place], [address] Chloride [Moles/Vol] 106 mmol/L Normal 98-108 [facility] Comment on above: Performed By: #### L 300.3900 #### [facility] [address] [place], [address] CO2 [Moles/Vol] 23.4 mmol/L Normal 21.0-32.0 [facility] Comment on above: Performed By: #### L 300.3900 #### [facility] [address] [place], [address] Creatinine [Mass/Vol] 2.60 mg/dL High 0.70-1.20 [facility] Comment on above: Performed By: #### L 300.3900 #### [facility] [address] [place], [address] GAP 11 Normal 5-15 [facility] Comment on above: Performed By: #### L 300.3900 #### [facility] [address], [address] GFR/1.73 sq M.predicted among non-blacks MDRD (S/P/Bld) [Vol rate/Area] 18 mL/min/{1.73_m2} Low >60 [facility] Comment on above: Result Comment: mL/m in/1.73m2 CKD-EPI Creatinine Equation (2020) Performed By: #### L 300.3900 #### [facility] [address] [place], [address] Glucose [Mass/Vol] 88 mg/dL Normal 70-99 [facility] Comment on above: Performed By: #### L 300.3900 #### [facility] [address] [place], [address] Potassium [Moles/Vol] 4.1 mmol/L Normal 3.3-5.1 [facility] Comment on above: Performed By: #### L 300.3900 #### [facility] [address] [place], [address] Sodium [Moles/Vol] 140 mmol/L Normal 133-145 [facility] Comment on above: Performed By: #### L 300.3900 #### [facility] [address] [place], [address] Urea nitrogen [Mass/Vol] 50 mg/dL High 4-19 [facility] Comment on above: Performed By: #### L 300.3900 #### [facility] [address] [place], [address] Carbon dioxide, total [Moles /volume] in Central venous bloodOrdered By: Hien Louie on 07-19-2024 CO2 [Moles/Vol] 23.4 mmol/L 21.0-32.0 [facility] Chloride assayOrdered By: Lei Louie on 07-19-2024 Chloride [Moles/Vol] 106 mmol/L 98-108 [facility] Glomerular filtration rate ( GFR) estimation/1.73 sq m using serum, plasma, or whole bOrdered By: Hien Louie on 07-19-2024 GFR/1.73 sq M.predicted among non-blacks MDRD (S/P/Bld) [Vol rate/Area] 18 mL/min/{1.73_m2} Low >60 [facility] Comment on above: mL/min/1.73m2 CKD-EP I Creatinine Equation (2020) Potassium measurement (mass/ volume)Ordered By: Hien Louie on 07-19-2024 Potassium (Unsp spec) [Mass/Vol] 4.1 mmol/L 3.3-5.1 [facility] Serum creatinine measurement (mass/volume)Ordered By: Hien Louie on 07-19-2024 Creatinine [Mass/Vol] 2.60 mg/dL High 0.70-1.20 [facility] Serum glucose measurement (m ass/volume)Ordered By: Hien Louie on 07-19-2024 Glucose [Mass/Vol] 88 mg/dL 70-99 [facility] Serum or plasma calcium geoffrey urement (mass/volume)Ordered By: Hien Louie on 07-19-2024 Calcium [Mass/Vol] 12.3 mg/dL High 7.6-11.0 [facility] Serum or plasma urea nitroge n measurement (mass/volume)Ordered By: Hien Louie on 07-19-2024 Urea nitrogen [Mass/Vol] 50 mg/dL High 06-08 [facility] Sodium levelOrdered By: Sarita Louie on 07-19-2024 Sodium [Moles/Vol] 140 mmol/L 133-145 [facility] Basic Metabolic Profile (BMP )on 07-12-2024 BUN Normal 06-08 [facility] Comment on above: Result Comment: PT R EFUSED Performed By: #### L 814.7410 #### [facility] [address] [place], [address] BUN/CRE Normal 12-09 [facility] Comment on above: Result Comment: PT R EFUSED Performed By: #### L 300.3900 #### [facility] [address] [place], [address] Calcium Normal 7.6-11.0 [facility] Comment on above: Result Comment: PT R EFUSED Performed By: #### L 300.3900 #### [facility] [address] [place], [address] CL Normal 98-108 [facility] Comment on above: Result Comment: PT R EFUSED Performed By: #### L 300.3900 #### [facility] [address] [place], [address] CO2 Normal 21.0-32.0 [facility] Comment on above: Result Comment: PT R EFUSED Performed By: #### L 300.3900 #### [facility] [address] [place], [address] CREAT,SERUM Normal 0.70-1.20 [facility] Comment on above: Result Comment: PT R EFUSED Performed By: #### L 300.3900 #### [facility] [address] [place], [address] eGFR Normal >60 [facility] Comment on above: Result Comment: PT R EFUSED Performed By: #### L 300.3900 #### [facility] [address] [place], [address] GAP Normal 5-15 [facility] Comment on above: Result Comment: PT R EFUSED Performed By: #### L 300.3900 #### [facility] [address] [place], [address] GLU Normal 70-99 [facility] Comment on above: Result Comment: PT R EFUSED Performed By: #### L 300.3900 #### [facility] [address] [place], [address] Potassium Normal 3.3-5.1 [facility] Comment on above: Result Comment: PT R EFUSED Performed By: #### L 300.3900 #### [facility] [address] [place], [address] Basic Metabolic Profile (BMP) Normal 133-145 [facility] Comment on above: Result Comment: PT R EFUSED Performed By: #### L 300.3900 #### [facility] [address] [place], [address] International normalized rat io (INR) calculationOrdered By: Hien Louie on 07-12-2024 INR Coag (Bld) [Relative time] 3.0 {INR} [facility] Prothrombin Time w/INRon INR Coag (PPP) [Relative time] 3.0 {INR} Normal [facility] Comment on above: Performed By: #### L 300.3900 #### [facility] [address] [place], [address] PT Coag (PPP) [Time] 32.1 s High 11.7-14.9 [facility] Comment on above: Performed By: #### L 300.3900 #### [facility] [address] [place], [address] Prothrombin timeOrdered By: Hien Louie on 07-12-2024 PT Coag (PPP) [Time] 32.1 s High 11.7-14.9 [facility] Anion gap in Serum or Plasma Ordered By: Hien Louie on 07-05-2024 Anion gap [Moles/Vol] 12 mmol/L 07-04 [facility] BUN/creatinine ratioOrdered By: Hien Louie on 07-05-2024 Urea nitrogen/Creatinine [Mass ratio] 22.3 mg/mg High 10 [facility] Basic Metabolic Profile (BMP )on 07-05-2024 BUN/CRE 22.3 RATIO High 12-09 [facility] Comment on above: Order Comment: DO AL AMARI WITH BMP Performed By: #### L 100.0100, L500.2500 #### [facility] [address] [place], [address] Calcium [Mass/Vol] 11.2 mg/dL High 7.6-11.0 [facility] Comment on above: Order Comment: DO AL AMARI WITH BMP Performed By: #### L 100.0100, L500.2500 #### [facility] [address] [place], [address] Chloride [Moles/Vol] 100 mmol/L Normal 98-108 [facility] Comment on above: Order Comment: DO AL AMARI WITH BMP Performed By: #### L 100.0100, L500.2500 #### [facility] [address] [place], [address] CO2 [Moles/Vol] 26.5 mmol/L Normal 21.0-32.0 [facility] Comment on above: Order Comment: DO AL AMARI WITH BMP Performed By: #### L 100.0100, L500.2500 #### [facility] [address] [place], [address] Creatinine [Mass/Vol] 2.79 mg/dL High 0.70-1.20 [facility] Comment on above: Order Comment: DO AL AMARI WITH BMP Performed By: #### L 100.0100, L500.2500 #### [facility] [address] [place], [address] GAP 12 Normal 5-15 [facility] Comment on above: Order Comment: DO AL AMARI WITH BMP Performed By: #### L 100.0100, L500.2500 #### [facility] [address] [place], [address] GFR/1.73 sq M.predicted among non-blacks MDRD (S/P/Bld) [Vol rate/Area] 16 mL/min/{1.73_m2} Low >60 [facility] Comment on above: Order Comment: DO AL AMARI WITH BMP Result Comment: mL/m in/1.73m2 CKD-EPI Creatinine Equation (2020) Performed By: #### L 100.0100, L500.2500 #### [facility] [address] [place], [address] Glucose [Mass/Vol] 93 mg/dL Normal 70-99 [facility] Comment on above: Order Comment: DO AL AMARI WITH BMP Performed By: #### L 100.0100, L500.2500 #### [facility] [address] [place], [address] Potassium [Moles/Vol] 4.2 mmol/L Normal 3.3-5.1 [facility] Comment on above: Order Comment: DO AL AMARI WITH BMP Performed By: #### L 100.0100, L500.2500 #### [facility] [address] [place], [address] Sodium [Moles/Vol] 139 mmol/L Normal 133-145 [facility] Comment on above: Order Comment: DO AL AMARI WITH BMP Performed By: #### L 100.0100, L500.2500 #### [facility] [address] [place], [address] Urea nitrogen [Mass/Vol] 62 mg/dL High 4-19 [facility] Comment on above: Order Comment: DO AL AMARI WITH BMP Performed By: #### L 100.0100, L500.2500 #### [facility] [address] [place], [address] Carbon dioxide, total [Moles /volume] in Central venous bloodOrdered By: Hien Louie on 07-05-2024 CO2 [Moles/Vol] 26.5 mmol/L 21.0-32.0 [facility] Chloride assayOrdered By: Lei Louie on 07-05-2024 Chloride [Moles/Vol] 100 mmol/L 98-108 [facility] Glomerular filtration rate ( GFR) estimation/1.73 sq m using serum, plasma, or whole bOrdered By: Hien Louie on 07-05-2024 GFR/1.73 sq M.predicted among non-blacks MDRD (S/P/Bld) [Vol rate/Area] 16 mL/min/{1.73_m2} Low >60 [facility] Comment on above: mL/min/1.73m2 CKD-EP I Creatinine Equation (2020) Potassium measurement (mass/ volume)Ordered By: Hien Louie on 07-05-2024 Potassium (Unsp spec) [Mass/Vol] 4.2 mmol/L 3.3-5.1 [facility] Prothrombin Time w/INRon INR Coag (PPP) [Relative time] 3.9 {INR} Normal [facility] Comment on above: Order Comment: Comme nts: DO ALONG WITH BMP Performed By: #### L 100.0100, L500.2500 #### [facility] [address] [place], [place], [id number] PT Coag (PPP) [Time] 38.7 s High 11.7-14.9 [facility] Comment on above: Order Comment: Comme nts: DO ALONG WITH BMP Performed By: #### L 100.0100, L500.2500 #### [facility] [address] [place], [address] Serum creatinine measurement (mass/volume)Ordered By: Hien Louie on 07-05-2024 Creatinine [Mass/Vol] 2.79 mg/dL High 0.70-1.20 [facility] Serum glucose measurement (m ass/volume)Ordered By: Hien Louie on 07-05-2024 Glucose [Mass/Vol] 93 mg/dL 70-99 [facility] Serum or plasma calcium geoffrey urement (mass/volume)Ordered By: Hien Louie on 07-05-2024 Calcium [Mass/Vol] 11.2 mg/dL High 7.6-11.0 [facility] Serum or plasma urea nitroge n measurement (mass/volume)Ordered By: Hien Louie on 07-05-2024 Urea nitrogen [Mass/Vol] 62 mg/dL High 4-19 [facility] Sodium levelOrdered By: Sarita Louie on 07-05-2024 Sodium [Moles/Vol] 139 mmol/L 133-145 [facility] .Auto Diffon 07-02-2024 Basophil, Absolute 0.0 10 3/mcL Normal 0.0-0.3 [facility] Comment on above: Performed By: #### A SEDRICK, CBC, ADIFF #### [address] [address] Basophils/100 WBC (Bld) 0.2 % Normal 0.0-2.5 [facility] Comment on above: Performed By: #### A SEDRICK, CBC, ADIFF #### [address] [address] Eosinophil, Absolute 0.0 10 3/mcL Normal 0.0-0.7 [facility] Comment on above: Performed By: #### A SEDRICK, CBC, ADIFF #### [address] [address] Eosinophils/100 WBC (Bld) 0.0 % Normal 0.0-6.0 [facility] Comment on above: Performed By: #### A SEDRICK, CBC, ADIFF #### [address] [address] Lymphocyte, Absolute 0.4 10 3/mcL Low 0.9-4.3 [facility] Comment on above: Performed By: #### A SEDRICK, CBC, ADIFF #### [address] [address] Lymphocytes/100 WBC (Bld) 9.4 % Low 20.0-40.0 [facility] Comment on above: Performed By: #### A SEDRICK, CBC, ADIFF #### [address] [address] Monocyte, Absolute 0.1 10 3/mcL Normal 0.1-1.4 [facility] Comment on above: Performed By: #### A SEDRICK, CBC, ADIFF #### [address] [address] Monocytes/100 WBC (Bld) 1.1 % Low 2.0-13.0 [facility] Comment on above: Performed By: #### A SEDRICK, CBC, ADIFF #### [address] [address] Neutrophils/100 WBC (Bld) 89.3 % High 50.0-75.0 [facility] Comment on above: Performed By: #### A SEDRICK, CBC, ADIFF #### [address] [address] .GFRon 07-02-2024 Estimated Glomerular Filtration Rate 18 ml/min/1.73sqm Normal [facility] Comment on above: Result Comment: [...] By: #### A SEDRICK, CBC, ADIFF #### [address] [address] .NEUABSon 07-02-2024 Neutrophil, Absolute 4.1 10 3/mcL Normal 2.3-8.1 [facility] Comment on above: Performed By: #### A SEDRICK, CBC, ADIFF #### [address] [address] BMPon 07-02-2024 BUN/Creatinine Ratio 23.1 ratio High 10.0-22.0 [facility] Comment on above: Performed By: #### A SEDRICK, CBC, ADIFF #### [address] [address] Calcium [Mass/Vol] 9.4 mg/dL Normal 8.7-10.4 [facility] Comment on above: Performed By: #### A SEDRICK, CBC, ADIFF #### [address] [address] Chloride [Moles/Vol] 109 mmol/L Normal 98-110 [facility] Comment on above: Performed By: #### A SEDRICK, CBC, ADIFF #### [address] [address] CO2 [Moles/Vol] 22 mmol/L Normal 22-32 [facility] Comment on above: Performed By: #### A SEDRICK, CBC, ADIFF #### [address] [address] Creatinine [Mass/Vol] 2.64 mg/dL High 0.50-1.20 [facility] Comment on above: Result Comment: Test ing performed on Synapse Wireless analyzer using enzymatic creatinine methodology. Performed By: #### A SEDRICK, CBC, ADIFF #### [address] [address] Electrolyte Balance 8.0 mEq/L Normal 4.0-15.0 [facility] Comment on above: Performed By: #### A SEDRICK, CBC, ADIFF #### [address] [address] Glucose [Mass/Vol] 128 mg/dL High 82-115 [facility] Comment on above: Performed By: #### A SEDRICK, CBC, ADIFF #### [address] [address] Potassium [Moles/Vol] 4.5 mmol/L Normal 3.5-5.0 [facility] Comment on above: Performed By: #### A SEDRICK, CBC, ADIFF #### [address] [address] Sodium [Moles/Vol] 139 mmol/L Normal 136-145 [facility] Comment on above: Performed By: #### A SEDRICK, CBC, ADIFF #### [address] [address] Urea nitrogen [Mass/Vol] 61.0 mg/dL High 8.0-22.0 [facility] Comment on above: Performed By: #### A SEDRICK, CBC, ADIFF #### [address] [address] CBCon 07-02-2024 Erythrocyte distribution width (RBC) [Ratio] 14.8 % Normal 11.5-15.5 [facility] Comment on above: Order Comment: order ed secondary to warfarin order Performed By: #### A SEDRICK, CBC, ADIFF #### [place] [id number] Hematocrit (Bld) [Volume fraction] 28.5 % Low 34.0-46.0 [facility] Comment on above: Order Comment: order ed secondary to warfarin order Performed By: #### A SEDRICK, CBC, ADIFF #### [place] [address] Hgb 9.6 G/dL Low 12.0-16.0 [facility] Comment on above: Order Comment: order ed secondary to warfarin order Performed By: #### A SEDRICK, CBC, ADIFF #### [place] [address] MCH (RBC) [Entitic mass] 34.4 pg High 27.0-33.0 [facility] Comment on above: Order Comment: order ed secondary to warfarin order Performed By: #### A SEDRICK, CBC, ADIFF #### [place] [address] MCHC 33.8 G/dL Normal 32.0-36.0 [facility] Comment on above: Order Comment: order ed secondary to warfarin order Performed By: #### A SEDRICK, CBC, ADIFF #### [place] [phone] MCV (RBC) [Entitic vol] 101.9 fL High 80.0-99.0 [facility] Comment on above: Order Comment: order ed secondary to warfarin order Performed By: #### A SEDRICK, CBC, ADIFF #### [place] [address] Platelet 227 10 3/mcL Normal 150-450 [facility] Comment on above: Order Comment: order ed secondary to warfarin order Performed By: #### A SEDRICK, CBC, ADIFF #### [address] [address] Platelet mean volume (Bld) [Entitic vol] 7.5 fL Normal 6.6-10.5 [facility] Comment on above: Order Comment: order ed secondary to warfarin order Performed By: #### A SEDRICK, CBC, ADIFF #### [place] [address] RBC 2.80 10 6/mcL Low 4.10-5.30 [facility] Comment on above: Order Comment: order ed secondary to warfarin order Performed By: #### A SEDRICK, CBC, ADIFF #### [place] [address] WBC 4.6 10 3/mcL Normal 4.5-10.8 [facility] Comment on above: Order Comment: order ed secondary to warfarin order Performed By: #### A SEDRICK, CBC, ADIFF #### [place] [address] LABORATORYOrdered By: SYSTEM SYSTEM on 07-02-2024 Basophils (Bld) [#/Vol] 0.0 103/mcL Normal 0.0 - 0.3 10^3/mcL Workflow SS Basophils/100 WBC (Bld) 0.2 % Normal 0.0 - 2.5 % Workflow SS Calcium [Mass/Vol] 9.4 mg/dL Normal 8.7 - 10. 4 mg/dL ADM SS Chloride [Moles/Vol] 109 mmol/L Normal 98 - 11 0 mEq/L ADM SS CO2 [Moles/Vol] 22 mmol/L Normal 22 - 32 mEq/L ADM SS Creatinine [Mass/Vol] 2.64 mg/dL High 0.50 - 1.20 mg/dL ADM SS Comment on above: Interpretive Data: T esting performed on [employer] CH analyzer using enzymatic creatinine methodology. Electrolyte Balance 8.0 mEq/L Normal 4.0 - 15 .0 mEq/L ADM SS Eosinophils (Bld) [#/Vol] 0.0 103/mcL Normal 0.0 - 0.7 10^3/mcL AH Workflow SS Eosinophils/100 WBC (Bld) 0.0 % Normal 0.0 - 6.0 % Workflow SS Erythrocyte distribution width (RBC) [Ratio] 14.8 % Normal 11.5 - 15.5 % AH Workflow SS Estimated Glomerular Filtration Rate 18 [...] 28.5 % Low 34.0 - 46.0 % AH Workflow SS Hemoglobin (Bld) [Mass/Vol] 9.6 G/dL Low 12.0 - 16.0 G/dL AH Workflow SS Lymphocytes (Bld) [#/Vol] 0.4 103/mcL Low 0.9 - 4.3 10^3/mcL Workflow SS Lymphocytes/100 WBC (Bld) 9.4 % Low 20.0 - 40.0 % AH Workflow SS MCH (RBC) [Entitic mass] 34.4 pg High 27. 0 - 33.0 pg AH Workflow SS MCHC 33.8 G/dL Normal 32.0 - 36.0 G/dL AH Workflow SS MCV (RBC) [Entitic vol] 101.9 fL High 80.0 - 99.0 fL AH Workflow SS Monocytes (Bld) [#/Vol] 0.1 103/mcL Normal 0.1 - 1.4 10^3/mcL Workflow SS Monocytes/100 WBC (Bld) 1.1 % Low 2.0 - 13.0 % AH Workflow SS Neutrophils (Bld) [#/Vol] 4.1 103/mcL Normal 2.3 - 8.1 10^3/mcL AH Workflow SS Neutrophils/100 WBC (Bld) 89.3 % [...] International Ratio 3.1 ratio Invalid Interpretation Code [facility] Comment on above: Interpretive Data: Lisandra gomez [employer] (CHEST, 1991, 102:312S-25S) recommended therapeutic range for oral anticoagulant therapy is: LOW RISK: Prophylaxis of venous thrombosis INR: 2.0-3.0 Treatment of pulmonary embolism 2.0-3.0 Prevention of systemic embolism 2.0-3.0 HIGH RISK: Mechanical prosthetic valves 2.5-3.5 RBC (Bld) [#/Vol] 2.80 106/mcL Low 4.10 - 5.3 0 10^6/mcL Workflow SS Sodium [Moles/Vol] 139 mmol/L Normal 136 - 145 mEq/L ADM SS Urea nitrogen [Mass/Vol] 61.0 mg/dL High 8.0 - 22.0 mg/dL ADM SS Urea nitrogen/Creatinine [Mass ratio] 23.1 ratio High 10.0 - 22.0 ratio ADM SS WBC (Bld) [#/Vol] 4.6 103/mcL Normal 4.5 - 10.8 10^3/mcL Workflow SS PROon 07-02-2024 INR Coag (PPP) [Relative time] 3.1 {INR} Normal [facility] Comment on above: Order Comment: order ed secondary to warfarin order Result Comment: [employer] (CHEST, 1991, 102:312S-25S) recommended therapeutic range for oral anticoagulant therapy is: LOW RISK: Prophylaxis of venous thrombosis INR: 2.0-3.0 Treatment of pulmonary embolism 2.0-3.0 Prevention of systemic embolism 2.0-3.0 HIGH RISK: Mechanical prosthetic valves 2.5-3.5 Performed By: #### A SEDRICK, CBC, ADIFF #### [address] [address] PT Coag (PPP) [Time] 35.6 s High 9.0-14.4 [facility] Comment on above: Order Comment: order ed secondary to warfarin order Result Comment: Effe ctive 09/04/07, Protime results may be affected by some antibiotics (i.e. Ciprofloxacin, Azithromycin, Bactrim) which may potentiate the action of oral anticoagulants, with further increases in Protime/INR. Performed By: #### A SEDRICK, CBC, ADIFF #### [address] [address] .GFRon 07-01-2024 Estimated Glomerular Filtration Rate 19 ml/min/1.73sqm Normal [facility] Comment on above: Result Comment: [...] P RO, ABSGEL, BMP, ABOGEL, GFR #### [facility] [address] [place] [address] ABO/Rh (Gel)on 07-01-2024 ABO/Rh Interp Positive Invalid Interpretation Code [facility] Comment on above: Performed By: #### A SEDRICK, CBC, ADIFF #### [facility] [address] [place] [address] ABS (Gel)on 07-01-2024 ABSC Interp (Gel) Negative Normal [facility] Comment on above: Performed By: #### A SEDRICK, CBC, ADIFF #### [address] [address] BMPon 07-01-2024 BUN/Creatinine Ratio 20.7 ratio Normal 10.0-22.0 [facility] Comment on above: Performed By: #### P RO, ABSGEL, BMP, ABOGEL, GFR #### [address] [address] Calcium [Mass/Vol] 8.5 mg/dL Low 8.7-10.4 [facility] Comment on above: Performed By: #### P RO, ABSGEL, BMP, ABOGEL, GFR #### [address] [address] Chloride [Moles/Vol] 112 mmol/L High 98-110 [facility] Comment on above: Performed By: #### P RO, ABSGEL, BMP, ABOGEL, GFR #### [address] [address] CO2 [Moles/Vol] 20 mmol/L Low 22-32 [facility] Comment on above: Performed By: #### P RO, ABSGEL, BMP, ABOGEL, GFR #### [address] [address] Creatinine [Mass/Vol] 2.51 mg/dL High 0.50-1.20 [facility] Comment on above: Result Comment: Test ing performed on [employer] analyzer using enzymatic creatinine methodology. Performed By: #### P RO, ABSGEL, BMP, ABOGEL, GFR #### [address] [address] Electrolyte Balance 12.0 mEq/L Normal 4.0-15.0 [facility] Comment on above: Performed By: #### P RO, ABSGEL, BMP, ABOGEL, GFR #### [address] [address] Glucose [Mass/Vol] 69 mg/dL Low 82-115 [facility] Comment on above: Performed By: #### P RO, ABSGEL, BMP, ABOGEL, GFR #### [address] [address] Potassium [Moles/Vol] 3.0 mmol/L Low 3.5-5.0 [facility] Comment on above: Performed By: #### P RO, ABSGEL, BMP, ABOGEL, GFR #### [place] [address] Sodium [Moles/Vol] 144 mmol/L Normal 136-145 [facility] Comment on above: Performed By: #### P RO, ABSGEL, BMP, ABOGEL, GFR #### [place] [address] Urea nitrogen [Mass/Vol] 52.0 mg/dL High 8.0-22.0 [facility] Comment on above: Performed By: #### P RO, ABSGEL, BMP, ABOGEL, GFR #### [place] [address] LABORATORYOrdered By: Stacy Worthington on 07-01-2024 ABO and Rh group Nom (Bld) Blood group A Rh(D) positive Invalid Interpretation Code BB Auto SS Blood group antibody screen Ql Negative ABSC (07/01/24 12:14 PM) Normal AH BB Auto SS LABORATORYOrdered By: SYSTEM SYSTEM on 07-01-2024 Calcium [Mass/Vol] 8.5 mg/dL Low 8.7 - 10. 4 mg/dL AH ADM SS Chloride [Moles/Vol] 112 mmol/L High 98 - 11 0 mEq/L AH ADM SS CO2 [Moles/Vol] 20 mmol/L Low 22 - 32 mEq/L AH ADM SS Creatinine [Mass/Vol] 2.51 mg/dL High 0.50 - 1.20 mg/dL AH ADM SS Comment on above: Interpretive Data: T esting performed on [employer] analyzer using enzymatic creatinine methodology. Electrolyte Balance 12.0 mEq/L Normal 4.0 - 15 .0 mEq/L AH ADM SS Estimated Glomerular Filtration Rate 19 [...] Ratio 2.5 ratio Invalid Interpretation Code [facility] Comment on above: Interpretive Data: Lisandra gomez [employer] (CHEST, 1991, 102:312S-25S) recommended therapeutic range for oral anticoagulant therapy is: LOW RISK: Prophylaxis of venous thrombosis INR: 2.0-3.0 Treatment of pulmonary embolism 2.0-3.0 Prevention of systemic embolism 2.0-3.0 HIGH RISK: Mechanical prosthetic valves 2.5-3.5 Sodium [Moles/Vol] 144 mmol/L Normal 136 - 145 mEq/L ADM SS Urea nitrogen [Mass/Vol] 52.0 mg/dL High 8.0 - 22.0 mg/dL ADM SS Urea nitrogen/Creatinine [Mass ratio] 20.7 ratio Normal 10.0 - 22.0 ratio ADM SS PROon 07-01-2024 INR Coag (PPP) [Relative time] 2.5 {INR} Normal [facility] Comment on above: Result Comment: [employer] (CHEST, 1991, 102:312S-25S) recommended therapeutic range for oral anticoagulant therapy is: LOW RISK: Prophylaxis of venous thrombosis INR: 2.0-3.0 Treatment of pulmonary embolism 2.0-3.0 Prevention of systemic embolism 2.0-3.0 HIGH RISK: Mechanical prosthetic valves 2.5-3.5 Performed By: #### A SEDRICK, CBC, ADIFF #### [facility] [address] [place] [address] PT Coag (PPP) [Time] 29.1 s High 9.0-14.4 [facility] Comment on above: Result Comment: Effe ctive 09/04/07, Protime results may be affected by some antibiotics (i.e. Ciprofloxacin, Azithromycin, Bactrim) which may potentiate the action of oral anticoagulants, with further increases in Protime/INR. Performed By: #### A SEDRICK, CBC, ADIFF #### [facility] [address] [place] [address] 12 Lead [place] performed [place] [facility] [place] 06-28-2024 12 Lead EKG performed by [place] [address] [place] [address] 12 Lead EKG performed [place] [facility] 06/28/24 06 MR#: [id number] Acct: [id number] Name: DONNA NARANJO I Rep #: [id number] : 1940 83 From: Hien Louie SALES TRAINEE SALES TRAINEE-C Attending Dr: Hien Louie, SALES TRAINEE-C Status: DEP A MB Ordering Dr: Hien Louie SALES TRAINEE SALES TRAINEE-C Date: 06/28/24 [place] [facility] [place] [place] Sex: F C Admitted: BMS/12 Lead EKG performed [place] [facility] ECG Report Interpretation -------Sinus Rhythm -Intraventricular conduction defect and left axis -possible anterior fascicular block consider ventricular hypertrophy. - Anteroseptal -lateral infarct Old. -Nonspecific ST depression -Seen with left ventricular hypertrophy (strain). ABNORMAL Electronically signed on 07/02/2024 at 08:13 by [employer] Version [id number] 07/02/24815 Date Hien Louie NP SALES TRAINEE-C CC: Dr. Mireille Garnica MD Date Dictated: 06/28/24599 Date Transcribed: 05/09/25 0600 Python Engineer: KR Signed Normal [facility] Absolute lymphocyte countOrd ered By: Hien Louie on 06-28-2024 Lymphocytes Auto (Unsp spec) [#/Vol] 0.83 10*3/uL 0.83-4.51 [facility] Absolute neutrophil countOrd ered By: Hien Louie on 06-28-2024 Neutrophils (Bld) [#/Vol] 5.4 10*3/uL 2.0-7.7 [facility] Automated lymphocyte count a s percentage of total leukocytesOrdered By: Hien Louie on 06-28-2024 Lymphocytes/100 WBC Auto (Unsp spec) 10.2 % Low 19-41 [facility] Basic Metabolic Profile (BMP )on 06-28-2024 BUN/CRE 21.5 RATIO High 10-20 [facility] Comment on above: Performed By: #### L 300.3900 #### [facility] [address] [place], [address] Calcium [Mass/Vol] 10.1 mg/dL Normal 7.6-11.0 [facility] Comment on above: Performed By: #### L 300.3900 #### [facility] [address] [place], [address] Chloride [Moles/Vol] 104 mmol/L Normal 98-108 [facility] Comment on above: Performed By: #### L 300.3900 #### [facility] [address] [place], [address] CO2 [Moles/Vol] 21.4 mmol/L Normal 21.0-32.0 [facility] Comment on above: Performed By: #### L 300.3900 #### [facility] [address] [place], [address] Creatinine [Mass/Vol] 2.75 mg/dL High 0.70-1.20 [facility] Comment on above: Performed By: #### L 300.3900 #### [facility] [address] [place], [address] GAP 14 Normal 5-15 [facility] Comment on above: Performed By: #### L 300.3900 #### [facility] [address] [place], [address] GFR/1.73 sq M.predicted among non-blacks MDRD (S/P/Bld) [Vol rate/Area] 17 mL/min/{1.73_m2} Low >60 [facility] Comment on above: Result Comment: mL/m in/1.73m2 CKD-EPI Creatinine Equation (2020) Performed By: #### L 300.3900 #### [facility] [address] [place], [address] Glucose [Mass/Vol] 83 mg/dL Normal 70-99 [facility] Comment on above: Performed By: #### L 300.3900 #### [facility] [address], [address] Potassium [Moles/Vol] 4.0 mmol/L Normal 3.3-5.1 [facility] Comment on above: Performed By: #### L 300.3900 #### [facility] [address], [address] Sodium [Moles/Vol] 139 mmol/L Normal 133-145 [facility] Comment on above: Performed By: #### L 300.3900 #### [facility] [address] [place], [address] Urea nitrogen [Mass/Vol] 59 mg/dL High 4-19 [facility] Comment on above: Performed By: #### L 300.3900 #### [facility] [address], [address] Basophil percentageOrdered B y: Hien Louie on 06-28-2024 Basophils/100 WBC (Bld) 1.2 % High 0-1 [facility] CBC W/Diff, Automatedon 05-0 9-2024 Absolute Lymph 0.83 X10 3/uL Normal 0.83-4.51 [facility] Comment on above: Performed By: #### L 300.3900 #### [facility] [address] [place], [address] Absolute Neut 5.4 X10 3/uL Normal 2.0-7.7 [facility] Comment on above: Performed By: #### L 300.3900 #### [facility] [address] [place], [address] Basophils/100 WBC (Bld) 1.2 % High 0-1 [facility] Comment on above: Performed By: #### L 300.3900 #### [facility] [address] [place], [address] Eosinophils/100 WBC (Bld) 4.8 % Normal 0-5 [facility] Comment on above: Performed By: #### L 300.3900 #### [facility] [address] [place], [address] Erythrocyte distribution width (RBC) [Ratio] 14.2 % Normal 11.6-14.6 [facility] Comment on above: Performed By: #### L 300.3900 #### [facility] [address] [place], [address] Hematocrit (Bld) [Volume fraction] 34.3 % Low 37-47 [facility] Comment on above: Performed By: #### L 300.3900 #### [facility] [address] [place], [address] Hemoglobin (Bld) [Mass/Vol] 11.3 g/dL Low 12.0-15.0 [facility] Comment on above: Performed By: #### L 300.3900 #### [facility] [address] [place], [address] IG% 0.500 Normal 0.0-0.9 [facility] Comment on above: Result Comment: IG% - Immature Granulocytes (promyelocytes, myelocytes and metamyelocytes) > 1% indicates that a LEFT SHIFT is Present. Performed By: #### L 300.3900 #### [facility] [address] [place], [address] Lymphocytes/100 WBC (Bld) 10.2 % Low 19-41 [facility] Comment on above: Performed By: #### L 300.3900 #### [facility] [address] [place], [address] MCH (RBC) [Entitic mass] 33.7 pg High 27.0-32.0 [facility] Comment on above: Performed By: #### L 300.3900 #### [facility] [address] [place], [address] MCHC (RBC) [Mass/Vol] 32.9 g/dL Normal 32-36 [facility] Comment on above: Performed By: #### L 300.3900 #### [facility] [address] [place], [address] MCV (RBC) [Entitic vol] 102.4 fL High 81-99 [facility] Comment on above: Performed By: #### L 300.3900 #### [facility] [address] [place], [address] Monocytes/100 WBC (Bld) 16.8 % High 0-10 [facility] Comment on above: Performed By: #### L 300.3900 #### [facility] [address] [place], [address] Neutrophils/100 WBC (Bld) 66.5 % Normal 47-70 [facility] Comment on above: Performed By: #### L 300.3900 #### [facility] [address] [place], [address] Nucleated RBC (Bld) [#/Vol] 0 10*3/uL Normal 0-5 [facility] Comment on above: Performed By: #### L 300.3900 #### [facility] [address] [place], [address] Platelet mean volume (Bld) [Entitic vol] 9.6 fL Normal 6.2-12.0 [facility] Comment on above: Performed By: #### L 300.3900 #### [facility] [address] [place], [address] Platelets (Bld) [#/Vol] 281 10*3/uL Normal 150-450 [facility] Comment on above: Performed By: #### L 300.3900 #### [facility] [address] [place], [address] RBC (Bld) [#/Vol] 3.35 10*6/uL Low 4.2-5.4 [facility] Comment on above: Performed By: #### L 300.3900 #### [facility] [address] [place], [address] RDW SD 53.1 fl High 35.1-43.9 [facility] Comment on above: Performed By: #### L 300.3900 #### [facility] [address] [place], [address] WBC (Bld) [#/Vol] 8.2 10*3/uL Normal 4.4-11.0 [facility] Comment on above: Performed By: #### L 300.3900 #### [facility] [address] [place], [address] Cardiology Visit Reporton Cardiology Visit Report [facility] [address] [place] [address] OFFICE VISIT Date of Service: 06/28/24 MR#: [id number] Acct: [id number] Name: DONNA NARANJO I Rep #: [id number] : 1940 Provider: AB rivas Age/Sex: 83/F [place] [facility] [place] [place] Status: Signed HPI HPI History of Present [...] she is scheduled for an ablation at [facility] on Monday. 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 Normal [facility] Eosinophil percentageOrdered By: Hien Louie on 06-28-2024 Eosinophils/100 WBC (Bld) 4.8 % 0-5 [facility] Erythrocyte distribution wid th ratioOrdered By: Hien Louie on 06-28-2024 Erythrocyte distribution width (RBC) [Ratio] 14.2 % 11.6-14.6 [facility] Erythrocyte distribution wid th standard deviationOrdered By: Hien Louie on 06-28-2024 Erythrocyte distribution width (RBC) [Ratio] 53.1 fl High 35.1-43.9 [facility] Hematocrit Auto (Bld) [Volum e fraction]Ordered By: Hien Louie on 06-28-2024 Hematocrit (Bld) [Volume fraction] 34.3 % Low 37-47 [facility] Hemoglobin measurementOrdere d By: Hien Louie on 06-28-2024 Hemoglobin (Bld) [Mass/Vol] 11.3 g/dL Low 12.0-15.0 [facility] Immature granulocytes/100 WB C Auto (Bld)Ordered By: Hien Louie on 06-28-2024 Immature granulocytes/100 WBC (Bld) 0.500 % 0.0-0.9 [facility] Comment on above: IG% - Immature Granu locytes (promyelocytes, myelocytes and metamyelocytes) > 1% indicates that a LEFT SHIFT is Present. L503.7505on 06-28-2024 Natriuretic peptide B (Bld) [Mass/Vol] 4501 pg/mL High <=1800 [facility] Comment on above: Result Comment: Hear t Failure Unlikely: < 300 pg/mL Heart Failure Likely < 50 Years: > 450 pg/mL 50-75 Years: > 900 pg/mL >75 Years: > 1800 pg/mL Performed By: #### L 300.3900 #### [facility] [address] [place], [address] MCV (mean corpuscular volume ) determinationOrdered By: Hien Louie on 06-28-2024 MCV (RBC) [Entitic vol] 102.4 fL High 81-99 [facility] Mean corpuscular hemoglobin (MCH) determinationOrdered By: Hien Louie on 06-28-2024 MCH (RBC) [Entitic mass] 33.7 pg High 27.0-32.0 [facility] Mean corpuscular hemoglobin concentration (MCHC) determinationOrdered By: Hien Louie on 06-28-2024 MCHC (RBC) [Mass/Vol] 32.9 g/dL 32-36 [facility] Mean platelet volume determi nationOrdered By: Hien Louie on 06-28-2024 Platelet mean volume (Bld) [Entitic vol] 9.6 fL 6.2-12.0 [facility] Monocyte percentageOrdered B y: Hien Louie on 06-28-2024 Monocytes/100 WBC (Bld) 16.8 % High 0-10 [facility] Natriuretic peptide.B prohor rolanda N-Terminal [Mass/volume] in Serum or PlasmaOrdered By: Hien Louie on 06-28-2024 Natriuretic peptide.B prohormone N-Terminal [Mass/Vol] 4501 pg/mL High <1800 [facility] Comment on above: Heart Failure Unlike ly: < 300 pg/mLHeart Failure Likely< 50 Years: > 450 pg/mL50-75 Years: > 900 pg/mL>75 Years: > 1800 pg/mL Neutrophil percentageOrdered By: Hien Louie on 06-28-2024 Neutrophils/100 WBC (Bld) 66.5 % 47-70 [facility] Nucleated red blood cell per centageOrdered By: Hien Louie on 06-28-2024 Nucleated RBC/100 WBC (Bld) [Ratio] 0 % 0-5 [facility] Platelet countOrdered By: Lei Louie on 06-28-2024 Platelets (Bld) [#/Vol] 281 10*3/uL 150-450 [facility] Prothrombin Time w/INRon INR Coag (PPP) [Relative time] 2.8 {INR} Normal [facility] Comment on above: Performed By: #### L 300.3900 #### [facility] [address] [place], [place], [id number] PT Coag (PPP) [Time] 30.2 s High 11.7-14.9 [facility] Comment on above: Performed By: #### L 300.3900 #### [facility] [address] [place], [place], [id number] RBC Auto (Bld) [#/Vol]Ordere d By: Hien Louie on 06-28-2024 RBC (Bld) [#/Vol] 3.35 10*6/uL Low 4.2-5.4 [facility] White blood cell (WBC) count Ordered By: Hien Louie on 06-28-2024 WBC (Bld) [#/Vol] 8.2 10*3/uL 4.4-11.0 [facility] .Auto Diffon 06-17-2024 Basophil, Absolute 0.1 10 3/mcL Normal 0.0-0.3 [facility] Comment on above: Performed By: #### G FR, CBC, ADIFF, ANEU, BMP #### [address] [address] Basophils/100 WBC (Bld) 1.4 % Normal 0.0-2.5 [facility] Comment on above: Performed By: #### G FR, CBC, ADIFF, ANEU, BMP #### [address] [address] Eosinophil, Absolute 0.4 10 3/mcL Normal 0.0-0.7 [facility] Comment on above: Performed By: #### G FR, CBC, ADIFF, ANEU, BMP #### [address] [address] Eosinophils/100 WBC (Bld) 6.5 % High 0.0-6.0 [facility] Comment on above: Performed By: #### G FR, CBC, ADIFF, ANEU, BMP #### [address] [address] Lymphocyte, Absolute 0.7 10 3/mcL Low 0.9-4.3 [facility] Comment on above: Performed By: #### G FR, CBC, ADIFF, ANEU, BMP #### [address] [address] Lymphocytes/100 WBC (Bld) 11.8 % Low 20.0-40.0 [facility] Comment on above: Performed By: #### G FR, CBC, ADIFF, ANEU, BMP #### [address] [address] Monocyte, Absolute 1.1 10 3/mcL Normal 0.1-1.4 [facility] Comment on above: Performed By: #### G FR, CBC, ADIFF, ANEU, BMP #### [address] [address] Monocytes/100 WBC (Bld) 18.0 % High 2.0-13.0 [facility] Comment on above: Performed By: #### G FR, CBC, ADIFF, ANEU, BMP #### [address] [address] Neutrophils/100 WBC (Bld) 62.3 % Normal 50.0-75.0 [facility] Comment on above: Performed By: #### G FR, CBC, ADIFF, ANEU, BMP #### [address] [address] .GFRon 06-17-2024 Estimated Glomerular Filtration Rate 20 ml/min/1.73sqm Normal [facility] Comment on above: Result Comment: [...] G FR, CBC, ADIFF, ANEU, BMP #### [address] [address] .NEUABSon 06-17-2024 Neutrophil, Absolute 3.9 10 3/mcL Normal 2.3-8.1 [facility] Comment on above: Performed By: #### G FR, CBC, ADIFF, ANEU, BMP #### [address] 06-17-2024 BUN/Creatinine Ratio 25.0 ratio High 10.0-22.0 [facility] Comment on above: Performed By: #### G FR, CBC, ADIFF, ANEU, BMP #### [place] [id number] Calcium [Mass/Vol] 9.6 mg/dL Normal 8.7-10.4 [facility] Comment on above: Performed By: #### G FR, CBC, ADIFF, ANEU, BMP #### [place] [id number] Chloride [Moles/Vol] 106 mmol/L Normal 98-110 [facility] Comment on above: Performed By: #### G FR, CBC, ADIFF, ANEU, BMP #### [place] [id number] CO2 [Moles/Vol] 25 mmol/L Normal 22-32 [facility] Comment on above: Performed By: #### G FR, CBC, ADIFF, ANEU, BMP #### [place] [id number] Creatinine [Mass/Vol] 2.32 mg/dL High 0.50-1.20 [facility] Comment on above: Result Comment: Test ing performed on Synapse Wireless analyzer using enzymatic creatinine methodology. Performed By: #### G FR, CBC, ADIFF, ANEU, BMP #### [address] [address] Electrolyte Balance 10.0 mEq/L Normal 4.0-15.0 [facility] Comment on above: Performed By: #### G FR, CBC, ADIFF, ANEU, BMP #### [address] [address] Glucose [Mass/Vol] 92 mg/dL Normal 82-115 [facility] Comment on above: Performed By: #### G FR, CBC, ADIFF, ANEU, BMP #### [place] [address] Potassium [Moles/Vol] 5.0 mmol/L Normal 3.5-5.0 [facility] Comment on above: Performed By: #### G FR, CBC, ADIFF, ANEU, BMP #### [place] [id number] Sodium [Moles/Vol] 141 mmol/L Normal 136-145 [facility] Comment on above: Performed By: #### G FR, CBC, ADIFF, ANEU, BMP #### [place] [id number] Urea nitrogen [Mass/Vol] 58.0 mg/dL High 8.0-22.0 [facility] Comment on above: Performed By: #### G FR, CBC, ADIFF, ANEU, BMP #### [address] [address] CBCon 06-17-2024 Erythrocyte distribution width (RBC) [Ratio] 14.3 % Normal 11.5-15.5 [facility] Comment on above: Performed By: #### G FR, CBC, ADIFF, ANEU, BMP #### [place] [id number] Hematocrit (Bld) [Volume fraction] 34.9 % Normal 34.0-46.0 [facility] Comment on above: Performed By: #### G FR, CBC, ADIFF, ANEU, BMP #### [place] [id number] Hgb 11.6 G/dL Low 12.0-16.0 [facility] Comment on above: Performed By: #### G FR, CBC, ADIFF, ANEU, BMP #### [address] [address] MCH (RBC) [Entitic mass] 33.7 pg High 27.0-33.0 [facility] Comment on above: Performed By: #### G FR, CBC, ADIFF, ANEU, BMP #### [place] [address] MCHC 33.2 G/dL Normal 32.0-36.0 [facility] Comment on above: Performed By: #### G FR, CBC, ADIFF, ANEU, BMP #### [place] [address] MCV (RBC) [Entitic vol] 101.4 fL High 80.0-99.0 [facility] Comment on above: Performed By: #### G FR, CBC, ADIFF, ANEU, BMP #### [place] [address] Platelet 273 10 3/mcL Normal 150-450 [facility] Comment on above: Performed By: #### G FR, CBC, ADIFF, ANEU, BMP #### [place] [address] Platelet mean volume (Bld) [Entitic vol] 7.4 fL Normal 6.6-10.5 [facility] Comment on above: Performed By: #### G FR, CBC, ADIFF, ANEU, BMP #### [place] [address] RBC 3.44 10 6/mcL Low 4.10-5.30 [facility] Comment on above: Performed By: #### G FR, CBC, ADIFF, ANEU, BMP #### [place] [address] WBC 6.2 10 3/mcL Normal 4.5-10.8 [facility] Comment on above: Performed By: #### G FR, CBC, ADIFF, ANEU, BMP #### [place] [address] LABORATORYOrdered By: SYSTEM SYSTEM on 06-17-2024 Basophils (Bld) [#/Vol] 0.1 103/mcL Normal 0.0 - 0.3 10^3/mcL Workflow SS Basophils/100 WBC (Bld) 1.4 % Normal 0.0 - 2.5 % Workflow SS Calcium [Mass/Vol] 9.6 mg/dL Normal 8.7 - 10. 4 mg/dL ADM SS Chloride [Moles/Vol] 106 mmol/L Normal 98 - 11 0 mEq/L ADM SS CO2 [Moles/Vol] 25 mmol/L Normal 22 - 32 mEq/L ADM [facility] Creatinine [Mass/Vol] 2.32 mg/dL High 0.50 - 1.20 mg/dL ADM [facility] Comment on above: Interpretive Data: T esting performed on Synapse Wireless analyzer using enzymatic creatinine methodology. Electrolyte Balance 10.0 mEq/L Normal 4.0 - 15 .0 mEq/L ADM [facility] Eosinophils (Bld) [#/Vol] 0.4 103/mcL Normal 0.0 - 0.7 10^3/mcL Workflow [facility] Eosinophils/100 WBC (Bld) 6.5 % High 0.0 - 6.0 % Workflow SS Erythrocyte distribution width (RBC) [Ratio] 14.3 % Normal 11.5 - 15.5 % Workflow SS Estimated Glomerular Filtration Rate 20 [...] 34.9 % Normal 34.0 - 46.0 % Workflow SS Hemoglobin (Bld) [Mass/Vol] 11.6 G/dL [...] 7.4 fL Normal 6.6 - 10.5 fL AH Workflow SS Platelets (Bld) [#/Vol] 273 103/mcL Normal 150 - 450 10^3/mcL AH Workflow SS Potassium [Moles/Vol] 5.0 mmol/L Normal 3.5 - 5.0 mEq/L AH ADM SS RBC (Bld) [#/Vol] 3.44 106/mcL Low 4.10 - 5.3 0 10^6/mcL AH Workflow SS Sodium [Moles/Vol] 141 mmol/L Normal 136 - 145 mEq/L AH ADM SS Urea nitrogen [Mass/Vol] 58.0 mg/dL High 8.0 - 22.0 mg/dL AH ADM SS Urea nitrogen/Creatinine [Mass ratio] 25.0 ratio High 10.0 - 22.0 ratio AH ADM SS WBC (Bld) [#/Vol] 6.2 103/mcL Normal 4.5 - 10.8 10^3/mcL AH Workflow SS International normalized rat io (INR) calculationOrdered By: Alfa Bush on 06-07-2024 INR Coag (Bld) [Relative time] 3.4 {INR} [facility] Prothrombin Time w/INRon INR Coag (PPP) [Relative time] 3.4 {INR} Normal [facility] Comment on above: Performed By: #### L 300.3900 #### [facility] [address] [place], [address] PT Coag (PPP) [Time] 35.4 s High 11.7-14.9 [facility] Comment on above: Performed By: #### L 300.3900 #### [facility] [address] [place], [address] Prothrombin timeOrdered By: Alfa Bush on 06-07-2024 PT Coag (PPP) [Time] 35.4 s High 11.7-14.9 [facility] Prothrombin Time w/INRon INR Coag (PPP) [Relative time] 3.3 {INR} Normal [facility] Comment on above: Performed By: #### L 300.3900 #### [facility] [address] [place], [address] PT Coag (PPP) [Time] 34.1 s High 11.7-14.9 [facility] Comment on above: Performed By: #### L 300.3900 #### [facility] [address] [place], [address] Echo, Limited Studyon 2024 Echo, Limited Study [facility] [address] [place] [address] Echo, Limited Study 05/16/24 1358 MR#: [id number] Acct: [id number] Name: DONNA NARANJO I Rep #: [id number] : 1940 83 From: Alex Sol MD Attending Dr: Alfa Bush, SALES TRAINEE-C Status: REG CLI Ordering Dr: Alfa Bush SALES TRAINEE SALES TRAINEE-C Date: 05/16/24 Location: [facility] Sex: F C Admitted: Reason For Study [...] 05/16/24 1546 Date Alex Sol MD CC: SALES TRAINEE-C Alfa Bush; Dr. Mireille Garnica MD Date Dictated: 05/16/24 1358 Date Transcribed: 05/16/24 154 Python Engineer: Signed Normal [facility] International normalized rat io (INR) calculationOrdered By: Alfa Bush on 05-16-2024 INR Coag (Bld) [Relative time] 4.1 {INR} High [facility] Limited echocardiogram repor tOrdered By: Alex Sol on 05-16-2024 Study report [facility] [address] [place] [address] Echo, Limited Study 05/16/24 1358 MR#: [id number] Acct: [id number] Name: DONNA NARANJO I Rep #:[id number] : 1940 83 From: Alex House Attending Dr: AB Salazar [facility] tus: REG CLI Ordering Dr: Alfa Bush NP Date: 05/16/24 Location: [facility] Sex: F C Admitted: Reason For [...] Bush Performed By: Kathi Napier RCS 05/16/24 154 Date _ Alex Sol MD CC: SALES TRAINEE-C Alfa Bush; Dr. Mireille Garnica MD ~ Date Dictated: 05/16/24 1358 Date Transcribed: 05/16/241545 Python Engineer: Signed [facility] Work Phone: Prothrombin Time w/INRon INR Coag (PPP) [Relative time] 4.1 {INR} Invalid Interpretation Code [facility] Comment on above: Order Comment: CRITI PAUL VALUE CALLED TO SHANIA YU05/16/24 135Reinier Cardenas.RESULTS READ BACK BY SAME. Performed By: #### L 300.3900 #### [facility] [address] [place], [address] PT Coag (PPP) [Time] 40.6 s High 11.7-14.9 [facility] Comment on above: Order Comment: CRITI PAUL VALUE CALLED TO SHANIA YU05/16/24 Cecy Cardenas.RESULTS READ BACK BY SAME. Performed By: #### L 300.3900 #### [facility] [address] [place], [address] Prothrombin timeOrdered By: Alfa Bush on 05-16-2024 PT Coag (PPP) [Time] 40.6 s High 11.7-14.9 [facility] International normalized rat io (INR) calculationOrdered By: Alfa Bush on 04-15-2024 INR Coag (Bld) [Relative time] 3.2 {INR} [facility] Prothrombin Time w/INRon INR Coag (PPP) [Relative time] 3.2 {INR} Normal [facility] Comment on above: Performed By: #### L 300.3900 #### [facility] [address], [address] PT Coag (PPP) [Time] 33.2 s High 11.7-14.9 [facility] Comment on above: Performed By: #### L 300.3900 #### [facility] [address], [address] Prothrombin timeOrdered By: Alfa Bush on 04-15-2024 PT Coag (PPP) [Time] 33.2 s High 11.7-14.9 [facility] 12 Lead [place] [facility] [place]24 12 Lead EKG performed by [facility] [address] [place] [address] 12 Lead E[place] [facility] [place] 04/11/24 1051 MR#: [id number] Acct: [id number] Name: DONNA NARANJO I Rep #: [id number] : 1940 83 From: Alfa Bush NP SALES TRAINEE-C Attending Dr: Alfa Bush SALES TRAINEE-C Status: DEP AMB Ordering Dr: Alfa Bush NP SALES TRAINEE-C Date: 04/11/24 [place] [facility] [place] Sex: F C Admitted: BMS/12 Lead EKG [place] [facility] [place] ECG Report Interpretation -------Atrial Rhythm -First degree A-V block P:QRS - 1:1, Abnormal P axis, H Rate 83 Mona = 238-Intraventricula r conduction defect and left axis -possible anterior fascicular block consider ventricular hypertrophy. -Anteroseptal infarct -age undetermined. ABNORMAL Electronically signed on 04/12/2024 at 12:02 by Alex Solwood Software Version [id number] 04/12/24 1205 Date Alfa Bush NP, NP-C CC: Dr. Mireille Garnica MD Date Dictated: 04/11/24 1051 Date Transcribed: 04/11/24 105 Python Engineer: BRENT Signed Normal [facility] Cardiology Visit Reporton Cardiology Visit Report [facility] [address] [place] [address] OFFICE VISIT Date of Service: 04/11/24 MR#: [id number] Acct: [id number] Name: DONNA NARANJO I Rep #: [id number] : 1940 Provider: AB manrique Age/Sex: 83/F [place] [facility] [place] Status: Signed HPI HPI History of Present [...] NIBP Intake Visit Reasons: 2 M FU Professional Architect Required: No Accompanied by: Is patient in [...] (urinary tract infection) History of back problems [facility] current use of amiodarone RUIZ (dyspnea on exertion) Lichen sclerosus Cystocele with uterine descensus Shingles Hypersomnia, unspecified Migraines Psoriasis 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 Hyperlipidemia Atrial flutter, paroxysmal 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 Normal [facility] Prothrombin Time w/INRon INR Coag (PPP) [Relative time] 2.7 {INR} Normal [facility] Comment on above: Performed By: #### L 300.3900 #### [facility] [address] [place], [address] PT Coag (PPP) [Time] 28.9 s High 11.7-14.9 [facility] Comment on above: Performed By: #### L 300.3900 #### [facility] [address] [place], [address] Prothrombin Time w/INRon INR Coag (PPP) [Relative time] 2.0 {INR} Normal [facility] Comment on above: Performed By: #### L 300.3900 #### [facility] [address] [place], [address] PT Coag (PPP) [Time] 23.2 s High 11.7-14.9 [facility] Comment on above: Performed By: #### L 300.3900 #### [facility] [address] [place], [address] International normalized rat io (INR) calculationOrdered By: Alfa Bush on 03-14-2024 INR Coag (Bld) [Relative time] 3.1 {INR} [facility] Prothrombin Time w/INRon INR Coag (PPP) [Relative time] 3.1 {INR} Normal [facility] Comment on above: Performed By: #### L 300.3900 #### [facility] [address] [place], [address] PT Coag (PPP) [Time] 32.6 s High 11.7-14.9 [facility] Comment on above: Performed By: #### L 300.3900 #### [facility] [address] [place], [address] Prothrombin timeOrdered By: Alfa Bush on 03-14-2024 PT Coag (PPP) [Time] 32.6 s High 11.7-14.9 [facility] Prothrombin Time w/INRon INR Coag (PPP) [Relative time] 4.4 {INR} Invalid Interpretation Code [facility] Comment on above: Result Comment: CRIT ICAL VALUE CALLED TO [place] YU 03/08/24 1357 Carla Reis. RESULTS READ BACK BY . Performed By: #### L 300.3900 #### [facility] [address] [place], [address] PT Coag (PPP) [Time] 42.8 s High 11.7-14.9 [facility] Comment on above: Performed By: #### L 300.3900 #### [facility] [address] [place], [address] Prothrombin Time w/INRon INR Coag (PPP) [Relative time] 4.9 {INR} Invalid Interpretation Code [facility] Comment on above: Result Comment: CRIT ICAL VALUE CALLED TO Jessica CHAPPELL RN 03/04/24 1313 Carla Reis. RESULTS READ BACK BY . Performed By: #### L 300.3900 #### [facility] [address] [place], [address] PT Coag (PPP) [Time] 47.1 s High 11.7-14.9 [facility] Comment on above: Performed By: #### L 300.3900 #### [facility] [address] [place], [address] Prothrombin Time w/INRon INR Coag (PPP) [Relative time] 2.2 {INR} Normal [facility] Comment on above: Performed By: #### L 300.3900 #### [facility] [address] [place], [address] PT Coag (PPP) [Time] 24.9 s High 11.7-14.9 [facility] Comment on above: Performed By: #### L 300.3900 #### [facility] [address] [place], [address] Prothrombin Time w/INRon INR Coag (PPP) [Relative time] 1.7 {INR} Normal [facility] Comment on above: Performed By: #### L 300.3900 #### [facility] [address] [place], [address] PT Coag (PPP) [Time] 20.1 s High 11.7-14.9 [facility] Comment on above: Performed By: #### L 300.3900 #### [facility] [address] [place], [address] Prothrombin Time w/INRon INR Coag (PPP) [Relative time] 1.8 {INR} Normal [facility] Comment on above: Performed By: #### L 300.3900 #### [facility] [address] [place], [address] PT Coag (PPP) [Time] 21.0 s High 11.7-14.9 [facility] Comment on above: Performed By: #### L 300.3900 #### [facility] [address] [place], [address] International normalized rat io (INR) calculationOrdered By: Alfa Bush on 02-19-2024 INR Coag (Bld) [Relative time] 4.7 {INR} High [facility] Prothrombin Time w/INRon INR Coag (PPP) [Relative time] 4.7 {INR} Invalid Interpretation Code [facility] Comment on above: Performed By: #### L 300.3900 #### [facility] [address] [place], [address] PT Coag (PPP) [Time] 45.4 s High 11.7-14.9 [facility] Comment on above: Performed By: #### L 300.3900 #### [facility] [address] [place], [address] Prothrombin timeOrdered By: Alfa Bush on 02-19-2024 PT Coag (PPP) [Time] 45.4 s High 11.7-14.9 [facility] Prothrombin Time w/INRon INR Coag (PPP) [Relative time] 4.4 {INR} Invalid Interpretation Code [facility] Comment on above: Order Comment: Comme nts: STANDING ORDER: Fax to [phone] VALUE CALLED TO VIDAL JONES02/15/24 Guero Cardenas.RESULTS READ BACK BY SAME. Performed By: #### L 300.3900 #### [facility] [address] [place], [address] PT Coag (PPP) [Time] 41.5 s High 11.7-14.9 [facility] Comment on above: Order Comment: Comme nts: STANDING ORDER: Fax to [phone] VALUE CALLED TO VIDAL JONES02/15/24 Guero Cardenas.RESULTS READ BACK BY SAME. Performed By: #### L 300.3900 #### [facility] [address] [place], [address] Absolute neutrophil countOrd ered By: Avtar Ervin on 02-10-2024 Neutrophils (Bld) [#/Vol] 7.7 10*3/uL 2.0-7.7 [facility] Basic Metabolic Profile (BMP )on 02-10-2024 BUN/CRE 22.6 RATIO High 10-20 [facility] Comment on above: Performed By: #### L 100.0100, L500.2500 #### [facility] [address] [place], [address] CA,Total 9.5 mg/dL Normal 8.5-10.1 [facility] Comment on above: Performed By: #### L 100.0100, L500.2500 #### [facility] [address] [place], [address] Chloride [Moles/Vol] 110 mmol/L High 98-107 [facility] Comment on above: Performed By: #### L 100.0100, L500.2500 #### [facility] [address] [place], [address] CO2 [Moles/Vol] 23.0 mmol/L Normal 21.0-32.0 [facility] Comment on above: Performed By: #### L 100.0100, L500.2500 #### [facility] [address] [place], [address] Creatinine [Mass/Vol] 2.08 mg/dL High 0.55-1.02 [facility] Comment on above: Result Comment: The validity of the calculated GFR GFRAA in patients over 70 years has not been determined. Clinical correlation is essential. Performed By: #### L 100.0100, L500.2500 #### [facility] [address] [place], [address] ECRCL 19.00 ml/min Normal [facility] Comment on above: Performed By: #### L 100.0100, L500.2500 #### [facility] [address] [place], [address] EST GFR - AA 29 mL/min Low >60 [facility] Comment on above: Result Comment: Afri can Belgian GFR Calc Performed By: #### L 100.0100, L500.2500 #### [facility] [address] [place], [address] GAP 7 Normal 5-15 [facility] Comment on above: Performed By: #### L 100.0100, L500.2500 #### [facility] [address] [place], [address] GFR/1.73 sq M.predicted among non-blacks MDRD (S/P/Bld) [Vol rate/Area] 24 mL/min/{1.73_m2} Low >60 [facility] Comment on above: Result Comment: Non- GFR Calc Performed By: #### L 100.0100, L500.2500 #### [facility] [address] [place], [address] Glucose [Mass/Vol] 106 mg/dL Normal 74-106 [facility] Comment on above: Result Comment: Fast ing Glucose result from 100 to 125 mg/dL suggests IMPAIRED HOMEOSTASIS per A.D.A. criteria. Performed By: #### L 100.0100, L500.2500 #### [facility] [address] [place], [address] Potassium [Moles/Vol] 3.8 mmol/L Normal 3.5-5.1 [facility] Comment on above: Performed By: #### L 100.0100, L500.2500 #### [facility] [address] [place], [address] Sodium [Moles/Vol] 141 mmol/L Normal 136-145 [facility] Comment on above: Performed By: #### L 100.0100, L500.2500 #### [facility] [address] [place], [address] Urea nitrogen [Mass/Vol] 47 mg/dL High 7-18 [facility] Comment on above: Performed By: #### L 100.0100, L500.2500 #### [facility] [address] [place], [address] Basophil percentageOrdered B y: Avtar Ervin on 02-10-2024 Basophils/100 WBC (Bld) 0.4 % 0-1 [facility] Blood urea nitrogen (BUN)/cr eatinine ratioOrdered By: Avtar Ervin on 02-10-2024 Urea nitrogen/Creatinine [Mass ratio] 22.6 mg/mg High 10-20 [facility] CBC W/Diff, Automatedon 12-2 Absolute Lymph 0.69 X10 3/uL Low 0.83-4.51 [facility] Comment on above: Performed By: #### L 100.0100, L500.2500 #### [facility] [address] [place], [address] Absolute Neut 7.7 X10 3/uL Normal 2.0-7.7 [facility] Comment on above: Performed By: #### L 100.0100, L500.2500 #### [facility] [address] [place], [address] Basophils/100 WBC (Bld) 0.4 % Normal 0-1 [facility] Comment on above: Performed By: #### L 100.0100, L500.2500 #### [facility] [address] [place], [address] Eosinophils/100 WBC (Bld) 2.6 % Normal 0-5 [facility] Comment on above: Performed By: #### L 100.0100, L500.2500 #### [facility] [address] [place], [address] Erythrocyte distribution width (RBC) [Ratio] 14.6 % Normal 11.6-14.6 [facility] Comment on above: Performed By: #### L 100.0100, L500.2500 #### [facility] [address] [place], [address] Hematocrit (Bld) [Volume fraction] 33.5 % Low 37-47 [facility] Comment on above: Performed By: #### L 100.0100, L500.2500 #### [facility] [address] [place], [address] Hemoglobin (Bld) [Mass/Vol] 11.0 g/dL Low 12.0-15.0 [facility] Comment on above: Performed By: #### L 100.0100, L500.2500 #### [facility] [address] [place], [address] IG% 0.600 Normal 0.0-0.9 [facility] Comment on above: Result Comment: IG% - Immature Granulocytes (promyelocytes, myelocytes and metamyelocytes) > 1% indicates that a LEFT SHIFT is Present. Performed By: #### L 100.0100, L500.2500 #### [facility] [address] [place], [address] Lymphocytes/100 WBC (Bld) 6.9 % Low 19-41 [facility] Comment on above: Performed By: #### L 100.0100, L500.2500 #### [facility] [address] [place], [address] MCH (RBC) [Entitic mass] 34.1 pg High 27.0-32.0 [facility] Comment on above: Performed By: #### L 100.0100, L500.2500 #### [facility] [address] [place], [address] MCHC (RBC) [Mass/Vol] 32.8 g/dL Normal 32-36 [facility] Comment on above: Performed By: #### L 100.0100, L500.2500 #### [facility] [address] [place], [address] MCV (RBC) [Entitic vol] 103.7 fL High 81-99 [facility] Comment on above: Performed By: #### L 100.0100, L500.2500 #### [facility] [address] [place], [address] Monocytes/100 WBC (Bld) 12.2 % High 0-10 [facility] Comment on above: Performed By: #### L 100.0100, L500.2500 #### [facility] [address] [place], [address] Neutrophils/100 WBC (Bld) 77.3 % High 47-70 [facility] Comment on above: Performed By: #### L 100.0100, L500.2500 #### [facility] [address] [place], [address] Nucleated RBC (Bld) [#/Vol] 0 10*3/uL Normal 0-5 [facility] Comment on above: Performed By: #### L 100.0100, L500.2500 #### [facility] [address] [place], [address] Platelet mean volume (Bld) [Entitic vol] 9.7 fL Normal 6.2-12.0 [facility] Comment on above: Performed By: #### L 100.0100, L500.2500 #### [facility] [address] [place], [address] Platelets (Bld) [#/Vol] 228 10*3/uL Normal 150-450 [facility] Comment on above: Performed By: #### L 100.0100, L500.2500 #### [facility] [address] [place], [address] RBC (Bld) [#/Vol] 3.23 10*6/uL Low 4.2-5.4 [facility] Comment on above: Performed By: #### L 100.0100, L500.2500 #### [facility] [address] [place], [address] RDW SD 56.1 fl High 35.1-43.9 [facility] Comment on above: Performed By: #### L 100.0100, L500.2500 #### [facility] [address] [place], [address] WBC (Bld) [#/Vol] 10.0 10*3/uL Normal 4.4-11.0 [facility] Comment on above: Performed By: #### L 100.0100, L500.2500 #### [facility] [address] [facility] [place], [address] Carbon dioxide measurementOr dered By: Avtar Ervin on 02-10-2024 CO2 [Moles/Vol] 23.0 mmol/L 21.0-32.0 [facility] Chest PA and Lateralon 02-09 Chest PA and Lateral [facility] Imaging Services [address] [place] [address] Chest PA and Lateral MR#: [id number] Acct: [id number] Name: DONNA NARANJO I Rep #: [id number] : 1940 F 83 From: Estefani House PCP: Dr. Mireille Garnica MD Status: PRE ER Study: Chest PA and Lateral Date of Exam: 02/10/24 Exam# [id number] Ordering Dr: Avtar Ervin DO -[id number] INDICATION: cough EXAMINATION/TECHNIQ UE: X-RAY - [...] Mireille Garnica MD; Dr. 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 RUIZ (dyspnea on exertion) Lichen sclerosus Cystocele with uterine descensus Shingles Hypersomnia, unspecified Migraines Psoriasis 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 Hyperlipidemia Atrial flutter, paroxysmal 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 Home Medications ???Medication ???Instructions ???Recorded ???Last Taken ???Type aspirin 81 mg chewable tablet 81 mg PO DAILY@0800 08/12/14 11/13/20 History ascorbic acid (vitamin C) 1,000 [...] occupational status: retired current occupation: worked at [employer] sexually active: Yes Smoking Status: Never smoker Electronic Cigarette Use: not used alcohol intake: never substance use type: does not use caffeine: Yes what type of physical activity do you participate in: none seatbelt use: sometimes do you feel safe at home: Yes additional social history: - Joey Patient and retired ROS ROS ED Constitutional Constitutional ED: Reports chills and [...] Signs: 02/10/24 (more content not included)... Normal [facility] Eosinophil percentageOrdered By: Avtar Ervin on 02-10-2024 Eosinophils/100 WBC (Bld) 2.6 % 0-5 [facility] Erythrocyte distribution wid th ratioOrdered By: Avtar Ervin on 02-10-2024 Erythrocyte distribution width (RBC) [Ratio] 14.6 % 11.6-14.6 [facility] Erythrocyte distribution wid th standard deviationOrdered By: Avtar Ervin on 02-10-2024 Erythrocyte distribution width (RBC) [Entitic vol] 56.1 fL High 35.1-43.9 [facility] Estimated glomerular filtrat ion rate (GFR) AmericanOrdered By: Avtar Ervin on 02-10-2024 Estimated GFR (MDRD) Amer 29 mL/min Low >60 [facility] Comment on above: GFR Calc Estimation of creatinine emmy aranceOrdered By: Avtar Ervin on 02-10-2024 Estimated Creatinine Clearance Calc 19.00 ml/min [facility] Glomerular filtration rate ( GFR) estimationOrdered By: Avtar Ervin on 02-10-2024 Estimated GFR (MDRD) Non-Af Amer 24 mL/min Low >60 [facility] Comment on above: Non- GFR Calc Glucose measurementOrdered B y: Avtar Le on 02-10-2024 Glucose [Mass/Vol] 106 mg/dL 74-106 [facility] Comment on above: Fasting Glucose resu lt from 100 to 125 mg/dL suggests IMPAIRED HOMEOSTASIS per A.D.A. criteria. Hematocrit Auto (Bld) [Volum e fraction]Ordered By: Avtar Ervin on 02-10-2024 Hematocrit (Bld) [Volume fraction] 33.5 % Low 37-47 [facility] Hemoglobin measurementOrdere d By: Avtar Ervin on 02-10-2024 Hemoglobin (Bld) [Mass/Vol] 11.0 g/dL Low 12.0-15.0 [facility] Immature granulocytes/100 WB C Auto (Bld)Ordered By: Avtar Ervin on 02-10-2024 Immature granulocytes/100 WBC (Bld) 0.600 % 0.0-0.9 [facility] Comment on above: IG% - Immature Granu locytes (promyelocytes, myelocytes and metamyelocytes) > 1% indicates that a LEFT SHIFT is Present. Influenza virus A and B and SARS-CoV-2 (COVID-19) and Respiratory syncytial virus RNAOrdered By: Avtar Ervin on 02-10-2024 SARS-CoV-2 (COVID-19) RNA DIGNA+probe Ql (Unsp spec) [facility] Lymphocytes Auto (Unsp spec) [#/Vol]Ordered By: Avtar Ervin on 02-10-2024 Lymphocytes (Bld) [#/Vol] 0.69 10*3/uL Low 0.83-4.51 [facility] Lymphocytes/100 WBC Auto (Un sp spec)Ordered By: Avtar Ervin on 02-10-2024 Lymphocytes/100 WBC (Bld) 6.9 % Low 19-41 [facility] M100.678on 02-10-2024 M100.678 Pending SARS-CoV-2 (COVID 19) Negative INFLUENZA A Negative INFLUENZA B Negative RSV PCR Negative Normal [facility] Comment on above: Performed By: #### L 056.0841 #### [facility] [place] [address] [address] [place], [address] MCV (mean corpuscular volume ) determinationOrdered By: Avtar Ervin on 02-10-2024 MCV (RBC) [Entitic vol] 103.7 fL High 81-99 [facility] Mean corpuscular hemoglobin (MCH) determinationOrdered By: Avtar Ervin on 02-10-2024 MCH (RBC) [Entitic mass] 34.1 pg High 27.0-32.0 [facility] Mean corpuscular hemoglobin concentration (MCHC) determinationOrdered By: Avtar Ervin on 02-10-2024 MCHC (RBC) [Mass/Vol] 32.8 g/dL 32-36 [facility] Mean platelet volume determi nationOrdered By: Avtar Ervin on 02-10-2024 Platelet mean volume (Bld) [Entitic vol] 9.7 fL 6.2-12.0 [facility] Monocyte percentageOrdered B y: Avtar Ervin on 02-10-2024 Monocytes/100 WBC (Bld) 12.2 % High 0-10 [facility] Neutrophil percentageOrdered By: Avtar Ervin on 02-10-2024 Neutrophils/100 WBC (Bld) 77.3 % High 47-70 [facility] Nucleated red blood cell per centageOrdered By: Avtar Ervin on 02-10-2024 Nucleated RBC/100 WBC (Bld) [Ratio] 0 % 0-5 [facility] Platelet countOrdered By: Alan Ervin on 02-10-2024 Platelets (Bld) [#/Vol] 228 10*3/uL 150-450 [facility] Potassium measurementOrdered By: Avtar Ervin on 02-10-2024 Potassium [Moles/Vol] 3.8 mmol/L 3.5-5.1 [facility] RBC Auto (Bld) [#/Vol]Ordere d By: Avtar Ervin on 02-10-2024 RBC (Bld) [#/Vol] 3.23 10*6/uL Low 4.2-5.4 [facility] Serum anion gap measurementO rdered By: Avtar Ervin on 02-10-2024 Anion gap [Moles/Vol] 7 mmol/L 5-15 [facility] Serum or plasma calcium geoffrey urement (mass/volume)Ordered By: Avtar Ervin on 02-10-2024 Calcium [Mass/Vol] 9.5 mg/dL 8.5-10.1 [facility] Serum or plasma creatinine m easurement (mass/volume)Ordered By: Avtar Ervin on 02-10-2024 Creatinine [Mass/Vol] 2.08 mg/dL High 0.55-1.02 [facility] Comment on above: The validity of the calculated GFR & GFRAA in patients over 70 years has not been determined. Clinical correlation is essential. Serum or plasma urea nitroge n measurement (mass/volume)Ordered By: Avtar Ervin on 02-10-2024 Urea nitrogen [Mass/Vol] 47 mg/dL High 7-18 [facility] Sodium levelOrdered By: Avtar Ervin on 02-10-2024 Sodium [Moles/Vol] 141 mmol/L 136-145 [facility] White blood cell (WBC) count Ordered By: Avtar Ervin on 02-10-2024 WBC (Bld) [#/Vol] 10.0 10*3/uL 4.4-11.0 [facility] 12 [place] [facility] [place]-09-2024 12 Lead EKG performed by [facility] [address] [place] [address] 12 Lead EKG performed [place] [facility] [place] [place] 02/09/24 0834 MR#: [id number] Acct: [id number] Name: DONNA NARANJO I Rep #: [id number] : 1940 83 From: Alfa Bush SALES TRAINEE SALES TRAINEE-C Attending Dr: AB Salazar Status: DEP AMB Ordering Dr: Alfa Bush NP SALES TRAINEE-C Date: 02/09/24 [place] [facility] [place] Sex: F C Ad[place] [facility] [place] [place]12 Lead E[place] [facility] [place] [place] ECG Report Interpretation -------Atrial Fibrillation Rate 99-Nonspecific QRS widening and anterior fascicular block. -Poor R-wave progression -nonspecific -consider old anterior infarct. -Nonspecific ST depression + Nonspecific T-abnormality -Nondiagnostic. ABNORMAL compared to 08/21/2023 ECG no significant changesElectronical ly signed on 02/26/2024 at 11:[address] Douglas Oglesby Software Version 8610 02/26/24 1125 Date Alfa BERGER CC: Dr. Mireille Garnica MD Date Dictated: 02/09/24833 Date Transcribed: 02/09/24833 Python Engineer: BRENT Signed Normal [facility] Cardiology Visit Reporton Cardiology Visit Report [facility] [address] [place] [address] OFFICE VISIT Date of Service: 02/09/24 MR#: [id number] Acct: [id number] Name: DONNA NARANJO I Rep #: [id number] : 1940 Provider: AB manrique Age/Sex: 83/F [place] [facility] [place] Status: Signed HPI HPI History of Present [...] air Intake Visit Reasons: 4 W FU Professional Architect Required: No Accompanied by: Is patient in [...] (urinary tract infection) History of back problems [facility] current use of amiodarone RUIZ (dyspnea on exertion) Lichen sclerosus Cystocele with uterine descensus Shingles Hypersomnia, unspecified Migraines Psoriasis 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 Hyperlipidemia Atrial flutter, paroxysmal 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 Normal [facility] Prothrombin Time w/INRon INR Coag (PPP) [Relative time] 3.8 {INR} Normal [facility] Comment on above: Performed By: #### L 773.5226 #### [facility] [address] [place], [place], [address] PT Coag (PPP) [Time] 36.8 s High 11.7-14.9 [facility] Comment on above: Performed By: #### L 300.3900 #### [facility] [address] [place], [address] Prothrombin Time w/INRon INR Coag (PPP) [Relative time] 2.3 {INR} Normal [facility] Comment on above: Performed By: #### L 300.3900 #### [facility] [address] [place], [address] PT Coag (PPP) [Time] 25.4 s High 11.7-14.9 [facility] Comment on above: Performed By: #### L 300.3900 #### [facility] [address] [place], [address] Prothrombin Time w/INRon INR Coag (PPP) [Relative time] 2.7 {INR} Normal [facility] Comment on above: Performed By: #### L 300.3900 #### [facility] [address] [place], [address] PT Coag (PPP) [Time] 28.4 s High 11.7-14.9 [facility] Comment on above: Performed By: #### L 300.3900 #### [facility] [address] [place], [address] Cardiology Visit Reporton Cardiology Visit Report [facility] [address] [place], [place] [address] OFFICE VISIT Date of Service: 01/12/24 MR#: [id number] Acct: [id number] Name: DONNA NARANJO I Rep #: [id number] : 1940 Provider: AB manrique Age/Sex: 83/F [place] [facility] [place] Status: Signed HPI HPI History of Present [...] Reasons: F/U ABN ACHO - OK PER R Professional Architect Required: No Is patient in pain?: No [...] mg (1.5 x 25 mg) PO .COMPLEX 08/06/24 11/22/24 Rx #270 tabs enoxaparin 60 mg/0.6 mL [...] (Updated 12/28/23 @ 13:16 by Alfa Bush SALES TRAINEE, SALES TRAINEE-C) Fatigue Bradycardia Sacroiliitis Dyspnea on exertion Low back pain Lightheadedness Osteopenia after menopause Right knee DJD Chondrocalcinosis of knee Lumbar degenerative disc disease 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 Greater trochanteric bursitis Elevated TSH History of skin cancer Hx of osteopenia Hx of gallstones Hx of cataract Hx: UTI (urinary tract infection) 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 RUIZ (dyspnea on exertion) Lichen sclerosus Cystocele with uterine descensus Shingles Hypersomnia, unspecified Migraines Psoriasis 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 Hyperlipidemia Atrial flutter, paroxysmal 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 Normal [facility] Echo Completeon 01-12-2024 Echo Complete [facility] [place] [address] Echo Complete 01/12/24 0906 MR#: [id number] Acct: [id number] Name: DONNA NARANJO I Rep #: [id number] : 1940 83 From: Colleen Alegria MD Attending Dr: Alfa Bush, SALES TRAINEE-C Status: REG CLI Ordering Dr: Alfa Bush SALES TRAINEE SALES TRAINEE-C Date: 01/12/24 Location: [facility] Sex: F C Admitted: Reason For Study: [...] 01/12/24 1531 Date Colleen Alegria MD CC: SALES TRAINEE-C Alfa Bush; Dr. Mireille Garnica MD Date Dictated: 01/12/24905 Date Transcribed: 01/12/24 1531 Python Engineer: Signed [facility] BNP,B-Type NATRIURETIC PEPTI Lauri 12-28-2023 Natriuretic peptide B (Bld) [Mass/Vol] 620.7 pg/mL High 0-100 [facility] Comment on above: Performed By: #### L 300.3900 #### [facility] [address] [place], [address] CBC W/Diff, Automatedon 11 Absolute Lymph 1.05 X10 3/uL Normal 0.83-4.51 [facility] Comment on above: Performed By: #### L 300.3900 #### [facility] [address] [place], [address] Absolute Neut 4.8 X10 3/uL Normal 2.0-7.7 [facility] Comment on above: Performed By: #### L 300.3900 #### [facility] [address] [place], [address] Basophils/100 WBC (Bld) 1.0 % Normal 0-1 [facility] Comment on above: Performed By: #### L 300.3900 #### [facility] [address] [place], [address] Eosinophils/100 WBC (Bld) 4.5 % Normal 0-5 [facility] Comment on above: Performed By: #### L 300.3900 #### [facility] [address] [place], [address] Erythrocyte distribution width (RBC) [Ratio] 15.3 % High 11.6-14.6 [facility] Comment on above: Performed By: #### L 300.3900 #### [facility] [address] [place], [address] Hematocrit (Bld) [Volume fraction] 35.5 % Low 37-47 [facility] Comment on above: Performed By: #### L 300.3900 #### [facility] [address] [place], [address] Hemoglobin (Bld) [Mass/Vol] 11.3 g/dL Low 12.0-15.0 [facility] Comment on above: Performed By: #### L 300.3900 #### [facility] [address], [address] IG% 0.300 Normal 0.0-0.9 [facility] Comment on above: Result Comment: IG% - Immature Granulocytes (promyelocytes, myelocytes and metamyelocytes) > 1% indicates that a LEFT SHIFT is Present. Performed By: #### L 300.3900 #### [facility] [address], [address] Lymphocytes/100 WBC (Bld) 14.7 % Low 19-41 [facility] Comment on above: Performed By: #### L 300.3900 #### [facility] [address] [place], [address] MCH (RBC) [Entitic mass] 34.0 pg High 27.0-32.0 [facility] Comment on above: Performed By: #### L 300.3900 #### [facility] [facility] [place], [address] MCHC (RBC) [Mass/Vol] 31.8 g/dL Low 32-36 [facility] Comment on above: Performed By: #### L 300.3900 #### [facility] [address] [place], [address] MCV (RBC) [Entitic vol] 106.9 fL High 81-99 [facility] Comment on above: Performed By: #### L 300.3900 #### [facility] [address] [place], [address] Monocytes/100 WBC (Bld) 13.1 % High 0-10 [facility] Comment on above: Performed By: #### L 300.3900 #### [facility] [address] [place], [address] Neutrophils/100 WBC (Bld) 66.4 % Normal 47-70 [facility] Comment on above: Performed By: #### L 300.3900 #### [facility] [address] [place], [address] Nucleated RBC (Bld) [#/Vol] 0 10*3/uL Normal 0-5 [facility] Comment on above: Performed By: #### L 300.3900 #### [facility] [address] [place], [address] Platelet mean volume (Bld) [Entitic vol] 9.5 fL Normal 6.2-12.0 [facility] Comment on above: Performed By: #### L 300.3900 #### [facility] [address] [place], [address] Platelets (Bld) [#/Vol] 239 10*3/uL Normal 150-450 [facility] Comment on above: Performed By: #### L 300.3900 #### [facility] [place], [address] RBC (Bld) [#/Vol] 3.32 10*6/uL Low 4.2-5.4 [facility] Comment on above: Performed By: #### L 300.3900 #### [facility] [address] [place], [address] RDW SD 60.4 fl High 35.1-43.9 [facility] Comment on above: Performed By: #### L 300.3900 #### [facility] [address] [place], [address] WBC (Bld) [#/Vol] 7.2 10*3/uL Normal 4.4-11.0 [facility] Comment on above: Performed By: #### L 300.3900 #### [facility] [address] [place], [address] Cardiology Visit Reporton Cardiology Visit Report [facility] [address] [place] [address] OFFICE VISIT Date of Service: 12/28/23 MR#: [id number] Acct: [id number] Name: DONNA NARANJO I Rep #: [id number] : 1940 Provider: AB manrique Age/Sex: 83/F [place] [facility] [place] Status: Signed HPI HPI History of Present [...] NIBP Intake Visit Reasons: 3 m fu Professional Architect Required: No Accompanied by: Is patient in pain?: No Allergies latex Allergy (Verified 12/28/23 11:40) Itching Penicillins Allergy (Verified 12/28/23 11:40) Rash Medications ???Medication ???Instructions ???Recorded ???Confirmed ???Type aspirin 81 mg chewable tablet 81 mg PO DAILY@0800 08/12/14 12/28/23 History ascorbic acid (vitamin C) 1,000 mg [...] (Updated 12/28/23 @ 13:16 by Alfa Bush SALES TRAINEE, SALES TRAINEE-C) Fatigue Bradycardia Sacroiliitis Dyspnea on exertion Low back pain Lightheadedness Osteopenia after menopause Right knee DJD Chondrocalcinosis of knee Lumbar degenerative disc disease 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 Greater trochanteric bursitis Elevated TSH History of skin cancer Hx of osteopenia Hx of gallstones Hx of cataract Hx: UTI (urinary tract infection) History of back problems [facility] current use of amiodarone RUIZ (dyspnea on exertion) Lichen sclerosus Cystocele with uterine descensus Shingles Hypersomnia, unspecified Migraines Psoriasis 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 Hyperlipidemia Atrial flutter, paroxysmal 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 [facility] (current) 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 Surgical History History [...] occupational status: retired current occupation: worked at [employer] sexually active: Yes Smoking Status: Never smoker Electronic Cigarette Use: not used alcohol intake: never substance use type: does not use caffeine: Yes what type of physical activity do you participate in: none seatbelt use: sometimes do you feel safe at home: Yes additional social history: - Joey Patient and retired ROS Const Const: Positive f (more content not included)... Normal [facility] Comprehensive Metabolic Prof ilon 12-28-2023 Albumin [Mass/Vol] 3.7 g/dL Normal 3.2-5.0 [facility] Comment on above: Performed By: #### L 300.3900 #### [facility] [address] [place], [address] Albumin/Globulin [Mass ratio] 1.2 {ratio} Normal 0.9-2.4 [facility] Comment on above: Performed By: #### L 300.3900 #### [facility] [address] [place], [address] ALK P 85 U/L Normal 45-117 [facility] Comment on above: Performed By: #### L 300.3900 #### [facility] [address] [place], [address] ALT [Catalytic activity/Vol] 23 U/L Normal 13-56 [facility] Comment on above: Performed By: #### L 300.3900 #### [facility] [address] [place], [address] AST [Catalytic activity/Vol] 27 U/L Normal 15-37 [facility] Comment on above: Performed By: #### L 300.3900 #### [facility] [address] [place], [address] Bilirubin [Mass/Vol] 0.80 mg/dL Normal 0.20-1.00 [facility] Comment on above: Result Comment: For patients on eltrombopag therapy, use of Dimension [place] TBIL is not recommended. Performed By: #### L 300.3900 #### [facility] [address] [place], [address] BUN/CRE 20.3 RATIO High 10-20 [facility] Comment on above: Performed By: #### L 300.3900 #### [facility] [address] [place], [address] CA,Total 9.3 mg/dL Normal 8.5-10.1 [facility] Comment on above: Performed By: #### L 300.3900 #### [facility] [address] [place], [address] Chloride [Moles/Vol] 111 mmol/L High 98-107 [facility] Comment on above: Performed By: #### L 300.3900 #### [facility] [address] [place], [address] CO2 [Moles/Vol] 26.0 mmol/L Normal 21.0-32.0 [facility] Comment on above: Performed By: #### L 300.3900 #### [facility] [address] [place], [address] Creatinine [Mass/Vol] 1.82 mg/dL High 0.55-1.02 [facility] Comment on above: Result Comment: The validity of the calculated GFR GFRAA in patients over 70 years has not been determined. Clinical correlation is essential. Performed By: #### L 300.3900 #### [facility] [address] [place], [address] EST GFR - AA 34 mL/min Low >60 [facility] Comment on above: Result Comment: Afri can Belgian GFR Calc Performed By: #### L 300.3900 #### [facility] [address] [place], [address] GAP 4 Low 5-15 [facility] Comment on above: Performed By: #### L 300.3900 #### [facility] [address] [place], [address] GFR/1.73 sq M.predicted among non-blacks MDRD (S/P/Bld) [Vol rate/Area] 28 mL/min/{1.73_m2} Low >60 [facility] Comment on above: Result Comment: Non- GFR Calc Performed By: #### L 300.3900 #### [facility] [address] [place], [address] Globulin (S) [Mass/Vol] 3.2 g/dL Normal 2.2-4.2 [facility] Comment on above: Performed By: #### L 300.3900 #### [facility] [address] [place], [address] Glucose [Mass/Vol] 87 mg/dL Normal 74-106 [facility] Comment on above: Performed By: #### L 300.3900 #### [facility] [address] [place], [address] Potassium [Moles/Vol] 4.6 mmol/L Normal 3.5-5.1 [facility] Comment on above: Performed By: #### L 300.3900 #### [facility] [address] [place], [address] Sodium [Moles/Vol] 141 mmol/L Normal 136-145 [facility] Comment on above: Performed By: #### L 300.3900 #### [facility] [address] [place], [address] T PROT 6.9 g/dL Normal 6.4-8.2 [facility] Comment on above: Performed By: #### L 300.3900 #### [facility] [address] [place], [address] Urea nitrogen [Mass/Vol] 37 mg/dL High 7-18 [facility] Comment on above: Performed By: #### L 300.3900 #### [facility] [address] [place], [address] Magnesiumon 12-28-2023 Magnesium [Mass/Vol] 2.8 mg/dL High 1.6-2.6 [facility] Comment on above: Performed By: #### L 300.3900 #### [facility] [address] [place], [address] T4 Free Directon 12-28-2023 T4 FREE DIRECT 1.01 ng/dL Normal 0.76-1.46 [facility] Comment on above: Performed By: #### L 100.0100, L500.2500 #### [facility] [address] [place], [address] Thyroid Stim Hormone (TSH)on 12-28-2023 TSH 2.570 uIU/mL Normal 0.358-3.740 [facility] Comment on above: Performed By: #### L 100.0100, L500.2500 #### [facility] [address] [place], [address] Prothrombin Time w/INRon INR Coag (PPP) [Relative time] 3.1 {INR} Normal [facility] Comment on above: Performed By: #### L 100.0100, L500.2500 #### [facility] [address] [place], [address] PT Coag (PPP) [Time] 31.9 s High 11.7-14.9 [facility] Comment on above: Performed By: #### L 100.0100, L500.2500 #### [facility] [address] [place], [address] SCRN MAMM (CAD)W/EDDA BILATo n 12-20-2023 SCRN MAMM (CAD)W/EDDA BILAT [facility] Imaging Services [address] [place], [place] [address] SCRN MAMM (CAD)W/EDDA BILAT MR#: [id number] Acct: [id number] Name: DONNA NARANJO I Rep #: [id number] : 1940 F 83 From: Walter henao MD PCP: Becca Azevedo DO Status: REG CLI Study: SCRN MAMM (CAD)W/EDDA BILAT Date of Exam: 11/22 Exam# [id number] Ordering Dr: Beth Condon SALES TRAINEE SALES TRAINEE -C [id number] MAMMOGRAPHY - BILATERAL SCREENING REASON FOR [...] delay biopsy of a clinically suspicious abnormality. [id number] Electronically Signed: Walter Vickers MD at 14:01 EDT Reading Location ID and State: [facility] / [place] , Service support , CC: AB Condon; Becca Azevedo DO Python Engineer: Signed Normal [facility] Prothrombin Time w/INRon INR Coag (PPP) [Relative time] 2.5 {INR} Normal [facility] Comment on above: Performed By: #### L 918.3903 #### [facility] [address] [place], [place], [id number] PT Coag (PPP) [Time] 26.8 s High 11.7-14.9 [facility] Comment on above: Performed By: #### L 349.3900 #### [facility] [address] [place], [place], [id number] (667) Prothrombin Time w/INRon INR Coag (PPP) [Relative time] 2.7 {INR} Normal [facility] Comment on above: Performed By: #### L [id number] #### [facility] [address] [place], [address] PT Coag (PPP) [Time] 28.9 s High 11.7-14.9 [facility] Comment on above: Performed By: #### L 300.3900 #### [facility] [address] [place], [address] Prothrombin Time w/INRon INR Coag (PPP) [Relative time] 2.4 {INR} Normal [facility] Comment on above: Performed By: #### L 300.3900 #### [facility] [address] [place], [address] PT Coag (PPP) [Time] 25.9 s High 11.7-14.9 [facility] Comment on above: Performed By: #### L 300.3900 #### [facility] [address] [place], [address] Prothrombin Time w/INRon INR Coag (PPP) [Relative time] 2.3 {INR} Normal [facility] Comment on above: Performed By: #### L 100.0100, L500.2500 #### [facility] [address] [place], [address] PT Coag (PPP) [Time] 25.0 s High 11.7-14.9 [facility] Comment on above: Performed By: #### L 100.0100, L500.2500 #### [facility] [address] [place], [address] Prothrombin Time w/INRon INR Coag (PPP) [Relative time] 2.2 {INR} Normal [facility] Comment on above: Performed By: #### L 300.3900 #### [facility] [address] [place], [address] PT Coag (PPP) [Time] 24.0 s High 11.7-14.9 [facility] Comment on above: Performed By: #### L 300.3900 #### [facility] [address] [place], [address] Prothrombin Time w/INRon INR Coag (PPP) [Relative time] 1.8 {INR} Normal [facility] Comment on above: Performed By: #### L 100.0100, L500.2500 #### [facility] [address] [place], [address] PT Coag (PPP) [Time] 20.3 s High 11.7-14.9 [facility] Comment on above: Performed By: #### L 100.0100, L500.2500 #### [facility] [address] [place], [address] Laboratory - CoagulationOrde red By: Alfa Bush on 06-14-2023 INR Coag (Bld) [Relative time] 2.3 {INR} [facility] PT Coag (PPP) [Time] 24.8 s 11.7-14.9 [facility] - CoagulationOrde red By: Alfa Bush on 05-02-2023 INR Coag (Bld) [Relative time] 2.5 {INR} [facility] PT Coag (PPP) [Time] 26.6 s 11.7-14.9 [facility] - CoagulationOrde red By: Chante Cao on 04-05-2023 INR Coag (Bld) [Relative time] 2.6 {INR} [facility] PT Coag (PPP) [Time] 28.2 s 11.7-14.9 [facility] International normalized rat io (INR) calculationOrdered By: Alfa Bush on 03-07-2023 INR Coag (PPP) [Relative time] 2.6 {INR} [facility] - CoagulationOrde red By: Alfa Bush on 03-07-2023 PT Coag (PPP) [Time] 27.7 s 11.7-14.9 [facility] - CoagulationOrde red By: Alfa Bush on 02-07-2023 PT Coag (PPP) [Time] 29.1 s 11.7-14.9 [facility] Whole blood international no rmalized ratio (INR)Ordered By: Alfa Bush on 02-07-2023 INR Coag (Bld) [Relative time] 2.7 {INR} [facility] INR in Blood by Coagulation assayOrdered By: Kylah Santizo on 01-24-2023 INR Coag (Bld) [Relative time] 2.7 {INR} [facility] - Chemistry and C hemistry - challengeOrdered By: Kylah Santizo on 01-24-2023 ALT [Catalytic activity/Vol] 22 U/L 13-56 [facility] - CoagulationOrde red By: Kylah Santizo on 01-24-2023 PT Coag (PPP) [Time] 29.3 s 11.7-14.9 [facility] No Panel InformationOrdered By: Kylah Santizo on 01-24-2023 Thyroid Stimulating Hormone (TSH) 4.81 uIU/mL 0.358-3.74 [facility] Thin prep Papanicolaou smear with manual screeningOrdered By: Kylah Santizo on 01-24-2023 Thin prep Papanicolaou smear with manual screening 25 U/L 15-37 [facility] Basophil percentageOrdered B y: Kylah Santizo on 01-17-2023 Chloride [Moles/Vol] 109 mmol/L 98-107 [facility] Glucose [Mass/Vol] 95 mg/dL 74-106 [facility] Potassium [Moles/Vol] 3.6 mmol/L 3.5-5.1 [facility] Sodium [Moles/Vol] 140 mmol/L 136-145 [facility] INR in Blood by Coagulation assayOrdered By: Alfa Bush on 01-17-2023 INR Coag (Bld) [Relative time] 2.2 {INR} [facility] - Chemistry and C hemistry - challengeOrdered By: Kylah Santizo on 01-17-2023 CO2 [Moles/Vol] 28.0 mmol/L 21.0-32.0 [facility] Urea nitrogen/Creatinine [Mass ratio] 20.9 mg/mg 10-20 [facility] - CoagulationOrde red By: Alfa Bush on 01-17-2023 PT Coag (PPP) [Time] 24.7 s 11.7-14.9 [facility] No Panel InformationOrdered By: Kylah Santizo on 01-17-2023 Estimated GFR (MDRD) Amer 32 mL/min >60 [facility] Comment on above: GFR Calc Estimated GFR (MDRD) Non-Af Amer 26 mL/min >60 [facility] Comment on above: Non- GFR Calc Serum or plasma calcium geoffrey urement (mass/volume)Ordered By: Kylah Santizo on 01-17-2023 Calcium [Mass/Vol] 9.3 mg/dL 8.5-10.1 [facility] Serum or plasma creatinine m easurement (mass/volume)Ordered By: Kylah Santizo on 01-17-2023 Creatinine [Mass/Vol] 1.96 mg/dL 0.55-1.02 [facility] Comment on above: The validity of the calculated GFR & GFRAA in patients over 70 years has not been determined. Clinical correlation is essential. Serum or plasma urea nitroge n measurement (mass/volume)Ordered By: Kylah Santizo on 01-17-2023 Urea nitrogen [Mass/Vol] 41 mg/dL -18 [facility] Thin prep Papanicolaou smear with manual screeningOrdered By: Kylah Santizo on 01-17-2023 Thin prep Papanicolaou smear with manual screening 3 5-15 [facility] INR in Blood by Coagulation assayOrdered By: Alfa Bush on 12-20-2022 INR Coag (Bld) [Relative time] 2.4 {INR} [facility] - CoagulationOrde red By: Alfa Bush on 12-20-2022 PT Coag (PPP) [Time] 26.7 s 11.7-14.9 [facility] INR in Blood by Coagulation assayOrdered By: Alfa Bush on 12-06-2022 INR Coag (Bld) [Relative time] 2.4 {INR} [facility] - CoagulationOrde red By: Alfa Bush on 12-06-2022 PT Coag (PPP) [Time] 26.0 s 11.7-14.9 [facility] INR in Blood by Coagulation assayOrdered By: Alfa Bush on 10-25-2022 INR Coag (Bld) [Relative time] 2.9 {INR} [facility] - CoagulationOrde red By: Alfa Bush on 10-25-2022 PT Coag (PPP) [Time] 31.0 s 11.7-14.9 [facility] INR in Blood by Coagulation assayOrdered By: Alfa Bush on 09-27-2022 INR Coag (Bld) [Relative time] 2.9 {INR} [facility] - CoagulationOrde red By: Alfa Bush on 09-27-2022 PT Coag (PPP) [Time] 30.5 s 11.7-14.9 [facility] INR in Blood by Coagulation assayOrdered By: Alfa Bush on 08-30-2022 INR Coag (Bld) [Relative time] 3.4 {INR} [facility] - CoagulationOrde red By: Alfa Bush on 08-30-2022 PT Coag (PPP) [Time] 34.9 s 11.7-14.9 [facility] INR in Blood by Coagulation assayOrdered By: Alfa Bush on 08-09-2022 INR Coag (Bld) [Relative time] 2.6 {INR} [facility] - CoagulationOrde red By: Alfa Bush on 08-09-2022 PT Coag (PPP) [Time] 28.2 s 11.7-14.9 [facility] - Chemistry and C hemistry - challengeOrdered By: Alfa Bush on 07-29-2022 Free T4 [Mass/Vol] 1.32 ng/dL 0.76-1.46 [facility] No Panel Informationon 07-29 INR International Normalized Ratio 6.5 [facility] INR in Blood by Coagulation assayOrdered By: Dr. Martines on 07-01-2022 INR Coag (Bld) [Relative time] 3.2 {INR} [facility] - CoagulationOrde red By: Dr. Martines on 07-01-2022 PT Coag (PPP) [Time] 33.2 s 11.7-14.9 [facility] INR in Blood by Coagulation assayOrdered By: Dr. Martines on 06-03-2022 INR Coag (Bld) [Relative time] 2.7 {INR} [facility] - CoagulationOrde red By: Dr. Martines on 06-03-2022 PT Coag (PPP) [Time] 28.5 s 11.7-14.9 [facility] INR in Blood by Coagulation assayOrdered By: Dr. Martines on 05-06-2022 INR Coag (Bld) [Relative time] 3.0 {INR} [facility] - CoagulationOrde red By: Dr. Martines on 05-06-2022 PT Coag (PPP) [Time] 31.0 s 11.7-14.9 [facility] INR in Blood by Coagulation assayOrdered By: Dr. Martines on 04-14-2022 INR Coag (Bld) [Relative time] 2.8 {INR} [facility] - CoagulationOrde red By: Dr. Martines on 04-14-2022 PT Coag (PPP) [Time] 29.0 s 11.7-14.9 [facility] INR in Blood by Coagulation assayOrdered By: Dr. Martines on 04-05-2022 INR Coag (Bld) [Relative time] 2.3 {INR} [facility] - CoagulationOrde red By: Dr. Martines on 04-05-2022 PT Coag (PPP) [Time] 25.3 s 11.7-14.9 [facility] INR in Blood by Coagulation assayOrdered By: Dr. Martines on 03-23-2022 INR Coag (Bld) [Relative time] 3.0 {INR} [facility] - CoagulationOrde red By: Dr. Martines on 03-23-2022 PT Coag (PPP) [Time] 30.5 s 11.7-14.9 [facility] Basophil percentageOrdered B y: Alfa Bush on 03-16-2022 Chloride [Moles/Vol] 106 mmol/L 98-107 [facility] Glucose [Mass/Vol] 91 mg/dL 74-106 [facility] Potassium [Moles/Vol] 4.2 mmol/L 3.5-5.1 [facility] Sodium [Moles/Vol] 139 mmol/L 136-145 [facility] - Chemistry and C hemistry - challengeOrdered By: Alfa Bush on 03-16-2022 CO2 [Moles/Vol] 24.0 mmol/L 21.0-32.0 [facility] Natriuretic peptide B (Bld) [Mass/Vol] 161.6 pg/mL 0-100 [facility] Urea nitrogen/Creatinine [Mass ratio] 21.0 mg/mg 10-20 [facility] No Panel InformationOrdered By: Alfa Bush on 03-16-2022 Estimated GFR (MDRD) Amer 35 mL/min >60 [facility] Comment on above: GFR Calc Estimated GFR (MDRD) Non-Af Amer 29 mL/min >60 [facility] Comment on above: Non- GFR Calc Serum or plasma calcium geoffrey urement (mass/volume)Ordered By: Alfa Bush on 03-16-2022 Calcium [Mass/Vol] 10.0 mg/dL 8.5-10.1 [facility] Serum or plasma creatinine m easurement (mass/volume)Ordered By: Alfa Bush on 03-16-2022 Creatinine [Mass/Vol] 1.81 mg/dL 0.55-1.02 [facility] Comment on above: The validity of the calculated GFR & GFRAA in patients over 70 years has not been determined. Clinical correlation is essential. Serum or plasma urea nitroge n measurement (mass/volume)Ordered By: Alfa Bush on 03-16-2022 Urea nitrogen [Mass/Vol] 38 mg/dL 7-18 [facility] Thin prep Papanicolaou smear with manual screeningOrdered By: Alfa Bush on 03-16-2022 Thin prep Papanicolaou smear with manual screening 9 5-15 [facility] INR in Blood by Coagulation assayOrdered By: Dr. Martines on 03-08-2022 INR Coag (Bld) [Relative time] 2.4 {INR} [facility] - CoagulationOrde red By: Dr. Martines on 03-08-2022 PT Coag (PPP) [Time] 26.0 s 11.7-14.9 [facility] Iron measurement (mass/mass) Ordered By: Dr. Jackson on 02-02-2022 Iron (Unsp spec) [Mass/Mass] 63 ug/dL 50-170 [facility] - Chemistry and C hemistry - challengeOrdered By: Dr. Jackson on 02-02-2022 Cobalamin (Vitamin B12) [Mass/Vol] 388 pg/mL 211-911 [facility] Magnesium [Mass/Vol] 2.6 mg/dL 1.6-2.6 [facility] T4 [Mass/Vol] 12.1 ug/dL 4.8-13.9 [facility] No Panel InformationOrdered By: Dr. Jackson on 02-02-2022 Free Triiodothyronine (T3) pg/dL 1.9 pg/mL 2.18-3.98 [facility] Homocysteine 19.2 umol/L 3.2-10.7 [facility] Total Iron Binding Capacity 339 ug/dL 250-450 [facility] Vitamin D 25-Hydroxy 56.4 ng/mL [facility] Comment on above: Vitamin D 25(OH) Sta tus Range Deficiency <20 ng/mL (50nmol/L) Insufficiency 20 - 30 ng/mL (50 - 75 nmol/L) Sufficiency 30 - 100 ng/mL (75 - 250 nmol/L) Toxicity >100 ng/mL (>250 nmol/L) Serum or plasma ferritin lee surement (mass/volume)Ordered By: Dr. Jackson on 02-02-2022 Ferritin [Mass/Vol] 96 ng/mL 8-252 [facility] Serum or plasma folate measu rement (mass/volume)Ordered By: Dr. Jackson on 02-02-2022 Folate [Mass/Vol] 8.30 ng/mL 3.1-55.4 [facility] Serum or plasma iron saturat ion measurement (mass fraction)Ordered By: Dr. Jackson on 02-02-2022 Iron saturation [Mass fraction] 18.6 % 15.0-55.0 [facility] Absolute lymphocyte countOrd ered By: Alfa Bush on 01-31-2022 Lymphocytes Auto (Unsp spec) [#/Vol] 1.09 10*3/uL 0.83-4.51 [facility] Basophil percentageOrdered B y: Alfa Bush on 01-31-2022 Basophils/100 WBC (Bld) 1.3 % 0-1 [facility] Bilirubin [Mass/Vol] 0.70 mg/dL 0.20-1.00 [facility] Comment on above: For patients on eltr ombopag therapy, use of Dimension [place] TBIL is not recommended. Chloride [Moles/Vol] 111 mmol/L 98-107 [facility] Cholesterol [Mass/Vol] 190 mg/dL <200 [facility] Comment on above: <200 mg/dL Desirable 200-240 mg/dL Borderline >240 mg/dL High Risk Eosinophils/100 WBC (Bld) 5.8 % 0-5 [facility] Glucose [Mass/Vol] 92 mg/dL 74-106 [facility] Neutrophils (Bld) [#/Vol] 4.2 10*3/uL 2.0-7.7 [facility] Neutrophils/100 WBC (Bld) 62.7 % 47-70 [facility] Potassium [Moles/Vol] 4.3 mmol/L 3.5-5.1 [facility] Protein [Mass/Vol] 6.8 g/dL 6.4-8.2 [facility] Sodium [Moles/Vol] 141 mmol/L 136-145 [facility] Triglyceride [Mass/Vol] 111 mg/dL <199 [facility] Comment on above: The drugs N-Acetylcy steine and Metamizole may falsely depress this assay.Serum Triglycerides Reference Interval Normal <150 mg/dL Borderline high 150 - 199 mg/dL High 200 - 499 mg/dL Very High > or = 500 mg/dL WBC (Bld) [#/Vol] 6.7 10*3/uL 4.4-11.0 [facility] Blood erythrocytes count (nu mber/volume)Ordered By: Alfa Bush on 01-31-2022 RBC (Bld) [#/Vol] 3.36 10*6/uL 4.2-5.4 [facility] Blood hemoglobin measurement (mass/volume)Ordered By: Alfa Bush on 01-31-2022 Hemoglobin (Bld) [Mass/Vol] 11.1 g/dL 12.0-15.0 [facility] Blood lymphocytes/100 leukoc ytesOrdered By: Alfa Bush on 01-31-2022 Lymphocytes/100 WBC (Bld) 16.2 % 19-41 [facility] Blood monocytes/100 leukocyt esOrdered By: Alfa Bush on 01-31-2022 Monocytes/100 WBC (Bld) 13.6 % 0-10 [facility] Blood platelet mean volumeOr dered By: Alfa Bush on 01-31-2022 Platelet mean volume (Bld) [Entitic vol] 9.6 fL 6.2-12.0 [facility] Determination of erythrocyte mean corpuscular volume (MCV)Ordered By: Alfa Bush on 01-31-2022 MCV (RBC) [Entitic vol] 104.2 fL 81-99 [facility] Direct bilirubinOrdered By: Alfa Bush on 01-31-2022 Bilirubin.direct [Mass/Vol] 0.21 mg/dL 0.00-0.30 [facility] Hematocrit Auto (Bld) [Volum e fraction]Ordered By: Alfa Bush on 01-31-2022 Hematocrit (Bld) [Volume fraction] 35.0 % 37-47 [facility] INR in Blood by Coagulation assayOrdered By: Alfa Bush on 01-31-2022 INR Coag (Bld) [Relative time] 2.4 {INR} [facility] - Chemistry and C hemistry - challengeOrdered By: Alfa Bush on 01-31-2022 ALP [Catalytic activity/Vol] 88 U/L 45-117 [facility] ALT [Catalytic activity/Vol] 30 U/L 13-56 [facility] CO2 [Moles/Vol] 27.0 mmol/L 21.0-32.0 [facility] Globulin (S) [Mass/Vol] 3.3 g/dL 2.2-4.2 [facility] Urea nitrogen/Creatinine [Mass ratio] 19.4 mg/mg 10-20 [facility] - CoagulationOrde red By: Alfa Bush on 01-31-2022 PT Coag (PPP) [Time] 25.8 s 11.7-14.9 [facility] - Hematology and Cell countsOrdered By: Alfa Bush on 01-31-2022 Erythrocyte distribution width (RBC) [Entitic vol] 60.8 fL 35.1-43.9 [facility] Erythrocyte distribution width (RBC) [Ratio] 15.8 % 11.6-14.6 [facility] Immature granulocytes/100 WBC (Bld) 0.400 % 0.0-0.9 [facility] Comment on above: IG% - Immature Granu locytes (promyelocytes, myelocytes and metamyelocytes) > 1% indicates that a LEFT SHIFT is Present. MCH (RBC) [Entitic mass] 33.0 pg 27.0-32.0 [facility] Nucleated RBC/100 WBC (Bld) [Ratio] 0 % 0-5 [facility] MCHC Auto (RBC) [Mass/Vol]Or dered By: Alfa Bush on 01-31-2022 MCHC (RBC) [Mass/Vol] 31.7 g/dL 32-36 [facility] No Panel InformationOrdered By: Alfa Bush on 01-31-2022 Estimated GFR (MDRD) Amer 36 mL/min >60 [facility] Comment on above: GFR Calc Estimated GFR (MDRD) Non-Af Amer 30 mL/min >60 [facility] Comment on above: Non- GFR Calc Thyroid Stimulating Hormone (TSH) 4.79 uIU/mL 0.358-3.74 [facility] Platelets bldOrdered By: Tatiana Bush on 01-31-2022 Platelets (Bld) [#/Vol] 258 10*3/uL 150-450 [facility] Serum or plasma albumin geoffrey urement (mass/volume)Ordered By: Alfa Bush on 01-31-2022 Albumin [Mass/Vol] 3.5 g/dL 3.2-5.0 [facility] Serum or plasma calcium geoffrey urement (mass/volume)Ordered By: Alfa Bush on 01-31-2022 Calcium [Mass/Vol] 9.4 mg/dL 8.5-10.1 [facility] Serum or plasma cholesterol in HDL measurement (mass/volume)Ordered By: Alfa Bush on 01-31-2022 Cholesterol in HDL [Mass/Vol] 74 mg/dL >40 [facility] Comment on above: The drugs N-Acetylcy steine and Metamizole may falsely depress this assay. Reference Range HDL <40 mg/dL Low HDL Cholesterol HDL >or= 60 mg/dL High HDL Cholesterol Serum or plasma cholesterol in VLDL measurement (mass/volume)Ordered By: Alfa Bush on 01-31-2022 Cholesterol in VLDL [Mass/Vol] 22 mg/dL 5-40 [facility] Serum or plasma creatinine m easurement (mass/volume)Ordered By: Alfa Bush on 01-31-2022 Creatinine [Mass/Vol] 1.75 mg/dL 0.55-1.02 [facility] Comment on above: The validity of the calculated GFR & GFRAA in patients over 70 years has not been determined. Clinical correlation is essential. Serum or plasma low density lipoprotein (LDL) cholesterol measurement (mass/volume)Ordered By: Alfa Bush on 01-31-2022 Cholesterol in LDL [Mass/Vol] 94 mg/dL 0-130 [facility] Serum or plasma urea nitroge n measurement (mass/volume)Ordered By: Alfa Bush on 01-31-2022 Urea nitrogen [Mass/Vol] 34 mg/dL 7-18 [facility] Thin prep Papanicolaou smear with manual screeningOrdered By: Alfa Bush on 01-31-2022 Thin prep Papanicolaou smear with manual screening 26 U/L 15-37 [facility] Thin prep Papanicolaou smear with manual screening 3 5-15 [facility] INR in Blood by Coagulation assayOrdered By: Dr. Martines on 01-17-2022 INR Coag (Bld) [Relative time] 2.7 {INR} [facility] Laboratory - CoagulationOrde red By: Dr. Martines on 01-17-2022 PT Coag (PPP) [Time] 28.3 s 11.7-14.9 [facility] INR in Blood by Coagulation assayOrdered By: Dr. Martines on 12-20-2021 INR Coag (Bld) [Relative time] 2.9 {INR} [facility] - CoagulationOrde red By: Dr. Martines on 12-20-2021 PT Coag (PPP) [Time] 29.7 s 11.7-14.9 [facility] INR in Blood by Coagulation assayon 11-26-2021 INR Coag (Bld) [Relative time] 2.8 {INR} [facility] Work Phone: Laboratory - Coagulationon 1 0 PT Coag (PPP) [Time] 29.2 s 11.7-14.9 [facility] Work Phone: [phone] INR in Blood by Coagulation assayon 11-05-2021 INR Coag (Bld) [Relative time] 3.0 {INR} [facility] Work Phone: Laboratory - Coagulationon 0 11-05-2021 PT Coag (PPP) [Time] 30.6 s 11.7-14.9 [facility] Work Phone: INR in Blood by Coagulation assayon 10-08-2021 INR Coag (Bld) [Relative time] 3.4 {INR} [facility] Work Phone: Laboratory - Coagulationon 0 10-08-2021 PT Coag (PPP) [Time] 33.7 s 11.7-14.9 [facility] Work Phone: INR in Blood by Coagulation assayon 09-10-2021 INR Coag (Bld) [Relative time] 3.7 {INR} [facility] Work Phone: Laboratory - Coagulationon 0 09-10-2021 PT Coag (PPP) [Time] 36.2 s 11.7-14.9 [facility] Work Phone: INR in Blood by Coagulation assayon 08-18-2021 INR Coag (Bld) [Relative time] 4.8 {INR} [facility] Work Phone: Comment on above: CRITICAL VALUE VERIF IED. CALLED TO [facility]08/18/21 Jos Weston.RESULTS READ BACK BY SAME . Laboratory - Coagulationon 0 08-18-2021 PT Coag (PPP) [Time] 44.4 s 11.7-14.9 [facility] Work Phone: No Panel Informationon 08-18 INR International Normalized Ratio 4.5 [facility] Work Phone: Basophil percentageon 2021 Bilirubin [Mass/Vol] 0.60 mg/dL 0.20-1.00 [facility] Work Phone: [phone] Comment on above: For patients on eltr ombopag therapy, use of Dimension [place] TBIL is not recommended. Cholesterol [Mass/Vol] 197 mg/dL <200 [facility] Work Phone: [phone] Comment on above: <200 mg/dL Desirable 200-240 mg/dL Borderline >240 mg/dL High Risk Protein [Mass/Vol] 6.8 g/dL 6.4-8.2 [facility] Work Phone: [phone] Triglyceride [Mass/Vol] 95 mg/dL <199 [facility] Work Phone: [phone] Comment on above: The drugs N-Acetylcy steine and Metamizole may falsely depress this assay.Serum Triglycerides Reference Interval Normal <150 mg/dL Borderline high 150 - 199 mg/dL High 200 - 499 mg/dL Very High > or = 500 mg/dL Direct bilirubinon 2 Bilirubin.direct [Mass/Vol] 0.19 mg/dL 0.00-0.30 [facility] Work Phone: [phone] Laboratory - Chemistry and C hemistry - challengeon 07-21-2021 ALP [Catalytic activity/Vol] 111 U/L 45-117 [facility] Work Phone: [phone] ALT [Catalytic activity/Vol] 33 U/L 13-56 [facility] Work Phone: [phone] Globulin (S) [Mass/Vol] 3.5 g/dL 2.2-4.2 [facility] Work Phone: [phone] Serum or plasma albumin geoffrey urement (mass/volume)on 07-21-2021 Albumin [Mass/Vol] 3.3 g/dL 3.2-5.0 [facility] Work Phone: [phone] Serum or plasma cholesterol in HDL measurement (mass/volume)on 07-21-2021 Cholesterol in HDL [Mass/Vol] 75 mg/dL >40 [facility] Work Phone: [phone] Comment on above: The drugs N-Acetylcy steine and Metamizole may falsely depress this assay. Reference Range HDL <40 mg/dL Low HDL Cholesterol HDL >or= 60 mg/dL High HDL Cholesterol Serum or plasma cholesterol in VLDL measurement (mass/volume)on 07-21-2021 Cholesterol in VLDL [Mass/Vol] 19 mg/dL 5-40 [facility] Work Phone: Serum or plasma low density lipoprotein (LDL) cholesterol measurement (mass/volume)on 07-21-2021 Cholesterol in LDL [Mass/Vol] 103 mg/dL 0-130 [facility] Work Phone: Thin prep Papanicolaou smear with manual screeningon 07-21-2021 Thin prep Papanicolaou smear with manual screening 32 U/L 15-37 [facility] Work Phone: Laboratory - Chemistry and C hemistry - challengeon 06-28-2021 Free T4 [Mass/Vol] 1.33 ng/dL 0.76-1.46 [facility] Work Phone: No Panel Informationon 06-28 Thyroid Stimulating Hormone (TSH) 4.68 uIU/mL 0.358-3.74 [facility] Work Phone: INR in Blood by Coagulation assayon 06-23-2021 INR Coag (Bld) [Relative time] 3.0 {INR} [facility] Work Phone: Laboratory - Coagulationon 0 06-23-2021 PT Coag (PPP) [Time] 30.7 s 11.7-14.9 [facility] Work Phone: INR in Blood by Coagulation assayon 05-25-2021 INR Coag (Bld) [Relative time] 2.9 {INR} [facility] Work Phone: Laboratory - Coagulationon 0 05-25-2021 PT Coag (PPP) [Time] 29.5 s 11.7-14.9 [facility] Work Phone: INR in Blood by Coagulation assayon 05-04-2021 INR Coag (Bld) [Relative time] 3.3 {INR} [facility] Work Phone: Laboratory - Coagulationon 0 05-04-2021 PT Coag (PPP) [Time] 32.4 s 11.7-14.9 [facility] Work Phone: INR in Blood by Coagulation assayon 04-06-2021 INR Coag (Bld) [Relative time] 2.4 {INR} [facility] Work Phone: Laboratory - Coagulationon 0 04-06-2021 PT Coag (PPP) [Time] 25.6 s 11.7-14.9 [facility] Work Phone: INR in Blood by Coagulation assayon 03-17-2021 INR Coag (Bld) [Relative time] 3.1 {INR} [facility] Work Phone: Laboratory - Coagulationon 0 03-17-2021 PT Coag (PPP) [Time] 30.9 s 11.7-14.9 [facility] Work Phone: INR in Blood by Coagulation assayon 02-09-2021 INR Coag (Bld) [Relative time] 3.4 {INR} [facility] Work Phone: Laboratory - Coagulationon 1 04-12-2020 PT Coag (PPP) [Time] 33.8 s 11.7-14.9 [facility] Work Phone: Lab Report: Prothrombin Time w/INRon 04-17-2017 Coagulation tissue factor induced in platelet poor plasma 33.7 s High 11.7-14.9 [facility] Work Phone: [phone] INR in blood by coagulation 3.5 {INR} Critically high [facility] Work Phone: [phone] Lab Report: Prothrombin Time w/INRon 04-07-2017 Coagulation tissue factor induced in platelet poor plasma 29.9 s High 11.7-14.9 [facility] Work Phone: [phone] INR in blood by coagulation 3.0 {INR} Invalid Interpretation Code [facility] Work Phone: [phone] Lab Report: Prothrombin Time w/INRon 03-31-2017 Coagulation tissue factor induced in platelet poor plasma 31.7 s High 11.7-14.9 [facility] Work Phone: [phone] INR in blood by coagulation 3.2 {INR} Invalid Interpretation Code [facility] Work Phone: [phone] Lab Report: Prothrombin Time w/INRon 03-14-2017 Coagulation tissue factor induced in platelet poor plasma 33.7 s High 11.7-14.9 [facility] Work Phone: [phone] INR in blood by coagulation 3.5 {INR} Critically high [facility] Work Phone: [phone] Lab Report: Prothrombin Time w/INRon 02-14-2017 Coagulation tissue factor induced in platelet poor plasma 31.5 s High 11.7-14.9 [facility] Work Phone: [phone] INR in blood by coagulation 3.2 {INR} Invalid Interpretation Code [facility] Work Phone: [phone] Coumadin Management: Dejuan n Calcon 01-16-2017 INR Coag RelTime (Bld) Hospital lab Invalid Interpretation Code [facility] Work Phone: [phone] INR Coag RelTime (Bld) 2.5 to 3.5 Invalid Interpretation Code [facility] Work Phone: [phone] INR Coag RelTime (PPP) 3.4 {INR} Invalid Interpretation Code [facility] Work Phone: [phone] Prothrombin time (PT) Coag time (PPP) 32.9 s Invalid Interpretation Code [facility] Work Phone: [phone] Lab Report: Prothrombin Time w/INRon 01-16-2017 Prothrombin time (PT) Coag time (PPP) 32.9 s High 11.7-14.9 [facility] Work Phone: [phone] Coumadin Management: Warfari n Calcon 12-12-2016 INR Coag RelTime (Bld) 2.5 to 3.5 Invalid Interpretation Code [facility] Work Phone: [phone] INR Coag RelTime (Bld) Hospital lab Invalid Interpretation Code [facility] Work Phone: [phone] INR Coag RelTime (PPP) 2.8 {INR} Invalid Interpretation Code [employer] Phone: [phone] international normalized ratio (INR) range 2.5 to 3.5 Invalid Interpretation Code [employer] Phone: [phone] Prothrombin time (PT) Coag time (PPP) 28.2 s Invalid Interpretation Code [employer] Phone: [phone] Lab Report: Prothrombin Time w/INRon 12-12-2016 Prothrombin time (PT) Coag time (PPP) 28.2 s High 11.7-14.9 [employer] Phone: [phone] Office Visiton 12-12-2016 Dietary management education, guidance, and counseling (procedure) yes Invalid Interpretation Code [employer] Phone: [phone] Documentation of current medications (procedure) Done Invalid Interpretation Code [employer] Phone: [phone] Fall risk assessment No Invalid Interpretation Code [employer] Phone: [phone] Protein mass conc Done Invalid Interpretation Code [employer] Phone: [phone] Replaced Document: Dorota Chaves CG Observationson 12-12-2016 EKG QRS axis -46 deg Invalid Interpretation Code [employer] Phone: [phone] electrocardiogram interpretation Sinus Rhythm -First degree A-V block Mona = 242-Left axis -anterior fascicular block. -Anteroseptal infarct -age undetermined. -Nonspecific ST depression -Nondiagnostic. ABNORMAL Invalid Interpretation Code [employer] Phone: [phone] GE use only - for [employer] import when terms are not otherwise specified 477 ms Invalid Interpretation Code [employer] Phone: [phone] Interpretation Sinus Rhythm -First degree A-V block Mona = 242-Left axis -anterior fascicular block. -Anteroseptal infarct -age undetermined. -Nonspecific ST depression -Nondiagnostic. ABNORMAL Invalid Interpretation Code [employer] Phone: [phone] P Alpine 90 deg Invalid Interpretation Code [employer] Phone: [phone] P wave axis, electrocardiogram 90 deg Invalid Interpretation Code [employer] Phone: WI Interval 242 ms Invalid Interpretation Code [facility] Work Phone: [phone] WI interval, electrocardiogram 242 ms Invalid Interpretation Code [facility] Work Phone: [phone] Pulse (Heart Rate) 79 /min Invalid Interpretation Code [facility] Work Phone: [phone] QRS axis, electrocardiogram -46 deg Invalid Interpretation Code [facility] Work Phone: [phone] QRS Duration 124 ms Invalid Interpretation Code [facility] Work Phone: [phone] QRS duration, electrocardiogram 124 ms Invalid Interpretation Code [facility] Work Phone: [phone] QT Interval new path ms Invalid Interpretation Code [facility] Work Phone: [phone] QT interval, electrocardiogram new path ms Invalid Interpretation Code [facility] Work Phone: [phone] QTc Rowe 477 ms Invalid Interpretation Code [facility] Work Phone: [phone] T Alpine 16 deg Invalid Interpretation Code [facility] Work Phone: [phone] T wave axis, electrocardiogram 16 deg Invalid Interpretation Code [facility] Work Phone: [phone] Chart Maintenanceon 11-18-19 17 Left ventricular Ejection fraction 60 % Invalid Interpretation Code [facility] Work Phone: [phone] Coumadin Management: Warfari n Calcon 11-11-2016 Coagulation tissue factor induced in platelet poor plasma 0 s Invalid Interpretation Code [facility] Work Phone: [phone] INR Coag RelTime (PPP) 3.0 {INR} [facility] Work Phone: [phone] INR in blood by coagulation 2.5 to 3.5 Invalid Interpretation Code [facility] Work Phone: [phone] INR in blood by coagulation Hospital lab Invalid Interpretation Code [facility] Work Phone: [phone] INR in blood by coagulation 3.0 {INR} Invalid Interpretation Code [facility] Work Phone: [phone] international normalized ratio (INR) range 2.5 to 3.5 [facility] Work Phone: [phone] Lab Report: Lipid Profileon 11-11-2016 Cholesterol 218 mg/dL High 200 [facility] Work Phone: [phone] HDL Cholesterol 58 mg/dL Invalid Interpretation Code [facility] Work Phone: [phone] LDL Cholesterol 134 mg/dL High 0-130 [facility] Work Phone: [phone] Triglyceride 130 mg/dL Invalid Interpretation Code [facility] Work Phone: [phone] very low density lipoproteins 26 mg/dL Invalid Interpretation Code 5-40 [facility] Work Phone: [phone] Lab Report: Liver Profileon 11-11-2016 Globulin mass conc (S) 3.6 g/dL High 2.3-3.5 [facility] Work Phone: [phone] Lab Report: Prothrombin Time w/INRon 11-11-2016 Coagulation tissue factor induced in platelet poor plasma 30.2 s High 11.7-14.9 [employer] Work Phone: [phone] Replaced Document: Liver Pro fileon 11-11-2016 Alanine aminotransferase (ALT) 30 U/L Invalid Interpretation Code 12-78 [employer] Work Phone: [phone] Albumin 3.3 g/dL Low 3.4-5.0 [employer] Work Phone: [phone] Alkaline phosphatase (ALP) 108 U/L Invalid Interpretation Code 45-117 [employer] Work Phone: [phone] ALP enzyme act/vol (Bld) 108 U/L Invalid Interpretation Code 45-117 [facility] Work Phone: [phone] Aspartate aminotransferase (AST) 30 U/L Invalid Interpretation Code 15-37 [facility] Work Phone: [phone] Bilirubin (direct) 0.12 mg/dL Invalid Interpretation Code 0.00-0.30 [employer] Work Phone: [phone] Bilirubin (total) 0.50 mg/dL Invalid Interpretation Code 0.20-1.00 [employer] Work Phone: [phone] Globulin 3.6 g/dL High 2.3-3.5 [facility] Work Phone: [phone] Protein 6.9 g/dL Invalid Interpretation Code 6.4-8.2 [employer] Work Phone: [phone] Coumadin Management: Warnerari n Calcon 10-25-2016 Coagulation tissue factor induced in platelet poor plasma 30.5 s Invalid Interpretation Code [facility] Work Phone: [phone] INR in blood by coagulation Hospital lab Invalid Interpretation Code [facility] Work Phone: [phone] INR in blood by coagulation 3.1 {INR} Invalid Interpretation Code [facility] Work Phone: [phone] INR in blood by coagulation 2.5 to 3.5 Invalid Interpretation Code [facility] Work Phone: [phone]) Lab Report: Prothrombin Time w/INRon 10-25-2016 Coagulation tissue factor induced in platelet poor plasma 30.5 s High 11.7-14.9 [facility] Work Phone: [phone] Coumadin Management: Warnerari n Calcon 09-27-2016 INR Coag RelTime (Bld) Hospital lab [facility] Work Phone: [phone] INR Coag RelTime (PPP) 3.5 {INR} [facility] Work Phone: [phone] international normalized ratio (INR) range 2.5 to 3.5 [facility] Work Phone: [phone] Prothrombin time (PT) Coag time (PPP) 33.5 s [facility] Work Phone: [phone] Lab Report: Prothrombin Time w/INRon 09-27-2016 Prothrombin time (PT) Coag time (PPP) 33.5 s High 11.7-14.9 [facility] Work Phone: [phone] Coumadin Management: Warnerari n Calcon 08-29-2016 INR Coag RelTime (Bld) Hospital lab [facility] Work Phone: [phone] INR Coag RelTime (PPP) 2.5 {INR} [facility] Work Phone: [phone] international normalized ratio (INR) range 2.5 to 3.5 [facility] Work Phone: [phone] Prothrombin time (PT) Coag time (PPP) 26.3 s [facility] Work Phone: [phone] Lab Report: Prothrombin Time w/INRon 08-29-2016 Prothrombin time (PT) Coag time (PPP) 26.3 s High 11.7-14.9 [facility] Work Phone: [phone] Coumadin Management: Dejuan n Calcon 08-02-2016 INR Coag RelTime (Bld) Hospital lab [facility] Work Phone: [phone] INR Coag RelTime (PPP) 2.7 {INR} [facility] Work Phone: [phone] international normalized ratio (INR) range 2.5 to 3.5 [facility] Work Phone: [phone]) Prothrombin time (PT) Coag time (PPP) 27.4 s [facility] Work Phone: [phone] Lab Report: Prothrombin Time w/INRon 08-02-2016 Prothrombin time (PT) Coag time (PPP) 27.4 s High 11.7-14.9 [facility] Work Phone: [phone] Coumadin Management: Dejuan n Calcon 07-11-2016 Coagulation tissue factor induced in platelet poor plasma 26.8 s Invalid Interpretation Code [facility] Work Phone: [phone] INR in blood by coagulation Hospital lab Invalid Interpretation Code [facility] Work Phone: [phone] INR in blood by coagulation 2.6 {INR} Invalid Interpretation Code [facility] Work Phone: [phone] INR in blood by coagulation 2.5 to 3.5 Invalid Interpretation Code [facility] Work Phone: [phone] Lab Report: Prothrombin Time w/INRon 07-11-2016 Coagulation tissue factor induced in platelet poor plasma 26.8 s High 11.7-14.9 [facility] Work Phone: [phone] Coumadin Management: Warfari n Calcon 06-20-2016 Coagulation tissue factor induced in platelet poor plasma 27.5 s Invalid Interpretation Code [facility] Work Phone: [phone] INR in blood by coagulation Hospital lab Invalid Interpretation Code [facility] Work Phone: [phone] INR in blood by coagulation 2.7 {INR} Invalid Interpretation Code [facility] Work Phone: [phone] INR in blood by coagulation 2.5 to 3.5 Invalid Interpretation Code [employer] Work Phone: [phone] Lab Report: Prothrombin Time w/INRon 06-20-2016 Coagulation tissue factor induced in platelet poor plasma 27.5 s High 11.7-14.9 [facility] Work Phone: [phone] Replaced Document: Dorota Martínezon 06-02-2016 EKG QRS axis -31 deg [employer] Work Phone: [phone] electrocardiogram interpretation Marked atrial Bradycardia P:QRS - 1:1, Abnormal P axis, H Rate 48-Anteroseptal infarct -age undetermined. ABNORMAL Invalid Interpretation Code [employer] Work Phone: [phone] GE use only - for [employer] import when terms are not otherwise specified 489 ms Invalid Interpretation Code [facility] Work Phone: [phone] Interpretation Marked atrial Bradycardia P:QRS - 1:1, Abnormal P axis, H Rate 48-Anteroseptal infarct -age undetermined. ABNORMAL [facility] Work Phone: [phone] P Alpine -45 deg [employer] Work Phone: [phone] P wave axis, electrocardiogram -45 deg Invalid Interpretation Code [employer] Work Phone: [phone] WI Interval 146 ms [employer] Work Phone: [phone] WI interval, electrocardiogram 146 ms Invalid Interpretation Code [employer] Work Phone: [phone] Pulse (Heart Rate) 48 /min Invalid Interpretation Code [employer] Work Phone: [phone] QRS axis, electrocardiogram -31 deg Invalid Interpretation Code [employer] Work Phone: [phone] QRS Duration 118 ms [employer] Work Phone: [phone] QRS duration, electrocardiogram 118 ms Invalid Interpretation Code [employer] Work Phone: [phone] QT Interval new path ms [employer] Work Phone: [phone] QT interval, electrocardiogram new path ms Invalid Interpretation Code [employer] Work Phone: [phone] QTc Rowe 489 ms [employer] Work Phone: [phone] T Alpine -1 deg [facility] Work Phone: [phone] T wave axis, electrocardiogram -1 deg Invalid Interpretation Code [facility] Work Phone: [phone] Lab Report: Prothrombin Time Fingerstickon 05-26-2016 Coagulation tissue factor induced in platelet poor plasma 42.9 s High 11.9-14.4 [facility] Work Phone: [phone]) Lab Report: Basic Metabolic Profile (BMP)on 05-20-2016 Anion gap 9 mmol/L Invalid Interpretation Code 5-15 [facility] Work Phone: [phone] Anion gap 4 molar conc 9 Invalid Interpretation Code 5-15 [facility] Work Phone: [phone] Anion gap molar conc 9 mmol/L 5-[address] [facility] Work Phone: [phone] BUN/Creatinine Ratio 20.0 RATIO Invalid Interpretation Code 10-20 [facility] Work Phone: [phone] Calcium 8.6 mg/dL Invalid Interpretation Code 8.5-10.1 [facility] Work Phone: [phone] Chloride 105 mmol/L Invalid Interpretation Code 98-107 [facility] Work Phone: [phone] CO2 25.0 mmol/L Invalid Interpretation Code 21.0-32.0 [facility] Work Phone: [phone] CO2 ppres (BldV) 25.0 mmol/L Invalid Interpretation Code 21.0-32.0 [facility] Work Phone: [phone] Creatinine 1.40 mg/dL High 0.55-1.02 [facility] Work Phone: [phone] eGFR (non-black) 39 mL/min/{1.73_m2} Low >60 [facility] Work Phone: [phone] eGFR (non-black) 47 mL/min/{1.73_m2} Low >60 [facility] Work Phone: [phone] EST GFR - AA 47 mL/min Low >60 [facility] Work Phone: [phone] Glucose 75 mg/dL Invalid Interpretation Code 70-110 [facility] Work Phone: [phone] Glucose mass conc 75 mg/dL Invalid Interpretation Code 70-110 [employer] Phone: [phone] Potassium 4.1 mmol/L Invalid Interpretation Code 3.5-5.1 [facility] Work Phone: [phone] Sodium 139 mmol/L Invalid Interpretation Code 136-145 [employer] Phone: [phone] Urea nitrogen 28 mg/dL High 7-18 [employer] Work Phone: [phone] Office Visiton 05-02-2016 Documentation of current medications (procedure) Done Invalid Interpretation Code [employer] Phone: [phone] Fall risk assessment Yes Invalid Interpretation Code [employer] Phone: [phone] Protein mass conc Done [employer] Phone: [phone] Lab Report: Lipid Profileon 01-13-2016 Cholesterol 197 mg/dL Invalid Interpretation Code 200 [employer] Phone: [phone] HDL Cholesterol 40 mg/dL Invalid Interpretation Code [employer] Work Phone: [phone] LDL Cholesterol 124 mg/dL Invalid Interpretation Code 0-130 [employer] Work Phone: [phone] Triglyceride 165 mg/dL Invalid Interpretation Code [employer] Phone: [phone] very low density lipoproteins 33 mg/dL Invalid Interpretation Code 5-40 [employer] Phone: [phone]) Lab Report: Liver Profileon 01-13-2016 Alanine aminotransferase (ALT) 15 U/L Invalid Interpretation Code 12-78 [employer] Work Phone: [phone] Albumin 2.9 g/dL Low 3.4-5.0 [employer] Work Phone: [phone] Alkaline phosphatase (ALP) 164 U/L High 45-117 [employer] Work Phone: [phone] ALP enzyme act/vol (Bld) 164 U/L High 45-117 [employer] Phone: [phone] Aspartate aminotransferase (AST) 17 U/L Invalid Interpretation Code 15-37 [employer] Phone: [phone] Bilirubin (direct) 0.12 mg/dL Invalid Interpretation Code 0.00-0.30 [facility] Work Phone: [phone] Bilirubin (total) 0.40 mg/dL Invalid Interpretation Code 0.20-1.00 [facility] Work Phone: [phone] Globulin 4.2 g/dL High 2.3-3.5 [facility] Work Phone: [phone] Globulin mass conc (S) 4.2 g/dL High 2.3-3.5 [facility] Work Phone: [phone] Protein 7.1 g/dL Invalid Interpretation Code 6.4-8.2 [facility] Work Phone: [phone]) Office Visiton 08-17-2015 Tobacco smoking status HIIS Tobacco smoking status NHIS Invalid Interpretation Code [facility] Work Phone: [phone] Tobacco smoking status HIIS Never smoker Invalid Interpretation Code [facility] Work Phone: [phone] Tobacco use [facility] Never smoker Invalid Interpretation Code [facility] Work Phone: [phone] 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 Left ventricular Ejection fraction 65 % Invalid Interpretation Code [facility] Work Phone: [phone]) Lab Report: T4 Total, Thyrox inon 06-05-2015 Thyroxine (T4) 13.0 ug/dL Invalid Interpretation Code 4.8-13.9 [facility] Work Phone: [phone]) Lab Report: Thyroid Stim Hor rolanda (TSH)on 06-05-2015 Thyroid stimulating hormone (TSH) 4.86 u[iU]/mL High 0.358-3.74 [facility] Work Phone: [phone] Office Visiton 02-09-2015 General cardiovascular disease 10Y risk [#] Ransom.D'Agostino 5 % Invalid Interpretation Code [facility] Work Phone: [phone] Lab Report: Blood Gas Specim en Typeon 12-26-2014 arterial blood gas MARISEL Invalid Interpretation Code [facility] Work Phone: [phone] BLD GAS TYPE MARISEL Invalid Interpretation Code [facility] Work Phone: [phone]) Lab Report: HH, Hemoglobin A ND Hematocriton 12-26-2014 Hematocrit (HCT) 33.9 % Low 37-47 [facility] Work Phone: [phone] Hematocrit Volume Fraction (Bld) 33.9 % Low 37-47 [facility] Work Phone: [phone] Hemoglobin (HGB) 11.1 g/dL Low 12.0-15.0 [facility] Work Phone: [phone]) Lab Report: PO2 I-Johanne Oxygen in arterial blood 67 mm[Hg] Low 75-100 [facility] Work Phone: [phone] Oxygen ppres (Bld) 67 mm[Hg] Low 75-100 [facility] Work Phone: [phone] Lab Report: SO2 ISTATon O2 saturation 93 % Low 95-99 [facility] Work Phone: [phone] SaO2% mass fraction (BldA) 93 % Low 95-99 [facility] Work Phone: [phone] Lab Report: VBG PO2 I-Johanne 12-26-2014 oxygen, partial pressure, venous blood 37 mm[Hg] Invalid Interpretation Code 25-40 [facility] Work Phone: [phone] VBG PO2 I-STAT 37 mm[Hg] Invalid Interpretation Code 25-40 [facility] Work Phone: [phone] Lab Report: VBG SO2 ISTATon 12-26-2014 saturation venous oxygen 70 % Invalid Interpretation Code 50-70 [facility] Work Phone: [phone] VBG SO2 ISTAT 70 % Invalid Interpretation Code 50-70 [facility] Work Phone: [phone] Lab Report: CBC-Complete Blo od Cnt No Diffon 12-16-2014 Erythrocyte distribution width Auto Ratio (RBC) 54.0 fL High 35.1-43.9 [facility] Work Phone: [phone] Erythrocyte distribution width Ratio (RBC) 15.0 % High 11.6-14.6 [facility] Work Phone: [phone] Erythrocyte distribution width Ratio (RBC) 54.0 fL High 35.1-43.9 [facility] Work Phone: Erythrocytes (RBC) 4.02 10*6/uL Low 4.2-5.[address] [facility] Work Phone: [phone] MCH 32.1 pg High 27.0-32.0 [facility] Work Phone: [phone] MCH Entitic mass (RBC) 32.1 pg High 27.0-32.0 [facility] Work Phone: [phone] MCHC 32.6 G/GL Invalid Interpretation Code 32-36 [facility] Work Phone: [phone] MCHC mass conc (RBC) 32.6 G/GL 32-[address] [facility] Work Phone: [phone] MCV 98.5 fL Invalid Interpretation Code 81-99 [facility] Work Phone: [phone] MCV Entitic volume (RBC) 98.5 fL 81-99 [facility] Work Phone: [phone] Platelet mean volume Entitic volume (Bld) 9.7 fL 6.2-12.0 [facility] Work Phone: [phone] Platelets 232 10*3/mm3 Invalid Interpretation Code 150-450 [facility] Work Phone: [phone] Platelets #/vol (Bld) 232 10*3/mm3 150-450 [facility] Work Phone: [phone] PMV by Fredis 9.7 fL Invalid Interpretation Code 6.2-12.0 [facility] Work Phone: [phone] RBC #/vol (Bld) 4.02 10*6/uL Low 4.2-5.4 [facility] Work Phone: [phone] RDW SD 54.0 fL High 35.1-43.9 [facility] Work Phone: [phone] RDW-CA 15.0 % High 11.6-14.6 [facility] Work Phone: [phone] red blood cell distribution width, size density 54.0 fL High 35.1-43.9 [facility] Work Phone: [phone] WBC #/vol (Bld) 6.9 10*3/uL 4.4-11.0 [facility] Work Phone: [phone] WBC (Leukocytes) 6.9 10*3/uL Invalid Interpretation Code 4.4-11.0 [facility] Work Phone: [phone] Lab Report: Partial Thrombop last Timeon 12-16-2014 aPTT 43.7 s High 24.1-36.2 [facility] Work Phone: [phone] Office Visiton 06-02-2014 Dietary management education, guidance, and counseling (procedure) yes Invalid Interpretation Code [facility] Work Phone: [phone] Office Visiton 01-27-2014 cardiac risk group B Invalid Interpretation Code [facility] Work Phone: [phone] Replaced Document: Janaemark E CG Observationson 01-23-2012 Pulse (Heart Rate) 430 ms Invalid Interpretation Code [facility] Work Phone: [phone] Vital Signs Date Time Vital Sign Value Performing Clinician Facility 08-26-2024 11:09-0400 Body height 160.02 cm Mireille Garnica MD Work Phone: [facility] 08-26-2024 11:09-0400 Body mass index (BMI) [Ratio] 23 kg/m2 Mireille Garnica MD Work Phone: [facility] 08-26-2024 11:09-0400 Body weight 58.96 kg Mireille Garnica MD Work Phone: [facility] 08-26-2024 11:09-0400 Diastolic blood pressure 67 mm[Hg] Mireille Garnica MD Work Phone: [facility] 08-26-2024 11:09-0400 Heart rate 91 /min Mireille Garnica MD Work Phone: [facility] 08-26-2024 11:09-0400 Respiratory rate 16 /min Mireille Garnica MD Work Phone: [facility] 08-26-2024 11:09-0400 Systolic blood pressure 108 mm[Hg] Mireille Garnica MD Work Phone: [facility] 07-20-2024 22:10-0400 Body mass index (BMI) [Ratio] 27.6 kg/m2 Mireille Garnica MD Work Phone: [facility] 07-02-2024 04:01-0400 Body temperature 97.34 [degF] EMMANUEL DE LA CRUZ MD [address] 07-02-2024 04:01-0400 Diastolic Blood Pressure Non-Invasive 62 mm[Hg] EMMANUEL DE LA CRUZ MD [address] [place] [address] 07-02-2024 04:01-0400 Heart rate 70 /min EMMANUEL DE LA CRUZ MD [address] [place] [address] 07-02-2024 04:01-0400 Systolic Blood Pressure Non-Invasive 123 mm[Hg] EMMANUEL DE LA CRUZ MD [address] [place] [address] 07-02-2024 02:11-0400 Heart rate 55 /min EMMANUEL DE LA CRUZ MD [address] [place] [address] 07-02-2024 02:11-0400 Respiratory rate 12 /min EMMANUEL DE LA CRUZ MD [address] [place] [address] 07-01-2024 23:00-0400 Heart rate 64 /min EMMANUEL DE LA CRUZ MD [address] [place] [address] 07-01-2024 21:46-0400 Respiratory rate 16 /min EMMANUEL DE LA CRUZ MD [address] [place] [address] 07-01-2024 19:41-0400 Body temperature 97.7 [degF] EMMANUEL DE LA CRUZ MD [address] [place] [address] 07-01-2024 19:41-0400 Diastolic Blood Pressure Non-Invasive 52 mm[Hg] EMMANUEL DE LA CRUZ MD [address] [place] [address] 07-01-2024 19:41-0400 Heart rate 60 /min EMMANUEL DE LA CRUZ MD [address] [place] [address] 07-01-2024 19:41-0400 Reason For Taking VItal Signs EMMANUEL DE LA CRUZ MD [address] [place] [address] 07-01-2024 19:41-0400 Systolic Blood Pressure Non-Invasive 119 mm[Hg] EMMANUEL DE LA CRUZ MD [address] [place] [address] 07-01-2024 15:40-0400 Diastolic Blood Pressure Non-Invasive 51 mm[Hg] EMMANUEL DE LA CRUZ MD [address] [place] [address] 07-01-2024 15:40-0400 Systolic Blood Pressure Non-Invasive 127 mm[Hg] EMMANUEL DE LA CRUZ MD [address] [place] [address] 07-01-2024 14:50-0400 Body temperature 96.62 [degF] EMMANUEL DE LA CRUZ MD [address] [place] [address] 07-01-2024 14:40-0400 Respiratory Rate - Anes 11 br/min EMMANUEL DE LA CRUZ MD [address] [place] [address] 07-01-2024 14:35-0400 Body temperature 96.73 [degF] EMMANUEL DE LA CRUZ MD [address] [place] [address] 07-01-2024 14:35-0400 Respiratory Rate - Anes 12 br/min EMMANUEL DE LA CRUZ MD [address] [place] [address] 07-01-2024 14:30-0400 Body temperature 96.75 [degF] EMMANUEL DE LA CRUZ MD [address] [place] [address] 07-01-2024 14:30-0400 Respiratory Rate - Anes 12 br/min EMMANUEL DE LA CRUZ MD [address] [place] [address] 07-01-2024 14:25-0400 Body temperature 96.66 [degF] EMMANUEL DE LA CRUZ MD [address] [place] [address] 07-01-2024 11:05-0400 Body height 157.5 cm EMMANUEL DE LA CRUZ MD [address] [place] [address] 07-01-2024 11:05-0400 Body temperature 97.88 [degF] EMMANUEL DE LA CRUZ MD [address] [place] [address] 07-01-2024 11:05-0400 Body weight 61.6 kg EMMANUEL DE LA CRUZ MD [facility] 07-01-2024 11:05-0400 Heart rate 108 /min EMMANUEL DE LA CRUZ MD [facility] 06-28-2024 06:00-0400 Body mass index (BMI) [Ratio] 24.4 kg/m2 Mireille Garnica MD Work Phone: [facility] 06-28-2024 06:00-0400 Body weight 62.59 kg Mireille Garnica MD Work Phone: [facility] 06-28-2024 06:00-0400 Diastolic blood pressure 76 mm[Hg] Mireille Garnica MD Work Phone: [facility] 06-28-2024 06:00-0400 Heart rate 89 /min Mireille Garnica MD Work Phone: [facility] 06-28-2024 06:00-0400 Respiratory rate 18 /min Mireille Garnica MD Work Phone: [facility] 06-28-2024 06:00-0400 SaO2% (BldA) [Mass fraction] 96 % Mireille Garnica MD Work Phone: [facility] 06-28-2024 06:00-0400 Systolic blood pressure 114 mm[Hg] Mireille Garnica MD Work Phone: [facility] 06-19-2024 21:34-0400 Body mass index (BMI) [Ratio] 27.6 kg/m2 Mireille Garnica MD Work Phone: [facility] 06-17-2024 09:17-0400 Blood Pressure Cuff Size EMMANUEL DE LA CRUZ MD [facility] 06-17-2024 09:17-0400 Blood Pressure Location EMMANUEL DE LA CRUZ MD [facility] 06-17-2024 09:17-0400 Blood Pressure Method EMMANUEL DE LA CRUZ MD [address] 06-17-2024 09:17-0400 Body height 156.2 cm EMMANUEL DE LA CRUZ MD [address] [place] [address] 06-17-2024 09:17-0400 Body temperature 97.88 [degF] EMMANUEL DE LA CRUZ MD [address] [place] [address] 06-17-2024 09:17-0400 Body weight 63.7 kg EMMANUEL DE LA CRUZ MD [address] [place] [address] 06-17-2024 09:170400 Body weight 26.11 kg/m2 EMMANUEL DE LA CRUZ MD [address] [place] [address] 06-17-2024 09:17-0400 Diastolic Blood Pressure Non-Invasive 64 mm[Hg] EMMANUEL DE LA CRUZ MD [address] [place] [address] 06-17-2024 09:17-0400 Heart rate 46 /min EMMANUEL DE LA CRUZ MD [address] [place] [address] 06-17-2024 09:17-0400 Systolic Blood Pressure Non-Invasive 136 mm[Hg] EMMANUEL DE LA CRUZ MD [address] 05-20-2024 22:15-0400 Body mass index (BMI) [Ratio] 27.6 kg/m2 Mireille Garnica MD Work Phone: [facility] 05-07-2024 13:05-0400 Body height 160.02 cm Mireille Garnica MD Work Phone: [facility] 04-20-2024 04:52-0500 Body mass index (BMI) [Ratio] 27.6 kg/m2 Mireille Garnica MD Work Phone: [facility] 04-11-2024 10:06-0500 Body mass index (BMI) [Ratio] 25 kg/m2 Mireille Garnica MD Work Phone: [facility] 04-11-2024 10:06-0500 Body weight 63.95 kg Mireille Garnica MD Work Phone: [facility] 04-11-2024 10:06-0500 Diastolic blood pressure 60 mm[Hg] Mireille Garnica MD Work Phone: [facility] 04-11-2024 10:06-0500 Heart rate 84 /min Mireille Garnica MD Work Phone: [facility] 04-11-2024 10:06-0500 Respiratory rate 16 /min Mireille Garnica MD Work Phone: [facility] 04-11-2024 10:06-0500 Systolic blood pressure 98 mm[Hg] Mireille Garnica MD Work Phone: [facility] 03-23-2024 14:00-0500 Body mass index (BMI) [Ratio] 27.6 kg/m2 Mireille Garnica MD Work Phone: [facility] 02-21-2024 04:26-0500 Body mass index (BMI) [Ratio] 27.6 kg/m2 Mireille Garnica MD Work Phone: [facility] 02-10-2024 03:14-0500 Body temperature 98.9 [degF] Mireille Garnica MD Work Phone: [facility] 02-10-2024 03:14-0500 Diastolic blood pressure 74 mm[Hg] Mireille Garnica MD Work Phone: [facility] 02-10-2024 03:14-0500 Heart rate 93 /min Mireille Garnica MD Work Phone: [facility] 02-10-2024 03:14-0500 Respiratory rate 108 /min Mireille Garnica MD Work Phone: [facility] 02-10-2024 03:14-0500 SaO2% (BldA) [Mass fraction] 98 % Mireille Garnica MD Work Phone: [facility] 02-10-2024 03:14-0500 Systolic blood pressure 123 mm[Hg] Mireille Garnica MD Work Phone: [facility] 02-10-2024 01:08-0500 Body mass index (BMI) [Ratio] 25.7 kg/m2 Mireille Garnica MD Work Phone: [facility] 02-10-2024 01:08-0500 Body weight 65.72 kg Mireille Garnica MD Work Phone: [facility] 02-09-2024 10:41-0500 Body mass index (BMI) [Ratio] 24.6 kg/m2 Mireille Garnica MD Work Phone: [facility] 02-09-2024 10:41-0500 Body weight 63.04 kg Mireille Garnica MD Work Phone: [facility] 02-09-2024 10:41-0500 Diastolic blood pressure 61 mm[Hg] Mireille Garnica MD Work Phone: [facility] 02-09-2024 10:41-0500 Heart rate 93 /min Mireille Garnica MD Work Phone: [facility] 02-09-2024 10:41-0500 Respiratory rate 18 /min Mireille Garnica MD Work Phone: [facility] 02-09-2024 10:41-0500 SaO2% (BldA) [Mass fraction] 96 % Mireille Garnica MD Work Phone: [facility] 02-09-2024 10:41-0500 Systolic blood pressure 92 mm[Hg] Mireille Garnica MD Work Phone: [facility] 12-21-2023 20:51-0400 Body mass index (BMI) [Ratio] 27.6 kg/m2 Mireille Garnica MD Work Phone: [facility] 05-20-2023 22:38-0400 Body mass index (BMI) [Ratio] 27.6 kg/m2 [facility] 04-20-2023 23:50-0500 Body mass index (BMI) [Ratio] 27.6 kg/m2 DO Dee Azevedo Work Phone: [facility] 03-22-2023 22:41-0500 Body mass index (BMI) [Ratio] 27.6 kg/m2 DO eDe Azevedo Work Phone: [facility] 02-19-2023 20:53-0500 Body mass index (BMI) [Ratio] 27.6 kg/m2 Dr. Marian Jackson Work Phone: [facility] 01-20-2023 03:16-0500 Body mass index (BMI) [Ratio] 27.6 kg/m2 No Primary Care Physician [facility] 01-17-2023 12:52-0500 Body height 160.02 cm No Primary Care Physician [facility] 01-17-2023 12:52-0500 Body mass index (BMI) [Ratio] 23.7 kg/m2 No Primary Care Physician [facility] 01-17-2023 12:52-0500 Body weight 60.78 kg No Primary Care Physician [facility] 01-17-2023 12:52-0500 Diastolic blood pressure 70 mm[Hg] No Primary Care Physician [facility] 01-17-2023 12:52-0500 Heart rate 46 /min No Primary Care Physician [facility] 01-17-2023 12:52-0500 Respiratory rate 18 /min No Primary Care Physician [facility] 01-17-2023 12:52-0500 SaO2% (BldA) [Mass fraction] 93 % No Primary Care Physician [facility] 01-17-2023 12:52-0500 Systolic blood pressure 163 mm[Hg] No Primary Care Physician [facility] 12-20-2022 22:50-0400 Body mass index (BMI) [Ratio] 27.6 kg/m2 No Primary Care Physician [facility] 11-23-2022 09:18-0400 Body height 160.02 cm No Primary Care Physician [facility] 11-23-2022 09:18-0400 Body mass index (BMI) [Ratio] 22.6 kg/m2 No Primary Care Physician [facility] 11-23-2022 09:18-0400 Body weight 58.11 kg No Primary Care Physician [facility] 11-23-2022 09:18-0400 Diastolic blood pressure 72 mm[Hg] No Primary Care Physician [facility] 11-23-2022 09:18-0400 Systolic blood pressure 134 mm[Hg] No Primary Care Physician [facility] 11-20-2022 02:47-0400 Body mass index (BMI) [Ratio] 27.6 kg/m2 No Primary Care Physician [facility] 10-20-2022 22:57-0400 Body mass index (BMI) [Ratio] 27.6 kg/m2 Dr. Marian Jackson Work Phone: [facility] 10-18-2022 13:02-0400 Body height 160.[address] Marian Jackson Work Phone: [facility] 10-18-2022 13:02-0400 Body mass index (BMI) [Ratio] 23.3 kg/m2 Dr. Marian Jackson Work Phone: [facility] 10-18-2022 13:02-0400 Body weight 59.[address] Marian Jackson Work Phone: [facility] 10-18-2022 13:02-0400 Diastolic blood pressure 65 mm[Hg] Dr. Marian Jackson Work Phone: [facility] 10-18-2022 13:02-0400 Heart rate 45 /min Dr. Marian Jackson Work Phone: [facility] 10-18-2022 13:02-0400 Respiratory rate 18 /min Dr. Marian Jackson Work Phone: [facility] 10-18-2022 13:02-0400 SaO2% (BldA) [Mass fraction] 96 % Dr. Marian Jackson Work Phone: [facility] 10-18-2022 13:02-0400 Systolic blood pressure 156 mm[Hg] Dr. Marian Jackson Work Phone: [facility] 09-20-2022 00:44-0400 Body mass index (BMI) [Ratio] 27.6 kg/m2 Dr. Marian Jackson Work Phone: [facility] 08-19-2022 22:22-0400 Body mass index (BMI) [Ratio] 27.6 kg/m2 Dr. Marian Jackson Work Phone: [facility] 07-21-2022 09:41-0400 Body mass index (BMI) [Ratio] 27.6 kg/m2 Dr. Marian Jackson Work Phone: [facility] 06-19-2022 01:21-0400 Body mass index (BMI) [Ratio] 27.6 kg/m2 Dr. Marian Jackson Work Phone: [facility] 05-21-2022 00:33-0400 Body mass index (BMI) [Ratio] 27.6 kg/m2 Dr. Marian Jackson Work Phone: [facility] 04-19-2022 23:02-0500 Body mass index (BMI) [Ratio] 27.6 kg/m2 Dr. Marian Jackson Work Phone: [facility] 03-23-2022 08:19-0500 Body mass index (BMI) [Ratio] 27.6 kg/m2 Dr. Marian Jackson Work Phone: [facility] 03-16-2022 13:25-0500 Body height 160.02 cm No Primary Care Physician [facility] 03-16-2022 13:25-0500 Body mass index (BMI) [Ratio] 24.1 kg/m2 No Primary Care Physician [facility] 03-16-2022 13:25-0500 Body weight 61.91 kg No Primary Care Physician [facility] 03-16-2022 09:54-0500 Body mass index (BMI) [Ratio] 23.9 kg/m2 No Primary Care Physician [facility] 03-16-2022 09:54-0500 Body weight 61.23 kg No Primary Care Physician [facility] 03-16-2022 09:54-0500 Diastolic blood pressure 64 mm[Hg] No Primary Care Physician [facility] 03-16-2022 09:54-0500 Heart rate 59 /min No Primary Care Physician [facility] 03-16-2022 09:54-0500 Respiratory rate 18 /min No Primary Care Physician [facility] 03-16-2022 09:54-0500 SaO2% (BldA) [Mass fraction] 94 % No Primary Care Physician [facility] 03-16-2022 09:54-0500 Systolic blood pressure 142 mm[Hg] No Primary Care Physician [facility] 02-20-2022 03:57-0500 Body mass index (BMI) [Ratio] 27.6 kg/m2 No Primary Care Physician [facility] 02-02-2022 11:01-0500 Body height 160.02 cm No Primary Care Physician [facility] Work Phone: 02-02-2022 11:01-0500 Body mass index (BMI) [Ratio] 24.6 kg/m2 No Primary Care Physician [facility] 02-02-2022 11:01-0500 Body temperature 96.6 [degF] No Primary Care Physician [facility] 02-02-2022 11:01-0500 Body weight 63.04 kg No Primary Care Physician [facility] 02-02-2022 11:01-0500 Diastolic blood pressure 68 mm[Hg] No Primary Care Physician [facility] 02-02-2022 11:01-0500 Heart rate 76 /min No Primary Care Physician [facility] 02-02-2022 11:01-0500 Respiratory rate 16 /min No Primary Care Physician [facility] 02-02-2022 11:01-0500 SaO2% (BldA) [Mass fraction] 99 % No Primary Care Physician [facility] 02-02-2022 11:01-0500 Systolic blood pressure 120 mm[Hg] No Primary Care Physician [facility] 01-19-2022 23:13-0500 Body mass index (BMI) [Ratio] 27.6 kg/m2 No Primary Care Physician [facility] 01-03-2022 11:26-0500 Body height 160.[address] Alfa Oakes Work Phone: [facility] Work Phone: 01-03-2022 11:26-0500 Body mass index (BMI) [Ratio] 24.7 kg/m2 Dr. Alfa Oakes Work Phone: [facility] 01-03-2022 11:26-0500 Body weight 63.[address] Alfa Oakes Work Phone: [facility] 01-03-2022 11:26-0500 Diastolic blood pressure 70 mm[Hg] Dr. Alfa Oakes Work Phone: [facility] 01-03-2022 11:26-0500 Heart rate 56 /min Dr. Alfa Oakes Work Phone: [facility] 01-03-2022 11:26-0500 Respiratory rate 20 /min Dr. Alfa Oakes Work Phone: [facility] 01-03-2022 11:26-0500 Systolic blood pressure 140 mm[Hg] Dr. Alfa Oakes Work Phone: [facility] 12-21-2021 09:40-0400 Body mass index (BMI) [Ratio] 27.6 kg/m2 Dr. Alfa Oakes Work Phone: [facility] 12-09-2021 12:23-0400 Body height 160.[address] Alfa Oakes Work Phone: [facility] Work Phone: 11-24-2021 11:19-0400 Body height 160.[address] Alfa Oakes Work Phone: [facility] Work Phone: 11-24-2021 11:19-0400 Body mass index (BMI) [Ratio] 24.7 kg/m2 Dr. Alfa Oakes Work Phone: [facility] 11-24-2021 11:19-0400 Body temperature 97.3 [degF] Dr. Alfa Oakes Work Phone: [facility] 11-24-2021 11:19-0400 Body weight 63.[address] Alfa Oakes Work Phone: [facility] 11-24-2021 11:19-0400 Diastolic blood pressure 64 mm[Hg] Dr. Alfa Oakes Work Phone: [facility] 11-24-2021 11:19-0400 Heart rate 60 /min Dr. Alfa Oakes Work Phone: [facility] 11-24-2021 11:19-0400 Respiratory rate 14 /min Dr. Alfa Oakes Work Phone: [facility] 11-24-2021 11:19-0400 SaO2% (BldA) [Mass fraction] 96 % Dr. Alfa Oakes Work Phone: [facility] 11-24-2021 11:19-0400 Systolic blood pressure 138 mm[Hg] Dr. Alfa Oakes Work Phone: [phone])529-05[address] [place] [address] 11-22-2021 09:27-0400 Body mass index (BMI) [Ratio] 25.2 kg/m2 Dr. Alfa Oakes Work Phone: 7(090)088-770062 [place] [address] 11-22-2021 09:27-0400 Body weight 64.[address] Alfa Oakes Work Phone: [facility] 11-22-2021 09:27-0400 Diastolic blood pressure 59 mm[Hg] Dr. Alfa Oakes Work Phone: 3(278)495-111662 [place] [address] 11-22-2021 09:27-0400 Systolic blood pressure 133 mm[Hg] Dr. Alfa Oakes Work Phone: [facility] 11-19-2021 21:37-0400 Body mass index (BMI) [Ratio] 27.6 kg/m2 Dr. Alfa Oakes Work Phone: [facility] 10-20-2021 23:05-0400 Body mass index (BMI) [Ratio] 27.6 kg/m2 Dr. Alfa Oakes Work Phone: [facility] Work Phone: 09-28-2021 09:55-0400 Body height 160.[address] Alfa Oakes Work Phone: [facility] Work Phone: 09-28-2021 09:55-0400 Body mass index (BMI) [Ratio] 26 kg/m2 Dr. Alfa Oakes Work Phone: [facility] Work Phone: 09-28-2021 09:55-0400 Body temperature 96.8 [degF] Dr. Alfa Oakes Work Phone: [facility] Work Phone: 09-28-2021 09:55-0400 Body weight 66.[address] Alfa Oakes Work Phone: [facility] Work Phone: 09-28-2021 09:55-0400 Diastolic blood pressure 78 mm[Hg] Dr. Alfa Oakes Work Phone: [facility] Work Phone: 09-28-2021 09:55-0400 Heart rate 78 /min Dr. Alfa Oakes Work Phone: [facility] Work Phone: 09-28-2021 09:55-0400 Respiratory rate 16 /min Dr. Alfa Oakes Work Phone: [facility] Work Phone: 09-28-2021 09:55-0400 SaO2% (BldA) [Mass fraction] 98 % Dr. Alfa Oakes Work Phone: [facility] Work Phone: 09-28-2021 09:55-0400 Systolic blood pressure 118 mm[Hg] Dr. Alfa Oakes Work Phone: [facility] Work Phone: 09-19-2021 02:40-0400 Body mass index (BMI) [Ratio] 27.6 kg/m2 Dr. Alfa Oakes Work Phone: [facility] Work Phone: 08-20-2021 07:04-0400 Body mass index (BMI) [Ratio] 27.6 kg/m2 Dr. Alfa Freedman Work Phone: [facility] Work Phone: 07-20-2021 20:46-0400 Body mass index (BMI) [Ratio] 27.6 kg/m2 Dr. Alfa Freedman Work Phone: [facility] Work Phone: 06-28-2021 10:30-0400 Body height 160.[address] Alfa Freedman Work Phone: [facility] Work Phone: 06-28-2021 10:30-0400 Body mass index (BMI) [Ratio] 26.7 kg/m2 Dr. Alfa Freedman Work Phone: [facility] Work Phone: 06-28-2021 10:30-0400 Body weight 68.[address] Alfa Freedman Work Phone: [facility] Work Phone: 06-28-2021 10:30-0400 Diastolic blood pressure 71 mm[Hg] Dr. Alfa Freedman Work Phone: [facility] Work Phone: 06-28-2021 10:30-0400 Heart rate 69 /min Dr. Alfa Freedman Work Phone: [facility] Work Phone: 06-28-2021 10:30-0400 Respiratory rate 18 /min Dr. Alfa Freedman Work Phone: [facility] Work Phone: 06-28-2021 10:30-0400 SaO2% (BldA) [Mass fraction] 94 % Dr. Alfa Freedman Work Phone: [facility] Work Phone: 06-28-2021 10:30-0400 Systolic blood pressure 135 mm[Hg] Dr. Alfa Freedman Work Phone: [facility] Work Phone: 06-28-2021 10:30-0400 Body height 160.[address] Alfa Freedman Work Phone: [facility] Work Phone: 06-28-2021 10:30-0400 Body mass index (BMI) [Ratio] 26.7 kg/m2 Dr. Alfa Freedman Work Phone: [facility] Work Phone: 06-28-2021 10:30-0400 Body weight 68.[address] Alfa Freedman Work Phone: [facility] Work Phone: 06-28-2021 10:30-0400 Diastolic blood pressure 71 mm[Hg] Dr. Alfa Freedman Work Phone: [facility] Work Phone: 06-28-2021 10:30-0400 Heart rate 69 /min Dr. Alfa Freedman Work Phone: [facility] Work Phone: 06-28-2021 10:30-0400 Respiratory rate 18 /min Dr. Alfa Freedman Work Phone: [facility] Work Phone: 06-28-2021 10:30-0400 SaO2% (BldA) [Mass fraction] 94 % Dr. Alfa Freedman Work Phone: [facility] Work Phone: 06-28-2021 10:30-0400 Systolic blood pressure 135 mm[Hg] Dr. Alfa Freedman Work Phone: [facility] Work Phone: 06-20-2021 03:25-0400 Body mass index (BMI) [Ratio] 27.6 kg/m2 Dr. Alfa Freedman Work Phone: [facility] Work Phone: 05-21-2021 02:30-0400 Body mass index (BMI) [Ratio] 27.6 kg/m2 [facility] Work Phone: 04-20-2021 09:44-0500 Body mass index (BMI) [Ratio] 27.6 kg/m2 Dr. Alfa Freedman Work Phone: [facility] Work Phone: 04-20-2021 08:44-0500 Body mass index (BMI) [Ratio] 27.6 kg/m2 No Primary Care Physician [facility] Work Phone: 03-23-2021 00:14-0500 Body mass index (BMI) [Ratio] 27.6 kg/m2 No Primary Care Physician [facility] Work Phone: 02-21-2021 03:21-0500 Body mass index (BMI) [Ratio] 27.6 kg/m2 No Primary Care Physician [facility] Work Phone: 01-20-2021 02:24-0500 Body mass index (BMI) [Ratio] 27.6 kg/m2 No Primary Care Physician [facility] Work Phone: 12-27-2016 10:52-0500 BP Diastolic 68 mm[Hg] [facility] Work Phone: 12-27-2016 10:52-0500 BP Systolic 140 mm[Hg] [facility] Work Phone: 12-27-2016 10:52-0500 Pulse (Heart Rate) 52 /min [facility] Work Phone: 12-27-2016 10:52-0500 Respiratory Rate 20 /min [facility] Work Phone: 12-12-2016 16:06-0400 Heart rate 79 /min [facility]tna [facility] Work Phone: 12-12-2016 13:06-0400 BMI (Body Mass Index) 25.29 kg/m2 [facility] Work Phone: 12-12-2016 13:06-0400 BP Diastolic 64 mm[Hg] [facility] Work Phone: 12-12-2016 13:06-0400 BP Systolic 124 mm[Hg] [facility] Work Phone: 12-12-2016 13:06-0400 Height 165.1 cm [facility] Work Phone: 12-12-2016 13:06-0400 Pulse (Heart Rate) 78 /min [facility] Work Phone: 12-12-2016 13:06-0400 Respiratory [...] Pulse (Heart Rate) 74 /min [facility] Work Phone: 05-02-2016 12:55-0400 Pulse Oximetry 97 % Kylah Hooker RN [facility] Work Phone: 05-02-2016 12:55-0400 Respiratory Rate 18 /min [facility] Work Phone: 05-02-2016 12:55-0400 Weight 63.05 kg [facility] Work Phone: 01-18-2016 09:01-0500 BSA (Body Surface Area) 1.7 m2 [facility] Work Phone: 08-17-2015 08:56-0400 Pulse Oximetry 98 % [facility] Work Phone: 01-23-2012 13:30-0500 Heart rate 430 ms [facility] Work Phone: Encounters Encounter Date Encounter Type Care Provider Facility Start: 09-10-2024 Non-patient / Non-visit [facility]. [facility] [place] Start: 09-10-2024 End: 09-10-2024 ambulatory Alfa Bush SALES TRA[employer]EE-C Work Phone: -Cardiovascular Services Start: 09-10-2024 End: 09-10-2024 Patient encounter procedure Alfa Bush SALES TRAINEE-C -Cardiovascular Services Work Phone: Start: 09-10-2024 End: 09-10-2024 ambulatory Alfa Bush SALES TRAINEE Facility:[facility] Start: 09-03-2024 End: 09-19-2024 ambulatory Alfa Bush SALES TRAINEE Facility:[facility] Start: 09-03-2024 End: 09-19-2024 Discharged Recurring Alfa Bush SALES TRAINEE-C -Laboratory Work Phone: Start: 09-03-2024 Registered Recurring Alfa Bush SALES TRAINEE- C -Laboratory Work Phone: Start: 08-26-2024 End: 08-26-2024 Patient encounter procedure Alfa Bush SALES TRAINEE-C -[facility] Work Phone: Start: 08-26-2024 End: 08-26-2024 ambulatory Mireille Garnica MD Work Phone: -[facility] Start: 08-21-2024 Registered Recurring Alfa Bush SALES TRAINEE- C -Laboratory Work Phone: Start: 08-20-2024 Non-patient / Non-visit Dr. Korin vega MD -[facility] Work Phone: Start: 08-13-2024 End: 08-13-2024 ambulatory Mireille Garnica MD Work Phone: -Laboratory Start: 08-13-2024 End: 08-13-2024 Discharged Recurring Alfa Bush SALES TRAINEE-C -Laboratory Work Phone: Start: 07-19-2024 End: 07-19-2024 ambulatory Mireille Garnica MD Work Phone: [facility] Work Phone: Start: 07-19-2024 End: 07-19-2024 Patient encounter procedure Hien Louie SALES TRAINEE-C -Laboratory Work Phone: Start: 07-19-2024 End: 07-19-2024 ambulatory Hien Louie NP Facility:[facility] Start: 07-12-2024 End: 07-12-2024 ambulatory Mireille Garnica MD Work Phone: [facility] Work Phone: Start: 07-12-2024 End: 07-12-2024 Discharged Recurring Alfa Bush SALES TRAINEE-C -Laboratory Work Phone: Start: 07-01-2024 End: 07-02-2024 ambulatory MIREILLE GARNICA MD Facility:[facility] Start: 07-01-2024 End: 07-02-2024 Observation EMMANUEL DE LA CRUZ MD [facility] Start: 06-28-2024 End: 06-28-2024 Patient encounter procedure Hien Louie SALES TRAINEE-C -[facility] Work Phone: Start: 06-28-2024 End: 06-28-2024 ambulatory Hien Louie SALES TRAINEE Facility:[facility] Start: 06-17-2024 End: 06-17-2024 Admission to establishment EMMANUEL DE LA CRUZ MD [facility] Start: 06-17-2024 End: 06-17-2024 ambulatory MIREILLE GARNICA MD Facility:[facility] Start: 06-07-2024 End: 06-19-2024 ambulatory Alfa Bush SALES TRAINEE Facility:[facility] Start: 06-07-2024 End: 06-19-2024 Discharged Recurring Alfa Janeth Rachelle SALES TRAINEE-C -Laboratory Work Phone: Start: 05-16-2024 Non-patient / Non-visit [facility]. Johnson [facility] Start: 05-16-2024 End: 05-16-2024 Patient encounter procedure Alfa Bush SALES TRAINEE-C -Cardiovascular Services Work Phone: Start: 05-16-2024 End: 05-16-2024 Discharged Recurring Alfa Janeth Rachelle SALES TRAINEE-C -Laboratory Work Phone: Start: 05-16-2024 End: 05-16-2024 ambulatory Mireille Garnica MD Work Phone: [facility] Work Phone: Start: 05-16-2024 End: 05-16-2024 ambulatory Alfa Bush SALES TRAINEE Facility:[facility] Start: 05-07-2024 End: 05-07-2024 Patient encounter procedure Alfa Janeth Rachelle SALES TRAINEE-C -[facility] Work Phone: Start: 05-07-2024 End: 05-07-2024 ambulatory Alfa Bush SALES TRAINEE [place] Start: 04-15-2024 End: 04-19-2024 ambulatory Alfa Bush SALES TRAINEE Facility:[facility] Start: 04-15-2024 End: 04-19-2024 Discharged Recurring Alfa Janeth Rachelle SALES TRAINEE-C -Laboratory Work Phone: Start: 04-11-2024 End: 04-11-2024 Patient encounter procedure Alfa Janeth Rachelle SALES TRAINEE-C -[facility] Work Phone: Start: 04-11-2024 End: 04-11-2024 ambulatory Alfa H Roof SALES TRAINEE Facility:[facility] Start: 03-14-2024 End: 03-14-2024 ambulatory Alfa H Roof SALES TRAINEE Facility:[facility] Start: 03-14-2024 End: 03-14-2024 Discharged Recurring Alfa Fowler Roof SALES TRAINEE-C -Laboratory Work Phone: Start: 02-19-2024 End: 02-19-2024 ambulatory Alfa H Roof SALES TRAINEE Facility:[facility] Start: 02-19-2024 End: 02-19-2024 Discharged Recurring Alfa Fowler Roof SALES TRAINEE-C -Laboratory Work Phone: Start: 02-10-2024 End: 02-10-2024 Emergency department patient visit Dr. Avtar Bustamante -Emergency Department Work Phone: Start: 02-09-2024 End: 02-09-2024 Patient encounter procedure Alfa Fowler Roof SALES TRAINEE-C -[facility] Work Phone: Start: 02-09-2024 End: 02-09-2024 ambulatory Alfa H Roof SALES TRAINEE Facility:[facility] Start: 01-12-2024 End: 01-12-2024 ambulatory Alfa H Roof SALES TRAINEE Facility:[facility] Start: 01-12-2024 ambulatory Colleen Alegria Facility:[facility] Start: 01-12-2024 End: 01-12-2024 ambulatory Alfa H Roof SALES TRAINEE Facility:[facility] Start: 12-28-2023 End: 12-28-2023 ambulatory Alfa H Roof SALES TRAINEE Facility:[facility] Start: 12-28-2023 End: 12-28-2023 ambulatory Alfa H Roof SALES TRAINEE Facility:[facility] Start: 12-21-2023 End: 12-21-2023 ambulatory Alfa H Roof SALES TRAINEE Facility:[facility] Start: 12-20-2023 End: 12-20-2023 ambulatory Beth Condon SALES TRAINEE Facility:[facility] Start: 11-02-2023 End: 11-02-2023 ambulatory Alfa H Roof SALES TRAINEE Facility:[facility] Start: 10-19-2023 End: 10-19-2023 ambulatory Alfa H Roof SALES TRAINEE Facility:[facility] Start: 06-14-2023 End: 06-20-2023 ambulatory [facility] Work Phone: Start: 06-14-2023 End: 06-20-2023 Discharged Recurring [facility]-Laboratory Work Phone: Start: 05-02-2023 End: 05-20-2023 ambulatory DO Dee Azevedo Work Phone: [facility] Work Phone: Start: 05-02-2023 End: 05-20-2023 Discharged Recurring DO Dee Azevedo Work Phone: [facility]-Laboratory Work Phone: Start: 04-05-2023 End: 04-20-2023 ambulatory DO Dee Azevedo Work Phone: [facility] Work Phone: Start: 04-05-2023 End: 04-20-2023 Discharged Recurring DO Dee Azevedo Work Phone: [facility]-Laboratory Work Phone: Start: 03-07-2023 End: 03-07-[address] Marian Jackson Work Phone: [facility] Work Phone: Start: 03-07-2023 End: 03-07-[address] Marian Jackson Work Phone: [facility]-Laboratory Work Phone: Start: 02-07-2023 End: 02-19-[address] Marian Jackson Work Phone: [facility]-Laboratory Work Phone: Start: 01-27-2023 Non-patient / Non-visit No [facility] Start: 01-26-2023 End: 01-26-2023 ambulatory No Primary Care Physician [facility] Work Phone: Start: 01-26-2023 End: 01-26-2023 Patient encounter procedure No Primary Care Physician [facility]-Pulmonary Services/Neurology Work Phone: Start: 01-24-2023 Registered Recurring No Primar y Care Physician [facility]-Laboratory Work Phone: Start: 01-17-2023 End: 01-17-2023 Patient encounter procedure No Primary Care Physician [facility] Work Phone: Start: 01-17-2023 End: 01-19-2023 ambulatory No Primary Care Physician [facility] Work Phone: Start: 01-17-2023 End: 01-19-2023 Discharged Recurring No Primary Care Physician [facility]-Laboratory Work Phone: Start: 12-20-2022 End: 12-20-2022 ambulatory No Primary Care Physician [facility] Work Phone: Start: 12-20-2022 End: 12-20-2022 Discharged Recurring No Primary Care Physician [facility]-Laboratory Work Phone: Start: 12-12-2022 End: 12-12-2022 ambulatory No Primary Care Physician [facility] Work Phone: Start: 12-12-2022 End: 12-12-2022 Patient encounter procedure No Primary Care Physician [facility]-Outpatient Breast Imaging Work Phone: Start: 12-06-2022 Registered Recurring No Primar y Care Physician [facility]-Laboratory Work Phone: Start: 11-23-2022 End: 11-23-2022 Patient encounter procedure No Primary Care Physician [facility] Work Phone: Start: 11-03-2022 End: 11-03-[address] Marian Jackson Work Phone: [facility] Work Phone: Start: 11-03-2022 End: 11-03-[address] Marian Jackson Work Phone: [facility] [place] Work Phone: Start: 10-25-2022 End: 10-25-2022 Discharged Recurring No [facility] Start: 10-25-[address] Carolyn [facility] Start: 10-18-2022 End: 10-18-[address] Marian Jackson Work Phone: [facility] Work Phone: Start: 09-27-2022 End: 09-27-[address] Marian Jackson Work Phone: [facility] Work Phone: Start: 09-27-2022 End: 09-27-[address] [facility] Start: 08-30-2022 End: 09-19-[address] [facility] Start: 08-09-2022 End: 08-09-[address] Marian Jackson Work Phone: [facility] Work Phone: Start: 08-09-2022 End: 08-09-[address] [facility] Start: 07-29-2022 Non-patient / Non-visit Dr. Swann Work Phone: [facility] Work Phone: Start: 07-01-2022 End: 07-20-[address] Marian Jackson Work Phone: [facility] Work Phone: Start: 07-01-2022 End: 07-20-[address] Marian Jackson Work Phone: [facility]-Laboratory Start: 06-03-2022 End: 06-19-[address] Marian Jackson Work Phone: [facility] Work Phone: Start: 06-03-2022 End: 06-19-[address] Marian Jackson Work Phone: [facility]-Laboratory Start: 05-06-2022 End: 05-20-[address] Marian Jackson Work Phone: [facility] Work Phone: Start: 05-06-2022 End: 05-20-[address] Marian Jackson Work Phone: [facility]-Laboratory Start: 04-14-2022 End: 04-14-2022 ambulatory No Primary Care Physician [facility] Work Phone: Start: 04-14-2022 End: 04-14-2022 Discharged Recurring No Primary Care Physician [facility]-Laboratory Start: 04-08-2022 Non-patient / Non-visit No Mona cheo Care Physician [facility] Start: 04-05-2022 Non-patient / Non-visit No Mona grider Care Physician [facility] Start: 04-05-2022 End: 04-05-2022 ambulatory No Primary Care Physician [facility] Work Phone: Start: 04-05-2022 End: 04-05-2022 Patient encounter procedure No Primary Care Physician [facility]-Pulmonary Services/Neurology Start: 04-05-2022 Registered Recurring No Primar y Care Physician [facility]-Laboratory Start: 03-23-[address] Carolyn Jackson Work Phone: [facility]-Laboratory Start: 03-16-2022 End: 03-16-2022 Patient encounter procedure No Primary Care Physician [facility] Start: 03-16-2022 End: 03-16-[address] Marian Jackson Work Phone: [facility] Work Phone: Start: 03-16-2022 End: 03-16-2022 Patient encounter procedure No Primary Care Physician [facility]-Laboratory Start: 03-16-2022 End: 03-16-2022 Patient encounter procedure No Primary Care Physician [facility] Start: 03-08-2022 End: 03-08-2022 Patient encounter procedure No Primary Care Physician [facility] [place] Start: 03-08-2022 End: 03-08-2022 ambulatory No Primary Care Physician [facility] Work Phone: Start: 03-08-2022 End: 03-08-[address] Marian Jackson Work Phone: [facility]-Laboratory Start: 03-08-2022 Registered Recurring No Primar y Care Physician [facility]-Laboratory Start: 02-09-2022 Non-patient / Non-visit No Mona cheo Care Physician [facility] Start: 02-02-2022 End: 02-02-2022 ambulatory No Primary Care Physician [facility] Work Phone: Start: 02-02-2022 End: 02-02-2022 Patient encounter procedure No Primary Care Physician [facility]-Laboratory, [facility] Start: 02-02-2022 End: 02-02-2022 Patient encounter procedure No Primary Care Physician [facility] Start: 01-31-2022 End: 01-31-2022 ambulatory No Primary Care Physician [facility] Work Phone: Start: 01-31-2022 End: 01-31-2022 Discharged Recurring No Primary Care Physician [facility]-Laboratory Start: 01-31-2022 Registered Recurring No Primar y Care Physician [facility]-Laboratory Start: 01-19-2022 End: 01-19-[address] Alfa Oakes Work Phone: [facility] Work Phone: Start: 01-19-2022 End: 01-19-[address] Alfa Oakes Work Phone: [facility]-Physical Therapy Start: 01-19-[address] Alfa Oakes Work Phone: [facility]-Physical Therapy Start: 01-17-2022 End: 01-19-[address] Alfa Oakes Work Phone: [facility] Work Phone: Start: 01-17-2022 End: 01-19-[address] Alfa Oakes Work Phone: [facility]-Laboratory Start: 01-17-[address] Alfa Oakes Work Phone: [facility]-Laboratory Start: 01-11-[address] Alfa sweet Work Phone: [facility]-Cardiovascular Services Start: 01-11-2022 Non-patient / Non-visit Dr. Reva Oakes Work Phone: [facility] Start: 01-11-2022 End: 01-11-[address] Alfa Oakes Work Phone: [facility] Work Phone: Start: 01-11-2022 End: 01-11-[address] Alfa Oakes Work Phone: [facility]-Cardiovascular Services Start: 01-10-[address] Alfa Oakes Work Phone: [facility]-Physical Therapy Start: 01-03-2022 End: 01-03-[address] Alfa Oakes Work Phone: [facility] Start: 12-20-2021 End: 12-20-[address] Alfa Oakes Work Phone: [facility] Work Phone: Start: 12-20-2021 End: 12-20-[address] Alfa Oakes Work Phone: [facility]-Laboratory Start: 12-16-[address] Alfa Oakes Work Phone: [facility]-Physical Therapy Start: 12-14-[address] Alfa Oakes Work Phone: [facility]-Physical Therapy Start: 12-09-2021 End: 12-09-[address] Alfa Oakes Work Phone: [facility] Work Phone: Start: 12-09-2021 End: 12-09-[address] Alfa Oakes Work Phone: [facility]-Outpatient Bone Densitometry Start: 12-08-2021 End: 12-08-[address] Alfa Oakes Work Phone: [facility] Start: 11-30-2021 End: 11-30-[address] Alfa Oakes Work Phone: [facility] Work Phone: Start: 11-30-2021 End: 11-30-[address] Alfa Oakes Work Phone: [facility]-Cat Scan, [facility] [place] Start: 11-26-[address] Alfa Oakes Work Phone: [facility]-Laboratory Start: 11-24-2021 End: 11-24-[address] Alfa Oakes Work Phone: [facility] Start: 11-22-2021 End: 11-22-[address] Alfa Oakes Work Phone: [facility] Start: 11-05-2021 End: 11-05-[address] Alfa Oakes Work Phone: [facility] Work Phone: Start: 11-05-2021 End: 11-05-[address] [facility] Start: 10-15-2021 End: 10-15-[address] Alfa Oakes Work Phone: [facility], [facility] [place] Start: 10-08-2021 End: 10-08-[address] [facility] Start: 09-28-2021 End: 09-28-[address] Alfa Oakes Work Phone: [facility] Start: 09-10-2021 End: 09-19-[address] [facility]edman [facility] Start: 08-18-2021 Non-patient / Non-visit Dr. Reva Freedman Work Phone: [facility] Start: 08-18-2021 End: 08-18-[address] [facility]man [facility] Start: 06-28-2021 End: 06-28-[address] Alfa Freedman Work Phone: [facility] Start: 06-23-2021 End: 06-23-[address] [facility]edman [facility] Start: 06-23-[address] [facility]edman [facility] Start: 05-25-2021 End: 05-25-2021 Discharged Recurring [facility]-Laboratory Start: 05-04-2021 End: 05-20-2021 Discharged Recurring No Primary Care Physician [facility]-Laboratory Start: 04-06-2021 End: 04-06-2021 Discharged Recurring No Primary Care Physician [facility]-Laboratory Start: 03-17-2021 End: 03-22-2021 Discharged Recurring No Primary Care Physician [facility]-Laboratory Start: 02-16-2021 Non-patient / Non-visit No Mona cheo Care Physician [facility] Start: 02-15-2021 Patient encounter procedure No Primary Care Physician [facility]-Pulmonary Services/Neurology Start: 02-09-2021 End: 02-20-2021 Discharged Recurring No Primary Care Physician [facility]-Laboratory Start: 08-02-2016 End: 08-03-2016 Ambulatory BETH (ROGE) [facility] Procedures Date Procedure Procedure Detail Performing Clinician [...] LA CRUZ MD Start: 12-12-2016 End: 12-12-2016 GERDA Monet MD [...] Phone: Start: 06-02-2016 End: 06-02-2016 Electrocardiogram, complete Reed Monet MD Work Phone: Start: 05-20-2016 End: 05-20-2016 Nurse, Teaching, Wound Check (no charge) Reed Monet MD Work Phone: Start: 05-20-2016 End: 05-20-2016 Nurse, Teaching, Wound Check (no charge) Reed Monet MD Work Phone: Start: 05-17-2016 End: 05-20-2016 *BMP Reed Monet MD Work Phone: Start: 05-17-2016 End: 05-20-2016 *ISAAC Monet MD Work Phone: Start: 05-02-2016 End: 12-12-2016 Cardioversion Reed Monet MD Work Phone: Start: 05-02-2016 End: 05-02-2016 GERDA Monet MD Work Phone: Start: 05-02-2016 End: 05-02-2016 Follow Up Appt 6 months Reed Monet MD Work Phone: Start: 05-02-2016 End: 05-06-2016 INR in Platelet poor plasma by Coagulation assay Reed Monet MD Work Phone: Start: 05-02-2016 End: 12-12-2016 Cardioversion Reed Mnoet MD Work Phone: Start: 05-02-2016 End: 05-06-2016 [...] Start: 01-18-2016 End: 01-21-2016 Electrocardiogram, complete Reed Monet MD Work Phone: Start: 01-18-2016 [...] Work Phone: Start: 07-31-2015 End: 07-31-2015 SNOMED-CT: [id number] Report of clinical encounter Kylah Hooker RN Start: 07-31-2015 End: 07-31-2015 SNOMED-CT: [id number] Report of clinical encounter Kylah Hooker RN [...] MD Work Phone: Start: 02-09-2015 End: 02-09-2015 GERDA Monet MD Work Phone: Start: 02-09-2015 End: 02-09-2015 Follow Up Appt 6 months Reed Monet MD Work Phone: Start: 02-09-2015 End: 03-30-2015 Cardiac Rehab Reed Monet MD Work Phone: Start: 02-09-2015 End: 02-09-2015 GERDA Monet MD Work Phone: Start: 02-09-2015 End: [...] 12-30-2014 Left & Right Heart Cath Reed Mnoet MD Work Phone: Start: 12-16-2014 End: 12-30-2014 [...] MD Work Phone: Start: 12-16-2014 End: 12-16-2014 GERDA Monet MD Work Phone: Start: 12-16-2014 End: [...] MD Work Phone: Start: 07-07-2014 End: 07-07-2014 RAFAELN Reed Monet MD Work Phone: Start: 07-07-2014 [...] MD Work Phone: Start: 01-27-2014 End: 01-27-2014 RAFAELN Reed Monet MD Work Phone: Start: 01-27-2014 [...] OF [facility] Hassan Start: 01-29-2013 End: 01-29-2013 GERDA Monet MD [...] Start: 01-23-2012 End: 01-24-2012 Electrocardiogram, complete Valeriy Gonzalez MD Start: 01-23-2012 End: 01-23-2012 [...] Start: 08-26-2024 Evaluation of diagnostic study results [facility] Start: 02-12-2024 Patient referral [facility] Work Phone: Start: 02-10-2024 [facility] Start: 03-16-2022 Patient referral [facility] Work Phone: Start: 12-09-2021 Dual energy X-ray absorptiometry Dexa Bone Density Study [facility] Work Phone: Start: 12-09-2021 DXA Bone [Mass/Area] Bone density [facility] Work Phone: Start: 12-08-2021 Patient referral [facility] Work Phone: Start: 06-19-2017 End: 06-19-2017 Appointment Appointment [facility] Work Phone: Start: 12-27-2016 End: 12-27-2016 Appointment Appointment [facility] Work Phone: Start: 12-12-2016 End: 12-12-2016 Appointment Appointment [facility] Work Phone: Start: 12-12-2016 End: 12-12-2016 GERDA LORENZ [facility] Work Phone: Start: 12-12-2016 End: 12-12-2016 Follow Up Appt 6 months Follow Up Appt 6 months [facility] Work Phone: Start: 12-12-2016 End: 12-12-2016 Follow Up BP Check Follow Up BP Check [facility] Work Phone: Start: 12-12-2016 End: 12-12-2016 GERDA LORENZ [facility] Work Phone: Start: 12-12-2016 End: 12-12-2016 Follow Up Appt 6 months Follow Up Appt 6 months [facility] Work Phone: Start: 12-12-2016 End: 12-12-2016 Follow Up BP Check Follow Up BP Check [facility] Work Phone: Start: 11-21-2016 End: 11-21-2016 Appointment Appointment [facility] Work Phone: Start: 2016 End: 2016 Appointment Appointment [facility] Work Phone: Start: 2016 End: 2016 Appointment Appointment [facility] Work Phone: Start: 11-07-2016 End: 01-13-2016 *Hepatic Function Panel *Hepatic Function Panel [facility] Work Phone: Start: 11-07-2016 End: 01-13-2016 Lipid panel [AGGREGATE] *Lipid Profile CC PCP [facility] Work Phone: Start: 11-07-2016 End: 01-13-2016 *Hepatic Function Panel *Hepatic Function Panel [facility] Work Phone: Start: 11-07-2016 End: 01-13-2016 Lipid panel [AGGREGATE] *Lipid Profile CC PCP [facility] Work Phone: Start: 06-02-2016 End: 06-02-2016 Ecg routine ecg w/least 12 lds w/i&r EKG (In office) [facility] Work Phone: Start: 06-02-2016 End: 06-02-2016 Electrocardiogram, complete EKG (In office) [facility] Work Phone: Start: 05-17-2016 End: 05-20-2016 *BMP *BMP [facility] Work Phone: Start: 05-17-2016 End: 05-20-2016 *BMP *BMP [facility] Work Phone: Start: 05-02-2016 End: 05-02-2016 Cardioversion Cardioversion [facility] Work Phone: Start: 05-02-2016 End: 05-02-2016 DJN DJN [facility] Work Phone: Start: 05-02-2016 End: 05-02-2016 Follow Up Appt 6 months Follow Up Appt 6 months [facility] Work Phone: Start: 05-02-2016 End: 05-06-2016 INR Coag [facility]Time (PPP) *PT/INR - Standing Order [facility] Work Phone: Start: 05-02-2016 End: 05-20-2016 Cardioversion Cardioversion [facility] Work Phone: Start: 05-02-2016 End: 05-06-2016 Coagulation factor induced.INR assay in platelet poor plasma *PT/INR - Standing Order [facility] Work Phone: Start: 05-02-2016 End: 05-02-2016 GERDA LORENZ [facility] Work Phone: Start: 05-02-2016 End: 05-02-2016 Follow Up Appt 6 months Follow Up Appt 6 months [facility] Work Phone: Start: 01-18-2016 End: 04-28-2016 GERDA LORENZ [facility] Work Phone: Start: 01-18-2016 End: 01-21-2016 Ecg routine ecg w/least 12 lds w/i&r EKG (In office) [facility] Work Phone: Start: 01-18-2016 End: 01-18-2016 Echocardiography Echocardiogram (complete) [facility] Work Phone: Start: 01-18-2016 End: 04-28-2016 Follow Up Appt 3 months Follow Up Appt 3 months [facility] Work Phone: Start: 01-18-2016 End: 01-18-2016 INR Coag RelTime (PPP) *PT/INR [facility] Work Phone: Start: 01-18-2016 End: 01-18-2016 Coagulation factor induced.INR assay in platelet poor plasma *PT/INR [facility] Work Phone: Start: 01-18-2016 End: 04-28-2016 GERDA LORENZ [facility] Work Phone: Start: 01-18-2016 End: 01-18-2016 Echocardiography Echocardiogram (complete) [facility] Work Phone: Start: 01-18-2016 End: 01-21-2016 Electrocardiogram, complete EKG (In office) [facility] Work Phone: Start: 01-18-2016 End: 04-28-2016 Follow Up Appt 3 months Follow Up Appt 3 months [facility] Work Phone: Start: 08-17-2015 End: 08-17-2015 GERDA LORENZ [facility] Work Phone: Start: 08-17-2015 End: 08-17-2015 Ecg routine ecg w/least 12 lds w/i&r EKG (In office) [facility] Work Phone: Start: 08-17-2015 End: 08-17-2015 Follow Up Appt 6 months Follow Up Appt 6 months [facility] Work Phone: Start: 08-17-2015 End: 08-17-2015 GERDA RAFAELShelli [facility] Work Phone: Start: 08-17-2015 End: 08-17-2015 Electrocardiogram, complete EKG (In office) [facility] Work Phone: Start: 08-17-2015 End: 08-17-2015 Follow Up Appt 6 months Follow Up Appt 6 months [facility] Work Phone: Start: 08-10-2015 End: 11-06-2015 *Hepatic Function Panel *Hepatic Function Panel [facility] Work Phone: Start: 08-10-2015 End: 11-06-2015 Lipid panel [AGGREGATE] *Lipid Profile CC PCP [facility] Work Phone: Start: 08-10-2015 End: 11-06-2015 *Hepatic Function Panel *Hepatic Function Panel [facility] Work Phone: Start: 08-10-2015 End: 11-06-2015 Lipid panel [AGGREGATE] *Lipid Profile CC PCP [facility] Work Phone: Start: 07-03-2015 End: 06-05-2015 Ecg routine ecg w/least 12 lds w/i&r EKG (In office) [facility] Work Phone: Start: 07-03-2015 End: 06-05-2015 Electrocardiogram, complete EKG (In office) [facility] Work Phone: Start: 06-19-2015 End: 06-22-2015 DJN DJN [facility] Work Phone: Start: 06-19-2015 End: 06-22-2015 Follow Up Appt 3 months Follow Up Appt 3 months [facility] Work Phone: Start: 06-19-2015 End: 06-22-2015 DJN [facility] Work Phone: Start: 06-19-2015 End: 06-22-2015 Follow Up Appt 3 months Follow Up Appt 3 months [facility] Work Phone: Start: 06-09-2015 End: 06-22-2015 Follow Up BP Check Follow Up BP Check [facility] Work Phone: Start: 06-09-2015 End: 06-22-2015 Follow Up BP Check Follow Up BP Check [facility] Work Phone: Start: 06-05-2015 End: 06-22-2015 *BMP *BMP [facility] Work Phone: Start: 06-05-2015 End: 06-05-2015 Cardioversion Cardioversion [facility] Work Phone: Start: 06-05-2015 End: 06-22-2015 Chest x-ray X-Ray, Chest, PA & Lateral [facility] Work Phone: Start: 06-05-2015 End: 06-05-2015 Ecg routine ecg w/least 12 lds w/i&r EKG (In office) [facility] Work Phone: Start: 06-05-2015 End: 06-18-2015 INR Coag RelTime (PPP) *PT/INR [facility] Work Phone: Start: 06-05-2015 End: 06-22-2015 *BMP *BMP [facility] Work Phone: Start: 06-05-2015 End: 06-05-2015 Cardioversion Cardioversion [facility] Work Phone: Start: 06-05-2015 End: 06-22-2015 Chest x-ray X-Ray, Chest, PA & Lateral [facility] Work Phone: Start: 06-05-2015 End: 06-18-2015 Coagulation factor induced.INR assay in platelet poor plasma *PT/INR [facility] Work Phone: Start: 06-05-2015 End: 06-05-2015 Electrocardiogram, complete EKG (In office) [facility] Work Phone: Start: 06-01-2015 End: 06-05-2015 Thyroid stimulating hormone (TSH) *TSH [facility] Work Phone: Start: 06-01-2015 End: 06-05-2015 Thyroxine (T4) *T4 (Total) [facility] Work Phone: Start: 06-01-2015 End: 06-05-2015 Thyroid stimulating hormone (TSH) *TSH [facility] Work Phone: Start: 06-01-2015 End: 06-05-2015 Thyroxine (T4) *T4 (Total) [facility] Work Phone: Start: 03-30-2015 End: 03-30-2015 Ecg routine ecg w/least 12 lds w/i&r EKG (In office) [facility] Work Phone: Start: 03-30-2015 End: 03-30-2015 Electrocardiogram, complete EKG (In office) [facility] Work Phone: Start: 02-09-2015 End: 02-10-2015 Cardiac Rehab Cardiac Rehab [address] [place], [address] [facility] Work Phone: Start: 02-09-2015 End: 02-09-2015 GERDA LORENZ [facility] Work Phone: Start: 02-09-2015 End: 02-09-2015 Follow Up Appt 6 months Follow Up Appt 6 months [facility] Work Phone: Start: 02-09-2015 End: 02-10-2015 Cardiac Rehab Cardiac Rehab [address] [place], [address] [facility] Work Phone: Start: 02-09-2015 End: 02-09-2015 GERDA LORENZ [facility] Work Phone: Start: 02-09-2015 End: 02-09-2015 Follow Up Appt 6 months Follow Up Appt 6 months [facility] Work Phone: Start: 02-03-2015 End: 02-06-2015 *Hepatic Function Panel *Hepatic Function Panel [facility] Work Phone: Start: 02-03-2015 [...] Thoracic Surgery Referral Jaycob Nunez, [address], [address] [facility] Work Phone: Start: 12-26-2014 End: 12-26-2014 Thoracic Surgery Referral Thoracic Surgery Referral Jaycob Nunez, [address] [place], [address] [facility] Work Phone: Start: 12-16-2014 End: 12-17-2014 *BMP *BMP [facility] Work Phone: Start: 12-16-2014 End: 12-16-2014 aPTT *PTT-Partial Thromboplastin Time [facility] Work Phone: Start: 12-16-2014 End: 12-16-2014 CBC W Auto Differential panel - Blood *CBC without Diff [facility] Work Phone: Start: 12-16-2014 End: 12-17-2014 Chest x-ray X-Ray, Chest, PA & Lateral [facility] Work Phone: Start: 12-16-2014 End: 12-16-2014 DJN DJN [facility] Work Phone: Start: 12-16-2014 End: 12-16-2014 Ecg routine ecg w/least 12 lds w/i&r EKG (In office) [facility] Work Phone: Start: 12-16-2014 End: 12-16-2014 Echocardiography Echocardiogram (complete) [facility] Work Phone: Start: 12-16-2014 End: 12-16-2014 Follow Up Appt 2 months Follow Up Appt 2 months [facility] Work Phone: Start: 12-16-2014 End: 12-16-2014 INR Coag RelTime (PPP) *PT/INR [facility] Work Phone: Start: 12-16-2014 End: 12-16-2014 Left & Right Heart Cath Left & Right Heart Cath [facility] Work Phone: Start: 12-16-2014 End: 12-16-2014 Transesophageal echocardiogram (CINTHIA) Transesophageal echocardiogram (CINTHIA) [facility] Work Phone: Start: 12-16-2014 End: 12-17-2014 *BMP *BMP [facility] Work Phone: Start: 12-16-2014 End: 12-16-2014 aPTT *PTT-Partial Thromboplastin Time [facility] Work Phone: Start: 12-16-2014 End: 12-16-2014 aPTT Coag time (PPP) *PTT-Partial Thromboplastin Time [facility] Work Phone: Start: 12-16-2014 End: 12-16-2014 CBC W Auto Differential panel - Blood *CBC without Diff [facility] Work Phone: Start: 12-16-2014 End: 12-17-2014 Chest x-ray X-Ray, Chest, PA & Lateral [facility] Work Phone: Start: 12-16-2014 End: 12-16-2014 Coagulation factor induced.INR assay in platelet poor plasma *PT/INR [facility] Work Phone: Start: 12-16-2014 End: 12-16-2014 DJN DJN [facility] Work Phone: Start: 12-16-2014 End: 12-16-2014 Echocardiography Echocardiogram (complete) [facility] Work Phone: Start: 12-16-2014 End: 12-16-2014 Electrocardiogram, complete EKG (In office) [facility] Work Phone: Start: 12-16-2014 End: 12-16-2014 Follow Up Appt 2 months Follow Up Appt 2 months [facility] Work Phone: Start: 12-16-2014 End: 12-16-2014 Left & Right Heart Cath Left & Right Heart Cath [facility] Work Phone: Start: 12-16-2014 End: 12-16-2014 Transesophageal echocardiogram (CINTHIA) Transesophageal echocardiogram (CINTHIA) [facility] Work Phone: Start: 07-21-2014 End: 08-04-2014 *Hepatic Function Panel *Hepatic Function Panel [facility] Work Phone: Start: 07-21-2014 End: 08-04-2014 Lipid panel [AGGREGATE] *Lipid Profile CC PCP [facility] Work Phone: Start: 07-21-2014 End: 08-04-2014 *Hepatic Function Panel *Hepatic Function Panel [facility] Work Phone: Start: 07-21-2014 End: 08-04-2014 Lipid panel [AGGREGATE] *Lipid Profile CC PCP [facility] Work Phone: Start: 07-07-2014 End: 07-07-2014 DJN DJN [facility] Work Phone: Start: 07-07-2014 End: 07-07-2014 Follow Up Appt 6 months Follow Up Appt 6 months [facility] Work Phone: Start: 07-07-2014 End: 07-07-2014 DJN DJN [facility] Work Phone: Start: 07-07-2014 End: 07-07-2014 Follow Up Appt 6 months Follow Up Appt 6 months [facility] Work Phone: Start: 06-03-2014 End: 06-03-2014 Echocardiography Echocardiogram (complete) [facility] Phone: Start: 06-02-2014 End: 06-02-2014 DJN DJN [facility] Work Phone: Start: 06-02-2014 End: 06-03-2014 Echocardiography Echocardiogram (complete) [facility] Phone: Start: 06-02-2014 End: 06-02-2014 Follow Up Appt 6 months Follow Up Appt 6 months [facility] Work Phone: Start: 06-02-2014 End: 06-02-2014 Stress Echocardiogram (treadmill) Stress Echocardiogram (treadmill) [facility] Work Phone: Start: 06-02-2014 End: 06-02-2014 Xtrnl mobile cv telemetry w/i&report 30 days 30 Day Holter Monitor [facility] Work Phone: Start: 06-02-2014 End: 06-02-2014 GERDA DJN [facility] Work Phone: Start: 06-02-2014 End: 06-02-2014 Echocardiography Echocardiogram (complete) [facility] Work Phone: Start: 06-02-2014 End: 06-02-2014 Follow Up Appt 6 months Follow Up Appt 6 months [facility] Work Phone: Start: 06-02-2014 End: 06-02-2014 Remote 30 day ecg rev/report 30 Day Holter Monitor [employer] Phone: Start: 06-02-2014 End: 06-02-2014 Stress Echocardiogram (treadmill) Stress Echocardiogram (treadmill) [facility] Work Phone: Start: 01-27-2014 End: 01-27-2014 DJN DJN [facility] Work Phone: Start: 01-27-2014 End: 01-27-2014 Echocardiography Echocardiogram (complete) [facility] Phone: Start: 01-27-2014 End: 01-27-2014 Follow Up Appt 1 year Follow Up Appt 1 year [facility] Work Phone: Start: 01-27-2014 End: 01-27-2014 DJN DJN [facility] Work Phone: Start: 01-27-2014 End: 01-27-2014 Echocardiography Echocardiogram (complete) [facility] Work Phone: Start: 01-27-2014 End: 01-27-2014 Follow Up Appt 1 year Follow Up Appt 1 year [facility] Work Phone: Start: 09-20-2013 End: 12-09-2013 *Hepatic Function Panel *Hepatic Function Panel [facility] Work Phone: Start: 09-20-2013 End: 12-09-2013 Lipid panel [AGGREGATE] *Lipid Profile CC PCP [facility] Work Phone: Start: 09-20-2013 End: 12-09-2013 *Hepatic Function Panel *Hepatic Function Panel [facility] Work Phone: Start: 09-20-2013 End: 12-09-2013 Lipid panel [AGGREGATE] *Lipid Profile CC PCP [facility] Work Phone: Start: 02-20-2013 End: 04-02-2013 *Hepatic Function Panel *Hepatic Function Panel [facility] Work Phone: Start: 02-20-2013 End: 04-02-2013 Lipid panel [AGGREGATE] *Lipid Profile CC PCP [facility] Work Phone: Start: 02-20-2013 End: 04-02-2013 *Hepatic Function Panel *Hepatic Function Panel [facility] Work Phone: Start: 02-20-2013 End: 04-02-2013 Lipid panel [AGGREGATE] *Lipid Profile CC PCP [facility] Work Phone: Start: 01-29-2013 End: 01-29-2013 RAFAELN DJN [facility] Work Phone: Start: 01-29-2013 End: 01-29-2013 Echocardiography Echocardiogram (complete) [facility] Work Phone: Start: 01-29-2013 End: 01-29-2013 Follow Up Appt 1 year Follow Up Appt 1 year [facility] Work Phone: Start: 01-29-2013 End: 01-29-2013 GERDA HALLN [facility] Work Phone: Start: 01-29-2013 End: 01-29-2013 Echocardiography Echocardiogram (complete) [facility] Work Phone: Start: 01-29-2013 End: 01-29-2013 Follow Up Appt 1 year Follow Up Appt 1 year [facility] Work Phone: Start: 08-08-2012 End: 08-29-2012 *Hepatic Function Panel *Hepatic Function Panel [facility] Work Phone: Start: 08-08-2012 End: 08-29-2012 Lipid panel [AGGREGATE] *Lipid Profile [facility] Work Phone: Start: 08-08-2012 End: 08-29-2012 *Hepatic Function Panel *Hepatic Function Panel [facility] Work Phone: Start: 08-08-2012 End: 08-29-2012 Lipid panel [AGGREGATE] *Lipid Profile [facility] Work Phone: Start: 01-25-2012 End: 06-22-2012 *Hepatic Function Panel *Hepatic Function Panel [facility] Work Phone: Start: 01-25-2012 End: 06-22-2012 Lipid panel [AGGREGATE] *Lipid Profile [facility] Work Phone: Start: 01-25-2012 End: 06-22-2012 *Hepatic Function Panel *Hepatic Function Panel [facility] Work Phone: Start: 01-25-2012 End: 06-22-2012 [...] End: 08-01-2011 Echocardiography Echocardiogram (complete) [facility] Work Phone: Start: 07-26-2011 End: 07-26-2011 Follow Up Appt 6 months Follow Up Appt 6 months [facility] Work Phone: Start: 07-26-2011 End: 08-01-2011 Echocardiography Echocardiogram (complete) [facility] Work Phone: Start: 07-26-2011 End: 07-26-2011 Follow Up Appt 6 months Follow Up Appt 6 months [facility] Work Phone: Start: 06-27-2011 End: 06-30-2011 *Hepatic Function Panel *Hepatic Function Panel [facility] Work Phone: Start: 06-27-2011 End: 06-30-2011 Lipid panel [AGGREGATE] *Lipid Profile [facility] Work Phone: Start: 06-27-2011 End: 06-30-2011 *Hepatic Function Panel *Hepatic Function Panel [facility] Work Phone: Start: 06-27-2011 End: 06-30-2011 Lipid panel [AGGREGATE] *Lipid Profile [facility] Work Phone: Start: 04-25-2011 End: 04-25-2011 INR Coag RelTime (PPP) *PT/INR [facility] Work Phone: Start: 04-25-2011 End: 04-25-2011 Coagulation factor induced.INR assay in platelet poor plasma *PT/INR [facility] Work Phone: 24 Hour ECG [facility] Alanine aminotransfe rase [Enzymatic activity/volume] in Serum or Plasma [facility] Aspartate aminotrans ferase [Enzymatic activity/volume] in Serum or Plasma [facility] Comprehensive metabo lic 2000 panel - Serum or Plasma [facility] DXA Bone [Mass/Area] Bone density [facility] Work Phone: Magnesium measurement [facility] Measurement of respi ratory function [facility] MG Breast - bilatera l Screening [facility] Work Phone: MR Lumbar spine [facility] Work Phone: Patient Education [facility] Work Phone: Patient referral [facility] Work Phone: Thyroid stimulating hormone measurement [facility] Heart limited [facility] Immunizations Immunization Date Immunization Notes Care Provider Fa cility 12-23-2021 Influenza, high dose seasonal Mireille Garnica MD Work Phone: [facility] 12-23-2021 influenza, high dose seasonal, preservative-free No Primary Care Physician [facility] 02-02-2021 influenza, injectabl e, quadrivalent, preservative free Dr. Marian Jackson Work Phone: [facility] 02-02-2021 influenza, seasonal, injectable Dr. Alfa Oakes Work Phone: [facility] 06-05-2020 Covid (Moderna) Dr. Alfa kraft Work Phone: [facility] 05-08-2020 Yoid (Moderna) Dr. Alfa kraft Work Phone: [facility] 12-27-2019 influenza, injectabl e, quadrivalent, preservative free Dr. Marian Jackson Work Phone: [facility] 12-27-2019 influenza, seasonal, injectable Dr. Alfa Oakes Work Phone: [facility] 12-20-2019 influenza, injectabl e, quadrivalent, preservative free Dr. Marian Jackson Work Phone: [facility] 12-20-2019 influenza, seasonal, injectable Dr. Alfa Oakes Work Phone: [facility] 12-07-2018 influenza, injectabl e, quadrivalent, preservative free Dr. Marian Jackson Work Phone: [facility] 12-07-2018 influenza, seasonal, injectable Dr. Alfa Oakes Work Phone: [facility] 11-29-[address] Alfa Oakes Work Phone: [facility] 12-07-2017 influenza, injectabl e, quadrivalent, preservative free Dr. Marian Jackson Work Phone: [facility] 12-07-2017 influenza, seasonal, injectable Dr. Alfa Oakes Work Phone: [facility] 12-07-2017 pneumococcal conjuga te vaccine, [address] Alfa Oakes Work Phone: [facility] 01-06-2017 influenza, injectabl e, quadrivalent, preservative free Dr. Marian Jackson Work Phone: [facility] 01-06-2017 influenza, seasonal, injectable Dr. Alfa Oakes Work Phone: [facility] 12-22-2015 influenza, injectabl e, quadrivalent, preservative free Dr. Marian Jackson Work Phone: [facility] 12-22-2015 influenza, seasonal, injectable Dr. Alfa Oakes Work Phone: [facility] 12-22-2014 influenza, injectabl e, quadrivalent, preservative free Dr. Marian Jackson Work Phone: [facility] 12-22-2014 influenza, seasonal, injectable Dr. Alfa Oakes Work Phone: [facility] 12-13-2012 influenza, injectabl e, quadrivalent, preservative free Dr. Marian Jackson Work Phone: [facility] 12-13-2012 influenza, seasonal, injectable Dr. Alfa Oakes Work Phone: [facility] 12-30-2011 influenza, injectabl e, quadrivalent, preservative free Dr. Marian Jackson Work Phone: [facility] 12-30-2011 influenza, seasonal, injectable Dr. Alfa Oakes Work Phone: [facility] Payers Date Payer Category Payer Unknown [id number] 2024 Private Health Insurance [id number] 2023 Self-pay [id number] 2020 Private Health Insurance [id number] 2016 Unknown [id number] 2003 Unknown [id number] 1941 Unknown [id number] 2.16.8 [id number] 1941 Unknown [id number] 2.16.8 40.1.233819.3.579.2.627 Unknown [id number] 2.16.8 40.1.825584.3.579.2.462 Unknown [id number] 2.16.8 40.1.840244.3.579.2.462 Unknown [id number] 2.16.8 40.1.909827.3.579.2.462 Unknown [id number] 2.16.8 40.1.190837.3.579.2.462 Unknown [id number] 2.16.8 40.1.497898.3.579.2.462 Unknown [id number] 2.16.8 40.1.845073.3.579.2.462 Unknown [id number] 2.16.8 40.1.906809.3.579.2.462 Unknown [id number] 2.16.8 40.1.997679.3.579.2.462 Unknown [id number] 2.16.8 40.1.383444.3.579.2.462 Unknown [id number] 2.16.8 40.1.885070.3.579.2.462 Unknown [id number] 2.16.8 40.1.034802.3.579.2.462 Unknown [id number] 2.16.8 40.1.994866.3.579.2.462 Unknown [id number] 2.16.8 40.1.575870.3.579.2.462 Unknown [id number] 2.16.8 40.1.935023.3.579.2.462 Unknown [id number] 2.16.8 40.1.957939.3.579.2.462 Unknown [id number] 2.16.8 40.1.997811.3.579.2.462 Unknown [id number] 2.16.8 40.1.024188.3.579.2.462 Unknown [id number] 2.16.8 40.1.998175.3.579.2.462 Unknown [id number] 2.16.8 40.1.284701.3.579.2.462 Unknown [id number] 2.16.8 40.1.493733.3.579.2.462 Unknown [id number] 2.16.8 40.1.076542.3.579.2.462 Unknown [id number] 2.16.8 40.1.906418.3.579.2.462 Unknown [id number] 2.16.8 40.1.399265.3.579.2.462 Unknown [id number] 2.16.8 40.1.238397.3.579.2.462 Unknown [id number] 2.16.8 40.1.421856.3.579.2.462 Unknown [id number] 2.16.8 40.1.669300.3.579.2.462 Unknown [id number] 2.16.8 40.1.284416.3.579.2.462 Unknown [id number] 2.16.8 40.1.175318.3.579.2.462 Social History Date Type Detail Facility Start: 12-21-2020 End: 01-17-2023 Tobacco smoking status HIIS Unknown if ever smoked [facility] Start: 12-28-2018 Non-smoker [facility] Start: 1940 Sex Assigned At Female [facility] Start: 05-07-2024 End: 05-22-2024 Tobacco smoking status NHIS Never smoked tobacco (finding) [facility] Start: 01-16-2015 End: 05-20-2024 Sex Female (finding) [facility] Sexual Orientation Bessy Fowler [facility] Medical Equipment Procedure Code Equipment Code Equipment [...] ic heart valve FDA Start: 07-12-2000 St Digeo prosthet ic heart valve FDA Start: 07-12-2000 St Diego prosthet ic heart valve FDA Start: 07-12-2000 [facility] [place] prosthet ic heart valve FDA Start: 07-12-2000 [facility] Diego prosthet ic heart valve FDA Start: 07-12-2000 [facility] [place] prosthet ic heart valve FDA Start: 07-12-2000 [facility] [place] prosthet ic heart valve FDA Start: 07-12-2000 [facility] Diego prosthet ic heart valve FDA Start: 07-12-2000 St Deigo prosthet ic heart valve FDA Start: 07-12-2000 [...] Facility 07-02-2024 Functional Status Room check performed [facility] 07-02-2024 Functional Status [facility] 07-02-2024 Functional Status [facility] 07-01-2024 Functional Status Hospital bed [facility] 07-01-2024 Functional Status Patient Identi fied Identification band, Verbal [facility] 07-01-2024 Functional Status Maintained [facility] 06-17-2024 Functional Status Sensory Deficits None A [facility] Mental Status Date Assessment Result Facility 07-02-2024 Mental Status Oriented x 4 [facility] 07-02-2024 Mental Status [facility] 07-01-2024 Mental Status Orientation Asse ssment Oriented x 4 [facility] 02-10-2024 Cognitive function Level Of Cons ciousness Awake;Alert;Appropriate [facility] Work Phone: Clinical Notes 07-12-2000 to 07-02-2024 [...] need to report the following to your tin flopper: ?Any draining or oozing from the site [...] Document Reviewed: 02/07/2014 ExitCare Patient Information 2015 [employer]. This information is not intended to replace advice given to you by your health care provider. Make sure you discuss any questions you have with your health care provider. Follow Up Care 05/22/2024 16:26:38 With:EMMANUEL DE LA CRUZ MD Address: [address] [place] [address] [address] [facility] [place] [address]- [phone] When:08/21/2024 14:45:00 [facility] 07-02-2024 Discharge summary Date of Service [...] CRUZ MD When:08/21/2024 02:45 PM EDT Where:[address] [facility] [address] [place] [address]- [phone] Follow Up Appointments No qualifying data available. [...] LA CRUZ MD on 07/02/2024 10:33 AM [facility] 07-02-2024 Summary of episod e note Discharge Instructions Thank you for allowing [facility] to assist you with your healthcare needs. The following is important discharge information regarding your hospital visit. Your Care Team MIREILLE GARNICA MD What to do next Scheduled Follow-Up Appointments Appointment Type When With Where Contact Information StatusCV OV 08/21/2024 02:45 PM EDT DIA DE LA CRUZ [facility] Confirmed Follow Up Appointments Follow Up with EMMANUEL DE LA CRUZ MD When:08/21/2024 02:45 PM EDT Where:[address] [facility] [place] [address]- [phone] Allergies Latex Rash penicillin Unknown Medications Please [...] need to report the following to your tin flopper: ? Any draining or oozing from the [...] Document Reviewed: 02/07/2014 ExitCare Patient Information 2015 [employer]. This information is not intended to replace advice given to you by your health care provider. Make sure you discuss any questions you have with your health care provider. Additional Information VACCINATE! IT SAVES LIVES! Members of the community who have not yet received the COVID-19 vaccine and would like to receive it can visit one of [facility] vaccine clinics. There are many vaccine clinic locations within the [facility]. For locations and available times, please visit [email or web address].o hio.gov/. It is important to note that some COVID mobile vaccine clinics are held outdoors and may be canceled in rainy or stormy conditions. To learn more about pediatric vaccinations (ages 5-11), we invite you to visit the [facility] webpage. [email or web address] To learn more about the COVID-19 vaccine, we invite you to visit the CDC website for a list of frequently asked questions.https://www.cdc.gov/co ronavirus/2019-ncov/vaccines/faq .html [facility] Patient Portal Access Instructions: Stay connected with your healthcare team and access your personal medical information anytime with the [facility] Patient Portal. Please follow the directions below to create your [facility] account: 1.Access the email account you provided upon registration to the hospital/physician office.2.Look for an invitation email from [facility].3.Open the email and access the invitation link: Accept Invitation to [facility].4.Fill in the required shaikh to create your account. To access your account, visit [email or web address]. Click the blue button labeled Access Patient [...] you will allow to register on the [facility] Patient Portal for access to your information. You can also access the [facility] Patient Portal on the [facility]ela. Simply click on Patient Portal and then log into your account. If you would like to receive a full copy of your medical records, please contact the [facility] Medical Records Department by calling [phone], Monday through Monday between 8 a.m. and [...] Call your local pharmacy or go to [email or web address] to find one close to you.3.Make use of household items: Use cat litter or old coffee grounds to dispose medications if other options are not available. Mix your drugs with these household products, seal them in an airtight container and throw it into the garbage. Call [facility]: [phone] to be sure your drugs can be [...] aware that I should contact my doctor. 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: Date/Time: Relationship to Patient: Witness Name/Signature: Date/Time: [facility] 07-02-2024 Note Exam Date Time Procedure Performing Provider Status 07/02/24 4:07 AM Electrocardiogram - EKG - CV TATIANA POE MD; Auth (Verified) ECG Final Report SINUS RHYTHM WITH FIRST DEGREE AV BLOCK LEFT ANTERIOR FASCICULAR BLOCK POOR R-WAVE PROGRESSION Electronic Signature: ALFA POE MD 07/02/2024 23:18:03 [id number] Anesthesiology Consult note Patient: DONNA NARANJO I [...] LINA ALCANTARA DO on 07/01/2024 07:47 PM [id number] Note* Exam Date Time Procedure Performing Provider Status 07/01/24 1:01 PM Ablation CV EMMANUEL DE LA CRUZ MD; Aut h (Verified) [id number] Anesthesiology Consult note Patient: DONNA NARANJO I [...] insufficiency with aortic stenosis / SNOMED CT 122560845 / Confirmed Cardiac catheterization / SNOMED CT 39777977 / Confirmed Dyspnea on effort / SNOMED CT [id number] / Confirmed Aortic valve replaced / SNOMED CT 3107336646 / Confirmed Mitral valve replaced / SNOMED CT 7951005514 / Confirmed Hyperlipidemia / SNOMED CT 87724426 / Confirmed Tachycardia / SNOMED CT 2733955823 / Confirmed Mitral valve prosthesis / SNOMED CT 28615103 / Confirmed Osteopenia / SNOMED CT 800158884 / Confirmed Palpitations / SNOMED CT [id number] / Confirmed Right hand dominant / SNOMED CT [id number] / Confirmed Resolved: Beta eloy identification / SNOMED CT 428596614 Resolved: Bleeding diathesis / SNOMED CT 857181006 Resolved: C. difficile diarrhea / SNOMED CT 4647290075, Active Problems (21) AF (atrial fibrillation) Aortic insufficiency with aortic stenosis Aortic valve replaced Arthritis Back pain Cardiac catheterization Cardiomyopathy Chronic systolic heart failure Dizziness Dyspnea on effort Hyperlipidemia Long-term use of aspirin therapy Mitral valve prosthesis Mitral valve replaced On anticoagulant therapy Osteopenia Palpitations Right hand dominant Tachyarrhythmia Tachycardia Wears partial dentures Histories Past Medical History: Active Mitral valve prosthesis (78712710) Comments: 01/20/2015 EST 17:31 LITO COLES APRN-RECONCILER normal functioning [facility] [place] MV inserted in 2000 Cardiac catheterization (59562383) Comments: 01/20/2015 EST 17:33 LITO COLES APRN-RECONCILER Normal coronary arteries 12/26/14 severe AI Palpitations ([id number]) Dyspnea on effort ([id number]) Osteopenia (831049672) Right hand dominant ([id number]) Resolved C. difficile diarrhea (4398757717): Resolved. Bleeding diathesis (674168548): Resolved. Comments: 01/20/2015 EST 17:35 EST - HERBLITO APRN-RECONCILER pt on Coumadin at home-being bridged with Lovenox and Heparin gtt; Beta eloy identification (799284753): Resolved. Family History: Patient was adopted. Emphysema of lung Brother Heart disease Mother Brother Aneurysm Brother Procedure history: Cataract extraction and implantation of intraocular lens (1785853100) in 2021 at 81 Years. Cardioversion (114858706) on 11/13/2020 at 79 Years. Aortic valve replacement and aortoplasty ([id number]) on 01/21/2015 at 74 Years. Comments: 01/22/2015 3:25 SERGIO Anthony 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, insertion of v - wire TPW's History of mitral valve replacement (4335134642) in 2000 at 60 Years. Cholecystectomy (25184257). ORIF - Open reduction and internal fixation of fracture (415546867). Comments: 06/17/2024 9:37 SERGIO Garcia right wrist ORIF - Open reduction and internal fixation of fracture (549395383). Comments: 06/17/2024 9:37 SERGIO Garcia right leg [...] Rate ApicalH 108 bpm (JULY 01 11:05) GPD884 mmHg (JULY 01 11:) DBP70 mmHg (JULY 01 11:05) General: Alert and oriented. Airway: Mallampati classification: II (soft palate, fauces, uvula visible). Dentition Evaluation: Intact. Respiratory: Lungs are clear to auscultation, Respirations are non-labored. Cardiovascular: Normal rate, Regular rhythm. Heart Sounds: Normal. Neurologic: Alert, Oriented. Review / Management Results review: No qualifying data available . Documentation reviewed: Current records. Assessment and Plan [place] [employer] Anesthesiologists (ASA) physical status classification: [...] LINA ALCANTARA DO on 07/01/2024 11:43 AM [facility] [id number] Note* Exam Date Time Procedure Performing Provider Status 07/01/24 11:37 AM Electrocardiogram - EKG - CV REVA POE MD; Auth (Verified) ECG Final Report ATRIAL FIBRILLATION WITH OCCASIONAL VENTRICULAR PREMATURE COMPLEXES LEFT ANTERIOR FASCICULAR BLOCK LEFT VENTRICULAR HYPERTROPHY AND ST-T CHANGE Electronic Signature: ALFA POE MD 07/02/2024 23:12:18 [facility] [id number] Evaluation note* Diagnosis Onset Date Resolution Status Admit Date RUIZ (dyspnea on exertion) acute June 28, 2024 10:51am History of mechanical aortic valve replacement January, acute June 28, 2024 10:51am History of mitral valve replacement with mechanical valve Jun, 2000 acute June 28, 2024 10 :51am Atrial fibrillation chronic June 282024 10:51am Hyperlipidemia chronic June 28 025 10:51am 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 chronic June 28 10:51am [facility] (current) 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 chronic June 28, 2024 10 :51am [facility] Work Phone: 1(673) 877-324105-09-2025 Evaluation note* Diagnosis Onset Date Resolution Status Admit Date RUIZ (dyspnea on exertion) acute June 28, 2024 10:51am History of mechanical aortic valve replacement January, acute June 28, 2024 10:51am History of mitral valve replacement with mechanical valve Jun, 2000 acute June 28, 2024 10 :51am Atrial fibrillation chronic June 282024 10:51am Hyperlipidemia chronic June 28 025 10:51am 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 chronic June 28 10:51am [facility] (current) 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 chronic June 28, [...] 2024 10:53am 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 chronic August 26 10:53am 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 chronic August 26, 2024 10:53am [facility] Work Phone: 1(952) 725-438805-09-2025 Evaluation note* Diagnosis Onset Date Resolution Status Admit Date RUIZ (dyspnea on exertion) acute June 28, 2024 10:51am History of mechanical aortic valve replacement January, acute June 28, 2024 10:51am History of mitral valve replacement with mechanical valve Jun, 2000 acute June 28, 2024 10 :51am Atrial fibrillation chronic June 282024 10:51am Hyperlipidemia chronic June 28 025 10:51am 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 chronic May 9th, 202 5 10:51am 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 chronic June 28, 2024 10 :51am RUIZ (dyspnea on exertion) acute August 26, 2024 10:53am History of mechanical aortic valve replacement January, acute August 26, 2024 10:53am History of mitral valve replacement with mechanical valve Jun, 2000 acute August 26, 2024 10:53am Renal insufficiency acute August 26, 2024 10:53am Atrial fibrillation chronic August 26, 2024 10:53am Hyperlipidemia chronic August 26, 2024 10:53am 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 chronic August 26 10:53am [facility] (current) 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 chronic August 26, 2024 10:53am [facility] Work Phone: 1(585) 282-592512-08-2023 Procedure [facility] 01-20-2015 Evaluation note* Diagnosis Onset Date Resolution Status Fatigue acute 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 current use of amiodarone acute Atrial flutter, paroxysmal c hronic H/O aortic valve replacement January 20, 2015 chronic H/O mitral valve replacement July 12, 2000 chronic Hyperlipidemia [facility] Work Phone: 1(815) 277-890212-01-2015 Evaluation note* Diagnosis Onset Date Resolution Status Encounter for routine gynecological examination noneactive History of mechanical aortic valve replacement 2014 acute History of mitral valve repl acement with mechanical valve Jun, 2000 acute Atrial flutter, paroxysmal c hronic Hyperlipidemia chronic 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 chronic 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 [facility] Work Phone: 1(482) 689-710212-01-2015 Evaluation note* Diagnosis Onset Date Resolution Status History of mechanical aortic valve replacement 2014 acute History of mitral valve repl acement with mechanical valve Jun, 2000 acute Atrial flutter, paroxysmal c hronic Hyperlipidemia chronic 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 chronic 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 [facility] Work Phone: 1(100) 430-670912-01-2015 Evaluation note* Diagnosis Onset Date Resolution Status Admit Date History of mechanical aortic valve replacement January, acute February 09, 2024 10:36am History of mitral valve replacement with mechanical valve Jun, 2000 acute February 08, 024 10:36am Atrial fibrillation chronic 2023 10:36am Hyperlipidemia chronic January 212023 10:36am 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 chronic January 10:36am 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 chronic February 08 10:36am History of mechanical aortic valve replacement January,April 11, 2024 10:04am History of mitral valve replacement with mechanical valve Jun, 2000April 11 10:04am Atrial fibrillation chronic 2024 10:04am Hyperlipidemia chronic March 242024 10:04am 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 chronic March 10:04am 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 April 11 10:04am [facility] Work Phone: 1(932) 428-409712-01-2015 Evaluation note* Diagnosis Onset Date Resolution Status Admit Date History of mechanical aortic valve replacement January,April 11, 2024 10:04am History of mitral valve replacement with mechanical valve Jun, 2000April 11 10:04am Atrial fibrillation 2024 10:04am Hyperlipidemia chronic March 242024 10:04am 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 chronic March 10:04am 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 chronic April 11 10:04am RUIZ (dyspnea on exertion) acute June 28, 2024 10:51am History of mechanical aortic valve replacement January, acute June 28, 2024 10:51am History of mitral valve replacement with mechanical valve Jun, 2000 acute June 28, 2024 10 :51am Atrial fibrillation chronic June 282024 10:51am Hyperlipidemia chronic June 28 10:51am 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 chronic June 28 10:51am 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 chronic June 28, 2024 10 :51am [facility] Work Phone: 1(815) 666-396805-23-2001 Evaluation note* Diagnosis Onset Date Resolution Status Bradycardia acute 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 current use of amiodarone acute Atrial flutter, paroxysmal c hronic Hyperlipidemia chronic H/O mitral valve replacement July 12, 2000 resolved Encounter for routine gynecological examination noneactive History of mechanical aortic valve replacement Dece r2014 acute History of mitral valve repl acement with mechanical valve Jun, 2000 acute Atrial flutter, paroxysmal c hronic Hyperlipidemia chronic 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 chronic [facility] (current) 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 chronic [facility] Work Phone: Evaluation + Plan note Future Appointments Appointment Date:07/01/2024 01:00:00 PM Scheduled Provider: Location:[facility] Appointment Type:EP Ablation PF-Ensite Appointment Date:08/21/2024 02:45:00 PM Scheduled Provider:DIA DE LA CRUZ Location:[facility] Appointment Type:[facility] Evaluation + Plan note Future Appointments Appointment Date:08/21/2024 02:45:00 PM Scheduled Provider:DIA DE LA CRUZ Location:[facility] Appointment Type:[facility] evaluation noteNo assessment information available [facility] Work Phone: evaluation note* Diagnosis Onset Date Resolution Status Elevated TSH acute Atrial flutter, paroxysmal c hronic Low back pain noneactive Establishing care with new doctor, encounter for noneactive Vaginal discharge noneactive [facility] Work Phone: evaluation note* Diagnosis Onset Date Resolution Status Elevated TSH acute Atrial flutter, paroxysmal c hronic Low back pain noneactive Establishing care with new doctor, encounter for noneactive Vaginal discharge noneactive Cystocele with uterine descensus acute Vulvar irritation noneactive Encounter for routine gynecological examination noneactive [facility] (current) 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 chronic Low back pain noneactive Right knee pain noneactive Post-traumatic headache none active Right hip pain noneactive Fall noneactive [facility] Work Phone: evaluation note* Diagnosis Onset Date Resolution Status Elevated TSH acute Atrial flutter, paroxysmal c hronic Low back pain noneactive Establishing care with new doctor, encounter for noneactive Vaginal discharge noneactive Cystocele with uterine descensus acute Vulvar irritation noneactive Encounter for routine gynecological examination noneactive [facility] (current) 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 chronic Low back pain noneactive Right knee pain noneactive Post-traumatic headache none active Right hip pain noneactive Fall noneactive Chondrocalcinosis of knee [place] Degenerative joint disease of right hip acute Greater trochanteric bursitis acute IT band syndrome acute Lumbar degenerative disc disease acute Right knee DJD acute [facility] Work Phone: evaluation note* Diagnosis Onset Date Resolution Status Elevated TSH acute Atrial flutter, paroxysmal c hronic Low back pain noneactive Establishing care with new [place], encounter for noneactive Vaginal discharge noneactive Cystocele with uterine descensus acute Vulvar irritation noneactive Encounter for routine gyneco logical examination noneactive [facility] (current) 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 chronic Low back pain noneactive Right knee pain noneactive Post-traumatic headache none active Right hip pain noneactive Fall noneactive Chondrocalcinosis of knee [place] Degenerative joint disease of right hip acute Greater trochanteric bursitis acute IT band syndrome acute Lumbar degenerative disc disease acute Right knee DJD acute Fatigue acute [facility] current use of amiodarone acute Atrial flutter, paroxysmal c hronic Hyperlipidemia chronic Lightheadedness chronic H/O aortic valve replacement January 20, 2015 resolved H/O mitral valve replacement July 12, 2000 resolved [facility] Work Phone: Evaluation note* Diagnosis Onset Date Resolution Status Cystocele with uterine descensus acute Vulvar irritation noneactive Encounter for routine gyneco logical examination noneactive [facility] (current) 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 chronic Low back pain noneactive Right knee pain noneactive Post-traumatic headache none active Right hip pain noneactive Fall noneactive Chondrocalcinosis of knee [place] Degenerative joint disease of right hip acute Greater trochanteric bursitis acute IT band syndrome acute Lumbar degenerative disc disease acute Right knee DJD acute Fatigue acute 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 current use of amiodarone acute Atrial flutter, paroxysmal c hronic Hyperlipidemia chronic Lightheadedness chronic H/O aortic valve replacement January 20, 2015 resolved H/O mitral valve replacement July 12, 2000 resolved Elevated TSH acute Lumbar degenerative disc disease acute Atrial flutter, paroxysmal c hronic Macrocytic anemia noneactive Vaginal discharge noneactive Bilateral leg weakness nonea ctive [facility] Work Phone: Evaluation note* Diagnosis Onset Date Resolution Status Cystocele with uterine descensus acute Vulvar irritation noneactive Encounter for routine gynecological examination noneactive 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 chronic Low back pain noneactive Right knee pain noneactive Post-traumatic headache none active Right hip pain noneactive Fall noneactive Chondrocalcinosis of knee [place] Degenerative joint disease of right hip acute Greater trochanteric bursitis acute IT band syndrome acute Lumbar degenerative disc disease acute Right knee DJD acute Fatigue acute 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 current use of amiodarone acute Atrial flutter, paroxysmal c hronic Hyperlipidemia chronic Lightheadedness chronic H/O mitral valve replacement July 12, 2000 resolved Elevated TSH acute Lumbar degenerative disc disease acute Atrial flutter, paroxysmal c hronic Macrocytic anemia noneactive Vaginal discharge noneactive Bilateral leg weakness nonea ctive Dyspnea on exertion acute Fatigue acute [facility] current use of amiodarone acute Atrial flutter, paroxysmal c hronic Hyperlipidemia chronic H/O mitral valve replacement July 12, 2000 resolved Sacroiliitis acute [facility] Work Phone: Evaluation note* Diagnosis Onset Date Resolution Status 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 chronic Low back pain noneactive Right knee pain noneactive Post-traumatic headache none active Right hip pain noneactive Fall noneactive Chondrocalcinosis of knee [place] Degenerative joint disease of right hip acute Greater trochanteric bursitis acute IT band syndrome acute Lumbar degenerative disc disease acute Right knee DJD acute Fatigue acute [facility] current use of amiodarone acute Atrial flutter, paroxysmal c hronic Hyperlipidemia chronic Lightheadedness chronic H/O mitral valve replacement July 12, 2000 resolved Elevated TSH acute Lumbar degenerative disc disease acute Atrial flutter, paroxysmal c hronic Macrocytic anemia noneactive Vaginal discharge noneactive Bilateral leg weakness nonea ctive Dyspnea on exertion acute Fatigue acute [facility] current use of amiodarone acute Atrial flutter, paroxysmal c hronic Hyperlipidemia chronic H/O mitral valve replacement July 12, 2000 resolved Sacroiliitis acute [facility] Work Phone: Evaluation note* Diagnosis Onset Date Resolution Status Chondrocalcinosis of knee [place] Degenerative joint disease of right hip acute Greater trochanteric bursitis acute IT band syndrome acute Lumbar degenerative disc disease acute Right knee DJD acute Fatigue acute 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 current use of amiodarone acute Atrial flutter, paroxysmal c hronic Hyperlipidemia chronic Lightheadedness chronic H/O mitral valve replacement July 12, 2000 resolved Elevated TSH acute Lumbar degenerative disc disease acute Atrial flutter, paroxysmal c hronic Macrocytic anemia noneactive Vaginal discharge noneactive Bilateral leg weakness nonea ctive Dyspnea on exertion acute Fatigue acute [facility] current use of amiodarone acute Atrial flutter, paroxysmal c hronic Hyperlipidemia chronic H/O mitral valve replacement July 12, 2000 resolved Sacroiliitis acute [facility] Work Phone: Evaluation note* Diagnosis Onset Date Resolution Status Fatigue acute 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 current use of amiodarone acute Atrial flutter, paroxysmal c hronic Hyperlipidemia chronic Lightheadedness chronic H/O mitral valve replacement July 12, 2000 resolved Elevated TSH acute Lumbar degenerative disc disease acute Atrial flutter, paroxysmal c hronic Macrocytic anemia noneactive Vaginal discharge noneactive Bilateral leg weakness nonea ctive Dyspnea on exertion acute Fatigue acute 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 current use of amiodarone acute Atrial flutter, paroxysmal c hronic Hyperlipidemia chronic H/O mitral valve replacement July 12, 2000 resolved Sacroiliitis acute [facility] Work Phone: Evaluation note* Diagnosis Onset Date Resolution Status Elevated TSH acute Lumbar degenerative disc disease acute Atrial flutter, paroxysmal c hronic Macrocytic anemia noneactive Vaginal discharge noneactive Bilateral leg weakness nonea ctive Dyspnea on exertion acute Fatigue acute 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 current use of amiodarone acute Atrial flutter, paroxysmal c hronic Hyperlipidemia chronic H/O mitral valve replacement July 12, 2000 resolved Sacroiliitis acute [facility] Work Phone: Evaluation note* Diagnosis Onset Date Resolution Status Dyspnea on exertion acute Fatigue acute [facility] current use of amiodarone acute Atrial flutter, paroxysmal c hronic Hyperlipidemia chronic H/O mitral valve replacement July 12, 2000 resolved Sacroiliitis acute [facility] Work Phone: Evaluation note* Diagnosis Onset Date Resolution Status Bradycardia acute Fatigue acute [facility] current use of amiodarone acute Atrial flutter, paroxysmal c hronic Hyperlipidemia chronic H/O mitral valve replacement July 12, 2000 resolved [facility] Work Phone: Evaluation note* Diagnosis Onset Date Resolution Status Bradycardia acute Fatigue acute [facility] current use of amiodarone acute Atrial flutter, paroxysmal c hronic Hyperlipidemia chronic H/O mitral valve replacement July 12, 2000 resolved Lichen sclerosus acute Encounter for routine gynecological examination noneactive [facility] Work Phone: Hospital course Narrative No data available for this section [facility] Hospital Discharge instructions No data available for this section [facility] Progress note No data available for this section [facility] Reason for referral (narrative)No reason for referral [facility]: Summary Purpose Family History Relationship Condition Age at Onset Recorded Date/T hardeep Not Specified Adopted Unknown Advance Directives Advance Directive Response Recorded Date/ Time Advance Directives No October 10:46am Living Will No November 13, 2020 10:46am Power of Aircraft Electrician No October 10:46am Advance Directive Response Recorded Date/ Time Advance Directives No June 08, 2 022 2:07pm Living Will No June 08, 2021 2:07pm Power of Aircraft Electrician No June 08 2:07pm Advance Directive Response Recorded Date/ Time Advance Directives No June 08, 2 022 1:07pm Living Will No June 08, 2021 1:07pm Power of Aircraft Electrician No June 08 1:07pm Advance Directive Response Recorded Date/ Time Advance Directives No March 09, 2022 1:08pm Living Will No March 09 1:08pm Power of Aircraft Electrician No March 09, 2022 1:08pm Advance Directive Response Recorded Date/ Time Advance Directives No March 09, 2022 2:08pm Living Will No March 09 2:08pm Power of Aircraft Electrician No March 09, 2022 2:08pm Advance Directive Response Recorded Date/ Time Advance Directives No May 07 2 025 1:05pm Living Will No February 20 5:26am Do you have a Healthcare Power of Aircraft Electrician? No February 21, 2024 5:26am Living Will No March 23 3:00am Do you have a Healthcare Power of Aircraft Electrician? No March 23, 2024 3:00am Living Will No April 20, 2024 5:52am Do you have a Healthcare Power of Aircraft Electrician? No April 20, 2024 5:52am Living Will No March 09 2:08pm Do you have a Healthcare Power of Aircraft Electrician? No March 09, 2022 2:08pm Living Will No February 09 024 2:13am Do you have a Healthcare Power of Aircraft Electrician? No February 10, 2024 2:13am Advance Directive Response Recorded Date/ Time Advance Directives No May 07, 2 025 1:05pm Living Will No March 23 3:00am Do you have a Healthcare Power of Aircraft Electrician? No March 23, 2024 3:00am Living Will No April 20, 2024 5:52am Do you have a Healthcare Power of Aircraft Electrician? No April 20, 2024 5:52am Living Will No May 20, 2024 10:15pm Do you have a Healthcare Power of Aircraft Electrician? No May 20, 2024 10:15pm Living Will No June 19, 2024 9:34pm Do you have a Healthcare Power of Aircraft Electrician? No June 19, 2024 9:34pm Advance Directive Response Recorded Date/ Time Advance Directives No May 07 025 1:05pm Living Will No April 20, 2024 5:52am Do you have a Healthcare Power of Aircraft Electrician? No April 20, 2024 5:52am Living Will No May 20, 2024 10:15pm Do you have a Healthcare Power of Aircraft Electrician? No May 20, 2024 10:15pm Living Will No July 20, 2024 1 0:10pm Do you have a Healthcare Power of Aircraft Electrician? No July 20, 2024 10:10pm Living Will No June 19, 2024 9:34pm Do you have a Healthcare Power of Aircraft Electrician? No June 19, 2024 9:34pm Advance Directive Response Recorded Date/ Time Living Will No May 20, 2024 10:15pm Do you have a Healthcare Power of Aircraft Electrician? No May 20, 2024 10:15pm Living Will No July 20, 2024 1 0:10pm Do you have a Healthcare Power of Aircraft Electrician? No July 20, 2024 10:10pm Living Will No June 19, 2024 9:34pm Do you have a Healthcare Power of Aircraft Electrician? 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 CARE NEEDS PPW S/O ABNORMAL BLEEDING S/O Reason for Visit Elevated TSH Atrial flutter, paroxysmal Low back pain Establishing care with new doctor, encounter for Vaginal discharge Chief Complaint S/O S/O SALES TRAINEE, EST. CARE NEEDS PPW S/O ABNORMAL BLEEDING S/O Annual ([employer]) HURT BACK AND RIGHT THIGH FROM FALL S/O FALL, HEADACHE, ON WARFARIN Reason for Visit Elevated TSH Atrial flutter, paroxysmal Low back pain Establishing care with new doctor, encounter for Vaginal discharge Cystocele with uterine descensus Vulvar irritation Encounter for routine gynecological examination [facility] (current) 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 Low back pain Right knee pain Post-traumatic headache Right hip pain Fall Chief Complaint S/O S/O SALES TRAINEE, EST. CARE NEEDS PPW S/O ABNORMAL BLEEDING S/O Annual ([employer]) HURT BACK AND RIGHT THIGH FROM FALL S/O FALL, HEADACHE, ON WARFARIN right leg pain SCREENING/POST EUN IT BAND UNSPECIFIED. 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 CARE NEEDS PPW S/O ABNORMAL BLEEDING S/O Annual ([employer]) HURT BACK AND RIGHT THIGH FROM FALL FALL, HEADACHE, ON WARFARIN right leg pain SCREENING/POST EUN IT BAND UNSPECIFIED. RX HERE S/O Reason for Visit Elevated TSH Atrial flutter, paroxysmal Low back pain Establishing care with new doctor, encounter for Vaginal discharge Cystocele with uterine descensus Vulvar irritation Encounter for routine gynecological examination [facility] (current) 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 Low back pain Right knee pain Post-traumatic headache Right hip pain Fall Chondrocalcinosis of knee Degenerative joint disease of right hip Greater trochanteric bursitis IT band syndrome Lumbar degenerative disc disease Right knee DJD Chief Complaint SALES TRAINEE, EST. CARE NEEDS PPW S/O ABNORMAL BLEEDING S/O Annual ([employer]) HURT BACK AND RIGHT THIGH FROM FALL FALL, HEADACHE, ON WARFARIN right leg pain SCREENING/POST EUN S/O 6 M FU IT BAND UNSPECIFIED. RX HERE LIGHTHEADEDNESS, LT CAROTID STENOSIS LIGHTHEADEDNESS/DIZZINESS S/O Reason for Visit Elevated TSH Atrial flutter, paroxysmal Low back pain Establishing care with new doctor, encounter for Vaginal discharge Cystocele with uterine descensus Vulvar irritation Encounter for routine gynecological examination [facility] (current) 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 Low back pain Right knee pain Post-traumatic headache Right hip pain Fall Chondrocalcinosis of knee Degenerative joint disease of right hip Greater trochanteric bursitis IT band syndrome Lumbar degenerative disc disease Right knee DJD Fatigue [facility] current use of amiodarone Atrial flutter, paroxysmal Hyperlipidemia Lightheadedness H/O aortic valve replacement H/O mitral valve replacement Chief Complaint SALES TRAINEE, EST. CARE NEEDS PPW S/O ABNORMAL BLEEDING S/O Annual ([employer]) HURT BACK AND RIGHT 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 current use of amiodarone Atrial flutter, paroxysmal Hyperlipidemia Lightheadedness H/O aortic valve replacement H/O mitral valve replacement Elevated TSH Lumbar degenerative disc disease Atrial flutter, paroxysmal Macrocytic anemia Vaginal discharge Bilateral leg weakness Chief Complaint Annual ([employer]) HURT BACK AND RIGHT THIGH FROM FALL [...] Vulvar irritation Encounter for routine gynecological examination 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 Low back pain Right knee pain Post-traumatic headache Right hip pain Fall Chondrocalcinosis of knee Degenerative joint disease of right hip Greater trochanteric bursitis IT band syndrome Lumbar degenerative disc disease Right knee DJD Fatigue [facility] current use of amiodarone Atrial flutter, paroxysmal Hyperlipidemia Lightheadedness H/O mitral valve replacement Elevated TSH Lumbar degenerative disc disease Atrial flutter, paroxysmal Macrocytic anemia Vaginal discharge Bilateral leg weakness Dyspnea on exertion 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 current use of amiodarone Atrial flutter, paroxysmal [...] STENOSIS Rm 5 xray Reason for Visit [facility] (current) 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 Low back pain Right knee pain Post-traumatic headache Right hip pain Fall Chondrocalcinosis of knee Degenerative joint disease of right hip Greater trochanteric bursitis IT band syndrome Lumbar degenerative disc disease Right knee DJD Fatigue [facility] current use of amiodarone Atrial flutter, paroxysmal Hyperlipidemia Lightheadedness H/O mitral valve replacement Elevated TSH Lumbar degenerative disc disease Atrial flutter, paroxysmal Macrocytic anemia Vaginal discharge Bilateral leg weakness Dyspnea on exertion 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 current use of amiodarone Atrial flutter, paroxysmal [...] degenerative disc disease Right knee DJD 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 current use of amiodarone Atrial flutter, paroxysmal Hyperlipidemia Lightheadedness H/O mitral valve replacement Elevated TSH Lumbar degenerative disc disease Atrial flutter, paroxysmal Macrocytic anemia Vaginal discharge Bilateral leg weakness Dyspnea on exertion Fatigue [facility] current use of amiodarone Atrial flutter, paroxysmal Hyperlipidemia H/O mitral valve replacement Sacroiliitis Chief Complaint S/O R/S 3 M FU 30 DAY MONITOR S/O CHRONIC BACK PAIN 6 wk fu E ORDERS SPINAL STENOSIS Rm 5 xray PROFESSOR OF GEOGRAPHY DRUG THERAPY Amb Documentation S/O S/O Reason for Visit Elevated TSH Lumbar degenerative disc disease Atrial flutter, paroxysmal Macrocytic anemia Vaginal discharge Bilateral leg weakness Dyspnea on exertion Fatigue [facility] current use of amiodarone Atrial flutter, paroxysmal Hyperlipidemia H/O mitral valve replacement Sacroiliitis Chief Complaint S/O CHRONIC BACK PAIN 6 wk fu E ORDERS SPINAL STENOSIS Rm 5 xray PROFESSOR OF GEOGRAPHY DRUG THERAPY Amb Documentation S/O S/O S/O Reason for Visit Dyspnea on exertion Fatigue [facility] current use of amiodarone Atrial flutter, paroxysmal Hyperlipidemia H/O mitral valve replacement Sacroiliitis Chief Complaint PROFESSOR OF GEOGRAPHY DRUG THERA PY Amb Documentation S/O S/O S/O S/O Chief Complaint S/O S/O S/O S/O 1 Y FU// PREV PFM Reason for Visit Bradycardia 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 current use of amiodarone Atrial flutter, paroxysmal Hyperlipidemia H/O mitral valve replacement Chief Complaint S/O S/O S/O 1 Y FU// PREV PFM S/O E ORDER Reason for Visit Bradycardia 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 current use of amiodarone Atrial flutter, paroxysmal Hyperlipidemia H/O mitral valve replacement Chief Complaint S/O S/O 1 Y FU// PREV PFM S/O E ORDER Annual ([employer]) S/O SCREEN Reason for Visit Bradycardia Fatigue [facility] current use of amiodarone Atrial flutter, paroxysmal Hyperlipidemia H/O mitral valve replacement Lichen sclerosus Encounter for routine gynecological examination Chief Complaint S/O S/O 1 Y FU// PREV PFM S/O E ORDER Annual ([employer]) SCREEN S/O Reason for Visit Bradycardia 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 current use of amiodarone Atrial flutter, paroxysmal Hyperlipidemia H/O mitral valve replacement Lichen sclerosus Encounter for routine gynecological examination Chief Complaint S/O 1 Y FU// PREV PFM S/O E ORDER Annual ([employer]) SCREEN S/O S/O 3 M FU E-ORDER Reason for Visit Bradycardia 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 current use of amiodarone Atrial flutter, paroxysmal Hyperlipidemia H/O mitral valve replacement Encounter for routine gynecological examination History of mechanical aortic valve replacement History of mitral valve replacement with mechanical valve Atrial flutter, paroxysmal Hyperlipidemia 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 Chief Complaint 1 Y FU// PREV PFM S/O E ORDER Annual ([employer]) SCREEN S/O S/O 3 M FU E-ORDER S/O Dyspnea, unspecified Dyspnea, unspecified Reason for Visit Bradycardia [facility] current use of amiodarone Atrial flutter, paroxysmal Hyperlipidemia H/O mitral valve replacement Encounter for routine gynecological examination History of mechanical aortic valve replacement History of mitral valve replacement with mechanical valve Atrial flutter, paroxysmal Hyperlipidemia 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 [facility] (current) 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 Chief Complaint Annual ([employer]) SCREEN S/O S/O 3 M FU E-ORDER Dyspnea, unspecified Dyspnea, unspecified S/O S/O Reason for Visit Encounter for routin e gynecological examination History of mechanical aortic valve replacement History of mitral valve replacement with mechanical valve Atrial flutter, paroxysmal Hyperlipidemia 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 Chief Complaint S/O 3 M FU E-ORDER Dyspnea, unspecified Dyspnea, unspecified S/O S/O S/O Reason for Visit History of mechanica l aortic valve replacement History of mitral valve replacement with mechanical valve Atrial flutter, paroxysmal Hyperlipidemia 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 [facility] (current) 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 Chief Complaint Dyspnea, [...] 2024 10:36am 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 February 09, 2024 10:36am 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) use of anticoagulant s February 09, 2024 10:36am History of mechanical aortic valve repla cement April 11, 2024 10:04am History of mitral valve replacement with mechanical valve April 11, 2024 10:04am Atrial fibrillation April 11, 2024 10:04am Hyperlipidemia April 11, 2024 10:04am 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 April 11, 2024 10:04am [facility] (current) use of anticoagulant s April 11, [...] 2024 10:04am 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 April 11, 2024 10:04am [facility] (current) use of anticoagulant s April 11, 2024 10:04am RUIZ (dyspnea on exertion) June 28, 2024 10:51am History of mechanical aortic valve repla cement June 28, 2024 10:51am History of mitral valve replacement with mechanical valve June 28, 2024 10:51am Atrial fibrillation June 28, 2024 10:51a m Hyperlipidemia June 28, 2024 10:51a m 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 June 28, 2024 10:51a m [facility] (current) use of anticoagulant s June 28, [...] m 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 June 28, 2024 10:51a m [facility] (current) use of anticoagulant s June 28, [...] MAGDY LOUIE 07/05/24 August 13, 2024 12:27pm S/O/ADDITL EOGIRMA LOUIE 07/05/24 August 21, 2024 12:42pm 2 [...] m 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 June 28, 2024 10:51a m [facility] (current) use of anticoagulant s June 28, [...] am 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 August 26, 2024 10:53 am 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) use of anticoagulant s August 26, 2024 10:53am Chief Complaint Admit Date S/O June 07, 2024 10: 25am 6 M FU June 28, 2024 10:51a m S/O/ADDITL MAGDY LOUIE 07/05/24 July 12, 2024 1:00pm EORDER July 19, 2024 1:17p m S/O/ADDITL MAGDY LOUIE 07/05/24 August 13, 2024 12:27pm 2 M FU August 26, 2024 10:53 am S/O September 03, 2024 11:0 5am RE-EVALUATE EF September 10, 2024 6:50 am Reason for Visit Admit Date RUIZ (dyspnea on exertion) June 28, 2024 10:51am History of mechanical aortic valve repla cement June 28, 2024 10:51am History of mitral valve replacement with mechanical valve June 28, 2024 10:51am Atrial fibrillation June 28, 2024 10:51a m Hyperlipidemia June 28, 2024 10:51a m 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 June 28, 2024 10:51a m 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) use of anticoagulant s June 28, 2024 10:51am RUIZ (dyspnea on exertion) August 26, 2024 10:53am History of mechanical aortic valve repla cement August 26, 2024 10:53am History of mitral valve replacement with mechanical valve August 26, 2024 10:53am Renal insufficiency August 26, 2024 10:53 am Atrial fibrillation August 26, 2024 10:53 am Hyperlipidemia August 26, 2024 10:53 am 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 August 26, 2024 10:53 am [facility] (current) use of anticoagulant s August 26, 2024 10:53am Additional Source Comments INFORMATION SOURCE (unrecogn ized section and content) DATE CREATED AUTHOR 08/16/2017 [facility] DATE CREATED AUTHOR AUTHOR'S ORGANIZ ATION 07/09/2024 [facility] DATE CREATED AUTHOR AUTHOR'S ORGANIZ ATION 09/16/2024 [facility] Goals (unrecognized section and content) Goals [...] Inactive Member Role Status Dates [employer] SALES TRAINEE, SALES TRAINEE-C Attending Provider, Referring Pro vider Active Dr. [...] Care Physician Referring Provider Active [employer] SALES TRAINEE, SALES TRAINEE-C Attending Provider Active Dr. Marian Jackson MD Primary Care Provider Active Team Status: Active Member Role Status Dates Dr. Marian Jackson MD Primary Care Provider, Attendi ng Provider Active Team Status: Inactive Member Role Status Dates Dr. Marian Jackson MD Primary Care Provider Active [employer] SALES TRAINEE, SALES TRAINEE-C Attending Provider, Referring Pro vider Active Dr. Kylah Santizo MD Other Provider Active Team Status: Active Member Role Status Dates Dr. Marian Jackson MD Primary Care Provider Active [employer] SALES TRAINEE, SALES TRAINEE-C Attending Provider, Referring Pro vider Active Dr. [...] MD Primary Care Provider Active [employer] SALES TRAINEE, SALES TRAINEE-C Other Provider Active Team Status: Active Member Role Status Dates Dr. Marian Jackson MD Primary Care Provider Active Dr. Joey Martines MD Attending Provider Active Team Status: Active Member Role Status Dates Dr. Marian Jackson MD Primary Care Provider Active [employer] SALES TRAINEE, SALES TRAINEE-C Attending Provider Active Team Status: Inactive Member Role Status Dates Dr. Marian Jackson MD Primary Care Provider Active [employer] SALES TRAINEE, SALES TRAINEE-C Attending Provider, Referring Pro vider Active Team Status: Inactive Member Role Status Dates No Primary Care Physician Referring Provider Active Beth Condon SALES TRAINEE, SALES TRAINEE-C Attending Provider Active Dr. Marian Jackson MD Primary Care Provider Active Team Status: Inactive Member Role Status Dates Dr. Marian Jackson MD Primary Care Pro vider, Attending Provider, Referring Provider Active Team Status: Inactive Member Role Status Dates Dr. Marian Jackosn MD Primary Care Provider, Referri ng Provider Active Dr. Hossein Lee DO Attending Provider Active Team Status: Active Member Role Status Dates Dr. Marian Jackson MD Primary Care Provider Active Dr. Reggie Garcia MD Attending Provider Active [employer] SALES TRAINEE, SALES TRAINEE-C Referring Provider Active Team Status: Inactive Member Role Status Dates Dr. Marian Jackson MD Primary Care Provider, Referri ng Provider Active [employer] SALES TRAINEE, SALES TRAINEE-C Attending Provider Active Team Status: Inactive Member Role Status Dates Dr. Marian Jackson MD Primary Care Provider, Referri ng Provider Active Dr. Tunde Monet DO Attending Provider Active Team Status: Inactive Member Role Status Dates Dr. Mraian Jackson MD Primary Care Provider Active Dr. Alex Sol MD Attending Provider Active Team Status: Inactive Member Role Status Dates Dr. Joey Martines MD Attending Provider, Referring Provider Active Dr. Marian Jackson MD Primary Care Provider Active Team Status: Inactive Member Role Status Dates Dr. Marian Jackson MD Primary Care Provider Active Beth Condon SALES TRAINEE, SALES TRAINEE-C Attending Provider Active Team Status: Inactive Member Role Status Dates Dr. Marian Jackson MD Primary Care Provider Active Dr. Hossein Lee DO Attending Provider, Referring Provider Active Team Status: Active Member Role Status Dates Dr. Marian Jackson MD Primary Care Provider Active [employer] SALES TRAINEE, SALES TRAINEE-C Attending Provider, Referring Pro vider Active Team Status: Active Member Role Status Dates Dr. Joey Martines MD Attending Provider, Referring Provider Active Dr. Marian Jackson MD Primary Care Provider Active [employer] SALES TRAINEE, SALES TRAINEE-C Other Provider Active Team Status: Active Member Role Status Dates Dr. Marian Jackson MD Primary Care Provider Active Dr. Joey Martnies MD Attending Provider Active Chante Cao PA, PA Referring Provider Active Team Status: Inactive Member Role Status Dates Dr. Marian Jackson MD Referring Provider Active Beth Condon SALES TRAINEE, SALES TRAINEE-C Attending Provider Active Dee Azevedo DO Primary Care Provider Active Team Status: Active Member Role Status Dates [employer] SALES TRAINEE, SALES TRAINEE-C Attending Provider, Referring Pro vider Active Dr. Kylah Santizo MD Other Provider Active Dee Azevedo DO Primary Care Provider Active Team Status: Inactive Member Role Status Dates Dee Azevedo DO Primary Care Provider Active Beth Condon SALES TRAINEE, SALES TRAINEE-C Attending Provider, Referring Provider Active Team Status: Inactive Member Role Status Dates Dee Azevedo DO Primary Care Provider, Referring Provider Active Dr. Kylah Santizo MD Attending Provider Active Team Status: Active Member Role Status Charles Garnica MD Primary Care Provider Active Team Status: Inactive Member Role Status Dates Mireille Garnica MD Primary Care Provider Active St art: February 09, 2024 End: February 09, 2024 Mireille Garnica MD Referring Provider Active Start : February 09, 2024 End: February 09, 2024 [employer] SALES TRAINEE, SALES TRAINEE-C Attending Provider Active S tart: February 09, 2024 End: February 09, 2024 Team Status: Inactive Member Role Status Dates Mireille Garnica MD Primary Care Provider Active St art: February 10, 2024 End: February 10, 2024 Dr. Avtar Ervin DO Attending Provider Active Start : February 10, 2024 End: February 10, 2024 Dr. Avtar Ervin DO Emergency Provider Active Start : February 10, 2024 End: February 10, 2024 Team Status: Inactive Member Role Status Dates [employer] SALES TRAINEE, SALES TRAINEE-C Attending Provider Active S tart: February 19, 2024 End: February 19, 2024 [employer] SALES TRAINEE, SALES TRAINEE-C Referring Provider Active S tart: February 19, 2024 End: February 19, 2024 Dr. Kylah Santizo MD Other Provider Active Star t: February 19, 2024 End: February 19, 2024 Becca Azevedo JUANITA, DO Primary Care Provider Active Start: February 19, 2024 End: February 19, 2024 Team Status: Inactive Member Role Status Dates Alfa Bush SALES TRAINEE, SALES TRAINEE-C Attending Provider Active S tart: March 14, 2024 End: March 14, 2024 Alfa Buhs SALES TRAINEE, SALES TRAINEE-C Referring Provider Active S tart: March 14, [...] 2024 End: April 11, 2024 Alfa Bush SALES TRAINEE, SALES TRAINEE-C Attending Provider Active S tart: April 11, 2024 End: April 11, 2024 Team Status: Inactive Member Role Status Dates Alfa Bush SALES TRAINEE, SALES TRAINEE-C Attending Provider Active S tart: April 15, 2024 End: April 19, 2024 Alfa Bush SALES TRAINEE, SALES TRAINEE-C Referring Provider Active S tart: April 15, [...] 2024 End: May 07, 2024 Alfa Bush SALES TRAINEE, SALES TRAINEE-C Attending Provider Active S tart: May 07, 2024 End: May 07, 2024 Team Status: Inactive Member Role Status Dates Alfa Bush SALES TRAINEE, SALES TRAINEE-C Attending Provider Active S tart: May 16, 2024 End: May 16, 2024 Alfa Bush SALES TRAINEE, SALES TRAINEE-C Referring Provider Active S tart: May 16, [...] St art: May 16, 2024 Alfa Bush SALES TRAINEE, SALES TRAINEE-C Attending Provider Active S tart: May 16, 2024 Alfa Bush SALES TRAINEE, SALES TRAINEE-C Referring Provider Active S tart: May 16, 2024 Team Status: Active Member Role Status Charles Garnica MD Primary Care Provider Active St art: May 16, 2024 Dr. Alex Sol MD Attending Provider Active S tart: May 16, 2024 Team Status: Inactive Member Role Status Charles Garnica MD Primary Care Provider Active St art: May 16, 2024 End: May 16, 2024 Alfa Fowler Rachelle SALES TRAINEE, SALES TRAINEE-C Attending Provider Active S tart: May 16, 2024 End: May 16, 2024 Alfa Janeth Roof SALES TRAINEE, SALES TRAINEE-C Referring Provider Active S tart: May 16, 2024 End: May 16, 2024 Team Status: Inactive Member Role Status Dates Alfa Janeth Rachelle SALES TRAINEE, SALES TRAINEE-C Attending Provider Active S tart: June 07, 2024 End: June 19, 2024 Alfa Janeth Roof SALES TRAINEE, SALES TRAINEE-C Referring Provider Active S tart: June 07, [...] June 28, 2024 End: June 28, 2024 Hien Louie SALES TRAINEE, SALES TRAINEE-C Attending Provider Active Start: June 28, 2024 End: June 28, 2024 Team Status: Inactive Member Role Status Charles Bush SALES TRAINEE, SALES TRAINEE-C Attending Provider Active S tart: July 12, 2024 End: July 12, 2024 Dr. Kylah Santizo MD Other Provider Active Star t: July 12, 2024 End: July 12, 2024 Mireille Garnica MD Primary Care Provider Active St art: July 12, 2024 End: July 12, 2024 Hien Louie SALES TRAINEE, SALES TRAINEE-C Referring Provider Active Start: July 12, 2024 End: July 12, 2024 Team Status: Active Member Role Status Charles Garnica MD Primary Care Provider Active St art: July 19, 2024 Hien Louie SALES TRAINEE, SALES TRAINEE-C Attending Provider Active Start: July 19, 2024 Hien Louie SALES TRAINEE, SALES TRAINEE-C Referring Provider Active Start: July 19, 2024 Team Status: Inactive Member Role Status Charles Garnica MD Primary Care Provider Active St art: July 19, 2024 End: July 19, 2024 Hien Louie SALES TRAINEE, SALES TRAINEE-C Attending Provider Active Start: July 19, 2024 End: July 19, 2024 Hien Louie SALES TRAINEE, SALES TRAINEE-C Referring Provider Active Start: July 19, 2024 End: July 19, 2024 Team Status: Active Member Role/Relationship Status Charles Garnica MD Primary Care Provider Active Team Status: Inactive Member Role/Relationship Status Charles Garnica MD Primary Care Provider Active St art: May 07, 2024 End: May 07, 2024 Mireille Garnica MD Referring Provider Active Start : May 07, 2024 End: May 07, 2024 Alfa Bush SALES TRAINEE, SALES TRAINEE-C Attending Provider Active S tart: May 07, 2024 End: May 07, 2024 Team Status: Inactive Member Role/Relationship Status Charles Bush SALES TRAINEE, SALES TRAINEE-C Attending Provider Active S tart: May 16, 2024 End: May 16, 2024 Alfa Bush SALES TRAINEE, SALES TRAINEE-C Referring Provider Active S tart: May 16, [...] 2024 End: May 16, 2024 Alfa Bush SALES TRAINEE, SALES TRAINEE-C Attending Provider Active S tart: May 16, 2024 End: May 16, 2024 Alfa Bush SALES TRAINEE, SALES TRAINEE-C Referring Provider Active S tart: May 16, 2024 End: May 16, 2024 Team Status: Active Member Role/Relationship Status Charles Garnica MD Primary Care Provider Active St art: May 16, 2024 Dr. Alex Sol MD Attending Provider Active S tart: May 16, 2024 Team Status: Inactive Member Role/Relationship Status Dates Alfa Bush SALES TRAINEE, SALES TRAINEE-C Attending Provider Active S tart: June 07, 2024 End: June 19, 2024 Alfa Bush SALES TRAINEE, SALES TRAINEE-C Referring Provider Active S tart: June 07, [...] June 28, 2024 End: June 28, 2024 Hien Louie SALES TRAINEE, SALES TRAINEE-C Attending Provider Active Start: June 28, 2024 End: June 28, 2024 Team Status: Inactive Member Role/Relationship Status Charles Bush SALES TRAINEE, SALES TRAINEE-C Attending Provider Active S tart: July 12, 2024 End: July 12, 2024 Dr. Kylah Santizo MD Other Provider Active Star t: July 12, 2024 End: July 12, 2024 Mireille Garnica MD Primary Care Provider Active St art: July 12, 2024 End: July 12, 2024 Hien Louie SALES TRAINEE, SALES TRAINEE-C Referring Provider Active Start: July 12, 2024 End: July 12, 2024 Team Status: Inactive Member Role/Relationship Status Dates Mireille Garnica MD Primary Care Provider Active St art: July 19, 2024 End: July 19, 2024 Hien Louie SALES TRAINEE, SALES TRAINEE-C Attending Provider Active Start: July 19, 2024 End: July 19, 2024 Hien Louie SALES TRAINEE, SALES TRAINEE-C Referring Provider Active Start: July 19, 2024 End: July 19, 2024 Team Status: Inactive Member Role/Relationship Status Dates Alfa Bush SALES TRAINEE, SALES TRAINEE-C Attending Provider Active S tart: August 13, 2024 End: August 13, 2024 Dr. Kylah Santizo MD Other Provider Active Star t: August 13, 2024 End: August 13, 2024 Mireille Garnica MD Primary Care Provider Active St art: August 13, 2024 End: August 13, 2024 Hien Louie SALES TRAINEE, SALES TRAINEE-C Referring Provider Active Start: August 13, 2024 End: August 13, 2024 Team Status: Active Member Role/Relationship Status Dates Alfa Bush SALES TRAINEE, SALES TRAINEE-C Attending Provider Active S tart: August 21, 2024 Dr. Kylah Santizo MD Other Provider Active Star t: August 21, 2024 Mireille Garnica MD Primary Care Provider Active St art: August 21, 2024 Hien Louie SALES TRAINEE, SALES TRAINEE-C Referring Provider Active Start: August 21, 2024 Team Status: Inactive Member Role/Relationship Status Dates Mireille Garnica MD Primary Care Provider Active St art: August 26, 2024 End: August 26, 2024 Mireille Garnica MD Referring Provider Active Start : August 26, 2024 End: August 26, 2024 Alfa Bush SALES TRAINEE, SALES TRAINEE-C Attending Provider Active S tart: August 26, 2024 End: August 26, 2024 Team Status: Inactive Member Role/Relationship Status Dates Alfa Bush SALES TRAINEE, SALES TRAINEE-C Attending Provider Active S tart: June 07, 2024 End: June 19, 2024 Alfa Bush SALES TRAINEE, SALES TRAINEE-C Referring Provider Active S tart: June 07, [...] June 28, 2024 End: June 28, 2024 Hien Louie SALES TRAINEE, SALES TRAINEE-C Attending Provider Active Start: June 28, 2024 End: June 28, 2024 Team Status: Inactive Member Role/Relationship Status Dates Alfa Bush SALES TRAINEE, SALES TRAINEE-C Attending Provider Active S tart: July 12, 2024 End: July 12, 2024 Dr. Kylah Santizo MD Other Provider Active Star t: July 12, 2024 End: July 12, 2024 Mireille Garnica MD Primary Care Provider Active St art: July 12, 2024 End: July 12, 2024 Hien Louie SALES TRAINEE, SALES TRAINEE-C Referring Provider Active Start: July 12, 2024 End: July 12, 2024 Team Status: Inactive Member Role/Relationship Status Charles Garnica MD Primary Care Provider Active St art: July 19, 2024 End: July 19, 2024 Hien Louie SALES TRAINEE, SALES TRAINEE-C Attending Provider Active Start: July 19, 2024 End: July 19, 2024 Hien Louie SALES TRAINEE, SALES TRAINEE-C Referring Provider Active Start: July 19, 2024 End: July 19, 2024 Team Status: Inactive Member Role/Relationship Status Dates Alfa Bush NP, SALES TRAINEE-C Attending Provider Active S tart: August 13, 2024 End: August 13, 2024 Dr. Kylah Santizo MD Other Provider Active Star t: August 13, 2024 End: August 13, 2024 Mireille Garnica MD Primary Care Provider Active St art: August 13, 2024 End: August 13, 2024 Hien Louie SALES TRAINEE, SALES TRAINEE-C Referring Provider Active Start: August 13, 2024 End: August 13, 2024 Team Status: Inactive Member Role/Relationship Status Dates Mireille Garnica MD Primary Care Provider Active St art: August 20, 2024 Dr. Korin Schroeder MD Attending Provider Active Start: August 20, 2024 Team Status: Inactive Member Role/Relationship Status Dates Mireille Garnica MD Primary Care Provider Active St art: August 26, 2024 End: August 26, 2024 Mireille Garnica MD Referring Provider Active Start : August 26, 2024 End: August 26, 2024 Alfa Bush SALES TRAINEE, SALES TRAINEE-C Attending Provider Active S tart: August 26, 2024 End: August 26, 2024 Team Status: Active Member Role/Relationship Status Dates Alfa Bush SALES TRAINEE, SALES TRAINEE-C Attending Provider Active S tart: September 03, 2024 Dr. Kylah Santizo MD Other Provider Active Star t: September 03, 2024 Mireille Garnica MD Primary Care Provider Active St art: September 03, 2024 Hien Louie SALES TRAINEE, SALES TRAINEE-C Referring Provider Active Start: September 03, 2024 Team Status: Inactive Member Role/Relationship Status Dates Mireille Garnica MD Primary Care Provider Active St art: September 10, 2024 End: September 10, 2024 Alfa Bush SALES TRAINEE, SALES TRAINEE-C Attending Provider Active S tart: September 10, 2024 End: September 10, 2024 Alfa Bush SALES TRAINEE, SALES TRAINEE-C Referring Provider Active S tart: September 10, 2024 End: September 10, 2024 Team Status: Active Member Role/Relationship Status Charles Garnica MD Primary Care Provider Active St art: September 10, 2024 Dr. Alex Sol MD Attending Provider Active S tart: September 10, 2024 Team Status: Inactive Member Role/Relationship Status Dates Alfa Bush SALES TRAINEE, SALES TRAINEE-C Attending Provider Active S tart: September 03, 2024 End: September 19, 2024 Dr. Kylah Santizo MD Other Provider Active Star t: September 03, 2024 End: September 19, 2024 Mireille Garnica MD Primary Care Provider Active St art: September 03, 2024 End: September 19, 2024 Hien Louie NP, SALES TRAINEE-C Referring Provider Active Start: September 03, 2024 End: September 19, 2024 FOR RECORDS PERTAINING TO PATIENTS WHO [...] BE BASED ON THE PRIMARY CLINICAL RECORDS. [facility] [employer] [facility]. provides no warranty or guarantee of the accuracy or completeness of information in this document.
== END | disposition home or self-care (01) ==
LOC: US 10:01
PROVIDERS: PCP Family Medicine; Referring Provider Internal Medicine Nephrology; Visit Provider Internal Medicine Nephrology
DX: N18.4 Chronic kidney disease, stage 4 (severe) (principal)
CPT/HCPCS: 76770

== ENCOUNTER 2024-10-04 12:25 | Outpatient (RCR) | payer MEDICARE, BC, SELFPAY ==
[2024-09-25 14:43] LABS: Prothrombin Time (Protime)PT. 21.9 SECONDS (11.7-14.9)
[2024-09-27 12:41] LABS: Prothrombin Time (Protime)PT. 24.9 SECONDS (11.7-14.9)
[2024-10-04 13:53] LABS: Prothrombin Time (Protime)PT. 29.3 SECONDS (11.7-14.9)
== END 2024-10-04 18:00 | disposition home or self-care (01) ==
LOC: LAB 12:25
PROVIDERS: PCP Family Medicine; Referring Provider Nurse Practitioner Gerontology; Visit Provider Nurse Practitioner Family
DX: I48.92 Unspecified atrial flutter (principal); Z95.2 Presence of prosthetic heart valve; Z79.01 Long term (current) 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
CPT/HCPCS: 36415; 85610

== ENCOUNTER → 2024-10-07 | Outpatient (CLI) | payer MEDICARE, BC, SELFPAY ==
[2024-10-07 13:15] LABS: Anion Gap 14 (5-15); BUN 50 mg/dL (4-19); BUN/Creat Ratio 19.6 RATIO (10-20); Calcium,Total 10.7 mg/dL (7.6-11.0); Carbon Dioxide 20.1 mmol/L (21.0-32.0); Chloride 106 mmol/L (98-108); Glucose 85 mg/dL (70-99); Potassium 4.3 mmol/L (3.3-5.1)
== END | disposition home or self-care (01) ==
LOC: LAB 11:54
PROVIDERS: PCP Family Medicine; Referring Provider Nurse Practitioner Family; Visit Provider Nurse Practitioner Family
DX: N28.9 Disorder of kidney and ureter, unspecified (principal)
CPT/HCPCS: 36415; 80048

== ENCOUNTER 2024-11-15 12:05 | Outpatient (RCR) | payer MEDICARE, BC, SELFPAY ==
[2024-10-25 11:53] LABS: Prothrombin Time (Protime)PT. 25.4 SECONDS (11.7-14.9)
[2024-11-01 12:55] LABS: Prothrombin Time (Protime)PT. 31.8 SECONDS (11.7-14.9)
[2024-11-15 12:54] LABS: Prothrombin Time (Protime)PT. 31.8 SECONDS (11.7-14.9)
== END 2024-11-19 18:00 | disposition home or self-care (01) ==
LOC: LAB 12:05
PROVIDERS: PCP Family Medicine; Referring Provider Nurse Practitioner Gerontology; Visit Provider Nurse Practitioner Family
DX: I48.92 Unspecified atrial flutter (principal); Z95.2 Presence of prosthetic heart valve; Z79.01 Long term (current) 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
CPT/HCPCS: 36415; 85610

== ENCOUNTER → 2024-12-17 | Outpatient (CLI) | payer MEDICARE, BC, SELFPAY ==
[2024-12-17 11:52] LABS: Anion Gap 10 (5-15); BUN 38 mg/dL (4-19); BUN/Creat Ratio 20.8 RATIO (10-20); Calcium,Total 9.1 mg/dL (7.6-11.0); Carbon Dioxide 24.9 mmol/L (21.0-32.0); Chloride 107 mmol/L (98-108); Glucose 98 mg/dL (70-99); Magnesium 2.3 mg/dL (1.5-2.2); Potassium 4.6 mmol/L (3.3-5.1)
== END | disposition home or self-care (01) ==
LOC: LAB 09:45
PROVIDERS: PCP Family Medicine; Referring Provider Student in an Organized Health Care Education/Training Program; Visit Provider Student in an Organized Health Care Education/Training Program
DX: R00.0 Tachycardia, unspecified (principal)
CPT/HCPCS: 36415; 80048; 83735; 84443

== ENCOUNTER 2024-12-19 12:28 | Outpatient (RCR) | payer MEDICARE, BC, SELFPAY ==
[2024-12-12 14:22] LABS: Prothrombin Time (Protime)PT. 25.5 SECONDS (11.7-14.9)
[2024-12-19 13:15] LABS: Prothrombin Time (Protime)PT. 28.6 SECONDS (11.7-14.9)
== END 2024-12-19 18:00 | disposition home or self-care (01) ==
LOC: LAB 12:28
PROVIDERS: PCP Family Medicine; Referring Provider Nurse Practitioner Gerontology; Visit Provider Nurse Practitioner Family
DX: I48.92 Unspecified atrial flutter (principal); Z95.2 Presence of prosthetic heart valve; Z79.01 Long term (current) 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
CPT/HCPCS: 36415; 85610

== ENCOUNTER → 2024-12-26 | Outpatient (CLI) | payer MEDICARE, BC, SELFPAY ==
--- NOTE | 2024-12-26 07:45 | BI_ITS ---
EXAM: BI/SCRN MAMM (CAD)W/EDDA BILAT
== END | disposition home or self-care (01) ==
LOC: OPBI 07:42
PROVIDERS: PCP Family Medicine; Referring Provider Nurse Practitioner Women's Health; Visit Provider Nurse Practitioner Women's Health
DX: Z12.31 Encounter for screening mammogram for malignant neoplasm of breast (principal)
CPT/HCPCS: 77063; 77067

== ENCOUNTER → 2025-01-02 | Outpatient (CLI) | payer MEDICARE, BC, SELFPAY | END | disposition home or self-care (01) | LOC: PSN 09:56 | PROVIDERS: PCP Family Medicine; Referring Provider Student in an Organized Health Care Education/Training Program; Visit Provider Student in an Organized Health Care Education/Training Program | DX: R00.0 Tachycardia, unspecified (principal) | CPT/HCPCS: 93225; 93226 ==

== ENCOUNTER 2025-01-15 08:19 | Outpatient (RCR) | payer MEDICARE, BC, SELFPAY ==
[2025-01-09 13:46] LABS: Prothrombin Time (Protime)PT. 19.6 SECONDS (11.7-14.9)
[2025-01-13 08:59] LABS: Prothrombin Time (Protime)PT. 22.6 SECONDS (11.7-14.9)
[2025-01-15 09:43] LABS: Prothrombin Time (Protime)PT. 25.9 SECONDS (11.7-14.9)
== END 2025-01-18 18:00 | disposition home or self-care (01) ==
LOC: LAB 08:19
PROVIDERS: PCP Family Medicine; Referring Provider Nurse Practitioner Gerontology; Visit Provider Nurse Practitioner Family
DX: I48.92 Unspecified atrial flutter (principal); Z95.2 Presence of prosthetic heart valve; Z79.01 Long term (current) 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
CPT/HCPCS: 36415; 85610

== ENCOUNTER 2025-02-19 07:56 | Outpatient (RCR) | payer MEDICARE, BC, SELFPAY ==
[2025-01-22 09:41] LABS: Prothrombin Time (Protime)PT. 22.9 SECONDS (11.7-14.9)
[2025-01-22 10:45] LABS: AST(SGOT) 30 U/L (<=31); Alanine Aminotransfer ALT/SGPT 26 U/L (<=34); Albumin, Serum 3.8 g/dL (3.4-4.8); Alkaline Phosphatase 106 U/L (35-104); Anion Gap 12 (5-15); BUN 32 mg/dL (4-19); BUN/Creat Ratio 17.1 RATIO (10-20); Bilirubin, Direct 0.47 mg/dL (0.00-0.30); Calcium,Total 9.5 mg/dL (7.6-11.0); Carbon Dioxide 22.2 mmol/L (21.0-32.0); Chloride 107 mmol/L (98-108); Cholesterol 150 mg/dL (<=200); Globulin 2.6 g/dL (2.2-4.2); Glucose 108 mg/dL (70-99); Low Density Lipoprotein Calc. 73 mg/dL; Potassium 4.1 mmol/L (3.3-5.1); Triglycerides 107 mg/dL; Very Low Density Lipoprotein 21 mg/dL (5-40); cholesterol:hdl ratio screen 2.62
[2025-01-24 11:18] LABS: Prothrombin Time (Protime)PT. 23.1 SECONDS (11.7-14.9)
[2025-01-28 12:27] LABS: Prothrombin Time (Protime)PT. 32.0 SECONDS (11.7-14.9)
[2025-02-06 13:15] LABS: Hematocrit 39.1 % (37-47); Hemoglobin 12.2 g/dL (12.0-15.0); Immature Granulocytes Count 0.040 X10^3/uL (0.0-0.0); Mean Corp Hgb Conc 31.2 g/dL (32-36); Mean Corpuscular Volume 110.5 fL (81-99); Mean Platelet Vol. 10.4 fl (6.2-12.0); NRBC Flagged by Analyzer 0 % (0-5); POSITIVE MORPHOLOGY YES; Platelet Count 296 K/mm3 (150-450); RBC Distribution Width CV 15.9 % (11.6-14.6); RBC Distribution Width SD 65.8 fl (35.1-43.9); Red Blood Count 3.54 M/mm3 (4.2-5.4); White Blood Count 8.8 K/mm3 (4.4-11.0)
[2025-02-06 13:16] LABS: Prothrombin Time (Protime)PT. 47.7 SECONDS (11.7-14.9)
[2025-02-06 13:27] LABS: Differential Indicated SCAN CRITERIA MET
[2025-02-06 13:49] LABS: Anisocytosis 1+; Differential Comment SCANNED
[2025-02-06 14:06] LABS: AST(SGOT) 36 U/L (<=31); Alanine Aminotransfer ALT/SGPT 23 U/L (<=34); Albumin, Serum 4.3 g/dL (3.4-4.8); Alkaline Phosphatase 111 U/L (35-104); Anion Gap 12 (5-15); BUN 29 mg/dL (4-19); BUN/Creat Ratio 17.9 RATIO (10-20); Calcium,Total 10.2 mg/dL (7.6-11.0); Carbon Dioxide 19.6 mmol/L (21.0-32.0); Chloride 111 mmol/L (98-108); Globulin 2.6 g/dL (2.2-4.2); Glucose 93 mg/dL (70-99); Potassium 4.9 mmol/L (3.3-5.1)
[2025-02-10 12:20] LABS: Prothrombin Time (Protime)PT. 33.8 SECONDS (11.7-14.9)
[2025-02-17 15:16] LABS: Prothrombin Time (Protime)PT. 22.1 SECONDS (11.7-14.9)
[2025-02-19 08:21] LABS: Prothrombin Time (Protime)PT. 30.0 SECONDS (11.7-14.9)
== END 2025-02-19 18:00 | disposition home or self-care (01) ==
LOC: LAB 07:56
PROVIDERS: Internal Medicine Cardiovascular Disease; Student in an Organized Health Care Education/Training Program; PCP Family Medicine; Referring Provider Nurse Practitioner Family; Visit Provider Nurse Practitioner Family
DX: Z79.01 Long term (current) 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 (principal); Z95.2 Presence of prosthetic heart valve; I48.91 Unspecified atrial fibrillation; I50.20 Unspecified systolic (congestive) heart failure; I42.8 Other cardiomyopathies; R00.0 Tachycardia, unspecified; E78.5 Hyperlipidemia, unspecified
CPT/HCPCS: 36415; 80048; 80053; 80061; 80076; 84443; 85025; 85610